=== PATIENT | female | born 1985 | race Caucasian/White ===

== ENCOUNTER 2022-12-14 23:48 | Emergency (ER) | payer BC, MEDICARE, SELFPAY ==
[2022-12-14 23:55] VITALS: PULSE 84; RESP 19
[2022-12-14 23:56] VITALS: BP 132/100; PULSE 81; RESP 17; O2SAT 97
[2022-12-14 23:57] VITALS: BP 132/100; PULSE 86; RESP 14; TEMP 36.4; O2SAT 98; BMI 36.1
[2022-12-15] VITALS (7 sets, daily range): BP systolic 129–137; BP diastolic 84–103; PULSE 80–96; RESP 6–25
--- NOTE | 2022-12-15 00:34 | ED_ITS ---
HPI - Chest Pain General Chief Complaint: Chest Pain Stated Complaint: chest pain Time Seen by Provider: 12/15/22 00:18 Source: patient Mode of arrival: walk-in Limitations: no limitations History of Present Illness HPI narrative: patient describes increased stress at home. States her 19 y.o son jumb through the window of their home and ran to the [employer] [facility] [place]. patient states she is stressed trying to deal with her son. Developed chest and back pain that started around 11Pm. Still has some pain but is feeling better. [place] a little short of breath enroute but this has resolved. Does have a history of Asthma and she Vapes. No nausea or abdominal pain. No fever or cough. Feels anxious and is asking for something for her anxiety Related Data Home Medications Medication Instructions Recorded Confirmed levothyroxine 100 mcg tablet 100 mcg PO DAILY 12/15/22 12/15/22 metformin 500 mg tablet 500 mg PO BID 12/15/22 12/15/22 methylphenidate HCl 10 mg 10 mg PO DAILY 12/15/22 12/15/22 tablet,extended release Allergies Allergy/AdvReac Type Severity Reaction Status Date / Time ziprasidone [From Geodon] Allergy Unknown Verified 12/15/22 00:01 Review of Systems ROS Status of ROS 10 or more systems reviewed and unremarkable except as noted in history and below Exam Constitutional Vital Signs - 24 hr 12/14/22 23:57 Temperature 97.6 F Pulse Rate [Monitor] 86 Respiratory Rate 14 Blood Pressure [Right Arm] 132/100 H Pulse Oximetry 98 Common normals: no apparent distress, oriented x3, no limitations, healthy appearing, alert and well nourished [facility] Common normals: normocephalic and head/scalp atraumatic Eye Common normals: PERRL, EOMs intact bilaterally, conjunctivae normal and no scleral icterus Respiratory Common normals: normal respiratory effort, no retractions, no use of accessory muscles and clear to auscultation bilaterally Cardio Common normals: no JVD, regular rate, regular rhythm, S1 normal heart sound and S2 normal heart sound GI Common normals: Normal to inspection, nondistended, normoactive bowel sounds present, soft to palpation and non-tender Extremity Common normals: normal to inspection and full ROM Neuro Common normals: oriented x3, CN's II-XII intact bilaterally, moves all extremities and no focal motor deficits Psych Mood and affect: anxious Course Vital Signs Vital signs: Vital Signs Temperature 97.6 F 12/14/22 23:57 Pulse Rate 86 12/14/22 23:57 Respiratory Rate 14 12/14/22 23:57 Blood Pressure 132/100 H 12/14/22 23:57 Pulse Oximetry 98 12/14/22 23:57 Temperature 97.6 F 12/14/22 23:57 Pulse Rate 86 12/14/22 23:57 Respiratory Rate 14 12/14/22 23:57 Blood Pressure 132/100 H 12/14/22 23:57 Pulse Oximetry 98 12/14/22 23:57 MDM - Chest Pain MDM Narrative Medical decision making narrative: patient presents complaining of increased stress at home related to her 19 y.o son. Presented with chest and back pain and feeling anxious. Given dose of ativan and was able to relax. Workup in the department included a normal EKG. neg d-dimer and neg troponin. She did not want to wait for repeat Troponin. She feels her symptoms are all anxiety related. Discharged home to follow up with her doctor Lab Data Labs: Lab Results 12/15/22 Range/Units 00:05 WBC 8.6 (4.0-11.0) 10^3/uL RBC 4.99 (4.20-5.40) 10^6/uL Hgb 14.6 (12.0-16.0) g/dL Hct 43.0 (36.0-48.0) % MCV 86.2 (81.0-99.0) fL MCH 29.3 (26.7-34.0) pg MCHC 34.0 (29.9-35.2) g/dL RDW 12.1 (11.0-15.0) % Plt Count 308 (150-450) 10^3/uL MPV 10.5 (9.5-13.5) fL Neut % (Auto) 47.5 (43.0-75.0) % Lymph % (Auto) 41.4 (20.5-60.0) % [place] % (Auto) 6.7 (1.7-12.0) % Eos % (Auto) 3.7 (0.9-7.0) % Baso % (Auto) 0.5 (0.2-2.0) % Neut # (Auto) 4.1 (1.4-6.5) 10^3/uL Lymph # (Auto) 3.5 (1.2-3.8) 10^3/uL [place] # (Auto) 0.6 (0.3-0.8) 10^3/uL Eos # (Auto) 0.3 (0.0-0.7) 10^3/uL Baso # (Auto) 0.0 (0.0-0.1) 10^3/uL Abs Immat Gran (auto) 0.02 (0.00-0.03) 10^3/uL Imm/Tot Granulo (auto) 0.2 (0.0-0.5) % D-Dimer <0.19 (<=0.59) mg/L FEU Sodium 139 (136-145) mmol/L Potassium 3.7 (3.5-5.1) mmol/L Chloride 104 (98-107) mmol/L Carbon Dioxide 24.8 (21.0-32.0) mmol/L Anion Gap 13.9 BUN 7.0 (7.0-18.0) mg/dL Creatinine 0.80 (0.55-1.02) mg/dL Est GFR ( Amer) >60 (>=60) Est GFR (Non-Af Amer) >60 (>=60) BUN/Creatinine Ratio 8.8 Glucose 87 (74-106) mg/dL Calcium 9.1 (8.5-10.1) mg/dL Troponin I High Sens 12.7 (4.0-51.3) pg/mL Discharge Plan Discharge Chief Complaint: Chest Pain Clinical Impression: Anxiety, Chest pain Patient Disposition: Home, Self-Care Prescriptions / Home Meds: No Action metformin 500 mg tablet 500 mg PO BID methylphenidate HCl 10 mg tablet extended release 10 mg PO DAILY levothyroxine 100 mcg tablet 100 mcg PO DAILY Instructions: Chest Pain (ED), Anxiety (ED) Additional Instructions: follow up with your family doctor in the next 2-3 days for recheck Stand Alone Forms: Portal Instructions Referrals: Physician,Non-Staff, MD [Primary Care Provider] - 1 week
--- NOTE | 2022-12-15 00:38 | ECG_ITS ---
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
--- NOTE | 2022-12-15 00:38 | XR_ITS ---
The [address] [address] Patient Name: ALBERTA LLAMAS MRN: [id number] date: 1985 Sex: F Assigned Patient Location: ER Current Patient Location: Accession/Order Number: [id number] Exam Date: 12/15/2022 00:40 Report Date: 12/15/2022 01:25 At the request of: KIERSTEN DOUGHERTY Procedure: XR chest 1V CXR HISTORY: Shortness of breath. COMPARISON: None. TECHNIQUE: 1 view of the chest submitted for review. FINDINGS: The lungs are hyperaerated. The cardiac silhouette measures within normal. Pulmonary vascularity is unremarkable. Osseous structures are normal for age. IMPRESSION: No plain film evidence of acute cardiopulmonary abnormality. Electronically authenticated by: DANIAL CORTEZ Date: 12/15/2022 01:25
[2022-12-15 00:54] LABS: Basophils Percent Auto 0.5 % (0.2-2.0); Eosinophils Absolute Auto 0.3 10^3/uL (0.0-0.7); Eosinophils Percent Auto 3.7 % (0.9-7.0); Hemoglobin 14.6 g/dL (12.0-16.0); Immature Granulocytes Abs Auto 0.02 10^3/uL (0.00-0.03); Immature Granulocytes Pct Auto 0.2 % (0.0-0.5); Lymphocytes Absolute Auto 3.5 10^3/uL (1.2-3.8); Lymphocytes Percent Auto 41.4 % (20.5-60.0); Mean Corpuscular Hemoglobin 29.3 pg (26.7-34.0); Mean Corpuscular Volume 86.2 fL (81.0-99.0); Mean Platelet Volume 10.5 fL (9.5-13.5); Monocytes Absolute Auto 0.6 10^3/uL (0.3-0.8); Monocytes Percent Auto 6.7 % (1.7-12.0); Neutrophils Absolute Auto 4.1 10^3/uL (1.4-6.5); Neutrophils Percent Auto 47.5 % (43.0-75.0); Platelet Count 308 10^3/uL (150-450); Red Blood Count 4.99 10^6/uL (4.20-5.40); Red Cell Distribution Width 12.1 % (11.0-15.0); White Blood Count 8.6 10^3/uL (4.0-11.0)
[2022-12-15] MEDS: LORAZEPAM 0.5 MG TABLET PO (01:01)
[2022-12-15 01:02] LABS: D Dimer <0.19 mg/L FEU (<=0.59)
[2022-12-15 01:05] LABS: Anion Gap 13.9; BUN Creatinine Ratio 8.8; Calcium 9.1 mg/dL (8.5-10.1); Carbon Dioxide 24.8 mmol/L (21.0-32.0); Chloride 104 mmol/L (98-107); Estimated GFR (African America >60 (>=60); Estimated GFR (Non-African Ame >60 (>=60); Glucose 87 mg/dL (74-106); Potassium 3.7 mmol/L (3.5-5.1); Sodium 139 mmol/L (136-145); Troponin I High Sensitivity 12.7 pg/mL (4.0-51.3)
== END 2022-12-15 02:56 | disposition home or self-care (01) ==
PROVIDERS: Emergency Provider Internal Medicine
DX: F41.9 Anxiety disorder, unspecified (principal); R07.9 Chest pain, unspecified; J45.909 Unspecified asthma, uncomplicated; F17.290 Nicotine dependence, other tobacco product, uncomplicated; Z79.890 Hormone replacement therapy; Z79.84 Long term (current) use of oral hypoglycemic drugs; Z79.899 Other long term (current) drug therapy
CPT/HCPCS: 36415; 71045; 80048; 84484; 85025; 85378; 93005; 99285

== ENCOUNTER 2023-02-02 10:45 | Outpatient (OUT) | payer BC, MEDICARE, SELFPAY ==
--- NOTE | 2023-02-02 10:54 | US_ITS ---
[address] [address] Patient Name: ALBERTA LLAMAS MRN: [id number] date: 1985 Sex: F Assigned Patient Location: US Current Patient Location: US Accession/Order Number: [id number] Exam Date: 02/02/2023 10:56 Report Date: 02/02/2023 13:40 At the request of: NITHYA RICKS Procedure: US thyroid EXAMINATION: US thyroid HISTORY: Multinodular Goiter E04.2 COMPARISON: Ultrasound thyroid 05/01/2021, ultrasound thyroid biopsy 05/16/2021 FINDINGS: RIGHT LOBE: Heterogeneous echotexture containing multiple nodules, the largest 3 nodules are: 15 mm TR 4 within mid body, 9 mm TR 4 within mid body, and 14 mm TR 3 within inferior pole. Lobe size: 4.8 x 1.6 1.6 cm LEFT LOBE: Heterogeneous echotexture texture containing multiple nodules, the largest 3 nodules are: 19 mm TR 4 within mid body, 9 mm TR 4 within mid body, and 6 mm TR 4 within superior pole. Lobe size: 4.2 x 1.9 x 1.6 cm ISTHMUS: Heterogeneous and minimally thickened. Thickness: 4 mm US/US thyroid IMPRESSION: 1. Heterogeneous thyroid gland containing numerous nodules; grossly stable. Overall appearance favors multinodular goiter. Electronically authenticated by: IRVING KRATF Date: 02/02/2023 13:40
== END 2023-02-02 10:46 | disposition home or self-care (01) ==
LOC: US 10:48
PROVIDERS: Visit Provider Otolaryngology
DX: E04.2 Nontoxic multinodular goiter (principal)
CPT/HCPCS: 76536

== ENCOUNTER 2023-04-29 07:57 | Outpatient (OUT) | payer BC, MEDICARE, SELFPAY ==
[2023-04-30 04:09] LABS: Progesterone 7.3 ng/mL (.)
== END 2023-04-29 07:58 | disposition home or self-care (01) ==
LOC: LAB 07:58
PROVIDERS: Visit Provider Obstetrics & Gynecology
DX: N92.6 Irregular menstruation, unspecified (principal); Z31.41 Encounter for fertility testing
CPT/HCPCS: 36415; 84144

== ENCOUNTER 2023-05-30 10:42 | Outpatient (OUT) | payer BC, MEDICARE, SELFPAY ==
[2023-05-31 08:11] LABS: Progesterone 12.6 ng/mL (.)
== END 2023-05-30 10:43 | disposition home or self-care (01) ==
PROVIDERS: Visit Provider Obstetrics & Gynecology
DX: N92.6 Irregular menstruation, unspecified (principal); Z31.41 Encounter for fertility testing
CPT/HCPCS: 36415; 84144

== ENCOUNTER 2023-06-29 15:30 | Outpatient (OUT) | payer BC, MEDICARE, SELFPAY ==
--- OUTSIDE RECORDS SUMMARY | 2023-06-29 15:35 | XMS_ITS | CCD ---
Author Name Unknown Address [address] [place] [address] Organization [facility] Care Team Providers Care Hvac/R Service Technician Name Role Phone Petros Lion Unavailable WeaverMelissa tee Unavailable Clint Ortiz Primary Care Physician Unavail able FAWWAD, REED H Primary Care Unavailable ROJELIO ., DR HOWARD Consulting Unavailable ROJELIO ., DR HOWARD Attending Unavailable ROJELIO ., DR HOWARD Admitting Unavailable FAWWAD, REED H Consulting Unavailable FAWWAD, REED H Attending Unavailable FAWWAD, REED H Admitting Unavailable FAWWAD, REED H Primary Care Unavailable PAY ., DR PEREZ Attending Unavailable PAY ., DR PEREZ Admitting Unavailable GRECHNY ., EFRAIN GRIMALDO Consulting Unavailabl e FAWWAD, REED H Primary Care Unavailable KEYANNA SHARPE Consulting Unavailable ROJELIO ., DR HOWARD Admitting Unavailable ROJELIO ., DR HOWARD Consulting Unavailable FAWWAD, REED H Primary Care Unavailable ROJELIO ., DR HOWARD Attending Unavailable ROJELIO ., DR HOWARD Admitting Unavailable ROJELIO ., DR HOWARD Consulting Unavailable FAWWAD, REED H Primary Care Unavailable ROJELIO ., DR HOWARD Attending Unavailable FAWWAD, REED H Consulting Unavailable FAWWAD, REED H Attending Unavailable FAWWAD, REED H Admitting Unavailable FAWWAD, REED H Primary Care Unavailable FAWWAD, REED H Primary Care Unavailable ROJELIO ., DR HOWARD Consulting Unavailable ROJELIO ., DR HOWARD Attending Unavailable ROJELIO ., DR HOWARD Admitting Unavailable FAWWAD, REED H Primary Care Unavailable SCOTT, DR DIDI Macdonald Attending Unavailabl e REINECK, DR DIDI Macdonald Admitting [facility]ailabl [facility] Unavailable ROJELIO ., DR HOWARD Consulting Unavailable ROJELIO ., DR HOWARD Admitting Unavailable ROJELIO ., DR HOWARD Attending [facility]available [facility] Primary Care Unavailable ROJELIO ., DR HOAWRD Consulting Unavailable ROJELIO ., DR HOWARD Admitting Unavailable ROJELIO ., DR HOWARD Attending Unavailable ROJELIO ., DR HOWARD Consulting Unavailable ROJELIO ., DR HOWARD Attending Unavailable [facility] Primary Care Unavailable ROJELIO ., DR HOWARD Admitting Unavailable ROJELIO ., DR HOWARD Admitting Unavailable ROJELIO ., DR HOWARD Consulting Unavailable FAWWAD, [facility] Primary Care Unavailable ROJELIO ., DR HOWARD Attending Unavailable ROJELIO ., DR HOWARD Admitting Unavailable ROJELIO ., DR HOWARD Consulting Unavailable [facility] Primary Care Unavailable ROJELIO ., DR HOWARD Attending Unavailable ROJELIO ., DR HOWARD Admitting Unavailable ROJELIO ., DR HOWARD Consulting Unavailable ROJELIO ., DR HOWARD Attending Unavailable [facility], DR RUANO Primary Care Unavailable FAWAD, REED H Consulting Unavailable FAWAD, REED H Attending Unavailable FAWAD, REED H Admitting Unavailable FAWWAD, REED H Primary Care Unavailable Clint Ortiz Primary Care Physician Unavail able Clint Ortiz Attending Unavailable Clint Ortiz Attending Unavailable Clint Ortiz Attending Unavailable Clint Ortiz Attending Unavailable Clint Ortiz Attending Unavailable Clint Ortiz Attending Unavailable Clint Ortiz Referring Unavailable Clint Ortiz Admitting Unavailable Clint Ortiz Attending Unavailable Clint Ortiz Referring Unavailable Clint Ortiz Admitting Unavailable Nick Vinnie W. Admitting Unavailable Nick Vinnie W. Attending Unavailable Clint Ortiz Admitting Unavailable Clint Ortiz Attending Unavailable Clint Ortiz Attending Unavailable Clint Ortiz Admitting Unavailable Nick Vinnie W. Attending Unavailable Clint Ortiz Attending Unavailable Clint Ortiz Attending Unavailable Clint Ortiz Attending Unavailable Allergies Allergy Classification Reported Allergen(s) Allergy Type Date of Onset Reaction(s) Facility (16 sources) ziprasidone; Translations: [ziprasidone] Drug Allergy anaphylaxis, Anaphylaxis (disorder) [facility] Care (2 sources) ziprasidone; Translations: [Geodon] Drug Allergy [facility] (1 source) Misc-Drug Drug allergy (disorder) [facility] Medications Current Medications Medication Drug Class(es) Dates Sig (Normalized) Sig (Original) [id number] 200 actuat albuterol 0.09 mg/actuat metered dose inhaler (1 source) beta2-Adrenergic Agonist Start: 11-15-2021 take 2 puff(s) by inhalation every four to six hours as needed Albuterol Sulfate HFA 108 (90 Base) MCG/ACT 2 puffs as needed Inhalation every 4-6 hours for 14 days Nov, Active amitriptyline hydrochloride 10 mg oral tablet (1 source) Tricyclic Antidepressant take 1 tablet by mouth every twenty-four hours Amitriptyline HCl 10 MG 1 tablet at bedtime Orally Once a day Active atomoxetine 40 mg oral capsule (1 source) Norepinephrine Reuptake Inhibitor Start: 10-21-2022 take 1 capsule by mouth once daily in the morning Strattera 40 mg Cap 40 mg = 1 cap(s), Oral, qAM, # 30 cap(s), Refills(s) 5, Pharmacy: [facility]/pharmacy #[id number], 158, cm, 09/29/22 9:07:00 EDT, Height/Length Dosing, 92.3, kg, 09/29/22 9:07:00 EDT, Weight Dosing Start Date: 10/21/22 Status: Ordered benzonatate 100 mg oral capsule (1 source) Non-narcotic Antitussive Start: 11-15-2021 take 1 capsule by mouth three times daily as needed Tessalon Perles 100 MG 1 capsule as needed Orally Three times a day for 7 days Nov, Active busPIRone hydrochloride 10 mg oral tablet (8 sources) Start: 04-21-2023 take 1 tablet by mouth twice daily busPIRone 10 mg Tab 10 mg = 1 tab(s), Oral, BID, # 60 tab(s), Refills(s) 5, Pharmacy: [facility]/pharmacy #[id number], 158, cm, 04/21/23 8:07:00 EST, Height/Length Dosing, 86, kg, 04/21/23 8:07:00 EST, Weight Dosing Start Date: 04/21/23 Status: Ordered Start: 02-18-2023 take 1 tablet by rossana twice daily busPIRone 5 mg Tab 5 mg = 1 tab(s), Oral, BID, # 60 tab(s), Refills(s) 5, Pharmacy: [facility]/pharmacy #[id number], 158, cm, 02/18/23 10:07:00 EDT, Height/Length Dosing, 85.9, kg, 02/18/23 10:07:00 EDT, Weight Dosing Start Date: 02/18/23 Status: Ordered DULoxetine 30 mg delayed release oral capsule (2 sources) Serotonin and Norepinephrine Reuptake Inhibitor Start: 06-25-2023 take 1 capsule by mouth twice daily duloxetine 30 mg oral delayed release capsule 30 mg = 1 cap(s), Oral, BID, # 60 cap(s), Refills(s) 2, Pharmacy: [facility]/pharmacy #[id number], 155, cm, 06/25/23 15:06:00 EST, Height/Length Dosing, 87.5, kg, 06/25/23 15:06:00 EST, Weight Dosing Start Date: 06/25/23 Status: Ordered letrozole 2.5 mg oral tablet (16 sources) Aromatase Inhibitor Start: 09-29-2022 Femara 2.5 mg Tab Refills(s) 0 Start Date: 09/29/22 Status: Ordered take 1 tablet by rossana every twenty-four hours Femara 2.5 MG 1 tablet Orally Once a day Active levothyroxine sodium 0.075 mg oral tablet (16 sources) l-Thyroxine Start: 04-21-2023 take 1 tablet by mouth once daily levothyroxine 75 mcg (0.075 mg) Tab 75 mcg = 1 tab(s), Oral, Daily, # 30 tab(s), Refills(s) 5, Pharmacy: [facility]/pharmacy #[id number], 158, cm, 04/21/23 8:07:00 EST, Height/Length Dosing, 86, kg, 04/21/23 8:07:00 EST, Weight Dosing Start Date: 04/21/23 Status: Ordered Start: 01-07-2023 take 1 tablet by rossana th once daily levothyroxine 88 mcg (0.088 mg) Tab 88 mcg = 1 tab(s), Oral, Daily, # 30 tab(s), Refills(s) 5, Pharmacy: [facility]/pharmacy #[id number], 158, cm, 01/07/23 10:49:00 EDT, Height/Length Dosing, 86.3, kg, 01/07/23 10:49:00 EDT, Weight Dosing Start Date: 01/07/23 Status: Ordered Start: 11-21-2022 take 1 tablet by rossana th once daily levothyroxine 100 mcg (0.1 mg) Tab 100 mcg = 1 tab(s), Oral, Daily, # 90 tab(s), Refills(s) 4, Pharmacy: [facility]/pharmacy #[id number], 158, cm, 09/29/22 9:07:00 EDT, Height/Length Dosing, 92.3, kg, 09/29/22 9:07:00 EDT, Weight Dosing Start Date: 11/21/22 Status: Ordered Start: 09-29-2022 take 1 tablet by rossana th once daily levothyroxine 100 mcg (0.1 mg) Tab 100 mcg = 1 tab(s), Oral, Daily, # 30 tab(s), Refills(s) 0 Start Date: 09/29/22 Status: Ordered take 1 tablet by rossana th once daily in the morning Levothroid 100 MCG 1 tablet in the morning on an empty stomach Orally Once a day Active metFORMIN hydrochloride 500 mg oral tablet (16 sources) Biguanide Start: 11-21-2022 take 1 tablet by mouth twice daily metformin 500 mg Tab 500 mg = 1 tab(s), Oral, BID, # 180 tab(s), Refills(s) 4, Pharmacy: [facility]/pharmacy #[id number], 158, cm, 09/29/22 9:07:00 EDT, Height/Length Dosing, 92.3, kg, 09/29/22 9:07:00 EDT, Weight Dosing Start Date: 11/21/22 Status: Ordered Start: 09-29-2022 take 1 tablet by rossana th twice daily metformin 500 mg Tab 500 mg = 1 tab(s), Oral, BID, # 60 tab(s), Refills(s) 0 Start Date: 09/29/22 Status: Ordered take 1 tablet by rossana every twenty-four hours metFORMIN HCl 500 MG 1 tablet with a meal Orally Once a day Active 8 hr methylphenidate hydrochloride 20 mg extended release oral tablet (11 sources) Central Nervous System Stimulant Start: 06-09-2023 take 1 tablet by mouth once daily methylphenidate 20 mg ER Tab 20 mg = 1 tab(s), Oral, Daily, # 30 tab(s), Refills(s) 0, Pharmacy: [facility]/pharmacy #[id number], 155, cm, 06/07/23 9:24:00 EST, Height/Length Dosing, 85.6, kg, 06/07/23 9:24:00 EST, Weight Dosing Start Date: 06/09/23 Status: Ordered Start: 05-12-2023 take 1 tablet by rossana once daily methylphenidate 20 mg ER Tab 20 mg = 1 tab(s), Oral, Daily, # 30 tab(s), Refills(s) 0, Pharmacy: [facility]/pharmacy #[id number], 158, cm, 04/21/23 8:07:00 EST, Height/Length Dosing, 86, kg, 04/21/23 8:07:00 EST, Weight Dosing Start Date: 05/12/23 Status: Ordered Start: 04-08-2023 take 1 tablet by rossana once daily methylphenidate 20 mg ER Tab 20 mg = 1 tab(s), Oral, Daily, # 30 tab(s), Refills(s) 0, Pharmacy: [facility]/pharmacy #[id number], 158, cm, 02/18/23 10:07:00 EDT, Height/Length Dosing, 85.9, kg, 02/18/23 10:07:00 EDT, Weight Dosing Start Date: 04/08/23 Status: Ordered Start: 02-18-2023 take 1 tablet by [facility] once daily methylphenidate 20 mg ER Tab 20 mg = 1 tab(s), Oral, Daily, # 30 tab(s), Refills(s) 0, Pharmacy: [facility]/pharmacy #[id number], 158, cm, 02/18/23 10:07:00 EDT, Height/Length Dosing, 85.9, kg, 02/18/23 10:07:00 EDT, Weight Dosing Start Date: 02/18/23 Status: Ordered Start: 01-07-2023 take 1 tablet by rossana th once daily methylphenidate 20 mg ER Tab 20 mg = 1 tab(s), Oral, Daily, # 30 tab(s), Refills(s) 0, [id number] 158, cm, 01/07/23 10:49:00 EDT, Height/Length Dosing, 86.3, kg, 01/07/23 10:49:00 EDT, Weight Dosing Start Date: 01/07/23 Status: Ordered Start: 12-03-2022 take 1 tablet by rossana th once daily methylphenidate 10 mg oral tablet, extended release 10 mg = 1 tab(s), Oral, Daily, # 30 tab(s), Refills(s) 0, [id number], 158.3, cm, 12/03/22 11:34:00 EDT, Height/Length Dosing, 87.3, kg, 12/03/22 11:34:00 EDT, Weight Dosing Start Date: 12/03/22 Status: Ordered permanent handicap placard (9 sources) Start: 01-07-2023 permanent hand icap placard permanent handicap placard, See Instructions, 1 EA, 11, for chronic medical condition, Supply, 158, cm, 01/07/23 10:49:00 EDT, Height/Length Dosing, 86.3, kg, 01/07/23 10:49:00 EDT, Weight Dosing Start Date: 01/07/23 Status: Ordered Multivitamins (14 sources) Start: 09-29-2022 take 1 tablet by mouth once daily Multivitamins 1 tab(s), Oral, Daily, Refill(s) 0 Start Date: 09/29/22 Status: Ordered Completed/Discontinued Medications Medication Drug Class(es) Dates Sig (Normalized) Sig (Original) Albuterol (Eqv-ProAir HFA) 90 mcg/inh inhalation aerosol (11 sources) Start: 05-04-2023 take 8.5 g by inhalation every six hours Albuterol (Eqv-ProAir HFA) 90 mcg/inh inhalation aerosol 180 mcg, 2 puff(s), Inhalation, q6hr, 8.5 gm, Refill(s) , [facility]/pharmacy #[id number], 158, cm, 04/21/23 8:07:00 EST, Height/Length Dosing, 86, kg, 04/21/23 8:07:00 EST, Weight Dosing Start Date: 05/04/23 Status: Ordered Start: 10-29-2022 take 8.5 g by inhala tion every six hours Albuterol (Eqv-ProAir HFA) 90 mcg/inh inhalation aerosol 180 mcg, 2 puff(s), Inhalation, q6hr, 8.5 gm, Refill(s) 11, [facility]/pharmacy #[id number], 158, cm, 09/29/22 9:07:00 EDT, Height/Length Dosing, 92.3, kg, 09/29/22 9:07:00 EDT, Weight Dosing Start Date: 10/29/22 Status: Ordered Triamcinolone (2 sources) Corticosteroid Start: 08-15-2021 Kenalog -40 mg Aug, 40 mg Problems Active Problems Problem Classification Problem Date Documented Date Episodic/Chronic Anxiety disorders (18 sources) Anxiety disorder; Translations: [Anxiety disorder, unspecified] Onset: 09-29-2022 Chronic Asthma (16 sources) Asthma; Translations: [Unspecified asthma, uncomplicated] Onset: 09-29-2022 Chronic Attention-deficit, conduct, and disruptive behavior disorders (19 sources) Attention deficit hyperactivity disorder; Translations: [Attention-deficit hyperactivity disorder, unspecified type] Onset: 09-29-2022 Chronic Female infertility (4 sources) Female infertility associated with anovulation; Translations: [FE INFERTILITY ASSOC W/ANOVULATION] Onset: 10-16-2022 Chronic Fluid and electrolyte disorders (11 sources) Hypokalemia; Translations: [Hypokalemia] Onset: 01-07-2023 Episodic Immunizations and screening for infectious disease (2 sources) Encounter for screening for human papillomavirus (HPV); Translations: [Vaccination given] Onset: 09-01-2022 Episodic Mood disorders (17 sources) Mild recurrent major depression; Translations: [Major depressive disorder, recurrent, mild] Onset: 09-29-2022 Chronic Other congenital anomalies (3 sources) Other specified congenital deformities of feet; 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] Onset: 08-15-2021 Resolved: 08-15-2021 Chronic Other congenital anomalies (2 sources) Congenital deformity of foot; 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] Onset: 09-29-2022 Chronic Other connective tissue disease (1 source) H/O: musculoskeletal disease; Translations: [Personal history of other diseases of the musculoskeletal system and connective tissue] Onset: 09-29-2022 Episodic Other connective tissue disease (15 sources) Fibromyalgia; Translations: [Fibromyalgia] Onset: 09-29-2022 Episodic Other endocrine disorders (15 sources) Polycystic ovary syndrome; Translations: [Polycystic ovarian syndrome] Onset: 09-29-2022 Chronic Other injuries and conditions due to external causes (1 source) H/O: injury; Translations: [Personal history of other (healed) physical injury and trauma] Onset: 09-29-2022 Episodic Other nervous system disorders (1 source) 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; Translations: [Personal history of other diseases of the nervous system and sense organs] Onset: 09-29-2022 Episodic Other nervous system disorders (14 sources) H/O: migraine 09-29-2022 Episodic Other non-traumatic joint disorders (1 source) Ankle joint effusion; Translations: [Effusion, unspecified ankle] Onset: 06-24-2023 Episodic Other nutritional; endocrine; and metabolic disorders (2 sources) Obese class II; Translations: [Body mass index (BMI) 36.0-36.9, adult] Onset: 09-29-2022 Chronic Other nutritional; endocrine; and metabolic disorders (2 sources) Metabolic syndrome X; Translations: [Metabolic syndrome] Onset: 09-29-2022 Chronic Other nutritional; endocrine; and metabolic disorders (14 sources) Insulin resistance 09-29-2022 Chronic Other nutritional; endocrine; and metabolic disorders (5 sources) Obese class I; Translations: [Body mass index (BMI) 34.0-34.9, adult] Onset: 12-03-2022 Chronic Other nutritional; endocrine; and metabolic disorders (1 source) Obesity; Translations: [Other obesity due to excess calories] Onset: 02-18-2023 Chronic Other screening for suspected conditions (not mental disorders or infectious disease) (6 sources) Procedure carried out on subject; Translations: [Encounter for screening for lipoid disorders] Onset: 08-26-2022 Episodic Other skin disorders (1 source) Callosity; Translations: [Corns and callosities] Onset: 02-18-2023 Episodic Other skin disorders (8 sources) Social Circle - lesion 02-18-2023 Episodic Other skin disorders (2 sources) Swollen ankle region 06-24-2023 Episodic Residual codes; unclassified (1 source) Past history of procedure; Translations: [Other specified postprocedural states] Onset: 06-24-2023 Episodic Screening and history of mental health and substance abuse codes (16 sources) H/O: psychiatric disorder; Translations: [Personal history of other mental and behavioral disorders] Onset: 09-29-2022 Episodic Substance-related disorders (17 sources) Nicotine dependence; Translations: [Nicotine dependence, unspecified, uncomplicated] Onset: 09-29-2022 Chronic Thyroid disorders (20 sources) Non-toxic uninodular goiter; Translations: [Nontoxic single thyroid nodule] Onset: 05-19-2022 Chronic Unclassified (2 sources) Bilateral talipes equinovarus 06-24-2023 Unclassified (2 sources) History of operative procedure on foot 06-24-2023 Past or Other Problems Problem Classification Problem Date Documented Da te Episodic/Chronic Abdominal pain (4 sources) Pelvic and perineal pain; Translations: [PELVIC AND PERINEAL PAIN] Onset: 06-27-2022 Episodic Cardiac dysrhythmias (5 sources) Palpitations; Translations: [PALPITATIONS] Onset: 05-22-2022 Episodic Menopausal disorders (1 source) Hormone replacement therapy; Translations: [HORMONE REPLACEMENT THERAPY] Onset: 07-01-2022 Episodic Other aftercare (1 source) skilled nursing (current) use of oral hypoglycemic drugs; Translations: [CENTRAL COMMUNICATIONS SPECIALIST USE ORAL HYPOGLYCEMIC DX] Onset: 07-01-2022 Episodic Other connective tissue disease (1 source) Other enthesopathies, not elsewhere classified Onset: 08-15-2021 Resolved: 08-15-2021 Episodic Other endocrine disorders (4 sources) Endocrine disorder, unspecified; Translations: [ENDOCRINE DISORDER UNSPECIFIED] Onset: 10-24-2021 Episodic Other non-traumatic joint disorders (1 source) Pain in left shoulder Onset: 08-15-2021 Resolved: 08-15-2021 Episodic Residual codes; unclassified (4 sources) Procedure and treatment not carried out due to patient leaving prior to being seen by health care provider; Translations: [PROC AND TX NOT CARRIED OUT PT LEAVE] Onset: 05-24-2022 Episodic Unclassified (1 source) Cough R05.9 Onset: 11-15-2021 Resolved: 11-15-2021 Viral infection (1 source) COVID-19 Onset: 11-15-2021 Resolved: 11-15-2021 Results Test Name Value Interpretation Reference Range Facil ity CHEMISTRYOrdered By: SYSTEM SYSTEM on 06-25-2023 Free T4 [Mass/Vol] 1.19 ng/dL Normal 0.58 - 1. 64 ng/dL Remisol Chem TSH Qn 0.14 m[IU]/L Low 0.34 - 5.60 mcIU/mL Remisol Chem Ambulatory Visit Summaryon 1 08-08-2022 Ambulatory Visit Summary DOMINIQUE LLAMAS :1985 Visit Date:06/07/2023 Ambulatory Visit Instructions Your Care Team Attending Physician - Nick TAN, Vinnie W. Primary Care Physician - Clint Ortiz DO This Is Your Medications List Misc Prescription (permanent handicap placard) albuterol (Albuterol (Eqv-ProAir HFA) 90 mcg/inh inhalation aerosol) busPIRone (busPIRone 10 mg Tab) letrozole (Femara 2.5 mg Tab) levothyroxine (levothyroxine 75 mcg (0.075 mg) Tab) metformin (metformin 500 mg Tab) methylphenidate (methylphenidate 20 mg ER Tab) multivitamin, ( Multivitamins) Procedures Performed Carpal tunnel, delivery only;, Colonoscopy, Dilation and curettage, diagnostic and/or therapeutic (nonobstetrical), Gallbladder operation. Discharge Vitals Temperature (Oral) 36.6 ?C Heart Rate (Peripheral) 89 Blood Pressure 119/79 Height 155 cm Height 61 in Weight 85.6 kg Weight 188.32 lb BMI 35.63 What to do next Scheduled Follow-Up Appointments Thursday 8:00 AM EST With: Clint Ortiz DO Where: [facility] [place] [facility] [address] [place] [address]-\.br\ Medications\.br\ What How Much When Why Instructions\.br \ Unchanged albuterol (Albuterol (Eqv-ProAir HFA) 90 mcg/ inh inhalation aerosol) 2 Puffs Inhalation Every 6 hours\.br\ Unchanged busPIRone (busPIRone 10 mg Tab) 1 Tablets By Mouth 2 times a day Anxiety\.br\ Unchanged letrozole (Femara 2.5 mg Tab)\.br\ Unchanged levothyroxine (levothyroxine 75 mcg (0.075 mg) Tab) 1 Tablets By Mouth Every day\.br\ Unchanged metformin (metformin 500 mg Tab) 1 Tablets By Mouth 2 times a day\.br\ Unchanged methylphenidate (methylphenidate 20 mg ER Tab) 1 Tablets By Mouth Every day\.br\ Unchanged Misc Prescription (permanent handicap placard) See instructions [place] for chronic medical condition \.br\ Unchanged multivitamin, ( Multivitamins) 1 Tablets By Mouth Every day\.br\ Allergies\.br\ Geodon (Anaphylaxis)\.b r\ Problems\.br\ Ongoing - Any problem that you are currently receiving treatment for.\.br\ ADHD\.br\ Anxiety\.br\ Asthma\.br\ Social Circle of foot\.br\ Fibromyalgia\.br \ History of migraine\.br\ History of posttraumatic stress disorder (PTSD)\.br\ Hypokalemia\.br\ Hypothyroidism\. br\ Insulin resistance\.br\ Mild recurrent major depression\.br\ PCOS (polycystic ovarian syndrome)\.br\ Smoker\.br\ Thyroid nodule\.br\ Patient Survey\.br\ You may receive a survey via text or e-mail asking about your office visit. Please share your experience with us by completing your survey. We appreciate your feedback and thank you for choosing us for your care.\.br\ \.br\ [facility] XR Ankle 3+ Views Lefton XR Ankle 3+ Views Left Exam Date/Time: 06/07/2023 09:39 EST Reason for Exam: Sprain/Strain Report IMPRESSION: THERE ARE NO ACUTE OSSEOUS CHANGES. THERE IS LATERAL SOFT TISSUE SWELLING. CLINICAL HISTORY: Sprain/Strain COMPARISON: NONE. 4 views LEFT ANKLE FINDINGS: There are no lytic or sclerotic bone lesions. The visualized bones are demineralized. There is no acute fracture or subluxation. There are chronic-appearing deformities of the anterior calcaneus which may be secondary to prior trauma. There is soft tissue swelling over the lateral malleolus which may indicate a soft tissue, ligamentous injury. There are no radiopaque foreign bodies. Ordering Provider: Vinnie Romero FINAL REPORT Dictated: 06/07/2023 10:09 am Lorenzo Evans MD, V. Signed (Electronic Signature): 06/07/2023 10:09 am Signed by: Lorenzo Evans MD, V. Transcribed by: JOVANNY Technologist: MAYELIN Technical Comments Radiation Dose: Ka,r in mGy = . DAP = . Normal [facility] Medication Consenton 023 Medication Consent [id number] .00TIFF Normal [facility] Consent for Flu Vaccineon Consent for Flu Vaccine [id number] .00TIFF Normal [facility] Family Medicine Office/Clini c Noteon 04-21-2023 Family Medicine Office/Clinic Note Chief Complaint F/U HPI Staff Patient here for 2 month F/U. ADHD followup: Sleeping well: Yes, 6-8 hours Blood pressure:Reviewed, _ Concerns/complaints: None Controlled substance:yes Urine Drug Screen done:_no Medication Agreement updated: Yes PHQ 02/18 UMU/11 ALEXANDER 02/18/23 Labs 04/20/23 History of Present Illness 38 Years old Female here to f/u for 2 month f/u med review here with [facility] HPI staff / Chief Complaint confirmed with the patient Interval history: I was having some palpitations on the way to [facility]'s appt yesterday. this has been a chronic issue for this patient has worn a holter monitor as long as 30 days and they never found anything has been through it more than once had hives as a result of the adhesive on her last time around I went a few days without ADHD med and everyone around me kept telling me how much better I am with the meds vaping the equivalent to a pack a day it's my go - to when I'm stressed or thinking a lot, stressed February 20, 2023-ENT Thyroid nodule-no change compared to 2020 ultrasound recommend periodic ultrasound monitoring at [facility] Follow-up 6 months February 18, 2023-PCP ADHD well controlled on methylphenidate 20 mg and has completed treatment to distraction Follow-up 3 months Anxiety buspirone 5 mg twice daily Hypokalemia overdue for labs Review of Systems PHQ Score Initial Depression Screen Score: 2 Physical Exam Vitals & Measurements HR: 73(Peripheral) BP: 114/80 SpO2: 98% HT: 62 in HT: 158 cm WT: 86 kg WT: 189.2 lb BMI: 34.45 PHYSICAL EXAM Constitutional: Vital signs reviewed; DOMINIQUE LLAMAS is well nourished, no acute distress Lungs: Clear to auscultation, non-labored respiration - expansion is symmetric Heart: Normal rate and rhythm, normal peripheral perfusion Lymph: Deferred Abd: Deferred : Deferred MSK: Normal gait and station Skin: Warm, dry Neurologic: Awake, alert and oriented, speech is normal Psychiatric: Cooperative, appropriate mood and affect, judgement is appropriate - fidgety Assessment/Plan 1. ADHD (F90.9: Attention-deficit hyperactivity disorder, unspecified type) Impression: Chronic Well controlled ADHD On methylphenidate The patient has not established with counseling The patient describes no side effects Plan: Continue current dose of methylphenidate 20mg ER The patient has finished the book Driven to Distraction - continues to reference it when discussing her and her 's struggles OARRS reviewed today and demonstrates no concern for prescription disuse Emphasized again that long-term treatment plan includes cognitive behavioral therapy specific for ADHD f/u 3 months 2. Anxiety (F41.9: Anxiety disorder, unspecified) Chronic Stable Coping is appropriate No new concerns With a subtle room for improvement, I will increase to 10mg buspirone BID Patient contracts for safety F/u 3 months Ordered: busPIRone, 10 mg = 1 tab(s), Oral, BID, # 60 tab(s), Refills(s) 5, Pharmacy: [facility]/pharmacy #[id number], 158, cm, 04/21/23 8:07:00 EST, Height/Length Dosing, 86, kg, 04/21/23 8:07:00 EST, Weight Dosing 3. Thyroid nodule (E04.1: Nontoxic single thyroid nodule) Chronic Stable Established with ENT Given the lack of change compared to 2021 US, OK for patient to monitor at [facility] (for her convenience) f/u [address] Oquendo 4. Smoker (F17.200: Nicotine dependence, unspecified, uncomplicated) Chronic Current Not resolving as expected Sub-optimal control as the patient continues to smoke VAPE - roughly equal to a pack per day 3-10 min discussion about quitting smoking Discussed risk factors for smoking including heart disease, stroke, cancer, COPD Discussed my approach to smoking cessation including slowly decreasing the number of cigarettes the patient carries in their pack, how medications can help, and how I plan to discuss this every time I see them Patient acknowledges this Behavior / what compels the patient to continue smoke is discussed today Defer medication today f/u month Ordered: Smoking and tobacco cessation counseling visit greater than 3 minutes, up to 10 minutes G0436 Adult BMI 34.0-34.9 kg/sq m (Z68.34: Body mass index [BMI] 34.0-34.9, adult) Orders: Basic Metabolic Panel eGFR Free T4 Magnesium Level T3 Total Thyroid Stimulating Hormone Follow-up No qualifying data available Problem List/Past Medical History Ongoing ADHD Anxiety Asthma Social Circle of foot Fibromyalgia History of migraine History of posttraumatic stress disorder (PTSD) Hypokalemia Hypothyroidism Insulin resistance Mild recurrent major depression PCOS (polycystic ovarian syndrome) Smoker Thyroid nodule Historical No qualifying data Procedure/Surgical History Carpal tunnel, delivery only;, Colonoscopy, Dilation and curettage, diagnostic and/or therapeutic (nonobstetrical), Gallbladder operation. Medication (more content not included)... Normal [facility] Comment on above: Result Comment: Elec tronically Signed By: Clint Ortiz DO\Date and Time Signed: 04/21/23 08:42 EST T3 Totalon 04-21-2023 T3 [Mass/Vol] 112 ng/dL Invalid Interpretation Code 71180 [facility] Comment on above: Result Comment: Perf ormed at: [facility] [address] [id number] PhD Tess Samson Performed By: #### 1 [id number], [id number], [id number], [id number], [id number], [id number] #### [facility] [address] [place] [address] BMPon 04-20-2023 Anion gap [Moles/Vol] 11 mmol/L Normal 6-16 [facility] Comment on above: Performed By: #### 1 [id number], [id number], 9829692, [id number], 3765490, 1233514 #### [facility] [address] [place] [address] Calcium [Mass/Vol] 9.5 mg/dL Normal 8.9-11.1 [facility] Comment on above: Performed By: #### 1 [id number], 0827630, 1729882, 18713309, 8630969, 7947017 #### [facility] [address] [place] [address] Chloride [Moles/Vol] 105 mmol/L Normal 101-111 [facility] Comment on above: Performed By: #### 1 [id number], 3595496, 1525119, 74933103, 6288952, 2517445 #### [facility] [address] [place] [address] CO2 [Moles/Vol] 26 mmol/L Normal 21-31 [facility] Comment on above: Performed By: #### 1 [id number], 7557278, 6833716, 62386982, 5675596, 2864465 #### [facility] [address] [place] [address] Creatinine [Mass/Vol] 0.9 mg/dL Normal 0.5-1.3 [facility] Comment on above: Performed By: #### 1 3819349, 0141163, 1055307, 79566314, 3937376, 5450764 #### [facility] [address] [place] [address] Glucose [Mass/Vol] 90 mg/dL Normal 55-199 [facility] Comment on above: Result Comment: If t his glucose result represents a fasting glucose, interpretation should refer to the following reference range: 55-99 mg/dL Performed By: #### 1 [id number], 9784923, 7439740, 70058054, 4953442, 5322593 #### [facility] [address] [place] [address] Potassium [Moles/Vol] 4.2 mmol/L Normal 3.5-5.3 [facility] Comment on above: Performed By: #### 1 8013101, 8254360, 1921428, 60284098, 8574137, 2060194 #### [facility] [address] [place] [address] Sodium [Moles/Vol] 138 mmol/L Normal 135-145 [facility] Comment on above: Performed By: #### 1 [id number], 8460029, 4416536, 10476921, 5751303, 5608624 #### [facility] [address] [place] [address] Urea nitrogen [Mass/Vol] 9 mg/dL Normal 5-21 [facility] Comment on above: Performed By: #### 1 1023509, 4180565, 9523327, 26273793, 5171512, 2338252 #### [facility] [address] [place] [address] Urea nitrogen/Creatinine [Mass ratio] 10 No Units Normal 10-20 [facility] Comment on above: Performed By: #### 1 0405619, 5650952, 7176372, 43220970, 4351540, 0407290 #### [facility] [address] [place] [address] CHEMISTRYOrdered By: SYSTEM SYSTEM on 04-20-2023 Anion gap [Moles/Vol] 11 mmol/L Normal 6 - 16 mEq/L [facility] Calcium [Mass/Vol] 9.5 mg/dL Normal 8.9 - 11.1 mg/dL [facility] Chloride [Moles/Vol] 105 mmol/L Normal 101 - 111 mmol/L [facility] CO2 [Moles/Vol] 26 mmol/L Normal 21 - 31 mmol/L [facility] Creatinine [Mass/Vol] 0.9 mg/dL Normal 0.5 - 1.3 mg/dL [facility] Remisol Free T4 [Mass/Vol] 1.27 ng/dL Normal 0.58 - 1. 64 ng/dL [facility] Remisol GFR/1.73 sq M.predicted among non-blacks MDRD (S/P/Bld) [Vol rate/Area] 84 mL/min/1.73 m2 Normal >=59mL/min/1.73 m2 [facility] Chem S Comment on above: Interpretive Data: C hronic kidney disease could be indicated at eGFR's of less than 60 mL/min/1.73m2. Kidney failure is indicated at less than 15 mL/min/1.73m2. Glucose [Mass/Vol] 90 mg/dL Normal 55 - 199 mg/dL [facility] Remisol Comment on above: Interpretive Data: I f this glucose result represents a fasting glucose, interpretation should refer to the following reference range: 55-99 mg/dL Magnesium [Mass/Vol] 1.8 mg/dL Normal 1.3 - 2.4 mg/dL [facility] Remisol Potassium [Moles/Vol] 4.2 mmol/L Normal 3.5 - 5.3 mmol/L [facility] Remisol Sodium [Moles/Vol] 138 mmol/L Normal 135 - 145 mmol/L [facility] Remisol TSH Qn 0.02 m[IU]/L Low 0.34 - 5.60 mcIU/mL [facility] Remisol Urea nitrogen [Mass/Vol] 9 mg/dL Normal 5 - 21 mg/dL [facility] Remisol Urea nitrogen/Creatinine [Mass ratio] 10 mg/mg Normal 10 - 20 [facility] Remisol Consent for Treatmenton 11 Consent for Treatment [id number] .[id number] Normal [facility] Free T4on 04-20-2023 Free T4 [Mass/Vol] 1.27 ng/dL Normal 0.58-1.64 [facility] Comment on above: Performed By: #### 1 [id number], 3087724, 7957341, 61371889, 2159110, 0375673 #### [facility] [address] [place] [address] Magnesiumon 04-20-2023 Magnesium [Mass/Vol] 1.8 mg/dL Normal 1.3-2.4 [facility] Comment on above: Performed By: #### 1 8113331, 8717111, 7045252, 38169931, 5887370, 7289469 #### [facility] [address] [place] [address] TSHon 04-20-2023 TSH Qn 0.02 m[IU]/L Low 0.34-5.60 [facility] Comment on above: Performed By: #### 1 3145767, 9725800, 4522609, 93506633, 6710164, 1278811 #### [facility] [address] [place] [address] eGFRon 04-20-2023 GFR/1.73 sq M.predicted among non-blacks MDRD (S/P/Bld) [Vol rate/Area] 84 mL/min/1.73 m2 Normal >=59 [facility] Comment on above: Order Comment: Order added by Discern Expert. Result Comment: Campaign Coordinator erica kidney disease could be indicated at eGFR's of less than 60 mL/min/1.73m2. Kidney failure is indicated at less than 15 mL/min/1.73m2. Performed By: #### 1 6741491, 8526872, 6140540, 75431585, 3118114, 1358671 #### [facility] [address] [place] [address] Interdisciplinary Note - Soc ial Workeron 02-25-2023 Interdisciplinary Note - [employer] This SW made tc to patient today to discuss her positive depression screen. Patient has a longstanding history of depression and states that in the past physicians have medicated her and it made her symptoms worse; she would then have inpatient psychiatric stays because of the side effects. Due to this history she is hesitant to seek any sort of help in fear that this will be the same course of action. This SW explained that she could see a counselor without having to see psychiatry and therefore medications would not be prescribed. She did provide permission for this SW to mail her a list of counseling agencies in the area. SW encouraged her to reach out if further needs arise. SW also made certain that she has the Crisis Hotline number; she states it is on her fridge. SW will remain available. Normal [facility] Consultation Noteon 09-08-20 23 Consultation Note [id number] .[id number]:127 Normal [facility] Medicine Office/Clini c Noteon 02-19-2023 Family Medicine Office/Clinic Note HPI Staff Patient here for 1 mo. F/U on meds. Patient asking about anxiety meds. Patient had Medicare wellness visit earlier today. Also has a Right foot problem reports red and inflamed after stepping on mulch. 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 Review of Systems ROS 13 point ROS negative except for HPI Physical Exam PHYSICAL EXAM Constitutional: Vital signs reviewed; DOMINIQUE LLAMAS is well nourished, no acute distress Head: Atraumatic, normocephalic Eye: EOMI, normal conjunctiva ENT: Moist oral mucosa, external inspection of ears and nose is unremarkable Neck: Trachea is midline, no tenderness Lungs: Clear to auscultation, non-labored respiration - expansion is symmetric Heart: Normal rate and rhythm, normal peripheral perfusion Lymph: Deferred Abd: Deferred : Deferred MSK: antalgic gait Skin: Warm, dry - corn on the bottom of her right foot - no evidence of infection Neurologic: Awake, alert and oriented, speech is normal, no focal deficits, CN II-XII grossly intact Psychiatric: Cooperative, appropriate mood and affect, judgement is appropriate Assessment/Plan 1. ADHD (F90.9: Attention-deficit hyperactivity disorder, unspecified type) Impression: Chronic Well controlled ADHD On methylphenidate 20mg The patient has not established with counseling - but doing well The patient describes side effects Plan: Continue current dose The patient has READ Driven to Distraction OARRS reviewed today and demonstrates no concern for prescription disuse Emphasized again that long-term treatment plan includes cognitive behavioral therapy specific for ADHD f/u 3 months 2. Anxiety (F41.9: Anxiety disorder, unspecified) Chronic Stable Coping is appropriate No new concerns Patient contracts for safety Buspirone 5mg BID discussed rationale for increasing to 10mg BID F/u 3 months Ordered: busPIRone, 5 mg = 1 tab(s), Oral, BID, # 60 tab(s), Refills(s) 5, Pharmacy: [facility]/pharmacy #[id number], 158, cm, 02/18/23 10:07:00 EDT, Height/Length Dosing, 85.9, kg, 02/18/23 10:07:00 EDT, Weight Dosing 3. Hypokalemia (E87.6: Hypokalemia) *didn't complete f/u labs 4. Asthma (J45.909: Unspecified asthma, uncomplicated) Impression: Chronic Stable PFT confirming reactive airway disease Patient describes no SOB at this time; exam reveals minimal-no bilat insp and exp wheezing in upper and lower lobes Pulse ox is appropriate Patient does have an emergency action plan for her asthma when it flares. I have provided the patient with basic education re: how to use the rescue inhaler in the event symptoms increase; the patient expresses understanding re: this plan Plan: Patient provided with hand outs re: reactive airway disease f/u 1 [address] 5[address] Social Circle of foot (L84: Corns and callosities) new to me discussed rationale for self-care vs podiatry referral deferred f/u PRN Adult BMI 34.0-34.9 kg/sq m (Z68.34: Body mass index [BMI] 34.0-34.9, adult) Ordered: Medicare Annual Visit G0438 Orders: methylphenidate, 20 mg = 1 tab(s), Oral, Daily, # 30 tab(s), Refills(s) 0, Pharmacy: [facility]/pharmacy #[id number], 158, cm, 02/18/23 10:07:00 EDT, Height/Length Dosing, 85.9, kg, 02/18/23 10:07:00 EDT, Weight Dosing 1124F ACP discussed and documented; patient declines surrogate decision or ACPr 1125F Pain severity quantified; pain present Annual alcohol misuse screening, 15 min G0442 Body Mass Index (BMI) documented 3008F Colorectal CA screening results documented and reviewed 3017F Functional status assessed 1170F Influenza immunization administered or previously received 4274F Medication list documented in medical record 1159F Patient screen for fall risk: no falls in last year or 1 fall with no injury in last year 1101F Plan of care to address pain documented 0521F Pneumococcus immunization status assessed 1022F Review of all meds by a prescribing practitioner or clinical pharmacist documented in EHR 1160F Screened for tobacco use AND received tobacco cessation intervention 4004F Tobacco Use Cessation Intermediate 3-10 Minutes 59436 Total time spent TODAY preparing the chart, face to face with the patient and family and time spent documenting, reviewing, and ordering tests was 30 mins. Follow-up No qualifying data available Problem List/Past Medical History Ongoing ADHD Anxiety Asthma Social Circle of foot Fibromyalgia History of migraine History of posttraumatic stress disorder (PTSD) Hypokalemia Hypothyroidism (more content not included)... Normal [facility] Comment on above: Result Comment: Elec tronically Signed By: Clint Ortiz DO\.ashley\Date and Time Signed: 02/19/23 16:19 EDT Family Medicine Office/Clinic Note Chief Complaint Initial AWV Review of Systems PHQ Score Initial Depression Screen Score: 3 Detailed Depression Screen Score: 8 Total Depression Screen Score: 11 Physical Exam Vitals & Measurements HR: 102(Peripheral) RR: 16 BP: 120/80 SpO2: 98% HT: 158 cm HT: 62 in WT: 85.9 kg WT: 188.98 lb BMI: 34.41 Assessment/Plan 1. Initial Medicare annual wellness visit (Z00.00: Encounter for general adult medical examination without abnormal findings) The patient was given a customized and personalized print out of all the current AHRQ USPSTF?s recommendations for preventative services and all current CDC recommended immunizations, relevant risk recommendations and the following patient brochures were given. Reviewed What can I expect during my Medicare preventative care visit CDC-Falls Prevention and home safety screening reviewed. Patient denies any falls in last 12 months, voices no worry about falling, exhibits no problems with sitting and standing. Pt voices understanding with keeping walk way area free of clutter to prevent tripping and/or falling. [place] Advance Directives reviewed, declines additional info. Patient denies any problems with ADL?s and Instrumental ADL?s. Cognitive screening completed with memory and clock face drawing. Immunization Record reviewed with the patient. JODY vaccines have been administered x 2, immunization record is up to date. Pt will bring in vaccine record to scan in her chart on her next visit. Allergies and medications reviewed and up to date. Patient denies concerns with taking medication as prescribed, reviewed OTC medications with patient with medication list up to date. Blood tests were reviewed: Discussed what tests need to be updated. Colonoscopy up to date, due for repeat in 3 years. Reviewed concerns with bladder control over past 6 months with no concerns. Reviewed pain symptoms with patient: 12/22-spine and right knee. Reviewed all outside providers that patient follows. Last visit summary notes available in chart and/or have been requested. AWV has been scheduled 02/23/2024. Alcohol screening is available yearly for patients that do and/or do not use alcohol. This Counseling Interventions are available to reduce alcohol use when there is a concern with misuse or is placing an individual at risk for future problems. The USPSTF defines alcohol misuse as risky, hazardous, or harmful drinking which places an individual at risk for future problems with alcohol consumption. This was covered on this date with 11 minutes, this included preparing to see the patient, face to face patient care, completing clinical documentation, obtaining and/or reviewing obtained history, counseling and educating the patient with the increased risks associated with alcohol misuse. Completed AUDIT risk assessment, patients risk score (0). Patient denies concerns with use, will continue to monitor with yearly Medicare wellness visits. 2. Class 1 obesity due to excess calories without serious comorbidity with body mass index (BMI) of 34.0 to 34.9 in adult (E66.09: Other obesity due to excess calories) The standard range for ages 18 and older is >=18.5 and < 25 kg/m2. Your BMI 34.41 today was above this range, this falls in the obese category and there are medical benefits to weight loss. BMI monitoring is helpful with identifying a weight problem that may be related to a medical condition, or may increase the risk for medical problems. A combination of diet and exercise can help you lose the weight. Discussed weight loss benefits to dietary management and overall health with increased cardiovascular risks associated with waist measurement >35 inches. Reminded pt importance to work on lowering current body weight with healthy dietary intake choices with understanding of portion control. Reviewed goals and patient's readiness with needing to make a healthier lifestyle change. Will work on increasing daily activity and prevent further weight gain. Will follow up with PCP during office visits for progress. 3. History of posttraumatic stress disorder (PTSD) (Z86.59: Personal history of other mental and behavioral disorders) Stable. Pt unable to take SSRI's. Pt will follow with PCP as directed. 4. Insulin resistance (E88.81: Metabolic syndrome) Stable. Pt taking Metformin daily as directed. Last FBS was 91 checked on 12/03/2022. Will continue to monitor and follow with PCP as directed. 5. Mild recurrent major depression (F33.0: Major depressive disorder, recurrent, mild) Follows up with PCP with medication management and symptom control. PHQ-9 risk assessment completed with positive findings.Total risk score 11. Patient denies any suicidal ideations at this time. Reviewed additional signs/symptoms to monitor for and report to provider. 6. Smoker (F17.200: Nicotine dependence, unspecified, uncomplicated) Spent a total of 11 minutes on this date completing smoking cessation counseling. This included preparing to see the patient, fa (more content not included)... Normal [facility] Comment on above: Result Comment: Elec tronically Signed By: Clint Ortiz DO\.br\Date and Time Signed: 02/19/23 13:29 EDT\.br\Electronically Co-Signed By: Chaka Coleman LPN\.br\Date and Time Co-Signed: 02/18/23 10:51 EDT Ambulatory Visit Summaryon 0 02-18-2023 Ambulatory Visit Summary DOMINIQUE LLAMAS :1985 Visit Date:02/18/2023 Ambulatory Visit Instructions Your Diagnosis Initial Medicare annual wellness visit Class 1 obesity due to excess calories without serious comorbidity with body mass index (BMI) of 34.0 to 34.9 in adult History of posttraumatic stress disorder (PTSD) Insulin resistance Mild recurrent major depression Smoker Body mass index [BMI] 34.0-34.9, adult Your Care Team Attending Physician - Clint Ortiz DO Primary Care Physician - Clint Ortiz DO This Is Your Medications List Misc Prescription (permanent handicap placard) albuterol (Albuterol (Eqv-ProAir HFA) 90 mcg/inh inhalation aerosol) letrozole (Femara 2.5 mg Tab) levothyroxine (levothyroxine 88 mcg (0.088 mg) Tab) metformin (metformin 500 mg Tab) methylphenidate (methylphenidate 20 mg ER Tab) multivitamin, ( Multivitamins) Procedures Performed Carpal tunnel, delivery only;, Colonoscopy, Dilation and curettage, diagnostic and/or therapeutic (nonobstetrical), Gallbladder operation. Discharge Vitals Heart Rate (Peripheral) 102 Respiratory Rate 16 Blood Pressure 120/80 Height 158 cm Height 62 in Weight 85.9 kg Weight 188.98 lb BMI 34.41 What to do next Scheduled Follow-Up Appointments Thursday 11:00 AM EDT Where: [facility] Ambulatory Visit Summary DOMINIQUE LLAMAS :1985 Visit Date:02/18/2023 Ambulatory Visit Instructions Your Diagnosis Initial Medicare annual wellness visit Class 1 obesity due to excess calories without serious comorbidity with body mass index (BMI) of 34.0 to 34.9 in adult History of posttraumatic stress disorder (PTSD) Insulin resistance Mild recurrent major depression Smoker Body mass index [BMI] 34.0-34.9, adult Your Care Team Attending Physician - Clint Ortiz DO Primary Care Physician - Clint Ortiz DO This Is Your Medications List Misc Prescription (permanent handicap placard) albuterol (Albuterol (Eqv-ProAir HFA) 90 mcg/inh inhalation aerosol) letrozole (Femara 2.5 mg Tab) levothyroxine (levothyroxine 88 mcg (0.088 mg) Tab) metformin (metformin 500 mg Tab) methylphenidate (methylphenidate 20 mg ER Tab) multivitamin, ( Multivitamins) Procedures Performed Carpal tunnel, delivery only;, Colonoscopy, Dilation and curettage, diagnostic and/or therapeutic (nonobstetrical), Gallbladder operation. Discharge Vitals Heart Rate (Peripheral) 102 Respiratory Rate 16 Blood Pressure 120/80 Height 158 cm Height 62 in Weight 85.9 kg Weight 188.98 lb BMI 34.41 What to do next Scheduled Follow-Up Appointments Thursday 11:00 AM EDT [facility] Patient Educationon 02-19-20 23 [facility] Major Depressive Disorder, Adult Major depressive disorder (MDD) is a mental health condition. It may also be called clinical depression or unipolar depression. MDD causes symptoms of sadness, hopelessness, and loss of interest in things. These symptoms last most of the day, almost every day, for 2 weeks. MDD can also cause physical symptoms. It can interfere with relationships and with everyday activities, such as work, school, and activities that are usually pleasant. MDD may be mild, moderate, or severe. It may be single-episode MDD, which happens once, or recurrent MDD, which may occur multiple times. What are the causes? The exact cause of this condition is not known. MDD is most likely caused by a combination of things, which may include: ? Your personality traits. ? Jemison or conditioned behaviors or thoughts or feelings that reinforce negativity. ? Any alcohol or substance misuse. ? Long-term (chronic) physical or mental health illness. ? Going through a traumatic experience or major life changes. What increases the risk? The following factors may make someone more likely to develop MDD: ? A family history of depression. ? Being a woman. ? Troubled family relationships. ? Abnormally low levels of certain brain chemicals. ? Traumatic or painful events in childhood, especially abuse or loss of a parent. ? A lot of stress from life experiences, such as poor living conditions or discrimination. ? Chronic physical illness or other mental health disorders. What are the signs or symptoms? The main symptoms of MDD usually include: ? Constant depressed or irritable mood. ? A loss of interest in things and activities. Other symptoms include: ? Sleeping or eating too much or too little. ? Unexplained weight gain or weight loss. ? Tiredness or low energy. ? Being agitated, restless, or weak. ? Feeling hopeless, worthless, or guilty. ? Trouble thinking clearly or making decisions. ? Thoughts of suicide or thoughts of harming others. ? Isolating oneself or avoiding other people or activities. ? Trouble completing tasks, work, or any normal obligations. Severe symptoms of this condition may include: ? Psychotic depression.This may include false beliefs, or delusions. It may also include seeing, hearing, tasting, smelling, or feeling things that are not real (hallucinations). ? Chronic depression or persistent depressive disorder. This is low-level depression that lasts for at least 2 years. ? Melancholic depression, or feeling extremely sad and hopeless. ? Catatonic depression, which includes trouble speaking and trouble moving. How is this diagnosed? This condition may be diagnosed based on: ? Your symptoms. ? Your medical and mental health history. You may be asked questions about your lifestyle, including any drug and alcohol use. ? A physical exam. ? Blood tests to rule out other conditions. MDD is confirmed if you have the following symptoms most of the day, nearly every day, in a 2-week period: ? Either a depressed mood or loss of interest. ? At least four other MDD symptoms. How is this treated? This condition is usually treated by mental health professionals, such as psychologists, psychiatrists, and clinical social workers. You may need more than one type of treatment. Treatment may include: ? Psychotherapy, also called talk therapy or counseling. Types of psychotherapy include: ? Cognitive behavioral therapy (CBT). This teaches you to recognize unhealthy feelings, thoughts, and behaviors, and replace them with positive thoughts and actions. ? Interpersonal therapy (IPT). This helps you to improve the way you communicate with others or relate to them. ? Family therapy. This treatment includes members of your family. ? Medicines to treat anxiety and depression. These medicines help to balance the brain chemicals that affect your emotions. ? Lifestyle changes. You may be asked to: ? Limit alcohol use and avoid drug use. ? Get regular exercise. ? Get plenty of sleep. ? Make healthy eating choices. ? Spend more time outdoors. ? Brain stimulation. This may be done if symptoms are very severe and other treatments have not worked. Examples of this treatment are electroconvulsive therapy and transcranial magnetic stimulation. Follow these instructions at home: Activity ? Exercise regularly and spend time outdoors. ? Find activities that you enjoy doing, and make time to do them. ? Find healthy ways to manage stress, such as: ? Meditation or deep breathing. ? Spending time in nature. ? Journaling. ? Return to your normal activities as told by your health care provider. Ask your health care provider what activities are safe for you. Alcohol and drug use ? If you drink alcohol: ? Limit how much you use to: ? 0?1 drink a day for women who are not . ? 0?2 drinks a day for men. ? Be aware of how much alcohol is in your drink. In the (more content not included)... Normal [facility] [place] 02-18-2023 Screens [id number]. 00CD:127 Normal [facility] Family Medicine Office/Clini c Noteon 01-08-2023 Family Medicine Office/Clinic Note Chief Complaint F/U ADHD HPI Staff Patient here to F/U ADHD ADHD followup:First few days of taking meds seemed good, but has noticed it has been wearing off soon now Sleeping well: Yes, 6-8 hours Blood pressure:Reviewed, yes Concerns/complaints: None meds dosage Controlled substance: Urine Drug Screen done:_ Medication Agreement updated: Yes History of Present Illness 37 Years old Female here to f/u for ADHD - 1 month follow up Social got keys to their new house last thursday and have slowly been moving ever since youngest went back to [place] - he's turning 16 soon TSH suppressed/ T4 is WNL has been on the same dose of levothyroxine for a long time denies palpitations hasn't scheduled her f/u US of her thyroid Dr Oquendo is following her nodule hypokalemia - i try to drink 64 ounces a day I just try to drink a lot of water ADHD - seems to be doing a little better on this dose for the first week but there's room for improvement Medication List Active Medications Prescribed albuterol: 180 mcg, 2 puff(s), Inhalation, q6hr, 8.5 gm, 11 Refill(s). levothyroxine: 100 mcg, 1 tab(s), Oral, Daily, 90 tab(s), 4 Refill(s). metformin: 500 mg, 1 tab(s), Oral, BID, 180 tab(s), 4 Refill(s). methylphenidate: 10 mg, 1 tab(s), Oral, Daily, 7 tab(s), 0 Refill(s). Documented letrozole: 0 Refill(s). multivitamin, : 1 tab(s), Oral, Daily, 0 Refill(s). LABS Cr/eGFR: eGFR: 97 mL/min/1.73 m2 (12/03/22 10:03:00) Creatinine: 0.8 mg/dL (12/03/22 10:03:00) A1c: No qualifying data available. TSH: TSH: 0.03 mcIU/mL Low (12/03/22 10:03:00) Vit D: No qualifying data available. LDL: LDL Direct: 108 mg/dL (12/03/22 10:03:00) Lipids: Tri mg/dL (12/03/22 10:03:00) HDL: 44 mg/dL (12/03/22 10:03:00) VLDL: 25 mg/dL (12/03/22 10:03:00) Review of Systems PHQ Score Initial Depression Screen Score: 4 ROS 13 point ROS negative except for HPI Physical Exam Vitals & Measurements HR: 89(Peripheral) BP: 120/84 SpO2: 97% HT: 62 in HT: 158 cm WT: 86.3 kg WT: 189.86 lb BMI: 34.57 PHYSICAL EXAM Constitutional: Vital signs reviewed; DOMINIQUE LLAMAS is well nourished, no acute distress - _ Head: Atraumatic, normocephalic Eye: EOMI, normal conjunctiva ENT: Moist oral mucosa, external inspection of ears and nose is unremarkable Neck: Trachea is midline, no tenderness Lungs: Clear to auscultation, non-labored respiration - expansion is symmetric _ Heart: Normal rate and rhythm, normal peripheral perfusion _ Lymph: Deferred Abd: Deferred : Deferred MSK: Normal gait and station Skin: Warm, dry, _ Neurologic: Awake, alert and oriented, speech is _ normal, no focal deficits, CN II-XII grossly intact Psychiatric: Cooperative, appropriate mood and affect _, judgement is appropriate Assessment/Plan 1. ADHD (F90.9: Attention-deficit hyperactivity disorder, unspecified type) Impression: Chronic Improved somewhat Still room for improvement The patient has not established with counseling The patient describes NO side effects Plan: INCREASE to 20mg ER has read Driven to Distraction OARRS reviewed today and demonstrates no concern for prescription disuse Emphasized again that long-term treatment plan includes cognitive behavioral therapy specific for ADHD f/u 1 month 2. Hypothyroidism (E03.9: Hypothyroidism, unspecified) *strongly encourage to schedule US f/u wit ENT to discuss options/ next steps Will decrease levothyroxine from 100mcg to 88mcg labs in 6 weeks f/u 2 months Ordered: levothyroxine, 88 mcg = 1 tab(s), Oral, Daily, # 30 tab(s), Refills(s) 5, Pharmacy: [facility]/pharmacy #[id number], 158, cm, 01/07/23 10:49:00 EDT, Height/Length Dosing, 86.3, kg, 01/07/23 10:49:00 EDT, Weight Dosing Free T4 T3 Total Thyroid Stimulating Hormone 3. 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) on disability for this handicap placard provided today Ordered: [facility] Prescription, permanent handicap placard, See Instructions, 1 EA, 11, for chronic medical condition, Supply, 158, cm, 01/07/23 10:49:00 EDT, Height/Length Dosing, 86.3, kg, 01/07/23 10:49:00 EDT, Weight Dosing Multinodular thyroid (E04.2: Nontoxic multinodular goiter) see #2 Ordered: levothyroxine, 88 mcg = 1 tab(s), Oral, Daily, # 30 tab(s), Refills(s) 5, Pharmacy: [facility]/pharmacy #[id number], 158, cm, 01/07/23 10:49:00 EDT, Height/Length Dosing, 86.3, kg, 01/07/23 10:49:00 EDT, Weight Dosing Free T4 T3 Total Thyroid Stimulating Hormone Orders: methylphenidate, 20 mg = 1 tab(s), Oral, Daily, # 30 tab(s), Refills(s) 0, Pharmacy: [facility]/pharmacy #[id number], 158, cm, 01/07/23 10:49:00 EDT, Height/Length Dosing, 8 (more content not included)... Normal [facility] Comment on above: Result Comment: Elec tronically Signed By: Clint Ortiz DO\Date and Time Signed: 01/08/23 11:06 EDT Family Medicine Office/Clini c Noteon 12-04-2022 Family Medicine Office/Clinic Note Chief Complaint F/U on meds, straterra maybe not working History of Present Illness ADHD Started strattera 40mg After about a month, increased to 80mg she was a little more patient but still struggling with much of the ADHD symptoms thyroid recent US due for labs on 100mcg of levothyroxine sleep consistently getting 5-6 hours of sleep a night inconsistent with feelling rested most days doesn't get home until midnight, gets into bed between 1:30-2am has to get up at 8am the oldest child believes I am the least patient person - he acts like a child he's dillard, has a new boyfriend who wants to visit, but it's causing a riff the youngest child thinks I'm the most patient person in the world Review of Systems PHQ Score Initial Depression Screen Score: 6 13 point ROS negative except for HPI Physical Exam Vitals & Measurements HR: 97(Peripheral) BP: 128/86 SpO2: 96% HT: 62 in HT: 158.3 cm WT: 87.3 kg WT: 192.06 lb BMI: 34.84 Constitutional: Vital signs reviewed; Dominique is well nourished, no acute distress Lungs: Clear to auscultation, non-labored respiration - expansion is symmetric Heart: Normal rate and rhythm, normal peripheral perfusion Lymph: Deferred Abd: Deferred : Deferred MSK: Normal gait and station Skin: Warm, dry, Neurologic: Awake, alert and oriented, speech is normal, no focal deficits, CN II-XII grossly intact Psychiatric: Cooperative, appropriate mood and affect, judgement is appropriate Assessment/Plan 1. ADHD (F90.9: Attention-deficit hyperactivity disorder, unspecified type) Impression: Chronic Sub-optimally controlled ADHD The patient is impulsive as demonstrated by behavior during the appointment today; this has improved somewhat The patient did discuss a multitude of subjects within short period of time; this has also improved On near maximal dose of straterra The patient describes no side effects Plan: I have discussed the rationale for the treatment of ADHD in the past The patient has picked up the book Driven to Distraction OARRS reviewed today and demonstrates NO concern for prescription disuse Long-term plan includes cognitive behavioral therapy - we have discussed the importance of actively working on behavior modifications I recommend that the patient acquire and read the book Driven to Distraction to learn about ADHD and the behaviors related and how to maximize effectiveness personally, professionally and socially Stop Strattera Rx methylphenidate 10mg ER for the next 30 days Discussed the rationale of increasing to 20mg after the first month Discussed reasonable expectations for med management of symptoms Long discussion re: her older son who may have ADHD - recommend Dr. Baig's parenting book f/u 1 months Ordered: methylphenidate, 10 mg = 1 tab(s), Oral, Daily, # 30 tab(s), Refills(s) 0, Pharmacy: [facility]/pharmacy #[id number], 158.3, cm, 12/03/22 11:34:00 EDT, Height/Length Dosing, 87.3, kg, 12/03/22 11:34:00 EDT, Weight Dosing 2. Anxiety (F41.9: Anxiety disorder, unspecified) Chronic Stable Somewhat improved with straterra Generally adequate coping strategies Will optimize #1 and re-evaluate Adult BMI 34.0-34.9 kg/sq m (Z68.34: Body mass index [BMI] 34.0-34.9, adult) recommend weight loss Orders: Comprehensive Metabolic Panel eGFR Free T4 Lipid Panel TSH With T4fr Reflex Total time spent TODAY preparing the chart, face to face with the patient and family and time spent documenting, reviewing, and ordering tests was MORE than 30 mins Follow-up No qualifying data available Problem List/Past Medical History Ongoing ADHD Anxiety Asthma Fibromyalgia History of migraine History of posttraumatic stress disorder (PTSD) Hypothyroidism Insulin resistance Mild recurrent major depression PCOS (polycystic ovarian syndrome) Smoker Thyroid nodule Historical No qualifying data Procedure/Surgical History Carpal tunnel, delivery only;, Colonoscopy, Dilation and curettage, diagnostic and/or therapeutic (nonobstetrical), Gallbladder operation. Medications Albuterol (Eqv-ProAir HFA) 90 mcg/inh inhalation aerosol, 180 mcg= 2 puff(s), Inhalation, q6hr, 11 refills Femara 2.5 mg Tab, Not taking levothyroxine 100 mcg (0.1 mg) Tab, 100 mcg= 1 tab(s), Oral, Daily, 4 refills metformin 500 mg Tab, 500 mg= 1 tab(s), Oral, BID, 4 refills methylphenidate 10 mg oral tablet, extended release, 10 mg= 1 tab(s), Oral, Daily Multivitamins, 1 tab(s), Oral, Daily Allergies Geodon (Anaphylaxis) Social History Tobacco Never, Current vaping or e-cigarette use Smokeless Tobacco Use:. Vaping, Ready to change: No., 12/03/2022 Family History Depression: Sister. Hypertension: Mother, Father and Sister. Hypothyroidism: Grandparent. Primary malignant neoplasm of female breast: Grandparent. Primary malignant neoplasm of rectum: Mother. Primary malignant neoplasm of skin: Grandpar (more content not included)... Normal [facility] Comment on above: Result Comment: Elec tronically Signed By: Clint Ortiz DO\.br\Date and Time Signed: 12/04/22 12:53 EDT Advance Beneficiary Notifica tionson 12-03-2022 Advance Beneficiary Notifications [id number]:127 Normal [facility] Ambulatory Visit Summaryon 0 12-03-2022 Ambulatory Visit Summary DOMINIQUE LLAMAS :1985 Visit Date:12/03/2022 Ambulatory Visit Instructions Your Diagnosis ADHD Anxiety Adult BMI 34.0-34.9 kg/sq m Your Care Team Attending Physician - Clint Ortiz DO Primary Care Physician - Clint Ortiz DO This Is Your Medications List methylphenidate (methylphenidate 10 mg oral tablet, extended release) Contact prescribing physician if questions or concerns albuterol (Albuterol (Eqv-ProAir HFA) 90 mcg/inh inhalation aerosol) letrozole (Femara 2.5 mg Tab) levothyroxine (levothyroxine 100 mcg (0.1 mg) Tab) metformin (metformin 500 mg Tab) multivitamin, ( Multivitamins) [Image Removed: STOP]Stop taking these medications atomoxetine (Strattera 40 mg Cap) Procedures Performed Carpal tunnel, delivery only;, Colonoscopy, Dilation and curettage, diagnostic and/or therapeutic (nonobstetrical), Gallbladder operation. Discharge Vitals Heart Rate (Peripheral) 97 Blood Pressure 128/86 Height 158.3 cm Height 62 in Weight 87.3 kg Weight 192.06 lb BMI 34.84 Medications What How Much When Why Instructions New methylphenidate (methylphenidate 10 mg oral tablet, extended release) 1 Tablets By Mouth Every day ADHD Pickup at [facility]/pharmacy #[id number] Unchanged albuterol (Albuterol (Eqv-ProAir HFA) 90 mcg/ inh inhalation aerosol) 2 Puffs Inhalation Every 6 hours Contact prescribing physician if questions or concerns Unchanged letrozole (Femara 2.5 mg Tab) Contact prescribing physician if questions or concerns Unchanged levothyroxine (levothyroxine 100 mcg (0.1 mg) Tab) 1 Tablets By Mouth Every day Contact prescribing physician if questions or concerns Unchanged metformin (metformin 500 mg Tab) 1 Tablets By Mouth 2 times a day Contact prescribing physician if questions or concerns Unchanged multivitamin, ( Multivitamins) 1 Tablets By Mouth Every day Contact prescribing physician if questions or concerns Pharmacy Information [facility]/pharmacy #[id number]: [address], [place] [id number] [phone] What How Much When Why Comments Stop Taking atomoxetine (Strattera 40 mg Cap) 1 Capsules By Mouth Once a day (in the morning) ADHD Allergies Geodon (Anaphylaxis) Problems Ongoing - Any problem that you are currently receiving treatment for. ADHD Anxiety Asthma Fibromyalgia History of migraine History of posttraumatic stress disorder (PTSD) Hypothyroidism Insulin resistance Mild recurrent major depression PCOS (polycystic ovarian syndrome) Smoker Thyroid nodule Normal [facility] CHEMISTRYOrdered By: SYSTEM SYSTEM on 12-03-2022 Albumin [Mass/Vol] 4.4 g/dL Normal 3.3 - 5.0 gm/dL [facility] Remisol Albumin/Globulin [Mass ratio] 1.5 {ratio} Normal 1.1 - 2.2 [facility] ALP [Catalytic activity/Vol] 48 [iU]/d Normal 21 - 98 Int._Unit/L [facility] ALT No additional P-5'-P [Catalytic activity/Vol] 28 [iU]/d Normal 6 - 46 Int._Unit/L [facility] Anion gap [Moles/Vol] 9 mmol/L Normal 6 - 16 mEq/L [facility] AST [Catalytic activity/Vol] 20 [iU]/d Normal 5 - 43 Int._Unit/L [facility] Bilirubin [Mass/Vol] 0.8 mg/dL Normal 0.0 - 1.1 mg/dL [facility] Calcium [Mass/Vol] 9.1 mg/dL Normal 8.9 - 11.1 mg/dL [facility] Chloride [Moles/Vol] 108 mmol/L Normal 101 - 111 mmol/L [facility] Cholesterol [Mass/Vol] 170 mg/dL Normal 120 - 200 mg/dL [facility] Cholesterol in HDL [Mass/Vol] 44 mg/dL Invalid Interpretation Code [facility] Cholesterol in LDL [Mass/Vol] 108 mg/dL Normal <=129mg/dL [facility] Cholesterol in VLDL [Mass/Vol] 25 mg/dL Normal 7 - 40 mg/dL [facility] CO2 [Moles/Vol] 24 mmol/L Normal 21 - 31 mmol/L [facility] Creatinine [Mass/Vol] 0.8 mg/dL Normal 0.5 - 1.3 mg/dL [facility] Free T4 [Mass/Vol] 1.43 ng/dL Normal 0.58 - 1. 64 ng/dL [facility] GFR/1.73 sq M.predicted among non-blacks MDRD (S/P/Bld) [Vol rate/Area] 97 mL/min/1.73 m2 Normal >=59mL/min/1.73 m2 [facility] S Globulin (S) [Mass/Vol] 2.9 g/dL Normal 1.4 - 4.0 gm/dL [facility] Glucose [Mass/Vol] 91 mg/dL Normal 55 - 199 mg/dL [facility] Potassium [Moles/Vol] 3.4 mmol/L Low 3.5 - 5.3 mmol/L [facility] Protein [Mass/Vol] 7.3 g/dL Normal 6.0 - 7.8 gm/dL [facility] Sodium [Moles/Vol] 138 mmol/L Normal 135 - 145 mmol/L [facility] Triglyceride [Mass/Vol] 127 mg/dL Normal <=149mg/dL [facility] TSH Qn 0.03 m[IU]/L Low 0.34 - 5.60 mcIU/mL [facility] Urea nitrogen [Mass/Vol] 7 mg/dL Normal 5 - 21 mg/dL [facility] Urea nitrogen/Creatinine [Mass ratio] 9 mg/mg Low 10 - 20 [facility] Remisol CMPon 12-03-2022 Albumin [Mass/Vol] 4.4 g/dL Normal 3.3-5.0 [facility] Comment on above: Performed By: #### 2 [id number], [id number], [id number], 9638232, [id number] #### [facility] [address] [place] [address] Albumin/Globulin (S) [Mass conc ratio] 1.5 Normal 1.1-2.2 [facility] Comment on above: Performed By: #### 2 422279, 7262251, 81807680, 5427245, [id number] #### [facility] [address] [place] [address] ALP [Catalytic activity/Vol] 48 Int._Unit/L Normal 21-98 [facility] Comment on above: Performed By: #### 2 635903, 8761490, 49138750, 3084706, [id number] #### [facility] [address] [place] [address] ALT No additional P-5'-P [Catalytic activity/Vol] 28 Int._Unit/L Normal 6-46 [facility] Comment on above: Performed By: #### 2 331680, 1252530, [id number], 2672765, 19364079 #### [facility] [address] [place] [address] Anion gap [Moles/Vol] 9 mmol/L Normal 6-16 [facility] Comment on above: Performed By: #### 2 493375, 1837430, 06779125, 7162876, [id number] #### [facility] [address] [place] [address] AST [Catalytic activity/Vol] 20 Int._Unit/L Normal 5-43 [facility] Comment on above: Performed By: #### 2 472525, 5379189, 11801428, 0430469, 15695299 #### [facility] [address] [place] [address] Bilirubin [Mass/Vol] 0.8 mg/dL Normal 0.0-1.1 [facility] Comment on above: Performed By: #### 2 158069, 6185771, 84535883, 3851247, 24931973 #### [facility] [address] [place] [address] Calcium [Mass/Vol] 9.1 mg/dL Normal 8.9-11.1 [facility] Comment on above: Performed By: #### 2 226113, 4388554, 04202537, 1194040, 95106019 #### [facility] [address] [place] [address] Chloride [Moles/Vol] 108 mmol/L Normal 101-111 [facility] Comment on above: Performed By: #### 2 570519, 4958775, 35502865, 3541421, 57051716 #### [facility] [address] [place] [address] CO2 [Moles/Vol] 24 mmol/L Normal 21-31 [facility] Comment on above: Performed By: #### 2 122240, 4735477, 51322568, 2387548, 11332458 #### [facility] [address] [place] [address] Creatinine [Mass/Vol] 0.8 mg/dL Normal 0.5-1.3 [facility] Comment on above: Performed By: #### 2 218416, 7359958, 46227968, 5159152, 88977747 #### [facility] [address] [place] [address] Globulin (S) [Mass/Vol] 2.9 g/dL Normal 1.4-4.0 [facility] Comment on above: Performed By: #### 2 637330, 6380383, 20073011, 5376730, 62072383 #### [facility] [address] [place] [address] Glucose [Mass/Vol] 91 mg/dL Normal 55-199 [facility] Comment on above: Result Comment: If t his glucose result represents a fasting glucose, interpretation should refer to the following reference range: 55-99 mg/dL Performed By: #### 2 294639, 6641811, 41553759, 4942008, 39721611 #### [facility] [address] [place] [address] Potassium [Moles/Vol] 3.4 mmol/L Low 3.5-5.3 [facility] Comment on above: Performed By: #### 2 507667, 6518983, 57957448, 1679726, 76737364 #### [facility] [address] [place] [address] Protein [Mass/Vol] 7.3 g/dL Normal 6.0-7.8 [facility] Comment on above: Performed By: #### 2 918917, 9348828, 61766069, 9809433, 29844483 #### [facility] [address] [place] [address] Sodium [Moles/Vol] 138 mmol/L Normal 135-145 [facility] Comment on above: Performed By: #### 2 778013, 6637337, 40784410, 4604009, 13067851 #### [facility] [address] [place] [address] Urea nitrogen [Mass/Vol] 7 mg/dL Normal 5-21 [facility] Comment on above: Performed By: #### 2 585057, 6831869, 68838598, 6666361, 26373030 #### [facility] [address] [place] [address] Urea nitrogen/Creatinine [Mass ratio] 9 No Units Low 10-20 [facility] Comment on above: Performed By: #### 2 829297, 8918796, 57487391, 7913183, 47064642 #### [facility] [address] [place] [address] Consent for Treatmenton 06 Consent for Treatment [id number] .[id number]:127 Normal [facility] Free T4on 12-03-2022 Free T4 [Mass/Vol] 1.43 ng/dL Normal 0.58-1.64 [facility] Comment on above: Order Comment: Order added by Discern Expert. Performed By: #### 1 [id number], 1525724, 1763994, 57831520, 8988783, 1102469 #### [facility] [address] [place] [address] Lipid Panelon 12-03-2022 Cholesterol [Mass/Vol] 170 mg/dL Normal 120-200 [facility] Comment on above: Performed By: #### 2 [id number], [id number], [id number], [id number], [id number] #### [facility] [address] [place] [address] Cholesterol in HDL [Mass/Vol] 44 mg/dL Invalid Interpretation Code [facility] Comment on above: Result Comment: HDL > or equal to 60 mg/dL: Low cardiovascular risk HDL < 40 mg/dL : High cardiovascular risk Performed By: #### 2 [id number], [id number], [id number], [id number], [id number] #### [facility] [address] [place] [address] Cholesterol in LDL [Mass/Vol] 108 mg/dL Normal <=129 [facility] Comment on above: Performed By: #### 2 [id number], [id number], [id number], [id number], [id number] #### [facility] [address] [place] [address] Cholesterol in VLDL [Mass/Vol] 25 mg/dL Normal 7-40 [facility] Comment on above: Performed By: #### 2 155463, [id number], [id number], [id number], [id number] #### [facility] [address] [place] [address] Triglyceride [Mass/Vol] 127 mg/dL Normal <=149 [facility] Comment on above: Performed By: #### 2 [id number], [id number], [id number], [id number], [id number] #### [facility] [address] [place] [address] TSH With T4fr Reflexon 12-03 TSH Qn 0.03 m[IU]/L Low 0.34-5.60 [facility] Comment on above: Performed By: #### 2 980221, [id number], [id number], [id number], [id number] #### [facility] [address] [place] [address] eGFRon 12-03-2022 GFR/1.73 sq M.predicted among non-blacks MDRD (S/P/Bld) [Vol rate/Area] 97 mL/min/1.73 m2 Normal >=59 [facility] Comment on above: Order Comment: Order added by Discern Expert. Result Comment: Campaign Coordinator erica kidney disease could be indicated at eGFR's of less than 60 mL/min/1.73m2. Kidney failure is indicated at less than 15 mL/min/1.73m2. Performed By: #### 2 [id number], [id number], [id number], [id number], [id number] #### [facility] [address] [place] [address] Consultation Noteon 11-22-19 Consultation Note [id number] .00CD:127 Normal [facility] Pulmonary Function Studieson 10-29-2022 Pulmonary Function Studies METHACHOLINE CHALLENGE TEST: 10/27/2022 REQUESTING PHYSICIAN: Clint Ortiz D.O. REASON FOR TESTING: Asthma. Methacholine challenge test was performed while the patient was inhaling increasing doses of methacholine. At a level 4 of methacholine, there was significant decrease in the FEV1 of 22% from baseline. This reversed with administration of bronchodilator therapy. IMPRESSION: Methacholine challenge test is positive at intermediate concentrations. READ BY: Meliza Vogel M.D. Dictated: 10/28/2022 [id number] Transcribed: 10/28/2022 cc:Clint Ortiz D.O. Normal [facility] Comment on above: Result Comment: Elec tronically Signed By: Jaspreet JOSEPH, Meliza Macdonald.\.br\Date and Time Signed: 10/29/22 09:32 EDT Consent for Treatmenton 10-13 Consent for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 above: Performed By: #### P DAWNA #### [facility] [address] [place] [address] Dr. Cecy Hernandez MCV (RBC) [Entitic vol] 84.2 fL Normal 81.0-99.0 [facility] Comment on above: Performed By: #### P DAWNA #### [facility] [address] [place] [address] Dr. Cecy Hernandez MONO # 0.5 103/ul Normal 0.3-0.8 [facility] Comment on above: Performed By: #### P DAWNA #### [facility] [address] [place] [address] Dr. Cecy Hernandez Monocytes/100 WBC (Bld) 5.9 % Normal 1.7-12.0 [facility] Comment on above: Performed By: #### P DAWNA #### [facility] [address] [place] [address] Dr. Cecy Hernandez NEUT # 4.2 103/ul Normal 1.4-6.5 [facility] Comment on above: Performed By: #### P DAWNA #### [facility] [address] [place] [address] Dr. Cecy Hernandez Neutrophils/100 WBC (Bld) 48.7 % Normal 43.0-75.0 [facility] Comment on above: Performed By: #### P DAWNA #### [facility] [address] [place] [address] Dr. Cecy Hernandez Platelet mean volume (Bld) [Entitic vol] 10.0 fL Normal 9.5-13.5 [facility] Comment on above: Performed By: #### P DAWNA #### [facility] [address] [place] [address] Dr. Cecy Hernandez PLT 283 103/ul Normal 150-450 [facility] Comment on above: Performed By: #### P DAWNA #### [facility] [address] [place] [address] Dr. Cecy Hernandez RBC 4.86 106/ul Normal 4.20-5.40 [facility] Comment on above: Performed By: #### P DAWNA #### [facility] [address] [place] [address] Dr. Cecy Hernandez WBC 8.6 103/ul Normal 4.0-11.0 [facility] Comment on above: Performed By: #### P DAWNA #### [facility] [address] [place] [address] Dr. Cecy Hernandez ER URINE PROFILEon 3 Bilirubin Ql (U) Negative Normal NEGATIVE [facility] Comment on above: Performed By: #### P DAWNA #### [facility] [address] [place] [address] Dr. Cecy Hernandez Clarity (U) CLEAR Normal CLEAR [facility] Comment on above: Performed By: #### P ROGES #### [facility] [address] [place] [address] Dr. Cecy Hernandez Color (U) LT. YELLOW Normal YELLOW [facility] Comment on above: Performed By: #### P SHERIES #### [facility] [address] [place] [address] Dr. Cecy Hernandez ERUAHD A micrscopic examination will be performed if indicated. Normal [facility] Comment on above: Performed By: #### P SHERIES #### [facility] [address] [place] [address] Dr. Cecy Hernandez Glucose Ql (U) Negative Normal NEGATIVE [facility] Comment on above: Performed By: #### P DAWNA #### [facility] [address] [place] [address] Dr. Cecy Hernandez Hemoglobin Ql (U) TRACE-INTACT Abnormal NEGATIVE [facility] Comment on above: Performed By: #### P DAWNA #### [facility] [address] [place] [address] Dr. Cecy Hernandez Ketones Ql (U) Negative Normal NEGATIVE [facility] Comment on above: Performed By: #### P DAWNA #### [facility] [address] [place] [address] Dr. Cecy Hernandez LEUKOCYTES Negative Normal NEGATIVE [facility] Comment on above: Performed By: #### P DAWNA #### [facility] [address] [place] [address] Dr. Cecy Hernandez Nitrite Ql (U) Negative Normal NEGATIVE [facility] Comment on above: Performed By: #### P ROGES #### [facility] [address] [place] [address] Dr. Cecy Hernandez pH (U) 7.0 [pH] Normal 5-9 [facility] Comment on above: Performed By: #### P DAWNA #### [facility] [address] [place] [address] Dr. Cecy Hernandez SPEC GRAVITY 1.010 Normal 1.005-<=1.025 [facility] Comment on above: Performed By: #### P DAWNA #### [facility] [address] [address] [address] Cecy Hernandez UA PROTEIN Negative Normal NEGATIVE/ TRACE [facility] Comment on above: Performed By: #### P DAWNA #### [facility] [address] [address] [address] Cecy Hernandez UR MICRO IND INDICATED Normal [facility] Comment on above: Performed By: #### P DAWNA #### [facility] [address] [place] [address] Dr. Cecy Hernandez Urobilinogen Qn (U) 0.2 {Jone'U}/dL Normal 0.2 - 1. 0 [facility] Comment on above: Performed By: #### P DAWNA #### [facility] [address] [place] [address] Dr. Cecy Hernandez PREG HCG QUALon 06-27-2022 , QUAL Negative Normal NEGATIVE [facility] Comment on above: Performed By: #### P REG #### [facility] [address] [place] [address] Dr. Cecy Hernandez PROF CHEM 8 (BAS METB)on Anion gap [Moles/Vol] 12.9 mmol/L Normal [facility] Comment on above: Performed By: #### B MP #### [facility] [address] [place] [address] Dr. Cecy Hernandez Calcium [Mass/Vol] 9.0 mg/dL Normal 8.5-10.1 [facility] Comment on above: Performed By: #### B MP #### [facility] [address] [place] [address] Dr. Cecy Hernandez Chloride [Moles/Vol] 101 mmol/L Normal 98-107 [facility] Comment on above: Performed By: #### B MP #### [facility] [address] [place] [address] Dr. Cecy Hernandez CO2 [Moles/Vol] 26.7 mmol/L Normal 21.0-32.0 [facility] Comment on above: Performed By: #### B MP #### [facility] [address] [address] [address] Cecy Hernandez Creatinine [Mass/Vol] 0.91 mg/dL Normal 0.55-1.02 [facility] Comment on above: Performed By: #### B MP #### [facility] [address] [address] [address] Cecy Hernandez EGFR-AF GERMAN >60 Normal >=60 [facility] Comment on above: Performed By: #### B MP #### [facility] [address] [address] [address] Cecy Hernandez EGFR-NON AF GERMAN >60 Normal >=60 [facility] Comment on above: Performed By: #### B MP #### [facility] [address] [address] [address] Cecy Hernandez Glucose [Mass/Vol] 86 mg/dL Normal 74-106 [facility] Comment on above: Performed By: #### B MP #### [facility] [address] [address] [address] Cecy Hernandez Potassium [Moles/Vol] 3.6 mmol/L Normal 3.5-5.1 [facility] Comment on above: Performed By: #### B MP #### [facility] [address] [place] [address] Dr. Cecy Hernandez Sodium [Moles/Vol] 137 mmol/L Normal 136-145 [facility] Comment on above: Performed By: #### B MP #### [facility] [address] [address] [address] Cecy Hernandez Urea nitrogen [Mass/Vol] 14.0 mg/dL Normal 7.0-18.0 [facility] Comment on above: Performed By: #### B MP #### [facility] [address] [address] [address] Cecy Hernandez Urea nitrogen/Creatinine [Mass ratio] 15.4 mg/mg Normal [facility] Comment on above: Performed By: #### B MP #### [facility] [address] [address] [address] Cecy Hernandez URINE MICROSCOPIC ONLYon BACTERIA NONE SEEN Normal NONE SEEN [facility] Comment on above: Performed By: #### P ROGES #### [facility] [address] [place] [address] Dr. Cecy Hernandez Bacteria identified Cx Nom (U) NOT INDICATED Normal [facility] Comment on above: Performed By: #### P ROGES #### [facility] [address] [place] [address] Dr. Cecy Hernandez CAST NONE SEEN Normal NONE SEEN [facility] Comment on above: Performed By: #### P ROGES #### [facility] [address] [place] [address] Dr. Cecy Hernandez Crystals LM Nom (Urine sed) NONE SEEN Normal NONE SEEN [facility] Comment on above: Performed By: #### P ROGES #### [facility] [address] [place] [address] Dr. Cecy Hernandez Epithelial cells LM Ql (Urine sed) FEW Abnormal NONE SEEN /RARE [facility] Comment on above: Performed By: #### P ROGES #### [facility] [address] [place] [address] Dr. Cecy Hernandez MUCOUS NONE SEEN Normal NONE SEEN [facility] Comment on above: Performed By: #### P ROGES #### [facility] [address] [place] [address] Dr. Cecy Hernandez RBC 0-2 Normal 0-2 [facility] Comment on above: Performed By: #### P ROGES #### [facility] [address] [place] [address] Dr. Cecy Hernandez WBC 2-5 Abnormal NONE SEEN [facility] Comment on above: Performed By: #### P ROGES #### [facility] [address] [place] [address] Dr. Cecy Hernandez US PELVIS TRANSVAGon 023 US PELVIS TRANSVAG EXAM: US PELVIS TRANSVAG HISTORY: Pain in pelvis COMPARISON: None available. TECHNIQUE: Real time pelvic ultrasound examination was performed using Duplex Doppler by transvaginal approach. Transvaginal approach was medically necessary for optimal imaging. FINDINGS: UTERUS: Uterus measures 8.9 x 4.3 x 5.4 cm. No focal myometrial lesions are seen. ENDOMETRIUM: The endometrium is within normal limits. Endometrial stripe measures up to 3 mm in thickness. RIGHT OVARY: The right ovary is normal in size. Right ovary measures 3.1 x 3.2 x 2.1 cm. Arterial and venous blood flow is seen. No suspicious solid or cystic lesions. LEFT OVARY: The left ovary is normal in size. Left ovary measures 4.1 x 2.5 x 2.4 cm. Arterial and venous blood flow is seen. No suspicious solid or cystic lesions. There is no significant pelvic free fluid. IMPRESSION: Unremarkable sonographic appearance of the pelvis. Electronically authenticated by: KEYANNA SHARPE Date: 2022-06-27 19:44 Normal [facility] FREE T3on 05-19-2022 FREE T3 2.17 pg/mlL Critically low 2.18-3.98 [facility] Comment on above: Performed By: #### B MP, TSH, FT3 #### [facility] [address] [address] [address] Cecy Hernandez PROF CHEM 8 (BAS METB)on Anion gap [Moles/Vol] 11.5 mmol/L Normal [facility] Comment on above: Performed By: #### B MP, TSH, FT3 #### [facility] [address] [address] [address] Cecy Hernandez Calcium [Mass/Vol] 8.7 mg/dL Normal 8.5-10.1 [facility] Comment on above: Performed By: #### B MP, TSH, FT3 #### [facility] [address] [address] [address] Cecy Hernandez Chloride [Moles/Vol] 102 mmol/L Normal 98-107 [facility] Comment on above: Performed By: #### B MP, TSH, FT3 #### [facility] [address] [place] [address] Dr. Cecy Hernandez CO2 [Moles/Vol] 26.3 mmol/L Normal 21.0-32.0 [facility] Comment on above: Performed By: #### B MP, TSH, FT3 #### [facility] [address] [address] [address] Cecy Hernandez Creatinine [Mass/Vol] 0.82 mg/dL Normal 0.55-1.02 [facility] Comment on above: Performed By: #### B MP, TSH, FT3 #### [facility] [address] [address] [address] Cecy Hernandez EGFR-AF GERMAN >60 Normal >=60 [facility] Comment on above: Performed By: #### B MP, TSH, FT3 #### [facility] [address] [address] [address] Cecy Hernandez EGFR-NON AF GERMAN >60 Normal >=60 [facility] Comment on above: Performed By: #### B MP, TSH, FT3 #### [facility] [address] [address] [address] Cecy Hernandez Glucose [Mass/Vol] 106 mg/dL Normal 74-106 [facility] Comment on above: Performed By: #### B MP, TSH, FT3 #### [facility] [address] [address] [address] Cecy Hernandez Potassium [Moles/Vol] 3.8 mmol/L Normal 3.5-5.1 [facility] Comment on above: Performed By: #### B MP, TSH, FT3 #### [facility] [address] [address] [address] Cecy Hernandez Sodium [Moles/Vol] 136 mmol/L Normal 136-145 [facility] Comment on above: Performed By: #### B MP, TSH, FT3 #### [facility] [address] [address] [address] Cecy Hernandez Urea nitrogen [Mass/Vol] 8.0 mg/dL Normal 7.0-18.0 [facility] Comment on above: Performed By: #### B MP, TSH, FT3 #### [facility] [address] [address] [address] Cecy Hernandez Urea nitrogen/Creatinine [Mass ratio] 9.8 mg/mg Normal [facility] Comment on above: Performed By: #### B MP, TSH, FT3 #### [facility] [address] [address] [address] Cecy Hernandez TSHon 05-19-2022 TSH 0.415 uIU/mL Normal 0.358-3.740 [facility] Comment on above: Performed By: #### B MP, TSH, FT3 #### [facility] [address] [place] [address] Dr. Cecy Hernandez PROGESTERONEon 05-13-2022 Progesterone 15.9 ng/mL Normal [facility] Comment on above: Result Comment: Foll icular phase 0.1 - 0.9 Luteal phase 1.8 - 23.9 Ovulation phase 0.1 - 12.0 First trimester 11.0 - 44.3 Second trimester 25.4 - 83.3 Third trimester 58.7 - 214.0 Postmenopausal 0.0 - 0.1 Performed By: #### P ROGES #### [facility] [address] [place] [address] Dr. Cecy Hernandez PROGESTERONEon 04-12-2022 Progesterone 9.8 ng/mL Normal [facility] Comment on above: Result Comment: Foll icular phase 0.1 - 0.9 Luteal phase 1.8 - 23.9 Ovulation phase 0.1 - 12.0 First trimester 11.0 - 44.3 Second trimester 25.4 - 83.3 Third trimester 58.7 - 214.0 Postmenopausal 0.0 - 0.1 Performed By: #### P ROGES #### [facility] [address] [place] [address] Dr. Cecy Hernandez PROGESTERONEon 03-12-2022 Progesterone 13.8 ng/mL Normal [facility] Comment on above: Result Comment: Foll icular phase 0.1 - 0.9 Luteal phase 1.8 - 23.9 Ovulation phase 0.1 - 12.0 First trimester 11.0 - 44.3 Second trimester 25.4 - 83.3 Third trimester 58.7 - 214.0 Postmenopausal 0.0 - 0.1 Performed By: #### P ROGES #### [facility] [address] [place] [address] Dr. Cecy Hernandez PROGESTERONEon 02-12-2022 Progesterone 12.7 ng/mL Normal [facility] Comment on above: Result Comment: Foll icular phase 0.1 - 0.9 Luteal phase 1.8 - 23.9 Ovulation phase 0.1 - 12.0 First trimester 11.0 - 44.3 Second trimester 25.4 - 83.3 Third trimester 58.7 - 214.0 Postmenopausal 0.0 - 0.1 Performed By: #### P DAWNA #### [facility] [address] [address] [address] Cecy Hernandez PROGESTERONEon 01-11-2022 Progesterone 19.2 ng/mL Normal [facility] Comment on above: Result Comment: Foll icular phase 0.1 - 0.9 Luteal phase 1.8 - 23.9 Ovulation phase 0.1 - 12.0 First trimester 11.0 - 44.3 Second trimester 25.4 - 83.3 Third trimester 58.7 - 214.0 Postmenopausal 0.0 - 0.1 Performed By: #### P DAWNA #### [facility] [address] [place] [address] Dr. Cecy Hernandez COVID Quick Testingon 2021 Result Positive [employer] Other Quick Fluon 11-15-2021 FLUAV Ab CF (S) [Titer] Negative [employer] Other FLUBV Ab CF (S) [Titer] Negative [employer] [facility] [employer] Other FREE T3on 11-14-2021 FREE T3 2.17 pg/mlL Critically low 2.18-3.98 [facility] Comment on above: Performed By: #### P DAWNA #### [facility] [address] [address] [address] Cecy Hernandez TSHon 11-14-2021 TSH 0.265 uIU/mL Critically low 0.358-3.740 [facility] Comment on above: Performed By: #### P DAWNA #### [facility] [address] [address] [address] Cecy Hernandez TSH RANGE SEE BELOW Normal [facility] Comment on above: Result Comment: <0.3 4 UIU/ml HYPERTHYROID 0.34-5.60 UIU/ml EUTHYROID >5.60 UIU/ml HYPOTHYROID Performed By: #### P DAWNA #### [facility] [address] [address] [address] Cecy Hernandez PROGESTERONEon 10-26-2021 Progesterone 0.1 ng/mL Normal [facility] Comment on above: Result Comment: Foll icular phase 0.1 - 0.9 Luteal phase 1.8 - 23.9 Ovulation phase 0.1 - 12.0 First trimester 11.0 - 44.3 Second trimester 25.4 - 83.3 Third trimester 58.7 - 214.0 Postmenopausal 0.0 - 0.1 Performed By: #### P DAWNA #### [facility] [address] [place] [address] Dr. Cecy Hernandez XR shoulder LT min 2V*on XR shoulder LT min 2V* [facility] [place] [address] XRay Report Signed Patient: Dominique Crenshaw MR#: [id number] 4 : 1985 Acct:[id number] Age/Sex: 36 / F ADM Date: 08/15/21 Loc: [facility] Room: Type: [facility] Attending Dr: Petros Lion MD Ordering Provider: Petros Lion MD Date of Service: 08/15/21 XR/XR shoulder LT min 2V*: Pain in right shoulder;Pain in left shoulder Copies to: Petros Lion MD 4 views plain filmLEFT shoulder HISTORY:LEFT shoulder pain for years. COMPARISON:None No fracture, dislocation or focal soft tissue abnormality seen. No significant degeneration seen. XR/XR shoulder LT min 2V* IMPRESSION:No acute findings. Impression dictated by: Ana Nelson M.D.08/15/2021 1:32 PM Dictation Location: [place] [address] Transcribed By: [facility] 08/15/21 133 Dictated By: Ana Nelson DO 08/15/21 1331 Signed By: 08/15/[address] [facility] Vital Signs Date Time Vital Sign Value Performing Clinician Facility 06-25-2023 15:02-0500 [facility] 06-25-2023 15:02-0500 Diastolic blood pressure 90 mm[Hg[facility] 06-25-2023 15:02-0500 Heart rate 106 /min [facility] 06-25-2023 15:02-0500 SaO2% (BldA) [Mass fraction] 99 % [facility] 06-25-2023 15:02-0500 Systolic blood pressure 120 mm[Hg] [facility] 06-07-2023 09:20-0500 Blood Pressure Location [facility] 06-07-2023 09:20-0500 Body temperature 97.88 [degF] [facility] 06-07-2023 09:20-0500 Diastolic blood pressure 79 mm[Hg] [facility] 06-07-2023 09:20-0500 Heart rate 89 /min [facility] 06-07-2023 09:20-0500 SaO2% (BldA) [Mass fraction] 99 % [facility] 06-07-2023 09:20-0500 Systolic blood pressure 119 mm[Hg] [facility] [facility] 04-21-2023 08:02-0500 Blood Pressure Location [facility] 04-21-2023 08:02-0500 Diastolic blood pressure 80 mm[Hg] [facility] 04-21-2023 08:02-0500 Heart rate 73 /min [facility]21[facility] 08:02-0500 SaO2% (BldA) [Mass fraction] 98 % [facility] 04-21-2023 08:02-0500 Systolic blood pressure 114 mm[Hg] [facility] 02-18-2023 09:29-0400 Blood Pressure Location [facility] 02-18-2023 09:29-0400 Diastolic blood pressure 80 mm[Hg] [facility] 02-18-2023 09:29-0400 Heart rate 102 /min [facility] 02-18-2023 09:29-0400 Respiratory rate 16 /min [facility] 09:29-0400 SaO2% (BldA) [Mass fraction] 98 % [facility] 02-18-2023 09:29-0400 Systolic blood pressure 120 mm[Hg] [facility] 01-07-2023 10:44-0400 Blood Pressure Location [facility] 01-07-2023 10:44-0400 Diastolic blood pressure 84 mm[Hg] [facility] 01-07-2023 10:44-0400 Heart rate 89 /min [facility] 01-07-2023 10:44-0400 SaO2% (BldA) [Mass fraction] 97 % [facility] 01-07-2023 10:44-0400 Systolic blood pressure 120 mm[Hg] [facility] 12-03-2022 11:28-0400 Blood Pressure Location [facility] 12-03-2022 11:28-0400 Diastolic blood pressure 86 mm[Hg] [facility] 12-03-2022 11:28-0400 Heart rate 97 /min [facility] 12-03-2022 11:28-0400 SaO2% (BldA) [Mass fraction] 96 % [facility] [place] [place] 12-03-2022 11:28-0400 Systolic blood pressure 128 mm[Hg] [facility] 09-29-2022 08:54-0400 Blood Pressure Location [facility] 09-29-2022 08:54-0400 Body temperature 98.78 [degF] [facility] 09-29-2022 08:54-0400 Diastolic blood pressure 82 mm[Hg] [facility] 09-29-2022 08:54-0400 Heart rate 92 /min [facility] 09-29-2022 08:54-0400 SaO2% (BldA) [Mass fraction] 99 % [facility] [place] [place] 09-29-2022 08:54-0400 Systolic blood pressure 118 mm[Hg] [facility] [place] [place] 11-15-2021 19:00-0400 Body height 152.4 cm Melissa Weaver Other [employer] [facility] [employer] Other 11-15-2021 19:00-0400 Body mass index (BMI) [Ratio] 40.42 kg/m2 Melissa Weaver Other [employer] Other 11-15-2021 19:00-0400 Body temperature 96 [degF] Melissa Weaver Other [facility] Other 11-15-2021 19:00-0400 Body weight 93.9 kg Melissa Weaver Other [facility] Other 11-15-2021 19:00-0400 SaO2% (BldA) [Mass fraction] 98 % Melissa Weaver Other [employer] Other Encounters Encounter Date Encounter Type Care Provider Facility Start: 06-25-2023 End: 06-25-2023 Patient encounter procedure Clint Ortiz [facility] Start: 06-25-2023 End: 06-25-2023 Patient encounter procedure Clint Ortiz [facility] Start: 06-07-2023 End: 06-08-2023 ambulatory Vinnie Romero Facility:[facility] Start: 06-07-2023 End: 06-07-2023 Patient encounter procedure Vinnie Romero [facility] Start: 04-21-2023 End: 04-22-2023 ambulatory Clint Ortiz Facility:[facility] Start: 04-21-2023 End: 04-21-2023 Patient encounter procedure Clint Ortiz [facility] Start: 04-20-2023 End: 04-21-2023 ambulatory Clint Ortiz Facility:[facility] Start: 04-20-2023 End: 04-20-2023 Patient encounter procedure Clint Ortiz [facility] Start: 02-18-2023 End: 02-19-2023 ambulatory Clint Ortiz Facility:[facility] Start: 02-18-2023 End: 02-18-2023 Patient encounter procedure Clint Ortiz [facility] Start: 02-18-2023 End: 02-18-2023 Well adult monitoring check done Clint Ortiz [facility] Start: 01-07-2023 End: 01-08-2023 ambulatory Clint Charles Cromley Facility:[facility] Start: 01-07-2023 End: 01-07-2023 Patient encounter procedure Clint Ortiz [facility] Start: 12-08-2022 ambulatory Clint Ortiz Facility :[facility] Start: 12-03-2022 End: 12-04-2022 ambulatory Clint Ortiz Facility:[facility] Start: 12-03-2022 End: 12-03-2022 Patient encounter procedure Clint Ortiz [facility] Start: 10-27-2022 End: 10-28-2022 ambulatory Clint Ortiz Facility:[facility] Start: 10-27-2022 End: 10-27-2022 Patient encounter procedure Clint Ortiz [facility] Start: 10-16-2022 End: 10-17-[address] LEE SERRATO . Facility:[facility] Start: 10-06-2022 End: 10-07-2022 ambulatory Clint Ortiz Facility:[facility] Start: 10-06-2022 End: 10-06-2022 Patient encounter procedure Clint Ortiz [facility] Start: 09-29-2022 End: 09-30-2022 ambulatory Clint Ortiz Facility:[facility] Start: 09-29-2022 End: 09-29-2022 Patient encounter procedure Clint Ortiz [facility] Start: 09-15-2022 End: 09-16-[address] LEE SERRATO . Facility:[facility] Start: 08-26-2022 End: 08-26-[address] LEE SERRATO . Facility:[facility] Start: 08-15-2022 ambulatory Clint Ortiz Facility :[facility] Start: 07-15-2022 End: 07-16-[address] LEE SERRATO . Facility:[facility] Start: 06-27-2022 End: 06-27-[address] ANA SALMERON . Facility:[facility] Start: 05-24-2022 End: 05-24-2022 ambulatory REED H FABlankaWAD Facility:[facility] Start: 05-22-2022 End: 05-23-2022 ambulatory REED H FABlankaWAD Facility:[facility] Start: 05-19-2022 End: 05-20-2022 ambulatory REED H FABlankaWAD Facility:[facility] Start: 05-12-2022 End: 05-13-2022 ambulatory REED H FABlankaWAD Facility:[facility] Start: 04-11-2022 End: 04-12-2022 ambulatory REED H FABlankaWAD Facility:[facility] Start: 03-11-2022 End: 03-12-2022 ambulatory REED H FABlankaWAD Facility:[facility] Start: 02-10-2022 End: 02-11-2022 ambulatory SHAIKH Higinio SALVADORWAD Facility:[facility] Start: 01-10-2022 End: 01-11-[address] LEE SERRATO . Facility:[facility] Start: 11-15-2021 End: 11-15-2021 ambulatory Melissa Weaver Other [facility] Other Start: 11-15-2021 Office outpatient vi sit 25 minutes Melissa Weaver [facility] Start: 11-14-2021 End: 11-15-2021 ambulatory SHAIKH Higinio MANJARREZD Facility:[facility] Start: 10-24-2021 End: 10-25-[address] LEE SERRATO . Facility:[facility] Start: 08-15-2021 End: 08-15-2021 ambulatory Petros Lion Other [facility] Other Start: 08-15-2021 Office outpatient ne w 30 minutes Petros Lion [facility] Procedures Date Procedure Procedure Detail Performing Clinician delivery only Christiano Ortiz Colonoscopy Clint Ortiz Dilation & curettage dx&/ther nonobstetri c Clint Ortiz Operation on gallbladder Eriberto Ortiz Structure of carpal canal (body structure ) Clint Ortiz Plan of Treatment Date Care Activity Detail Author Start: 02-23-2024 ambulatory Ambulatory Facility:[facility] Start: 07-21-2023 ambulatory Ambulatory Facility:[facility] Immunizations Immunization Date Immunization Notes Care Provider Fa cility 06-23-2023 influenza, injectabl e, quadrivalent, preservative free [facility] 04-21-2023 influenza, injectabl e, quadrivalent, preservative free [facility] 05-05-2022 influenza virus vacc ine, unspecified formulation [facility] 05-21-2021 influenza virus vacc ine, unspecified formulation [facility] Payers Date Payer Category Payer Unknown 1985 Unknown [id number] 2.16.84 0.1.635627.3.579.2.593 1985 Unknown [id number] 2.16.84 0.1.492105.3.579.2.593 1985 Unknown [id number] 2.16.84 0.1.914499.3.579.2.593 1985 Unknown [id number] 2.16.84 0.1.526329.3.579.2.593 1985 Unknown [id number] 2.16.84 0.1.540829.3.579.2.593 1985 Unknown [id number] 2.16.84 0.1.144350.3.579.2.593 1985 Unknown [id number] 2.16.84 0.1.637780.3.579.2.593 1985 Unknown [id number] 2.16.84 0.1.453824.3.579.2.593 1985 Unknown [id number] 2.16.84 0.1.646753.3.579.2.593 1985 Unknown [id number] 2.16.84 0.1.454500.3.579.2.593 1985 Unknown [id number] 2.16.84 0.1.599567.3.579.2.593 1985 Unknown [id number] 2.16.84 0.1.263579.3.579.2.593 1985 Unknown [id number] 2.16.84 0.1.744425.3.579.2.593 1985 Unknown [id number] 2.16.84 0.1.334941.3.579.2.593 1985 Unknown [id number] 2.16.84 0.1.924884.3.579.2.593 1985 Unknown [id number] 2.16.8 40.1.779256.3.579.2.727 1985 Unknown [id number] 2.16.8 40.1.104342.3.579.2.727 1985 Unknown [id number] 2.16.8 40.1.939221.3.579.2.727 1985 Unknown [id number] 2.16.8 40.1.496813.3.579.2.727 1985 Unknown [id number] 2.16.8 40.1.231851.3.579.2.727 1985 Unknown [id number] 2.16.8 40.1.285019.3.579.2.727 1985 Unknown [id number] 2.16.8 40.1.339669.3.579.2.727 1985 Unknown [id number] 2.16.8 40.1.709875.3.579.2.727 1985 Unknown [id number] 2.16.8 40.1.034600.3.579.2.727 1985 Unknown [id number] 2.16.8 40.1.339132.3.579.2.727 1985 Unknown [id number] 2.16.8 40.1.342026.3.579.2.727 1985 Unknown [id number] 2.16.8 40.1.727334.3.579.2.727 1985 Unknown [id number] 2.16.8 40.1.684665.3.579.2.727 1985 Unknown [id number] 2.16.8 40.1.433149.3.579.2.727 1959 Medicare [id number] 2.1 6.840.1.705713. 1959 Unknown [id number] 2. 16.840.1.755946.19 1959 Unknown [id number] Social History Date Type Detail Facility Sex Assigned At [facility] Start: 09-29-2022 End: 01-07-2023 Tobacco smoking status Never [facility] Tobacco Current vaping o r e-cigarette use Smokeless Tobacco Use:. Vaping, 12 per day. Ready to change: No. [facility] Tobacco smoking status No Smokin g Status Entered [facility] Start: 06-07-2023 End: 06-25-2023 Tobacco smoking status Ex-smoker (finding) [facility] Functional Status Date Assessment Result Facility 06-07-2023 Functional Status N/A [facility] 04-21-2023 Functional Status N/A [facility] 02-18-2023 Functional Status N/A [facility] 01-07-2023 Functional Status N/A [facility] 12-03-2022 Functional Status N/A [facility] 09-29-2022 Functional Status N/A [facility] Clinical Notes 08-15-2021 to 06-25-2023 Laboratory Note Date & Type Note Facility 06-25-2023 Hospital Discharge instructions Patient Education 06/25/2023 15:58:28 Heat Therapy, [id number] Heat Therapy Heat therapy can help ease sore, stiff, injured, and tight muscles and joints. Heat relaxes your muscles. This may help ease your pain and muscle spasms. What are the risks? If you have any of the following conditions, do not use heat therapy unless your doctor says it is okay. These conditions include: New bruises. Open wounds. Any of these in the area being treated: ?Healing wounds. ?Infected skin. ?Scarred skin. Problems with how blood moves through your body (circulation). Loss of feeling (numbness) in the part of your body that is being treated. Unusual swelling of the part of the body that is being treated. Blood clots. Diabetes. Heart disease. Cancer. Not being able to communicate pain. This may include young children and people who have problems with their brain function (dementia). How to use heat therapy There are different kinds of heat therapy. These include: Moist heat pack. Hot water bottle. Electric heating pad. Heated gel pack. Heated wrap. Warm water bath. Your doctor will tell you how to use heat therapy. In general, you should: 1.Place a towel between your skin and the heat source. 2.Leave the heat on for 20 30 minutes. Your skin may turn pink. 3.Take off the heat if your skin turns bright red. This is very important. If you cannot feel pain, heat, or cold, you have a greater risk of getting burned. Your doctor may also tell you to take a warm water bath. To do this: 1.Put a non-slip pad in the bathtub to prevent a fall. 2.Fill the bathtub with warm water. 3.Check the water temperature. 4.Soak in the water for 15 20 minutes, or as told by your doctor. 5.Be careful when you stand up after the bath. You may feel dizzy. 6.Pat yourself dry after the bath. Do not rub your skin to dry it. General recommendations for heat therapy Be careful not to burn your skin when using heat therapy. High heat or using heat for a long time can cause ibrahim. Do not sleep while using heat therapy. Only use heat therapy while you are awake. Check your skin during heat therapy. Do not use heat therapy if you have a new injury, especially if you have swelling on the injured area. Do not use heat therapy on areas of your skin that are already irritated, such as with a rash or sunburn. Do not use heat therapy if your skin turns bright red. Contact a doctor if: You have blisters, redness, swelling, or loss of feeling in the area where you use heat therapy. You have new pain. You have pain that gets worse. Summary Heat therapy is the use of heat to help ease sore, stiff, injured, and tight muscles and joints. There are different types of heat therapy. Your doctor will tell you which one to use. Only use heat therapy while you are awake. Watch your skin to make sure you do not get burned while using heat therapy. This information is not intended to replace advice given to you by your health care provider. Make sure you discuss any questions you have with your health care provider. Document Revised: 04/03/2021 Document Reviewed: 04/03/2021 [employer] Patient Education 2022 [employer] Follow Up Care 06/22/2023 09:04:37 With:Angel GIL, ROSETTA Hubbard, PED Address: [address] [place] [address] [address] [place] [address] [id number] When:1 month Comments:1-2 month f/u - 20 min slot [facility] 02-18-2023 Hospital Discharge instructions Patient Education 02/18/2023 10:46:36 Exercising to Lose Weight Exercising to Lose Weight Getting regular exercise is important for everyone. It is especially important if you are overweight. Being overweight increases your risk of heart disease, stroke, diabetes, high blood pressure, and several types of cancer. Exercising, and reducing the calories you consume, can help you lose weight and improve fitness and health. Exercise can be moderate or vigorous intensity. To lose weight, most people need to do a certain amount of moderate or vigorous-intensity exercise each week. How can exercise affect me? You lose weight when you exercise enough to burn more calories than you eat. Exercise also reduces body fat and builds muscle. The more muscle you have, the more calories you burn. Exercise also: Improves mood. Reduces stress and tension. Improves your overall fitness, flexibility, and endurance. Increases bone strength. Moderate-intensity exercise Moderate-intensity exercise is any activity that gets you moving enough to burn at least three times more energy (calories) than if you were sitting. Examples of moderate exercise include: Walking a mile in 15 minutes. Doing light yard work. Biking at an easy pace. Most people should get at least 150 minutes of moderate-intensity exercise a week to maintain their body weight. Vigorous-intensity exercise Vigorous-intensity exercise is any activity that gets you moving enough to burn at least six times more calories than if you were sitting. When you exercise at this intensity, you should be working hard enough that you are not able to carry on a conversation. Examples of vigorous exercise include: Running. Playing a team sport, such as football, basketball, and soccer. Jumping rope. Most people should get at least 75 minutes a week of vigorous exercise to maintain their body weight. What actions can I take to lose weight? The amount of exercise you need to lose weight depends on: Your age. The type of exercise. Any health conditions you have. Your overall physical ability. Talk to your health care provider about how much exercise you need and what types of activities are safe for you. Nutrition Make changes to your diet as told by your health care provider or diet and nutrition partner (dietitian). This may include: ?Eating fewer calories. ?Eating more protein. ?Eating less unhealthy fats. ?Eating a diet that includes fresh fruits and vegetables, whole grains, low-fat dairy products, and lean protein. ?Avoiding foods with added fat, salt, and sugar. Drink plenty of water while you exercise to prevent dehydration or heat stroke. Activity Choose an activity that you enjoy and set realistic goals. Your health care provider can help you make an exercise plan that works for you. Exercise at a moderate or vigorous intensity most days of the week. ?The intensity of exercise may vary from person to person. You can tell how intense a workout is for you by paying attention to your breathing and heartbeat. Most people will notice their breathing and heartbeat get faster with more intense exercise. Do resistance training twice each week, such as: ?Push-ups. ?Sit-ups. ?Lifting weights. ?Using resistance bands. Getting short amounts of exercise can be just as helpful as long, structured periods of exercise. If you have trouble finding time to exercise, try doing these things as part of your daily routine: ?Get up, stretch, and walk around every 30 minutes throughout the day. ?Go for a walk during your lunch break. ?Park your car farther away from your destination. ?If you take public transportation, get off one stop early and walk the rest of the way. ?Make phone calls while standing up and walking around. ?Take the stairs instead of elevators or escalators. Wear comfortable clothes and shoes with good support. Do not exercise so much that you hurt yourself, feel dizzy, or get very short of breath. Where to find more information U.S. Department of Health and Human Services: www.hhs.gov Centers for Disease Control and Prevention: www.cdc.gov Contact a health care provider: Before starting a new exercise program. If you have questions or concerns about your weight. If you have a medical problem that keeps you from exercising. Get help right away if: You have any of the following while exercising: ?Injury. ?Dizziness. ?Difficulty breathing or shortness of breath that does not go away when you stop exercising. ?Chest pain. ?Rapid heartbeat. These symptoms may represent a serious problem that is an emergency. Do not wait to see if the symptoms will go away. Get medical help right away. Call your local emergency services (911 in the [place] Do not drive yourself to the hospital. Summary Getting regular exercise is especially important if you are overweight. Being overweight increases your risk of heart disease, stroke, diabetes, high blood pressure, and several types of cancer. Losing weight happens when you burn more calories than you eat. Reducing the amount of calories you eat, and getting regular moderate or vigorous exercise each week, helps you lose weight. This information is not intended to replace advice given to you by your health care provider. Make sure you discuss any questions you have with your health care provider. Document Revised: 07/28/2021 Document Reviewed: 07/28/2021 [employer] Patient Education 2022 [employer] 02/18/2023 10:46:33 BMI for Adults BMI for Adults What is BMI? Body mass index (BMI) is a number that is calculated from a person's weight and height. BMI can help estimate how much of a person's weight is composed of fat. BMI does not measure body fat directly. Rather, it is an alternative to procedures that directly measure body fat, which can be difficult and expensive. BMI can help identify people who may be at higher risk for certain medical problems. What are BMI measurements used for? BMI is used as a screening tool to identify possible weight problems. It helps determine whether a person is obese, overweight, a healthy weight, or underweight. BMI is useful for: Identifying a weight problem that may be related to a medical condition or may increase the risk for medical problems. Promoting changes, such as changes in diet and exercise, to help reach a healthy weight. BMI screening can be repeated to see if these changes are working. How is BMI calculated? BMI involves measuring your weight in relation to your height. Both height and weight are measured, and the BMI is calculated from those numbers. This can be done either in [place] ([place] or metric measurements. Note that charts and online BMI calculators are available to help you find your BMI quickly and easily without having to do these calculations yourself. To calculate your BMI in [place]ian ([place] measurements: 1.Measure your weight in pounds (lb). 2.Multiply the number of pounds by 703. For example, for a person who weighs 180 lb, multiply that number by 703, which equals 126,540. 3.Measure your height in inches. Then multiply that number by itself to get a measurement called inches squared. For example, for a person who is 70 inches tall, the inches squared measurement is 70 inches x 70 inches, which equals 4,900 inches squared. 4.Divide the total from step 2 (number of lb x 703) by the total from step 3 (inches squared): 126,540 4,900 = 25.8. This is your BMI. To calculate your BMI in metric measurements: 1.Measure your weight in kilograms (kg). 2.Measure your height in meters (m). Then multiply that number by itself to get a measurement called meters squared. For example, for a person who is 1.75 m tall, the meters squared measurement is 1.75 m x 1.75 m, which is equal to 3.1 meters squared. 3.Divide the number of kilograms (your weight) by the meters squared number. In this example: 70 3.1 = 22.6. This is your BMI. What do the results mean? BMI charts are used to identify whether you are underweight, normal weight, overweight, or obese. The following guidelines will be used: Underweight: BMI less than 18.5. Normal weight: BMI between 18.5 and 24.9. Overweight: BMI between 25 and 29.9. Obese: BMI of 30 or above. Keep these notes in mind: Weight includes both fat and muscle, so someone with a muscular build, such as an athlete, may have a BMI that is higher than 24.9. In cases like these, BMI is not an accurate measure of body fat. To determine if excess body fat is the cause of a BMI of 25 or higher, further assessments may need to be done by a health care provider. BMI is usually interpreted in the same way for men and women. Where to find more information For more information about BMI, including tools to quickly calculate your BMI, go to these websites: Centers for Disease Control and Prevention: www.cdc.gov [place] [employer]: www.heart.org National Heart, Lung, and Blood [place]: www.nhlbi.nih.gov Summary Body mass index (BMI) is a number that is calculated from a person's weight and height. BMI may help estimate how much of a person's weight is composed of fat. BMI can help identify those who may be at higher risk for certain medical problems. BMI can be measured using [place]vian measurements or metric measurements. BMI charts are used to identify whether you are underweight, normal weight, overweight, or obese. This information is not intended to replace advice given to you by your health care provider. Make sure you discuss any questions you have with your health care provider. Document Revised: 02/22/2020 Document Reviewed: 12/30/2019 [employer] Patient Education 2022 [employer] 02/18/2023 10:19:14 Steps to Quit Smoking, [id number] Steps to Quit Smoking Smoking tobacco is the leading cause of preventable . It can affect almost every organ in the body. Smoking puts you and people around you at risk for many serious, long-lasting (chronic) diseases. Quitting smoking can be hard, but it is one of the best things that you can do for your health. It is never too late to quit. Do not give up if you cannot quit the first time. Some people need to try many times to quit. Do your best to stick to your quit plan, and talk with your doctor if you have any questions or concerns. How do I get ready to quit? Pick a date to quit. Set a date within the next 2 weeks to give you time to prepare. Write down the reasons why you are quitting. Keep this list in places where you will see it often. Tell your family, friends, and co-workers that you are quitting. Their support is important. Talk with your doctor about the choices that may help you quit. Find out if your health insurance will pay for these treatments. Know the people, places, things, and activities that make you want to smoke (triggers). Avoid them. What first steps can I take to quit smoking? Throw away all cigarettes at home, at work, and in your car. Throw away the things that you use when you smoke, such as ashtrays and lighters. Clean your car. Empty the ashtray. Clean your home, including curtains and carpets. What can I do to help me quit smoking? Talk with your doctor about taking medicines and seeing a counselor. You are more likely to succeed when you do both. If you are or : Talk with your doctor about counseling or other ways to quit smoking. Do not take medicine to help you quit smoking unless your doctor tells you to. Quit right away Quit smoking completely, instead of slowly cutting back on how much you smoke over a period of time. Stopping smoking right away may be more successful than slowly quitting. Go to counseling. In-person is best if this is an option. You are more likely to quit if you go to counseling sessions regularly. Take medicine You may take medicines to help you quit. Some medicines need a prescription, and some you can buy tcet-drr-yoadnxa. Some medicines may contain a drug called nicotine to replace the nicotine in cigarettes. Medicines may: Help you stop having the desire to smoke (cravings). Help to stop the problems that come when you stop smoking (withdrawal symptoms). Your doctor may ask you to use: Nicotine patches, gum, or lozenges. Nicotine inhalers or sprays. Non-nicotine medicine that you take by mouth. Find resources Find resources and other ways to help you quit smoking and remain smoke-free after you quit. They include: Online chats with a counselor. Phone quitlines. Printed self-help materials. Support groups or group counseling. Text messaging programs. Mobile phone apps. Use apps on your mobile phone or tablet that can help you stick to your quit plan. Examples of free services include Quit Guide from the CDC and smokefree.gov What can I do to make it easier to quit? Talk to your family and friends. Ask them to support and encourage you. Call a phone quitline, such as 8-247-TMQJ-NOW, reach out to support groups, or work with a counselor. Ask people who smoke to not smoke around you. Avoid places that make you want to smoke, such as: ?Bars. ?Parties. ?Smoke-break areas at work. Spend time with people who do not smoke. Lower the stress in your life. Stress can make you want to smoke. Try these things to lower stress: ?Getting regular exercise. ?Doing deep-breathing exercises. ?Doing yoga. ?Meditating. What benefits will I see if I quit smoking? Over time, you may have: A better sense of smell and taste. Less coughing and sore throat. A slower heart rate. Lower blood pressure. Clearer skin. Better breathing. Fewer sick days. Summary Quitting smoking can be hard, but it is one of the best things that you can do for your health. Do not give up if you cannot quit the first time. Some people need to try many times to quit. When you decide to quit smoking, make a plan to help you succeed. Quit smoking right away, not slowly over a period of time. When you start quitting, get help and support to keep you smoke-free. This information is not intended to replace advice given to you by your health care provider. Make sure you discuss any questions you have with your health care provider. Document Revised: 05/23/2022 Document Reviewed: 05/23/2022 [employer] Patient Education 2022 [employer]. 02/18/2023 10:19:12 Steps to Quit Smoking Steps to Quit Smoking Smoking tobacco is the leading cause of preventable . It can affect almost every organ in the body. Smoking puts you and those around you at risk for developing many serious chronic diseases. Quitting smoking can be very challenging. Do not get discouraged if you are not successful the first time. Some people need to make many attempts to quit before they achieve long-term success. Do your best to stick to your quit plan, and talk with your health care provider if you have any questions or concerns. How do I get ready to quit? When you decide to quit smoking, create a plan to help you succeed. Before you quit: Pick a date to quit. Set a date within the next 2 weeks to give you time to prepare. Write down the reasons why you are quitting. Keep this list in places where you will see it often. Tell your family, friends, and co-workers that you are quitting. Support from people you are close to can make quitting easier. Talk with your health care provider about your options for quitting smoking. Find out what treatment options are covered by your health insurance. Identify people, places, things, and activities that make you want to smoke (triggers). Avoid them. What first steps can I take to quit smoking? Throw away all cigarettes at home, at work, and in your car. Throw away smoking accessories, such as ashtrays and lighters. Clean your car. Make sure to empty the ashtray. Clean your home, including curtains and carpets. What strategies can I use to quit smoking? Talk with your health care provider about combining strategies, such as taking medicines while you are also receiving in-person counseling. Using these two strategies together makes you more likely to succeed in quitting than if you used either strategy on its own. If you are or , talk with your health care provider about finding counseling or other support strategies to quit smoking. Do not take medicine to help you quit smoking unless your health care provider tells you to. Quit right away Quit smoking completely, instead of gradually reducing how much you smoke over a period of time. Stopping smoking right away may be more successful than gradually quitting. Attend in-person counseling to help you build problem-solving skills. You are more likely to succeed in quitting if you attend counseling sessions regularly. Even short sessions of 10 minutes can be effective. Take medicine You may take medicines to help you quit smoking. Some medicines require a prescription. You can also purchase diou-pdb-gtewegc medicines. Medicines may have nicotine in them to replace the nicotine in cigarettes. Medicines may: Help to stop cravings. Help to relieve withdrawal symptoms. Your health care provider may recommend: Nicotine patches, gum, or lozenges. Nicotine inhalers or sprays. Non-nicotine medicine that you take by mouth. Find resources Find resources and support systems that can help you quit smoking and remain smoke-free after you quit. These resources are most helpful when you use them often. They include: Online chats with a counselor. Telephone quitlines. Printed self-help materials. Support groups or group counseling. Text messaging programs. Mobile phone apps or applications. Use apps that can help you stick to your quit plan by providing reminders, tips, and encouragement. Examples of free services include Quit Guide from the CDC and smokefree.gov What can I do to make it easier to quit? Reach out to your family and friends for support and encouragement. Call telephone quitlines, such as 8-389-AACA-NOW, reach out to support groups, or work with a counselor for support. Ask people who smoke to avoid smoking around you. Avoid places that trigger you to smoke, such as bars, parties, or smoke-break areas at work. Spend time with people who do not smoke. Lessen the stress in your life. Stress can be a smoking trigger for some people. To lessen stress, try: ?Exercising regularly. ?Doing deep-breathing exercises. ?Doing yoga. ?Meditating. What benefits will I see if I quit smoking? Over time, you should start to see positive results, such as: Improved sense of smell and taste. Decreased coughing and sore throat. Slower heart rate. Lower blood pressure. Clearer and healthier skin. The ability to breathe more easily. Fewer sick days. Summary Quitting smoking can be very challenging. Do not get discouraged if you are not successful the first time. Some people need to make many attempts to quit before they achieve long-term success. When you decide to quit smoking, create a plan to help you succeed. Quit smoking right away, not slowly over a period of time. Find resources and support systems that can help you quit smoking and remain smoke-free after you quit. This information is not intended to replace advice given to you by your health care provider. Make sure you discuss any questions you have with your health care provider. Document Revised: 05/23/2022 Document Reviewed: 05/23/2022 [employer] Patient Education 2022 [employer]. 02/18/2023 10:19:04 Major Depressive Disorder, Adult Major Depressive Disorder, Adult Major depressive disorder (MDD) is a mental health condition. It may also be called clinical depression or unipolar depression. MDD causes symptoms of sadness, hopelessness, and loss of interest in things. These symptoms last most of the day, almost every day, for 2 weeks. MDD can also cause physical symptoms. It can interfere with relationships and with everyday activities, such as work, school, and activities that are usually pleasant. MDD may be mild, moderate, or severe. It may be single-episode MDD, which happens once, or recurrent MDD, which may occur multiple times. What are the causes? The exact cause of this condition is not known. MDD is most likely caused by a combination of things, which may include: Your personality traits. [place] or conditioned behaviors or thoughts or feelings that reinforce negativity. Any alcohol or substance misuse. Long-term (chronic) physical or mental health illness. Going through a traumatic experience or major life changes. What increases the risk? The following factors may make someone more likely to develop MDD: A family history of depression. Being a woman. Troubled family relationships. Abnormally low levels of certain brain chemicals. Traumatic or painful events in childhood, especially abuse or loss of a parent. A lot of stress from life experiences, such as poor living conditions or discrimination. Chronic physical illness or other mental health disorders. What are the signs or symptoms? The main symptoms of MDD usually include: Constant depressed or irritable mood. A loss of interest in things and activities. Other symptoms include: Sleeping or eating too much or too little. Unexplained weight gain or weight loss. Tiredness or low energy. Being agitated, restless, or weak. Feeling hopeless, worthless, or guilty. Trouble thinking clearly or making decisions. Thoughts of suicide or thoughts of harming others. Isolating oneself or avoiding other people or activities. Trouble completing tasks, work, or any normal obligations. Severe symptoms of this condition may include: Psychotic depression.This may include false beliefs, or delusions. It may also include seeing, hearing, tasting, smelling, or feeling things that are not real (hallucinations). Chronic depression or persistent depressive disorder. This is low-level depression that lasts for at least 2 years. Melancholic depression, or feeling extremely sad and hopeless. Catatonic depression, which includes trouble speaking and trouble moving. How is this diagnosed? This condition may be diagnosed based on: Your symptoms. Your medical and mental health history. You may be asked questions about your lifestyle, including any drug and alcohol use. A physical exam. Blood tests to rule out other conditions. MDD is confirmed if you have the following symptoms most of the day, nearly every day, in a 2-week period: Either a depressed mood or loss of interest. At least four other MDD symptoms. How is this treated? This condition is usually treated by mental health professionals, such as psychologists, psychiatrists, and clinical social workers. You may need more than one type of treatment. Treatment may include: Psychotherapy, also called talk therapy or counseling. Types of psychotherapy include: ?Cognitive behavioral therapy (CBT). This teaches you to recognize unhealthy feelings, thoughts, and behaviors, and replace them with positive thoughts and actions. ?Interpersonal therapy (IPT). This helps you to improve the way you communicate with others or relate to them. ?Family therapy. This treatment includes members of your family. Medicines to treat anxiety and depression. These medicines help to balance the brain chemicals that affect your emotions. Lifestyle changes. You may be asked to: ?Limit alcohol use and avoid drug use. ?Get regular exercise. ?Get plenty of sleep. ?Make healthy eating choices. ?Spend more time outdoors. Brain stimulation. This may be done if symptoms are very severe and other treatments have not worked. Examples of this treatment are electroconvulsive therapy and transcranial magnetic stimulation. Follow these instructions at home: Activity Exercise regularly and spend time outdoors. Find activities that you enjoy doing, and make time to do them. Find healthy ways to manage stress, such as: ?Meditation or deep breathing. ?Spending time in nature. ?Journaling. Return to your normal activities as told by your health care provider. Ask your health care provider what activities are safe for you. Alcohol and drug use If you drink alcohol: ?Limit how much you use to: ?0 1 drink a day for women who are not . ?0 2 drinks a day for men. ?Be aware of how much alcohol is in your drink. In the [place] one drink equals one 12 oz bottle of beer (355 mL), one 5 oz glass of wine (148 mL), or one 1 oz glass of hard liquor (44 mL). ?Discuss your alcohol use with your health care provider. Alcohol can affect any antidepressant medicines you are taking. Discuss any drug use with your health care provider. General instructions Take rrpr-cid-ztiezhz and prescription medicines only as told by your health care provider. Eat a healthy diet and get plenty of sleep. Consider joining a support group. Your health care provider may be able to recommend one. Keep all follow-up visits as told by your health care provider. This is important. Where to find more information National [place] on Mental Illness: www.leobardo.org [place] National [place] of Mental Health: www.nimh.nih.gov Contact a health care provider if: Your symptoms get worse. You develop new symptoms. Get help right away if: You self-harm. You have serious thoughts about hurting yourself or others. You hallucinate. If you ever feel like you may hurt yourself or others, or have thoughts about taking your own life, get help right away. Go to your nearest emergency department or: Call your local emergency services (181 in the [place] Call a suicide crisis helpline, such as the National Suicide Prevention Lifeline at or 367 in the [place] This is open 24 hours a day in the [place] Text the Crisis Text Line at 809082 (in the [place] Summary Major depressive disorder (MDD) is a mental health condition. MDD causes symptoms of sadness, hopelessness, and loss of interest in things. These symptoms last most of the day, almost every day, for 2 weeks. The symptoms of MDD can interfere with relationships and with everyday activities. Treatments and support are available for people who develop MDD. You may need more than one type of treatment. Get help right away if you have serious thoughts about hurting yourself or others. This information is not intended to replace advice given to you by your health care provider. Make sure you discuss any questions you have with your health care provider. Document Revised: 12/25/2021 Document Reviewed: 05/12/2020 [employer] Patient Education 2022 [employer]. 02/18/2023 10:19:00 Health Risks of Smoking Health Risks of Smoking Smoking tobacco is very bad for your health. Tobacco smoke contains many toxic chemicals that can damage every part of your body. Secondhand smoke can be harmful to those around you. Tobacco or nicotine use can cause many long-term (chronic) diseases. Smoking is difficult to quit because a chemical in tobacco, called nicotine, causes addiction or dependence. When you smoke and inhale, nicotine is absorbed quickly into your bloodstream through your lungs. Both inhaled and non-inhaled nicotine may be addictive. How can quitting affect me? There are health benefits of quitting smoking. Some benefits happen right away and others take time. Benefits may include: Blood flow, blood pressure, heart rate, and lung capacity may begin to improve. However, any lung damage that has already occurred cannot be repaired. Respiratory symptoms from smoking, such as nasal congestion and cough, may improve over time. Your risk of heart disease, stroke, and cancer is reduced. The overall quality of your health may improve. You may save money, as you will not spend money on tobacco products and may spend less money on smoking-related health issues. What can increase my risk? Smoking harms nearly every organ in the body. People who smoke tobacco have a shorter life expectancy and an increased risk of many serious medical problems. These include: More respiratory infections, such as colds and pneumonia. Cancer. Heart disease. Stroke. Chronic respiratory diseases. Delayed wound healing and increased risk of complications during surgery. Problems with reproduction, , and childbirth, such as infertility, early (premature) births, stillbirths, and defects. Secondhand smoke exposure to children increases the risk of: Sudden syndrome (SIDS). Infections in the nose, throat, or airways (respiratory infections). Chronic respiratory symptoms. What actions can I take to quit? Smoking is an addiction that affects both your body and your mind, and long-time habits can be hard to change. Your health care provider can recommend: Nicotine replacement products, such as patches, gum, and nasal sprays. Use these products only as directed. Do not replace cigarette smoking with electronic cigarettes, which are commonly called e-cigarettes. The safety of e-cigarettes is not known, and some may contain harmful chemicals. Programs and community resources, which may include group support, education, or talk therapy. Prescription medicines to help reduce cravings. A combination of two or more quit methods, which may increase the success of quitting. Where to find support Follow the recommendations from your health care provider about support groups and other assistance. You can also visit: [place]. Department of Health and Human Services: www.smokefree.gov [place] [employer]: www.freedomfromsmoking.org [place] [employer]: www.heart.org Where to find more information Centers for Disease Control and Prevention: www.cdc.gov World Health Organization: www.who.int Summary Smoking tobacco is very bad for your health. Tobacco smoke contains many toxic chemicals that can damage every part of the body. Smoking is difficult to quit because a chemical in tobacco, called nicotine, causes addiction or dependence. There are immediate and long-term health benefits of quitting smoking. A combination of two or more quit methods may increase the success of quitting. This information is not intended to replace advice given to you by your health care provider. Make sure you discuss any questions you have with your health care provider. Document Revised: 06/03/2022 Document Reviewed: 06/03/2022 [employer] Patient Education 2022 [employer]. [facility] Jose C 09-29-2022 Evaluation + Plan note Future Scheduled [id number] 09/29/22TSH With T4fr Reflex 09/29/22Comprehensive Metabolic Panel 09/29/22Lipid Panel 09/29/22 [facility] 11-15-2021 Evaluation note Encounter Date Diagnosis Assessment Notes Nov, Cough (ICD-10 - R05.9) Nov, COVID-19 (ICD-10 - U07.1) Rapid COVID test performed in office today. Advised patient that test was positive. Influenza A/B test negative. Instructed patient to isolate per CDC guidelines for 10 days from symptom onset. She may return to work after isolation period as long as symptoms are improving and has been afebrile for 24 hours without use of antipyretic. Advised patient that treatment of COVID is with viral supportive care. Will send in rx of Tessalon Perles and Albuterol Inhaler to use as needed. Tylenol/Motrin as needed for body aches/fever. Increase fluids and rest. Encouraged use of cool mist humidifier. Follow-up with PCP, referral placed. Immediate eval for SOB, difficulty, chest pain, fevers that do not break with antipyretic or any other concerning symptoms as reviewed on patient education handout. Patient verbalizes understanding and is agreeable to treatment plan. Patient left in stable condition [facility] 03-03-2022 Evaluation note* Encounter Date Diagnosis Assessment Notes Treatment Notes Treatment Clinical Notes Aug, Pain in left shoulder (ICD-10 - M25.512) Aug, Left shoulder tendonitis (ICD-10 - M77.8) This appears to be pain secondary to subacromial bursitis / rotator cuff tendonitis. We discussed and demonstrated gentle motion exercise and rotator cuff strengthening exercise. Discussed the use of non-steroidal anti-inflammatory medication. A marcaine / kenalog cortisone injection was performed into the subacromial space under sterile technique. Patient tolerated the injection well with no adverse reaction. Aug, Club foot of both lower extremities (ICD-10 - Q66.89) [facility] Evaluation + Plan note Future Appointments Appointment Date:10/06/2022 09:30:00 AM Scheduled Provider: Location:[facility] Appointment Type:PUL Pulmonary Function Test (FT) Future Scheduled Tests Laboratory* HgbA1c 09/29/22 * TSH With T4fr Reflex 09/29/22 * Comprehensive Metabolic Panel 09/29/22 * Lipid Panel 09/29/22 [facility] Evaluation + Plan note Future Appointments Appointment Date:12/03/2022 10:40:00 AM Scheduled Provider:Clint Ortiz DO Location:[facility] Appointment Type: Open Future Scheduled Tests Laboratory* HgbA1c 09/29/22 * TSH With T4fr Reflex 09/29/22 * Comprehensive Metabolic Panel 09/29/22 * Lipid [facility]29/22 [facility] Future App[facility]ments Appointment Date:01/07/2023 10:20:00 AM Scheduled Provider:Clint Ortiz DO Location:[facility] Appointment Type:[facility] Evaluation + Plan note Future Appointments Appointment Date:02/18/2023 09:30:00 AM Scheduled Provider: Location:[facility] Appointment Type: Medicare Wellness Initial Appointment Date:02/18/2023 11:00:00 AM Scheduled Provider:Clint Ortiz DO Location:[facility] Appointment Type: Open Future Scheduled Tests Laboratory* T3 Total 02/05/23 * Basic Metabolic Panel 01/07/23 * Magnesium Level 01/07/23 * Thyroid Stimulating Hormone 02/05/23 * Free T4 02/05/23 [facility] [place] Evaluation + Plan note Future Appointments Appointment Date:04/21/2023 08:00:00 AM Scheduled Provider:Clint Ortiz DO Location:[facility] Appointment Type: Open Appointment Date:02/23/2024 11:00:00 AM Scheduled Provider: Location:[facility] Appointment Type: Medicare Wellness Subsequent Future Scheduled Tests Laboratory* T3 Total 02/05/23 * Basic Metabolic Panel 01/07/23 * Magnesium Level 01/07/23 * Thyroid Stimulating Hormone 02/05/23 * Free T4 02/05/23 [facility] Evaluation + Plan note Future Appointments Appointment Date:04/21/2023 08:00:00 AM Scheduled Provider:Clint Ortiz DO Location:[facility] Appointment Type: Open Appointment Date:02/23/2024 11:00:00 AM Scheduled Provider: Location:[facility] Appointment Type: Medicare Wellness Subsequent Diagnostic Tests Pending * T3 [facility] Future [facility]ments Appointment Date:07/21/2023 08:00:00 AM Scheduled Provider:Clint Ortiz DO Location:[facility] Appointment Type: Open Appointment Date:02/23/2024 11:00:00 AM Scheduled Provider: Location:[facility] Appointment Type: Medicare Wellness Subsequent Future Scheduled Tests Laboratory* TSH With T4fr Reflex 05/19/23 [facility] Evaluation + Plan note Future Appointments Appointment Date:07/21/2023 08:00:00 AM Scheduled Provider:Clint Ortiz DO Location:[facility] Appointment Type: Open Appointment Date:02/23/2024 11:00:00 AM Scheduled Provider: Location:[facility] Appointment Type: Medicare Wellness Subsequent [facility] History general Narrative - Reported* Type Description Date Medical History chronic depression Medical History PCOS Medical History fibromyalgia Surgical History corrected clubbed feet Surgical History wisdom teeth Surgical History MRSA removal right thigh Surgical History Surgical History DNC x2 Surgical History Cystectomy left ovay Surgical History gall bladder Surgical History right carpal tunnel Surgical History GI scope with 2 biopsy [place] Other Hospital course Narrative No data available for this section [facility] Hospital Discharge instructions No data available for this section [facility] Progress note No data available for this section [facility] Reason for referral (narrative) Referred by: Clint Ortiz DO [facility] Summary Purpose Family History No Family History Records FoundNo Family History Records Found No data available for this section No data available for this section No data available for this section No data available for this section No Family History Records Found No data available for this section No data available for this section Advance Directives No Advanced Directives Records FoundNo Advanced Directives Records FoundNo Advanced Directives Records Found Reason for Referral Reason please refer to Vernon mancuso for establishment of care. Hx of bilateral club foot, hx of 2 surgeries during childhood. Diagnosis 1 Club foot of both lo wer extremities (Q66.89) Referral Organization [facility] Referring Provider First Name Cheyenne Referring Provider Last Name Anh Referring Provider Specialty Nurse Pract jose manuel Referred Organization [facility] Referred Address [address] [place], [place],[address] Referred Provider Specialty Podiatry - S urgical Chiropody Referral Priority Routine General Notes Cheyenne Avila 09:30:01 AM >referral is ready to be sent once office note is completedCheyenne Avila 08/19/2021 08:34:16 AM >note is not completed yet Additional Source Comments INFORMATION SOURCE (unrecogn ized section and content) DATE CREATED AUTHOR 08/27/2021 [facility] DATE CREATED AUTHOR AUTHOR'S ORGANIZ ATION 10/23/2022 [facility] DATE CREATED AUTHOR AUTHOR'S ORGANIZ ATION 06/10/2023 [facility] REASON FOR VISIT (unrecogniz ed section and content) Left Shoulder PainSILVER SUV , H/A, CONGESTION, H/A, SORE THROAT, N/V Patient Care team informatio n (unrecognized section and content) Personnel Name: Clint Ortiz DO Address: Address: [address] [place] [id number] Personnel Name: Clint Ortiz DO Address: Address: [address] [place] [address] AVE [facility] A [address] Personnel Name: Clint Ortiz DO Address: Address: [address] [place], [place] [address] [address] [facility] A [place] [id number] Personnel Name: Clint Ortiz DO Address: Address: [address] [place], [place] [address] [facility] A [place] [id number] Personnel Name: Clint Ortiz DO Address: Address: [address] [place], [place] [address] [place] [id number] Personnel Name: Clint Ortiz DO Address: Address: [address] [place], [place] [address] [place] [id number] Personnel Name: Clint Ortiz DO Address: Address: [address] [place] [address] AVE [facility] A [address] Personnel Name: Clint Ortiz DO Address: Address: [address] [place] [address] [address] [facility] [address] [place] [id number] Personnel Name: Clint Ortiz DO Address: Address: [address] [place] [address] Personnel Name: Clint Ortiz DO Address: Address: [address] [place] [address] Personnel Name: Clint Ortiz DO Address: Address: [address] [place] [address] Personnel Name: Clint Ortiz DO Address: Address: [address] [place] [address] Personnel Name: Clint Ortiz DO Address: Address: [address] [place] [address] Personnel Name: Clint Ortiz DO Address: Address: [address] [place] [address] FOR RECORDS PERTAINING TO PATIENTS WHO ARE OR HAVE BEEN ENROLLED IN A CHEMICAL DEPENDENCY/SUBSTANCEABUSE PROGRAM, SOME INFORMATION MAY BE OMITTED. This clinical summary was aggregated from multiple sources. Caution should be exercised in using it in the provision of clinical care. This summary normalizes information from multiple sources, and as a consequence, information in this document may materially change the coding, format and clinical context of patient data. In addition, data may be omitted in some cases. CLINICAL DECISIONS SHOULD BE BASED ON THE PRIMARY CLINICAL RECORDS. [facility] [employer] [facility] provides no warranty or guarantee of the accuracy or completeness of information in this document.
[2023-07-01 09:08] LABS: Progesterone 17.3 ng/mL (.)
== END 2023-06-29 15:31 | disposition home or self-care (01) ==
LOC: LAB 15:32
PROVIDERS: Visit Provider Obstetrics & Gynecology
DX: N92.6 Irregular menstruation, unspecified (principal); Z31.41 Encounter for fertility testing
CPT/HCPCS: 36415; 84144

== ENCOUNTER 2023-07-27 14:25 | Outpatient (OUT) | payer BC, MEDICARE, SELFPAY ==
[2023-07-28 08:12] LABS: Progesterone 23.8 ng/mL (.)
== END 2023-07-27 14:26 | disposition home or self-care (01) ==
LOC: LAB 14:27
PROVIDERS: Visit Provider Obstetrics & Gynecology
DX: N92.6 Irregular menstruation, unspecified (principal); Z31.41 Encounter for fertility testing
CPT/HCPCS: 36415; 84144

== ENCOUNTER 2023-08-10 09:40 | Day surgery (SDC) | payer BC, MEDICARE, SELFPAY ==
--- OUTSIDE RECORDS SUMMARY | 2023-08-10 09:56 | XMS_ITS | CCD ---
Author Name Unknown Address [id number] [place] [address] Organization [facility] Care Team Providers Care Global Ceo Name Role Phone Petros Lion Unavailable Melissa Weaver Unavailable Clint Ortiz Primary Care Physician Unavail able FAWWAD, REED H Primary Care Unavailable NAS ., DR HOWARD Consulting Unavailable NAS ., DR HOWARD Attending Unavailable NAS ., DR HOWARD Admitting Unavailable FAWWAD, REED H Consulting Unavailable FAWWAD, REED H Attending Unavailable FAWWAD, REED H Admitting Unavailable FAWWAD, REED H Primary Care Unavailable PAY ., DR PEREZ Attending Unavailable PAY ., DR PEREZ Admitting Unavailable GRECHNY ., EFRAIN GRIMALDO Consulting Unavailabl e FAWWAD, REED H Primary Care Unavailable KEYANNA SHARPE Consulting Unavailable NAS ., DR HOWARD Admitting Unavailable NAS ., DR HOWARD Consulting Unavailable FAWWAD, REED H Primary Care Unavailable NAS ., DR HOWARD Attending Unavailable NAS ., DR HOWARD Admitting Unavailable NAS ., DR HOWARD Consulting Unavailable FAWWAD, REED H Primary Care Unavailable NAS ., DR HOWARD Attending Unavailable FAWWAD, REED H Consulting Unavailable FAWWAD, REED H Attending Unavailable FAWWAD, REED H Admitting Unavailable FAWWAD, REED H Primary Care Unavailable FAWWAD, REED H Primary Care Unavailable NAS ., DR HOWARD Consulting Unavailable NAS ., DR HOWARD Attending Unavailable NAS ., DR HOWARD Admitting Unavailable FAWWAD, REED H Primary Care Unavailable SCOTT, DR DIDI Macdonald Attending Unavailabl e REINECK, DR DIDI Macdonald Admitting Unavailabl e FAWWAD, REED H Primary Care Unavailable NAS ., DR HOWARD Consulting Unavailable NAS ., DR HOWARD Admitting Unavailable NAS ., DR HOWARD Attending Unavailable [facility], [facility] Primary Care Unavailable NAS ., DR HOWARD Consulting Unavailable NAS ., DR HOWARD Admitting Unavailable NAS ., DR HOWARD Attending Unavailable NAS ., DR HOWARD Consulting Unavailable NAS ., DR HOWARD Attending Unavailable FAWWAD, REED H Primary Care Unavailable NAS ., DR HOWARD Admitting Unavailable NAS ., DR HOWARD Admitting Unavailable NAS ., DR HOWARD Consulting Unavailable FAWWAD, REED H Primary Care Unavailable NAS ., DR HOWARD Attending Unavailable NAS ., DR HOWARD Admitting Unavailable NAS ., DR HOWARD Consulting Unavailable FAW[facility]AD, [facility] Primary Care Unavailable NAS ., DR HOWARD Attending Unavailable NAS ., DR HOWARD Admitting Unavailable NAS ., DR HOWARD Consulting Unavailable NAS ., DR HOWARD Attending Unavailable [facility] [place] [place], DR URANO Primary Care Unavailable FAWAD, REED H Consulting Unavailable FAWAD, REED H Attending Unavailable FAWAD, REED H Admitting Unavailable FAWWAD, REED H Primary Care Unavailable Clint Ortiz Primary Care Physician Unavail able Angel TIAN DO, Robert James Unavailable Clint Ortiz DO Primary Care Provider [phone] Clint Ortiz Attending Unavailable Clint Ortiz Attending Unavailable Clint Ortiz Admitting Unavailable Clint Ortiz Attending Unavailable Clint Ortiz Attending Unavailable Clint Ortiz Admitting Unavailable Clint Ortiz Attending Unavailable Clint Ortiz Referring Unavailable Nick, Vinnie Vaughn Attending Unavailable Vinnie Romero Admitting Unavailable Clint Ortiz Admitting Unavailable Clint Ortiz Attending Unavailable Clint Ortiz Admitting Unavailable Clint Ortiz Attending Unavailable Clint Ortiz Admitting Unavailable Clint Ortiz Attending Unavailable Clint Ortiz Referring Unavailable Vinnie Romero Attending Unavailable Clint Ortiz Attending Unavailable Clint Ortiz Attending Unavailable Clint Ortiz Attending Unavailable Clint Ortiz Attending Unavailable Clint Ortiz Attending Unavailable Clint Ortiz Attending Unavailable Clint Ortiz Attending Unavailable EVELYNE CARCAMO Referring Unavailable CARLOS ALBERTO, EVELYNE Referring Unavailable CARLOS ALBERTO, EVELYNE Referring Unavailable EVELYNE CARCAMO Attending Unavailable Allergies Allergy Classification Reported Allergen(s) Allergy Type Date of Onset Reaction(s) Facility (20 sources) ziprasidone; Translations: [ziprasidone] Drug Allergy 3 anaphylaxis, Anaphylaxis (disorder) [facility] (2 sources) ziprasidone; Translations: [Geodon] Drug Allergy [facility] (1 source) Misc-Drug Drug allergy (disorder) [facility] (1 source) ziprasidone Drug Allergy 3 Anaphylaxis [facility] Medications Current Medications Medication Drug Class(es) Dates Sig (Normalized) Sig (Original) amitriptyline hydrochloride 10 mg oral tablet (1 [...] qAM, # 30 cap(s), Refills(s) 5, Pharmacy: [facility]/pharmacy #[id number], 158, cm, 09/29/22 9:07:00 EDT, Height/Length Dosing, 92.3, kg, 09/29/22 9:07:00 EDT, Weight Dosing Start Date: 10/21/22 Status: Ordered benzonatate 100 mg oral capsule (1 source) Non-narcotic Antitussive Start: 11-15-2021 take 1 capsule by mouth three times daily as needed Tessalon Perles 100 MG 1 capsule as needed Orally Three times a day for 7 days Nov, Active DULoxetine 30 mg delayed release oral capsule (5 sources) Serotonin and Norepinephrine Reuptake Inhibitor Start: 06-25-2023 take 1 capsule by mouth twice daily duloxetine 30 mg oral delayed release capsule 30 mg = 1 cap(s), Oral, BID, # 60 cap(s), Refills(s) 2, Pharmacy: [facility]/pharmacy #[id number], 155, cm, 06/25/23 15:06:00 EST, Height/Length Dosing, 87.5, kg, 06/25/23 15:06:00 EST, Weight Dosing Start Date: 06/25/23 Status: Ordered Start: 06-25-2023 take 1 capsule by mo uth once daily DULoxetine (CYMBALTA) 30 mg capsule Take 1 capsule by mouth once daily. 0 06/25/2023 Active Comment on above: Take 1 capsule by mo uth once daily. permanent handicap placard (9 sources) Start: 3 permanent handicap placard permanent handicap placard, See Instructions, 1 EA, 11, for chronic medical condition, Supply, 158, cm, 01/07/23 10:49:00 EDT, Height/Length Dosing, 86.3, kg, 01/07/23 10:49:00 EDT, Weight Dosing Start Date: 01/07/23 Status: Ordered Multivitamins (14 sources) Start: 3 take 1 tablet by mouth once daily Multivitamins 1 tab(s), Oral, Daily, Refill(s) 0 Start Date: 09/29/22 Status: Ordered MV-Min-Fe Fum-FA-DHA ( 1 PO) (1 source) MV-Min- Fe Fum-FA-DHA ( 1 PO) Take 1 tablet by mouth in the morning. 0 Active Completed/Discontinued Medications Medication Drug Class(es) Dates Sig (Normalized) Sig (Original) [id number] 200 actuat albuterol 0.09 mg/actuat metered dose inhaler (4 sources) beta2-Adrenergic Agonist Start: 07-06-2023 albuterol HFA (PROVENTIL HFA, VENTOLIN HFA) 90 mcg/actuation inhaler Inhale 1 Puff as instructed as needed. 0 07/06/2023 Active Start: 11-15-2021 take 2 puff(s) by in halation every four to six hours as needed Albuterol Sulfate HFA 108 (90 Base) MCG/ACT 2 puffs as needed Inhalation every 4-6 hours for 14 days Nov, Active Comment on above: Inhale 1 Puff as ins tructed as needed. Albuterol (Eqv-ProAir HFA) 90 mcg/inh inhalation aerosol (11 sources) Start: take 8.5 g by inhalation every six hours Albuterol (Eqv-ProAir HFA) 90 mcg/inh inhalation aerosol 180 mcg, 2 puff(s), Inhalation, q6hr, 8.5 gm, Refill(s) 11, [facility]/pharmacy #[id number], 158, cm, 04/21/23 8:07:00 EST, Height/Length Dosing, 86, kg, 04/21/23 8:07:00 EST, Weight Dosing Start Date: 05/04/23 Status: Ordered Start: 10-29-2022 take 8.5 g by inhala tion every six hours Albuterol (Eqv-ProAir HFA) 90 mcg/inh inhalation aerosol 180 mcg, 2 puff(s), Inhalation, q6hr, 8.5 gm, Refill(s) 11, [facility]/pharmacy #[id number], 158, cm, 09/29/22 9:07:00 EDT, Height/Length Dosing, 92.3, kg, 09/29/22 9:07:00 EDT, Weight Dosing Start Date: 10/29/22 Status: Ordered busPIRone hydrochloride 10 mg oral tablet (12 sources) Start: 05-20-2023 take 1 tablet by mouth every twelve hours busPIRone (BUSPAR) 10 mg tablet Take 1 tablet by mouth every 12 hours. 0 05/20/2023 Active Start: 04-21-2023 take 1 tablet by rossana th twice daily busPIRone 10 mg Tab 10 mg = 1 tab(s), Oral, BID, # 60 tab(s), Refills(s) 5, Pharmacy: [facility]/pharmacy #[id number], 158, cm, 04/21/23 8:07:00 EST, Height/Length Dosing, 86, kg, 04/21/23 8:07:00 EST, Weight Dosing Start Date: 04/21/23 Status: Ordered Start: 02-18-2023 take 1 tablet by rossana th in the morning busPIRone (Buspar) 5 MG tablet Take 5 mg by mouth in the morning and 5 mg before bedtime. 0 02/18/2023 Active Comment on above: Take 1 tablet by rossana th every 12 hours. letrozole 2.5 mg oral tablet (19 sources) Aromatase Inhibitor Start: 07-09-2023 take 2 tablets by mouth once daily letrozole (FEMARA) 2.5 mg tablet Take 2 tablets by mouth once daily. 0 07/09/2023 Active Start: 09-29-2022 Femara 2.5 mg Tab Refills(s) 0 Start Date: 09/29/22 Status: Ordered take 1 tablet by rossana th every twenty-four hours Femara 2.5 MG 1 tablet Orally Once a day Active Comment on above: Take 2 tablets by mo [facility] once daily. levothyroxine sodium 0.075 mg oral tablet (20 sources) l-Thyroxine Start: take 1 tablet by mouth once levothyroxine (SYNTHROID) 75 mcg tablet Take 1 tablet by mouth every afternoon. 0 05/20/2023 Active Start: 04-21-2023 take 1 tablet by rossana th once daily levothyroxine 75 mcg (0.075 mg) Tab 75 mcg = 1 tab(s), Oral, Daily, # 30 tab(s), Refills(s) 5, Pharmacy: [facility]/pharmacy #[id number], 158, cm, 04/21/23 8:07:00 EST, Height/Length Dosing, 86, kg, 04/21/23 8:07:00 EST, Weight Dosing Start Date: 04/21/23 Status: Ordered Start: 01-07-2023 take 1 tablet by rossana th once daily levothyroxine 88 mcg (0.088 mg) Tab 88 mcg = 1 tab(s), Oral, Daily, # 30 tab(s), Refills(s) 5, Pharmacy: [facility]/pharmacy #[id number], 158, cm, 01/07/23 10:49:00 EDT, Height/Length Dosing, 86.3, kg, 01/07/23 10:49:00 EDT, Weight Dosing Start Date: 01/07/23 Status: Ordered Start: 11-21-2022 take 1 tablet by rossana once daily levothyroxine 100 mcg (0.1 mg) Tab 100 mcg = 1 tab(s), Oral, Daily, # 90 tab(s), Refills(s) 4, Pharmacy: [facility]/pharmacy #[id number], 158, cm, 09/29/22 9:07:00 EDT, Height/Length Dosing, 92.3, kg, 09/29/22 9:07:00 EDT, Weight Dosing Start Date: 11/21/22 Status: Ordered Start: 09-29-2022 take 1 tablet by rossana th once daily levothyroxine 100 mcg (0.1 mg) Tab 100 mcg = 1 tab(s), Oral, Daily, # 30 tab(s), Refills(s) 0 Start Date: 09/29/22 Status: Ordered take 1 tablet by rossana th before mealtime levothyroxine (Synthroid, Levoxyl) 100 MCG tablet Take 100 mcg by mouth in the morning. Take before meals. 0 Active take 1 tablet by rossana th once daily in the morning Levothroid 100 MCG 1 tablet in the morning on an empty stomach Orally Once a day Active Comment on above: Take 1 tablet by rossana th every afternoon. metFORMIN hydrochloride 500 mg oral tablet (20 sources) Biguanide Start: take 1 tablet by mouth twice daily metFORMIN (GLUCOPHAGE) 500 mg tablet Take 500 mg by mouth two times a day. 0 11/21/2022 Active take 1 tablet by rossana th every twenty-four hours metFORMIN HCl 500 MG 1 tablet with a meal Orally Once a day Active Comment on above: Take 500 mg by mouth two times a day. 8 hr methylphenidate hydrochloride 20 mg extended release oral tablet (15 sources) Central Nervous System Stimulant Start: 06-09-20 take 1 tablet by mouth once methylphenidate ER (METADATE ER) 20 mg ER tablet Take 1 tablet by mouth every afternoon. 0 06/09/2023 Active Start: 05-12-2023 take 1 tablet by rossana th once daily methylphenidate 20 mg ER Tab 20 mg = 1 tab(s), Oral, Daily, # 30 tab(s), Refills(s) 0, Pharmacy: [facility]/pharmacy #[id number], 158, cm, 04/21/23 8:07:00 EST, Height/Length Dosing, 86, kg, 04/21/23 8:07:00 EST, Weight Dosing Start Date: 05/12/23 Status: Ordered Start: 04-08-2023 take 1 tablet by rossana th once daily methylphenidate 20 mg ER Tab 20 mg = 1 tab(s), Oral, Daily, # 30 tab(s), Refills(s) 0, Pharmacy: [facility]/pharmacy #[id number], 158, cm, 02/18/23 10:07:00 EDT, Height/Length Dosing, 85.9, kg, 02/18/23 10:07:00 EDT, Weight Dosing Start Date: 04/08/23 Status: Ordered Start: 01-05-2023 take 1 tablet by rossana once daily methylphenidate 20 mg ER Tab 20 mg = 1 tab(s), Oral, Daily, # 30 tab(s), Refills(s) 0, [id number], 158, cm, 02/18/23 10:07:00 EDT, Height/Length Dosing, 85.9, kg, 02/18/23 10:07:00 EDT, Weight Dosing Start Date: 02/18/23 Status: Ordered Start: 12-03-2022 take 1 tablet by rossana once daily methylphenidate 10 mg oral tablet, extended release 10 mg = 1 tab(s), Oral, Daily, # 30 tab(s), Refills(s) 0, [id number], 158.3, cm, 12/03/22 11:34:00 EDT, Height/Length Dosing, 87.3, kg, 12/03/22 11:34:00 EDT, Weight Dosing Start Date: 12/03/22 Status: Ordered Comment on above: Take 1 tablet by rossana every afternoon. Triamcinolone (2 sources) Corticosteroid Start: 08-15-2021 Kenalog [...] Translations: [Attention-deficit hyperactivity disorder, unspecified type] Onset: 04-17-2023 Chronic Fluid and electrolyte disorders (11 sources) Hypokalemia; Translations: [Hypokalemia] Onset: 01-07-2023 Episodic Immunizations and screening for infectious disease (2 sources) Encounter for screening for human papillomavirus (HPV); Translations: [Vaccination given] Onset: 09-01-2022 Episodic Osteoarthritis (6 sources) Degenerative joint disease of ankle AND/OR foot; Translations: [Primary osteoarthritis, left ankle and foot] Onset: 07-13-2023 07-13-2023 Chronic Other congenital anomalies (8 sources) Other specified congenital deformities of feet; 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, unspecified] Onset: 08-15-2021 Resolved: 08-15-2021 Chronic Other congenital anomalies (2 sources) Congenital deformity of foot; 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] Onset: 09-29-2022 Chronic Other connective tissue disease (1 source) H/O: musculoskeletal disease; Translations: [Personal history of other diseases of the musculoskeletal system and connective tissue] Onset: 09-29-2022 Episodic Other connective tissue disease (3 sources) Pain in both feet; Translations: [Pain in right foot] Onset: 07-13-2023 07-13-2023 Episodic Other connective tissue disease (1 source) Pain in right foot; Translations: [Bilateral foot pain] Onset: 07-13-2023 Episodic Other connective tissue disease (1 source) Pain in left foot; Translations: [Bilateral foot pain] Onset: 07-13-2023 Episodic Other endocrine disorders (15 sources) Polycystic ovary syndrome; Translations: [Polycystic ovarian syndrome] Onset: 09-29-2022 Chronic Other injuries and conditions due to external causes (1 source) H/O: injury; Translations: [Personal history of other (healed) physical injury and trauma] Onset: 09-29-2022 Episodic Other nervous system disorders (1 source) 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; Translations: [Personal history of other diseases of the nervous system and sense organs] Onset: 09-29-2022 Episodic Other nervous system disorders (14 sources) H/O: migraine 09-29-2022 Episodic Other non-traumatic joint disorders (1 source) Ankle joint effusion; Translations: [Effusion, unspecified ankle] Onset: 06-24-2023 Episodic Other non-traumatic joint disorders (1 source) Pain in right ankle and joints of right foot; Translations: [Bilateral ankle pain, unspecified chronicity] Onset: 07-13-2023 Episodic Other non-traumatic joint disorders (1 source) Pain in left ankle and joints of left foot; Translations: [Bilateral ankle pain, unspecified chronicity] Onset: 07-13-2023 Episodic Other nutritional; endocrine; and metabolic disorders [...] 02-18-2023 Episodic Other skin disorders (8 sources) [place] - lesion 02-18-2023 Episodic Other skin disorders [...] sources) Palpitations; Translations: [PALPITATIONS] Onset: 05-22-2022 Episodic Diabetes mellitus without complication (1 source) Prediabetes; Translations: [Prediabetes] Onset: 11-10-2022 Resolved: 11-10-2022 11-10-2022 Episodic Female infertility (5 sources) Female infertility associated with anovulation; Translations: [Anovulation] Onset: 10-16-2022 Resolved: 11-10-2022 Chronic Menopausal disorders (1 source) Hormone replacement therapy; Translations: [HORMONE REPLACEMENT THERAPY] Onset: 07-01-2022 Episodic Menstrual disorders (1 source) Dysmenorrhea; Translations: [Dysmenorrhea, unspecified] Onset: 11-10-2022 Resolved: 11-10-2022 11-10-2022 Chronic Mood disorders (18 sources) Mild recurrent major depression; Translations: [Major depressive disorder, recurrent, mild] Onset: 09-29-2022 Resolved: 11-10-2022 Chronic Nutritional deficiencies (1 source) Vitamin D deficiency; Translations: [Vitamin D deficiency, unspecified] Onset: 11-10-2022 Resolved: 11-10-2022 11-10-2022 Chronic Other aftercare (1 source) 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; Translations: [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 DX] Onset: 07-01-2022 Episodic Other connective tissue disease (1 source) Other enthesopathies, not elsewhere classified Onset: 08-15-2021 Resolved: 08-15-2021 Episodic Other connective tissue disease (16 sources) Fibromyalgia; Translations: [Fibromyalgia] Onset: 09-29-2022 Resolved: 11-10-2022 Episodic Other endocrine disorders (4 sources) Endocrine disorder, unspecified; Translations: [ENDOCRINE DISORDER UNSPECIFIED] Onset: 10-24-2021 Episodic Other non-traumatic joint disorders (1 source) Pain in left shoulder Onset: 08-15-2021 Resolved: 08-15-2021 Episodic Other nutritional; endocrine; and metabolic disorders (1 source) Morbid obesity; Translations: [Morbid (severe) obesity due to excess calories] Onset: 11-10-2022 Resolved: 11-10-2022 11-10-2022 Chronic Residual codes; unclassified (4 sources) Procedure and treatment not carried out due to patient leaving prior to being seen by health care provider; Translations: [PROC AND TX NOT CARRIED OUT PT LEAVE] Onset: 05-24-2022 Episodic Unclassified (1 source) Cough R05.9 Onset: 11-15-2021 Resolved: 11-15-2021 Viral infection (1 source) COVID-19 Onset: 11-15-2021 Resolved: 11-15-2021 Results Test Name Value Interpretation Reference Range Facil ity KETTYon 08-03-2023 CNOV Office Visit (LOORRM ) DOMINIQUE LLAMAS ([id number]) 1985 F Date Time Provider Department 08/03/23 3:30 PM CAST TECH ZOE CANO During your visit today, we recorded the following information about you: Antonio Moreno Cast Tech 08/03/2023 3:47 PM Signed Ms. Llamas has been informed that the supervising physician today is DOMINICK Baker. I am carrying out the treatment plan of Dr. Carcamo. Patient in today for scheduled appointment. Cast removed. Left leg cleansed with Cavilon. Applied A Short Leg Weightbearing Cast to the left leg. Instructions on cast care given. Will f/u as scheduled/prn. SHAKIRA Mejía Referring Provider: EVELYNE CARCAMO [[id number]] Allergies As of Date: 08/03/2023 Noted Allergy Reaction ZIPRASIDONE 11/10/2022 10 - Anaphylaxis Comments: Nima Date Reviewed: Never Reviewed Primary Visit Diagnosis:Club foot of both lower extremities [Q66.89] Prescriptions as of 08/03/2023 - albuterol HFA (PROVENTIL HFA, VENTOLIN HFA) 90 mcg/actuation inhaler Inhale 1 Puff as instructed as needed. - busPIRone (BUSPAR) 10 mg tablet Take 1 tablet by mouth every 12 hours. - DULoxetine (CYMBALTA) 30 mg capsule Take 1 capsule by mouth once daily. - letrozole (FEMARA) 2.5 mg tablet Take 2 tablets by mouth once daily. - levothyroxine (SYNTHROID) 75 mcg tablet Take 1 tablet by mouth every afternoon. - metFORMIN (GLUCOPHAGE) 500 mg tablet Take 500 mg by mouth two times a day. - methylphenidate ER (METADATE ER) 20 mg ER tablet Take 1 tablet by mouth every afternoon. Problem List As Of Date 08/03/2023 Noted Resolved Club foot of both lower extremities [Q66.89] 07/13/2023 DJD (degenerative joint disease), ankle and fe*07/13/2023 DJD (degenerative joint disease), ankle and fe*07/13/2023 Pain in both feet [M79.671, M79.672] 07/13/2023 Encounter Status:Closed by ANTONIO MORENO on 08/03/23 Normal [facility] ALL PROGESTERONEon 4 PROGESTERONE 23.8 ng/mL . [facility] Comment on above: Follicular phase 0.1 - 0.9 Luteal phase 1.8 - 23.9 Ovulation phase 0.1 - 12.0 First trimester 11.0 - 44.3 Second trimester 25.4 - 83.3 Third trimester 58.7 - 214.0 Postmenopausal 0.0 - 0.1 Performed at: - [facility] [id number] Seamer Operator: Chapin Pulido PhD, Phone: [phone] [facility]23 Family Medicine Office/Clinic Note Chief Complaint F/U HPI Staff Patient here to F/U on Medications and ankle. ALEXANDER 06/25/23 Labs and X ray don e 06/25/23 Patient states she is seeing Dr. Carcamo at for her foot / in cast now. Patient states she had a syncope episode this past Thursday from low blood sugar. History of Present Illness 38 Years old Female here to f/u for 3 month f/u med review Social: The patient is ; Xiang since 2021 The patient is on disability for her bilat club feet The patient has 1 children; 12 miscarriages Screening: Colon Cancer screening: UPPER AND LOWER done in [place] with a UNCLEAR f/u recommended; this patient DOES have family history of colon cancer IN HER MOTHER - LIKELY done in 2020, in a surgery center connected to [facility] Breast cancer screening: START at age 40; this patient DOES have a family history of breast cancer Pap smear: 2022 DEXA: age Labs: Jun 2023 List of Providers: Ortho - Dr. Carcamo - [facility] [employer] Instructor - Dr. Lovell ENT - Dr. Oquendo - [facility] staff / Chief Complaint confirmed with the patient Interval history: gastric erosions found on EGD apprx 3 years ago To go instructions: Decrease levothyroxine from 75mcg to 50mcg Labs for TSH in 4 weeks No other changes pain in her foot is about the same From last note: (tag) CC: Symptoms started 3 weeks ago Since then, the symptoms have remained about the same Denies injury all I did was clean my house Also experiencing tenderness to the distal fibula; mild ecchymosis surrounding the lateral maleolus unclear if anything makes it better walking on it makes it worse The patient has tried LISA wrap, splint, tylenol, aspercreme which provided no relief This has never happened before is it just fibromyalgia? 06/07/23 - seen in the [facility] had symptoms for 6-7 days prior I waited to see if it would get better on it's own [1] the only thing that's abnormal is the thyroid - she's on too much medication I have decreased her from 88mcg to 75mcg and recommend that she re-check her levels in 4 weeks [2] Review of Systems PHQ Score Initial Depression Screen Score: 1 SCORE Physical Exam Vitals & Measurements HR: 86(Peripheral) BP: 134/92 SpO2: 97% HT: 61 in HT: 155 cm WT: 86.8 kg WT: 190.96 lb BMI: 36.13 PHYSICAL EXAM Constitutional: Vital signs reviewed; FARHADDOMINIQUE Manjinder is well nourished, no acute distress Lungs: Clear to auscultation, non-labored respiration - expansion is symmetric Heart: Normal rate and rhythm, normal peripheral perfusion Lymph: Deferred Abd: Deferred : Deferred MSK: boot, left foot - antalgic gait Skin: Warm, dry Neurologic: Awake, alert and oriented Psychiatric: Cooperative, appropriate mood and affect, judgement is appropriate Assessment/Plan 1. Ankle swelling (M25.473: Effusion, unspecified ankle) Stable continue boot f/u with podiatry 2. Bilateral club feet (Q66.89: Other specified congenital deformities of feet) likely plays a role/ complicates in #1 3. Fibromyalgia (M79.7: Fibromyalgia) Chronic Stable No changes today 4. ADHD (F90.9: Attention-deficit hyperactivity disorder, unspecified type) Impression: Chronic Well controlled ADHD On methylphenidate 20 mg Coping is appropriate The patient describes side effects Plan: Continue methylphenidate Discussed the rationale for reviewing Driven to Distraction in the future or reading one of Dr. Baig's other books I certify that I have reviewed the OARRS report and all PDMP information in this chart on this visit date Emphasized again that long-term treatment plan includes cognitive behavioral therapy specific for ADHD Discussed the importance of f/u q 3months f/u 3 months 5. Hypothyroidism (E03.9: Hypothyroidism, unspecified) see instructions Ordered: levothyroxine, 50 mcg = 1 tab(s), Oral, Daily, # 30 tab(s), Refills(s) 5, Pharmacy: [facility]/pharmacy #[id number], 155, cm, 07/21/23 8:08:00 EST, Height/Length Dosing, 86.8, kg, 07/21/23 8:08:00 EST, Weight Dosing TSH With T4fr Reflex 6. Screening for diabetes mellitus (Z13.1: Encounter for screening for diabetes mellitus) The patient is over age 35, under age 70, with a BMI > 25 and has never been screened for diabetes previously (USPSTF and ADA guidelines) A1c order placed today Discussed what the results of 5.7-6.4% mean and what it means to be above 6.5% Will d/w pt at f/u Adult BMI 36.0-36.9 kg/sq m (Z68.36: Body mass index [BMI] 36.0-36.9, adult) Total time spent TODAY preparing the chart, face to face with the patient and family and time spent documenting, reviewing, and ordering tests was 30 mins. Patient was counseled on the above diagnosis and treatment, all questions were answered and patient agrees to adhere to the plan above. Risk and benefits of appropriate procedures and medications were reviewed as well with patient, who voiced understanding and agreement. Patient was counseled o (more content not included)... [facility] Comment on above: Result Comment: Elec tronically Signed By: Clint Ortiz DO\Date and Time Signed: 07/24/23 18:47 EST TOLUOVon 07-21-2023 CNOV Office Visit (LOORRM ) DOMINIQUE LLAMAS ([id number]) 1985 F Date Time Provider Department 07/21/23 3:30 PM CAST TECH ZOE ANDRE During your visit today, we recorded the following information about you: Antonio Moreno Cast Tech 07/21/2023 3:41 PM Signed Ms. Llamas has been informed that the supervising physician today is Dr. Lynch. I am carrying out the treatment plan of Dr. Carcamo. Patient came in today c/o of Cast being loose. Cast was removed and skin inspected. Skin appeared normal. Cast was reapplied. Patient instructed follow-up with doctor during next scheduled appointment/prn. SHAKIRA Mejía Allergies As of Date: 07/21/2023 Noted Allergy Reaction ZIPRASIDONE 11/10/2022 10 - Anaphylaxis Comments: Niam Date Reviewed: Never Reviewed Primary Visit Diagnosis:Club foot of both lower extremities [Q66.89] Prescriptions as of 07/21/2023 - albuterol HFA (PROVENTIL HFA, VENTOLIN HFA) 90 mcg/actuation inhaler Inhale 1 Puff as instructed as needed. - busPIRone (BUSPAR) 10 mg tablet Take 1 tablet by mouth every 12 hours. - DULoxetine (CYMBALTA) 30 mg capsule Take 1 capsule by mouth once daily. - letrozole (FEMARA) 2.5 mg tablet Take 2 tablets by mouth once daily. - levothyroxine (SYNTHROID) 75 mcg tablet Take 1 tablet by mouth every afternoon. - metFORMIN (GLUCOPHAGE) 500 mg tablet Take 500 mg by mouth two times a day. - methylphenidate ER (METADATE ER) 20 mg ER tablet Take 1 tablet by mouth every afternoon. Problem List As Of Date 07/21/2023 Noted Resolved Club foot of both lower extremities [Q66.89] 07/13/2023 DJD (degenerative joint disease), ankle and fe*07/13/2023 DJD (degenerative joint disease), ankle and fe*07/13/2023 Pain in both feet [M79.671, M79.672] 07/13/2023 Encounter Status:Closed by ANTONIO MORENO on 07/21/23 [facility] Patient Educationon 07-21-19 [facility] Attention Deficit Hyperactivity Disorder, Adult Attention deficit hyperactivity disorder (ADHD) is a mental health disorder that starts during childhood. For many people with ADHD, the disorder continues into the adult years. Treatment can help you manage your symptoms. There are three main types of ADHD: ? Inattentive. With this type, adults have difficulty paying attention. This may affect cognitive abilities. ? Hyperactive-impulsive . With this type, adults have a lot of energy and have difficulty controlling their behavior. ? Combination type. Some people may have symptoms of both types. What are the causes? The exact cause of ADHD is not known. Most experts believe a person's genes and environment possibly contribute to ADHD. What increases the risk? The following factors may make you more likely to develop this condition: ? Having a first-degree relative such as a parent, brother, or sister, with the condition. ? Being born before 37 weeks of (prematurely) or at a low weight. ? Being born to a mother who smoked tobacco or drank alcohol during . ? Having experienced a brain injury. ? Being exposed to lead or other toxins in the womb or early in life. What are the signs or symptoms? Symptoms of this condition depend on the type of ADHD. Symptoms of the inattentive type include: ? Difficulty paying attention or following instructions. ? Often making simple mistakes. ? Being disorganized. ? Avoiding tasks that require time and attention. ? Losing and forgetting things. Symptoms of the hyperactive-impulsive type include: ? Restlessness. ? Talking out of turn, interrupting others, or talking too much. ? Difficulty with: ? Sitting still. ? Feeling motivated. ? Relaxing. ? Waiting in line or waiting for a turn. People with the combination type have symptoms of both of the other types. In adults, this condition may lead to certain problems, such as: ? Keeping jobs. ? Performing tasks at work. ? Having stable relationships. ? Being on time or keeping to a schedule. How is this diagnosed? This condition is diagnosed based on your current symptoms and your history of symptoms. The diagnosis can be made by a health care provider such as a primary care provider or a mental health health care specialist. Your health care provider may use a symptom checklist or a behavior rating scale to evaluate your symptoms. Your health care provider may also want to talk with people who have observed your behaviors throughout your life. How is this treated? This condition can be treated with medicines and behavior therapy. Medicines may be the best option to reduce impulsive behaviors and improve attention. Your health care provider may recommend: ? Stimulant medicines. These are the most common medicines used for adult ADHD. They affect certain chemicals in the brain (neurotransmitters) and improve your ability to control your symptoms. ? A non-stimulant medicine. These medicines can also improve focus, attention, and impulsive behavior. It may take weeks to months to see the effects of this medicine. Counseling and behavioral management are also important for treating ADHD. Counseling is often used along with medicine. Your health care provider may suggest: ? Cognitive behavioral therapy (CBT). This type of therapy teaches you to replace negative thoughts and actions with positive thoughts and actions. When used as part of ADHD treatment, this therapy may also include: ? Coping strategies for organization, time management, impulse control, and stress reduction. ? Mindfulness and meditation training. ? Behavioral management. You may work with a student success coach who is specially trained to help people with ADHD manage and organize activities and function more effectively. Follow these instructions at home: Medicines ? Take [id number] and prescription medicines only as told by your health care provider. ? Talk with your health care provider about the possible side effects of your medicines and how to manage them. Alcohol use ? Do not drink alcohol if: ? Your health care provider tells you not to drink. ? You are , may be , or are planning to become . ? If you drink alcohol: ? Limit how much you use to: ? 0?1 drink a day for women. ? 0?2 drinks a day for men. ? Know how much alcohol is in your drink. In the [place] one drink equals one 12 oz bottle of beer (355 mL), one 5 oz glass of wine (148 mL), or one 1? oz glass of hard liquor (44 mL). Lifestyle ? Do not use illegal drugs. ? Get enough sleep. ? Eat a healthy diet. ? Exercise regularly. Exercise can help to reduce stress and anxiety. General instructions ? Learn as much as you can about adult ADHD, and work closely with your health care providers to find the treatments that work best for you. ? Follow th (more content not included)... [facility] Christ 07-20-2023 EMMANUELLE Telephone (INDIRAORRM) DOMINIQUE LLAMAS ([id number]) 1985 F Date Time Provider Department 07/20/23 EVELYNE CARCAMO During your visit today, we recorded the following information about you: Cheyenne Campbell 07/20/2023 10:11 AM Signed Dominique is calling Evelyne Carcamo DPM today stating that her cast was starting to be loose on Thursday and her ankle started to hurt. She want to know if she can come in before her scheduled cast appointment on 08/03/23 to have cast changed. Please advise. Patient has been identified by name and birthdate. Duration of symptoms: 2 days Person calling: self Call patient at: on cell [phone] (home) Was an appointment scheduled: No Closing statement: Symptom Call: Thank you for calling [facility], your call is very important. A nurse will call in approximately 2-4 hours during business hours. If this is an emergency, please contact 911. Cheyenne Owusu Pss Shahram Lee OCCA 07/20/2023 11:23 AM Signed Called patient and offered a same day appointment. Patient requested to come in tomorrow due to another appointment. Patient was scheduled accordingly. Informed patient she can call the scheduling line at anytime and request a cast room appointment and they should be able to assist. Patient does not need an appointment with the doctor. Allergies As of Date: 07/20/2023 Noted Allergy Reaction ZIPRASIDONE 11/10/2022 10 - Anaphylaxis Comments: Nima Date Reviewed: Never Reviewed Reason for Visit: Patient Request [[id number]] Prescriptions as of 07/20/2023 - albuterol HFA (PROVENTIL HFA, VENTOLIN HFA) 90 mcg/actuation inhaler Inhale 1 Puff as instructed as needed. - busPIRone (BUSPAR) 10 mg tablet Take 1 tablet by mouth every 12 hours. - DULoxetine (CYMBALTA) 30 mg capsule Take 1 capsule by mouth once daily. - letrozole (FEMARA) 2.5 mg tablet Take 2 tablets by mouth once daily. - levothyroxine (SYNTHROID) 75 mcg tablet Take 1 tablet by mouth every afternoon. - metFORMIN (GLUCOPHAGE) 500 mg tablet Take 500 mg by mouth two times a day. - methylphenidate ER (METADATE ER) 20 mg ER tablet Take 1 tablet by mouth every afternoon. Problem List As Of Date 07/20/2023 Noted Resolved Club foot of both lower extremities [Q66.89] 07/13/2023 DJD (degenerative joint disease), ankle and fe*07/13/2023 DJD (degenerative joint disease), ankle and fe*07/13/2023 Pain in both feet [M79.671, M79.672] 07/13/2023 Encounter Status:Closed by SHAHRAM LEE on 07/20/23 [facility] CNOVon 07-13-2023 CNOV Office Visit (LOORRM ) FARHADDOMINIQUE Whipple ([id number]) 1985 F Date Time Provider Department 07/13/23 3:00 PM CAST TECH ZOE ANDRE During your visit today, we recorded the following information about you: Antonio Moreno Cast Tech 07/13/2023 3:22 PM Signed Applied A Short Leg Weightbearing Cast to the left leg. Instructions on cast care given. A medium Cast Shoe was dispensed. Will f/u as scheduled/prn. SHAKIRA Mejía Referring Provider: EVELYNE CARCAMO [[id number]] Allergies As of Date: 07/13/2023 Noted Allergy Reaction ZIPRASIDONE 11/10/2022 10 - Anaphylaxis Comments: Nima Date Reviewed: Never Reviewed Primary Visit Diagnosis:Club foot of both lower extremities [Q66.89] Prescriptions as of 07/13/2023 - albuterol HFA (PROVENTIL HFA, VENTOLIN HFA) 90 mcg/actuation inhaler Inhale 1 Puff as instructed as needed. - busPIRone (BUSPAR) 10 mg tablet Take 1 tablet by mouth every 12 hours. - DULoxetine (CYMBALTA) 30 mg capsule Take 1 capsule by mouth once daily. - letrozole (FEMARA) 2.5 mg tablet Take 2 tablets by mouth once daily. - levothyroxine (SYNTHROID) 75 mcg tablet Take 1 tablet by mouth every afternoon. - metFORMIN (GLUCOPHAGE) 500 mg tablet Take 500 mg by mouth two times a day. - methylphenidate ER (METADATE ER) 20 mg ER tablet Take 1 tablet by mouth every afternoon. Problem List As Of Date 07/13/2023 Noted Resolved Club foot of both lower extremities [Q66.89] 07/13/2023 DJD (degenerative joint disease), ankle and fe*07/13/2023 DJD (degenerative joint disease), ankle and fe*07/13/2023 Pain in both feet [M79.671, M79.672] 07/13/2023 Encounter Status:Closed by ANTONIO MORENO on 07/13/23 [facility] CNOV Office Visit (LOORRM ) DOMINIQUE LLAMAS ([id number]) 1985 F Date Time Provider Department 07/13/23 2:15 PM EVELYNE CARCAMO During your visit today, we recorded the following information about you: Evelyne Carcamo DPM 07/13/2023 3:50 PM Signed Patient Visit for Dominique Llamas 1985 38 year old female SUBJECTIVE: Chief Complaint: Patient presents with: Left Foot - New, Pain Right Ankle - New, Pain Left Ankle - New, Pain Right Foot - New, Pain Pain Scales: Verbal (Numeric Rating or Visual Analog Scale) Pain Level: 7 Pain Location: (bilateral foot/ankle) Description: Sharp Duration Amount of Time: 9 Duration Units: Weeks Frequency: Continuous Intervention/Comfort measure: Heat, Medication Comments: She is here for bilateral foot and ankle pain. No new or recent injury. Pain increases with activity and cold. Additional HPI: History of bilateral club foot surgery x 2 - 1983, 86 Pain worse with activity throughout childhood Now with flare of symptoms LEFT hind foot worse than RIGHT Difficulty walking PCP: No primary care provider on file. No past medical history on file. Current Outpatient Medications Medication Sig metFORMIN (GLUCOPHAGE) 500 mg tablet Take 500 mg by mouth two times a day. albuterol HFA (PROVENTIL HFA, VENTOLIN HFA) 90 mcg/actuation inhaler Inhale 1 Puff as instructed as needed. busPIRone (BUSPAR) 10 mg tablet Take 1 tablet by mouth every 12 hours. DULoxetine (CYMBALTA) 30 mg capsule Take 1 capsule by mouth once daily. letrozole (FEMARA) 2.5 mg tablet Take 2 tablets by mouth once daily. levothyroxine (SYNTHROID) 75 mcg tablet Take 1 tablet by mouth every afternoon. methylphenidate ER (METADATE ER) 20 mg ER tablet Take 1 tablet by mouth every afternoon. No current facility-administered medications for this visit. ALLERGIES Allergen Reactions Ziprasidone Anaphylaxis Geodon No past surgical history on file. No family history on file. Tobacco Use: Not on file REVIEW OF SYSTEMS: The remainder of the ROS was reviewed with the patient and is negative except as noted. OBJECTIVE: General: Pleasant in no acute distress Lower extremity exam: Vascular exam: Normal vascular exam, palpable pluses with brisk capillary fill Neurological exam: Normal neurological exam, gross epicritic sensation intact Dermatological exam: Well healed scars from previous surgery Other Normal exam without rashes or lesions of skin. No evidence of evidence of petechiae, purpura, telangiectasia Musculoskeletal exam: Limited range of motion ankle bilateral Intact mid tarsal joint RIGHT FOOT Some limited range of motion mid tarsal joint LEFT FOOT with forefoot varus / flexible Eversion bilateral hind foot with loss of motion talo calcaneal joint Tenderness to palpation sinus tarsi RIGHT Tenderness to palpation posterior LEFT hind foot with prominence soft tissue and bone inferior to lateral malleolus LABS: Most recent labs reviewed LABORATORY STUDIES: No results for input(s): HB , WBC , PLT , WSR , CRP , CCPABG , RF , INR , CREATININE , ALB , PROT , URICACID , HBA1C , VITD25 in the last 85812 hours. X-ray deformity foot and ankle consistent with clubfoot Flat top talus, severe degenerative joint disease talo calcaneal joint , degenerative joint disease mid tarsal joint ASSESSMENT: Q66.89 Club foot of both lower extremities (primary encounter diagnosis) M19.072 DJD (degenerative joint disease), ankle and foot, left M19.071 DJD (degenerative joint disease), ankle and foot, right M79.671, M79.672 Pain in both feet PLAN: Explained to the patient etiology and treatment plan. Treatment options discussed at length Risks Benefits Alternatives relative to procedure discussed SLWC (Short Leg Walking Cast ) applied to LEFT lower extremity - per patient request , most symptomatic side: Due to the patients musculoskeletal symptoms various treatment options were discussed. The risks and benefits of cast immobilization including but not limited to the risk of Deep Venous Thrombosis, nerve injury, non resolution of the sypmtoms, the need for reduced activity with the cast, the importance of keeping the affected lower extremity elevated to chest level while at rest and to avoid having the cast dependent for extended periods of time were discussed. The patient understands that my recommendation is to not drive due to potential risks of driving with a cast. The patient also understands that they should use a cane, crutches, walker, or wheel chair or other supportive device as necessary to allow for reduction / resolution of symptoms. The patient understands that if they walk excessively in the cast that the treatment will be much less likely to be successful. Following a discussion of all risks and benefits the patient requested to proceed wit (more content not included)... [facility] XR ANKLE 3V AP/LAT/OBL BILon 07-13-2023 XR ANKLE 3V AP/LAT/OBL REENA * * *Final Report* * * DATE OF EXAM: Jul 13 2023 2:17PM LZX [id number] - XR ANKLE 3V AP/LAT/OBL REENA / PROCEDURE REASON: multiple diagnoses * * * * Physician Interpretation * * * * EXAMINATION / TECHNIQUE: XR ANKLE 3V AP/LAT/OBL REENA, XR FOOT 3V AP/LAT/OBL REENA PATIENT/TECHNOLOGIST PROVIDED HISTORY: chronic bilateral lateral ankle pain and bilateral foot pain. history of bilateral club feet CLINICAL INFORMATION ( PROVIDED BY ORDERING CLINICIAN) : Bilateral ankle pain, unspecified chronicity Bilateral ankle pain, unspecified chronicity COMPARISON: None RESULT: Severe bilateral hindfoot valgus. Mild osteoarthritis at the ankle joints, with joint space narrowing more prominent medially on the right and laterally on the left. There is an incompletely assessed degree of subtalar degenerative changes. Mild subchondral degenerative changes at the talonavicular joints. No acute fracture or dislocation. There are calcification at the Achilles approximately 4 cm above the Achilles insertion on the left suggesting chronic Achilles tendinosis. IMPRESSION: Severe bilateral hindfoot valgus. Degenerative changes, as described. Findings suggesting chronic left Achilles tendinosis. Pre Algebra Teacher: ALEXI Transcribe Date/Time: Jul 13 2023 2:49P Dictated by : HECTOR KRUSE MD This examination was interpreted and the report reviewed and electronically signed by: SELIN RIGGS MD on Jul 13 2023 5:42PM EST [id number] [facility] XR FOOT 3V AP/LAT/OBL BILon 07-13-2023 XR FOOT 3V AP/LAT/OBL REENA * * *Final Report* * * DATE OF EXAM: Jul 13 2023 2:17PM LZX [id number] - XR FOOT 3V AP/LAT/OBL REENA / PROCEDURE REASON: multiple diagnoses * * * * Physician Interpretation * * * * EXAMINATION / TECHNIQUE: XR ANKLE 3V AP/LAT/OBL REENA, XR FOOT 3V AP/LAT/OBL REENA PATIENT/TECHNOLOGIST PROVIDED HISTORY: chronic bilateral lateral ankle pain and bilateral foot pain. history of bilateral club feet CLINICAL INFORMATION ( PROVIDED BY ORDERING CLINICIAN) : Bilateral ankle pain, unspecified chronicity Bilateral ankle pain, unspecified chronicity COMPARISON: None RESULT: Severe bilateral hindfoot valgus. Mild osteoarthritis at the ankle joints, with joint space narrowing more prominent medially on the right and laterally on the left. There is an incompletely assessed degree of subtalar degenerative changes. Mild subchondral degenerative changes at the talonavicular joints. No acute fracture or dislocation. There are calcification at the Achilles approximately 4 cm above the Achilles insertion on the left suggesting chronic Achilles tendinosis. IMPRESSION: Severe bilateral hindfoot valgus. Degenerative changes, as described. Findings suggesting chronic left Achilles tendinosis. Pre Algebra Teacher: ALEXI Transcribe Date/Time: Jul 13 2023 2:49P Dictated by : HECTOR KRUSE MD This examination was interpreted and the report reviewed and electronically signed by: SELIN RIGGS MD on Jul 13 2023 5:42PM EST [id number] Normal [facility] Physician Referralon 024 Physician Referral [id number] [facility] Family Medicine Office/Clini c Noteon 06-27-2023 Family Medicine Office/Clinic Note Chief Complaint Ankle swelling HPI Staff Patient here to F/U on Swollen ankle. X Rays done on 06/07/23 In [facility] on 06/07/23 Symptoms started on 31 of May after doing a lot of house cleaning. has tried elevation and heat at night and tylenol. States she contacted Ortho in [place], and stated that they only deal with ankles that are fractured. History of Present Illness 38 y/o female here to discuss left ankle swelling and bruising CC confirmed with the patient with no changes CC: Symptoms started 3 weeks ago Since then, the symptoms have remained about the same Denies injury all I did was clean my house Also experiencing tenderness to the distal fibula; mild ecchymosis surrounding the lateral maleolus unclear if anything makes it better walking on it makes it worse The patient has tried LISA wrap, splint, tylenol, aspercreme which provided no relief This has never happened before is it just fibromyalgia? 06/07/23 - seen in the [facility] had symptoms for 6-7 days prior I waited to see if it would get better on it's own Review of Systems PHQ Score Initial Depression Screen Score: 4 SCORE Physical Exam Vitals & Measurements HR: 106(Peripheral) BP: 120/90 SpO2: 99% HT: 61 in HT: 155 cm WT: 87.5 kg WT: 192.5 lb BMI: 36.42 Constitutional: Vital signs reviewed; DOMINIQUE LLAMAS is well nourished, no acute distress Lungs: Clear to auscultation, non-labored respiration - expansion is symmetric Heart: Normal rate and rhythm, normal peripheral perfusion Lymph: Deferred Abd: Deferred : Deferred MSK: antalgic gait bilat flat feet with several scars present left calf is noticeably more narrow compared to the right global tenderness (which the patient reports to be her norm) increased severity of tenderness to the distal fibula; mild ecchymosis surrounding the lateral maleolus muscle strength testing for ankle flexion, extension, eversion, inversion is symmetric; perhaps slightly weaker on the left Skin: Warm, dry Neurologic: Awake, alert and oriented Psychiatric: Cooperative, appropriate mood and affect - briefly tearful Assessment/Plan 1. Ankle swelling (M25.473: Effusion, unspecified ankle) Chronic Stable Sub-optimal control Given that this occurred after a busy day where she was more active than usual, I am concerned for stress fracture Some tenderness to percussion on exam today does support this Discussed the rationale for anti-inflammatories due to gastritis Recommend tylenol 1000mg TID Consider gabapentin 100mg qHS I do wonder if there's something else which could be going on - partial tear of a ligament vs other CRPS, once other etiologies have been ruled out, should be considered given her extensive surgery Check another xray - stress fracture may show If negative, and she continues to have symptoms, will check MRI Discussed the rationale for referral Declined today But ok to call to request at anytime in the future F/u 3-4 weeks here; sooner if needed Ordered: XR Ankle 3+ Views Left 2. Bilateral club feet (Q66.89: Other specified congenital deformities of feet) noted as it relates to #1 chart updated today s/p reconstruction Ordered: XR Ankle 3+ Views Left 3. Mild recurrent major depression (F33.0: Major depressive disorder, recurrent, mild) Chronic Stable Room for improvement Consistent with meds Discussed how MDD can have an effect on overall health Discussed the interrelation with sleep and overall mood No changes today F/u at regularly scheduled appt 4. History of foot surgery (Z98.890: Other specified postprocedural states) chart updated today bilat, two surgeries each foot does increase risk for CRPS Adult BMI 36.0-36.9 kg/sq m (Z68.36: Body mass index [BMI] 36.0-36.9, adult) Ordered: Body Mass Index (BMI) documented 3008F Current smokeless tobacco user 1035F Depression Screening Positive 3354F Influenza immunization administered or previously received 4274F Most recent diastolic blood pressure >=90 mm Hg 3080F Systolic BP <130 mm Hg (Most Recent) 3074F Total time spent TODAY preparing the chart, face to face with the patient and family and time spent documenting, reviewing, and ordering tests was 30 mins. Follow-up With When Contact Information Clint Ortiz DO, [place], PED Within 1 month [address] [place] [address] [phone] Additional Instructions: 1-2 month f/u - 20 min slot Patient Education Heat Therapy, Cjph-ul-Tomf Problem List/Past Medical History Ongoing ADHD Ankle swelling Anxiety Asthma Bilateral club feet [place] of foot Fibromyalgia History of foot surgery History of migraine History of posttraumatic stress disorder (PTSD) Hypokalemia Hypothyroidism Insulin resistance Mild recurrent major depression PCOS (polycystic ovarian syndrome) Smoker Thyroid nodule Historical No qualifying data Procedure/Surgi (more content not included)... Normal [facility] Comment on above: Result Comment: Elec tronically Signed By: Clint Ortiz DO\.br\Date and Time Signed: 06/27/23 13:57 EST XR Ankle 3+ Views Lefton XR Ankle 3+ Views Left Exam Date/Time: 06/25/2023 16:58 EST Reason for Exam: M25.473 Q66.89;Stress fracture Report IMPRESSION: NO EVIDENCE OF A FRACTURE OR OTHER BONE ABNORMALITY IN THE LEFT ANKLE. CLINICAL HISTORY: Stress fracture, M25.473 Q66.89 COMPARISON: None available. FINDINGS: AP, lateral and oblique views of the left ankle demonstrates no fracture, dislocation or other bone abnormality. Ordering Provider: Clint Ortiz FINAL REPORT Dictated: 06/26/2023 3:57 pm Yobani Black MD Signed (Electronic Signature): 06/26/2023 3:57 pm Signed by: Yobani Black MD Transcribed by: JOVANNY Technologist: MAYELIN Technical Comments Radiation Dose: Ka,r in mGy = . DAP = . Normal [facility] CHEMISTRYOrdered By: SYSTEM SYSTEM on 06-25-2023 Free T4 [Mass/Vol] 1.19 ng/dL Normal 0.58 - 1. 64 ng/dL Remisol Chem TSH Qn 0.14 m[IU]/L Low 0.34 - 5.60 mcIU/mL Remisol Chem Consent for Treatmenton 06-15 Consent for Treatment [id number] .00TIFF Normal [facility] Free T4on 06-25-2023 Free T4 [Mass/Vol] 1.19 ng/dL Normal 0.58-1.64 [facility] Comment on above: Order Comment: Free T4 added by Discern Rule due to a TSH result of <0.34 or >5.60. Performed By: #### 1 [id number], [id number] ####[facility] [address] [place] [address] Patient Educationon 06-25-19 24 Patient Education Physical Medicine an d Rehabilitation Heat Therapy Heat therapy can help ease sore, stiff, injured, and tight muscles and joints. Heat relaxes your muscles. This may help ease your pain and muscle spasms. What are the risks? If you have any of the following conditions, do not use heat therapy unless your doctor says it is okay. These conditions include: ? New bruises. ? Open wounds. ? Any of these in the area being treated: ? Healing wounds. ? Infected skin. ? Scarred skin. ? Problems with how blood moves through your body (circulation). ? Loss of feeling (numbness) in the part of your body that is being treated. ? Unusual swelling of the part of the body that is being treated. ? Blood clots. ? Diabetes. ? Heart disease. ? Cancer. ? Not being able to communicate pain. This may include young children and people who have problems with their brain function (dementia). How to use heat therapy There are different kinds of heat therapy. These include: ? Moist heat pack. ? Hot water bottle. ? Electric heating pad. ? Heated gel pack. ? Heated wrap. ? Warm water bath. Your doctor will tell you how to use heat therapy. In general, you should: 1. Place a towel between your skin and the heat source. 2. Leave the heat on for 20?30 minutes. Your skin may turn pink. 3. Take off the heat if your skin turns bright red. This is very important. If you cannot feel pain, heat, or cold, you have a greater risk of getting burned. Your doctor may also tell you to take a warm water bath. To do this: 1. Put a non-slip pad in the bathtub to prevent a fall. 2. Fill the bathtub with warm water. 3. Check the water temperature. 4. Soak in the water for 15?20 minutes, or as told by your doctor. 5. Be careful when you stand up after the bath. You may feel dizzy. 6. Pat yourself dry after the bath. Do not rub your skin to dry it. General recommendations for heat therapy ? Be careful not to burn your skin when using heat therapy. High heat or using heat for a long time can cause ibrahim. ? Do not sleep while using heat therapy. Only use heat therapy while you are awake. ? Check your skin during heat therapy. ? Do not use heat therapy if you have a new injury, especially if you have swelling on the injured area. ? Do not use heat therapy on areas of your skin that are already irritated, such as with a rash or sunburn. ? Do not use heat therapy if your skin turns bright red. Contact a doctor if: ? You have blisters, redness, swelling, or loss of feeling in the area where you use heat therapy. ? You have new pain. ? You have pain that gets worse. Summary ? Heat therapy is the use of heat to help ease sore, stiff, injured, and tight muscles and joints. ? There are different types of heat therapy. Your doctor will tell you which one to use. ? Only use heat therapy while you are awake. ? Watch your skin to make sure you do not get burned while using heat therapy. This information is not intended to replace advice given to you by your health care provider. Make sure you discuss any questions you have with your health care provider. Document Revised: 04/03/2021 Document Reviewed: 04/03/2021 [employer] Patient Education ? 2022 [employer] Normal [facility] TSH With T4fr Reflexon 06-25 TSH Qn 0.14 m[IU]/L Low 0.34-5.60 [facility] Comment on above: Performed By: #### 1 [id number], [id number] ####[facility] [address] [place] [address] Ambulatory Visit Summaryon 1 08-08-2022 Ambulatory Visit Summary DOMINIQUE LLAMAS :1985 Visit Date:06/07/2023 Ambulatory Visit Instructions Your Care Team Attending Physician - Nick TAN, Vinnie W. Primary Care Physician - Clint Ortiz DO This Is Your Medications List [facility] Prescription (permanent handicap placard) albuterol (Albuterol (Eqv-ProAir [...] AM EST With: Clint Ortiz DO Where: [facility] Jose C Normal [address] [place] [address]-\.br\ Medications\.br\ What How Much When Why Instructions\.br [...] currently receiving treatment for.\.br\ ADHD\.br\ Anxiety\.br\ Asthma\.br\ [place] of foot\.br\ Fibromyalgia\.br \ History of migraine\.br\ [...] for choosing us for your care.\.br\ \.br\ [facility] XR Ankle 3+ Views Lefton XR Ankle [...] mGy = . DAP = . Normal [facility] Medication Consenton 023 Medication Consent [id number] .00TIFF Normal [facility] Consent for Flu Vaccineon Consent for Flu Vaccine [id number] .00TIFF [facility] Family Medicine Office/Clini c Noteon 04-21-2023 Family [...] having some palpitations on the way to Lul[facility]'s appt yesterday. this has been a chronic [...] 2020 ultrasound recommend periodic ultrasound monitoring at [place] Follow-up 6 months February 18, 2023-PCP ADHD [...] BID, # 60 tab(s), Refills(s) 5, Pharmacy: [facility]/pharmacy #[id number], 158, cm, 04/21/23 8:07:00 EST, Height/Length Dosing, 86, kg, 04/21/23 8:07:00 EST, Weight Dosing 3. Thyroid nodule (E04.1: Nontoxic single thyroid nodule) Chronic Stable Established with ENT Given the lack of change compared to 2020 US, OK for patient to monitor at [facility] (for her convenience) f/u 6 months with [...] List/Past Medical History Ongoing ADHD Anxiety Asthma [place] of foot Fibromyalgia History of migraine History of posttraumatic stress disorder (PTSD) Hypokalemia Hypothyroidism Insulin resistance Mild recurrent major depression PCOS (polycystic ovarian syndrome) Smoker Thyroid nodule Historical No qualifying data Procedure/Surgical History Carpal tunnel, delivery only;, Colonoscopy, Dilation and curettage, diagnostic and/or therapeutic (nonobstetrical), Gallbladder operation. Medication (more content not included)... Normal [facility] Comment on above: Result Comment: Elec tronically Signed By: Clint Ortiz DO\Date and Time Signed: 04/21/23 08:42 EST T3 Totalon 04-21-2023 T3 [Mass/Vol] 112 ng/dL Invalid Interpretation Code 71-180 [facility] Comment on above: Result Comment: Perf ormed at: [facility] [address] [id number] PhD Ricchiuti Vincent Performed By: #### 2 423711, [id number], 6923135, 8467503, 62994181, 4062436 ####[facility] [address] [place] [address] BMPon 04-20-2023 Anion gap [Moles/Vol] 11 mmol/L Normal 6-16 [facility] Comment on above: Performed By: #### 2 250582, 83788342, 7216752, 1795369, 59794570, 9486961 ####[facility] [address] [place] [address] Calcium [Mass/Vol] 9.5 mg/dL Normal 8.9-11.1 [facility] Comment on above: Performed By: #### 2 293222, 13345770, 0435989, 8462338, 58896042, 8585696 ####[facility] [address] [place] [address] Chloride [Moles/Vol] 105 mmol/L Normal 101-111 [facility] Comment on above: Performed By: #### 2 594531, 94383347, 2676492, 6366545, 03588044, 0460783 ####[facility] [address] [place] [address] CO2 [Moles/Vol] 26 mmol/L Normal 21-31 [facility] Comment on above: Performed By: #### 2 976456, 30101243, 8384267, 9866820, 28643107, 8069813 ####[facility] [address] [place] [address] Creatinine [Mass/Vol] 0.9 mg/dL Normal 0.5-1.3 [facility] Comment on above: Performed By: #### 2 854800, 82916829, 0083474, 9743311, 45229756, 7012375 ####[facility] [address] [place] [address] Glucose [Mass/Vol] 90 mg/dL Normal 55-199 [facility] Comment on above: Result Comment: If t his glucose result represents a fasting glucose, interpretation should refer to the following reference range: 55-99 mg/dL Performed By: #### 2 967984, 12890040, 9366331, 0111816, 57718736, 4799390 ####[facility] [address] [place] [address] Potassium [Moles/Vol] 4.2 mmol/L Normal 3.5-5.3 [facility] Comment on above: Performed By: #### 2 067637, 54384026, 3401531, 5115161, 33422266, 7426427 ####[facility] [address] [place] [address] Sodium [Moles/Vol] 138 mmol/L Normal 135-145 [facility] Comment on above: Performed By: #### 2 293229, 32916921, 8211124, 4296994, 55647263, 1352063 ####[facility] [address] [place] [address] Urea nitrogen [Mass/Vol] 9 mg/dL Normal 5-21 [facility] Comment on above: Performed By: #### 2 547353, 76220875, 3985219, 6799919, 61127231, 9724074 ####[facility] [address] [place] [address] Urea nitrogen/Creatinine [Mass ratio] 10 No Units Normal 10-20 [facility] Comment on above: Performed By: #### 2 335981, 68187106, 2344030, 8367593, 84415714, 8069797 ####[facility] [address] [place] [address] CHEMISTRYOrdered By: SYSTEM SYSTEM on 04-20-2023 Anion gap [Moles/Vol] 11 mmol/L Normal 6 - 16 mEq/L [facility] Remisol Calcium [Mass/Vol] 9.5 mg/dL Normal 8.9 - 11.1 mg/dL FT Remisol Chloride [Moles/Vol] 105 mmol/L Normal 101 - 111 mmol/L FT Remisol CO2 [Moles/Vol] 26 mmol/L Normal 21 - 31 mmol/L [facility] Remisol Creatinine [Mass/Vol] 0.9 mg/dL Normal 0.5 - 1.3 mg/dL FT Remisol Free T4 [Mass/Vol] 1.27 ng/dL Normal 0.58 - 1. 64 ng/dL [facility] Remisol GFR/1.73 sq M.predicted among non-blacks MDRD (S/P/Bld) [Vol rate/Area] 84 mL/min/1.73 m2 Normal >=59mL/min/1.73 m2 [facility] Chem S Comment on above: Interpretive Data: C hronic kidney disease could be indicated at eGFR's of less than 60 mL/min/1.73m2. Kidney failure is indicated at less than 15 mL/min/1.73m2. Glucose [Mass/Vol] 90 mg/dL Normal 55 - 199 mg/dL FT Remisol Comment on above: Interpretive Data: I f this glucose result represents a fasting glucose, interpretation should refer to the following reference range: 55-99 mg/dL Magnesium [Mass/Vol] 1.8 mg/dL Normal 1.3 - 2.4 mg/dL FT Remisol Potassium [Moles/Vol] 4.2 mmol/L Normal 3.5 - 5.3 mmol/L FT Remisol Sodium [Moles/Vol] 138 mmol/L Normal 135 - 145 mmol/L FT Remisol TSH Qn 0.02 m[IU]/L Low 0.34 - 5.60 mcIU/mL FT Remisol Urea nitrogen [Mass/Vol] 9 mg/dL Normal 5 - 21 mg/dL [facility] Remisol Urea nitrogen/Creatinine [Mass ratio] 10 mg/mg Normal 10 - 20 FT Remisol Consent for Treatmenton Consent for Treatment [id number] .00TIFF Normal [facility] Free T4on 04-20-2023 Free T4 [Mass/Vol] 1.27 ng/dL Normal 0.58-1.64 [facility] Comment on above: Performed By: #### 2 846939, 58426395, 8010317, 0836906, 67215325, 2812370 ####[facility] [address] [place] [address] Magnesiumon 04-20-2023 Magnesium [Mass/Vol] 1.8 mg/dL Normal 1.3-2.4 [facility] Comment on above: Performed By: #### 2 718631, 60197107, 4269543, 6900344, 28616927, 8757834 ####[facility] [address] [place] [address] TSHon 04-20-2023 TSH Qn 0.02 m[IU]/L Low 0.34-5.60 [facility] Comment on above: Performed By: #### 2 376648, 60791475, 1941046, 3023584, 65173426, 7075901 ####[facility] [address] [place] [address] eGFRon 04-20-2023 GFR/1.73 sq M.predicted among non-blacks MDRD (S/P/Bld) [Vol rate/Area] 84 mL/min/1.73 m2 Normal >=59 [facility] Comment on above: Order Comment: Order added by Discern Expert. Result Comment: Junior Software Developer erica kidney disease could be indicated at eGFR's of less than 60 mL/min/1.73m2. Kidney failure is indicated at less than 15 mL/min/1.73m2. Performed By: #### 2 970986, 78039800, 8757813, 6739847, 03647648, 2496268 ####[facility] [address] [place] [address] Interdisciplinary Note - Soc ial Workeron 02-25-2023 Interdisciplinary Note - Biodies[employer] Technology Manager This SW made tc to patient today [...] her fridge. SW will remain available. Normal [facility] Consultation Noteon 02-21-20 Consultation Note [id number] .00CD:127 Normal [facility] Family Medicine Office/Clini c Noteon 02-19-2023 Family Medicine [...] BID, # 60 tab(s), Refills(s) 5, Pharmacy: [facility]/pharmacy #[id number], 158, cm, 02/18/23 10:07:00 EDT, Height/Length [...] reactive airway disease f/u 1 month 5. [place] of foot (L84: Corns and callosities) new to me discussed rationale for self-care vs podiatry referral deferred f/u PRN Adult BMI 34.0-34.9 kg/sq m (Z68.34: Body mass index [BMI] 34.0-34.9, adult) Ordered: Medicare Annual Visit G0438 Orders: methylphenidate, 20 mg = 1 tab(s), Oral, Daily, # 30 tab(s), Refills(s) 0, Pharmacy: [facility]/pharmacy #[id number], 158, cm, 02/18/23 10:07:00 EDT, Height/Length [...] 4004F Tobacco Use Cessation Intermediate 3-10 Minutes 11302 Total time spent TODAY preparing the chart, face to face with the patient and family and time spent documenting, reviewing, and ordering tests was 30 mins. Follow-up No qualifying data available Problem List/Past Medical History Ongoing ADHD Anxiety Asthma [place] of foot Fibromyalgia History of migraine History of posttraumatic stress disorder (PTSD) Hypokalemia Hypothyroidism (more content not included)... Normal [facility] Comment on above: Result Comment: Elec tronically [...] of clutter to prevent tripping and/or falling. [place] Advance Directives reviewed, declines additional info. Patient denies any problems with ADL?s and Instrumental ADL?s. Cognitive screening completed with memory and clock face drawing. Immunization Record reviewed with the patient. COVID vaccines have been administered x 2, immunization [...] patient, fa (more content not included)... Normal [facility] Comment on above: Result Comment: Elec tronically Signed By: lCint Ortiz DO\.br\Date and Time Signed: 02/19/23 13:29 [...] Ortiz DO This Is Your Medications List [facility] Prescription (permanent handicap placard) albuterol (Albuterol (Eqv-ProAir [...] Follow-Up Appointments Thursday 11:00 AM EDT Where: [facility] Ambulatory Visit Summary FARHAD, DOMINIQUE Dunbar :1985 Visit Date:02/18/2023 Ambulatory Visit Instructions Your [...] Ortiz DO This Is Your Medications List [facility] Prescription (permanent handicap placard) albuterol (Albuterol (Eqv-ProAir [...] Follow-Up Appointments Thursday 11:00 AM EDT Where: [facility] Jose C Normal [facility] Patient Educationon 02-19-20 23 Patient Education Mental and Behaviora [facility] Major Depressive Disorder, Adult Major depressive disorder [...] may include: ? Your personality traits. ? [place] or conditioned behaviors or thoughts or feelings [...] In the (more content not included)... Normal [facility] Screenson 02-18-2023 Screens [id number]. 00CD:127 Normal [facility] Family Medicine Office/Clini c Noteon 01-08-2023 Family [...] moving ever since youngest went back to [place] - he's turning 16 soon TSH suppressed/ [...] Daily, # 30 tab(s), Refills(s) 5, Pharmacy: [facility]/pharmacy #[id number], 158, cm, 01/07/23 10:49:00 EDT, Height/Length [...] for this handicap placard provided today Ordered: [facility] Prescription, permanent handicap placard, See Instructions, 1 EA, 11, for chronic medical condition, Supply, 158, cm, 01/07/23 10:49:00 EDT, Height/Length Dosing, 86.3, kg, 01/07/23 10:49:00 EDT, Weight Dosing Multinodular thyroid (E04.2: Nontoxic multinodular goiter) see #2 Ordered: levothyroxine, 88 mcg = 1 tab(s), Oral, Daily, # 30 tab(s), Refills(s) 5, Pharmacy: [facility]/pharmacy #[id number], 158, cm, 01/07/23 10:49:00 EDT, Height/Length Dosing, 86.3, kg, 01/07/23 10:49:00 EDT, Weight Dosing Free T4 T3 Total Thyroid Stimulating Hormone Orders: methylphenidate, 20 mg = 1 tab(s), Oral, Daily, # 30 tab(s), Refills(s) 0, Pharmacy: [facility]/pharmacy #[id number], 158, cm, 01/07/23 10:49:00 EDT, Height/Length Dosing, 8 (more content not included)... Normal [facility] Comment on above: Result Comment: Elec tronically [...] Daily, # 30 tab(s), Refills(s) 0, Pharmacy: [facility]/pharmacy #[id number], 158.3, cm, 12/03/22 11:34:00 EDT, Height/Length [...] skin: [place] (more content not included)... Normal [facility] Comment on above: Result Comment: Elec tronically Signed By: Clint Ortiz DO\.br\Date and Time Signed: 12/04/22 12:53 EDT Advance Beneficiary Notifica tionson 12-03-2022 Advance Beneficiary Notifications [id number]# 1.00CD:127 Normal [facility] Ambulatory Visit Summaryon 0 12-03-2022 Ambulatory Visit [...] By Mouth Every day ADHD Pickup at [facility]/pharmacy #[id number] Unchanged albuterol (Albuterol (Eqv-ProAir HFA) 90 [...] physician if questions or concerns Pharmacy Information [facility]/pharmacy #[id number]: [address], [place] [id number] [phone] What How Much When Why Comments Stop [...] (polycystic ovarian syndrome) Smoker Thyroid nodule Normal [facility] CHEMISTRYOrdered By: SYSTEM SYSTEM on 12-03-2022 Albumin [...] 0.03 m[IU]/L Low 0.34 - 5.60 mcIU/mL FT Remisol Urea nitrogen [Mass/Vol] 7 mg/dL Normal 5 - 21 mg/dL FT Remisol Urea nitrogen/Creatinine [Mass ratio] 9 mg/mg Low 10 - 20 FT Remisol CMPon 12-03-2022 Albumin [Mass/Vol] 4.4 g/dL Normal 3.3-5.0 [facility] Comment on above: Performed By: #### 2 708462, 5520108, 25159835, 8280753, 90784298 ####[facility] [address] [place] [address] Albumin/Globulin (S) [Mass conc ratio] 1.5 Normal 1.1-2.2 [facility] Comment on above: Performed By: #### 2 839113, 5034629, 25897132, 8572179, 05101019 ####[facility] [address] [place] [address] ALP [Catalytic activity/Vol] 48 Int._Unit/L Normal 21-98 [facility] Comment on above: Performed By: #### 2 695494, 2220371, 27520658, 2691138, 50303554 ####[facility] [address] [place] [address] ALT No additional P-5'-P [Catalytic activity/Vol] 28 Int._Unit/L Normal 6-46 [facility] Comment on above: Performed By: #### 2 015530, 7586595, 00277427, 0284876, 87521486 ####[facility] [address] [place] [address] Anion gap [Moles/Vol] 9 mmol/L Normal 6-16 [facility] Comment on above: Performed By: #### 2 494761, 9098248, 51119811, 0337920, 31211185 ####[facility] [address] [place] [address] AST [Catalytic activity/Vol] 20 Int._Unit/L Normal 5-43 [facility] Comment on above: Performed By: #### 2 525946, 6250090, 31763964, 9796068, 97961881 ####[facility] [address] [place] [address] Bilirubin [Mass/Vol] 0.8 mg/dL Normal 0.0-1.1 [facility] Comment on above: Performed By: #### 2 204240, 4443405, 15513177, 9918564, 11607540 ####[facility] [address] [place] [address] Calcium [Mass/Vol] 9.1 mg/dL Normal 8.9-11.1 [facility] Comment on above: Performed By: #### 2 513945, 4071092, 13450159, 7361464, 34564340 ####[facility] [address] [place] [address] Chloride [Moles/Vol] 108 mmol/L Normal 101-111 [facility] Comment on above: Performed By: #### 2 837723, 4637571, 46098036, 6461223, 06747524 ####[facility] [address] [place] [address] CO2 [Moles/Vol] 24 mmol/L Normal 21-31 [facility] Comment on above: Performed By: #### 2 093808, 6453247, 32579668, 5941129, 94758313 ####[facility] [address] [place] [address] Creatinine [Mass/Vol] 0.8 mg/dL Normal 0.5-1.3 [facility] Comment on above: Performed By: #### 2 381711, 9198502, 91884652, 5119531, 20402568 ####[facility] [address] [place] [address] Globulin (S) [Mass/Vol] 2.9 g/dL Normal 1.4-4.0 [facility] Comment on above: Performed By: #### 2 182337, 4880325, 84950438, 7540840, 93023778 ####[facility] [address] [place] [address] Glucose [Mass/Vol] 91 mg/dL Normal 55-199 [facility] Comment on above: Result Comment: If t his glucose result represents a fasting glucose, interpretation should refer to the following reference range: 55-99 mg/dL Performed By: #### 2 411331, 2600791, 94464113, 8131146, 57721048 ####[facility] [address] [place] [address] Potassium [Moles/Vol] 3.4 mmol/L Low 3.5-5.3 [facility] Comment on above: Performed By: #### 2 139575, 4494836, 93376386, 3898792, 89494861 ####[facility] [address] [place] [address] Protein [Mass/Vol] 7.3 g/dL Normal 6.0-7.8 [facility] Comment on above: Performed By: #### 2 725286, 6170546, 45677090, 9320927, 63221582 ####[facility] [address] [place] [address] Sodium [Moles/Vol] 138 mmol/L Normal 135-145 [facility] Comment on above: Performed By: #### 2 182478, 4407472, 59904415, 8880932, 72774235 ####[facility] [address] [place] [address] Urea nitrogen [Mass/Vol] 7 mg/dL Normal 5-21 [facility] Comment on above: Performed By: #### 2 [id number], [id number], [id number], [id number], [id number] ####[facility] [address] [place] [address] Urea nitrogen/Creatinine [Mass ratio] 9 No Units Low 10-20 [facility] Comment on above: Performed By: #### 2 138785, 9230043, [id number], 7891779, [id number] ####[facility] [address] [place] [address] Consent for Treatmenton 11-14 Consent for Treatment [id number] .[id number]:127 Normal [facility] Free T4on 12-03-2022 Free T4 [Mass/Vol] 1.43 ng/dL Normal 0.58-1.64 [facility] Comment on above: Order Comment: Free T4 added by Discern Rule due to a TSH result of <0.34 or >5.60. Performed By: #### 2 776815, 2828352, 57507946, 9921937, [id number] ####[facility] [address] [place] [address] Lipid Panelon 12-03-2022 Cholesterol [Mass/Vol] 170 mg/dL Normal 120-200 [facility] Comment on above: Performed By: #### 2 415818, 4679072, 79827457, 9397874, [id number] ####[facility] [address] [place] [address] Cholesterol in HDL [Mass/Vol] 44 mg/dL Invalid Interpretation Code [facility] Comment on above: Result Comment: HDL > or equal to 60 mg/dL: Low cardiovascular risk HDL < 40 mg/dL : High cardiovascular risk Performed By: #### 2 801303, 1119534, 95078414, 3864570, 90112531 ####[facility] [address] [place] [address] Cholesterol in LDL [Mass/Vol] 108 mg/dL Normal <=129 [facility] Comment on above: Performed By: #### 2 671551, 9175003, 23663217, 6950465, 99419503 ####[facility] [address] [place] [address] Cholesterol in VLDL [Mass/Vol] 25 mg/dL Normal 7-40 [facility] Comment on above: Performed By: #### 2 625208, 9319065, 38482411, 7419580, [id number] ####[facility] [address] [place] [address] Triglyceride [Mass/Vol] 127 mg/dL Normal <=149 [facility] Comment on above: Performed By: #### 2 910525, 5738824, 21301679, 3057159, 04705969 ####[facility] [address] [place] [address] TSH With T4fr Reflexon 12-03 TSH Qn 0.03 m[IU]/L Low 0.34-5.60 [facility] Comment on above: Performed By: #### 2 086934, 2473527, 05027234, 4078034, 97218532 ####[facility] [address] [place] [address] eGFRon 12-03-2022 GFR/1.73 sq M.predicted among non-blacks MDRD (S/P/Bld) [Vol rate/Area] 97 mL/min/1.73 m2 Normal >=59 [facility] Comment on above: Order Comment: Order added by Discern Expert. Result Comment: Junior Software Developer erica kidney disease could be indicated at eGFR's of less than 60 mL/min/1.73m2. Kidney failure is indicated at less than 15 mL/min/1.73m2. Performed By: #### 2 016964, 4891172, 63599349, 2791571, [id number] ####[facility] [address] [place] [address] Consultation Noteon 11-22-19 Consultation Note [id number]#1 .00CD:127 Normal [facility] Pulmonary Function Studieson 10-29-2022 Pulmonary Function Studies [...] READ BY: Meliza Vogel M.D. Dictated: 10/28/2022 [id number] Transcribed: 10/28/2022 cc:Clint Ortiz D.O. Normal [facility] Comment on above: Result Comment: Elec tronically Signed By: Jaspreet JOSEPH, Meliza Neal\.br\Date and Time Signed: 10/29/22 09:32 EDT Consent for Treatmenton 10-13 Consent for Treatment [id number]#1 .00CD:127 Normal [facility] Methacholine Challenge Testo n 10-27-2022 Methacholine Challenge Test [id number]#1 .00CD:127 Normal [facility] PROGESTERONEon 10-17-2022 Progesterone 30.4 ng/mL Normal [facility] Comment on above: Result Comment: Foll icular phase 0.1 - 0.9 Luteal phase 1.8 - 23.9 Ovulation phase 0.1 - 12.0 First trimester 11.0 - 44.3 Second trimester 25.4 - 83.3 Third trimester 58.7 - 214.0 Postmenopausal 0.0 - 0.1 Performed By: #### P DAWNA #### [facility] [address] [place] [address] Dr. Cecy Hernandez Pulmonary Function Studieson 10-11-2022 [...] indicated, consider methacholine challenge test. READ BY: Felipe Johnson M.D. lr Dictated: 10/08/2022 [id number] Transcribed: 10/08/2022 cc:Clint Ortiz D.O. [facility] Comment on above: Result Comment: Elec tronically Signed By: Alex JOSPEH, Felipe X\.br\Date and Time Signed: 10/11/22 12:51 EDT Coding Summary.on 10-09-2022 Coding Summary. CD:[id number] W w+PGhlYWQ+RM5LRLJdA92 ztSWcxQ2hG8GKCIjZTujv RZNRMKrEWdJinaHqDC2wr XNjZXJu IC8+VS0aDFLxGwdygIQrh 9X6pLE5Z40gjs6kCWtnxZ M3ZZHlGoTuiewdo4xjzYy 6IDcuNmluOyBt DGAfyW30TIC9wA42Ye23s OAicWKhu3dkfXg3HtHbUU SzVEV8qVhoSScyn0PjKPS iF33deGKco2Y3 UUOevXaoxXBdItFleKS1o Y9nIXgetnwsf8xjxbxfZa j3yu69pVZkq2O0pXL8H3I ccgD9BRXdjIQj EdsmrCSYjE2xrwtah2gnp fskCjXoKQSpMQq1OBp0KK HxdIeiKeFvYY08SEA0TRW dnbJvS8PxKKFk xQeeFeY8j8R3Il7QO4LAG uuwW4EDLUVAGXbauNZ+PC 80rb08X3RsZyfnGbl7RIH sDMQ3yRR3gY6w QAYsNGyqa3T2xSH9W8Jri lXufh9uo0fjVBCzQYahE4 9uuHKbu6T0KBQiaTW1YWX ksIrkHcDncA38 Oyc+INZqjEbai1IfYtwuz 9hwh4rolHn7ResmAPWdps XecEwzKFP3o1TmSg2uRVS ofWC5gWU8pR9b VpEcQgS5JIfgJ759ApCqo WQuAuawA93qY8HdjOO+PH IaViy7MOObdJqnBK8eG2X hZGRpbmctbGVm uMctBY4mRACxuvugYHMcm O2kIKIcT5q1JyDjIhI7GZ hmF7SnRCHrqsrwPy60iR3 dRaMzUaO7HYdv K8EqmsN9LRNteNDqORwuO KV6Y29ue1M4XFBmPGKrVL J5zLW3pM7lcLoszixiwHL mdDsgdmVydGlj MAftMFnaL467YTQaeWkqO kNvZGluZyBEYXRlOiAgMD QvMjcvMjAyMzwvdGQ+PHR yIJD5bYbyDFOn zEUdCUavTo5rnRqnbExlQ D9xRVEkhtlyVLRwyI0fWD ItnIQeoOhkHU6eFDNdxou bb844KaEyJPW0 BFHgqOTjK9TrzX8eThQuI XYcGRQvG9WgnJBdTXywI1 04AGhyPgI3CUFbluSnP7P sLWFsaWduOiB0 t1O9Ke3Tz5HruudrK2Blw VFtEhIlGjkaGOq6W0BmKs wvdHI+BC98QIAlOD94KPj 0UXH7kSsiWHyz GYUiO8StsT1dVfUiFDQvB GRkOyc+PHRhYmxlIHdpZH RoPScxMDAlJyBzdHlsZT0 uEb4rVEDrQNUs tKhfyFRbSbVla8xlOZOiZ NtrJZ4yeAfcI0VwwPR9VM Sbl6z9Sd03O50jV6FtdHK +ZFTqaFC8wZF6 jE2sUkQxGcE2VQxxG160N vZpzAZyEgfqw1afk3rpyL g5BsK5BCEzaaDlnNxuCNE 7b9ZkWz04S42c IHdpZHRoPSIxNSUiIHZhb Kovaq7pvW2dMc1+PGNvbC M1qUF8oC2mSnFvFdZ0CMa bZ804YaXrbQXc Vxpzl1cir2ccbXa8MtQvX PZmceOwjLetLEP2c2AnYw 46E6XbnKkrr3TzJst9ja8 5oFFga1S3qQB1 C5VbAJZzqsyypEAvbNgwM V8vOBZckaxyJSMpcU5jKJ GmI2f3MyQeJiJ7AGdjQ1L szcW0GIOilTYs EQRlqTMUmR8yjcxmo6lkk wocVyNcYEKnRCx8TKi1HE VubSgeVnBeBCF7TjY4GAC 7uDNekZ0nnZub moutqI5iQat+GEV9vINzg EZFJE6oXllvsMY+PHRkIH I8lQvlEHoySAUnaO7mSWA eF8n1VrOvLfI5 GYboT4RlexW0BLFgwNPmW XHghTIOfE4wasdml8ftry dyZuHgNLWqRQw4ISm0ACY saWduOiBsZWZ0 DiH1FHR5iRUiqJ8tgMkpk lmssA5jVkx+QmlydGggRG C3TCp2E8YlIbe8PXFwmUw sEC6leLZjFImw Tu3zdKfeaKmqOI7vAOIuo daad012BdVhc7tdYMWdpU PdZKtpOXU1M41ru4P2KBB hJZSdFDW1bCI8 vF7otIlknvqtfALspHyxv hTkuMqzSCjmEKhnW708HM LtxAbkUaChTWg4C8LcSje 7LXBroYhqKY0b aAMbEIhkPm1ldQxmbMmgQ N5qVUMdmlklz157IzBab9 xoRTMwnKKaXWdlPAW9I74 sn2V0HNTnFFWd XSP5hJW9mI7eeRkbzpfhe GVmdDsgdmVydGljYWwtYW jfD598LQOnlTvvRtFykWj 0J7VvWrn6ULDt rWadBU3egQVkAPmrQf2ie MfrpRyhIQ2zGXKvpfoob7 04BtCba0kwVMGmeHNvVEk iSTB4A31qz5E0 QVRiWMZkIKJ7wSK9oA4zf GlnbjogbGVmdDsgdmVydG otTKsuHCmjB326ANKwzKs nPlBhdGllbnQg NOieCEj7E0SaNguaxER+P W40PBChJE52jLGxyQOch2 hckEl4ThDmLZSxWQL9uWe qJSang7LmWLKk H63rgPEwz0V9MBQgbBrrx ZZcKeFjkIE2dF1iXXmooa phc6mxbwyqOixgj0jzmt7 9lS82T90lVQhk ZHRoPSIzMCUiIHZhbGlnb f0laM0iCp9+LRKixRN1eZ N3nY5kUUZsJaY8RCuvJ38 9InRvcCIvPjxj w4iyy6jbwPw6UyS8SHLpo oVfrRorPXF8a5RwXw89F8 9sIHdpZHRoPSIyMCUiIHZ bxKzrny8jaR4b Ii8+VGMoaKT2bPB7yD5vO uRiHtG9GTokB115PxMhuZ QgTqlzS50oJ6NrvMR+PHR aBfh7SBIqcRxa QQ0gkRSnAQiyAi3eSRC3N fLjBoXzLRqwS6UdLKStnm pavxartKX6YUZtVYZptT9 3Oz7xgNjvPVVf jNMLuF4xpiehx2tqdidhB dSmLSVeCBf8CWe5SPGczY odPhHsNCZ9TsZ1YYV9oMX tzE5ucTbrhoyh lF6qD5RqONYwxdffEe57y R6dVjJmMoG6MKrxDbj+UE IJVj0OXEyeH8aDN28LDL4 1A7ErJtt9UNId hNheBT3nbSNqRZadOc7gs NpmwQyhJJ1fIXVdvylaIC VxdO7vANKwjBMueQqbLA3 gOYIizozzq445 JvKeXFW5KQCuyTWhR4Gxa M7vPqMyVUYmKQBrI7KygT FeGRbtX703QFadSgS9GHJ bncBkF4TnIJFd iGrmWxA6o9S0Va1hSS9qM l5qTAz2WF72KJ18dHBxv4 Y3rXY1P9BzQVWsvjylywz mpCQ8XQAaTKGr eN17bMGvVOlgTm9qd7H3k 516ZPTwAADfuT42Vl6mrA fmYRSxcZWLoC4pyifga8t vcjogIzAwMDAw JGj0VOu1DEGmsEzuAaLjB WD2LdE4ZPR0qQAxmJ5lqV vshqjrgU1oQzi+MzcgWWV xfnK8N4FwBfi9 XKRaeWdkIZ2usZZoBHxzR x7srMoriTeiRJ1jJCTmtr qeYZPbtN1eCYJdfRZqwQa dPO6sXKZbcodi e540EqSfWAJ1JAYllZRpF 0JhjM4dXkGkYWXeLBRsX7 DrmVTaAAqnM819AGbfPsQ 4JFJuycMlS2Ff ZRMrcYseEvZ7u2A6Nj4HH D7dxDJ6O5WwXum0KXQfiO ojRJ9haHUfWVesRv3cqKi kyVweRO2jTEBg iahkEYVzfT7mRXMqoVBaw UiaZU7bAQMvkjfdk175Jy EeXMB7ICMvdRYxG7NvqV5 yOiAjMDAwMDAw K3ZvoEZgRYycU592DMhoQ hB8LPFipfJkV0ZeHSIlmH fbArZ3l2M4Xc7OsOCpIGY nIF98LG80WA94 Z7EbAobbuFWcpPX+PHRhY mxlIHdpZHRoPScxMDAlJy JxjTqzEL4fUv4qLQNlMHT vbGxhcHNlOiBj g7lqNYRcYNqbXK9rkLqmX 8UxhLW6ZTRlm8e6Pw91O2 1lG1GpjFY+EDNgqYP7sFH 9yM6cEmJsGpE9 BUzaI080GlBgyBYvGjmqt 5lzd9dasYy0ObAwSLMygi NokBiuCAY8j5KnFo74W42 sIHdpZHRoPSIy IUUbAAHnmZdqpg0adJ8vW i8+RDLefBJ5xTG3uW0yRc AqEyB4XRssC516XnUirNO dSiufB06tX6Rk dXA+TPKuDzj4ANYepLjnG A5yjVGvZVgwQt6qQPG7Yx AgAtNtUPjcX5EmGPXarcr yvvvpkLV1ZZFx OOLyuV36Rm8hsTwaLn1vS AGqTRL5IEHjkAJvX6CpnZ 7nFfPzQXWqHVWgB9PldYY hQFjmC995VAsf SsD4YKTgcqRxY0IqTYVfe CiaLwJ3y1G2Mr2AiKuscM VnTB0dFsXkHVs7A9XwBvr 5JUKhgPbcGY9a lVElOZbfXq1zlBdilEioT N5dTOTilhbxl492JxVqn9 gtICIdmOPaBGhwQMB6A95 of6J0LFNfBEXk TOW0uFH0mO5psQqfirpoo GVmdDsgdmVydGljYWwtYW tkI037PUPycYxkIuMCYgx 1Q2EoTeh0YFGf hXkdJF0ywMHhYDnoLj5xc XleqGahYT5sJGInvyetc8 61RmJct7icYGNfjSTdVAk hMRQ5N15cw4I9 AUWjCNHsYDU5rLF9mT6py GlnbjogbGVmdDsgdmVydG smBXlfYLieX359VOEtkFv kJx6ZMju0R8Dk Dwz2QNXbuWodCO6hhZJhZ UntPt0gvBbsrAcsLR2mOG Bspazuj988VtMba8wjZYY wcHQgVGltZXM7 O95wg8H8VLCbDGKtHRV1t GE2nI1rhIawwcihwOSfgU vwhkTyxEvaXZneIWueO43 6IHRvcDsnPlBh eWVyOjwvdGQ+QW17tb15P 8JrLurkSzw0KDUnKDM4fE N6pA4xQJEiFAipb8L3sDC 5F3DrxmZnfy8a r7rnEKCc (more content not included)... Normal [facility] US Thyroidon 10-07-2022 US Thyroid Exam Date/Time: [...] MD Transcribed by: JOVANNY Technologist: DUSTIN Normal [facility] Consent for Treatmenton 09-14 Consent for Treatment [id number]#1 .00CD:127 Normal [facility] Pulmonary Function Testson 0 10-06-2022 Pulmonary Function Tests [id number]#1 .00CD:127 Normal [facility] Interdisciplinary Note - Res piratoryon 10-03-2022 Interdisciplinary [...] _ Patient told to enter through the [facility] entrance: _ Patient told to enter through the Emergency Room entrance: _ Normal [facility] Physician Referralon 023 Physician Referral [id number] #1.00CD:127 Normal [facility] Ambulatory Visit Summaryon 0 09-29-2022 Ambulatory Visit [...] Will Contact You Regarding These Appointments\.br \ [facility] External Ambulatory Referral, ENT, previous testing performed at [facility], 09/29/22 9:46:00 EDT, Thyroid nodule\.br\ Medications\.br\ What [...] (polycystic ovarian syndrome)\.br\ Smoker\.br\ Thyroid nodule\.br\ \.br\ [facility] Family Medicine Office/Clini c Noteon 09-29-2022 Family Medicine Office/Clinic Note Chief Complaint EST. CARE,also question on ADHD History of Present Illness Dominique is a 37-year-old female that presents today to [facility]. Previous PCP was Dr. Dye. ANXIETY She [...] borderline personality disorder by a psychiatrist in [place] when she was 17-year-old. Was also previously [...] did the ultrasound and he was in [place]. States she has only seen the doctor [...] This was diagnosed by Dr. Jules in [place] 5 to 6 years ago. She had a glucose tolerance test 3 years ago and failed. She went 2 weeks without her metformin. FIBROMYALGIA She is not currently taking anything for it. It was diagnosed by a cardiology nurse in [place]. She only sees him once a year. [...] directly? ( (more content not included)... Normal [facility] Comment on above: Result Comment: Elec troericaally Signed By: Cromley DO, Clint J\.br\Date and Time Signed: 09/29/22 20:56 EDT\.br\Electronically Co-Signed By: Rahel Carreno\.br\Date and Time Co-Signed: 09/29/22 13:57 EDT Formson 09-29-2022 Forms [id number]#1 .00CD:127 Normal [facility] PROGESTERONEon 09-16-2022 Progesterone 24.8 ng/mL Normal [facility] Comment on above: Result Comment: Foll icular phase 0.1 - 0.9 Luteal phase 1.8 - 23.9 Ovulation phase 0.1 - 12.0 First trimester 11.0 - 44.3 Second trimester 25.4 - 83.3 Third trimester 58.7 - 214.0 Postmenopausal 0.0 - 0.1 Performed By: #### P ROGES #### [facility] [address] [address] [address] Cecy Hernandez PAP ACOG PANEL 2: 30 to 65on 09-03-2022 . . Normal [facility] Comment on above: Result Comment: Perf ormed at: WB Performed By: #### P ROGES #### [facility] [address] [address] [address] Cecy Hernandez Age Gdln ACOG Testing 30-65 [facility] Comment on above: Performed By: #### P ROGES #### [facility] [address] [address] [address] Cecy Hernandez DIAGNOSIS: Comment Normal [facility] Comment on above: Result Comment: NEGA TIVE FOR INTRAEPITHELIAL LESION OR MALIGNANCY. Performed at: WB Performed By: #### P ROGES #### [facility] [address] [address] [address] Cecy Hernandez HPV Aptima Negative Normal Negative [facility] Comment on above: Result Comment: This nucleic acid amplification test detects fourteen high-risk HPV types (16,18,31,33,35,39,45,51,52,56,58,59,66,68) without differentiation. Performed at: =G Performed By: #### P ROGES #### [facility] [address] [address] [address] Cecy Hernandez HPV Genotype Reflex Comment Normal [facility] Comment on above: Result Comment: Crit ezio not met, HPV Genotype not performed. Performed at: WB Performed By: #### P ROGES #### [facility] [address] [address] [address] Cecy Hernandez Methodology: Comment Normal [facility] Comment on above: Result Comment: This liquid based ThinPrep(R) pap test was screened with the use of an image guided system. Performed at: WB Performed By: #### P ROGES #### [facility] [address] [address] [address] Cecy Hernadnez Note: Comment Normal [facility] Comment on above: Result Comment: The Pap smear is a screening test designed to aid in the detection of premalignant and malignant conditions of the uterine cervix. It is not a diagnostic procedure and should not be used as the sole means of detecting cervical cancer. Both false-positive and false-negative reports do occur. . Performed at: WB Performed By: #### P ROGES #### [facility] [address] [address] [address] Cecy Hernandez Performed by: Comment Normal [facility] Comment on above: Result Comment: Ludivina Maldonado, Fixed Route Operator Performed at: WB Performed By: #### P ROGRYLEY #### [facility] [address] [place] [address] Dr. Cecy Hernandez Specimen adequacy: Comment Normal [facility] Comment on above: Result Comment: Sati sfactory for evaluation. Endocervical and/or squamous metaplastic cells (endocervical component) are present. Areas of partially obscuring blood are present. Performed at: WB Performed By: #### P ROGES #### [facility] [address] [address] [address] Cecy Hernandez PROGESTERONEon 07-16-2022 Progesterone 15.0 ng/mL [facility] Comment on above: Result Comment: Foll icular phase 0.1 - 0.9 Luteal phase 1.8 - 23.9 Ovulation phase 0.1 - 12.0 First trimester 11.0 - 44.3 Second trimester 25.4 - 83.3 Third trimester 58.7 - 214.0 Postmenopausal 0.0 - 0.1 Performed By: #### P DAWNA #### [facility] [address] [place] [address] Dr. Cecy Hernandez CBC AUTO DIFFon 06-27-2022 BASO # 0.0 103/ul Normal 0.0-0.1 [facility] Comment on above: Performed By: #### P DAWNA #### [facility] [address] [place] [address] Dr. Cecy Hernandez Basophils/100 WBC (Bld) 0.5 % Normal 0.2-2.0 [facility] Comment on above: Performed By: #### P DAWNA #### [facility] [address] [place] [address] Dr. Cecy Hernandez EO # 0.3 103/ul Normal 0.0-0.7 [facility] Comment on above: Performed By: #### P DAWNA #### [facility] [address] [place] [address] Dr. Cecy Hernandez Eosinophils/100 WBC (Bld) 3.2 % Normal 0.9-7.0 [facility] Comment on above: Performed By: #### P DAWNA #### [facility] [address] [place] [address] Dr. Cecy Hernandez Erythrocyte distribution width (RBC) [Ratio] 12.4 % Normal 11.0-15.0 [facility] Comment on above: Performed By: #### P DAWNA #### [facility] [address] [place] [address] Dr. Cecy Hernandez Hematocrit (Bld) [Volume fraction] 40.9 % Normal 36.0-48.0 [facility] Comment on above: Performed By: #### P DAWNA #### [facility] [address] [place] [address] Dr. Cecy Hernandez Hemoglobin (Bld) [Mass/Vol] 14.1 g/dL Normal 12.0-16.0 [facility] Comment on above: Performed By: #### P DAWNA #### [facility] [address] [address] [address] Cecy Hernandez IG # 0.03 10e3/ul Normal 0.00-0.03 [facility] Comment on above: Performed By: #### P DAWNA #### [facility] [address] [address] [address] Cecy Hernandez IG % 0.3 % Normal 0.0-0.5 [facility] Comment on above: Performed By: #### P DAWNA #### [facility] [address] [address] [address] Cecy Hernandez LYMPH # 3.6 103/ul Normal 1.2-3.8 [facility] Comment on above: Performed By: #### P DAWNA #### [facility] [address] [place] [address] Dr. Cecy Hernandez Lymphocytes/100 WBC (Bld) 41.4 % Normal 20.5-60.0 [facility] Comment on above: Performed By: #### P DAWNA #### [facility] [address] [place] [address] Dr. Cecy Hernandez MANUAL DIFF REQ NO Normal [facility] Comment on above: Performed By: #### P DAWNA #### [facility] [address] [place] [address] Dr. Cecy Hernandez MCH (RBC) [Entitic mass] 29.0 pg Normal 26.7-34.0 [facility] Comment on above: Performed By: #### P DAWNA #### [facility] [address] [place] [address] Dr. Cecy Hernandez MCHC (RBC) [Mass/Vol] 34.5 g/dL Normal 29.9-35.2 [facility] Comment on above: Performed By: #### P DAWNA #### [facility] [address] [place] [address] Dr. Cecy Hernandez MCV (RBC) [Entitic vol] 84.2 fL Normal 81.0-99.0 [facility] Comment on above: Performed By: #### P DAWNA #### [facility] [address] [address] [address] Cecy Hernandez MONO # 0.5 103/ul Normal 0.3-0.8 [facility] Comment on above: Performed By: #### P DAWNA #### [facility] [address] [place] [address] Dr. Cecy Hernandez Monocytes/100 WBC (Bld) 5.9 % Normal 1.7-12.0 [facility] Comment on above: Performed By: #### P DAWNA #### [facility] [address] [place] [address] Dr. Cecy Hernandez NEUT # 4.2 103/ul Normal 1.4-6.5 [facility] Comment on above: Performed By: #### P DAWNA #### [facility] [address] [place] [address] Dr. Cecy Hernandez Neutrophils/100 WBC (Bld) 48.7 % Normal 43.0-75.0 [facility] Comment on above: Performed By: #### P DAWNA #### [facility] [address] [place] [address] Dr. Cecy Hernandez Platelet mean volume (Bld) [Entitic vol] 10.0 fL Normal 9.5-13.5 [facility] Comment on above: Performed By: #### P DAWNA #### [facility] [address] [place] [address] Dr. Cecy Hernandez PLT 283 103/ul Normal 150-450 [facility] Comment on above: Performed By: #### P DAWNA #### [facility] [address] [place] [address] Dr. Cecy Hernandez RBC 4.86 106/ul Normal 4.20-5.40 [facility] Comment on above: Performed By: #### P DAWNA #### [facility] [address] [place] [address] Dr. Cecy Hernandez WBC 8.6 103/ul Normal 4.0-11.0 [facility] Comment on above: Performed By: #### P DAWNA #### [facility] [address] [place] [address] Dr. Cecy Hernandez ER URINE PROFILEon 3 Bilirubin Ql (U) Negative Normal NEGATIVE [facility] Comment on above: Performed By: #### P ROGES #### [facility] [address] [place] [address] Dr. Cecy Hernandez Clarity (U) CLEAR Normal CLEAR [facility] Comment on above: Performed By: #### P ROGES #### [facility] [address] [place] [address] Dr. Cecy Hernandez Color (U) LT. YELLOW Normal YELLOW [facility] Comment on above: Performed By: #### P ROGES #### [facility] [address] [place] [address] Dr. Cecy VARGHESE A micrscopic examination will be performed if indicated. Normal [facility] Comment on above: Performed By: #### P ROGES #### [facility] [address] [place] [address] Dr. Cecy Hernandez Glucose Ql (U) Negative Normal NEGATIVE [facility] Comment on above: Performed By: #### P ROGES #### [facility] [address] [place] [address] Dr. Cecy Hernandez Hemoglobin Ql (U) TRACE-INTACT Abnormal NEGATIVE [facility] Comment on above: Performed By: #### P ROGES #### [facility] [address] [place] [address] Dr. Cecy Hernandez Ketones Ql (U) Negative Normal NEGATIVE [facility] Comment on above: Performed By: #### P ROGES #### [facility] [address] [place] [address] Dr. Cecy Hernandez LEUKOCYTES Negative Normal NEGATIVE [facility] Comment on above: Performed By: #### P ROGES #### [facility] [address] [place] [address] Dr. Cecy Hernandez Nitrite Ql (U) Negative Normal NEGATIVE [facility] Comment on above: Performed By: #### P ROGES #### [facility] [address] [place] [address] Dr. Cecy Hernandez pH (U) 7.0 [pH] Normal 5-9 [facility] Comment on above: Performed By: #### P ROGES #### [facility] [address] [address] [address] Cecy Hernandez SPEC GRAVITY 1.010 Normal 1.005-<=1.025 [facility] Comment on above: Performed By: #### P ROGES #### [facility] [address] [address] [address] Cecy Hernandez UA PROTEIN Negative Normal NEGATIVE/ TRACE [facility] Comment on above: Performed By: #### P ROGES #### [facility] [address] [address] [address] Cecy Hernandez UR MICRO IND INDICATED Normal [facility] Comment on above: Performed By: #### P ROGES #### [facility] [address] [place] [address] Dr. Cecy Hernandez Urobilinogen Qn (U) 0.2 {Jone'U}/dL Normal 0.2 - 1. 0 [facility] Comment on above: Performed By: #### P ROGES #### [facility] [place] [facility] [address] [place] [address] Dr. Cecy Hernandez PREG HCG QUALon 06-27-2022 , QUAL Negative Normal NEGATIVE [facility] Comment on above: Performed By: #### P REG #### [facility] [place] [facility] [address] [place] [address] Dr. Cecy Hernandez PROF CHEM 8 (BAS METB)on Anion gap [Moles/Vol] 12.9 mmol/L Normal [facility] Comment on above: Performed By: #### B MP #### [facility] [place] [facility] [address] [place] [address] Dr. Cecy Hernnadez Calcium [Mass/Vol] 9.0 mg/dL Normal 8.5-10.1 [facility] Comment on above: Performed By: #### B MP #### [facility] [place] [facility] [address] [place] [address] Dr. Cecy Hernandez Chloride [Moles/Vol] 101 mmol/L Normal 98-107 [facility] Comment on above: Performed By: #### B MP #### [facility] [place] [facility] [address] [address] [address] Cecy Hernandez CO2 [Moles/Vol] 26.7 mmol/L Normal 21.0-32.0 [facility] Comment on above: Performed By: #### B MP #### [facility] [place] [facility] [address] [address] [address] Cecy Hernandez Creatinine [Mass/Vol] 0.91 mg/dL Normal 0.55-1.02 [facility] [place] [facility] Comment on above: Performed By: #### B MP #### [facility] [place] [facility] [address] [address] [address] Cecy Hernandez EGFR-AF CITIZEN OF [place] >60 Normal >=60 [facility] Comment on above: Performed By: #### B MP #### [facility] [place] [facility] [address] [address] [address] Cecy Hernandez EGFR-NON AF CITIZEN OF [place] >60 Normal >=60 [facility] [place] [facility] Comment on above: Performed By: #### B MP #### [facility] [place] [facility] [address] [address] [address] Cecy Hernandez Glucose [Mass/Vol] 86 mg/dL Normal 74-106 [facility] Comment on above: Performed By: #### B MP #### [facility] [place] [facility] [address] [address] [address] Cecy Hernandez Potassium [Moles/Vol] 3.6 mmol/L Normal 3.5-5.1 [facility] [place] [facility] Comment on above: Performed By: #### B MP #### [facility] [place] [facility] [address] [address] [address] Cecy Hernandez Sodium [Moles/Vol] 137 mmol/L Normal 136-145 [facility] Comment on above: Performed By: #### B MP #### [facility] [place] [facility] [address] [address] [address] Cecy Hernandez Urea nitrogen [Mass/Vol] 14.0 mg/dL Normal 7.0-18.0 [facility] [place] [facility] Comment on above: Performed By: #### B MP #### [facility] [place] [facility] [address] [place] [address] Dr. Cecy Hernandez Urea nitrogen/Creatinine [Mass ratio] 15.4 mg/mg Normal [facility] [place] [facility] Comment on above: Performed By: #### B MP #### [facility] [place] [facility] [address] [place] [address] Dr. Cecy Hernandez URINE MICROSCOPIC ONLYon BACTERIA NONE SEEN Normal NONE SEEN [facility] [place] [facility] Comment on above: Performed By: #### P ROGES #### [facility] [place] [facility] [address] [place] [address] Dr. Cecy Hernandez Bacteria identified Cx Nom (U) NOT INDICATED Normal [facility] [place] [facility] Comment on above: Performed By: #### P ROGES #### [facility] [place] [facility] [address] [place] [address] Dr. Cecy Hernandez CAST NONE SEEN Normal NONE SEEN [facility] [place] [facility] Comment on above: Performed By: #### P ROGES #### [facility] [place] [facility] [address] [place] [address] Dr. Cecy Hernandez Crystals LM Nom (Urine sed) NONE SEEN Normal NONE SEEN [facility] [place] [facility] Comment on above: Performed By: #### P ROGES #### [facility] [place] [facility] [address] [place] [address] Dr. Cecy Hernandez Epithelial cells LM Ql (Urine sed) FEW Abnormal NONE SEEN /RARE [facility] [place] [facility] Comment on above: Performed By: #### P ROGES #### [facility] [place] [facility] [address] [place] [address] Dr. Cecy Hernandez MUCOUS NONE SEEN Normal NONE SEEN [facility] [place] [facility] Comment on above: Performed By: #### P ROGES #### [facility] [place] [facility] [address] [place] [address] Dr. Cecy Hernandez RBC 0-2 Normal 0-2 [facility] [place] [facility] Comment on above: Performed By: #### P ROGES #### [facility] [place] [facility] [address] [place] [address] Dr. Cecy Hernandez WBC 2-5 Abnormal NONE SEEN [facility] [place] [facility] Comment on above: Performed By: #### P ROGES #### [facility] [place] [facility] [address] [place] [address] Dr. Cecy Hernandez US PELVIS TRANSVAGon 023 [...] by: KEYANNA SHARPE Date: 2022-06-27 19:44 Normal [facility] FREE T3on 05-19-2022 FREE T3 2.17 pg/mlL Critically low 2.18-3.98 [facility] Comment on above: Performed By: #### B MP, TSH, FT3 #### [facility] [place] [facility] [address] [address] [address] Cecy Hernandez PROF CHEM 8 (BAS METB)on Anion gap [Moles/Vol] 11.5 mmol/L Normal [facility] Comment on above: Performed By: #### B MP, TSH, FT3 #### [facility] [place] [facility] [address] [address] [address] Cecy Hernandez Calcium [Mass/Vol] 8.7 mg/dL Normal 8.5-10.1 [facility] Comment on above: Performed By: #### B MP, TSH, FT3 #### [facility] [place] [facility] [address] [address] [address] Cecy Hernandez Chloride [Moles/Vol] 102 mmol/L Normal 98-107 [facility] [place] [facility] Comment on above: Performed By: #### B MP, TSH, FT3 #### [facility] [place] [facility] [address] [address] [address] Cecy Hernandez CO2 [Moles/Vol] 26.3 mmol/L Normal 21.0-32.0 [facility] Comment on above: Performed By: #### B MP, TSH, FT3 #### [facility] [place] [facility] [address] [address] [address] Cecy Hernandez Creatinine [Mass/Vol] 0.82 mg/dL Normal 0.55-1.02 [facility] Comment on above: Performed By: #### B MP, TSH, FT3 #### [facility] [place] [facility] [address] [address] [address] Cecy Hernandez EGFR-AF CITIZEN [place] >60 Normal >=60 [facility] Comment on above: Performed By: #### B MP, TSH, FT3 #### [facility] [place] [facility] [address] [address] [address] Cecy Hernandez EGFR-NON AF CITIZEN OF [place] >60 Normal >=60 [facility] Comment on above: Performed By: #### B MP, TSH, FT3 #### [facility] [place] [facility] [address] [address] [address] Cecy Hernandez Glucose [Mass/Vol] 106 mg/dL Normal 74-106 [facility] Comment on above: Performed By: #### B MP, TSH, FT3 #### [facility] [place] [facility] [address] [address] [address] Cecy Hernandez Potassium [Moles/Vol] 3.8 mmol/L Normal 3.5-5.1 [facility] Comment on above: Performed By: #### B MP, TSH, FT3 #### [facility] [place] [facility] [address] [address] [address] Cecy Hernandez Sodium [Moles/Vol] 136 mmol/L Normal 136-145 [facility] Comment on above: Performed By: #### B MP, TSH, FT3 #### [facility] [place] [facility] [address] [address] [address] Cecy Hernandez Urea nitrogen [Mass/Vol] 8.0 mg/dL Normal 7.0-18.0 [facility] Comment on above: Performed By: #### B MP, TSH, FT3 #### [facility] [place] [facility] [address] [address] [address] Cecy Hernandez Urea nitrogen/Creatinine [Mass ratio] 9.8 mg/mg Normal [facility] Comment on above: Performed By: #### B MP, TSH, FT3 #### [facility] [place] [facility] [address] [address] [address] Cecy Hernandez TSHon 05-19-2022 TSH 0.415 uIU/mL Normal 0.358-3.740 [facility] Comment on above: Performed By: #### B MP, TSH, FT3 #### [facility] [place] [facility] [address] [place] [address] Dr. Cecy Hernandez PROGESTERONEon 05-13-2022 Progesterone 15.9 ng/mL Normal [facility] Comment on above: Result Comment: Foll icular phase 0.1 - 0.9 Luteal phase 1.8 - 23.9 Ovulation phase 0.1 - 12.0 First trimester 11.0 - 44.3 Second trimester 25.4 - 83.3 Third trimester 58.7 - 214.0 Postmenopausal 0.0 - 0.1 Performed By: #### P DAWNA #### [facility] [place] [facility] [address] [place] [address] Dr. Cecy Hernandez PROGESTERONEon 04-12-2022 Progesterone 9.8 ng/mL Normal [facility] Comment on above: Result Comment: Foll icular phase 0.1 - 0.9 Luteal phase 1.8 - 23.9 Ovulation phase 0.1 - 12.0 First trimester 11.0 - 44.3 Second trimester 25.4 - 83.3 Third trimester 58.7 - 214.0 Postmenopausal 0.0 - 0.1 Performed By: #### P DAWNA #### [facility] [place] [facility] [address] [place] [address] Dr. Cecy Hernandez PROGESTERONEon 03-12-2022 Progesterone 13.8 ng/mL Normal [facility] Comment on above: Result Comment: Foll icular phase 0.1 - 0.9 Luteal phase 1.8 - 23.9 Ovulation phase 0.1 - 12.0 First trimester 11.0 - 44.3 Second trimester 25.4 - 83.3 Third trimester 58.7 - 214.0 Postmenopausal 0.0 - 0.1 Performed By: #### P DAWNA #### [facility] [place] [facility] [address] [place] [address] Dr. Cecy Hernandez PROGESTERONEon 02-12-2022 Progesterone 12.7 ng/mL Normal [facility] Comment on above: Result Comment: Foll icular phase 0.1 - 0.9 Luteal phase 1.8 - 23.9 Ovulation phase 0.1 - 12.0 First trimester 11.0 - 44.3 Second trimester 25.4 - 83.3 Third trimester 58.7 - 214.0 Postmenopausal 0.0 - 0.1 Performed By: #### P DAWNA #### [facility] [place] [facility] [address] [place] [address] Dr. Cecy Hernandez PROGESTERONEon 01-11-2022 Progesterone 19.2 ng/mL Normal [facility] Comment on above: Result Comment: Foll icular phase 0.1 - 0.9 Luteal phase 1.8 - 23.9 Ovulation phase 0.1 - 12.0 First trimester 11.0 - 44.3 Second trimester 25.4 - 83.3 Third trimester 58.7 - 214.0 Postmenopausal 0.0 - 0.1 Performed By: #### P DAWNA #### [facility] [place] [facility] [address] [place] [address] Dr. Cecy Hernandez COVID Quick Testingon 2021 Result Positive [facility] Other Quick Fluon 11-15-2021 FLUAV Ab CF (S) [Titer] Negative [facility] Other FLUBV Ab CF (S) [Titer] Negative [facility] Other FREE T3on 11-14-2021 FREE T3 2.17 pg/mlL Critically low 2.18-3.98 [facility] Comment on above: Performed By: #### P DAWNA #### [facility] [place] [facility] [address] [place] [address] Dr. Cecy Hernandez TSHon 11-14-2021 TSH 0.265 uIU/mL Critically low 0.358-3.740 [facility] Comment on above: Performed By: #### P DAWNA #### [facility] [place] [facility] [address] [place], [place] [address] Dr. Cecy Hernandez TSH RANGE SEE BELOW Normal [facility] Comment on above: Result Comment: <0.3 4 UIU/ml HYPERTHYROID 0.34-5.60 UIU/ml EUTHYROID >5.60 UIU/ml HYPOTHYROID Performed By: #### P DAWNA #### [facility] [place] [facility] [address] [place], [place] [address] Dr. Cecy Hernandez PROGESTERONEon 10-26-2021 Progesterone 0.1 ng/mL Normal [facility] [place] [facility] Comment on above: Result Comment: Foll icular phase 0.1 - 0.9 Luteal phase 1.8 - 23.9 Ovulation phase 0.1 - 12.0 First trimester 11.0 - 44.3 Second trimester 25.4 - 83.3 Third trimester 58.7 - 214.0 Postmenopausal 0.0 - 0.1 Performed By: #### P DAWNA #### [facility] [place] [facility] [address] [place], [place] [address] Dr. Cecy Hernandez XR shoulder LT min 2V*on XR shoulder LT min 2V* [facility] [place] [place] [address] XRay Report Signed Patient: Dominique Crenshaw MR#: [id number] 4 : 1985 Acct:[id number] Age/Sex: 36 / F ADM Date: 08/15/21 [place] [facility] [place]: Type: [facility] Attending Dr: Petros Lion MD Ordering Provider: [...] 2V* IMPRESSION:No acute findings. Impression dictated by: Giovani Nelson M.D.08/15/2021 1:32 PM Dictation Location: [facility]--11 Transcribed By: [facility] 08/15/21 1332 Dictated By: Giovani Nelson DO 08/15/21 1331 Signed By: 08/15/21 1332 [facility] Vital Signs Date Time Vital Sign Value Performing Clinician [facility] 06-25-2023 15:02-0500 Blood Pressure Location [facility] 06-25-2023 15:02-0500 Diastolic blood pressure 90 mm[Hg] [facility] 06-25-2023 15:02-0500 Heart rate 106 /min [facility] 06-25-2023 15:02-0500 SaO2% (BldA) [Mass fraction] 99 % [facility] 06-25-2023 15:02-0500 Systolic blood pressure 120 mm[Hg] [facility] 06-07-2023 09:20-0500 Blood Pressure Location Vinnie Romero [facility] 06-07-2023 09:20-0500 Body temperature 97.88 [degF] [facility] Rom[facility] 06-07-2023 09:20-0500 Diastolic blood pressure 79 mm[Hg] [facility] Romero [facility] 06-07-2023 09:20-0500 Heart rate 89 /min Vinnie Romero [facility] 06-07-2023 09:20-0500 SaO2% (BldA) [Mass fraction] 99 % [facility] Romero [facility] 06-07-2023 09:20-0500 Systolic blood pressure 119 mm[Hg] Vinnie Romero [address] [place] [address] 04-21-2023 08:02-0500 Blood Pressure Location [facility] 04-21-2023 08:02-0500 Diastolic blood pressure 80 mm[Hg] [facility] 04-21-2023 08:02-0500 Heart rate 73 /min [facility] 04-21-2023 08:02-0500 SaO2% (BldA) [Mass fraction] 98 % [facility] 04-21-2023 08:02-0500 Systolic blood pressure 114 mm[Hg] [facility] 02-18-2023 09:29-0400 Blood Pressure Location [facility] 02-18-2023 09:29-0400 Diastolic blood pressure 80 mm[Hg] [facility] 02-18-2023 09:29-0400 Heart rate 102 /min [facility] 02-18-2023 09:29-0400 Respiratory rate 16 /min [place] [facility] 02-18-2023 09:29-0400 SaO2% (BldA) [Mass fraction] 98 % [facility] 02-18-2023 09:29-0400 Systolic blood pressure 120 mm[Hg] [facility] 01-07-2023 10:44-0400 Blood Pressure Location [facility] 01-07-2023 10:44-0400 Diastolic blood pressure 84 mm[Hg] [facility] 01-07-2023 10:44-0400 Heart rate 89 /min [facility] 01-07-2023 10:44-0400 SaO2% (BldA) [Mass fraction] 97 % [facility] 01-07-2023 10:44-0400 Systolic blood pressure 120 mm[Hg] [facility] [place] 12-03-2022 11:28-0400 Blood Pressure Location [facility] 12-03-2022 11:28-0400 Diastolic blood pressure 86 mm[Hg] [facility] 12-03-2022 11:28-0400 Heart rate 97 /min [facility] 12-03-2022 11:28-0400 SaO2% (BldA) [Mass fraction] 96 % [facility] 12-03-2022 11:28-0400 Systolic blood pressure 128 mm[Hg] [facility] 09-29-2022 08:54-0400 Blood Pressure Location [facility] 09-29-2022 08:54-0400 Body temperature 98.78 [degF] [facility] 09-29-2022 08:54-0400 Diastolic blood pressure 82 mm[Hg] [facility] 09-29-2022 08:54-0400 Heart rate 92 /min [facility] 09-29-2022 08:54-0400 SaO2% (BldA) [Mass fraction] 99 % [facility] 09-29-2022 08:54-0400 Systolic blood pressure 118 mm[Hg] [facility] 11-15-2021 19:00-0400 Body height 152.4 cm Melissa Weaver Other [employer] Other 11-15-2021 19:00-0400 Body mass index (BMI) [Ratio] 40.42 kg/m2 Melissa Weaver Other [facility] Other 11-15-2021 19:00-0400 Body temperature 96 [degF] Melissa Weaver Other [facility] Other 11-15-2021 19:00-0400 Body weight 93.9 kg Melissa Weaver Other [employer] Other 11-15-2021 19:00-0400 SaO2% (BldA) [Mass fraction] 98 % Melissa Weaver Other [employer] Other Encounters Encounter Date Encounter Type Care Provider Facility Start: 02-23-2024 ambulatory Clint Caraballoi ty:[facility] Start: 10-16-2023 ambulatory Clint Lee ty:[facility] Start: 08-03-2023 End: 08-03-2023 ambulatory EVELYNE CARCAMO Facility:[facility] Start: 08-03-2023 End: 08-03-2023 Patient encounter procedure Cast Tech Zoe Work Phone: Orthopaedics Comment on above: 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) Start: 07-27-2023 Clinisync Result Encounter Mikal Nas DO Work Phone: [facility] Unsolicited Start: 07-27-2023 Clinisync Result Encounter Mikal Nas DO Work Phone: [facility] External [facility] Unsolicited Start: 07-21-2023 End: 07-21-2023 ambulatory EVELYNE CARCAMO Facility:[facility] Start: 07-21-2023 End: 07-21-2023 Patient encounter procedure [employer] Zoe Work Phone: Orthopaedics Comment on above: 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) Start: 07-21-2023 End: 07-22-2023 ambulatory Clint Ortiz Facility:[facility] Start: 07-20-2023 Telephone encounter Evelyne Carcamo DPM Work Phone: Orthopaedics Comment on above: Patient Request Start: 07-13-2023 End: 07-13-2023 ambulatory EVELYNE CARCAMO Facility:[facility] Start: 06-25-2023 End: 06-26-2023 ambulatory Clint Charles Crotorresjas Facility:[facility] Start: 06-25-2023 End: 06-26-2023 ambulatory Clint Tayjas Facility:[facility] Start: 06-25-2023 End: 06-25-2023 Patient encounter procedure Clint Ortiz [facility] Start: 06-25-2023 End: 06-25-2023 Patient encounter procedure Clint Ortiz [facility] Start: 06-07-2023 End: 06-08-2023 ambulatory Vinnie Romero Facility:[facility] Start: 06-07-2023 End: 06-07-2023 Patient encounter procedure Vinnie Romero [facility] Start: 04-21-2023 End: 04-22-2023 ambulatory Clint Araceli Maggijas Facility:[facility] Start: 04-21-2023 End: 04-21-2023 Patient encounter procedure Clint Ortiz [facility] Start: 04-20-2023 End: 04-21-2023 ambulatory Clint Araceli Esparzatorresjas Facility:[facility] Start: 04-20-2023 End: 04-20-2023 Patient encounter procedure Clint Araceli Ortiz [facility] Start: 02-18-2023 End: 02-19-2023 ambulatory Clint Tayjas Facility:[facility] Start: 02-18-2023 End: 02-18-2023 Patient encounter procedure Clint Charles Magg[facility] Start: 02-18-2023 End: 02-18-2023 Well adult monitoring check done Clint Araceli Maggijas [facility] Start: 01-07-2023 End: 01-08-2023 ambulatory Clint Ortiz Facility:[facility] Start: 01-07-2023 End: 01-07-2023 Patient encounter procedure Clint Ortiz [facility] [place] Start: 12-08-2022 ambulatory Clint Vilmaaidan Facility :[facility] Start: 12-03-2022 End: 12-04-2022 ambulatory Clint Ortiz Facility:[facility] Start: 12-03-2022 End: 12-03-2022 Patient encounter procedure Clint Ortiz [facility] Start: 10-27-2022 End: 10-28-2022 ambulatory Clint Ortiz Facility:[facility] Start: 10-27-2022 End: 10-27-2022 Patient encounter procedure Clint Ortiz [facility] Start: 10-16-2022 End: 10-17-[address] MIKAL LOVELL . Facility: Start: 10-06-2022 End: 10-07-2022 ambulatory Clint Ortiz Facility:[facility] Start: 10-06-2022 End: 10-06-2022 Patient encounter procedure [place] Araceli Ortiz [facility] Start: 09-29-2022 End: 09-30-2022 ambulatory Clint Ortiz Facility:[facility] Start: 09-29-2022 End: 09-29-2022 Patient encounter procedure Clint Ortiz [facility] Start: 09-15-2022 End: 09-16-[address] MIKAL LOVELL . Facility:[facility] Start: 08-26-2022 End: 08-26-[address] MIKAL LOVELL . Facility:[facility] Start: 08-15-2022 ambulatory Clint Ortiz Facility :[facility] Start: 07-15-2022 End: 07-16-[address] MIKAL LOVELL . Facility:[facility] Start: 06-27-2022 End: 06-27-[address] GIOVANI Hare Facility:[facility] Start: 05-24-2022 End: 05-24-2022 ambulatory SHAIKH Higinio DYE Facility:[facility] Start: 05-22-2022 End: 05-23-2022 ambulatory SHAIKH Higinio DYE Facility:[facility] Start: 05-19-2022 End: 05-20-2022 ambulatory SHAIKH Higinio DYE Facility:[facility] Start: 05-12-2022 End: 05-13-2022 ambulatory SHAIKH Higinio DYE Facility:[facility] Start: 04-11-2022 End: 04-12-2022 ambulatory SHAIKH Higinio DYE Facility:[facility] Start: 03-11-2022 End: 03-12-2022 ambulatory SHAIKH Higinio DYE Facility:[facility] Start: 02-10-2022 End: 02-11-2022 ambulatory SHAIKH Higinio DYE Facility:[facility] Start: 01-10-2022 End: 01-11-[address] MIKAL LOVELL . Facility:[facility] Start: 11-15-2021 End: 11-15-2021 ambulatory Melissa Weaver Other [facility] Other Start: 11-15-2021 Office outpatient vi sit 25 minutes Melissa Weaver [facility] Start: 11-14-2021 End: 11-15-2021 ambulatory REEDRUSTAM DYE Facility:[facility] Start: 10-24-2021 End: 10-25-[address] MIKAL LOVELL . Facility:[facility] Start: 08-15-2021 End: 08-15-2021 ambulatory Petros Lion Other [employer] Other Start: 08-15-2021 Office outpatient ne w 30 minutes Petros Lion [facility] Procedures Date Procedure Procedure Detail Performing Clinician Start: 07-27-2023 ALL PROGESTERONE Mikal Lovell DO Work Phone: delivery only Christiano Ortiz Colonoscopy Clint Ortiz Dilation & curettage dx&/ther nonobstetric Clint Ortiz Operation on gallbladder Eriberto Ortiz Structure of carpal canal (body structure) Clint Ortiz Plan of Treatment Date Care Activity Detail Author Start: 08-28-2023 End: 08-28-2023 Patient encounter procedure 08/28/2023 11:10 AM EDT Office Visit [facility] [address] [facility] [address] [place] [address] Sendy Oquendo MD [address] [facility] [address] [place] [address] [facility] Start: 06-15-2023 Depression Assessment Depression Ass essment [facility] Start: 2015 Screening for malign ant neoplasm of cervix HPV Testing [facility] Start: 2006 Screening for malign ant neoplasm of cervix Pap Testing [facility] Start: 2004 Urine microalbumin profile DTaP,Tdap,Td Vaccine (1 - Tdap) [facility] Start: 2003 Hepatitis C screening Hepatitis C Sc reening [facility] Start: 2003 HIV screening HIV Screening [facility] Start: 1985 Covid-19 Vaccine (#1) Covid-19 Vacci ne (#1) [facility] Start: 1985 Hepatitis B Vaccine (1 of 3 - 3-dose series) Hepatitis B Vaccine (1 of 3 - 3-dose series) [facility] [place] [facility] Immunizations Immunization Date Immunization Notes Care Provider [facility] 06-23-2023 influenza, injectabl e, quadrivalent, preservative free [facility] 04-21-2023 influenza, injectabl e, quadrivalent, preservative free [facility] 05-05-2022 influenza virus vacc ine, unspecified formulation [facility] 05-21-2021 influenza virus vacc ine, unspecified formulation [facility] Payers Date Payer Category Payer Unknown [id number] 2019 Medicare [id number] 1985 Unknown [id number] 1985 Unknown [id number] 2.16.84 0.1.650348.3.579.2.593 1985 Unknown [id number] 2.16.84 0.1.132485.3.579.2.593 1985 Unknown [id number] 2.16.84 0.1.019758.3.579.2.593 1985 Unknown [id number] 2.16.84 0.1.688024.3.579.2.593 1985 Unknown [id number] 2.16.84 0.1.226956.3.579.2.593 1985 Unknown [id number] 2.16.84 0.1.793454.3.579.2.593 1985 Unknown [id number] 2.16.84 0.1.347126.3.579.2.593 1985 Unknown [id number] 2.16.84 0.1.448970.3.579.2.593 1985 Unknown [id number] 2.16.84 0.1.526028.3.579.2.593 1985 Unknown [id number] 2.16.84 0.1.779186.3.579.2.593 1985 Unknown [id number] 2.16.84 0.1.193241.3.579.2.593 1985 Unknown [id number] 2.16.84 0.1.144190.3.579.2.593 1985 Unknown [id number] 2.16.84 0.1.911407.3.579.2.593 1985 Unknown [id number] 2.16.84 0.1.933188.3.579.2.593 1985 Unknown [id number] 2.16.8 40.1.151399.3.579.2.727 1985 Unknown [id number] 2.16.8 40.1.983726.3.579.2.72 1985 Unknown [id number] 2.16.8 40.1.007870.3.579.272 1985 Unknown [id number] 2.16.8 40.1.547146.3.579.272 1985 Unknown [id number] 2.16.8 40.1.885149.3.579.2 1985 Unknown [id number] 2.16.8 40.1.212038.3.579.272 1985 Unknown [id number] 2.16.8 40.1.086368.3.579.2 1985 Unknown [id number] 2.16.8 40.1.851684.3.579.2 1985 Unknown [id number] 2.16.8 40.1.541310.3.579.272 1985 Unknown [id number] 2.16.8 40.1.712721.3.579.2 1985 Unknown [id number] 2.16.8 40.1.369260.3.579.2 1985 Unknown [id number] 2.16.8 40.1.110610.3.579.272 1985 Unknown [id number] 2.16.8 40.1.927807.3.579.272 1985 Unknown [id number] 2.16.8 40.1.473831.3.579.272 1985 Unknown [id number] 2.16.8 40.1.340994.3.579.272 1985 Unknown [id number] 2.16.8 40.1.056897.3.579.272 1985 Unknown [id number] 2.16.8 40.1.938456.3.579.2.727 1959 Medicare [id number] 2.1 6.840.1.805201.19 1959 Unknown [id number] 2. 16.840.1.870740.19 1959 Unknown [id number] Social History Date Type Detail Facility Start: 04-15-2023 End: 07-13-2023 Sex Assigned At [facility] Start: 09-29-2022 End: 01-07-2023 Tobacco smoking status Never [facility] Tobacco Current vaping o r e-cigarette use Smokeless Tobacco Use:. Vaping, 12 per day. Ready to change: No. [facility] Tobacco smoking status No Smokin g Status Entered [facility] Start: 11-21-2022 End: 06-07-2023 Tobacco smoking status Ex-smoker (finding) [facility] Tobacco smoking stat [facility] Tobacco smoking consumption unknown [facility] Start: 04-15-2023 End: 07-13-2023 History of Social function [facility] Start: 1985 Sex Assigned At Not on file [facility] History of tobacco use Current smoker [facility] History of tobacco use Cigarette Smoker [facility] Start: 11-21-2022 Tobacco use and exposure User of smokeless tobacco [facility] Start: 04-15-2023 Alcohol intake Current drinker of alcohol (finding) [facility] Start: 11-21-2022 Tobacco Comment I now use a vape [facility] Start: 11-21-2022 Alcohol Comment Rare [facility] Start: 11-14-2022 Gender identity Identifies as female gender (finding) [facility] Start: 11-14-2022 Sexual orientation Heterosexual (finding) [facility] Functional Status Date Assessment Result Facility 06-07-2023 Functional Status N/A [facility] 04-21-2023 Functional Status N/A [facility] 02-18-2023 Functional Status N/A [facility] 01-07-2023 Functional Status N/A [facility] [place] 12-03-2022 Functional Status N/A [facility] 09-29-2022 Functional Status N/A [facility] Clinical Notes 08-15-2021 to 08-03-2023 Antonio Moreno Cast Tech - 08/03/2023 3:45 PM ESTLopeAntonio linares Cast Tech - 07/21/2023 3:40 PM ESTTelephone Encounter - Shahram Lee OCCA - 07/20/2023 11:19 AM ESTLaboratory Note Date & Type Note Facility 08-03-2023 Note HNO ID: [id number] Author: ANTONIO MORENO Cast Tech Service: ? Author Type: Bowl Topper Type: Progress Notes Filed: 08/03/2023 15:47 Note Text: Ms. Llamas has been informed that the supervising physician today is DOMINICK Baker. I am carrying out the treatment plan of Dr. Carcamo. Patient in today for scheduled appointment. Cast removed. Left leg cleansed with Cavilon. Applied A Short Leg Weightbearing Cast to the left leg. Instructions on cast care given. Will f/u as scheduled/prn. SHAKIRA Mejía [facility] 08-03-2023 History of Presen t illness Narrative Ms. Llamas has been informed that the supervising physician today is DOMINICK Baker. I am carrying out the treatment plan of Dr. Carcamo. Patient in today for scheduled appointment. Cast removed. Left leg cleansed with Cavilon. Applied A Short Leg Weightbearing Cast to the left leg. Instructions on cast care given. Will f/u as scheduled/prn. SHAKIRA Mejía documented in this encounter [facility] 07-21-2023 Note HNO ID: [id number] Author: ANTONIO MORENO Cast Tech Service: ? Author Type: Bowl Topper Type: Progress Notes Filed: 07/21/2023 15:41 Note Text: Ms. Llamas has been informed that the supervising physician today is Dr. Lynch. I am carrying out the treatment plan of Dr. Carcamo. Patient came in today c/o of Cast being loose. Cast was removed and skin inspected. Skin appeared normal. Cast was reapplied. Patient instructed follow-up with doctor during next scheduled appointment/prn. SHAKIRA Mejía [facility] 07-21-2023 History of Presen t illness Narrative Ms. Llamas has been informed that the supervising physician today is Dr. Lynch. I am carrying out the treatment plan of Dr. Carcamo. Patient came in today c/o of Cast being loose. Cast was removed and skin inspected. Skin appeared normal. Cast was reapplied. Patient instructed follow-up with doctor during next scheduled appointment/prn. SHAKIRA Mejía documented in this encounter [facility] 07-20-2023 Miscellaneous Notes Called patient and offered a same day appointment. Patient requested to come in tomorrow due to another appointment. Patient was scheduled accordingly. Informed patient she can call the scheduling line at anytime and request a cast room appointment and they should be able to assist. Patient does not need an appointment with the doctor. Dominique is calling Evelyne Carcamo DPM today stating that her cast was starting to be loose on Thursday and her ankle started to hurt. She want to know if she can come in before her scheduled cast appointment on 08/03/23 to have cast changed. Please advise. Patient has been identified by name and birthdate. Duration of symptoms: 2 days Person calling: self Call patient at: on cell [phone] (home) Was an appointment scheduled: No Closing statement: Symptom Call: Thank you for calling [facility], your call is very important. A nurse will call in approximately 2-4 hours during business hours. If this is an emergency, please contact 911. Cheyenne Mccarty documented in this encounter [facility] 07-13-2023 Note HNO ID: [id number] Author: ANTONIO MORENO Cast Tech Service: ? Author Type: Bowl Topper Type: Progress Notes Filed: 07/13/2023 15:22 Note Text: Applied A Short Leg Weightbearing Cast to the left leg. Instructions on cast care given. A medium Cast Shoe was dispensed. Will f/u as scheduled/prn. Antonio Moreno, [facility] 07-13-2023 Note HNO ID: [id number] Author: EVELYNE CARCAMO DPM Service: ? Author Type: Physician Type: Progress Notes Filed: 07/13/2023 15:50 Note Text: Patient Visit for Dominique Llamas 1985 38 year old female SUBJECTIVE: Chief Complaint: Patient presents with: Left Foot - New, Pain Right Ankle - New, Pain Left Ankle - New, Pain Right Foot - New, Pain Pain Scales: Verbal (Numeric Rating or Visual Analog Scale) Pain Level: 7 Pain Location: (bilateral foot/ankle) Description: Sharp Duration Amount of Time: 9 Duration Units: Weeks Frequency: Continuous Intervention/Comfort measure: Heat, Medication Comments: She is here for bilateral foot and ankle pain. No new or recent injury. Pain increases with activity and cold. Additional HPI: History of bilateral club foot surgery x 2 - 1983, 86 Pain worse with activity throughout childhood Now with flare of symptoms LEFT hind foot worse than RIGHT Difficulty walking PCP: No primary care provider on file. No past medical history on file. Current Outpatient Medications Medication Sig metFORMIN (GLUCOPHAGE) 500 mg tablet Take 500 mg by mouth two times a day. albuterol HFA (PROVENTIL HFA, VENTOLIN HFA) 90 mcg/actuation inhaler Inhale 1 Puff as instructed as needed. busPIRone (BUSPAR) 10 mg tablet Take 1 tablet by mouth every 12 hours. DULoxetine (CYMBALTA) 30 mg capsule Take 1 capsule by mouth once daily. letrozole (FEMARA) 2.5 mg tablet Take 2 tablets by mouth once daily. levothyroxine (SYNTHROID) 75 mcg tablet Take 1 tablet by mouth every afternoon. methylphenidate ER (METADATE ER) 20 mg ER tablet Take 1 tablet by mouth every afternoon. No current facility-administered medications for this visit. ALLERGIES Allergen Reactions Ziprasidone Anaphylaxis Geodon No past surgical history on file. No family history on file. Tobacco Use: Not on file REVIEW OF SYSTEMS: The remainder of the ROS was reviewed with the patient and is negative except as noted. OBJECTIVE: General: Pleasant in no acute distress Lower extremity exam: Vascular exam: Normal vascular exam, palpable pluses with brisk capillary fill Neurological exam: Normal neurological exam, gross epicritic sensation intact Dermatological exam: Well healed scars from previous surgery Other Normal exam without rashes or lesions of skin. No evidence of evidence of petechiae, purpura, telangiectasia Musculoskeletal exam: Limited range of motion ankle bilateral Intact mid tarsal joint RIGHT FOOT Some limited range of motion mid tarsal joint LEFT FOOT with forefoot varus / flexible Eversion bilateral hind foot with loss of motion talo calcaneal joint Tenderness to palpation sinus tarsi RIGHT Tenderness to palpation posterior LEFT hind foot with prominence soft tissue and bone inferior to lateral malleolus LABS: Most recent labs reviewed LABORATORY STUDIES: No results for input(s): HB , WBC , PLT , WSR , CRP , CCPABG , RF , INR , CREATININE , ALB , PROT , URICACID , HBA1C , VITD25 in the last 65318 hours. X-ray deformity foot and ankle consistent with clubfoot Flat top talus, severe degenerative joint disease talo calcaneal joint , degenerative joint disease mid tarsal joint ASSESSMENT: Q66.89 Club foot of both lower extremities (primary encounter diagnosis) M19.072 DJD (degenerative joint disease), ankle and foot, left M19.071 DJD (degenerative joint disease), ankle and foot, right M79.671, M79.672 Pain in both feet PLAN: Explained to the patient etiology and treatment plan. Treatment options discussed at length Risks Benefits Alternatives relative to procedure discussed SLWC (Short Leg Walking Cast ) applied to LEFT lower extremity - per patient request , most symptomatic side: Due to the patients musculoskeletal symptoms various treatment options were discussed. The risks and benefits of cast immobilization including but not limited to the risk of Deep Venous Thrombosis, nerve injury, non resolution of the sypmtoms, the need for reduced activity with the cast, the importance of keeping the affected lower extremity elevated to chest level while at rest and to avoid having the cast dependent for extended periods of time were discussed. The patient understands that my recommendation is to not drive due to potential risks of driving with a cast. The patient also understands that they should use a cane, crutches, walker, or wheel chair or other supportive device as necessary to allow for reduction / resolution of symptoms. The patient understands that if they walk excessively in the cast that the treatment will be much less likely to be successful. Following a discussion of all risks and benefits the patient requested to proceed with application of a Short leg walking cast. The patient will follow up as scheduled or sooner if problems arise. If not improved recommend follow up and further work up I discussed wit (more content not included)... [facility] 07-13-2023 Note HNO ID: [id number] Author: MAVIS REEDER RT(Mainor) Service: ? Author Type: Technologist Type: Progress Notes Filed: 07/13/2023 14:14 Note Text: Radiology Service Progress Note PATIENT NAME: Dominique Llamas DATE OF SERVICE: July 13, 2023 TIME: 2:14 PM PATIENT IDENTITY VERIFICATION COMPLETED USING TWO (2) IDENTIFIERS: Name and Date of confirmed by patient verbally. FALL SCREENING: Has the patient had 2 falls in the last year or 1 fall with injury or currently using an Ambulatory Assistive Device (Walker, Cane, Wheelchair, Crutches, etc.)? No PATIENT GENDER DATA: Female. status: : No status: NO. PATIENT RELEVANT IMPLANT DATA REVIEWED: Not Applicable PATIENT PRESENTS WITH AN IMPLANTABLE OR ATTACHED OPTICAL FABRICATION TECHNICIAN: No RADIOLOGY DEPARTMENT: General X-ray: Exam(s) Completed: Lower Extremity X-Ray(s): Ankle, Bilateral and Foot, Bilateral PERIPHERAL IV DATA: Not applicable SIGNED BY: RT Karmen(R) July 13, 2023 2:14 PM [facility] 06-25-2023 Hospital Discharg e instructions Patient Education 06/25/2023 15:58:28 Heat Therapy, Utxd-du-Wwgq Heat Therapy Heat therapy can help ease [...] provider. Document Revised: 04/03/2021 Document Reviewed: 04/03/2021 [employer] Patient Education 2022 [employer]. Follow Up Care 06/22/2023 09:04:37 With:Clint Ortiz DO, FAM, PED Address: [address] [place] [address] [phone] When:1 month Comments:1-2 month f/u - 20 min slot [facility] [place] 02-18-2023 Hospital Discharg e instructions Patient Education 02/18/2023 10:46:36 Exercising to [...] health care provider or diet and nutrition services manager (dietitian). This may include: ?Eating fewer calories. [...] provider. Document Revised: 07/28/2021 Document Reviewed: 07/28/2021 [employer] Patient Education 2022 [employer] 02/18/2023 10:46:33 BMI for Adults BMI [...] numbers. This can be done either in [place] ([place] or metric measurements. Note that charts and online BMI calculators are available to help you find your BMI quickly and easily without having to do these calculations yourself. To calculate your BMI in [place] ([place] measurements: 1.Measure your weight in pounds [...] Centers for Disease Control and Prevention: www.cdc.gov [place] Heart Association: www.heart.org National Heart, Lung, and Blood [place]: www.nhlbi.nih.gov Summary Body mass index (BMI) is a number that is calculated from a person's weight and height. BMI may help estimate how much of a person's weight is composed of fat. BMI can help identify those who may be at higher risk for certain medical problems. BMI can be measured using [place] measurements or metric measurements. BMI charts are used to identify whether you are underweight, normal weight, overweight, or obese. This information is not intended to replace advice given to you by your health care provider. Make sure you discuss any questions you have with your health care provider. Document Revised: 02/22/2020 Document Reviewed: 12/30/2019 [employer] Patient Education 2022 [employer]. 02/18/2023 10:19:14 Steps to Quit Smoking, Nmmk-yw-Cwrh Steps to Quit Smoking Smoking tobacco is [...] a prescription, and some you can buy zshs-tsk-igiqdqo. Some medicines may contain a drug called [...] you. Call a phone quitline, such as 3-598-UWTW-NOW, reach out to support groups, or work [...] provider. Document Revised: 05/23/2022 Document Reviewed: 05/23/2022 [employer] Patient Education 2022 [employer]. 02/18/2023 10:19:12 Steps to Quit Smoking Steps [...] require a prescription. You can also purchase zlgl-rqr-owgautg medicines. Medicines may have nicotine in them [...] and encouragement. Call telephone quitlines, such as 8-970-MRAC-NOW, reach out to support groups, or work [...] provider. Document Revised: 05/23/2022 Document Reviewed: 05/23/2022 [employer] Patient Education 2022 [employer]. 02/18/2023 10:19:04 Major Depressive Disorder, Adult Major [...] things, which may include: Your personality traits. [place] or conditioned behaviors or thoughts or feelings [...] your health care provider. General instructions Take sowm-fhk-pxpokvo and prescription medicines only as told by your health care provider. Eat a healthy diet and get plenty of sleep. Consider joining a support group. Your health care provider may be able to recommend one. Keep all follow-up visits as told by your health care provider. This is important. Where to find more information National [place] on Mental Illness: www.leobardo.org [place]. National [place] of Mental Health: www.nimh.nih.gov Contact a health [...] department or: Call your local emergency services (381 in the [place] Call a suicide crisis helpline, such as the National Suicide Prevention Lifeline at or 508 in the [place]. This is open 24 hours a day in the [place]. Text the Crisis Text Line at 187682 (in the [place].S.). Summary Major depressive disorder [...] provider. Document Revised: 12/25/2021 Document Reviewed: 05/12/2020 [employer] Patient Education 2022 [employer]. 02/18/2023 10:19:00 Health Risks of Smoking Health [...] Department of Health and Human Services: www.smokefree.gov [place] Lung Association: www.freedomfromsmoking.org [place] Heart Association: www.heart.org Where to find more [...] provider. Document Revised: 06/03/2022 Document Reviewed: 06/03/2022 [employer] Patient Education 2022 [employer]. [facility] 09-29-2022 Evaluation + Plan note Future Scheduled [id number] 09/29/22TSH With T4fr Reflex 09/29/22Comprehensive Metabolic Panel 09/29/22Lipid Panel 09/29/22 [facility] 11-15-2021 Evaluation note Encounter Date Diagnosis Assessment [...] treatment plan. Patient left in stable condition [facility] 03-03-2022 Evaluation note* Encounter Date Diagnosis [...] of both lower extremities (ICD-10 - Q66.89) [facility] Evaluation + Plan note Future Appointments Appointment Date:10/06/2022 09:30:00 AM Scheduled Provider: Location:[facility] Appointment Type:PUL Pulmonary Function Test (FT) Future Scheduled Tests Laboratory* HgbA1c 09/29/22 * TSH With T4fr Reflex 09/29/22 * Comprehensive Metabolic Panel 09/29/22 * Lipid Panel 09/29/22 [facility] Evaluation + Plan note Future Appointments Appointment Date:12/03/2022 10:40:00 AM Scheduled Provider:Clint Ortiz DO Location:[facility] Appointment Type: Open Future Scheduled Tests Laboratory* HgbA1c 09/29/22 * TSH With T4fr Reflex 09/29/22 * Comprehensive Metabolic Panel 09/29/22 * Lipid [facility]29[facility] Future App[facility]ments Appointment Date:01/07/2023 10:20:00 AM Scheduled Provider:Clint Ortiz DO Location:[facility] Appointment Type: Open [facility] Evaluation + Plan note Future Appointments Appointment Date:02/18/2023 09:30:00 AM Scheduled Provider: Location:[facility] Appointment Type: Medicare Wellness Initial Appointment Date:02/18/2023 11:00:00 AM Scheduled Provider:Clint Ortiz DO Location:[facility] Appointment Type: Open Future Scheduled Tests Laboratory* T3 Total 02/05/23 * Basic Metabolic Panel 01/07/23 * Magnesium Level 01/07/23 * Thyroid Stimulating Hormone 02/05/23 * Free T4 02/05/23 [facility] [place] Evaluation + Plan note Future Appointments Appointment Date:04/21/2023 08:00:00 AM Scheduled Provider:Clint Ortiz DO Location:[facility] Appointment Type: Open Appointment Date:02/23/2024 11:00:00 AM Scheduled Provider: Location:[facility] Appointment Type: Medicare Wellness Subsequent Future Scheduled Tests Laboratory* T3 Total 02/05/23 * Basic Metabolic Panel 01/07/23 * Magnesium Level 01/07/23 * Thyroid Stimulating Hormone 02/05/23 * Free T4 02/05/23 [facility] Evaluation + Plan note Future Appointments Appointment Date:04/21/2023 08:00:00 AM Scheduled Provider:Clint Ortiz DO Location:[facility] Appointment Type: Open Appointment Date:02/23/2024 11:00:00 AM Scheduled Provider: Location:[facility] Appointment Type: Medicare Wellness Subsequent Diagnostic Tests Pending * T3 Total [facility]20[facility] Future Appointments Appointment Date:07/21/2023 08:00:00 AM Scheduled Provider:Clint Ortiz DO Location:[facility] Appointment Type: Open Appointment Date:02/23/2024 11:00:00 AM Scheduled Provider: Location:[facility] Appointment Type: Medicare Wellness Subsequent Future Scheduled Tests Laboratory* TSH With T4fr Reflex 05/19/23 [facility] Evaluation + Plan note Future Appointments Appointment Date:07/21/2023 08:00:00 AM Scheduled Provider:Clint Ortiz DO Location:[facility] Appointment Type: Open Appointment Date:02/23/2024 11:00:00 AM Scheduled Provider: Location:[facility] Appointment Type: Medicare Wellness Subsequent [facility] Evaluation note* Diagnosis Club foot of both lower extremities- [facility] both lower [facility]- [facility] Narrative - Reported* Type Description Date Medical History chronic depression Medical History PCOS Medical History fibromyalgia Surgical History corrected clubbed feet Surgical History wisdom teeth Surgical History MRSA removal right thigh Surgical History Surgical History DNC x2 Surgical History Cystectomy left ovay Surgical History gall bladder Surgical History right carpal tunnel Surgical History GI scope with 2 biopsy [facility] Hospital course Narrative No data available for this section [facility] Hospital Discharge instructions No data available for this section [facility] Progress note No data available for this section [facility] Reason for referral (narrative) Referred by: Clint Ortiz DO [facility] Summary Purpose Family History No Family History Records FoundNo Family History Records Found No data available for this section No data available for this section No data available for this section No data available for this section No data available for this section No data available for this section No Family History Records FoundNo Family History Records Found Advance Directives No Advanced Directives Records FoundNo Advanced Directives Records FoundNo Advanced Directives Records FoundNo Advanced Directives Records Found Reason for Referral Reason please refer to Vernon mancuso for establishment of care. Hx of bilateral club foot, hx of 2 surgeries during childhood. Diagnosis 1 Club foot of both lo wer extremities (Q66.89) Referral Organization [facility] Referring Provider First Name Cheyenne Referring Provider Last Name Anh Referring Provider Specialty Nurse Pract itioner Referred Organization [facility] Referred Address [address], [place],[address] Referred Provider Specialty Podiatry - S urgical Chiropody Referral Priority Routine General Notes Cheyenne Avila 09:30:01 AM >referral is ready to be sent once office note is completedCheyenne Avila 08/19/2021 08:34:16 AM >note is not completed yet Additional Source Comments INFORMATION SOURCE (unrecogn ized section and content) DATE CREATED AUTHOR 08/27/2021 [facility] DATE CREATED AUTHOR AUTHOR'S ORGANIZ ATION 10/23/2022 [facility] DATE CREATED AUTHOR AUTHOR'S ORGANIZ ATION 08/02/2023 [facility] DATE CREATED AUTHOR AUTHOR'S ORGANIZ ATION 08/04/2023 [facility] REASON FOR VISIT (unrecogniz ed section and content) Reason Comments Patient Request Patient Care team informatio n (unrecognized section and content) Global Ceo Relationship Specialty Start Date End Date Clint Ortiz II, DO [address] [place] [address] A [place] [address] Referring Family Medicine 07/06/23 Global Ceo Relationship Specialty Start Date End Date Clint Ortiz DO PCP - General 11/21/22 Global Ceo Relationship Specialty Start Date End Date Clint Ortiz ASM[place]ADO [address] [facility] [place] [address] Referring Family Medicine 07/06/23 Source Comments (unrecognize d section and content) In the event this informatio n is protected by the Federal Confidentiality of Alcohol and Drug Abuse Patient Records regulations: The Federal rules restrict any use of the information to criminally investigate or prosecute any alcohol or drug abuse patient.[facility] the event this information is protected by the Federal Confidentiality of Alcohol and Drug Abuse Patient Records regulations: The Federal rules restrict any use of the information to criminally investigate or prosecute any alcohol or drug abuse patient.[facility] Center[facility] the event this information is protected by the Federal Confidentiality of Alcohol and Drug Abuse Patient Records regulations: The Federal rules restrict any use of the information to criminally investigate or prosecute any alcohol or drug abuse patient.[facility] FOR RECORDS PERTAINING TO PATIENTS WHO ARE [...] BE BASED ON THE PRIMARY CLINICAL RECORDS. [facility]. provides no warranty or guarantee of the accuracy or completeness of information in this document.
--- NOTE | 2023-08-10 10:01 | FL_ITS ---
[address] [address] Patient Name: ALBERTA LLAMAS MRN: [id number] date: 1985 Sex: F Assigned Patient Location: LAB Current Patient Location: LAB Accession/Order Number: [id number] Exam Date: 08/10/2023 10:45 Report Date: 08/10/2023 11:15 At the request of: LEE SERRATO Procedure: FL Hysterosal cath placement EXAMINATION: FL hysterosalpingography, FL Hysterosal cath placement HISTORY: Fallopian Disorder N83.9 COMPARISON: No relevant comparison available. TECHNIQUE: Informed consent was obtained. A sterile vaginal speculum was introduced and, following cleansing of the cervix, a balloon-tipped catheter was inserted into the endometrial cavity. The procedure was then completed in the usual manner with water-soluble contrast. Standard level fluoroscopic mode of operation utilized. FINDINGS: FALLOPIAN TUBES: Initial exam demonstrated occlusion of both fallopian tubes medially. After significant volume and pressure opening of the right fallopian tube was observed with spillage of contrast into the peritoneal cavity. The left fallopian tube remained occluded. ENDOMETRIAL CAVITY: No scarring, filling defects, or dilatation. OTHER: Negative. FL/FL Hysterosal cath placement IMPRESSION: Initial occlusion of the right fallopian tube which eventually opened with significant pressure and volume Complete occlusion of the left fallopian tube Electronically authenticated by: NICHOLAS LU Date: 08/10/2023 11:15
--- NOTE | 2023-08-10 10:01 | FL_ITS ---
[address] [address] Patient Name: ALBERTA LLAMAS MRN: [id number] date: 1985 Sex: F Assigned Patient Location: LAB Current Patient Location: LAB Accession/Order Number: [id number] Exam Date: 08/10/2023 10:45 Report Date: 08/10/2023 11:15 At the request of: LEE SERRATO Procedure: FL hysterosalpingography EXAMINATION: FL hysterosalpingography, FL Hysterosal cath placement HISTORY: Fallopian Disorder N83.9 COMPARISON: No relevant comparison available. TECHNIQUE: Informed consent was obtained. A sterile vaginal speculum was introduced and, following cleansing of the cervix, a balloon-tipped catheter was inserted into the endometrial cavity. The procedure was then completed in the usual manner with water-soluble contrast. Standard level fluoroscopic mode of operation utilized. FINDINGS: FALLOPIAN TUBES: Initial exam demonstrated occlusion of both fallopian tubes medially. After significant volume and pressure opening of the right fallopian tube was observed with spillage of contrast into the peritoneal cavity. The left fallopian tube remained occluded. ENDOMETRIAL CAVITY: No scarring, filling defects, or dilatation. OTHER: Negative. FL/FL hysterosalpingography IMPRESSION: Initial occlusion of the right fallopian tube which eventually opened with significant pressure and volume Complete occlusion of the left fallopian tube Electronically authenticated by: NICHOLAS LU Date: 08/10/2023 11:15
[2023-08-10 10:17] LABS: HCG Quantitative <1 mIU/mL
--- NOTE | 2023-08-10 11:20 | SUR.PREOP ---
08/05/23 Pt instructed on procedure, date, time, and prep.
--- NOTE | 2023-08-10 11:45 | PC.NURSE ---
1055 Pt denies any vaginal bleeding at all and only has mild abdominal cramping.
--- OUTSIDE RECORDS SUMMARY | 2023-08-11 09:51 | XMS_ITS | CCD ---
Author Name Unknown Address [address] [place] [address] Organization [facility] Care Team Providers Care Third Rigger Name Role Phone Petros Lion Unavailable Melissa [...] Unavailable NAS ., DR HOWARD Attending Unavailable [facility] Primary [facility] Unavailable NAS ., [...] Unavailable NAS ., DR HOWARD Consulting Unavailable [facility], [facility] H Primary Care Unavailable NAS ., DR HOWARD Attending Unavailable NAS ., DR HOWARD Admitting Unavailable NAS ., DR HOWARD Consulting Unavailable NAS ., DR HOWARD Attending Unavailable [facility], DR RUANO Primary Care Unavailable FAWAD, REED H Consulting Unavailable FAWAD, REED H Attending Unavailable FAWAD, REED H Admitting Unavailable [facility], RE[facility] H Primary Care Unavailable Clint Ortiz Primary Care Physician Unavail able Angel TIAN DO, Robert James Unavailable [phone] Clint Ortiz DO Primary Care Provider [phone] Clint Ortiz Attending Unavailable Clint Ortiz Attending [...] [ziprasidone] Drug Allergy 3 anaphylaxis, Anaphylaxis (disorder) [facility] Primary Care (2 sources) ziprasidone; Translations: [Geodon] Drug Allergy [facility] Repository (1 source) Misc-Drug Drug allergy (disorder) [facility] Repository (1 source) ziprasidone Drug Allergy 3 [...] qAM, # 30 cap(s), Refills(s) 5, Pharmacy: [facility]/pharmacy #[id number], 158, cm, 09/29/22 9:07:00 EDT, [...] BID, # 60 cap(s), Refills(s) 2, Pharmacy: [facility]/pharmacy #[id number], 155, cm, 06/25/23 15:06:00 EST, [...] Drug Class(es) Dates Sig (Normalized) Sig (Original) [id number] 200 actuat albuterol 0.09 mg/actuat metered dose [...] puff(s), Inhalation, q6hr, 8.5 gm, Refill(s) 11, [facility]/pharmacy #6173, 158, cm, 04/21/23 8:07:00 EST, Height/Length Dosing, 86, kg, 04/21/23 8:07:00 EST, Weight Dosing Start Date: 05/04/23 Status: Ordered Start: 10-29-2022 take 8.5 g by inhala tion every six hours Albuterol (Eqv-ProAir HFA) 90 mcg/inh inhalation aerosol 180 mcg, 2 puff(s), Inhalation, q6hr, 8.5 gm, Refill(s) 11, [facility]/pharmacy #3471, 158, cm, 09/29/22 9:07:00 EDT, [...] BID, # 60 tab(s), Refills(s) 5, Pharmacy: [facility]/pharmacy #6173, 158, cm, 04/21/23 8:07:00 EST, [...] on above: Take [address] [facility] once daily. levothyroxine sodium 0.075 mg oral tablet (20 sources) l-Thyroxine Start: take 1 tablet by mouth once levothyroxine (SYNTHROID) 75 mcg tablet Take 1 tablet by mouth every afternoon. 0 05/20/2023 Active Start: 04-21-2023 take 1 tablet by rossnaa th once daily levothyroxine 75 mcg (0.075 mg) Tab 75 mcg = 1 tab(s), Oral, Daily, # 30 tab(s), Refills(s) 5, Pharmacy: [facility]/pharmacy #6173, 158, cm, 04/21/23 8:07:00 EST, Height/Length Dosing, 86, kg, 04/21/23 8:07:00 EST, Weight Dosing Start Date: 04/21/23 Status: Ordered Start: 01-07-2023 take 1 tablet by rossana th once daily levothyroxine 88 mcg (0.088 mg) Tab 88 mcg = 1 tab(s), Oral, Daily, # 30 tab(s), Refills(s) 5, Pharmacy: [facility]/pharmacy #6173, 158, cm, 01/07/23 10:49:00 EDT, Height/Length Dosing, 86.3, kg, 01/07/23 10:49:00 EDT, Weight Dosing Start Date: 01/07/23 Status: Ordered Start: 11-21-2022 take 1 tablet by rossana once daily levothyroxine 100 mcg (0.1 mg) Tab 100 mcg = 1 tab(s), Oral, Daily, # 90 tab(s), Refills(s) 4, Pharmacy: [facility]/pharmacy #[id number], 158, cm, 09/29/22 9:07:00 EDT, [...] Daily, # 30 tab(s), Refills(s) 0, Pharmacy: [facility]/pharmacy #6173, 158, cm, 04/21/23 8:07:00 EST, Height/Length Dosing, 86, kg, 04/21/23 8:07:00 EST, Weight Dosing Start Date: 05/12/23 Status: Ordered Start: 04-08-2023 take 1 tablet by rossana th once daily methylphenidate 20 mg ER Tab 20 mg = 1 tab(s), Oral, Daily, # 30 tab(s), Refills(s) 0, Pharmacy: [facility]/pharmacy #6177, 158, cm, 02/18/23 10:07:00 EDT, Height/Length Dosing, 85.9, kg, 02/18/23 10:07:00 EDT, Weight Dosing Start Date: 04/08/23 Status: Ordered Start: 01-05-2023 take 1 tablet by rossana once daily methylphenidate 20 mg ER Tab 20 mg = 1 tab(s), Oral, Daily, # 30 tab(s), Refills(s) 0, [facility] 158, cm, 02/18/23 10:07:00 EDT, Height/Length Dosing, 85.9, kg, 02/18/23 10:07:00 EDT, Weight Dosing Start Date: 02/18/23 Status: Ordered Start: 12-03-2022 take 1 tablet by rossana once daily methylphenidate 10 mg oral tablet, extended release 10 mg = 1 tab(s), Oral, Daily, # 30 tab(s), Refills(s) 0, [id number], 158.3, cm, 12/03/22 11:34:00 EDT, [...] Other nervous system disorders (1 source) 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; Translations: [Personal history of other diseases [...] 02-18-2023 Episodic Other skin disorders (8 sources) Edwall - lesion 02-18-2023 Episodic Other skin disorders [...] 11-10-2022 11-10-2022 Chronic Other 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 Carcamo - [facility] Operator - Dr. Lovell ENT - Dr. Oquendo - [facility] staff / Chief Complaint confirmed with the [...] Daily, # 30 tab(s), Refills(s) 5, Pharmacy: [facility]/pharmacy #6173, 155, cm, 07/21/23 8:08:00 EST, [...] counseled o (more content not included)... Normal [facility] Comment on above: Result Comment: Elec tronically Signed By: Clint Ortiz DO\Date and Time Signed: 07/24/23 18:47 EST TOLUOVon 07-21-2023 CNOV Office Visit (LOORRM ) DOMINIQUE LLAMAS ([id number]) 1985 F Date Time Provider Department 07/21/23 [...] Encounter Status:Closed by ANTONIO MORENO on 07/21/23 [facility] Patient Educationon 07-21-19 Patient [facility] Att[facility] Deficit Hyperactivity Disorder, Adult Attention deficit [...] primary care provider or a mental health customer care representative. Your health care provider may use a [...] Behavioral management. You may work with a athletic coach who is specially trained to help people with ADHD manage and organize activities and function more effectively. Follow these instructions at home: Medicines ? Take cclw-hlt-xjqnqrr and prescription medicines only as told by [...] Follow th (more content not included)... Normal [facility] Christ 07-20-2023 EMMANUELLE Telephone (INDIRAORRM) DOMINIQUE LLAMAS ([id number]) 1985 F Date Time Provider Department 07/20/23 [...] calling: self Call patient at: on cell [phone] (home) Was an appointment scheduled: No Closing statement: Symptom Call: Thank you for calling [facility], your call is very important. A nurse [...] Never Reviewed Reason for Visit: Patient Request [[id number]] Prescriptions as of 07/20/2023 - albuterol HFA [...] Encounter Status:Closed by SHAHRAM LEE on 07/20/23 [facility] CNOVon 07-13-2023 CNOV Office Visit (LOORRM ) FARHADDOMINIQUE Whipple ([id number]) 1985 F Date Time Provider Department 07/13/23 [...] Status:Closed by ANTONIO MORENO on 07/13/23 Normal [facility] CNOV Office Visit (LOORRM ) DOMINIQUE LLAMAS ([id number]) 1985 F Date Time Provider Department 07/13/23 [...] , HBA1C , VITD25 in the last 93681 hours. X-ray deformity foot and ankle consistent [...] proceed wit (more content not included)... Normal [facility] XR ANKLE 3V AP/LAT/OBL BILon 07-13-2023 XR [...] described. Findings suggesting chronic left Achilles tendinosis. Globe Changer: ALEXI Transcribe Date/Time: Jul 13 2023 2:49P Dictated by : HECTOR KRUSE MD This examination was interpreted and the report reviewed and electronically signed by: SELIN RIGGS MD on Jul 13 2023 5:42PM EST [id number] Normal [facility] XR FOOT 3V AP/LAT/OBL BILon 07-13-2023 XR [...] described. Findings suggesting chronic left Achilles tendinosis. Globe Changer: ALEXI Transcribe Date/Time: Jul 13 2023 2:49P Dictated by : HECTOR KRUSE MD This examination was interpreted and the report reviewed and electronically signed by: SELIN RIGGS MD on Jul 13 2023 5:42PM EST [id number] Normal [facility] Physician Referralon 024 Physician Referral [id number]# 1.00TIFF Normal [facility] Family Medicine Office/Clini c Noteon 06-27-2023 [...] 1 month [address] [place] [address] [id number] Additional Instructions: 1-2 month f/u - 20 min slot Patient Education Heat Therapy, Wzmq-ao-Wxma Problem List/Past Medical History Ongoing ADHD Ankle swelling Anxiety Asthma Bilateral club feet Edwall of foot Fibromyalgia History of foot surgery History of migraine History of posttraumatic stress disorder (PTSD) Hypokalemia Hypothyroidism Insulin resistance Mild recurrent major depression PCOS (polycystic ovarian syndrome) Smoker Thyroid nodule Historical No qualifying data Procedure/Surgi (more content not included)... Normal [facility] Comment on above: Result Comment: Elec [...] Ortiz FINAL REPORT Dictated: 06/26/2023 3:57 pm Yobain Black MD Signed (Electronic Signature): 06/26/2023 3:57 pm Signed by: Yobani Black MD Transcribed by: JOVANNY Technologist: MAYELIN Technical Comments Radiation Dose: Ka,r in mGy = . DAP = . Normal [facility] CHEMISTRYOrdered By: SYSTEM SYSTEM on 06-25-2023 Free T4 [Mass/Vol] 1.19 ng/dL Normal 0.58 - 1. 64 ng/dL Remisol Chem TSH Qn 0.14 m[IU]/L Low 0.34 - 5.60 mcIU/mL Remisol Chem Consent for Treatmenton 06-15 Consent for Treatment [id number]#1 .00TIFF Normal [facility] Free T4on 06-25-2023 Free T4 [Mass/Vol] 1.19 ng/dL Normal 0.58-1.64 [facility] Comment on above: Order Comment: Free T4 added by Discern Rule due to a TSH result of <0.34 or >5.60. Performed By: #### 1 [id number], [id number] ####[facility] [address] [place] [address] Patient Educationon 06-25-19 24 Patient Education Physical [...] provider. Document Revised: 04/03/2021 Document Reviewed: 04/03/2021 [employer] Patient Education ? 2022 [employer] Normal [facility] TSH With T4fr Reflexon 06-25 TSH Qn 0.14 m[IU]/L Low 0.34-5.60 [facility] Comment on above: Performed By: #### 1 [id number], [id number] ####[facility] [address] [place] [address] Ambulatory Visit Summaryon 1 08-08-2022 Ambulatory Visit Summary DOMINIQUE LLAMAS :1985 Visit Date:06/07/2023 Ambulatory Visit Instructions Your Care Team Attending Physician - Nick TAN, Vinnie W. Primary Care Physician - Clint Ortiz DO This Is Your Medications List [facility] Prescription (permanent handicap placard) albuterol (Albuterol (Eqv-ProAir [...] AM EST With: Clint Ortiz DO Where: [facility] Jose C Normal [address] [place] [address]-\.br\ Medications\.br\ What How Much When Why Instructions\.br [...] currently receiving treatment for.\.br\ ADHD\.br\ Anxiety\.br\ Asthma\.br\ Edwall of foot\.br\ Fibromyalgia\.br \ History of migraine\.br\ [...] for choosing us for your care.\.br\ \.br\ [facility] XR Ankle 3+ Views Lefton XR [...] mGy = . DAP = . Normal [facility] Medication Consenton 023 Medication Consent [id number]#1 .00TIFF Normal [facility] Consent for Flu Vaccineon Consent for Flu Vaccine [id number]#1 .00TIFF [facility] Family Medicine Office/Clini c Noteon 04-21-2023 Family [...] 2020 ultrasound recommend periodic ultrasound monitoring at [facility] Follow-up 6 months February 18, 2023-PCP ADHD [...] BID, # 60 tab(s), Refills(s) 5, Pharmacy: [facility]/pharmacy #[id number], 158, cm, 04/21/23 8:07:00 EST, Height/Length Dosing, 86, kg, 04/21/23 8:07:00 EST, Weight Dosing 3. Thyroid nodule (E04.1: Nontoxic single thyroid nodule) Chronic Stable Established with ENT Given the lack of change compared to 2020 US, OK for patient to monitor at [facility] (for her convenience) f/u 6 months with [...] List/Past Medical History Ongoing ADHD Anxiety Asthma Edwall of foot Fibromyalgia History of migraine History of posttraumatic stress disorder (PTSD) Hypokalemia Hypothyroidism Insulin resistance Mild recurrent major depression PCOS (polycystic ovarian syndrome) Smoker Thyroid nodule Historical No qualifying data Procedure/Surgical History Carpal tunnel, delivery only;, Colonoscopy, Dilation and curettage, diagnostic and/or therapeutic (nonobstetrical), Gallbladder operation. Medication (more content not included)... Normal [facility] Comment on above: Result Comment: Elec tronically Signed By: Clint Ortiz DO\Date and Time Signed: 04/21/23 08:42 EST T3 Totalon 04-21-2023 T3 [Mass/Vol] 112 ng/dL Invalid Interpretation Code 71-180 [facility] Comment on above: Result Comment: Perf ormed at: [facility] [address] [id number] PhD Ricchiuti Vincent Performed By: #### 2 021966, [id number], 2825368, 1853741, [id number], [id number] ####[facility] [address] [place] [address] BMPon 04-20-2023 Anion gap [Moles/Vol] 11 mmol/L Normal 6-16 [facility] Comment on above: Performed By: #### 2 172539, [id number], 9834475, 5324454, 45164003, 9774054 ####[facility] [address] [place] [address] Calcium [Mass/Vol] 9.5 mg/dL Normal 8.9-11.1 [facility] Comment on above: Performed By: #### 2 173859, 92122956, 1994503, 0036465, 84057239, 9304991 ####[facility] [address] [place] [address] Chloride [Moles/Vol] 105 mmol/L Normal 101-111 [facility] Comment on above: Performed By: #### 2 063259, 00619206, 8073582, 4225264, 66799605, 0603553 ####[facility] [address] [place] [address] CO2 [Moles/Vol] 26 mmol/L Normal 21-31 [facility] Comment on above: Performed By: #### 2 443654, 54117057, 1764855, 4957626, 50938059, 9774273 ####[facility] [address] [place] [address] Creatinine [Mass/Vol] 0.9 mg/dL Normal 0.5-1.3 [facility] Comment on above: Performed By: #### 2 733656, 34648499, 3816419, 4839516, 65131988, 4776980 ####[facility] [address] [place] [address] Glucose [Mass/Vol] 90 mg/dL Normal 55-199 [facility] Comment on above: Result Comment: If t his glucose result represents a fasting glucose, interpretation should refer to the following reference range: 55-99 mg/dL Performed By: #### 2 984004, 09563659, 7151977, 1960072, 28189122, 6459022 ####[facility] [address] [place] [address] Potassium [Moles/Vol] 4.2 mmol/L Normal 3.5-5.3 [facility] Comment on above: Performed By: #### 2 639707, 69589142, 2500805, 9626042, 64922946, 9586381 ####[facility] [address] [place] [address] Sodium [Moles/Vol] 138 mmol/L Normal 135-145 [facility] Comment on above: Performed By: #### 2 937848, 36869289, 6118151, 6108273, 02013204, 1251268 ####[facility] [address] [place] [address] Urea nitrogen [Mass/Vol] 9 mg/dL Normal 5-21 [facility] Comment on above: Performed By: #### 2 722450, 05229932, 7487939, 0154096, 82560211, 8454022 ####[facility] [address] [place] [address] Urea nitrogen/Creatinine [Mass ratio] 10 No Units Normal 10-20 [facility] Comment on above: Performed By: #### 2 602696, 29715442, 0189303, 3322469, 67390186, 7405548 ####[facility] [address] [place] [address] CHEMISTRYOrdered By: SYSTEM SYSTEM on 04-20-2023 Anion gap [Moles/Vol] 11 mmol/L Normal 6 - 16 mEq/L [facility] Remisol Calcium [Mass/Vol] 9.5 mg/dL Normal 8.9 - 11.1 mg/dL FT Remisol Chloride [Moles/Vol] 105 mmol/L Normal 101 - 111 mmol/L FT Remisol CO2 [Moles/Vol] 26 mmol/L Normal 21 - 31 mmol/L [facility] Remisol Creatinine [Mass/Vol] 0.9 mg/dL Normal 0.5 - 1.3 mg/dL FT Remisol Free T4 [Mass/Vol] 1.27 ng/dL Normal 0.58 - 1. 64 ng/dL [facility] Remisol GFR/1.73 sq M.predicted among non-blacks MDRD (S/P/Bld) [Vol rate/Area] 84 mL/min/1.73 m2 Normal >=59mL/min/1.73 m2 [facility] Chem S Comment on above: Interpretive Data: [...] 9 mg/dL Normal 5 - 21 mg/dL [facility] Remisol Urea nitrogen/Creatinine [Mass ratio] 10 mg/mg Normal 10 - 20 FT Remisol Consent for Treatmenton Consent for Treatment [id number]#1 .00TIFF Normal [facility] Free T4on 04-20-2023 Free T4 [Mass/Vol] 1.27 ng/dL Normal 0.58-1.64 [facility] Comment on above: Performed By: #### 2 774066, 09500630, 5767591, 0766582, 84198988, 4008102 ####[facility] [address] [place] [address] Magnesiumon 04-20-2023 Magnesium [Mass/Vol] 1.8 mg/dL Normal 1.3-2.4 [facility] Comment on above: Performed By: #### 2 257074, 39662232, 4473911, 3770496, 76939922, 8781348 ####[facility] [address] [place] [address] TSHon 04-20-2023 TSH Qn 0.02 m[IU]/L Low 0.34-5.60 [facility] Comment on above: Performed By: #### 2 506248, 56669372, 4794075, 5772710, 47967021, 6423419 ####[facility] [address] [place] [address] eGFRon 04-20-2023 GFR/1.73 sq M.predicted among non-blacks MDRD (S/P/Bld) [Vol rate/Area] 84 mL/min/1.73 m2 Normal >=59 [facility] Comment on above: Order Comment: Order added by Discern Expert. Result Comment: Mail Censor erica kidney disease could be indicated at eGFR's of less than 60 mL/min/1.73m2. Kidney failure is indicated at less than 15 mL/min/1.73m2. Performed By: #### 2 161504, 66154485, 5024443, 9147807, 34013803, 7606088 ####[facility] [address] [place] [address] Interdisciplinary Note - Soc ial Workeron 02-25-2023 Interdisciplinary Note - Therapeutic Case Manager This SW made tc to patient [...] her fridge. SW will remain available. Normal [facility] Consultation Noteon 02-21-20 Consultation Note [id number] .00CD:127 Normal [facility] Family Medicine Office/Clini c Noteon 02-19-2023 [...] BID, # 60 tab(s), Refills(s) 5, Pharmacy: [facility]/pharmacy #6173, 158, cm, 02/18/23 10:07:00 EDT, Height/Length [...] reactive airway disease f/u 1 month 5. Edwall of foot (L84: Corns and callosities) new to me discussed rationale for self-care vs podiatry referral deferred f/u PRN Adult BMI 34.0-34.9 kg/sq m (Z68.34: Body mass index [BMI] 34.0-34.9, adult) Ordered: Medicare Annual Visit G0438 Orders: methylphenidate, 20 mg = 1 tab(s), Oral, Daily, # 30 tab(s), Refills(s) 0, Pharmacy: [facility]/pharmacy #6173, 158, cm, 02/18/23 10:07:00 EDT, Height/Length [...] 4004F Tobacco Use Cessation Intermediate 3-10 Minutes 67046 Total time spent TODAY preparing the chart, face to face with the patient and family and time spent documenting, reviewing, and ordering tests was 30 mins. Follow-up No qualifying data available Problem List/Past Medical History Ongoing ADHD Anxiety Asthma Edwall of foot Fibromyalgia History of migraine History of posttraumatic stress disorder (PTSD) Hypokalemia Hypothyroidism (more content not included)... Normal [facility] Comment on above: Result Comment: Elec [...] of clutter to prevent tripping and/or falling. [place] Advance Directives reviewed, declines additional info. Patient [...] patient, fa (more content not included)... Normal [facility] Comment on above: Result Comment: Elec [...] Ortiz DO This Is Your Medications List [facility] Prescription (permanent handicap placard) albuterol (Albuterol (Eqv-ProAir [...] Follow-Up Appointments Thursday 11:00 AM EDT Where: [facility] Ambulatory Visit Summary FARHAD, DOMINIQUE Dunbar :1985 [...] Ortiz DO This Is Your Medications List [facility] Prescription (permanent handicap placard) albuterol (Albuterol (Eqv-ProAir [...] Follow-Up Appointments Thursday 11:00 AM EDT Where: [facility] Jose C Normal [facility] Patient Educationon 02-19-20 23 Patient Education Mental and Behaviora [facility] Major Depressive Disorder, Adult Major depressive [...] may include: ? Your personality traits. ? Patrick or conditioned behaviors or thoughts or feelings [...] In the (more content not included)... Normal [facility] Screenson 02-18-2023 Screens [id number]. 00CD:127 Normal [facility] Family Medicine Office/Clini c Noteon 01-08-2023 [...] moving ever since youngest went back to [place] - he's turning 16 soon TSH suppressed/ [...] Daily, # 30 tab(s), Refills(s) 5, Pharmacy: [facility]/pharmacy #[id number], 158, cm, 01/07/23 10:49:00 EDT, [...] for this handicap placard provided today Ordered: [facility] Prescription, permanent handicap placard, See Instructions, 1 EA, 11, for chronic medical condition, Supply, 158, cm, 01/07/23 10:49:00 EDT, Height/Length Dosing, 86.3, kg, 01/07/23 10:49:00 EDT, Weight Dosing Multinodular thyroid (E04.2: Nontoxic multinodular goiter) see #2 Ordered: levothyroxine, 88 mcg = 1 tab(s), Oral, Daily, # 30 tab(s), Refills(s) 5, Pharmacy: [facility]/pharmacy #6173, 158, cm, 01/07/23 10:49:00 EDT, Height/Length Dosing, 86.3, kg, 01/07/23 10:49:00 EDT, Weight Dosing Free T4 T3 Total Thyroid Stimulating Hormone Orders: methylphenidate, 20 mg = 1 tab(s), Oral, Daily, # 30 tab(s), Refills(s) 0, Pharmacy: [facility]/pharmacy #6173, 158, cm, 01/07/23 10:49:00 EDT, Height/Length Dosing, 8 (more content not included)... Normal [facility] Comment on above: Result Comment: Elec [...] lb BMI: 34.84 Constitutional: Vital signs reviewed; Dominiuqe is well nourished, no acute distress Lungs: [...] Daily, # 30 tab(s), Refills(s) 0, Pharmacy: [facility]/pharmacy #[id number], 158.3, cm, 12/03/22 11:34:00 EDT, [...] skin: Grandpar (more content not included)... Normal [facility] Comment on above: Result Comment: Elec tronically Signed By: Clint Ortiz DO\.br\Date and Time Signed: 12/04/22 12:53 EDT Advance Beneficiary Notifica tionson 12-03-2022 Advance Beneficiary Notifications [id number]# 1.00CD:127 Normal [facility] Ambulatory Visit Summaryon 0 12-03-2022 Ambulatory [...] By Mouth Every day ADHD Pickup at [facility]/pharmacy #3471 Unchanged albuterol (Albuterol (Eqv-ProAir HFA) [...] physician if questions or concerns Pharmacy Information [facility]/pharmacy #[id number]: [address], [place] [phone] What How Much When Why Comments Stop [...] (polycystic ovarian syndrome) Smoker Thyroid nodule Normal [facility] CHEMISTRYOrdered By: SYSTEM SYSTEM on 12-03-2022 [...] 12-03-2022 Albumin [Mass/Vol] 4.4 g/dL Normal 3.3-5.0 [facility] Comment on above: Performed By: #### 2 470603, 9025450, 75582072, 8680998, 94461504 ####[facility] [address] [place] [address] Albumin/Globulin (S) [Mass conc ratio] 1.5 Normal 1.1-2.2 [facility] Comment on above: Performed By: #### 2 983705, 9371778, 21181844, 1427921, 31105078 ####[facility] [address] [place] [address] ALP [Catalytic activity/Vol] 48 Int._Unit/L Normal 21-98 [facility] Comment on above: Performed By: #### 2 691856, 8991471, 33872861, 7621525, 60472398 ####[facility] [address] [place] [address] ALT No additional P-5'-P [Catalytic activity/Vol] 28 Int._Unit/L Normal 6-46 [facility] Comment on above: Performed By: #### 2 473314, 5652536, 15221345, 5732575, 13985028 ####[facility] [address] [place] [address] Anion gap [Moles/Vol] 9 mmol/L Normal 6-16 [facility] Comment on above: Performed By: #### 2 537586, 8120235, 09225432, 8767084, 37934520 ####[facility] [address] [place] [address] AST [Catalytic activity/Vol] 20 Int._Unit/L Normal 5-43 [facility] Comment on above: Performed By: #### 2 921569, 3166561, 22952512, 8690713, 28983440 ####[facility] [address] [place] [address] Bilirubin [Mass/Vol] 0.8 mg/dL Normal 0.0-1.1 [facility] Comment on above: Performed By: #### 2 238680, 2119703, 71834575, 9232191, 11413045 ####[facility] [address] [place] [address] Calcium [Mass/Vol] 9.1 mg/dL Normal 8.9-11.1 [facility] Comment on above: Performed By: #### 2 454862, 8655767, 83149457, 8252540, 51963267 ####[facility] [address] [place] [address] Chloride [Moles/Vol] 108 mmol/L Normal 101-111 [facility] Comment on above: Performed By: #### 2 768342, 8481337, 00410858, 9161423, 87864738 ####[facility] [address] [place] [address] CO2 [Moles/Vol] 24 mmol/L Normal 21-31 [facility] Comment on above: Performed By: #### 2 555335, 8566214, 30322012, 9683603, 36257690 ####[facility] [address] [place] [address] Creatinine [Mass/Vol] 0.8 mg/dL Normal 0.5-1.3 [facility] Comment on above: Performed By: #### 2 044606, 8385952, 06099283, 1059457, 96724448 ####[facility] [address] [place] [address] Globulin (S) [Mass/Vol] 2.9 g/dL Normal 1.4-4.0 [facility] Comment on above: Performed By: #### 2 510490, 3955032, 54009400, 4780334, 74263360 ####[facility] [address] [place] [address] Glucose [Mass/Vol] 91 mg/dL Normal 55-199 [facility] Comment on above: Result Comment: If t his glucose result represents a fasting glucose, interpretation should refer to the following reference range: 55-99 mg/dL Performed By: #### 2 292162, 9993750, 93024962, 6056236, 60070562 ####[facility] [address] [place] [address] Potassium [Moles/Vol] 3.4 mmol/L Low 3.5-5.3 [facility] Comment on above: Performed By: #### 2 902797, 3710842, 02657758, 4451908, 72331566 ####[facility] [address] [place] [address] Protein [Mass/Vol] 7.3 g/dL Normal 6.0-7.8 [facility] Comment on above: Performed By: #### 2 488836, 1945727, 32835177, 9101627, 95361685 ####[facility] [address] [place] [address] Sodium [Moles/Vol] 138 mmol/L Normal 135-145 [facility] Comment on above: Performed By: #### 2 217273, 1684651, 01447471, 2239326, 89525042 ####[facility] [address] [place] [address] Urea nitrogen [Mass/Vol] 7 mg/dL Normal 5-21 [facility] Comment on above: Performed By: #### 2 422459, 4725367, 35692052, 6167441, 66624902 ####[facility] [address] [place] [address] Urea nitrogen/Creatinine [Mass ratio] 9 No Units Low 10-20 [facility] Comment on above: Performed By: #### 2 262253, 0018992, 06294552, 3452785, 64184390 ####[facility] [address] [place] [address] Consent for Treatmenton 11-14 Consent for Treatment [id number]#1 .00CD:127 Normal [facility] Free T4on 12-03-2022 Free T4 [Mass/Vol] 1.43 ng/dL Normal 0.58-1.64 [facility] Comment on above: Order Comment: Free T4 added by Discern Rule due to a TSH result of <0.34 or >5.60. Performed By: #### 2 995954, 7160423, 44463907, 2091783, 25267742 ####[facility] [address] [place] [address] Lipid Panelon 12-03-2022 Cholesterol [Mass/Vol] 170 mg/dL Normal 120-200 [facility] Comment on above: Performed By: #### 2 886215, 2427182, 28325850, 9647188, 35809212 ####[facility] [address] [place] [address] Cholesterol in HDL [Mass/Vol] 44 mg/dL Invalid Interpretation Code [facility] Comment on above: Result Comment: HDL > or equal to 60 mg/dL: Low cardiovascular risk HDL < 40 mg/dL : High cardiovascular risk Performed By: #### 2 348943, 8269326, 83629419, 4370546, 96433944 ####[facility] [address] [place] [address] Cholesterol in LDL [Mass/Vol] 108 mg/dL Normal <=129 [facility] Comment on above: Performed By: #### 2 683785, 1106682, 90839980, 9208739, 09406426 ####[facility] [address] [place] [address] Cholesterol in VLDL [Mass/Vol] 25 mg/dL Normal 7-40 [facility] Comment on above: Performed By: #### 2 662841, 5854814, 82181652, 5289713, 42159668 ####[facility] [address] [place] [address] Triglyceride [Mass/Vol] 127 mg/dL Normal <=149 [facility] Comment on above: Performed By: #### 2 698390, 2359103, 11774090, 1014807, 64248901 ####[facility] [address] [place] [address] TSH With T4fr Reflexon 12-03 TSH Qn 0.03 m[IU]/L Low 0.34-5.60 [facility] Comment on above: Performed By: #### 2 002535, 3873693, 46143796, 1272832, 32244677 ####[facility] [address] [place] [address] eGFRon 12-03-2022 GFR/1.73 sq M.predicted among non-blacks MDRD (S/P/Bld) [Vol rate/Area] 97 mL/min/1.73 m2 Normal >=59 [facility] Comment on above: Order Comment: Order added by Discern Expert. Result Comment: Mail Censor erica kidney disease could be indicated at eGFR's of less than 60 mL/min/1.73m2. Kidney failure is indicated at less than 15 mL/min/1.73m2. Performed By: #### 2 405814, 5916932, 72985880, 9674631, 74026848 ####[facility] [address] [place] [address] Consultation Noteon 11-22-19 Consultation Note [id number]#1 .00CD:127 Normal [facility] Pulmonary Function Studieson 10-29-2022 Pulmonary Function [...] READ BY: Meliza Vogel M.D. Dictated: 10/28/2022 [id number] Transcribed: 10/28/2022 cc:Clint Ortiz D.O. Normal [facility] Comment on above: Result Comment: Elec tronically Signed By: Jaspreet JOSEPH, Meliza Neal\.br\Date and Time Signed: 10/29/22 09:32 EDT Consent for Treatmenton 10-13 Consent for Treatment [id number] .00CD:127 Normal [facility] Methacholine Challenge Testo n 10-27-2022 Methacholine Challenge Test [id number]#1 .00CD:127 Normal [facility] PROGESTERONEon 10-17-2022 Progesterone 30.4 ng/mL Normal [facility] Comment on above: Result Comment: Foll icular phase 0.1 - 0.9 Luteal phase 1.8 - 23.9 Ovulation phase 0.1 - 12.0 First trimester 11.0 - 44.3 Second trimester 25.4 - 83.3 Third trimester 58.7 - 214.0 Postmenopausal 0.0 - 0.1 Performed By: #### P DAWNA #### [facility] [address] [place] [address] Dr. Cecy Hernandez Pulmonary Function Studieson 10-11-2022 [...] BY: Felipe Johnson M.D. lr Dictated: 10/08/2022 [id number] Transcribed: 10/08/2022 cc:Clint Ortiz D.O. [facility] Comment on above: Result Comment: Elec tronically Signed By: Alex JOSEPH, Felipe X\.br\Date and Time Signed: 10/11/22 12:51 EDT Coding Summary.on 10-09-2022 Coding Summary. CD:[id number] W w+PGhlYWQ+ME8XWUSxM06 nyPTnvQ8vE0ZEYVuJGung KQAEQHjEAaYmtmYmWQ3dn XNjZXJu IC8+EV4mZASoTetgqIAwe 8C1lBS5R40tfa7aUBkdmR W4BZKcHzDnhieqj9rixZi 6IDcuNmluOyBt MZAjvG48TUU9kK04Hf38p XIjqGEco6mcySc5MaZaWA YmTBB8wAufXElhw0TtMZT yU12dbIPgo9L6 BDYhpPauhSMfFvVmoVX6u R9sZWujhcgtu1gijvlsOe e8jp65uCBvm3J5yCD5D7I kyqU5FIPluCOc IclxtCWViF1pjxcmq5nvl mytTiWuTFAgDEg4YQq0MA PewMfpCyXyLR60WQP8ZES fvaRuL1EbHVRj qUqeUoY7x3A8Na3FO0LBT wejE4VJRKKGQNfgmHN+PC 70lm97W6RjRssdKsf9DXN jLCF5vHC5sY4w UQCeSEsxd4S2pPJ5B5Jbd tQnya5aa1pwLTBaEJiiN0 6ihRMwg1P9NRAkkRJ7LNG caMsvYgAueQ63 Oyc+VQZruSoic2TiTwfan 8mwq3qnrHu2YzbjIXIzss IpzYzyXFM0q0MzYp6zAUU lwNQ4iPE3eK1z FoDiRiH2XLfyI113NuWbq MIxOyitD59xJ1DjwWP+PH QpQei7MXEakCwjNO1lL8U hZGRpbmctbGVm jHezVK2qNXUwqnqnBIAam V1lYTClX3z6JoEuWxE6NP smF6MmQLHpaoftGp05zX6 kJxMgZsU8VBfl X6SqkqW7FJMhuDBeBFjlG LC4T73uj4C4PAHoPSAfNM Z2tWC7eQ7ubKumgksukXD mdDsgdmVydGlj JRqmLSbbS532YXIboUkmX kNvZGluZyBEYXRlOiAgMD QvMjcvMjAyMzwvdGQ+PHR gYJB5oCtpOVSi pKUgDJknMw7hoUzrtHzzK C0yXMNsmwofAIMfdD2fKG MnzAIwoBfeEQ5xNEGdyil um626PaVrUDZ4 ZBKcfPNpM3SgrE0jZlLzA RCdBXWrI2DklXJqTSfuL2 55DJswPfE9WGFabzRkH0A sLWFsaWduOiB0 w1I5Aw7Rq9KqofosL6Rqa UNjLyWxOoxzLLq8Q8IjJg wvdHI+BU87MHPuVV85PVs 5VSZ4bOzjSOka ELBnC6CclN8mLmEqUJNrS GRkOyc+PHRhYmxlIHdpZH RoPScxMDAlJyBzdHlsZT0 iZm0bLYWyCVMf zVygwNJbFlUyt0niRJFaG LncED8fyWqdR7VaeTV8FL Mik0r4Mn87N14mJ7UagVR +WLIlkOS8yRZ7 uZ9jUfGfFeB9NWqsU477Q pInoUAlAnykc7rsy6cjqQ m0QgG2OOWcluUzuPhyGWG 6h9YxOp76V10h IHdpZHRoPSIxNSUiIHZhb Lpbro0ntM9yYh5+PGNvbC E5sDC6gZ6vKvWlKmB2EMe pQ089GjVjbMFu Ajfqn7pdb3ailVm7ChRiP SEnnaZqgDmtMSX2o0ZiOq 47I8SjdUjoc9EwYoc6qx9 8oYNjz0W1nGJ4 Q6WkGDWefpiueIIdrTrnT P6hAXRerupuYYDcgP2nJB ZhT6i0SnYnVpQ6SGnlO4O tlnD8XSMumXBv UIYfkYGVtH8wmqgol5vtx xgfIhZjHBGjQPl7MWs1RP GvzVyoOzLnZPR6XfL9NRI 3kCDxpC0eiNwi bvlkbJ5gUxt+AID4rLAff SVPIE2uKugnhHA+PHRkIH X1sKvpWZupJMKsnU9qEPT pY3h5TtLcEtS2 AAmqC7BtloG5VSGsnUUlP ASreZPAvV0csliyq8oumz ftPeJqUNXqVFg6ZKz7ZFQ saWduOiBsZWZ0 ChM8ARD1fDIdoU9zcYzll gbltV8wKez+QmlydGggRG S0ESy7P0JgOoj1PCAaoTr eFG1duZSgTQxp Bc8ttLbmcKqbQS2tTKOsh tqjc838AvMzy9gsYBHlvQ QbLBoeXXU8Q13lv3E8DEF xVHBgYGG2oRY9 sV4ihBkurwiskHLlbBira cKhaGhkXWexCFvyH352MN DeyLycMwMlMAr4U9YlMcf 3BQFqxRmvQO4l xSAgOOudUg3icRcrqLagS X2pTUDpsiigv219AfBxo5 xpMEHsmGYqJXtdJEP9U88 jz6Z6KLTiRHGc GPQ9tSN9hW4jeLluizuks GVmdDsgdmVydGljYWwtYW qhH138MHFrvDdqZvKieAn 2R4LnFwn3DPOo eGwqKA5jjFLcGWwgKl6yo PovaArbHP9dLQByvfjrx4 47EuQlg2iaMYLceRZiMEh uMCM6W78cc1L0 UMWlDYOlXPI5aZY0eM0us GlnbjogbGVmdDsgdmVydG euMBchUMmyD173GLSjgCd nPlBhdGllbnQg CYfeAAi2L2TuSwdwkRZ+P R74MSDyEC46nWJtcGNsa2 mscNc0WaSwPAYjUBQ2nAt yLNgoo5RiBYCg X86weQKuo4G7YAHbaAmnm UBgIzVrkOU6iY6gLUiysx nmr9hrrpppCplvz2xkfc9 3yG67D04gUVwx ZHRoPSIzMCUiIHZhbGlnb n0rfB0aVh5+MQJgmDK6eA Y1xT3kFXRsDfS9TCqxV10 9InRvcCIvPjxj j2dfi9pjwZi9PrR6TMDvq xAvlMhyDKU6q3TkAg63E3 9sIHdpZHRoPSIyMCUiIHZ kvPqrut0qhV2z Ii8+HLGhjNN7zGD9zN4wI nHoPjC4GFklW255NxGwnO DxYqysM47oC3TpaSA+PHR kAie4TOTbbHjn NK2dxHKpILadAy6qIPA1W jJpVcFpPPiyP3CdXZWjzj czmdmxxIE7QSJjSDHbpI7 4Ah9ebOikQDMn yANVuW6ncrpbe4egrzrpJ mPwMZAhJBp7JNo7IEWsuP aiShKpVWW6IgK5QKZ4zLE kgV3ozTgqduzb hP7xU5AyPZAqmgfnTw12f E6fCnAbDdQ6WZjdNfu+UE OQTe0XXKwhG5uBG69BTF0 0T3XcLhu6PCLr jYsrGT4tkGHqORhmPm7dt TggfBckIX5lTARebkudKQ IwzW9hZHZsjOCacDthTZ8 iLAYkvxihh071 MgAlHIX5EUDamUIbM8Vyi C0gVzTaMAThMAItJ8NghM QiXDbfF431KFxrRkN1RRL inrEnY5KzEZHs bLheDpB0h1R8Pk0uSU3qL l5aCIb1NN16ZR80eJLfb8 A5eLR5B5QmUDIahjtpjev joFH5VYCbSNSa mX45zQZuEKjbSo6ye1C8e 302FICoIGMsgU39Lj4zlO jdWSBtyRGOvJ7spuyuc1g vcjogIzAwMDAw XHz6KKe3JMEuzBhiSbVpY AQ9DbO9WEG2qKJtoT0srB ufkszgfR4eFbv+MzcgWWV uhgS4E8XxFuu5 ITQztPceZS6opXOiANtfS c1seBabmDbtUE7rOKZtgx vmKLDzxJ4kEBTfgPLuqNy kWD9uRMKqrlxn f116KgMuSQK2SDCoeNYqH 0OufE1fVzYgAUNuMYMcN4 EbwYEvKRwlT269KAkdSiW 3WGTgncUrW0Vz IHVvlDgtYmR8k1W0Rv9KP H6edYK1Y4BdAia0LSAotG dnJM6miWNfQIkdMe3vdRs dzTqdEQ0lMINp nbvfXBPiiG4wIDVmpGMyb FdqBH4aKSSphmobk775Ju ZnWZE9VHBtrTFxO7TqfL8 yOiAjMDAwMDAw G9BgmYAoYFhaK669CDapC zT6YZZkblZqM2RmORLbkK zhZnC9r6H9Jp1YrULiCVZ bJL27DQ49UK05 P1AwPapwzZRfmSF+PHRhY mxlIHdpZHRoPScxMDAlJy MhvOitVV1gBn2dBJQrFHF vbGxhcHNlOiBj c9lsPWImPVnuOF0eyDxbT 9XhjRB3QOHqx5x9Zy99I5 0jJ2GrgMB+RTVimDE9aXH 2uH2dBbVgXaI0 OMlwF249PjBvnAZnQwdux 4jnc3xrvKo8NlPdMNBupj EpkDqmYPH5a3JsMh05Z08 sIHdpZHRoPSIy DRNxNACzwCzfyp6ujE4cL i8+EWLwbLM0vBI4nA1qQc OgRnJ2GJotU136FqSefXC eCdaoX46pE3Di dXA+BHVnBvj1QYOioSdfF F7jxKZoORbaCg6zEBU7Nl YuYkNlBPikY3PqQSJbppu ywanmvQY8TBJw WAKorS09Pm8zgGazMm9aC PDaOXK6GASjdXXaS7IfyB 3wRbJzRZTlSYJhH8RarJX rWKmbY009VVds XtS2QDObskClS9OwZXMiy AfgMtN9x6Z0Td9SvXbntN CnAS7uTcPgKBa5Z4IyWwa 3LJWvtXooXJ7f wKGpZRhjSf7yoRvnkAdnK I1iHOIgcnjkq482StOcv2 xnDEMvdGVlBCapPCC2Z15 sn4P7ZYMqSWBz YXR7lZF4eL5udSvbmfqns GVmdDsgdmVydGljYWwtYW ymN054VAUyiTpfEyTUBoa 3Q2VjAfu9JLFx cWkfNC9qrCGnMNgzEz9tn MhaoXugTF5tLAQwfnjfv2 61JuRfr9wpMBHnrECdTFk zFSB3A17ln1E9 NXTqSLAcAJS7rCV8cD1zw GlnbjogbGVmdDsgdmVydG xoJGgfJNvcY998MSEdtAs kIm5ADyj3N6Ha Ewf5YZAwfHvgHL8etAWnK CqvOs4oiXtnnTjyXT5dLT Lcdjmje153AeXri3rrADQ wcHQgVGltZXM7 C46km1I7UTDvHXVpTTR9q MF8qB6yyZtidafjaJRvhJ bxbwHdjWwaGAhiZUpmM10 6IHRvcDsnPlBh eWVyOjwvdGQ+RY16fv11A 0HcZtvgSrr4UFNoNKR9yE S6aC2pKUSuMXcmj1Z2lGT 1V0TupkBkin1y n2rpSUFq (more content not included)... Normal [facility] US Thyroidon 10-07-2022 US Thyroid Exam [...] MD Transcribed by: JOVANNY Technologist: DUSTIN Normal [facility] Consent for Treatmenton 09-14 Consent for Treatment [id number]#1 .00CD:127 Normal [facility] Pulmonary Function Testson 0 10-06-2022 Pulmonary Function Tests [id number]#1 .00CD:127 Normal [facility] Interdisciplinary Note - Res piratoryon 10-03-2022 [...] through the Emergency Room entrance: _ Normal [facility] Physician Referralon 023 Physician Referral [id number] #1.00CD:127 Normal [facility] Ambulatory Visit Summaryon 0 09-29-2022 Ambulatory [...] Will Contact You Regarding These Appointments\.br \ [facility] External Ambulatory Referral, ENT, previous testing performed at [facility], 09/29/22 9:46:00 EDT, Thyroid nodule\.br\ Medications\.br\ [...] (polycystic ovarian syndrome)\.br\ Smoker\.br\ Thyroid nodule\.br\ \.br\ [facility] Family Medicine Office/Clini c Noteon 09-29-2022 Family Medicine Office/Clinic Note Chief Complaint EST. CARE,also question on ADHD History of Present Illness Dominique is a 37-year-old female that presents today to [facility]. Previous PCP was Dr. Dye. ANXIETY She [...] borderline personality disorder by a psychiatrist in [place] when she was 17-year-old. Was also previously [...] did the ultrasound and he was in [place]. States she has only seen the doctor [...] This was diagnosed by Dr. Jules in [place] 5 to 6 years ago. She had a glucose tolerance test 3 years ago and failed. She went 2 weeks without her metformin. FIBROMYALGIA She is not currently taking anything for it. It was diagnosed by a breaker up machine operator in [place]. She only sees him once a year. [...] directly? ( (more content not included)... Normal [facility] Comment on above: Result Comment: Elec troericaally Signed By: Cromley DO, Clint J\.br\Date and Time Signed: 09/29/22 20:56 EDT\.br\Electronically Co-Signed By: Rahel Carreno\.br\Date and Time Co-Signed: 09/29/22 13:57 EDT Formson 09-29-2022 Forms [id number]#1 .00CD:127 Normal [facility] PROGESTERONEon 09-16-2022 Progesterone 24.8 ng/mL Normal [facility] Comment on above: Result Comment: Foll icular phase 0.1 - 0.9 Luteal phase 1.8 - 23.9 Ovulation phase 0.1 - 12.0 First trimester 11.0 - 44.3 Second trimester 25.4 - 83.3 Third trimester 58.7 - 214.0 Postmenopausal 0.0 - 0.1 Performed By: #### P ROGES #### [facility] [address] [address] [address] Cecy Hernandez PAP ACOG PANEL 2: 30 to 65on 09-03-2022 . . Normal [facility] Comment on above: Result Comment: Perf ormed at: WB Performed By: #### P ROGES #### [facility] [address] [address] [address] Cecy Hernandez Age Gdln ACOG Testing 30-65 [facility] Comment on above: Performed By: #### P ROGES #### [facility] [address] [address] [address] Cecy Hernandez DIAGNOSIS: Comment Normal [facility] Comment on above: Result Comment: NEGA TIVE FOR INTRAEPITHELIAL LESION OR MALIGNANCY. Performed at: WB Performed By: #### P ROGES #### [facility] [address] [address] [address] Cecy Hernandez HPV Aptima Negative Normal Negative [facility] Comment on above: Result Comment: This nucleic acid amplification test detects fourteen high-risk HPV types (16,18,31,33,35,39,45,51,52,56,58,59,66,68) without differentiation. Performed at: =G Performed By: #### P ROGES #### [facility] [address] [address] [address] Cecy Hernandez HPV Genotype Reflex Comment Normal [facility] Comment on above: Result Comment: Crit ezio not met, HPV Genotype not performed. Performed at: WB Performed By: #### P ROGES #### [facility] [address] [address] [address] Cecy Hernandez Methodology: Comment Normal [facility] Comment on above: Result Comment: This liquid based ThinPrep(R) pap test was screened with the use of an image guided system. Performed at: WB Performed By: #### P ROGES #### [facility] [address] [address] [address] Cecy Hernandez Note: Comment Normal [facility] Comment on above: Result Comment: The Pap smear is a screening test designed to aid in the detection of premalignant and malignant conditions of the uterine cervix. It is not a diagnostic procedure and should not be used as the sole means of detecting cervical cancer. Both false-positive and false-negative reports do occur. . Performed at: WB Performed By: #### P ROGES #### [facility] [address] [address] [address] Cecy Hernandez Performed by: Comment Normal [facility] Comment on above: Result Comment: Ludivina Maldonado, Grounds And Nursery Specialist Performed at: WB Performed By: #### P ROGRYLEY #### [facility] [address] [place] [address] Dr. Cecy Hernandez Specimen adequacy: Comment Normal [facility] Comment on above: Result Comment: Sati sfactory for evaluation. Endocervical and/or squamous metaplastic cells (endocervical component) are present. Areas of partially obscuring blood are present. Performed at: WB Performed By: #### P ROGES #### [facility] [address] [address] [address] Cecy Hernandez PROGESTERONEon 07-16-2022 Progesterone 15.0 ng/mL [facility] Comment on above: Result Comment: Foll icular phase 0.1 - 0.9 Luteal phase 1.8 - 23.9 Ovulation phase 0.1 - 12.0 First trimester 11.0 - 44.3 Second trimester 25.4 - 83.3 Third trimester 58.7 - 214.0 Postmenopausal 0.0 - 0.1 Performed By: #### P DAWNA #### [facility] [address] [place] [address] Dr. Cecy Hernandez CBC AUTO DIFFon 06-27-2022 BASO # 0.0 103/ul Normal 0.0-0.1 [facility] Comment on above: Performed By: #### P DAWNA #### [facility] [address] [place] [address] Dr. Cecy Hernandez Basophils/100 WBC (Bld) 0.5 % Normal 0.2-2.0 [facility] Comment on above: Performed By: #### P DAWNA #### [facility] [address] [place] [address] Dr. Cecy Hernandez EO # 0.3 103/ul Normal 0.0-0.7 [facility] Comment on above: Performed By: #### P DAWNA #### [facility] [address] [place] [address] Dr. Cecy Hernandez Eosinophils/100 WBC (Bld) 3.2 % Normal 0.9-7.0 [facility] Comment on above: Performed By: #### P DAWNA #### [facility] [address] [place] [address] Dr. Cecy Hernandez Erythrocyte distribution width (RBC) [Ratio] 12.4 % Normal 11.0-15.0 [facility] Comment on above: Performed By: #### P DAWNA #### [facility] [address] [place] [address] Dr. Cecy Hernanedz Hematocrit (Bld) [Volume fraction] 40.9 % Normal 36.0-48.0 [facility] Comment on above: Performed By: #### P DAWNA #### [facility] [address] [place] [address] Dr. Cecy Hernandez Hemoglobin (Bld) [Mass/Vol] 14.1 g/dL Normal 12.0-16.0 [facility] Comment on above: Performed By: #### P DAWNA #### [facility] [address] [address] [address] Cecy Hernandez IG # 0.03 10e3/ul Normal 0.00-0.03 [facility] Comment on above: Performed By: #### P DAWNA #### [facility] [address] [address] [address] Cecy Hernandez IG % 0.3 % Normal 0.0-0.5 [facility] Comment on above: Performed By: #### P DAWNA #### [facility] [address] [address] [address] Cecy Hernandez LYMPH # 3.6 103/ul Normal 1.2-3.8 [facility] Comment on above: Performed By: #### P DAWNA #### [facility] [address] [place] [address] Dr. Cecy Hernandez Lymphocytes/100 WBC (Bld) 41.4 % Normal 20.5-60.0 [facility] Comment on above: Performed By: #### P DAWNA #### [facility] [address] [place] [address] Dr. Cecy Hernandez MANUAL DIFF REQ NO Normal [facility] Comment on above: Performed By: #### P DAWNA #### [facility] [address] [place] [address] Dr. Cecy Hernandez MCH (RBC) [Entitic mass] 29.0 pg Normal 26.7-34.0 [facility] Comment on above: Performed By: #### P DAWNA #### [facility] [address] [place] [address] Dr. Cecy Hernandez MCHC (RBC) [Mass/Vol] 34.5 g/dL Normal 29.9-35.2 [facility] Comment on above: Performed By: #### P DAWNA #### [facility] [address] [place] [address] Dr. Cecy Hernandez MCV (RBC) [Entitic vol] 84.2 fL Normal 81.0-99.0 [facility] Comment on above: Performed By: #### P DAWNA #### [facility] [address] [address] [address] Cecy Hernandez MONO # 0.5 103/ul Normal 0.3-0.8 [facility] Comment on above: Performed By: #### P DAWNA #### [facility] [address] [place] [address] Dr. Cecy Hernandez Monocytes/100 WBC (Bld) 5.9 % Normal 1.7-12.0 [facility] Comment on above: Performed By: #### P DAWNA #### [facility] [address] [place] [address] Dr. Cecy Hernandez NEUT # 4.2 103/ul Normal 1.4-6.5 [facility] Comment on above: Performed By: #### P DAWNA #### [facility] [address] [place] [address] Dr. Cecy Hernandez Neutrophils/100 WBC (Bld) 48.7 % Normal 43.0-75.0 [facility] Comment on above: Performed By: #### P DAWNA #### [facility] [address] [place] [address] Dr. Cecy Hernandez Platelet mean volume (Bld) [Entitic vol] 10.0 fL Normal 9.5-13.5 [facility] Comment on above: Performed By: #### P DAWNA #### [facility] [address] [place] [address] Dr. Cecy Hernandez PLT 283 103/ul Normal 150-450 [facility] Comment on above: Performed By: #### P DAWNA #### [facility] [address] [place] [address] Dr. Cecy Hernandez RBC 4.86 106/ul Normal 4.20-5.40 [facility] Comment on above: Performed By: #### P DAWNA #### [facility] [address] [place] [address] Dr. Cecy Hernandez WBC 8.6 103/ul Normal 4.0-11.0 [facility] Comment on above: Performed By: #### P DAWNA #### [facility] [facility] [address] [place] [address] Dr. Cecy Hernandez ER URINE PROFILEon 3 Bilirubin Ql (U) Negative Normal NEGATIVE [facility] Comment on above: Performed By: #### P ROGES #### [facility] [address] [place] [address] Dr. Cecy Hernandez Clarity (U) CLEAR Normal CLEAR [facility] Comment on above: Performed By: #### P ROGES #### [facility] [address] [place] [address] Dr. Cecy Hernandez Color (U) LT. YELLOW Normal YELLOW [facility] Comment on above: Performed By: #### P ROGES #### [facility] [address] [place] [address] Dr. Cecy VARGHESE A micrscopic examination will be performed if indicated. Normal [facility] Comment on above: Performed By: #### P ROGES #### [facility] [address] [place] [address] Dr. Cecy Hernandez Glucose Ql (U) Negative Normal NEGATIVE [facility] Comment on above: Performed By: #### P ROGES #### [facility] [address] [place] [address] Dr. Cecy Hernandez Hemoglobin Ql (U) TRACE-INTACT Abnormal NEGATIVE [facility] Comment on above: Performed By: #### P ROGES #### [facility] [address] [place] [address] Dr. Cecy Hernandez Ketones Ql (U) Negative Normal NEGATIVE [facility] Comment on above: Performed By: #### P ROGES #### [facility] [address] [place] [address] Dr. Cecy Hernandez LEUKOCYTES Negative Normal NEGATIVE [facility] Comment on above: Performed By: #### P ROGES #### [facility] [address] [place] [address] Dr. Cecy Hernandez Nitrite Ql (U) Negative Normal NEGATIVE [facility] Comment on above: Performed By: #### P ROGES #### [facility] [address] [place] [address] Dr. Cecy Hernandez pH (U) 7.0 [pH] Normal 5-9 [facility] Comment on above: Performed By: #### P ROGES #### [facility] [address] [address] [address] Cecy Hernandez SPEC GRAVITY 1.010 Normal 1.005-<=1.025 [facility] Comment on above: Performed By: #### P ROGES #### [facility] [address] [address] [address] Cecy Hernandez UA PROTEIN Negative Normal NEGATIVE/ TRACE [facility] Comment on above: Performed By: #### P ROGES #### [facility] [address] [address] [address] Cecy Hernandez UR MICRO IND INDICATED Normal [facility] Comment on above: Performed By: #### P ROGES #### [facility] [address] [place] [address] Dr. Cecy Hernandez Urobilinogen Qn (U) 0.2 {Jone'U}/dL Normal 0.2 - 1. 0 [facility] Comment on above: Performed By: #### P ROGES #### [facility] [address] [place] [address] Dr. Cecy Hernandez PREG HCG QUALon 06-27-2022 , QUAL Negative Normal NEGATIVE [facility] Comment on above: Performed By: #### P REG #### [facility] [address] [place] [address] Dr. Cecy Hernandez PROF CHEM 8 (BAS METB)on Anion gap [Moles/Vol] 12.9 mmol/L Normal [facility] Comment on above: Performed By: #### B MP #### [facility] [address] [place] [address] Dr. Cecy Hernandez Calcium [Mass/Vol] 9.0 mg/dL Normal 8.5-10.1 [facility] Comment on above: Performed By: #### B MP #### [facility] [address] [place] [address] Dr. Cecy Hernandez Chloride [Moles/Vol] 101 mmol/L Normal 98-107 [facility] Comment on above: Performed By: #### B MP #### [facility] [address] [address] [address] Cecy Hernandez CO2 [Moles/Vol] 26.7 mmol/L Normal 21.0-32.0 [facility] Comment on above: Performed By: #### B MP #### [facility] [address] [address] [address] Cecy Hernandez Creatinine [Mass/Vol] 0.91 mg/dL Normal 0.55-1.02 [facility] Comment on above: Performed By: #### B MP #### [facility] [address] [address] [address] Cecy Hernandez EGFR-AF FILIPINO >60 Normal >=60 [facility] Comment on above: Performed By: #### B MP #### [facility] [address] [address] [address] Cecy Hernandez EGFR-NON AF FILIPINO >60 Normal >=60 [facility] Comment on above: Performed By: #### B MP #### [facility] [address] [address] [address] Cecy Hernandez Glucose [Mass/Vol] 86 mg/dL Normal 74-106 [facility] Comment on above: Performed By: #### B MP #### [facility] [address] [address] [address] Cecy Hernandez Potassium [Moles/Vol] 3.6 mmol/L Normal 3.5-5.1 [facility] Comment on above: Performed By: #### B MP #### [facility] [address] [address] [address] Cecy Hernandez Sodium [Moles/Vol] 137 mmol/L Normal 136-145 [facility] Comment on above: Performed By: #### B MP #### [facility] [address] [address] [address] Cecy Hernandez Urea nitrogen [Mass/Vol] 14.0 mg/dL Normal 7.0-18.0 [facility] Comment on above: Performed By: #### B MP #### [facility] [address] [place] [address] Dr. Cecy Hernandez Urea nitrogen/Creatinine [Mass ratio] 15.4 mg/mg Normal [facility] Comment on above: Performed By: #### B MP #### [facility] [address] [place] [address] Dr. Cecy Hernandez URINE MICROSCOPIC ONLYon BACTERIA NONE SEEN Normal NONE SEEN [facility] Comment on above: Performed By: #### P ROGES #### [facility] [address] [place] [address] Dr. Cecy Hernandez Bacteria identified Cx Nom (U) NOT INDICATED Normal [facility] Comment on above: Performed By: #### P ROGES #### [facility] [address] [place] [address] Dr. Cecy Hernandez CAST NONE SEEN Normal NONE SEEN [facility] Comment on above: Performed By: #### P ROGES #### [facility] [address] [place] [address] Dr. Cecy Hernandez Crystals LM Nom (Urine sed) NONE SEEN Normal NONE SEEN [facility] Comment on above: Performed By: #### P ROGES #### [facility] [address] [place] [address] Dr. Cecy Hernandez Epithelial cells LM Ql (Urine sed) FEW Abnormal NONE SEEN /RARE [facility] Comment on above: Performed By: #### P ROGES #### [facility] [address] [place] [address] Dr. Cecy Hernandez MUCOUS NONE SEEN Normal NONE SEEN [facility] Comment on above: Performed By: #### P ROGES #### [facility] [address] [place] [address] Dr. Cecy Hernandez RBC 0-2 Normal 0-2 [facility] Comment on above: Performed By: #### P ROGES #### [facility] [address] [place] [address] Dr. Cecy Hernandez WBC 2-5 Abnormal NONE SEEN [facility] Comment on above: Performed By: #### P ROGES #### [facility] [address] [place] [address] Dr. Cecy Hernandez US PELVIS TRANSVAGon 023 [...] by: KEYANNA SHARPE Date: 2022-06-27 19:44 Normal [facility] FREE T3on 05-19-2022 FREE T3 2.17 pg/mlL Critically low 2.18-3.98 [facility] Comment on above: Performed By: #### B MP, TSH, FT3 #### [facility] [address] [address] [address] Cecy Hernandez PROF CHEM 8 (BAS METB)on Anion gap [Moles/Vol] 11.5 mmol/L Normal [facility] Comment on above: Performed By: #### B MP, TSH, FT3 #### [facility] [address] [address] [address] Cecy Hernandez Calcium [Mass/Vol] 8.7 mg/dL Normal 8.5-10.1 [facility] Comment on above: Performed By: #### B MP, TSH, FT3 #### [facility] [address] [address] [address] Ccey Hernandez Chloride [Moles/Vol] 102 mmol/L Normal 98-107 [facility] Comment on above: Performed By: #### B MP, TSH, FT3 #### [facility] [address] [address] [address] Cecy Hernandez CO2 [Moles/Vol] 26.3 mmol/L Normal 21.0-32.0 [facility] Comment on above: Performed By: #### B MP, TSH, FT3 #### [facility] [address] [address] [address] Cecy Hernandez Creatinine [Mass/Vol] 0.82 mg/dL Normal 0.55-1.02 [facility] Comment on above: Performed By: #### B MP, TSH, FT3 #### [facility] [address] [address] [address] Cecy Hernandez EGFR-AF FILIPINO >60 Normal >=60 [facility] Comment on above: Performed By: #### B MP, TSH, FT3 #### [facility] [address] [address] [address] Cecy Hernandez EGFR-NON AF FILIPINO >60 Normal >=60 [facility] Comment on above: Performed By: #### B MP, TSH, FT3 #### [facility] [address] [address] [address] Cecy Hernandez Glucose [Mass/Vol] 106 mg/dL Normal 74-106 [facility] Comment on above: Performed By: #### B MP, TSH, FT3 #### [facility] [address] [address] [address] Cecy Hernandez Potassium [Moles/Vol] 3.8 mmol/L Normal 3.5-5.1 [facility] Comment on above: Performed By: #### B MP, TSH, FT3 #### [facility] [address] [address] [address] Cecy Hernandez Sodium [Moles/Vol] 136 mmol/L Normal 136-145 [facility] Comment on above: Performed By: #### B MP, TSH, FT3 #### [facility] [address] [address] [address] Cecy Hernandez Urea nitrogen [Mass/Vol] 8.0 mg/dL Normal 7.0-18.0 [facility] Comment on above: Performed By: #### B MP, TSH, FT3 #### [facility] [address] [address] [address] Cecy Hernandez Urea nitrogen/Creatinine [Mass ratio] 9.8 mg/mg Normal [facility] Comment on above: Performed By: #### B MP, TSH, FT3 #### [facility] [address] [address] [address] Cecy Hernandez TSHon 05-19-2022 TSH 0.415 uIU/mL Normal 0.358-3.740 [facility] Comment on above: Performed By: #### B MP, TSH, FT3 #### [facility] [address] [place] [address] Dr. Cecy Hernandez PROGESTERONEon 05-13-2022 Progesterone 15.9 ng/mL Normal [facility] Comment on above: Result Comment: Foll icular phase 0.1 - 0.9 Luteal phase 1.8 - 23.9 Ovulation phase 0.1 - 12.0 First trimester 11.0 - 44.3 Second trimester 25.4 - 83.3 Third trimester 58.7 - 214.0 Postmenopausal 0.0 - 0.1 Performed By: #### P DAWNA #### [facility] [address] [place] [address] Dr. Cecy Hernandez PROGESTERONEon 04-12-2022 Progesterone 9.8 ng/mL Normal [facility] Comment on above: Result Comment: Foll icular phase 0.1 - 0.9 Luteal phase 1.8 - 23.9 Ovulation phase 0.1 - 12.0 First trimester 11.0 - 44.3 Second trimester 25.4 - 83.3 Third trimester 58.7 - 214.0 Postmenopausal 0.0 - 0.1 Performed By: #### P DAWNA #### [facility] [address] [place] [address] Dr. Cecy Hernandez PROGESTERONEon 03-12-2022 Progesterone 13.8 ng/mL Normal [facility] Comment on above: Result Comment: Foll icular phase 0.1 - 0.9 Luteal phase 1.8 - 23.9 Ovulation phase 0.1 - 12.0 First trimester 11.0 - 44.3 Second trimester 25.4 - 83.3 Third trimester 58.7 - 214.0 Postmenopausal 0.0 - 0.1 Performed By: #### P DAWNA #### [facility] [address] [place] [address] Dr. Cecy Hernandez PROGESTERONEon 02-12-2022 Progesterone 12.7 ng/mL Normal [facility] Comment on above: Result Comment: Foll icular phase 0.1 - 0.9 Luteal phase 1.8 - 23.9 Ovulation phase 0.1 - 12.0 First trimester 11.0 - 44.3 Second trimester 25.4 - 83.3 Third trimester 58.7 - 214.0 Postmenopausal 0.0 - 0.1 Performed By: #### P DAWNA #### [facility] [address] [place] [address] Dr. Cecy Hernandez PROGESTERONEon 01-11-2022 Progesterone 19.2 ng/mL Normal [facility] Comment on above: Result Comment: Foll icular phase 0.1 - 0.9 Luteal phase 1.8 - 23.9 Ovulation phase 0.1 - 12.0 First trimester 11.0 - 44.3 Second trimester 25.4 - 83.3 Third trimester 58.7 - 214.0 Postmenopausal 0.0 - 0.1 Performed By: #### P DAWNA #### [facility] [address] [place] [address] Dr. Cecy Hernandez COVID Quick Testingon 2021 Result Positive [employer] [facility] Quick Fluon 11-15-2021 FLUAV Ab CF (S) [Titer] Negative [employer] Other FLUBV Ab CF (S) [Titer] Negative [employer] Other FREE T3on 11-14-2021 FREE T3 2.17 pg/mlL Critically low 2.18-3.98 [facility] Comment on above: Performed By: #### P DAWNA #### [facility] [address] [place] [address] Dr. Cecy Hernandez TSHon 11-14-2021 TSH 0.265 uIU/mL Critically low 0.358-3.740 [facility] Comment on above: Performed By: #### P DAWNA #### [facility] [address] [place], [place] [address] Dr. Cecy Hernandez TSH RANGE SEE BELOW Normal [facility] Comment on above: Result Comment: <0.3 4 UIU/ml HYPERTHYROID 0.34-5.60 UIU/ml EUTHYROID >5.60 UIU/ml HYPOTHYROID Performed By: #### P DAWNA #### [facility] [address] [place], [place] [address] Dr. Cecy Hernandez PROGESTERONEon 10-26-2021 Progesterone 0.1 ng/mL Normal [facility] Comment on above: Result Comment: Foll icular phase 0.1 - 0.9 Luteal phase 1.8 - 23.9 Ovulation phase 0.1 - 12.0 First trimester 11.0 - 44.3 Second trimester 25.4 - 83.3 Third trimester 58.7 - 214.0 Postmenopausal 0.0 - 0.1 Performed By: #### P DAWNA #### [facility] [address] [place], [place] [address] Dr. Cecy Hernandez XR shoulder LT min 2V*on XR shoulder LT min 2V* [facility] [place] [address] XRay Report Signed Patient: Dominique Crenshaw MR#: [id number] 4 : 1985 Acct:[id number] Age/Sex: 36 / F ADM Date: 08/15/21 Loc: [facility] Room: Type: [facility] Attending Dr: Petros Lion MD Ordering Provider: [...] Giovani Nelson M.D.08/15/2021 1:32 PM Dictation Location: [facility]--11 Transcribed By: [facility] 08/15/21 1332 Dictated By: Giovani Nelson DO 08/15/21 1331 Signed By: 08/15/21 1332 [facility] Vital Signs Date Time Vital Sign Value Performing Clinician [facility] 06-25-2023 15:02-0500 Blood Pressure Location [facility] 06-25-2023 15:02-0500 Diastolic blood pressure 90 mm[Hg] [facility] 06-25-2023 15:02-0500 Heart rate 106 /min [facility] 06-25-2023 15:02-0500 SaO2% (BldA) [Mass fraction] 99 % [facility] 06-25-2023 15:02-0500 Systolic blood pressure 120 mm[Hg] [facility] 06-07-2023 09:20-0500 Blood Pressure Location Vinnie Romero [facility] 06-07-2023 09:20-0500 Body temperature 97.88 [degF] Vinnie Romero [facility] 06-07-2023 09:20-0500 Diastolic blood pressure 79 mm[Hg] Vinnie Romero [facility] 06-07-2023 09:20-0500 Heart rate 89 /min Vinnie Romero [facility] 06-07-2023 09:20-0500 SaO2% (BldA) [Mass fraction] 99 % Vinnie Romero [facility] 06-07-2023 09:20-0500 Systolic blood pressure 119 mm[Hg] Vinnie Romero [address] [place] [address] 04-21-2023 08:02-0500 Blood Pressure Location [facility] 04-21-2023 08:02-0500 Diastolic blood pressure 80 mm[Hg] [facility] 04-21-2023 08:02-0500 Heart rate 73 /min [facility] 04-21-2023 08:02-0500 SaO2% (BldA) [Mass fraction] 98 % [facility] 04-21-2023 08:02-0500 Systolic blood pressure 114 mm[Hg] [facility] 02-18-2023 09:29-0400 Blood Pressure Location [facility] 02-18-2023 09:29-0400 Diastolic blood pressure 80 mm[Hg] [facility] 02-18-2023 09:29-0400 Heart rate 102 /min [facility] 02-18-2023 09:29-0400 Respiratory rate 16 /min [facility] 02-18-2023 09:29-0400 SaO2% (BldA) [Mass fraction] 98 % [facility] 02-18-2023 09:29-0400 Systolic blood pressure 120 mm[Hg] [facility] 01-07-2023 10:44-0400 Blood Pressure Location [facility] 01-07-2023 10:44-0400 Diastolic blood pressure 84 mm[Hg] [facility] 01-07-2023 10:44-0400 Heart rate 89 /min [facility] 01-07-2023 10:44-0400 SaO2% (BldA) [Mass fraction] 97 % [facility] 01-07-2023 10:44-0400 Systolic blood pressure 120 mm[Hg] [facility] 12-03-2022 11:28-0400 Blood Pressure Location [facility] 12-03-2022 11:28-0400 Diastolic blood pressure 86 mm[Hg] [facility] 12-03-2022 11:28-0400 Heart rate 97 /min [facility] 12-03-2022 11:28-0400 SaO2% (BldA) [Mass fraction] 96 % [facility] 12-03-2022 11:28-0400 Systolic blood pressure 128 mm[Hg] [facility] 09-29-2022 08:54-0400 Blood Pressure Location [facility] 09-29-2022 08:54-0400 Body temperature 98.78 [degF] [facility] 09-29-2022 08:54-0400 Diastolic blood pressure 82 mm[Hg] [facility] 09-29-2022 08:54-0400 Heart rate 92 /min [facility] 09-29-2022 08:54-0400 SaO2% (BldA) [Mass fraction] 99 % [facility] 09-29-2022 08:54-0400 Systolic blood pressure 118 mm[Hg] [facility] 11-15-2021 19:00-0400 Body height 152.4 cm Melissa Weaver Other [employer] Other 11-15-2021 19:00-0400 Body mass index (BMI) [Ratio] 40.42 kg/m2 Melissa Weaver Other [employer] Other 11-15-2021 19:00-0400 Body temperature 96 [degF] Melissa Weaver Other [employer] Other 11-15-2021 19:00-0400 Body weight 93.9 kg Melissa Weaver Other [employer] Other 11-15-2021 19:00-0400 SaO2% (BldA) [Mass fraction] 98 % Melissa Weaver Other [employer] Other Encounters Encounter Date Encounter Type Care Provider Facility Start: 02-23-2024 ambulatory Clint Caraballoi ty:[facility] Start: 10-16-2023 ambulatory Clint Lee ty:[facility] Start: 08-03-2023 End: 08-03-2023 ambulatory EVELYNE CARCAMO Facility:[facility] Start: 08-03-2023 End: 08-03-2023 Patient encounter procedure Cast Tech Zoe Work Phone: Orthopaedics Comment on above: 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) Start: 07-27-2023 Clinisync Result Encounter Mikal Nas DO Work Phone: [facility] External [facility] Unsolicited Start: 07-27-2023 Clinisync Result Encounter Mikal Nas DO Work Phone: [facility] External [facility] Unsolicited Start: 07-21-2023 End: 07-21-2023 ambulatory EVELYNE CARCAMO Facility:[facility] Start: 07-21-2023 End: 07-21-2023 Patient encounter procedure [employer] Zoe Work Phone: Orthopaedics Comment on above: 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) Start: 07-21-2023 End: 07-22-2023 ambulatory Clint Ortiz Facility:[facility] Start: 07-20-2023 Telephone encounter Evelyne Carcamo DPM Work Phone: Orthopaedics Comment on above: Patient Request Start: 07-13-2023 End: 07-13-2023 ambulatory EVELYNE CARCAMO Facility:[facility] Start: 06-25-2023 End: 06-26-2023 ambulatory Clint Charles Crotorresjas Facility:[facility] Start: 06-25-2023 End: 06-26-2023 ambulatory Clint Tayjas Facility:[facility] Start: 06-25-2023 End: 06-25-2023 Patient encounter procedure Clint Ortiz [facility] Start: 06-25-2023 End: 06-25-2023 Patient encounter procedure Clint Ortiz [facility] Start: 06-07-2023 End: 06-08-2023 ambulatory Vinnie Romero Facility:[facility] Start: 06-07-2023 End: 06-07-2023 Patient encounter procedure Vinnie Romero [facility] Start: 04-21-2023 End: 04-22-2023 ambulatory Clint Araceli Maggijas Facility:[facility] Start: 04-21-2023 End: 04-21-2023 Patient encounter procedure Clint Ortiz [facility] Start: 04-20-2023 End: 04-21-2023 ambulatory Clint Araceli Esparzatorresjas Facility:[facility] Start: 04-20-2023 End: 04-20-2023 Patient encounter procedure Clint Araceli Ortiz [facility] Start: 02-18-2023 End: 02-19-2023 ambulatory Clint Tayjas Facility:[facility] Start: 02-18-2023 End: 02-18-2023 Patient encounter procedure Clint Charles Maggijas [facility] Start: 02-18-2023 End: 02-18-2023 Well adult monitoring check done Clint Araceli Maggijas [facility] Start: 01-07-2023 End: 01-08-2023 ambulatory Clint Ortiz Facility:[facility] Start: 01-07-2023 End: 01-07-2023 Patient encounter procedure Clint Ortiz [facility] [place] Start: 12-08-2022 ambulatory Clint Vilmaaidan Facility :[facility] Start: 12-03-2022 End: 12-04-2022 ambulatory Clint Ortiz Facility:[facility] Start: 12-03-2022 End: 12-03-2022 Patient encounter procedure Clint Ortiz [facility] Start: 10-27-2022 End: 10-28-2022 ambulatory Clint Ortiz Facility:[facility] Start: 10-27-2022 End: 10-27-2022 Patient encounter procedure Clint Ortiz [facility] Start: 10-16-2022 End: 10-17-[address] MIKAL LOVELL . Facility: Start: 10-06-2022 End: 10-07-2022 ambulatory Clint Ortiz Facility:[facility] Start: 10-06-2022 End: 10-06-2022 Patient encounter procedure [place] Araceli Ortiz [facility] Start: 09-29-2022 End: 09-30-2022 ambulatory Clint Ortiz Facility:[facility] Start: 09-29-2022 End: 09-29-2022 Patient encounter procedure Clint Ortiz [facility] Start: 09-15-2022 End: 09-16-2022 [...] 11-15-2021 End: 11-15-2021 ambulatory Melissa Weaver Other [employer] Other Start: 11-15-2021 Office outpatient vi sit 25 minutes Melissa Weaver [facility] Start: 11-14-2021 End: 11-15-2021 ambulatory REEDRUSTAM DYE Facility:[facility] Start: 10-24-2021 End: 10-25-[address] MIKAL LOVELL . Facility:[facility] Start: 08-15-2021 End: 08-15-2021 ambulatory Petros Lion Other [employer] Other Start: 08-15-2021 Office outpatient ne w 30 minutes Petros Lion [facility] Procedures Date Procedure Procedure Detail Performing [...] 11:10 AM EDT Office Visit [facility] GRUET[facility]AAGER [address] [facility] [address] [place] [address] Sendy Oquendo MD [address] [facility] [address] [place] [address] [facility] Start: 06-15-2023 Depression Assessment Depression Ass essment [facility] Start: 2015 Screening for malign ant neoplasm of cervix HPV Testing [facility] Start: 2006 Screening for malign ant neoplasm of cervix Pap Testing [facility] Start: 2004 Urine microalbumin profile DTaP,Tdap,Td Vaccine (1 - Tdap) [facility] Start: 2003 Hepatitis C screening Hepatitis C Sc reening [facility] Start: 2003 HIV screening HIV Screening [facility] Start: 1985 Covid-19 Vaccine (#1) Covid-19 Vacci ne (#1) [facility] Start: 1985 Hepatitis B Vaccine (1 of 3 - 3-dose series) Hepatitis B Vaccine (1 of 3 - 3-dose series) [facility] Immunizations Immunization Date Immunization Notes Care Provider Earnestine park 06-23-2023 influenza, injectabl e, quadrivalent, preservative free [facility] 04-21-2023 influenza, injectabl e, quadrivalent, preservative free [facility] 05-05-2022 influenza virus vacc ine, unspecified formulation Clint [facility] 05-21-2021 influenza virus vacc ine, unspecified formulation [facility] Payers Date Payer Category Payer Unknown [id number] 2019 Medicare [id number] 1985 Unknown [id number] 2.16.84 0.1.421790.3.579.2.593 1985 Unknown [id number] 2.16.84 0.1.300673.3.579.2.593 1985 Unknown [id number] 2.16.84 0.1.615632.3.579.2.593 1985 Unknown [id number] 2.16.84 0.1.159407.3.579.2.593 1985 Unknown [id number] 2.16.84 0.1.319306.3.579.2.593 1985 Unknown [id number] 2.16.84 0.1.480063.3.579.2.593 1985 Unknown [id number] 2.16.84 0.1.626968.3.579.2.593 1985 Unknown [id number] 2.16.84 0.1.329975.3.579.2.593 1985 Unknown [id number] 2.16.84 0.1.678559.3.579.2.593 1985 Unknown [id number] 2.16.84 0.1.988364.3.579.2.593 1985 Unknown [id number] 2.16.84 0.1.698909.3.579.2.593 1985 Unknown [id number] 2.16.84 0.1.914767.3.579.2.593 1985 Unknown [id number] 2.16.84 0.1.414015.3.579.2.593 1985 Unknown [id number] 2.16.84 0.1.263236.3.579.2.593 1985 Unknown [id number] 2.16.84 0.1.076087.3.579.2.593 1985 Unknown [id number] 2.16.8 40.1.213569.3.579.2.727 1985 Unknown [id number] 2.16.8 40.1.530390.3.579.2.72 1985 Unknown [id number] 2.16.8 40.1.175867.3.579.272 1985 Unknown [id number] 2.16.8 40.1.044100.3.579.272 1985 Unknown [id number] 2.16.8 40.1.134419.3.579.2 1985 Unknown [id number] 2.16.8 40.1.580893.3.579.272 1985 Unknown [id number] 2.16.8 40.1.108386.3.579.2 1985 Unknown [id number] 2.16.8 40.1.772833.3.579.2 1985 Unknown [id number] 2.16.8 40.1.166933.3.579.272 1985 Unknown [id number] 2.16.8 40.1.475895.3.579.2 1985 Unknown [id number] 2.16.8 40.1.280878.3.579.2 1985 Unknown [id number] 2.16.8 40.1.407745.3.579.272 1985 Unknown [id number] 2.16.8 40.1.540394.3.579.272 1985 Unknown [id number] 2.16.8 40.1.879435.3.579.272 1985 Unknown [id number] 2.16.8 40.1.802012.3.579.272 1985 Unknown [id number] 2.16.8 40.1.796101.3.579.272 1985 Unknown [id number] 2.16.8 40.1.922531.3.579.2.727 1959 Medicare [id number] 2.1 6.840.1.893189.19 1959 Unknown [id number] 2. 16.840.1.541701.19 1959 Unknown [id number] Social History Date Type Detail Facility Start: 04-15-2023 End: 07-13-2023 Sex Assigned At [facility] Start: 09-29-2022 End: 01-07-2023 Tobacco smoking status Never [facility] Tobacco Current vaping o r e-cigarette use Smokeless Tobacco Use:. Vaping, 12 per day. Ready to change: No. [facility] Tobacco smoking status No Smokin g Status Entered [facility] Start: 11-21-2022 End: 06-07-2023 Tobacco smoking status Ex-smoker (finding) [facility] Tobacco smoking stat [facility] Tobacco smoking consumption unknown [facility] Start: 04-15-2023 End: 07-13-2023 History of Social function [facility] Start: 1985 Sex Assigned At Not on file [facility] History of tobacco use Current smoker NOM [...] Healthcare Start: 11-14-2022 Sexual orientation Heterosexual (finding) [facility] Healthcare Functional Status Date Assessment Result Facility 06-07-2023 Functional Status N/A [facility] 04-21-2023 Functional Status N/A [facility] 02-18-2023 Functional Status N/A [facility] 01-07-2023 Functional Status N/A [facility] [place] 12-03-2022 Functional Status N/A [facility] 09-29-2022 Functional Status N/A [facility] Clinical Notes 08-15-2021 to 08-03-2023 Antonio Moreno Cast Tech - 08/03/2023 3:45 PM ESTLopeAntonio linares Cast Tech - 07/21/2023 3:40 PM ESTTelephone Encounter - Shahram Lee OCCA - 07/20/2023 11:19 AM ESTLaboratory Note Date & Type Note Facility 08-03-2023 Note HNO ID: [id number] Author: ANTONIO MORENO Cast Tech Service: ? Author Type: Director Of Adult Epilepsy Type: Progress Notes Filed: 08/03/2023 15:47 Note [...] given. Will f/u as scheduled/prn. SHAKIRA Mejía [facility] 08-03-2023 History of Presen t illness Narrative [...] scheduled/prn. SHAKIRA Mejía documented in this encounter [facility] 07-21-2023 Note HNO ID: [id number] Author: ANTONIO MORENO Cast Tech Service: ? Author Type: Director Of Adult Epilepsy Type: Progress Notes Filed: 07/21/2023 15:41 Note Text: Ms. Llamas has been informed that the supervising physician today is Dr. Lynch. I am carrying out the treatment plan of Dr. Carcamo. Patient came in today c/o of Cast being loose. Cast was removed and skin inspected. Skin appeared normal. Cast was reapplied. Patient instructed follow-up with doctor during next scheduled appointment/prn. SHAKIRA Mejía [facility] 07-21-2023 History of Presen t illness Narrative [...] appointment/prn. SHAKIRA Mejía documented in this encounter [facility] 07-20-2023 Miscellaneous Notes Called patient and offered [...] calling: self Call patient at: on cell [phone] (home) Was an appointment scheduled: No Closing statement: Symptom Call: Thank you for calling [facility], your call is very important. A nurse will call in approximately 2-4 hours during business hours. If this is an emergency, please contact 911. Cheyenne Mccarty documented in this encounter [facility] 07-13-2023 Note HNO ID: [id number] Author: ANTONIO MORENO Cast Tech Service: ? Author Type: Director Of Adult Epilepsy Type: Progress Notes Filed: 07/13/2023 15:22 Note Text: Applied A Short Leg Weightbearing Cast to the left leg. Instructions on cast care given. A medium Cast Shoe was dispensed. Will f/u as scheduled/prn. Antonio Moreno, [facility] 07-13-2023 Note HNO ID: [id number] Author: EVELYNE CARCAMO DPM Service: ? Author [...] , HBA1C , VITD25 in the last [id number] hours. X-ray deformity foot and ankle consistent [...] I discussed wit (more content not included)... [facility] 07-13-2023 Note HNO ID: [id number] Author: MAVIS REEDER RT(Mainor) Service: ? Author [...] PATIENT PRESENTS WITH AN IMPLANTABLE OR ATTACHED CHIEF RECORDIST: No RADIOLOGY DEPARTMENT: General X-ray: Exam(s) Completed: Lower Extremity X-Ray(s): Ankle, Bilateral and Foot, Bilateral PERIPHERAL IV DATA: Not applicable SIGNED BY: RT Karmen(R) July 13, 2023 2:14 PM [facility] 06-25-2023 Hospital Discharg e instructions Patient Education 06/25/2023 15:58:28 Heat Therapy, Xgbc-fw-Btna Heat Therapy Heat therapy can help ease [...] provider. Document Revised: 04/03/2021 Document Reviewed: 04/03/2021 [employer] Patient Education 2022 [employer]. Follow Up Care 06/22/2023 09:04:37 With:Clint Ortiz DO, FAM, PED Address: [address] [place] [address] [phone] When:1 month Comments:1-2 month f/u - 20 min slot [facility] [place] 02-18-2023 Hospital Discharg e instructions Patient Education [...] health care provider or diet and nutrition club ambassador (dietitian). This may include: ?Eating fewer calories. [...] provider. Document Revised: 07/28/2021 Document Reviewed: 07/28/2021 [employer] Patient Education 2022 [employer] 02/18/2023 10:46:33 BMI for Adults BMI [...] numbers. This can be done either in [place] ([place] or metric measurements. Note that charts and online BMI calculators are available to help you find your BMI quickly and easily without having to do these calculations yourself. To calculate your BMI in [place] ([place] measurements: 1.Measure your weight in pounds [...] Centers for Disease Control and Prevention: www.cdc.gov [place] Heart Association: www.heart.org National Heart, Lung, and Blood Novelty: www.nhlbi.nih.gov Summary Body mass index (BMI) is a number that is calculated from a person's weight and height. BMI may help estimate how much of a person's weight is composed of fat. BMI can help identify those who may be at higher risk for certain medical problems. BMI can be measured using [place]atari measurements or metric measurements. BMI charts are used to identify whether you are underweight, normal weight, overweight, or obese. This information is not intended to replace advice given to you by your health care provider. Make sure you discuss any questions you have with your health care provider. Document Revised: 02/22/2020 Document Reviewed: 12/30/2019 [employer] Patient Education 2022 [employer]. 02/18/2023 10:19:14 Steps to Quit Smoking, Riqj-lu-Dzcq Steps to Quit Smoking Smoking tobacco is [...] a prescription, and some you can buy ruam-ota-ikmurbi. Some medicines may contain a drug called [...] you. Call a phone quitline, such as 7-272-CVJG-NOW, reach out to support groups, or work [...] provider. Document Revised: 05/23/2022 Document Reviewed: 05/23/2022 [employer] Patient Education 2022 [employer]. 02/18/2023 10:19:12 Steps to Quit Smoking Steps [...] require a prescription. You can also purchase kseg-nrb-mxkqmmj medicines. Medicines may have nicotine in them [...] and encouragement. Call telephone quitlines, such as 7-576-BFNL-NOW, reach out to support groups, or work [...] provider. Document Revised: 05/23/2022 Document Reviewed: 05/23/2022 [employer] Patient Education 2022 [employer]. 02/18/2023 10:19:04 Major Depressive Disorder, Adult Major [...] things, which may include: Your personality traits. Patrick or conditioned behaviors or thoughts or feelings [...] your health care provider. General instructions Take iywb-mmc-nfvlybk and prescription medicines only as told by your health care provider. Eat a healthy diet and get plenty of sleep. Consider joining a support group. Your health care provider may be able to recommend one. Keep all follow-up visits as told by your health care provider. This is important. Where to find more information National [place] on Mental Illness: www.leobardo.org U.S. National Novelty of Mental Health: www.nimh.nih.gov Contact a health [...] department or: Call your local emergency services (821 in the U.S.). Call a suicide crisis helpline, such as the National Suicide Prevention Lifeline at or 382 in the [place]. This is open 24 hours a day in the [place] Text the Crisis Text Line at 808606 (in the [place] Summary Major depressive disorder [...] provider. Document Revised: 12/25/2021 Document Reviewed: 05/12/2020 [employer] Patient Education 2022 [employer]. 02/18/2023 10:19:00 Health Risks of Smoking Health [...] Department of Health and Human Services: www.smokefree.gov [place] Lung Association: www.freedomfromsmoking.org [place] Heart Association: www.heart.org Where to find more [...] provider. Document Revised: 06/03/2022 Document Reviewed: 06/03/2022 [employer] Patient Education 2022 [employer]. [facility] 09-29-2022 Evaluation + Plan note Future Scheduled [id number] 09/29/22TSH With T4fr Reflex 09/29/22Comprehensive Metabolic Panel 09/29/22Lipid Panel 09/29/22 [facility] 11-15-2021 Evaluation note Encounter Date Diagnosis Assessment [...] treatment plan. Patient left in stable condition [facility] 03-03-2022 Evaluation note* Encounter Date Diagnosis [...] of both lower extremities (ICD-10 - Q66.89) [facility] Evaluation + Plan note Future Appointments Appointment Date:10/06/2022 09:30:00 AM Scheduled Provider: Location:[facility] Appointment Type:PUL Pulmonary Function Test (FT) Future Scheduled Tests Laboratory* HgbA1c 09/29/22 * TSH With T4fr Reflex 09/29/22 * Comprehensive Metabolic Panel 09/29/22 * Lipid Panel 09/29/22 [facility] Evaluation + Plan note Future Appointments Appointment Date:12/03/2022 10:40:00 AM Scheduled Provider:Clint Ortiz DO Location:[facility] Appointment Type: Open Future Scheduled Tests Laboratory* HgbA1c 09/29/22 * TSH With T4fr Reflex 09/29/22 * Comprehensive Metabolic Panel 09/29/22 * Lipid [facility]ments Appointment Date:01/07/2023 10:20:00 AM Scheduled Provider:Clint Ortiz DO Location:[facility] Appointment Type: Open [facility] Evaluation + Plan note Future Appointments Appointment Date:02/18/2023 09:30:00 AM Scheduled Provider: Location:[facility] Appointment Type: Medicare Wellness Initial Appointment Date:02/18/2023 11:00:00 AM Scheduled Provider:Clint Ortiz DO Location:[facility] Appointment Type: Open Future Scheduled Tests Laboratory* T3 Total 02/05/23 * Basic Metabolic Panel 01/07/23 * Magnesium Level 01/07/23 * Thyroid Stimulating Hormone 02/05/23 * Free T4 02/05/23 [facility] [place] Evaluation + Plan note Future Appointments Appointment Date:04/21/2023 08:00:00 AM Scheduled Provider:Clint Ortiz DO Location:[facility] Appointment Type: Open Appointment Date:02/23/2024 11:00:00 AM Scheduled Provider: Location:[facility] Appointment Type: Medicare Wellness Subsequent Future Scheduled Tests Laboratory* T3 Total 02/05/23 * Basic Metabolic Panel 01/07/23 * Magnesium Level 01/07/23 * Thyroid Stimulating Hormone 02/05/23 * Free T4 02/05/23 [facility] Evaluation + Plan note Future Appointments Appointment Date:04/21/2023 08:00:00 AM Scheduled Provider:Clint Ortiz DO Location:[facility] Appointment Type: Open Appointment Date:02/23/2024 11:00:00 AM Scheduled Provider: Location:[facility] Appointment Type: Medicare Wellness Subsequent Diagnostic Tests Pending * T3 [facility]ments Appointment Date:07/21/2023 08:00:00 AM Scheduled Provider:Clint Ortiz DO Location:[facility] Appointment Type: Open Appointment Date:02/23/2024 11:00:00 AM Scheduled Provider: Location:[facility] Appointment Type: Medicare Wellness Subsequent Future Scheduled Tests Laboratory* TSH With T4fr Reflex 05/19/23 [facility] Evaluation + Plan note Future Appointments Appointment Date:07/21/2023 08:00:00 AM Scheduled Provider:Clint Ortiz DO Location:[facility] Appointment Type: Open Appointment Date:02/23/2024 11:00:00 AM Scheduled Provider: Location:[facility] Appointment Type: Medicare Wellness Subsequent [facility] Evaluation note* Diagnosis Club foot of both lower extremities- [facility] Club foot of both lower extremities- [facility] Narrative - Reported* Type Description Date Medical History chronic depression Medical History PCOS Medical History fibromyalgia Surgical History corrected clubbed feet Surgical History wisdom teeth Surgical History MRSA removal right thigh Surgical History Surgical History DNC x2 Surgical History Cystectomy left ovay Surgical History gall bladder Surgical History right carpal tunnel Surgical History GI scope with 2 biopsy [facility] Hospital course Narrative No data available for this section [facility] Hospital Discharge instructions No data available for this section [facility] Progress note No data available for this section [facility] Reason for referral (narrative) Referred by: Clint Ortiz DO [facility] Summary Purpose Family History [...] both lo wer extremities (Q66.89) Referral Organization [facility] Referring Provider First Name Cheyenne Referring Provider Last Name Anh Referring Provider Specialty Nurse Pract itioner Referred Organization [facility] Referred Address [address], [place],[address] Referred Provider Specialty Podiatry - S urgical Chiropody Referral Priority Routine General Notes Cheyenne Avila 09:30:01 AM >referral is ready to be sent once office note is completedCheyenne Avila 08/19/2021 08:34:16 AM >note is not completed yet Additional Source Comments INFORMATION SOURCE (unrecogn ized section and content) DATE CREATED AUTHOR 08/27/2021 [facility] DATE CREATED AUTHOR AUTHOR'S ORGANIZ ATION 10/23/2022 [facility] DATE CREATED AUTHOR AUTHOR'S ORGANIZ ATION 08/02/2023 [facility] DATE CREATED AUTHOR AUTHOR'S ORGANIZ ATION 08/04/2023 [facility] REASON FOR VISIT (unrecogniz ed section and content) Reason Comments Patient Request Patient Care team informatio n (unrecognized section and content) Third Rigger Relationship Specialty Start Date End Date Clint Ortiz II, DO [address] [place] [address] [place] [address] Referring Family Medicine 07/06/23 Third Rigger Relationship Specialty Start Date End Date Clint Ortiz DO PCP - General 11/21/22 Third Rigger Relationship Specialty Start Date End Date Clint Ortiz [facility] [address] [facility] [place] [address] Referring Family Medicine 07/06/23 Source Comments (unrecognize d section and content) In the event this informatio n is protected by the Federal Confidentiality of Alcohol and Drug Abuse Patient Records regulations: The Federal rules restrict any use of the information to criminally investigate or prosecute any alcohol or drug abuse patient.[facility] the event this information is protected by the Federal Confidentiality of Alcohol and Drug Abuse Patient Records regulations: The Federal rules restrict any use of the information to criminally investigate or prosecute any alcohol or drug abuse patient.[facility] the event this information is protected by the Federal Confidentiality of Alcohol and Drug Abuse Patient Records regulations: The Federal rules restrict any use of the information to criminally investigate or prosecute any alcohol or drug abuse patient.[facility] FOR RECORDS PERTAINING TO PATIENTS WHO ARE [...] BE BASED ON THE PRIMARY CLINICAL RECORDS. [facility] globa[employer]ly [facility]. provides no warranty or guarantee of the accuracy or completeness of information in this document.
== END 2023-08-10 11:00 ==
LOC: FL 08-11 09:31
PROVIDERS: Radiology Diagnostic Radiology; Visit Provider Obstetrics & Gynecology
DX: N83.9 Noninflammatory disorder of ovary, fallopian tube and broad ligament, unspecified (principal)
CPT/HCPCS: 36415; 58340; 74740; 84702; Q9966

== ENCOUNTER 2023-08-24 14:59 | Outpatient (OUT) | payer BC, MEDICARE, SELFPAY ==
--- OUTSIDE RECORDS SUMMARY | 2023-08-24 15:14 | XMS_ITS | CCD ---
Author Name Unknown Address [address] [place] [address] Organization [facility] Care Team Providers Care Technical Consultant Name Role Phone Petros Lion Unavailable Melissa [...] DR HOWARD Admitting Unavailable NAS ., DR OHWARD Consulting Unavailable FAWWAD, REED H Primary Care Unavailable NAS ., DR HOWARD Attending Unavailable ANS ., DR HOWARD Admitting Unavailable NAS ., [...] Unavailable FAWWAD, REED H Primary Care Unavailable REINECK, DR DIDI Macdonald Attending Unavailabl e REINECK, [...] NAS ., DR HOWARD Consulting Unavailable FAWWAD, [facility] H Primary Care Unavailable NAS ., DR HOWARD Attending Unavailable NAS ., DR HOWARD Admitting Unavailable NAS ., DR HOWARD Consulting Unavailable NAS ., DR HOWARD Attending Unavailable [facility], DR RUANO Primary Care Unavailable FAWWAD, REED H Consulting Unavailable FAWWAD, REED H Attending Unavailable FAWWAD, REED H Admitting Unavailable FAWWAD, REED H Primary Care Unavailable Clint Ortiz Primary Care Physician Unavail able Angel TIAN DO, Robert James Unavailable Clint Ortiz DO Primary Care Provider EVELYNE CARCAMO Referring Unavailable EVELYNE CARCAMO Attending Unavailable EVELYNE CARCAMO Referring Unavailable EVELYNE CARCAMO Attending Unavailable EVELYNE CARCAMO Referring Unavailable Clint Ortiz Attending Unavailable Clint Ortiz Attending Unavailable Clint Ortiz Attending Unavailable Clint Ortiz Admitting Unavailable Clint Ortiz Referring Unavailable Timmis, Sendy H Admitting Unavailable Timmis, Sendy H Attending Unavailable Timmis, Sendy H Referring Unavailable Vinnie Romero Admitting Unavailable Vinnie Romero Attending Unavailable Clint Ortiz Admitting Unavailable Clint Ortiz Attending Unavailable Clint Ortiz Attending Unavailable Clint Ortiz Admitting Unavailable Clint Ortiz Admitting Unavailable Clint Ortiz Attending Unavailable Clint Ortiz Attending Unavailable Clint Ortiz Admitting Unavailable Clint Ortiz Referring Unavailable Vinnie Romero [...] [ziprasidone] Drug Allergy 3 anaphylaxis, Anaphylaxis (disorder) [facility] Primary Care (2 sources) ziprasidone; Translations: [Geodon] Drug Allergy [facility] Repository (1 source) Misc-Drug Drug allergy (disorder) [facility] Rep[facility] (1 source) ziprasidone Drug [...] qAM, # 30 cap(s), Refills(s) 5, Pharmacy: [facility]/pharmacy #[id number], 158, cm, 09/29/22 9:07:00 EDT, [...] DULoxetine 30 mg delayed release oral capsule (8 sources) Serotonin and Norepinephrine Reuptake Inhibitor Start: 06-25-2023 take 1 capsule by mouth twice daily duloxetine 30 mg oral delayed release capsule 30 mg = 1 cap(s), Oral, BID, # 60 cap(s), Refills(s) 2, [id number], cm, 06/25/23 15:06:00 EST, Height/Length Dosing, 87.5, kg, 06/25/23 15:06:00 EST, Weight Dosing Start Date: 06/25/23 Status: Ordered Start: 06-25-2023 take 1 capsule by [facility] once daily DULoxetine (CYMBALTA) 30 mg capsule Take 1 capsule by mouth once daily. 0 06/25/2023 Active Comment on above: Take 1 capsule by [facility] once daily. levothyroxine sodium 0.05 mg oral tablet (20 sources) l-Thyroxine Start: take 1 tablet by mouth once daily levothyroxine 50 mcg (0.05 mg) Tab 50 mcg = 1 tab(s), Oral, Daily, # 30 tab(s), Refills(s) 5, [id number] 155, cm, 07/21/23 8:08:00 EST, Height/Length Dosing, 86.8, kg, 07/21/23 8:08:00 EST, Weight Dosing Start Date: 07/21/23 Status: Ordered Start: 05-20-2023 take 1 tablet by mouth once le vothyroxine (SYNTHROID) 75 mcg tablet Take 1 tablet by mouth every afternoon. 0 05/20/2023 Active Start: 04-21-2023 take 1 tablet by rossana once daily levothyroxine 75 mcg (0.075 mg) Tab 75 mcg = 1 tab(s), Oral, Daily, # 30 tab(s), Refills(s) 5, Pharmacy: [facility]/pharmacy #[id number], 158, cm, 04/21/23 8:07:00 EST, Height/Length Dosing, 86, kg, 04/21/23 8:07:00 EST, Weight Dosing Start Date: 04/21/23 Status: Ordered Start: 01-07-2023 take 1 tablet by rossana th once daily levothyroxine 88 mcg (0.088 mg) Tab 88 mcg = 1 tab(s), Oral, Daily, # 30 tab(s), Refills(s) 5, [id number] 158, cm, 01/07/23 10:49:00 EDT, Height/Length Dosing, 86.3, kg, 01/07/23 10:49:00 EDT, Weight Dosing Start Date: 01/07/23 Status: Ordered Start: 11-21-2022 take 1 tablet by rossana once daily levothyroxine 100 mcg (0.1 mg) Tab 100 mcg = 1 tab(s), Oral, Daily, # 90 tab(s), Refills(s) 4, [id number] 158, cm, 09/29/22 9:07:00 EDT, Height/Length Dosing, 92.3, kg, 09/29/22 9:07:00 EDT, Weight Dosing Start Date: 11/21/22 Status: Ordered Start: 09-29-2022 take 1 tablet by rossana once daily levothyroxine 100 mcg (0.1 mg) Tab 100 mcg = 1 tab(s), Oral, Daily, # 30 tab(s), Refills(s) 0 Start Date: 09/29/22 Status: Ordered take 1 tablet by rossana before mealtime levothyroxine (Synthroid, Levoxyl) 100 MCG tablet Take 100 mcg by mouth in the morning. Take before meals. 0 Active take 1 tablet by rossana once daily in the morning Levothroid 100 MCG 1 tablet in the morning on an empty stomach Orally Once a day Active Comment on above: Take 1 tablet by rossana every afternoon. metFORMIN hydrochloride 500 mg oral tablet (20 sources) Biguanide Start: take 1 tablet by mouth twice daily metformin 500 mg Tab 500 mg = 1 tab(s), Oral, BID, # 180 tab(s), Refills(s) 4, [id number] 158, cm, 09/29/22 9:07:00 EDT, Height/Length Dosing, 92.3, kg, 09/29/22 9:07:00 EDT, Weight Dosing Start Date: 11/21/22 Status: Ordered take 1 tablet by rossana every twenty-four hours metFORMIN HCl 500 MG 1 tablet with a meal Orally Once a day Active Comment on above: Take 500 mg by mouth two times a day. 8 hr methylphenidate hydrochloride 20 mg extended release oral tablet (18 sources) Central Nervous System Stimulant Start: 01-06-20 23 take 1 tablet by mouth once daily methylphenidate 20 mg ER Tab 20 mg = 1 tab(s), Oral, Daily, # 30 tab(s), Refills(s) 0, Pharmacy: [facility]/pharmacy #[id number], 155, cm, 07/21/23 8:08:00 EST, Height/Length Dosing, 86.8, kg, 07/21/23 8:08:00 EST, Weight Dosing Start Date: 08/13/23 Status: Ordered Start: 12-03-2022 take 1 tablet by rossana once daily methylphenidate 10 mg oral tablet, extended release 10 mg = 1 tab(s), Oral, Daily, # 30 tab(s), Refills(s) 0, Pharmacy: [facility]/pharmacy #[id number], 158.3, cm, 12/03/22 11:34:00 EDT, Height/Length Dosing, 87.3, kg, 12/03/22 11:34:00 EDT, Weight Dosing Start Date: 12/03/22 Status: Ordered Comment on above: Take 1 tablet by rossana every afternoon. permanent handicap placard (10 sources) Start: 3 permanent handicap placard permanent handicap placard, See Instructions, 1 EA, 11, for chronic medical condition, Supply, 158, cm, 01/07/23 10:49:00 EDT, Height/Length Dosing, 86.3, kg, 01/07/23 10:49:00 EDT, Weight Dosing Start Date: 01/07/23 Status: Ordered Multivitamins (15 sources) Start: 3 take 1 tablet by mouth once daily Multivitamins 1 tab(s), Oral, Daily, Refill(s) 0 Start Date: 09/29/22 Status: Ordered MV-Min-Fe Fum-FA-DHA ( 1 PO) (1 source) MV-Min- Fe Fum-FA-DHA ( 1 PO) Take 1 tablet by mouth in the morning. 0 Active Completed/Discontinued Medications Medication Drug Class(es) Dates Sig (Normalized) Sig (Original) [id number] 200 actuat albuterol 0.09 mg/actuat metered dose inhaler (6 sources) beta2-Adrenergic Agonist Start: 07-06-2023 albuterol HFA [...] Albuterol (Eqv-ProAir HFA) 90 mcg/inh inhalation aerosol (12 sources) Start: take 8.5 g by inhalation every six hours Albuterol (Eqv-ProAir HFA) 90 mcg/inh inhalation aerosol 180 mcg, 2 puff(s), Inhalation, q6hr, 8.5 gm, Refill(s) 11, [facility]/pharmacy #[id number], 158, cm, 04/21/23 8:07:00 EST, Height/Length Dosing, 86, kg, 04/21/23 8:07:00 EST, Weight Dosing Start Date: 05/04/23 Status: Ordered Start: 10-29-2022 take 8.5 g by inhala tion every six hours Albuterol (Eqv-ProAir HFA) 90 mcg/inh inhalation aerosol 180 mcg, 2 puff(s), Inhalation, q6hr, 8.5 gm, Refill(s) 11, [facility]/pharmacy #[id number], 158, cm, 09/29/22 9:07:00 EDT, Height/Length Dosing, 92.3, kg, 09/29/22 9:07:00 EDT, Weight Dosing Start Date: 10/29/22 Status: Ordered busPIRone hydrochloride 10 mg oral tablet (15 sources) Start: 05-20-2023 take 1 tablet by mouth every twelve hours busPIRone (BUSPAR) 10 mg tablet Take 1 tablet by mouth every 12 hours. 0 05/20/2023 Active Start: 04-21-2023 take 1 tablet by rossana th twice daily busPIRone 10 mg Tab 10 mg = 1 tab(s), Oral, BID, # 60 tab(s), Refills(s) 5, Pharmacy: [facility]/pharmacy #[id number], 158, cm, 04/21/23 8:07:00 EST, [...] 12 hours. letrozole 2.5 mg oral tablet (20 sources) Aromatase Inhibitor Start: 07-09-2023 take 2 [...] on above: Take 2 tablets by mo uth once daily. Triamcinolone (2 sources) Corticosteroid Start: 08-15-2021 Kenalog -40 mg Aug, 40 mg Problems Active Problems Problem Classification Problem Date Documented Date Episodic/Chronic Anxiety disorders (19 sources) Anxiety disorder; Translations: [Anxiety disorder, unspecified] Onset: 09-29-2022 Chronic Asthma (17 sources) Asthma; Translations: [Unspecified asthma, uncomplicated] Onset: 09-29-2022 Chronic Attention-deficit, conduct, and disruptive behavior disorders (20 sources) Attention deficit hyperactivity disorder; Translations: [Attention-deficit hyperactivity disorder, unspecified type] Onset: 09-29-2022 Chronic Fluid and electrolyte disorders (12 sources) Hypokalemia; Translations: [Hypokalemia] Onset: 01-07-2023 Episodic Immunizations and screening for infectious disease (2 sources) Encounter for screening for human papillomavirus (HPV); Translations: [Vaccination given] Onset: 09-01-2022 Episodic Mood disorders (19 sources) Mild recurrent major depression; Translations: [Major depressive disorder, recurrent, mild] Onset: 09-29-2022 Resolved: 11-10-2022 Chronic Osteoarthritis (12 sources) Degenerative joint disease of ankle AND/OR foot; Translations: [Primary osteoarthritis, left ankle and foot] Onset: 07-13-2023 07-13-2023 Chronic Other congenital anomalies (12 sources) Other specified congenital deformities of feet; 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, unspecified] Onset: 08-15-2021 Resolved: 08-15-2021 Chronic Other congenital anomalies (2 sources) Congenital deformity of foot; 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] Onset: 09-29-2022 Chronic Other connective tissue disease (1 source) H/O: musculoskeletal disease; Translations: [Personal history of other diseases of the musculoskeletal system and connective tissue] Onset: 09-29-2022 Episodic Other connective tissue disease (17 sources) Fibromyalgia; Translations: [Fibromyalgia] Onset: 09-29-2022 Resolved: 11-10-2022 Episodic Other connective tissue disease (6 sources) Pain in both feet; Translations: [Pain in right foot] Onset: 07-13-2023 07-13-2023 Episodic Other connective tissue disease (1 source) Pain in right foot; Translations: [Bilateral foot pain] Onset: 07-13-2023 Episodic Other connective tissue disease (1 source) Pain in left foot; Translations: [Bilateral foot pain] Onset: 07-13-2023 Episodic Other endocrine disorders (16 sources) Polycystic ovary syndrome; Translations: [Polycystic ovarian syndrome] Onset: 09-29-2022 Chronic Other injuries and conditions due to external causes (1 source) H/O: injury; Translations: [Personal history of other (healed) physical injury and trauma] Onset: 09-29-2022 Episodic Other nervous system disorders (1 source) H/O: EMBEDDER disorder; Translations: [Personal history of other diseases of the nervous system and sense organs] Onset: 09-29-2022 Episodic Other nervous system disorders (15 sources) H/O: migraine 09-29-2022 Episodic Other non-traumatic [...] Chronic Other nutritional; endocrine; and metabolic disorders (15 sources) Insulin resistance 09-29-2022 Chronic Other nutritional; [...] callosities] Onset: 02-18-2023 Episodic Other skin disorders (9 sources) [place] - lesion 02-18-2023 Episodic Other skin disorders (3 sources) Swollen ankle region 06-24-2023 Episodic Residual codes; unclassified (1 source) Past history of procedure; Translations: [Other specified postprocedural states] Onset: 06-24-2023 Episodic Screening and history of mental health and substance abuse codes (17 sources) H/O: psychiatric disorder; Translations: [Personal history of other mental and behavioral disorders] Onset: 09-29-2022 Episodic Substance-related disorders (18 sources) Nicotine dependence; Translations: [Nicotine dependence, unspecified, uncomplicated] Onset: 09-29-2022 Chronic Thyroid disorders (20 sources) Non-toxic uninodular goiter; Translations: [Nontoxic single thyroid nodule] Onset: 05-19-2022 Chronic Unclassified (3 sources) Bilateral talipes equinovarus 06-24-2023 Unclassified (3 sources) History of operative procedure on foot 06-24-2023 Unclassified (1 source) Patient encounter status 07-21-2023 Past or Other Problems Problem Classification Problem [...] unspecified] Onset: 11-10-2022 Resolved: 11-10-2022 11-10-2022 Chronic Nutritional deficiencies (1 source) Vitamin D deficiency; Translations: [Vitamin D deficiency, unspecified] Onset: 11-10-2022 Resolved: 11-10-2022 11-10-2022 Chronic Other aftercare (1 source) senior care (current) use of oral hypoglycemic drugs; Translations: [INSURANCE DEFENSE PARALEGAL USE ORAL HYPOGLYCEMIC DX] Onset: 07-01-2022 Episodic [...] Name Value Interpretation Reference Range Facil ity US Thyroidon 08-21-2023 US Thyroid Exam Date/Time: 08/20/2023 22:48 EST Reason for Exam: E04.2 Report IMPRESSION: Multiple thyroid nodules, unchanged from 10/06/2022. EXAMINATION: US Thyroid HISTORY: Follow-up of thyroid nodules. History of biopsy. TECHNIQUE: Sonography and Doppler imaging of the thyroid was performed. Images were obtained and stored in a permanent archive.\X09\ COMPARISON: 10/06/2022. RESULT: RIGHT LOBE: 5.0 cm x 2.1 cm x 1.6 cm with a volume of 8.8 cm3; heterogeneous echogenicity, increased vascular flow on color Doppler imaging LEFT LOBE: 5.0 cm x 1.5 cm x 1.1 cm with a volume of 4.6 cm3; heterogeneous echogenicity, increased vascular flow on color Doppler imaging ISTHMUS: 0.5 cm. Nodules: 1.6 cm TR 3 nodule within the right lower thyroid, unchanged given difference in measurement technique. 1.0 cm TR 3 nodule right lateral thyroid, unchanged. 1.5 cm TR 3 nodule right mid thyroid, unchanged. 0.9 and 0.8 cm TR 4 nodules left thyroid, unchanged. Recommendations per TI-RADS: Overall stable nodules compared to 10/06/2022. Follow-up in 2 years is recommended for the TR 3 nodules greater than or equal to 1.5 cm in the right thyroid. No follow-up is needed for the subcentimeter TR 4 nodules in the left thyroid. Lymph nodes: No enlarged cervical lymph nodes. Note, ACR TI-RADS is a reporting system for thyroid nodules on ultrasound proposed by the [employer] (ACR) Ordering Provider: Sendy Oquendo FINAL REPORT Dictated: 08/21/2023 2:39 pm Alvin Jones MD. Signed (Electronic Signature): 08/21/2023 2:39 pm Signed by: Alvin Jones MD Transcribed by: JOVANNY Technologist: [place] [facility] Consent for Treatmenton Consent for Treatment [id number] .00TIFF [facility] Physician Orderon 08-20-2023 Physician Order [id number] .00TIFF [facility] CNOVon 08-17-2023 CNOV Office Visit (LOORRM ) DOMINIQUE LLAMAS ([id number]) 1985 F Date Time Provider Department 08/17/23 3:45 PM EVELYNE CARCAMO During your visit today, we recorded the following information about you: Evelyne Carcamo DPM 08/17/2023 3:27 PM Signed Patient Visit for Dominique Llamas 1985 38 year old female Date of Service: August 17, 2023 SUBJECTIVE: Chief Complaint: Patient presents with: Left Foot - Established Patient, Follow Up, Pain /Pain Scales: Verbal (Numeric Rating or Visual Analog Scale) Pain Level: 0 Pain Location: Foot-Left Duration Amount of Time: 1 Duration Units: Months Frequency: Intermittent Intervention/Comfort measure: (cast) Comments: She is here for a 1 month follow up of bilateral club feet. Pain has improved since the last visit. Additional HPI: History of bilateral club foot surgery x 2 - 1983, 86 Pain worse with activity throughout childhood Does have recurrent flare of symptoms LEFT hind foot worse than RIGHT Difficulty walking Now asymptomatic PCP: No primary care provider on file. No past medical history on file. Current Outpatient Medications Medication Sig albuterol HFA (PROVENTIL HFA, VENTOLIN HFA) 90 [...] Take 1 tablet by mouth every afternoon. metFORMIN (GLUCOPHAGE) 500 mg tablet Take 500 mg by mouth two times a day. methylphenidate ER (METADATE ER) 20 mg ER [...] with loss of motion talo calcaneal joint No pain at this time LABS: Most recent labs reviewed LABORATORY STUDIES: No results for input(s): HB , WBC , PLT , WSR , CRP , CCPABG , RF , INR , CREATININE , ALB , PROT , URICACID , HBA1C , VITD25 in the last 58622 hours. X-ray deformity foot and ankle consistent [...] treatment plan. Treatment options discussed at length Fit and dispense tall air CAM walker boot Recommend use with compression stockings If not improved recommend follow up and further work up All questions were answered. Dominique Llamas appeared to be well informed. Greater than 50% of the visit was spent face to face counseling and/or coordinating care for the patient. Evelyne Carcamo DPM Allergies As of Date: 08/17/2023 Noted Allergy Reaction ZIPRASIDONE 11/10/2022 10 - Anaphylaxis Comments: Nima Date Reviewed: 08/17/2023 Reviewed by: Shahram Lee OCCA - Fully Assessed Reason for Visit: Established Patient [175] Follow Up [171] Pain [78] Primary Visit Diagnosis:Club foot of both lower extremities [Q66.89] Other Visit Diagnoses:DJD (degenerative joint disease), ankle and foot, left [M19.072] DJD (degenerative joint disease), ankle and foot, right [M19.071] Pain in both feet [M79.671, M79.672] Prescriptions as of 08/17/2023 - albuterol HFA (PROVENTIL HFA, VENTOLIN HFA) [...] mcg tablet Take 1 tablet by mouth (more content not included)... Normal [facility] TOLU Office Visit (LOORRM ) DOMINIQUE LLAMAS ([id number]) 1985 F Date Time Provider Department 08/17/23 3:00 PM CAST ZACKERY ANDRE During your visit today, we recorded the following information about you: Antonio Moreno Cast Tech 08/17/2023 3:32 PM Signed Patient in today for scheduled appointment. Cast removed. Left leg cleansed with Cavilon. Examined by Dr. Carcamo. Fitted patient with a Small Tall Foam Walker for the left leg. Instructions on application, adjustments and care given. Will f/u as scheduled/prn. Antonio Moreno, CT Allergies As of Date: 08/17/2023 Noted Allergy Reaction ZIPRASIDONE 11/10/2022 10 - Anaphylaxis Comments: Nima Date Reviewed: 08/17/2023 Reviewed by: Shahram Lee OCCA - Fully Assessed Primary Visit Diagnosis:Club foot of both lower extremities [Q66.89] Prescriptions as of 08/17/2023 - albuterol HFA (PROVENTIL HFA, VENTOLIN HFA) [...] every afternoon. Problem List As Of Date 08/17/2023 Noted Resolved Club foot of both lower extremities [Q66.89] 07/13/2023 DJD (degenerative joint disease), ankle and fe*07/13/2023 DJD (degenerative joint disease), ankle and fe*07/13/2023 Pain in both feet [M79.671, M79.672] 07/13/2023 Encounter Status:Closed by ANTONIO MORENO on 08/17/23 [facility] CNOVon 08-03-2023 CNOV Office Visit (ORR ) DOMINIQUE LLAMAS ([id number]) 1985 F Date Time Provider Department 08/03/23 3:30 PM CAST TECH ZOE ANDRE During your visit today, we recorded the following information about you: Antonio Moreno, Georgina Tech 08/03/2023 3:47 PM Signed Ms. Llamas [...] Status:Closed by ANTONIO MORENO on 08/03/23 Normal [facility] ALL PROGESTERONEon 4 PROGESTERONE 23.8 ng/mL . [facility] Comment on above: Follicular phase 0.1 - 0.9 Luteal phase 1.8 - 23.9 Ovulation phase 0.1 - 12.0 First trimester 11.0 - 44.3 Second trimester 25.4 - 83.3 Third trimester 58.7 - 214.0 Postmenopausal 0.0 - 0.1 Performed at: [facility] [place] [id number] Traveling Clerk: Chapin Pulido PhD, Phone: [phone] [facility]Clini c Noteon 07-24-2023 Family [...] Cancer screening: UPPER AND LOWER done in [place] with a UNCLEAR f/u recommended; this patient DOES have family history of colon cancer IN HER MOTHER - LIKELY done in 2020, in a surgery center connected to [facility] Breast cancer screening: START at age 40; this patient DOES have a family history of breast cancer Pap smear: 2022 DEXA: age Labs: Jun 2023 List of Providers: Ortho - Dr. Carcamo - F Setter Automatic Spinning Lathe - Dr. Lovell ENT - Dr. Oquendo - [facility] staff / Chief Complaint confirmed with [...] 36.13 PHYSICAL EXAM Constitutional: Vital signs reviewed; DOMINIQUE [...] Daily, # 30 tab(s), Refills(s) 5, Pharmacy: [facility]/pharmacy #[id number], 155, cm, 07/21/23 8:08:00 EST, [...] counseled o (more content not included)... Normal [facility] Comment on above: Result Comment: Elec tronically Signed By: Clint Ortiz DO\Date and Time Signed: 07/24/23 18:47 EST Thom 07-21-2023 KETTY Office Visit (LOORRM ) FARHAD,DOMINIQEU M ([id number]) 1985 F Date Time Provider Department 07/21/23 3:30 PM CAST TECH ZOE ANDRE During your visit today, we recorded the following information about you: Antonio Moreno, Cast Tech 07/21/2023 3:41 PM Signed Ms. Llamas has been informed that the supervising physician today is Dr. Lynch. I am carrying out the treatment plan of Dr. Carcamo. Patient came in today c/o of Cast being loose. Cast was removed and skin inspected. Skin appeared normal. Cast was reapplied. Patient instructed follow-up with doctor during next scheduled appointment/prn. Antonio Moreno, CT Allergies As of Date: 07/21/2023 Noted Allergy [...] Encounter Status:Closed by ANTONIO MORENO on 07/21/23 Normal [facility] Patient Educationon 07-21-19 Patient Education Mental and Behaviora l Health Attention Deficit Hyperactivity Disorder, Adult Attention deficit [...] primary care provider or a mental health campground caretaker. Your health care provider may use a [...] Behavioral management. You may work with a assistant football coach who is specially trained to help people with ADHD manage and organize activities and function more effectively. Follow these instructions at home: Medicines ? Take mufy-uxb-qkoubzs and prescription medicines only as told by [...] ? Follow th (more content not included)... [facility] DOMINIQUE LLAMAS ([id number]) 1985 F Date Time Provider Department 07/20/23 [...] calling: self Call patient at: on cell [phone] (home) Was an appointment scheduled: No Closing statement: Symptom Call: Thank you for calling [facility], your call is very important. A nurse will call in approximately 2-4 hours during business hours. If this is an emergency, please contact 911. Shahram Delvalle OCCA 07/20/2023 11:23 AM Signed Called patient [...] Never Reviewed Reason for Visit: Patient Request [[id number]] Prescriptions as of 07/20/2023 - albuterol HFA [...] Encounter Status:Closed by SHAHRAM LEE on 07/20/23 [facility] CNOVon 07-13-2023 CNOV Office Visit ([facility] ) DOMINIQUE LLAMAS ([id number]) 1985 F Date Time Provider Department 07/13/23 3:00 PM CAST TECH ZOE THAI During your visit today, we recorded the [...] Status:Closed by ANTONIO MORENO on 07/13/23 Normal [facility] CNOV Office Visit (THAI ) DOMINIQUE LLAMAS ([id number]) 1985 F Date Time Provider Department 07/13/23 [...] , HBA1C , VITD25 in the last 08704 hours. X-ray deformity foot and ankle consistent [...] proceed wit (more content not included)... Normal [facility] XR ANKLE 3V AP/LAT/OBL BILon 07-13-2023 XR ANKLE 3V AP/LAT/OBL REENA * * *Final Report* * * DATE OF EXAM: Jul 13 2023 2:17PM NAPOLEONX 5553 - XR ANKLE 3V AP/LAT/OBL REENA [...] described. Findings suggesting chronic left Achilles tendinosis. Local Owner Operator Truck Driver: ALEXI Transcribe Date/Time: Jul 13 2023 2:49P Dictated by : HECTOR KRUSE MD This examination was interpreted and the report reviewed and electronically signed by: SELIN RIGGS MD on Jul 13 2023 5:42PM EST [id number] N Normal [facility] XR FOOT 3V AP/LAT/OBL BILon 07-13-2023 XR [...] described. Findings suggesting chronic left Achilles tendinosis. Local Owner Operator Truck Driver: [employer] Transcribe Date/Time: Jul 13 2023 2:49P Dictated by : HECTOR KRUSE MD This examination was interpreted and the report reviewed and electronically signed by: SELIN RIGGS MD on Jul 13 2023 5:42PM EST [id number] Normal [facility] Physician Referralon 024 Physician Referral [id number]# 1.00TIFF Normal [facility] Family Medicine Office/Clini c Noteon 06-27-2023 Family Medicine Office/Clinic Note Chief Complaint Ankle swelling HPI Staff Patient here to F/U on Swollen ankle. X Rays done on 06/07/23 In [facility] on 06/07/23 Symptoms started on 31 of May after doing a lot of house cleaning. has tried elevation and heat at night and tylenol. 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 Normal [facility] Comment on above: Result Comment: [...] Yobani Black MD Transcribed by: JOVANNY Technologist: ORG Technical Comments Radiation Dose: Ka,r in mGy = . DAP = . Normal [facility] CHEMISTRYOrdered By: SYSTEM SYSTEM on 06-25-2023 Free T4 [Mass/Vol] 1.19 ng/dL Normal 0.58 - 1. 64 ng/dL Remisol Chem TSH Qn 0.14 m[IU]/L Low 0.34 - 5.60 mcIU/mL Remisol Chem Consent for Treatmenton 06-15 Consent for Treatment [id number]#1 .00TIFF Normal [facility] Free T4on 06-25-2023 Free T4 [Mass/Vol] 1.19 ng/dL Normal 0.58-1.64 [facility] Comment on above: Order Comment: Free T4 added by Discern Rule due to a TSH result of <0.34 or >5.60. Performed By: #### 1 [id number], [id number] #### [facility] [address] [place] [address] Patient Educationon 06-25-19 Patient Education Physical Medicine an d Rehabilitation [...] provider. Document Revised: 04/03/2021 Document Reviewed: 04/03/2021 [employer] Patient Education ? 2022 [employer] Normal [facility] TSH With T4fr Reflexon 06-25 TSH Qn 0.14 m[IU]/L Low 0.34-5.60 [facility] Comment on above: Performed By: #### 1 [id number], [id number] #### [facility] [address] [place] [address] Ambulatory Visit Summaryon 08-08-2022 Ambulatory Visit Summary DOMINIQUE LLAMAS :1985 [...] AM EST With: Clint Ortiz DO Where: [facility] [place] Normal [address] [place] [address]-\.br\ Medications\.br\ What How Much When Why Instructions\.br [...] currently receiving treatment for.\.br\ ADHD\.br\ Anxiety\.br\ Asthma\.br\ Genes[place] of foot\.br\ Fibromyalgia\.br \ History of migraine\.br\ [...] for choosing us for your care.\.br\ \.br\ [facility] XR Ankle 3+ Views Lefton [...] mGy = . DAP = . Normal [facility] Medication Consenton 023 Medication Consent [id number]#1 .00TIFF Normal [facility] Consent for Flu Vaccineon Consent for Flu Vaccine [id number]#1 .00TIFF Normal [facility] Family Medicine Office/Clini c Noteon 04-21-2023 [...] 2020 ultrasound recommend periodic ultrasound monitoring at [facility] Follow-up 6 months February 18, 2023-PCP ADHD [...] BID, # 60 tab(s), Refills(s) 5, Pharmacy: [facility]/pharmacy #[id number], 158, cm, 04/21/23 8:07:00 EST, Height/Length Dosing, 86, kg, 04/21/23 8:07:00 EST, Weight Dosing 3. Thyroid nodule (E04.1: Nontoxic single thyroid nodule) Chronic Stable Established with ENT Given the lack of change compared to 2020 US, OK for patient to monitor at [facility] (for her convenience) f/u 6 months with [...] List/Past Medical History Ongoing ADHD Anxiety Asthma [place] of foot Fibromyalgia History of migraine History of posttraumatic stress disorder (PTSD) Hypokalemia Hypothyroidism Insulin resistance Mild recurrent major depression PCOS (polycystic ovarian syndrome) Smoker Thyroid nodule Historical No qualifying data Procedure/Surgical History Carpal tunnel, delivery only;, Colonoscopy, Dilation and curettage, diagnostic and/or therapeutic (nonobstetrical), Gallbladder operation. Medication (more content not included)... Normal [facility] Comment on above: Result Comment: Elec tronically Signed By: Clint Ortiz DO\Date and Time Signed: 04/21/23 08:42 EST T3 Totalon 04-21-2023 T3 [Mass/Vol] 112 ng/dL Invalid Interpretation Code 71-180 [facility] Comment on above: Result Comment: Perf ormed at: [facility] [address] [id number] PhD Tess Samson Performed By: #### 2 685028, 26421208, 9535116, 6988758, 30055883, 5320740 ####[facility] [address] [place] [address] BMPon 04-20-2023 Anion gap [Moles/Vol] 11 mmol/L Normal 6-16 [facility] Comment on above: Performed By: #### 2 194421, 37737766, 7072784, 2221130, 91983989, 6890678 ####[facility] [address] [place] [address] Calcium [Mass/Vol] 9.5 mg/dL Normal 8.9-11.1 [facility] Comment on above: Performed By: #### 2 734911, 58585053, 8235619, 3452444, 19122048, 4779027 ####[facility] [address] [facility] [address] Chloride [Moles/Vol] 105 mmol/L Normal 101-111 [facility] Comment on above: Performed By: #### 2 982179, 23699761, 1377663, 7698414, 97689475, 1104293 ####[facility] [address] [place] [address] CO2 [Moles/Vol] 26 mmol/L Normal 21-31 [facility] Comment on above: Performed By: #### 2 720136, 90490834, 8859913, 9160906, 03747086, 1768739 ####[facility] [address] [place] [address] Creatinine [Mass/Vol] 0.9 mg/dL Normal 0.5-1.3 [facility] Comment on above: Performed By: #### 2 894985, 06836372, 2304418, 6310736, 59891078, 3351449 ####[facility] [address] [place] [address] Glucose [Mass/Vol] 90 mg/dL Normal 55-199 [facility] Comment on above: Result Comment: If t his glucose result represents a fasting glucose, interpretation should refer to the following reference range: 55-99 mg/dL Performed By: #### 2 900311, 03343945, 8297096, 9296961, 93141660, 2005578 ####[facility] [address] [place] [address] Potassium [Moles/Vol] 4.2 mmol/L Normal 3.5-5.3 [facility] Comment on above: Performed By: #### 2 263875, 88966332, 9575040, 8389583, 57546153, 4331005 ####[facility] [address] [place] [address] Sodium [Moles/Vol] 138 mmol/L Normal 135-145 [facility] Comment on above: Performed By: #### 2 060552, 15647185, 1672329, 8818395, 30197081, 3073477 ####[facility] [address] [place] [address] Urea nitrogen [Mass/Vol] 9 mg/dL Normal 5-21 [facility] Comment on above: Performed By: #### 2 383398, 46887886, 5998135, 2064461, 35872937, 0825266 ####[facility] [address] [place] [address] Urea nitrogen/Creatinine [Mass ratio] 10 No Units Normal 10-20 [facility] Comment on above: Performed By: #### 2 332183, 72572118, 2591903, 4627038, 27563637, 4479856 ####[facility] [address] [place] [address] CHEMISTRYOrdered By: SYSTEM SYSTEM on 04-20-2023 Anion [...] ng/dL Normal 0.58 - 1. 64 ng/dL FT Remisol GFR/1.73 sq M.predicted among non-blacks MDRD (S/P/Bld) [Vol rate/Area] 84 mL/min/1.73 m2 Normal >=59mL/min/1.73 m2 [facility] Chem S Comment on above: Interpretive Data: [...] 9 mg/dL Normal 5 - 21 mg/dL FT Remisol Urea nitrogen/Creatinine [Mass ratio] 10 mg/mg Normal 10 - 20 FT Remisol Consent for Treatmenton Consent for Treatment [id number]#1 .00TIFF Normal [facility] Free T4on 04-20-2023 Free T4 [Mass/Vol] 1.27 ng/dL Normal 0.58-1.64 [facility] Comment on above: Performed By: #### 2 894555, 75590625, 5938232, 8330643, 08110728, 9842710 ####[facility] [address] [place] [address] Magnesiumon 04-20-2023 Magnesium [Mass/Vol] 1.8 mg/dL Normal 1.3-2.4 [facility] Comment on above: Performed By: #### 2 966791, 50575623, 6900248, 1546989, 36990553, 0068484 ####[facility] [address] [place] [address] TSHon 04-20-2023 TSH Qn 0.02 m[IU]/L Low 0.34-5.60 [facility] Comment on above: Performed By: #### 2 381225, 92132421, 8638752, 3044601, 25368589, 8472643 ####[facility] [address] [place] [address] eGFRon 04-20-2023 GFR/1.73 sq M.predicted among non-blacks MDRD (S/P/Bld) [Vol rate/Area] 84 mL/min/1.73 m2 Normal >=59 [facility] Comment on above: Order Comment: Order added by Discern Expert. Result Comment: [employer] Developer erica kidney disease could be indicated at eGFR's of less than 60 mL/min/1.73m2. Kidney failure is indicated at less than 15 mL/min/1.73m2. 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 SW will remain available. Normal [facility] Consultation Noteon 02-21-20 Consultation Note [id number]#1 .00CD:127 Normal [facility] Family Medicine Office/Clini c Noteon [...] BID, # 60 tab(s), Refills(s) 5, Pharmacy: [facility]/pharmacy #[id number], 158, cm, 02/18/23 10:07:00 EDT, Height/Length Dosing, [...] reactive airway disease f/u 1 month 5. 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) new to me discussed rationale for self-care vs podiatry referral deferred f/u PRN Adult BMI 34.0-34.9 kg/sq m (Z68.34: Body mass index [BMI] 34.0-34.9, adult) Ordered: Medicare Annual Visit G0438 Orders: methylphenidate, 20 mg = 1 tab(s), Oral, Daily, # 30 tab(s), Refills(s) 0, Pharmacy: [facility]/pharmacy #[id number], 158, cm, 02/18/23 10:07:00 EDT, Height/Length [...] 4004F Tobacco Use Cessation Intermediate 3-10 Minutes 22717 Total time spent TODAY preparing the chart, face to face with the patient and family and time spent documenting, reviewing, and ordering tests was 30 mins. 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 Normal [facility] Comment on above: Result Comment: Elec tronically Signed By: Clint Ortiz DO\Date and Time Signed: 02/19/23 16:19 EDT Family [...] of clutter to prevent tripping and/or falling. [place] Advance Directives reviewed, declines additional info. Patient [...] the patient, fa (more content not included)... [facility] Comment on above: Result Comment: Elec tronically [...] Ortiz DO [facility] (permanent handicap placard) albuterol (Albuterol (Eqv-ProAir [...] Follow-Up Appointments Thursday 11:00 AM EDT Where: [facility] [place] Normal [facility] Ambulatory Visit Summary DOMINIQUE LLAMAS :1985 [...] Ortiz DO This Is Your Medications List [facility] [place]cription (permanent handicap placard) albuterol (Albuterol (Eqv-ProAir [...] Follow-Up Appointments Thursday 11:00 AM EDT Where: [facility] [place] Normal [facility] Patient Educationon 02-19-20 23 Patient [facility]ressive [facility], Adult Major depressive disorder [...] may include: ? Your personality traits. ? [place] or conditioned behaviors or thoughts or feelings [...] In the (more content not included)... Normal [facility] Screenson 02-18-2023 Screens [id number]#1. 00CD:127 Normal [facility] Family Medicine Office/Clini c Noteon [...] moving ever since youngest went back to [place] - he's turning 16 soon TSH suppressed/ [...] Daily, # 30 tab(s), Refills(s) 5, Pharmacy: [facility]/pharmacy #[id number], 158, cm, 01/07/23 10:49:00 EDT, [...] for this handicap placard provided today Ordered: [facility] Prescription, permanent handicap placard, See Instructions, 1 EA, 11, for chronic medical condition, Supply, 158, cm, 01/07/23 10:49:00 EDT, Height/Length Dosing, 86.3, kg, 01/07/23 10:49:00 EDT, Weight Dosing Multinodular thyroid (E04.2: Nontoxic multinodular goiter) see #2 Ordered: levothyroxine, 88 mcg = 1 tab(s), Oral, Daily, # 30 tab(s), Refills(s) 5, Pharmacy: [facility]/pharmacy #[id number], 158, cm, 01/07/23 10:49:00 EDT, Height/Length Dosing, 86.3, kg, 01/07/23 10:49:00 EDT, Weight Dosing Free T4 T3 Total Thyroid Stimulating Hormone Orders: methylphenidate, 20 mg = 1 tab(s), Oral, Daily, # 30 tab(s), Refills(s) 0, Pharmacy: [facility]/pharmacy #[id number], 158, cm, 01/07/23 10:49:00 EDT, Height/Length Dosing, 8 (more content not included)... Normal [facility] Comment on above: Result Comment: Elec tronically Signed By: Clint Ortiz DO.br\Date and Time Signed: 01/08/23 11:06 EDT Family [...] Daily, # 30 tab(s), Refills(s) 0, Pharmacy: [facility]/pharmacy #[id number], 158.3, cm, 12/03/22 11:34:00 EDT, [...] skin: [place] (more content not included)... Normal [facility] Comment on above: Result Comment: Elec tronically Signed By: Clint Ortiz DO\Date and Time Signed: 12/04/22 12:53 EDT Advance Beneficiary Notifica tionson 12-03-2022 Advance Beneficiary Notifications [id number]# 1.00CD:127 Normal [facility] Ambulatory Visit Summaryon 0 12-03-2022 [...] By Mouth Every day ADHD Pickup at [facility]/pharmacy #8401 Unchanged albuterol (Albuterol (Eqv-ProAir HFA) 90 mcg/ [...] physician if questions or concerns Pharmacy Information [facility]/pharmacy #[id number]: [address] [place], [place] [phone] What How Much When Why Comments Stop [...] (polycystic ovarian syndrome) Smoker Thyroid nodule Normal [facility] CHEMISTRYOrdered By: SYSTEM SYSTEM on [...] ng/dL Normal 0.58 - 1. 64 ng/dL FT Remisol GFR/1.73 sq M.predicted among non-blacks MDRD (S/P/Bld) [Vol rate/Area] 97 mL/min/1.73 m2 Normal >=59mL/min/1.73 m2 FT Chem S Globulin (S) [Mass/Vol] 2.9 g/dL Normal 1.4 - 4.0 gm/dL FT Remisol Glucose [Mass/Vol] 91 mg/dL Normal 55 - 199 mg/dL FT Remisol Potassium [Moles/Vol] 3.4 mmol/L Low 3.5 - 5.3 mmol/L FT Remisol Protein [Mass/Vol] 7.3 g/dL Normal 6.0 - 7.8 gm/dL [facility] Remisol Sodium [Moles/Vol] 138 mmol/L Normal 135 - 145 mmol/L FT Remisol Triglyceride [Mass/Vol] 127 mg/dL Normal <=149mg/dL FT Remisol TSH Qn 0.03 m[IU]/L Low 0.34 - 5.60 mcIU/mL FT Remisol Urea nitrogen [Mass/Vol] 7 mg/dL Normal 5 - 21 mg/dL FT Remisol Urea nitrogen/Creatinine [Mass ratio] 9 mg/mg Low 10 - 20 [facility] Remisol CMPon 12-03-2022 Albumin [Mass/Vol] 4.4 g/dL Normal 3.3-5.0 [facility] Comment on above: Performed By: #### 2 880062, 0451108, 71622384, 0175054, 40590605 #### [facility] [address] [place] [address] Albumin/Globulin (S) [Mass conc ratio] 1.5 Normal 1.1-2.2 [facility] Comment on above: Performed By: #### 2 603380, 3070385, 32105400, 4557060, 91008121 #### [facility] [address] [place] [address] ALP [Catalytic activity/Vol] 48 Int._Unit/L Normal 21-98 [facility] Comment on above: Performed By: #### 2 890498, 7273430, 06558565, 9547013, 72449543 #### [facility] [address] [place] [address] ALT No additional P-5'-P [Catalytic activity/Vol] 28 Int._Unit/L Normal 6-46 [facility] Comment on above: Performed By: #### 2 482183, 8891125, 07752429, 6733412, 60567687 #### [facility] [address] [place] [address] Anion gap [Moles/Vol] 9 mmol/L Normal 6-16 [facility] Comment on above: Performed By: #### 2 025476, 5746913, 10291972, 6010269, 19983838 #### [facility] [address] [place] [address] AST [Catalytic activity/Vol] 20 Int._Unit/L Normal 5-43 [facility] Comment on above: Performed By: #### 2 102794, 6955980, 09209443, 2493821, 61640968 #### [facility] [address] [place] [address] Bilirubin [Mass/Vol] 0.8 mg/dL Normal 0.0-1.1 [facility] Comment on above: Performed By: #### 2 063785, 2109608, 07742136, 9109400, 85255156 #### [facility] [address] [place] [address] Calcium [Mass/Vol] 9.1 mg/dL Normal 8.9-11.1 [facility] Comment on above: Performed By: #### 2 716725, 7038248, 38280093, 4547486, 24601550 #### [facility] [address] [place] [address] Chloride [Moles/Vol] 108 mmol/L Normal 101-111 [facility] Comment on above: Performed By: #### 2 116373, 6104332, 20057360, 2047923, 69973914 #### [facility] [address] [place] [address] CO2 [Moles/Vol] 24 mmol/L Normal 21-31 [facility] Comment on above: Performed By: #### 2 016194, 0608147, 42206635, 2549721, 80372282 #### [facility] [address] [place] [address] Creatinine [Mass/Vol] 0.8 mg/dL Normal 0.5-1.3 [facility] Comment on above: Performed By: #### 2 832191, 5037398, 35694163, 7556591, 97192626 #### [facility] [address] [place] [address] Globulin (S) [Mass/Vol] 2.9 g/dL Normal 1.4-4.0 [facility] Comment on above: Performed By: #### 2 564254, 2922886, 25623640, 6642341, 11665898 #### [facility] [address] [place] [address] Glucose [Mass/Vol] 91 mg/dL Normal 55-199 [facility] Comment on above: Result Comment: If t his glucose result represents a fasting glucose, interpretation should refer to the following reference range: 55-99 mg/dL Performed By: #### 2 717453, 5752155, 68925135, 6185622, 92328577 #### [facility] [address] [place] [address] Potassium [Moles/Vol] 3.4 mmol/L Low 3.5-5.3 [facility] Comment on above: Performed By: #### 2 201692, 3500213, 15864263, 5787596, 47639038 #### [facility] [address] [place] [address] Protein [Mass/Vol] 7.3 g/dL Normal 6.0-7.8 [facility] Comment on above: Performed By: #### 2 072101, 7411482, 53589994, 8187997, 48112625 #### [facility] [address] [place] [address] Sodium [Moles/Vol] 138 mmol/L Normal 135-145 [facility] Comment on above: Performed By: #### 2 435976, 2746934, 50007550, 7917147, 41661717 #### [facility] [address] [place] [address] Urea nitrogen [Mass/Vol] 7 mg/dL Normal 5-21 [facility] Comment on above: Performed By: #### 2 504081, 8648861, 77655173, 0269068, 34227106 #### [facility] [address] [place] [address] Urea nitrogen/Creatinine [Mass ratio] 9 No Units Low 10-20 [facility] Comment on above: Performed By: #### 2 963881, 7673597, 47286514, 3587434, 85258583 #### [facility] [address] [place] [address] Consent for Treatmenton 11-14 Consent for Treatment [id number] .00CD:127 Normal [facility] Free T4on 12-03-2022 Free T4 [Mass/Vol] 1.43 ng/dL Normal 0.58-1.64 [facility] Comment on above: Order Comment: Free T4 added by Discern Rule due to a TSH result of <0.34 or >5.60. Performed By: #### 2 630252, 8485808, 00764954, 2767299, 80932311 ####[facility] [address] [place] [address] Lipid Panelon 12-03-2022 Cholesterol [Mass/Vol] 170 mg/dL Normal 120-200 [facility] Comment on above: Performed By: #### 2 695957, 7161211, 31975618, 2222074, 48067452 ####[facility] [address] [place] [address] Cholesterol in HDL [Mass/Vol] 44 mg/dL Invalid Interpretation Code [facility] Comment on above: Result Comment: HDL > or equal to 60 mg/dL: Low cardiovascular risk HDL < 40 mg/dL : High cardiovascular risk Performed By: #### 2 541440, 9887730, 74602118, 7251761, 41870797 ####[facility] [address] [place] [address] Cholesterol in LDL [Mass/Vol] 108 mg/dL Normal <=129 [facility] Comment on above: Performed By: #### 2 539652, 7357183, 86327398, 7722289, 16216800 ####[facility] [address] [place] [address] Cholesterol in VLDL [Mass/Vol] 25 mg/dL Normal 7-40 [facility] Comment on above: Performed By: #### 2 094819, 9645550, 59645124, 4671439, 37265053 ####[facility] [address] [place] [address] Triglyceride [Mass/Vol] 127 mg/dL Normal <=149 [facility] Comment on above: Performed By: #### 2 589632, 1451683, 18168405, 0895752, 23432221 ####[facility] [address] [place] [address] TSH With T4fr Reflexon 12-03 TSH Qn 0.03 m[IU]/L Low 0.34-5.60 [facility] Comment on above: Performed By: #### 2 758489, 7996252, 62135060, 7996007, 21559351 ####[facility] [address] [place] [address] eGFRon 12-03-2022 GFR/1.73 sq M.predicted among non-blacks MDRD (S/P/Bld) [Vol rate/Area] 97 mL/min/1.73 m2 Normal >=59 [facility] Comment on above: Order Comment: Order added by Discern Expert. Result Comment: [employer] Developer erica kidney disease could be indicated at eGFR's of less than 60 mL/min/1.73m2. Kidney failure is indicated at less than 15 mL/min/1.73m2. Performed By: #### 2 063596, 3969927, 51783602, 4682113, 26923199 ####[facility] [address] [place] [address] Consultation Noteon 11-22-19 Consultation Note [id number] .00CD:127 Normal [facility] Pulmonary Function Studieson 10-29-2022 Pulmonary [...] READ BY: Meliza Vogel M.D. Dictated: 10/28/2022 [id number] Transcribed: 10/28/2022 cc:Clint Ortiz D.O. Normal [facility] Comment on above: Result Comment: Elec tronically Signed By: Jaspreet JOSEPH, Meliza Neal\.br\Date and Time Signed: 10/29/22 09:32 EDT Consent for Treatmenton 10-13 Consent for Treatment [id number] .00CD:127 Normal [facility] Methacholine Challenge Testo n 10-27-2022 Methacholine Challenge Test [id number]#1 .00CD:127 Normal [facility] PROGESTERONEon 10-17-2022 Progesterone 30.4 ng/mL Normal [facility] Comment on above: Result Comment: Foll icular phase 0.1 - 0.9 Luteal phase 1.8 - 23.9 Ovulation phase 0.1 - 12.0 First trimester 11.0 - 44.3 Second trimester 25.4 - 83.3 Third trimester 58.7 - 214.0 Postmenopausal 0.0 - 0.1 Performed By: #### P DAWNA #### [facility] [address] [address] [address] Cecy Hernandez Pulmonary Function Studieson 10-11-2022 [...] challenge test. READ BY: Felipe Johnson M.D. Dictated: 10/08/2022 [id number] Transcribed: 10/08/2022 cc:Clint Ortiz D.O. [facility] Comment on above: Result Comment: Elec tronically Signed By: Alex JOSEPH, Felipe Valles\.br\Date and Time Signed: 10/11/22 12:51 EDT Coding Summary.on 10-09-2022 Coding Summary. CD:[id number] W w+PGhlYWQ+IF2HBELeN61 mlDFolW4xJ5TXQVeIYgwu BGZUKLvOGsGepsMgPX3kd XNjZXJu IC8+QI5gGXGuYwjgyRIvr 2Z5yRZ2M29myf1xWMnoiG T8YHIvZzEzpvquw6bmjJl 6IDcuNmluOyBt MDZycJ56AZP0hO84Xb55b ELvyTIpl5vfyVd9LtRaSI BpCYT1vAxmXIqlk3WtUPE tD52jmZSyv4C6 WMJxwYuaxAPrAtOgoCM7d H0uZNiyaqott5gdaxgiBx u0bx17gMLym0E6cRT8U5W agvY9OAPkkOFp XxaayNQZsC4ugrtfe9cbt iymPcVqRLRvSTz7QAe1TU VmjUivOgDrST65WOM2UOX zuxBjM1KqHNUx jRyiHiG8c7P4Ss9ZO5VAX lgpU1INPIYPFPqohGQ+PC 20tt25A9ZiYlviOtz2CEQ pDXG0lIT9wV8l TMTtICkhz1X9rTX6J8Pcj qJdff7ri9ioCYKeVQvgE2 6qtXVzz0X0YHMbtVI0TPA sgTgxIeJgoE22 Oyc+ERChlGptq2DxZyoik 5nez7aauYd6CvgqNVWxfp HexCjzCDR8k2EiMt4tLQX nbFP4sTE7jP2f QmEyTaM3CSjxY620LoLds INoJolfH90mT2DivDE+PH QqCap2OXUbqSixWJ8tU8M hZGRpbmctbGVm sEtdZJ5zXMCaghmxJCDnq B9iTQBsP5x0KeNrEpV9DL xnJ6NdVWRcurbtHt01bH0 gHxGkCuM2VMfs B0MqljS3VJZbaETiLSpgK YT4N04ee8Y2FJZvEMPsMG A0tSQ1hV0kdNwydvtjuBU mdDsgdmVydGlj EYxqCDlxA131GBVphIvvB kNvZGluZyBEYXRlOiAgMD QvMjcvMjAyMzwvdGQ+PHR zLIG8lFjgINUw wHVnVWzbFg4jeCxcmBgdC U0hJGZndadaBHPggX2oWI NloWSbgMjoVI9hICLqwwi ds004NvOqAST6 YLDoqZLvF2LokX4zXkEpO YMeXNUnO0OzdJEpIXxvT8 57SUylZdI1OKAybzGnL8M sLWFsaWduOiB0 p5T2Yl7Uj3BkcdepT0Otm QBvFpCjAjqjPHy3H8JhJs wvdHI+EV49LEOqRG72TWa 3NFW6cGcyWHqd UUUjB2GrlL3sGmTfMXYtE GRkOyc+PHRhYmxlIHdpZH RoPScxMDAlJyBzdHlsZT0 wUf8dOAOmLBAg aJcntAKnUvKkb5pqBVNqG CknEK9oiUwqK9BziFM9JL Wnx5g2Gm91T76fK4QvzCU +XZDzwRP9dVN2 dU1cNuTeBlX5QNwjM347E nAwfODwItyvc2hra8swlF g5PsZ8HYXuodZdtNjgSKM 2r0KnEi32B77y IHdpZHRoPSIxNSUiIHZhb Hrixd0ltR3wOo1+PGNvbC D3iZH6zP0oSiQsXyE6LBx lB331NtEmdGWq Tyecd5hgp4jpmEc0GmYkV YDhocRchPmmJJI1n1ZuYn 52L6KdaYcaq9QhNxs1os1 9nIQno6X5sQP0 C9RiITRakrnwkNQjuNdzH F7yMDJkqtliSDRjxX7bXC HhP1k7QgQiLzG1MTxqA8F zqoA4UYRphUWx RYMsyKIMyG4kpvnkm1saa qhmOgRpWUMkTEi6LKn1KX SeiDsbPwVcGBS7LzD7QSG 9bLQjzB0cxEti ihoovE5uRou+ZML3nAFpt CXKIE0gZuceyZA+PHRkIH M2sYcaLLiwTQFilJ6kGFQ tC4h6YoBgCuH9 AImrQ4LuidN8YFSbzDWaX NNziOYSyH3jblrou2ncfg bzSjJdTXXvYAk4KIr4ZQA saWduOiBsZWZ0 OlI7LHQ6jEEcgY0etNbgm sytmG2wVzw+QmlydGggRG I0FMm0J8LoWyl0EBQxjTi hSF0ynMJpBOyk Mu2plJvkhRsdVK0bAPUhy hoki327XwKgt0ipBSIvbR TaHSzzOWJ4N40ly0W1KCE sHTXgTXC8wQF0 sB9xuJduhkqfqKHokUphy sPdfDazCObjFHxaA237UO KxfXunEuHdEPo7E1TiHol 4TQSydZicKC6x sJRkILhhYt3zoRxyxIcqL E7kEZDnwfyap710VcHez1 dpIWPouEXuUTkqRGI9U35 px5Q6DLBwWJCw ODE4mHV7wJ6rnOtuemglm GVmdDsgdmVydGljYWwtYW cdT578TBEmuMyhYfGqoXr 7T7YtXqu5OIQs iEedLS0ayCIwRIjuPw6et ZlbdQfkYK1xQBKrtsbyb8 26OrYpy0jaFRMapUBsHPo zGYY8Z46fr4T6 HJQpLVZeCVU9hPF1nL3fr GlnbjogbGVmdDsgdmVydG hqUQmhXTxtG539PEYnyTk nPlBhdGllbnQg MDfvYWy9H8CmNwxziOY+P J82KYDwDF12uHRwiAPcv4 pilNf6KgXaIFXzOHA6wZo yFDaxi4TdYKTg V63xxNHfc3Q2QOJqgShga CUzZdZttQX4vQ9oHWkgsc ebx1ilcpvgIvwyp7vkvq0 8iB55S96zMXsj ZHRoPSIzMCUiIHZhbGlnb x2giS4yAs8+XDJxfFD7lP M4aA8oIFXpMcT9IWypC63 9InRvcCIvPjxj s3boq5ccdCv5PfR7SUXlw dTtzJudXQX9a3ShMz51L6 9sIHdpZHRoPSIyMCUiIHZ odNdlpu7edD6d Ii8+FUGtuKZ3hHJ3zJ1fH bAaCnH9HVdhT138XaMxhH OdEofoS99gR8RsmYP+PHR lLod1HVFzyUie SD9nhSCpKUeoTx7nVXJ1E rUaFeHfKDshY7BvVGCequ dgiccjvNY7AFNsUIEyhF3 0Bc8dqKlaRLBu uCSHeD1fnodkc2msfmllY rRaAPOgYEf8JAq4RGOkfO rkGgBbXIP7KwZ1WCY9mCL ckC1cqJhiydwn uS8eD5IhEXVdoyknOu42x I3dBwDuQvS9OKqwDbv+UE SXCj2IEBxfM0lSB01WOE4 2T4EoZix3OYDi vJfmWW3ejTXfKJgfIx8yi YkfkYtcGM3jHCJjapfzJS HdmT8oZHXfgHBrmOvqXD1 kJRPpqdiee770 JvUlKNV6BZOjiILgQ0Nyw F2tVdQpCKYlVBZyW3QlwM NxQWikV825MXjgRfW5LTL bsoBqD1HzXPUx iSouUnD8o1B3Wk4yIB9dO l2xAYn6SB99KF55nLXjy1 S8lUK3P3GmVXXhibysvxp kqDP6HEPuSRDc vR23jKXzKEwvKi2cc6A8k 200CPNcFOGnzZ98Jk3ffM xpVXRdnLZKaY0utzatz8c vcjogIzAwMDAw MVy0WHv7QFDfhPzeSqBjN AV6MkO0KSX4bTAdkY3gaJ cqrefltL9rSoz+MzcgWWV tjjE5J6XbIzx0 QXDhbHqsFV3tvBCfHBneR e1irKqbaMofJA9nAEWpjb rpLHJaqG3gLVHpiMOyvIj kHK2aJYAlzmxu n369YnSwFQL4ZFMyrBYaH 9YkoJ7uQxBdBWUsVBUrA0 WjqTJkVEtnS321UFklHzH 4TEIwipKlB4Ha ZMYbdOonElE4n5T8Np6LI E6yrUW1W5CuHsd1TROryF nxNG9yoSZxXUiyYc6nuRe pwEygBO4cOLQa pyccZYAaaT7tUVYgdQDnx CppIR1pDXXuojmwy397Ni PzNSG0RVWdlGTzI3TcmT3 yOiAjMDAwMDAw Q0SliXSiQMbaX576MBvnJ yC5YWOosrQpC6WzMOVojF ejElW1e8G9Kz8UaYZyIRK nFP53ZH58BW91 N7AdZcyrgHIlpCH+PHRhY mxlIHdpZHRoPScxMDAlJy ArrXctBV1zBy7kZQUwRJM vbGxhcHNlOiBj u2ieLZAsPPouAJ5tjIbtP 3HfxGG7ZJOtg0s4Fy63F8 5nL0ZhtPG+WQPhcBO6gYD 7vB6iYeKkRpY7 LVkfJ407ZaKrpUYfIglms 5oec8rlvTr7NoSjBPRhdk UlsVpaVWN9u0LuCq79B74 sIHdpZHRoPSIy OQBpDZHbzKskhq5wnH2uH i8+YPYcyFT2pUK5aV3pTx EgEdT3WDlhL934NkWsiIW uGhvzW33fG8Va dXA+XZLkIrr7GGJlyAdaF Z3ecJAuUKsgTq2iGCD6Tx LmJzBhIOuvB8PiPJNipcm wdccklLA4PMZs GMEltZ85Ne3zyBtqCd6vL TNdVGP5HONbfKAgR1ApoV 5wDtLvLCHcPENcG7DcgDL tDJesR765HAxt LtP4VWBvplTiC7WxGEGpa UpfErC3m1S5Yb9PkIkapY PrVE3pXcOuWHx0G9XbWsu 3YQYmeUacFQ4s iXToHWmyBf7aaFmthXwjM Z7fPPZfxkope295FsGdb1 foWMTvkVEmNLoqMVY4Y12 mq3O2FDEpSGAi JHP5aGM8gP8gpYfuoimyi GVmdDsgdmVydGljYWwtYW lqP867VPRgoJikYwQTHaz 2J9OiMqa0WUPa qJulCU0loJWxLGrvKb6sz UcexHjpYF8jGVCkukzmi4 52VfFhv5hvDUPnaFHuYEe jNEW1Q43qp0J1 XXHiUBFbNPI8dRJ9xO0ms GlnbjogbGVmdDsgdmVydG sqIBqrAThmC961BYIzvXk fGv1RRcn6Y4Se Qmz9GPGcsIpwEN8ucAXaY XfnVf3reZaowNkqTA6sIZ Iasnfbd771VkEhc5cuRSI wcHQgVGltZXM7 U30ir3C4GKRrJSNmLKS1m CW9vI3xpCjysxtlbHTvqK eyxnGmoUcaAMrxGCtvV55 6IHRvcDsnPlBh eWVyOjwvdGQ+QA66np25F 9KyGcltXdk6EFJqPGJ1hC V0pU1cADBhEHqqx1L8mTL 1Z9NegpFogh8y w1nyHMDn (more content not included)... Normal [facility] US Thyroidon 10-07-2022 US Thyroid [...] MD Transcribed by: JOVANNY Technologist: DUSTIN Normal [facility] Consent for Treatmenton 09-14 Consent for Treatment [id number]#1 .00CD:127 [facility] Pulmonary Function Testson 0 10-06-2022 Pulmonary Function Tests [id number]#1 .00CD:127 [facility] Interdisciplinary Note - Res piratoryon 10-03-2022 Interdisciplinary [...] _ Patient told to enter through the [facility] entrance: _ Patient told to enter through the Emergency Room entrance: _ Normal [facility] Physician Referralon 023 Physician Referral [id number] #1.00CD:127 Normal [facility] Ambulatory Visit Summaryon 0 09-29-2022 Ambulatory Visit Summary FARHAD, DOMINIQUE M :1985 Visit Date:09/29/2022 Ambulatory Visit Instructions Your [...] Will Contact You Regarding These Appointments\.br \ [facility] External Ambulatory Referral, ENT, previous testing performed at [facility], 09/29/22 9:46:00 EDT, Thyroid nodule\.br\ [...] physician if questions or concerns \.br\ Allergies\.br\ [place] (Anaphylaxis)\.b r\ Problems\.br\ Ongoing - Any problem that you are currently receiving treatment for.\.br\ ADHD\.br\ Anxiety\.br\ Asthma\.br\ Fibromyalgia\.br \ History of migraine\.br\ History of posttraumatic stress disorder (PTSD)\.br\ Hypothyroidism\. br\ Insulin resistance\.br\ Mild recurrent major depression\.br\ PCOS (polycystic ovarian syndrome)\.br\ Smoker\.br\ Thyroid nodule\.br\ \.br\ [facility] Family Medicine Office/Clini c Noteon 09-29-2022 Family Medicine Office/Clinic Note Chief Complaint EST. CARE,also question on ADHD History of Present Illness Dominique is a 37-year-old female that presents today to [facility]. Previous PCP was Dr. Dye. ANXIETY [...] borderline personality disorder by a psychiatrist in [place] when she was 17-year-old. Was also previously [...] did the ultrasound and he was in [place]. States she has only seen the doctor [...] This was diagnosed by Dr. Jules in [place] 5 to 6 years ago. She had a glucose tolerance test 3 years ago and failed. She went 2 weeks without her metformin. FIBROMYALGIA She is not currently taking anything for it. It was diagnosed by a division engineer in [place]. She only sees him once a year. [...] directly? ( (more content not included)... Normal [facility] Comment on above: Result Comment: Elec tronically Signed By: Clint Ortiz DO\.br\Date and Time Signed: 09/29/22 20:56 EDT\.br\Electronically Co-Signed By: Rahel Carreno\.br\Date and Time Co-Signed: 09/29/22 13:57 EDT Formson 09-29-2022 Forms [id number]#1 .00CD:127 Normal [facility] PROGESTERONEon 09-16-2022 Progesterone 24.8 ng/mL Normal [facility] Comment on above: Result Comment: Foll icular phase 0.1 - 0.9 Luteal phase 1.8 - 23.9 Ovulation phase 0.1 - 12.0 First trimester 11.0 - 44.3 Second trimester 25.4 - 83.3 Third trimester 58.7 - 214.0 Postmenopausal 0.0 - 0.1 Performed By: #### P DAWNA #### [facility] [address] [place] [address] Dr. Cecy Hernandez PAP ACOG PANEL 2: 30 to 65on 09-03-2022 . . Normal [facility] Comment on above: Result Comment: Perf ormed at: WB Performed By: #### P DAWNA #### [facility] [address] [address] [address] Cecy Heranndez Age Gdln ACOG Testing 30-65 Normal [facility] Comment on above: Performed By: #### P SHERIES #### [facility] [address] [address] [address] Cecy Hernandez DIAGNOSIS: Comment Normal [facility] Comment on above: Result Comment: NEGA TIVE FOR INTRAEPITHELIAL LESION OR MALIGNANCY. Performed at: WB Performed By: #### P DAWNA #### [facility] [address] [address] [address] Cecy Hernandez HPV Aptima Negative Normal Negative [facility] Comment on above: Result Comment: This nucleic acid amplification test detects fourteen high-risk HPV types (16,18,31,33,35,39,45,51,52,56,58,59,66,68) without differentiation. Performed at: =G Performed By: #### P DAWNA #### [facility] [address] [address] [address] Cecy Hernandez HPV Genotype Reflex Comment Normal [facility] Comment on above: Result Comment: Crit eria not met, HPV Genotype not performed. Performed at: WB Performed By: #### P DAWNA #### [facility] [address] [address] [address] Cecy Hernandez Methodology: Comment Normal [facility] Comment on above: Result Comment: This liquid based ThinPrep(R) pap test was screened with the use of an image guided system. Performed at: WB Performed By: #### P SHERIES #### [facility] [address] [address] [address] Cecy Hernandez Note: Comment Normal [facility] Comment on above: Result Comment: The [...] WB Performed By: #### P DAWNA #### [facility] [address] [place] [address] Dr. Cecy Hernandez Performed by: Comment Normal [facility] Comment on above: Result Comment: Ludivina Maldonado, Cloth Trimmer Hand Performed at: WB Performed By: #### P DAWNA #### [facility] [address] [place] [address] Dr. Cecy Hernandez Specimen adequacy: Comment Normal [facility] Comment on above: Result Comment: Sati sfactory for evaluation. Endocervical and/or squamous metaplastic cells (endocervical component) are present. Areas of partially obscuring blood are present. Performed at: WB Performed By: #### P DAWNA #### [facility] [address] [place] [address] Dr. Cecy Hernandez PROGESTERONEon 07-16-2022 Progesterone 15.0 ng/mL Normal [facility] Comment on above: Result Comment: Foll icular phase 0.1 - 0.9 Luteal phase 1.8 - 23.9 Ovulation phase 0.1 - 12.0 First trimester 11.0 - 44.3 Second trimester 25.4 - 83.3 Third trimester 58.7 - 214.0 Postmenopausal 0.0 - 0.1 Performed By: #### P DAWNA #### [facility] [address] [place] [address] Dr. Cecy Hernandez CBC AUTO DIFFon 06-27-2022 BASO # 0.0 103/ul Normal 0.0-0.1 [facility] Comment on above: Performed By: #### P DAWNA #### [facility] [address] [place] [address] Dr. Cecy Hernandez Basophils/100 WBC (Bld) 0.5 % Normal 0.2-2.0 [facility] Comment on above: Performed By: #### P DAWNA #### [facility] [address] [place] [address] Dr. Cecy Hernandez EO # 0.3 103/ul Normal 0.0-0.7 [facility] Comment on above: Performed By: #### P ROGES #### [facility] [address] [place] [address] Dr. Cecy Hernandez Eosinophils/100 WBC (Bld) 3.2 % Normal 0.9-7.0 [facility] Comment on above: Performed By: #### P ROGES #### [facility] [address] [place] [address] Dr. Cecy Hernandez Erythrocyte distribution width (RBC) [Ratio] 12.4 % Normal 11.0-15.0 [facility] Comment on above: Performed By: #### P ROGES #### [facility] [address] [place] [address] Dr. Cecy Hernandez Hematocrit (Bld) [Volume fraction] 40.9 % Normal 36.0-48.0 [facility] Comment on above: Performed By: #### P ROGES #### [facility] [address] [place] [address] Dr. Cecy Hernandez Hemoglobin (Bld) [Mass/Vol] 14.1 g/dL Normal 12.0-16.0 [facility] Comment on above: Performed By: #### P ROGES #### [facility] [address] [place] [address] Dr. Cecy Hernandez IG # 0.03 10e3/ul Normal 0.00-0.03 [facility] Comment on above: Performed By: #### P ROGES #### [facility] [address] [place] [address] Dr. Cecy Hernandez IG % 0.3 % Normal 0.0-0.5 [facility] Comment on above: Performed By: #### P ROGES #### [facility] [address] [place] [address] Dr. Cecy Hernandez LYMPH # 3.6 103/ul Normal 1.2-3.8 [facility] Comment on above: Performed By: #### P ROGES #### [facility] [address] [place] [address] Dr. Cecy Hernandez Lymphocytes/100 WBC (Bld) 41.4 % Normal 20.5-60.0 [facility] Comment on above: Performed By: #### P ROGES #### [facility] [address] [address] [address] Cecy Hernandez MANUAL DIFF REQ NO Normal [facility] Comment on above: Performed By: #### P ROGES #### [facility] [address] [address] [address] Cecy Hernandez MCH (RBC) [Entitic mass] 29.0 pg Normal 26.7-34.0 [facility] Comment on above: Performed By: #### P ROGES #### [facility] [address] [place] [address] Dr. Cecy Hernandez MCHC (RBC) [Mass/Vol] 34.5 g/dL Normal 29.9-35.2 [facility] Comment on above: Performed By: #### P ROGES #### [facility] [address] [place] [address] Dr. Cecy Hernandez MCV (RBC) [Entitic vol] 84.2 fL Normal 81.0-99.0 [facility] Comment on above: Performed By: #### P ROGES #### [facility] [address] [place] [address] Dr. Cecy Hernandez MONO # 0.5 103/ul Normal 0.3-0.8 [facility] Comment on above: Performed By: #### P ROGES #### [facility] [address] [address] [address] Cecy Hernadnez Monocytes/100 WBC (Bld) 5.9 % Normal 1.7-12.0 [facility] Comment on above: Performed By: #### P ROGES #### [facility] [address] [address] [address] Cecy Hernandez NEUT # 4.2 103/ul Normal 1.4-6.5 [facility] Comment on above: Performed By: #### P ROGES #### [facility] [address] [place] [address] Dr. Cecy Hernandez Neutrophils/100 WBC (Bld) 48.7 % Normal 43.0-75.0 [facility] Comment on above: Performed By: #### P SHERIES #### [facility] [address] [place] [address] Dr. Cecy Hernandez Platelet mean volume (Bld) [Entitic vol] 10.0 fL Normal 9.5-13.5 [facility] Comment on above: Performed By: #### P SHERIES #### [facility] [address] [place] [address] Dr. Cecy Hernandez PLT 283 103/ul Normal 150-450 [facility] Comment on above: Performed By: #### P SHERIES #### [facility] [address] [place] [address] Dr. Cecy Hernandez RBC 4.86 106/ul Normal 4.20-5.40 [facility] Comment on above: Performed By: #### P DAWNA #### [facility] [address] [place] [address] Dr. Cecy Hernandez WBC 8.6 103/ul Normal 4.0-11.0 [facility] Comment on above: Performed By: #### P DAWNA #### [facility] [address] [place] [address] Dr. Cecy Hernandez ER URINE PROFILEon 3 Bilirubin Ql (U) Negative Normal NEGATIVE [facility] Comment on above: Performed By: #### P DAWNA #### [facility] [address] [place] [address] Dr. Cecy Hernandez Clarity (U) CLEAR Normal CLEAR [facility] Comment on above: Performed By: #### P DAWNA #### [facility] [address] [place] [address] Dr. Cecy Hernandez Color (U) LT. YELLOW Normal YELLOW [facility] Comment on above: Performed By: #### P DAWNA #### [facility] [address] [place] [address] Dr. Cecy Hernandez ERUAHD A micrscopic examination will be performed if indicated. Normal [facility] Comment on above: Performed By: #### P DAWNA #### [facility] [address] [place] [address] Dr. Cecy Hernandez Glucose Ql (U) Negative Normal NEGATIVE [facility] Comment on above: Performed By: #### P DAWNA #### [facility] [address] [place] [address] Dr. Cecy Hernandez Hemoglobin Ql (U) TRACE-INTACT Abnormal NEGATIVE [facility] Comment on above: Performed By: #### P DAWNA #### [facility] [address] [address] [address] Cecy Hernandez Ketones Ql (U) Negative Normal NEGATIVE [facility] Comment on above: Performed By: #### P DAWNA #### [facility] [address] [place] [address] Dr. Cecy Hernandez LEUKOCYTES Negative Normal NEGATIVE [facility] Comment on above: Performed By: #### P DAWNA #### [facility] [address] [place] [address] Dr. Cecy Hernandez Nitrite Ql (U) Negative Normal NEGATIVE [facility] Comment on above: Performed By: #### P DAWNA #### [facility] [address] [place] [address] Dr. Cecy Hernandez pH (U) 7.0 [pH] Normal 5-9 [facility] Comment on above: Performed By: #### P DAWNA #### [facility] [address] [place] [address] Dr. Cecy Hernandez SPEC GRAVITY 1.010 Normal 1.005-<=1.025 [facility] Comment on above: Performed By: #### P DAWNA #### [facility] [address] [place] [address] Dr. Cecy Hernandez UA PROTEIN Negative Normal NEGATIVE/ TRACE [facility] Comment on above: Performed By: #### P DAWNA #### [facility] [address] [place] [address] Dr. Cecy Hernandez UR MICRO IND INDICATED Normal [facility] Comment on above: Performed By: #### P DAWNA #### [facility] [address] [place] [address] Dr. Cecy Hernandez Urobilinogen Qn (U) 0.2 {Jone'U}/dL Normal 0.2 - 1. 0 [facility] Comment on above: Performed By: #### P ROGES #### [facility] [address] [place] [address] Dr. Cecy Hernandez PREG HCG QUALon 06-27-2022 , QUAL Negative Normal NEGATIVE [facility] Comment on above: Performed By: #### P REG #### [facility] [address] [place] [address] Dr. Cecy Hernandez PROF CHEM 8 (BAS METB)on Anion gap [Moles/Vol] 12.9 mmol/L Normal [facility] Comment on above: Performed By: #### B MP #### [facility] [address] [place] [address] Dr. Cecy Hernandez Calcium [Mass/Vol] 9.0 mg/dL Normal 8.5-10.1 [facility] Comment on above: Performed By: #### B MP #### [facility] [address] [place] [address] Dr. Cecy Hernandez Chloride [Moles/Vol] 101 mmol/L Normal 98-107 [facility] Comment on above: Performed By: #### B MP #### [facility] [address] [place] [address] Dr. Cecy Hernandez CO2 [Moles/Vol] 26.7 mmol/L Normal 21.0-32.0 [facility] Comment on above: Performed By: #### B MP #### [facility] [address] [place] [address] Dr. Cecy Hernandez Creatinine [Mass/Vol] 0.91 mg/dL Normal 0.55-1.02 [facility] Comment on above: Performed By: #### B MP #### [facility] [address] [place] [address] Dr. Cecy Hernandez EGFR-AF CANADIAN >60 Normal >=60 [facility] Comment on above: Performed By: #### B MP #### [facility] [address] [place] [address] Dr. Cecy Hernandez EGFR-NON AF CANADIAN >60 Normal >=60 [facility] Comment on above: Performed By: #### B MP #### [facility] [address] [address] [address] Cecy Hernandez Glucose [Mass/Vol] 86 mg/dL Normal 74-106 [facility] Comment on above: Performed By: #### B MP #### [facility] [address] [address] [address] Cecy Hernandez Potassium [Moles/Vol] 3.6 mmol/L Normal 3.5-5.1 [facility] Comment on above: Performed By: #### B MP #### [facility] [address] [address] [address] Cecy Hernandez Sodium [Moles/Vol] 137 mmol/L Normal 136-145 [facility] Comment on above: Performed By: #### B MP #### [facility] [address] [address] [address] Cecy Hernandez Urea nitrogen [Mass/Vol] 14.0 mg/dL Normal 7.0-18.0 [facility] Comment on above: Performed By: #### B MP #### [facility] [address] [address] [address] Cecy Hernandez Urea nitrogen/Creatinine [Mass ratio] 15.4 mg/mg Normal [facility] Comment on above: Performed By: #### B MP #### [facility] [address] [address] [address] Cecy Hernandez URINE MICROSCOPIC ONLYon BACTERIA NONE SEEN Normal NONE SEEN [facility] Comment on above: Performed By: #### P DAWNA #### [facility] [address] [place] [address] Dr. Cecy Hernandez Bacteria identified Cx Nom (U) NOT INDICATED Normal [facility] Comment on above: Performed By: #### P DAWNA #### [facility] [address] [place] [address] Dr. Cecy Hernandez CAST NONE SEEN Normal NONE SEEN [facility] Comment on above: Performed By: #### P DAWNA #### [facility] [address] [place] [address] Dr. Cecy Hernandez Crystals LM Nom (Urine sed) NONE SEEN Normal NONE SEEN [facility] Comment on above: Performed By: #### P ROGES #### [facility] [address] [place] [address] Dr. Cecy Hernandez Epithelial cells LM Ql (Urine sed) FEW Abnormal NONE SEEN /RARE [facility] Comment on above: Performed By: #### P ROGES #### [facility] [address] [place] [address] Dr. Cecy Hernandez MUCOUS NONE SEEN Normal NONE SEEN [facility] Comment on above: Performed By: #### P ROGES #### [facility] [address] [place] [address] Dr. Cecy Hernandez RBC 0-2 Normal 0-2 [facility] Comment on above: Performed By: #### P ROGES #### [facility] [address] [place] [address] Dr. Cecy Hernandez WBC 2-5 Abnormal NONE SEEN [facility] Comment on above: Performed By: #### P ROGES #### [facility] [address] [place] [address] Dr. Cecy Hernandez US PELVIS TRANSVAGon 023 [...] by: KEYANNA SHARPE Date: 2022-06-27 19:44 Normal [facility] FREE T3on 05-19-2022 FREE T3 2.17 pg/mlL Critically low 2.18-3.98 [facility] Comment on above: Performed By: #### B MP, TSH, FT3 #### [facility] [address] [place] [address] Dr. Cecy Hernandez PROF CHEM 8 (BAS METB)on Anion gap [Moles/Vol] 11.5 mmol/L Normal [facility] Comment on above: Performed By: #### B MP, TSH, FT3 #### [facility] [address] [address] [address] Cecy Hernandez Calcium [Mass/Vol] 8.7 mg/dL Normal 8.5-10.1 [facility] Comment on above: Performed By: #### B MP, TSH, FT3 #### [facility] [address] [place] [address] Dr. Cecy Hernandez Chloride [Moles/Vol] 102 mmol/L Normal 98-107 [facility] Comment on above: Performed By: #### B MP, TSH, FT3 #### [facility] [address] [place] [address] Dr. Cecy Hernandez CO2 [Moles/Vol] 26.3 mmol/L Normal 21.0-32.0 [facility] Comment on above: Performed By: #### B MP, TSH, FT3 #### [facility] [address] [place] [address] Dr. Cecy Hernandez Creatinine [Mass/Vol] 0.82 mg/dL Normal 0.55-1.02 [facility] Comment on above: Performed By: #### B MP, TSH, FT3 #### [facility] [address] [place] [address] Dr. Cecy Hernandez EGFR-AF CANADIAN >60 Normal >=60 [facility] Comment on above: Performed By: #### B MP, TSH, FT3 #### [facility] [address] [place] [address] Dr. Cecy Hernandez EGFR-NON AF CANADIAN >60 Normal >=60 [facility] Comment on above: Performed By: #### B MP, TSH, FT3 #### [facility] [address] [address] [address] Cecy Hernandez Glucose [Mass/Vol] 106 mg/dL Normal 74-106 [facility] Comment on above: Performed By: #### B MP, TSH, FT3 #### [facility] [address] [address] [address] Cecy Hernandez Potassium [Moles/Vol] 3.8 mmol/L Normal 3.5-5.1 [facility] Comment on above: Performed By: #### B MP, TSH, FT3 #### [facility] [address] [address] [address] Cecy Hernandez Sodium [Moles/Vol] 136 mmol/L Normal 136-145 [facility] Comment on above: Performed By: #### B MP, TSH, FT3 #### [facility] [address] [address] [address] Cecy Hernandez Urea nitrogen [Mass/Vol] 8.0 mg/dL Normal 7.0-18.0 [facility] Comment on above: Performed By: #### B MP, TSH, FT3 #### [facility] [address] [place] [address] Dr. Cecy Hernandez Urea nitrogen/Creatinine [Mass ratio] 9.8 mg/mg Normal [facility] Comment on above: Performed By: #### B MP, TSH, FT3 #### [facility] [address] [place] [address] Dr. Cecy Hernandez TSHon 05-19-2022 TSH 0.415 uIU/mL Normal 0.358-3.740 [facility] Comment on above: Performed By: #### B MP, TSH, FT3 #### [facility] [address] [place] [address] Dr. Cecy Hernandez PROGESTERONEon 05-13-2022 Progesterone 15.9 ng/mL Normal [facility] Comment on above: Result Comment: Foll icular phase 0.1 - 0.9 Luteal phase 1.8 - 23.9 Ovulation phase 0.1 - 12.0 First trimester 11.0 - 44.3 Second trimester 25.4 - 83.3 Third trimester 58.7 - 214.0 Postmenopausal 0.0 - 0.1 Performed By: #### P ROGES #### [facility] [address] [place] [address] Dr. Cecy Hernandez PROGESTERONEon 04-12-2022 Progesterone 9.8 ng/mL Normal [facility] Comment on above: Result Comment: Foll icular phase 0.1 - 0.9 Luteal phase 1.8 - 23.9 Ovulation phase 0.1 - 12.0 First trimester 11.0 - 44.3 Second trimester 25.4 - 83.3 Third trimester 58.7 - 214.0 Postmenopausal 0.0 - 0.1 Performed By: #### P DAWNA #### [facility] [address] [place] [address] Dr. Cecy Hernandez PROGESTERONEon 03-12-2022 Progesterone 13.8 ng/mL Normal [facility] Comment on above: Result Comment: Foll icular phase 0.1 - 0.9 Luteal phase 1.8 - 23.9 Ovulation phase 0.1 - 12.0 First trimester 11.0 - 44.3 Second trimester 25.4 - 83.3 Third trimester 58.7 - 214.0 Postmenopausal 0.0 - 0.1 Performed By: #### P DAWNA #### [facility] [address] [place] [address] Dr. Cecy Hernandez PROGESTERONEon 02-12-2022 Progesterone 12.7 ng/mL Normal [facility] Comment on above: Result Comment: Foll icular phase 0.1 - 0.9 Luteal phase 1.8 - 23.9 Ovulation phase 0.1 - 12.0 First trimester 11.0 - 44.3 Second trimester 25.4 - 83.3 Third trimester 58.7 - 214.0 Postmenopausal 0.0 - 0.1 Performed By: #### P ROGES #### [facility] [address] [place] [address] Dr. Cecy Hernandez PROGESTERONEon 01-11-2022 Progesterone 19.2 ng/mL Normal [facility] Comment on above: Result Comment: Foll icular phase 0.1 - 0.9 Luteal phase 1.8 - 23.9 Ovulation phase 0.1 - 12.0 First trimester 11.0 - 44.3 Second trimester 25.4 - 83.3 Third trimester 58.7 - 214.0 Postmenopausal 0.0 - 0.1 Performed By: #### P DAWNA #### [facility] [address] [address] [address] Cecy Hernandez COVID Quick Testingon 2021 Result Positive [facility] Other Quick Fluon 11-15-2021 FLUAV Ab CF (S) [Titer] Negative [facility] Other FLUBV Ab CF (S) [Titer] Negative [facility] Other FREE T3on 11-14-2021 FREE T3 2.17 pg/mlL Critically low 2.18-3.98 [facility] Comment on above: Performed By: #### P DAWNA #### [facility] [address] [place] [address] Dr. Cecy Hernandez TSHon 11-14-2021 TSH 0.265 uIU/mL Critically low 0.358-3.740 [facility] Comment on above: Performed By: #### P DAWNA #### [facility] [address] [place] [address] Dr. Cecy Hernandez TSH RANGE SEE BELOW Normal [facility] Comment on above: Result Comment: <0.3 4 UIU/ml HYPERTHYROID 0.34-5.60 UIU/ml EUTHYROID >5.60 UIU/ml HYPOTHYROID Performed By: #### P DAWNA #### [facility] [address] [place] [address] Dr. Cecy Hernandez PROGESTERONEon 10-26-2021 Progesterone 0.1 ng/mL Normal [facility] Comment on above: Result Comment: Foll icular phase 0.1 - 0.9 Luteal phase 1.8 - 23.9 Ovulation phase 0.1 - 12.0 First trimester 11.0 - 44.3 Second trimester 25.4 - 83.3 Third trimester 58.7 - 214.0 Postmenopausal 0.0 - 0.1 Performed By: #### P DAWNA #### [facility] [address] [place] [address] Dr. Cecy Hernandez XR shoulder LT min 2V*on XR shoulder LT min 2V* [facility] [place] [address] [place] [address] XRay Report Signed Patient: Dominique Crenshaw MR#: [id number] 4 : 1985 Acct:[id number] Age/Sex: 36 / F ADM Date: 08/15/21 Loc: [facility] Room: Type: [facility] Attending Dr: Petros Lion MD Ordering Provider: [...] Giovani Nelson M.D.08/15/2021 1:32 PM Dictation Location: [place] [address] Transcribed By: [facility] 08/15/21 1332 Dictated By: Giovani Nelson DO 08/15/21 1331 Signed By: 08/15/21 1332 Normal [facility] Vital Signs Date Time Vital Sign Value Performing Clinician Facility 06-25-2023 15:02-[address] [facility] 06-25-2023 15:02-0500 Diastolic blood pressure 90 mm[Hg] [facility] 06-25-2023 15:02-0500 Heart rate 106 /min [facility] 06-25-2023 15:02-0500 SaO2% (BldA) [Mass fraction] 99 % [facility] 06-25-2023 15:02-0500 Systolic blood pressure 120 mm[Hg] [facility] 06-07-2023 09:20-0500 Blood Pressure Location Vinnie Romero [facility] 06-07-2023 09:20-0500 Body temperature 97.88 [degF] Vinnie Romero [facility] 06-07-2023 09:20-0500 Diastolic blood pressure 79 mm[Hg] Vinnie Romero [facility] 06-07-2023 09:20-0500 Heart rate 89 /min Vinnie Romero [facility] 06-07-2023 09:20-0500 SaO2% (BldA) [Mass fraction] 99 % Vinnie Romero [facility] 06-07-2023 09:20-0500 Systolic blood pressure 119 mm[Hg] Vinnie Romero [facility] 04-21-2023 08:02-[address] [facility] 04-21-2023 08:02-0500 Diastolic blood pressure 80 mm[Hg] [facility] 04-21-2023 08:02-0500 Heart rate 73 /min [facility] 04-21-2023 08:02-0500 SaO2% (BldA) [Mass fraction] 98 % [facility] 04-21-2023 08:02-0500 Systolic blood pressure 114 mm[Hg] [facility] 02-18-2023 09:29-[address] [facility] 02-18-2023 09:29-0400 Diastolic blood pressure 80 mm[Hg] [facility] 02-18-2023 09:29-0400 Heart rate 102 /min [facility] 02-18-2023 09:29-0400 Respiratory rate 16 /min Clint [facility] 02-18-2023 09:29-0400 SaO2% (BldA) [Mass fraction] 98 % [facility] 02-18-2023 09:29-0400 Systolic blood pressure 120 mm[Hg] [facility] 01-07-2023 10:44-[address] [facility] 01-07-2023 10:44-0400 Diastolic blood pressure 84 mm[Hg] [facility] 01-07-2023 10:44-0400 Heart rate 89 /min [facility] 01-07-2023 10:44-0400 SaO2% (BldA) [Mass fraction] 97 % [facility] 01-07-2023 10:44-0400 Systolic blood pressure 120 mm[Hg] [facility] 12-03-2022 11:28-0400 Blood Pressure Location [facility] 12-03-2022 11:28-0400 Diastolic blood pressure 86 mm[Hg] [facility] 12-03-2022 11:28-0400 Heart rate 97 /min [facility] 12-03-2022 11:28-0400 SaO2% (BldA) [Mass fraction] 96 % [facility] 12-03-2022 11:28-0400 Systolic blood pressure 128 mm[Hg] [facility] 09-29-2022 08:54-0400 Blood Pressure Location [facility] 09-29-2022 08:54-0400 Body temperature 98.78 [degF] Clint Ortiz [facility] 09-29-2022 08:54-0400 Diastolic blood pressure 82 mm[Hg] Clint Angel [facility] 09-29-2022 08:54-0400 Heart rate 92 /min [facility] 09-29-2022 08:54-0400 SaO2% (BldA) [Mass fraction] 99 % [facility] 09-29-2022 08:54-0400 Systolic blood pressure 118 mm[Hg] [facility] 11-15-2021 19:00-0400 Body height 152.4 cm Melissa Weaver Other [facility] Other 11-15-2021 19:00-0400 Body mass index (BMI) [Ratio] 40.42 kg/m2 Melissa Weaver Other [facility] Other 11-15-2021 19:00-0400 Body temperature 96 [degF] Melissa Weaver Other [facility] Other 11-15-2021 19:00-0400 Body weight 93.9 kg Melissa Weaver Other [facility] Other 11-15-2021 19:00-0400 SaO2% (BldA) [Mass fraction] 98 % Melissa Weaver Other [facility] Other Encounters Encounter Date Encounter Type Care Provider Facility Start: 08-20-2023 End: 08-21-2023 ambulatory Sendy Oquendo Facility:[facility] Start: 08-20-2023 End: 08-20-2023 Patient encounter procedure Sendy Oquendo [facility] Start: 08-17-2023 End: 08-17-2023 ambulatory EVELYNE CARCAMO Facility:[facility] Start: 08-17-2023 End: 08-17-2023 Patient encounter procedure Evelyne Carcamo DPM Work Phone: Orthopaedics Comment on above: 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); DJD (degenerative joint disease), ankle and foot, left; DJD (degenerative joint disease), ankle and foot, right; Pain in both feet 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) Start: 08-03-2023 End: 08-03-2023 ambulatory EVELYNE CARCAMO Facility:[facility] Start: 08-03-2023 End: 08-03-2023 Patient encounter procedure Cast Tech Zoe Work Phone: Orthopaedics Comment on above: 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) Start: 07-27-2023 Clinisync Result Encounter Mikal Nas DO Work Phone: [facility] Unsolicited Start: 07-27-2023 Clinisync Result Encounter Mikal Nas DO Work Phone: [facility] Unsolicited Start: 07-21-2023 End: 07-21-2023 ambulatory EVELYNE CARLOS ALBERTO Facility:[facility] Start: 07-21-2023 End: 07-21-2023 Patient encounter procedure [employer]oe Work Phone: Orthopaedics Comment on above: 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) Start: 07-21-2023 End: 07-22-2023 ambulatory Clint Ortiz Facility:[facility] Start: 07-20-2023 Telephone encounter Evelyne Carlos Alberto DPM Work Phone: Orthopaedics Comment on above: Patient Request Start: 07-13-2023 End: 07-13-2023 ambulatory EVELYNE CARCAMO Facility:[facility] Start: 06-25-2023 End: 06-26-2023 ambulatory Clint Ortiz Facility:[facility] Start: 06-25-2023 End: 06-26-2023 ambulatory Clint Ortiz Facility:[facility] Start: 06-25-2023 End: 06-25-2023 Patient encounter procedure Clint J Cromley [facility] Start: 06-25-2023 End: 06-25-2023 Patient encounter procedure Clint Ortiz [facility] Start: 06-07-2023 End: 06-08-2023 ambulatory Vinnie Romero Facility:[facility] Start: 06-07-2023 End: 06-07-2023 Patient encounter procedure Vinnie Romero [facility] Start: 04-21-2023 End: 04-22-2023 ambulatory Clint Ortiz Facility:[facility] Start: 04-21-2023 End: 04-21-2023 Patient encounter procedure Clint Ortiz [facility] Start: 04-20-2023 End: 04-21-2023 ambulatory Clint Ortiz Facility:[facility] Start: 04-20-2023 End: 04-20-2023 Patient encounter procedure Clint Araceli Esparzatorresjas [facility] Start: 02-18-2023 End: 02-19-2023 ambulatory Clint Ortiz Facility:[facility] Start: 02-18-2023 End: 02-18-2023 Patient encounter procedure Clint Ortiz [facility] Start: 02-18-2023 End: 02-18-2023 Well adult monitoring check done Clint Ortiz [facility] Start: 01-07-2023 End: 01-08-2023 ambulatory Clint Ortiz Facility:[facility] Start: 01-07-2023 End: 01-07-2023 Patient encounter procedure Clint Ortiz [facility] Start: 12-08-2022 ambulatory Clint Ortiz Facility :[facility] Start: 12-03-2022 End: 12-04-2022 ambulatory Clint Ortiz Facility:[facility] Start: 12-03-2022 End: 12-03-2022 Patient encounter procedure Clint Ortiz [facility] Start: 10-27-2022 End: 10-28-2022 ambulatory Clint Tayjas Facility:[facility] Start: 10-27-2022 End: 10-27-2022 Patient encounter procedure Clint Araceli Ortiz [facility] Start: 10-16-2022 End: 10-17-[address] MIKAL LOVELL . Facility: Start: 10-06-2022 End: 10-07-2022 ambulatory Clint Tayjas Facility:[facility] Start: 10-06-2022 End: 10-06-2022 Patient encounter procedure [facility] Ortiz [facility] Start: 09-29-2022 End: 09-30-2022 ambulatory Clint Charles Crotorresjas Facility:[facility] Start: 09-29-2022 End: 09-29-2022 Patient encounter procedure Clint Ortiz [facility] Start: 09-15-2022 End: 09-16-[address] MIKAL LOVELL . Facility:[facility] Start: 08-26-2022 End: 08-26-[address] MIKAL LOVELL . Facility:[facility] Start: 07-15-2022 End: 07-16-[address] MIKAL LOVELL . Facility:[facility] Start: 06-27-2022 End: 06-27-[address] GIOVANI SALMERON . Facility:[facility] Start: 05-24-2022 End: 05-24-2022 ambulatory REED H FAWWAD Facility:[facility] Start: 05-22-2022 End: 05-23-2022 ambulatory REED H FAWWAD Facility:[facility] Start: 05-19-2022 End: 05-20-2022 ambulatory REED H FAWWAD Facility:[facility] Start: 05-12-2022 End: 05-13-2022 ambulatory REED H FAWWAD Facility:[facility] Start: 04-11-2022 End: 04-12-2022 ambulatory SHAIKH Higinio DYE Facility:[facility] Start: 03-11-2022 End: 03-12-2022 ambulatory SHAIKH Higinio DYE Facility:[facility] Start: 02-10-2022 End: 02-11-2022 ambulatory SHAIKH Higinio DYE Facility:[facility] Start: 01-10-2022 End: 01-11-[address] MIKAL LOVELL . Facility:[facility] Start: 11-15-2021 End: 11-15-2021 ambulatory Melissa Weaver Other [facility] Other Start: 11-15-2021 Office outpatient vi sit 25 minutes Melissa Weaver [facility] Start: 11-14-2021 End: 11-15-2021 ambulatory REEDRUSTAM MANJARREZVernon Facility:[facility] Start: 10-24-2021 End: 10-25-[address] MIKAL LOVELL . Facility:[facility] Start: 08-15-2021 End: 08-15-2021 ambulatory Petros Lion Other [facility] Other Start: 08-15-2021 Office outpatient ne w 30 minutes Petros Lion [facility] Procedures Date Procedure Procedure Detail Performing Clinician Start: 07-27-2023 ALL PROGESTERONE Mikal Lovell DO Work Phone: delivery only Christiano Ortiz Colonoscopy Clint Ortiz Dilation & curettage dx&/ther nonobstetric Clint Ortiz Operation on gallbladder Eriberto sarah Ortiz Structure of carpal canal (body structure) Clint Ortiz Plan of Treatment Date Care Activity Detail Author Start: 02-23-2024 ambulatory Ambulatory Facility:[facility] Start: 10-16-2023 ambulatory Ambulatory Facility:[facility] Start: 08-28-2023 End: 08-28-2023 Patient encounter procedure 08/28/2023 11:10 AM EDT Office Visit [facility] [address] [place] [address] Sendy Oquendo MD [address] [address] ALEX ELIZALDE Start: 06-15-2023 Depression Assessment Depression Ass essment [facility] Start: 2015 Screening for malign ant neoplasm of cervix HPV Testing [facility] Start: 2006 Screening for malign ant neoplasm of cervix Pap Testing [facility] Start: 2004 Urine microalbumin profile DTaP,Tdap,Td Vaccine (1 - Tdap) [facility] Start: 2003 Hepatitis C screening Hepatitis C Sc reening [facility] Start: 2003 HIV screening HIV Screening [facility] Start: 1985 Covid-19 Vaccine (#1) Covid-19 Vacci ne (#1) [facility] Start: 1985 Hepatitis B Vaccine (1 of 3 - 3-dose series) Hepatitis B Vaccine (1 of 3 - 3-dose series) [facility] Immunizations Immunization Date Immunization Notes Care Provider Fa meghanty 06-23-2023 influenza, injectabl e, quadrivalent, preservative free [facility] 04-21-2023 influenza, injectabl e, quadrivalent, preservative free [facility] 05-05-2022 influenza virus vacc ine, unspecified formulation [facility] 05-21-2021 influenza virus vacc ine, unspecified formulation [facility] Payers Date Payer Category Payer Unknown [id number] 2019 Medicare [id number] 1985 Unknown [id number] 2.16.84 0.1.091483.3.579.2.593 1985 Unknown [id number] 2.16.84 0.1.006540.3.579.2.593 1985 Unknown [id number] 2.16.84 0.1.316547.3.579.2.593 1985 Unknown [id number] 2.16.84 0.1.893894.3.579.2.593 1985 Unknown [id number] 2.16.84 0.1.831043.3.579.2.593 1985 Unknown [id number] 2.16.84 0.1.008760.3.579.2.593 1985 Unknown [id number] 2.16.84 0.1.995077.3.579.2.593 1985 Unknown [id number] 2.16.84 0.1.319829.3.579.2.593 1985 Unknown [id number] 2.16.84 0.1.274796.3.579.2.593 1985 Unknown [id number] 2.16.84 0.1.890275.3.579.2.593 1985 Unknown [id number] 2.16.84 0.1.443816.3.579.2.593 1985 Unknown [id number] 2.16.84 0.1.729268.3.579.2.593 1985 Unknown [id number] 2.16.84 0.1.559417.3.579.2.593 1985 Unknown [id number] 2.16.84 0.1.664559.3.579.2.593 1985 Unknown [id number] 2.16.84 0.1.426963.3.579.2.593 1985 Unknown [id number] 2.16.8 40.1.097924.3.579.2.727 1985 Unknown [id number] 2.16.8 40.1.182770.3.579.2.727 1985 Unknown [id number] 2.16.8 40.1.902449.3.579.2.727 1985 Unknown [id number] 2.16.8 40.1.961911.3.579.2.727 1985 Unknown [id number] 2.16.8 40.1.793209.3.579.2.727 1985 Unknown [id number] 2.16.8 40.1.604015.3.579.2.727 1985 Unknown [id number] 2.16.8 40.1.797599.3.579.2.727 1985 Unknown [id number] 2.16.8 40.1.393514.3.579.2.727 1985 Unknown [id number] 2.16.8 40.1.450246.3.579.2.727 1985 Unknown [id number] 2.16.8 40.1.655547.3.579.2.727 1985 Unknown [id number] 2.16.8 40.1.879218.3.579.2.727 1985 Unknown [id number] 2.16.8 40.1.975731.3.579.2.727 1985 Unknown [id number] 2.16.8 40.1.193198.3.579.2.727 1985 Unknown [id number] 2.16.8 40.1.213031.3.579.2.727 1985 Unknown [id number] 2.16.8 40.1.246961.3.579.2.727 1985 Unknown [id number] 2.16.8 40.1.283845.3.579.2.727 1985 Unknown [id number] 2.16.8 40.1.678755.3.579.2.727 1985 Unknown [id number] 2.16.8 40.1.714966.3.579.2.727 1959 Medicare [id number] 2.1 6.840.1.415685.19 1959 Unknown [id number] 2. 16.840.1.535093.19 1959 Unknown [id number] Social History Date Type Detail Facility Start: 04-15-2023 End: 07-13-2023 Sex Assigned At [facility] Start: 09-29-2022 End: 01-07-20[address] Tobacco [address] [facility] Tobacco Current vaping o r e-cigarette use Smokeless Tobacco Use:. Vaping, 12 per day. Ready to change: No. [facility] Tobacco smoking status No Smokin g Status Entered [facility] Start: 06-07-2023 End: 07-21-2023 Tobacco smoking status Ex-smoker (finding) [facility] Tobacco smoking stat [facility] Tobacco smoking consumption unknown [facility] Start: 04-15-2023 End: 07-13-2023 History of Social function [facility] Start: 1985 Sex Assigned At Not on file [facility] History of tobacco use Current smoker [facility] History of tobacco use Cigarette Sm[facility] Start: 11-21-2022 Tobacco use and exposure User of smokeless tobacco [facility] [facility] Start: 04-15-2023 Alcohol intake Current drinker of alcohol (finding) [facility] Start: 11-21-2022 Tobacco Comment I now use a vape [facility] Start: 11-21-2022 Alcohol Comment Rare [facility] Start: 11-14-2022 Gender identity Identifies as female gender (finding) [facility] Start: 11-14-2022 Sexual orientation Heterosexual (finding) [facility] Functional Status Date Assessment Result Facility 06-07-2023 Functional Status N/A [facility] 04-21-2023 Functional Status N/A [facility] 02-18-2023 Functional Status N/A [facility] 01-07-2023 Functional Status N/A [facility] 12-03-2022 Functional Status N/A [facility] 09-29-2022 Functional Status N/A [facility] Clinical Notes 08-15-2021 to 08-17-2023 Antonio Moreno Cast Tech - 08/17/2023 3:31 PM Evelyne Reed DPM - 08/17/2023 3:15 PM Antonio To Cast Tech - 08/03/2023 3:45 PM Antonio To Cast Tech - 07/21/2023 3:40 PM ESTLaboratory Note Date & Type Note Facility 08-17-2023 Note HNO ID: [id number] Author: ANTONIO MORENO Cast Tech Service: ? Author Type: Tmd Teacher Assistant Type: Progress Notes Filed: 08/17/2023 15:32 Note Text: Patient in today for scheduled appointment. Cast removed. Left leg cleansed with Cavilon. Examined by Dr. Carcamo. Fitted patient with a Small Tall Foam Walker for the left leg. Instructions on application, adjustments and care given. Will f/u as scheduled/prn. SHAKIRA Mejía [facility] 08-17-2023 Note HNO ID: [id number] Author: EVELYNE CARCAMO DPM Service: ? Author Type: Physician Type: Progress Notes Filed: 08/17/2023 15:27 Note Text: Patient Visit for Dominique Llamas 1985 38 year old female Date of Service: August 17, 2023 SUBJECTIVE: Chief Complaint: Patient presents with: Left Foot - Established Patient, Follow Up, Pain /Pain Scales: Verbal (Numeric Rating or Visual Analog Scale) Pain Level: 0 Pain Location: Foot-Left Duration Amount of Time: 1 Duration Units: Months Frequency: Intermittent Intervention/Comfort measure: (cast) Comments: She is here for a 1 month follow up of bilateral club feet. Pain has improved since the last visit. Additional HPI: History of bilateral club foot surgery x 2 - 1983, 86 Pain worse with activity throughout childhood Does have recurrent flare of symptoms LEFT hind foot worse than RIGHT Difficulty walking Now asymptomatic PCP: No primary care provider on file. No past medical history on file. Current Outpatient Medications Medication Sig albuterol HFA (PROVENTIL HFA, VENTOLIN HFA) 90 [...] Take 1 tablet by mouth every afternoon. metFORMIN (GLUCOPHAGE) 500 mg tablet Take 500 mg by mouth two times a day. methylphenidate ER (METADATE ER) 20 mg ER [...] with loss of motion talo calcaneal joint No pain at this time LABS: Most recent labs reviewed LABORATORY STUDIES: No results for input(s): HB , WBC , PLT , WSR , CRP , CCPABG , RF , INR , CREATININE , ALB , PROT , URICACID , HBA1C , VITD25 in the last 21833 hours. X-ray deformity foot and ankle consistent [...] treatment plan. Treatment options discussed at length Fit and dispense tall air CAM walker boot Recommend use with compression stockings If not improved recommend follow up and further work up All questions were answered. Dominique Lalmas appeared to be well informed. Greater than 50% of the visit was spent face to face counseling and/or coordinating care for the patient. Evelyne Carcamo DPM [facility] 08-17-2023 History of Presen t illness Narrative Patient in today for scheduled appointment. Cast removed. Left leg cleansed with Cavilon. Examined by Dr. Carcamo. Fitted patient with a Small Tall Foam Walker for the left leg. Instructions on application, adjustments and care given. Will f/u as scheduled/prn. SHAKIRA Mejía documented in this encounter [facility] 08-17-2023 History of Presen t illness Narrative Patient Visit for Dominique Llamas 1985 38 year old female Date of Service: August 17, 2023 SUBJECTIVE: Chief Complaint: Patient presents with: Left Foot - Established Patient, Follow Up, Pain /Pain Scales: Verbal (Numeric Rating or Visual Analog Scale) Pain Level: 0 Pain Location: Foot-Left Duration Amount of Time: 1 Duration Units: Months Frequency: Intermittent Intervention/Comfort measure: (cast) Comments: She is here for a 1 month follow up of bilateral club feet. Pain has improved since the last visit. Additional HPI: History of bilateral club foot surgery x 2 - 1983, 86 Pain worse with activity throughout childhood Does have recurrent flare of symptoms LEFT hind foot worse than RIGHT Difficulty walking Now asymptomatic PCP: No primary care provider on file. No past medical history on file. Current Outpatient Medications Medication Sig albuterol HFA (PROVENTIL HFA, VENTOLIN HFA) 90 [...] Take 1 tablet by mouth every afternoon. metFORMIN (GLUCOPHAGE) 500 mg tablet Take 500 mg by mouth two times a day. methylphenidate ER (METADATE ER) 20 mg ER tablet Take 1 tablet by mouth every afternoon. No current facility-administered medications for this visit. ALLERGIES Allergen Reactions Ziprasidone Anaphylaxis [place] No past surgical history on file. No [...] with loss of motion talo calcaneal joint No pain at this time LABS: Most recent labs reviewed LABORATORY STUDIES: No results for input(s): HB , WBC , PLT , WSR , CRP , CCPABG , RF , INR , CREATININE , ALB , PROT , URICACID , HBA1C , VITD25 in the last 55772 hours. X-ray deformity foot and ankle consistent [...] treatment plan. Treatment options discussed at length Fit and dispense tall air CAM walker boot Recommend use with compression stockings If not improved recommend follow up and further work up All questions were answered. Dominique Llamas appeared to be well informed. Greater than 50% of the visit was spent face to face counseling and/or coordinating care for the patient. Evelyne Carcamo DPM documented in this encounter [facility] 08-03-2023 Note HNO ID: [id number] Author: ANTONIO MORENO Cast Tech Service: ? Author Type: Tmd Teacher Assistant Type: Progress Notes Filed: 08/03/2023 15:47 Note [...] given. Will f/u as scheduled/prn. SHAKIRA Mejía [facility] 08-03-2023 History of Presen t illness Narrative [...] scheduled/prn. SHAKIRA Mejía documented in this encounter [facility] 07-21-2023 Note HNO ID: [id number] Author: ANTONIO MORENO Cast Tech Service: ? Author Type: Tmd Teacher Assistant Type: Progress Notes Filed: 07/21/2023 15:41 Note Text: Ms. Llamas has been informed that the supervising physician today is Dr. Lynch. I am carrying out the treatment plan of Dr. Carcamo. Patient came in today c/o of Cast being loose. Cast was removed and skin inspected. Skin appeared normal. Cast was reapplied. Patient instructed follow-up with doctor during next scheduled appointment/prn. SHAKIRA Mejía [facility] 07-21-2023 History of Presen t illness Narrative [...] appointment/prn. SHAKIRA Mejía documented in this encounter [facility] 07-20-2023 Miscellaneous Notes Called patient and [...] calling: self Call patient at: on cell [phone] (home) Was an appointment scheduled: No Closing statement: Symptom Call: Thank you for calling [facility], your call is very important. A nurse will call in approximately 2-4 hours during business hours. If this is an emergency, please contact 911. Cheyenne Mccarty documented in this encounter [facility] 07-13-2023 Note HNO ID: [id number] Author: ANTONIO MORENO Cast Tech Service: ? Author Type: Tmd Teacher Assistant Type: Progress Notes Filed: 07/13/2023 15:22 Note Text: Applied A Short Leg Weightbearing Cast to the left leg. Instructions on cast care given. A medium Cast Shoe was dispensed. Will f/u as scheduled/prn. SHAKIRA Mejía [facility] 07-13-2023 Note HNO ID: [id number] Author: EVELYNE CARCAMO DPM Service: ? Author [...] History of bilateral club foot surgery x - 1983, 86 Pain worse with activity [...] , HBA1C , VITD25 in the last 91087 hours. X-ray deformity foot and ankle consistent [...] I discussed wit (more content not included)... [facility] 07-13-2023 Note HNO ID: [id number] Author: MAVIS REEDER RT(R) Service: ? Author Type: Technologist Type: Progress [...] PATIENT PRESENTS WITH AN IMPLANTABLE OR ATTACHED SPECIALTIES OPERATOR: No RADIOLOGY DEPARTMENT: General X-ray: Exam(s) Completed: Lower Extremity X-Ray(s): Ankle, Bilateral and Foot, Bilateral PERIPHERAL IV DATA: Not applicable SIGNED BY: RT Karmen(R) July 13, 2023 2:14 PM [facility] 06-25-2023 Hospital Discharg e instructions Patient Education 06/25/2023 15:58:28 Heat Therapy, Bbxs-bp-[id number] Heat Therapy Heat therapy can help ease [...] provider. Document Revised: 04/03/2021 Document Reviewed: 04/03/2021 [employer] Patient Education 2022 Friend.ly. Follow Up Care 06/22/2023 09:04:37 With:Angel GIL, ROSETTA Hubbard, PED Address: [address] [place] [address] [address] [place] [address] [phone] When:1 month Comments:1-2 month f/u - 20 min slot [facility] [place] 02-18-2023 Hospital Discharg e instructions Patient Education [...] health care provider or diet and nutrition assistant (dietitian). This may include: ?Eating fewer calories. [...] provider. Document Revised: 07/28/2021 Document Reviewed: 07/28/2021 [employer] Patient Education 2022 Friend.ly. 02/18/2023 10:46:33 BMI for Adults BMI for [...] numbers. This can be done either in [place] ([place] or metric measurements. Note that charts and online BMI calculators are available to help you find your BMI quickly and easily without having to do these calculations yourself. To calculate your BMI in [place] ([place] measurements: 1.Measure your weight in pounds [...] Centers for Disease Control and Prevention: www.cdc.gov [place] Heart Association: www.heart.org National Heart, Lung, and Blood Grant: www.nhlbi.nih.gov Summary Body mass index (BMI) is a number that is calculated from a person's weight and height. BMI may help estimate how much of a person's weight is composed of fat. BMI can help identify those who may be at higher risk for certain medical problems. BMI can be measured using Slovak measurements or metric measurements. BMI charts are used to identify whether you are underweight, normal weight, overweight, or obese. This information is not intended to replace advice given to you by your health care provider. Make sure you discuss any questions you have with your health care provider. Document Revised: 02/22/2020 Document Reviewed: 12/30/2019 [employer] Patient Education 2022 Friend.ly. 02/18/2023 10:19:14 Steps to Quit Smoking, Qpdm-jc-Bnwv Steps to Quit Smoking Smoking tobacco is [...] a prescription, and some you can buy xvjz-nac-flxmtdr. Some medicines may contain a drug called [...] you. Call a phone quitline, such as 4-515-CAJNUS HealthVestNOW, reach out to support groups, or work [...] provider. Document Revised: 05/23/2022 Document Reviewed: 05/23/2022 [employer] Patient Education 2022 Friend.ly. 02/18/2023 10:19:12 Steps to Quit Smoking Steps [...] require a prescription. You can also purchase wvqt-muq-qtzabhp medicines. Medicines may have nicotine in them [...] and encouragement. Call telephone quitlines, such as 2-839-ACCG-NOW, reach out to support groups, or work [...] provider. Document Revised: 05/23/2022 Document Reviewed: 05/23/2022 [employer] Patient Education 2022 Friend.ly. 02/18/2023 10:19:04 Major Depressive Disorder, Adult Major [...] things, which may include: Your personality traits. [place] or conditioned behaviors or thoughts or feelings [...] your health care provider. General instructions Take zkeu-uuq-blgusfg and prescription medicines only as told by your health care provider. Eat a healthy diet and get plenty of sleep. Consider joining a support group. Your health care provider may be able to recommend one. Keep all follow-up visits as told by your health care provider. This is important. Where to find more information National [place] on Mental Illness: www.leobardo.org U.[place]. National Grant of Mental Health: www.nimh.nih.gov Contact a health [...] department or: Call your local emergency services (045 in the [place] Call a suicide crisis helpline, such as the National Suicide Prevention Lifeline at or 791 in the [place] This is open 24 hours a day in the [place] Text the Crisis Text Line at 994914 (in the [place] Summary Major depressive disorder [...] provider. Document Revised: 12/25/2021 Document Reviewed: 05/12/2020 [employer] Patient Education 2022 Friend.ly. 02/18/2023 10:19:00 Health Risks of Smoking Health [...] Department of Health and Human Services: www.smokefree.gov [place] Lung Association: www.freedomfromsmoking.org [place] Heart Association: www.heart.org Where to find more [...] provider. Document Revised: 06/03/2022 Document Reviewed: 06/03/2022 TagMii Patient Education 2022 Friend.ly. [facility] 09-29-2022 Evaluation + Plan note Future Scheduled [id number] 09/29/22TSH With T4fr Reflex 09/29/22Comprehensive Metabolic Panel 09/29/22Lipid Panel 09/29/22 [facility] 11-15-2021 Evaluation note Encounter Date Diagnosis [...] treatment plan. Patient left in stable condition [facility] Other 03-03-2022 Evaluation note* Encounter Date Diagnosis [...] of both lower extremities (ICD-10 - Q66.89) [facility] Other Evaluation + Plan note Future Appointments Appointment Date:10/06/2022 09:30:00 AM Scheduled Provider: Location:[facility] Appointment Type:PUL Pulmonary Function Test (FT) Future Scheduled Tests Laboratory* HgbA1c 09/29/22 * TSH With T4fr Reflex 09/29/22 * Comprehensive Metabolic Panel 09/29/22 * Lipid Panel 09/29/22 [facility] Evaluation + Plan note Future Appointments Appointment Date:12/03/2022 10:40:00 AM Scheduled Provider:Clint Ortiz DO Location:[facility] Appointment Type:FM Open Future Scheduled Tests Laboratory* HgbA1c 09/29/22 * TSH With T4fr Reflex 09/29/22 * Comprehensive Metabolic Panel 09/29/22 * Lipid [facility]29[facility] Future App[facility]ments Appointment Date:01/07/2023 10:20:00 AM Scheduled Provider:Clint Ortiz DO Location:[facility] Appointment Type: Open [facility] Evaluation + Plan note Future Appointments Appointment Date:02/18/2023 09:30:00 AM Scheduled Provider: Location:[facility] Appointment Type: Medicare Wellness Initial Appointment Date:02/18/2023 11:00:00 AM Scheduled Provider:Clint Ortiz DO Location:[facility] Appointment Type: Open Future Scheduled Tests Laboratory* T3 Total 02/05/23 * Basic Metabolic Panel 01/07/23 * Magnesium Level 01/07/23 * Thyroid Stimulating Hormone 02/05/23 * Free T4 02/05/23 [facility] Evaluation + Plan note Future Appointments Appointment Date:04/21/2023 08:00:00 AM Scheduled Provider:Clint Ortiz DO Location:[facility] Appointment Type: Open Appointment Date:02/23/2024 11:00:00 AM Scheduled Provider: Location:[facility] Appointment Type:FM Medicare Wellness Subsequent Future Scheduled Tests Laboratory* T3 Total 02/05/23 * Basic Metabolic Panel 01/07/23 * Magnesium Level 01/07/23 * Thyroid Stimulating Hormone 02/05/23 * Free T4 02/05/23 [facility] Evaluation + Plan note Future Appointments Appointment Date:04/21/2023 08:00:00 AM Scheduled Provider:Clint Ortiz DO Location:[facility] Appointment Type: Open Appointment Date:02/23/2024 11:00:00 AM Scheduled Provider: Location:[facility] Appointment Type: Medicare Wellness Subsequent Diagnostic Tests Pending * T3 Total [facility]20[facility] Future Appointments Appointment Date:07/21/2023 08:00:00 AM Scheduled Provider:Clint Ortiz DO Location:[facility] Appointment Type:FM Open Appointment Date:02/23/2024 11:00:00 AM Scheduled Provider: Location:[facility] Appointment Type: Medicare Wellness Subsequent Future Scheduled Tests Laboratory* TSH With T4fr Reflex 05/19/23 [facility] Evaluation + Plan note Future Appointments Appointment Date:07/21/2023 08:00:00 AM Scheduled Provider:Clint Ortiz DO Location:[facility] Appointment Type: Open Appointment Date:02/23/2024 11:00:00 AM Scheduled Provider: Location:[facility] Appointment Type: Medicare Wellness Subsequent [facility] Evaluation + Plan note Future Appointments Appointment Date:10/16/2023 10:40:00 AM Scheduled Provider:Clint Ortiz DO Location:[facility] Appointment Type: Open Appointment Date:02/23/2024 11:00:00 AM Scheduled Provider: Location:[facility] Appointment Type: Medicare Wellness Subsequent Future Scheduled Tests Laboratory* TSH With T4fr Reflex [facility]19[facility] Diagnosis Club foot of both lower extremities- [facility] of both lower extremities- [facility] Diagnosis Club foot of both lower extremities- Primary DJD (degenerative joint disease), ankle and foot, left DJD (degenerative joint disease), ankle and foot, right Pain in both feet Pain in limb [facility] Diagnosis Club foot of both lower extremities- [facility] Narrative - Reported* Type Description Date Medical History chronic depression Medical History PCOS Medical History fibromyalgia Surgical History corrected clubbed feet Surgical History wisdom teeth Surgical History MRSA removal right thigh Surgical History Surgical History DNC x2 Surgical History Cystectomy left ovay Surgical History gall bladder Surgical History right carpal tunnel Surgical History GI scope with 2 biopsy [facility] Other Hospital course Narrative No data available for this section [facility] Hospital Discharge instructions No data available for this section [facility] Progress note No data available for this section [facility] Reason for referral (narrative) Referred by: Clint Ortiz DO [facility] Summary Purpose Family History [...] this section No Family History Records Found Advance Directives No Advanced Directives Records FoundNo Advanced Directives Records FoundNo Advanced Directives Records FoundNo Advanced Directives Records Found Reason for Referral Reason please refer to Vernon mancuso for establishment of care. Hx of bilateral club foot, hx of 2 surgeries during childhood. Diagnosis 1 Club foot of both lo wer extremities (Q66.89) Referral Organization [facility] Referring Provider First Name Cheyenne Referring Provider Last Name Anh Referring Provider Specialty Nurse Pract itioner Referred Organization [facility] Referred Address [address] [place], [place],[address] Referred Provider Specialty Podiatry - S urgical Chiropody Referral Priority Routine General Notes Cheyenne Avila 09:30:01 AM >referral is ready to be sent once office note is completedCheyenne Avila 08/19/2021 08:34:16 AM >note is not completed yet Additional Source Comments INFORMATION SOURCE (unrecogn ized section and content) DATE CREATED AUTHOR 08/27/2021 [facility] DATE CREATED AUTHOR AUTHOR'S ORGANIZ ATION 10/23/2022 [facility] DATE CREATED AUTHOR AUTHOR'S ORGANIZ ATION 08/18/2023 [facility] DATE CREATED AUTHOR AUTHOR'S ORGANIZ ATION 08/22/2023 [facility] REASON FOR VISIT (unrecogniz ed section and content) Reason Comments Patient Request Reason Comments Established Patient Follow Up Pain Patient Care team informatio n (unrecognized section and content) Technical Consultant Relationship Specialty Start Date End Date Clint Ortiz II, DO [address] [place] [place] [address] Referring Family Medicine 07/06/23 Technical Consultant Relationship Specialty Start Date End Date Clint Ortiz DO PCP - General 11/21/22 Technical Consultant Relationship Specialty Start Date End Date Clint Ortiz II, DO [address] [place] [place] [address] Referring Family Medicine 07/06/23 Technical Consultant Relationship Specialty Start Date End Date Clint Ortiz II DO [address] [facility] [place] [address] Referring Family Medicine 07/06/23 Technical Consultant Relationship Specialty Start Date End Date Clint Ortiz II, DO [address] [facility] [place] [address] Referring Family Medicine 07/06/23 Source Comments (unrecognize d section and content) In the event this informatio n is protected by the Federal Confidentiality of Alcohol and Drug Abuse Patient Records regulations: The Federal rules restrict any use of the information to criminally investigate or prosecute any alcohol or drug abuse patient.[facility] the event this information is protected by the Federal Confidentiality of Alcohol and Drug Abuse Patient Records regulations: The Federal rules restrict any use of the information to criminally investigate or prosecute any alcohol or drug abuse patient.[facility] the event this information is protected by the Federal Confidentiality of Alcohol and Drug Abuse Patient Records regulations: The Federal rules restrict any use of the information to criminally investigate or prosecute any alcohol or drug abuse patient.[facility] the event this information is protected by the Federal Confidentiality of Alcohol and Drug Abuse Patient Records regulations: The Federal rules restrict any use of the information to criminally investigate or prosecute any alcohol or drug abuse patient.[facility] Hospital[facility] the event this information is protected by the Federal Confidentiality of Alcohol and Drug Abuse Patient Records regulations: The Federal rules restrict any use of the information to criminally investigate or prosecute any alcohol or drug abuse patient.[facility] FOR RECORDS PERTAINING TO PATIENTS WHO [...] BE BASED ON THE PRIMARY CLINICAL RECORDS. [facility]. provides no warranty or guarantee of the accuracy or completeness of information in this document.
[2023-08-25 03:07] LABS: Progesterone 30.7 ng/mL (.)
== END 2023-08-24 15:00 | disposition home or self-care (01) ==
PROVIDERS: Visit Provider Obstetrics & Gynecology
DX: N92.6 Irregular menstruation, unspecified (principal); Z31.41 Encounter for fertility testing
CPT/HCPCS: 36415; 84144

== ENCOUNTER 2023-09-24 15:20 | Outpatient (OUT) | payer BC, MEDICARE, SELFPAY ==
[2023-09-25 04:09] LABS: Progesterone 25.5 ng/mL (.)
== END 2023-09-24 15:21 | disposition home or self-care (01) ==
LOC: LAB 15:21
PROVIDERS: Visit Provider Obstetrics & Gynecology
DX: N92.6 Irregular menstruation, unspecified (principal); Z31.41 Encounter for fertility testing
CPT/HCPCS: 36415; 84144

== ENCOUNTER 2023-10-26 16:45 | Outpatient (OUT) | payer BC, MEDICARE, SELFPAY ==
[2023-10-28 14:10] LABS: Progesterone 26.5 ng/mL (.)
== END 2023-10-26 16:46 | disposition home or self-care (01) ==
PROVIDERS: PCP Family Medicine Adult Medicine; Visit Provider Obstetrics & Gynecology
DX: N92.6 Irregular menstruation, unspecified (principal); Z31.41 Encounter for fertility testing
CPT/HCPCS: 36415; 84144

== ENCOUNTER 2023-11-24 10:47 | Outpatient (OUT) | payer BC, MEDICARE, SELFPAY | END 2023-11-24 10:48 | disposition home or self-care (01) | LOC: LAB 10:48 | PROVIDERS: PCP Family Medicine Adult Medicine; Visit Provider Obstetrics & Gynecology | DX: N92.6 Irregular menstruation, unspecified (principal); Z31.41 Encounter for fertility testing | CPT/HCPCS: 36415; 84144 ==

== ENCOUNTER 2023-12-24 14:14 | Outpatient (OUT) | payer BC, MEDICARE, SELFPAY ==
[2023-12-26 04:09] LABS: Progesterone 19.3 ng/mL (.)
== END 2023-12-24 14:15 | disposition home or self-care (01) ==
LOC: LAB 14:16
PROVIDERS: PCP Family Medicine Adult Medicine; Visit Provider Obstetrics & Gynecology
DX: N92.6 Irregular menstruation, unspecified (principal); Z31.41 Encounter for fertility testing
CPT/HCPCS: 36415; 84144

== ENCOUNTER 2024-08-29 20:39 | Outpatient (REF) | payer OTHER, MEDICARE, SELFPAY ==
--- OUTSIDE RECORDS SUMMARY | 2024-08-29 20:47 | XMS_ITS | CCD ---
Author Organization [facility] Care Team Providers Care Business Intelligence Analyst Name Role Phone Petros Lion Unavailable WeaverMelissa [...] DR DIDI Macdonald Admitting Unavailabl e [facility], [facility] Primary Care Unavailable NAS ., DR HOWARD Consulting Unavailable NAS ., DR HOWARD Admitting Unavailable NAS ., DR HOWARD Attending Unavailable [facility], [facility] Primary Care Unavailable NAS ., DR HOWARD Consulting Unavailable NAS ., DR HOWARD Admitting Unavailable NAS ., DR HOWARD Attending Unavailable NAS ., DR HOWARD Consulting Unavailable NAS ., DR HOWARD Attending Unavailable [facility], [facility] Primary Care Unavailable NAS ., DR HOWARD Admitting Unavailable NAS ., DR HOWARD Admitting Unavailable NAS ., DR HOWARD Consulting Unavailable [facility], [facility] Primary Care Unavailable NAS ., DR HOWARD Attending Unavailable NAS ., DR HOWARD Admitting Unavailable NAS ., DR HOWARD Consulting Unavailable [facility], [facility] Primary Care Unavailable NAS ., DR HOWARD Attending Unavailable NAS ., DR HOWARD Admitting Unavailable NAS ., DR HOWARD Consulting Unavailable NAS ., DR HOWARD Attending Unavailable [facility], DR RUANO Primary Care Unavailable [facility], [facility] Consulting Unavailable [facility], [facility] Attending Unavailable [facility], [facility] Admitting Unavailable [facility], [facility] Primary Care Unavailable Clint Ortiz Primary Care Physician Unavail able Angel TIAN DO, Robert James Unavailable [phone] Clint Ortiz DO Primary Care Provider [phone] EVELYNE CARCAMO Referring Unavailable EVELYNE CARCAMO Attending Unavailable EVELYNE CARCAMO Referring Unavailable CARLOS ALBERTO, EVELYNE Referring Unavailable EVELYNE CARCAMO Attending Unavailable EVELYNE CARCAMO Attending Unavailable EVELYNE CARCAMO Referring Unavailable LIZZIE MEDINA Primary Care Physician Mikal LOVELL Admitting Unavailable Mikal LOVELL R Attending Unavailable Clint Ortiz Admitting Unavailable Clint Ortiz Attending Unavailable Clint Ortiz Attending Unavailable DO Ho Morales Attending Unavailable Vinnie Romero Attending Unavailable Vinnie Romero Admitting Unavailable Clint Ortiz Admitting Unavailable Clint Ortiz Attending Unavailable Vinnie Romero Attending Unavailable Clint Ortiz Attending Unavailable Clint Ortiz Attending Unavailable Clint Ortiz Attending Unavailable Clint Ortiz Attending Unavailable Clint Ortiz Attending Unavailable Clint Ortiz Attending Unavailable Keaton, Jojo M Attending Unavailable Keaton, Jojo M Attending Unavailable Keaton, Jojo M Attending Unavailable Timmis, Nithya H Referring Unavailable Timmis, Nithya H Attending Unavailable Timmis, Nithya H Admitting Unavailable Carmen, DO Ho S. Referring Unavailable Carmen, DO Ho S. Attending Unavailable Carmen, DO Ho SAnanya Admitting Unavailable Keaton, Jojo M Attending Unavailable MD Alonso Winn Attending Unavailable MD Alonso Winn Admitting Unavailable Clint Ortiz Attending Unavailable LIZZIE MEDINA Attending UnavailiMkal Billy Admitting Unavailable Mikal LOVELL Attending Unavailable MD Alonso Winn Admitting Unavailable MD Alonso Winn Attending Unavailable LIZZIE MEDINA Referring UnavailLIZZIE Woody Attending Unavailabl e Clint Ortiz Attending Unavailable Keaton, Jojo M Attending Unavailable Keaton, Jojo M Attending Unavailable Keaton, Jojo M Attending Unavailable Keaton, Jojo M Attending Unavailable Keaton, Jojo M Attending Unavailable Keaton, Jojo M Attending Unavailable Keaton, Jojo M Attending Unavailable Keaton, Jojo M Attending Unavailable Keaton, Jojo M Attending Unavailable MD Alonso Winn Admitting Unavailable NONE, XXXX Referring Unavailable MD Alonso Winn Attending Unavailable MD Alonso Winn Admitting Unavailable MD Alonso Winn Attending Unavailable MD Alonso Winn Referring Unavailable MD Alonso Winn Admitting Unavailable MD Alonso Winn Consulting Unavailable MD Alonso Winn Attending Unavailable MD Alonso Winn Referring Unavailable Alonso Winn Consulting Unavailable Alonso Winn Consulting Unavailable Generic Provider , No Assigned Pcp Primary Car e Provider Unavailable ALONSO WINN Referring Unavailable GENERIC PROVIDER, NO ASSIGNED PCP Primary Care Unavailable Generic Provider MD, No Assigned Pcp Primary Car e Provider Unavailable JAYCE TREVINO Attending Unavailable GENERIC PROVIDER, NO ASSIGNED PCP Primary Care Unavailable JAYCE TREVINO Referring Unavailable DREW MEDINA-Karen SUMMERSLIZZIE Mainor Attending Unav ailable MINA MEDINALYJuancarlos Hayward Admitting Unav ailable MD Alonso Wnin Attending Unavailable MD Alonso Winn Admitting Unavailable CIERSJIL, MINA Hayward Attending Unav ailable Nithya Ricks Referring Unavailable TimmisNithya H Attending Unavailable Timmis Nithya H Admitting Unavailable CIERSJIL, MINA Hayward Attending Unav ailable CIERSJIL, MINA Hayward Admitting Unav ailable CIERSJIL, MINA Hayward Attending Unav ailable Jojo Pugh Attending Unavailable Jojo Pugh Attending Unavailable Jojo Pugh Attending Unavailable Jamia Winnl Vernon Referring Unavailable Alonso Winn Attending Unavailable Jamia Winnl Vernon Admitting Unavailable TIMMIS, NITHYA H Attending Unavailable MIKAL LOVELL Attending Unavailable Allergies Allergy Classification Reported Allergen(s) Allergy Type Date of Onset Reaction(s) Facility (20 sources) ziprasidone; Translations: [ziprasidone] Drug Allergy 3 anaphylaxis, Anaphylaxis (disorder) [facility] (5 sources) ziprasidone; Translations: [Geodon] Drug Allergy [facility] (1 source) [facility] Drug allergy (disorder) [facility] (4 sources) ziprasidone Drug Allergy [address] [facility] (4 sources) ziprasidone; Translations: [ZIPRASIDONE HCL] Drug Allergy 5 Anaphylaxis [facility] Medications Current Medications Medication Drug Class(es) Dates Sig (Normalized) Sig (Original) acetaminophen 325 mg / oxyCODONE hydrochloride 5 mg oral tablet (2 sources) Opioid Agonist Start: 12-23-2023 End: 12-26-2023 Percocet 5 mg-325 mg oral tablet 1 tab(s), Oral, TID for 3 day(s), 9 tab(s), Refill(s) 0, [facility]/pharmacy #[id number], 152, cm, 12/23/23 14:12:00 EDT, Height/Length Dosing, 88.2, kg, 12/23/23 14:09:00 EDT, Weight Dosing Start Date: 12/23/23 Stop Date: 12/26/23 Status: Ordered Start: 12-23-2023 End: 12-26-2023 take 1 tablet by mouth every six hours as needed PERCOCET 5-325 mg tablet Take 1 tablet by mouth every 6 hours as needed for pain. 0 12/23/2023 12/26/2023 Active [id number] 200 actuat albuterol 0.09 mg/actuat metered dose inhaler (9 sources) beta2-Adrenergic Agonist Start: 07-06-2023 albut samia HFA (PROVENTIL HFA, VENTOLIN HFA) 90 mcg/actuation inhaler Inhale 1 Puff as instructed as needed. 07/06/2023 Active Start: 11-15-2021 take 2 puff(s) by in halation every four to six hours as needed Albuterol Sulfate HFA 108 (90 Base) MCG/ACT 2 puffs as needed Inhalation every 4-6 hours for 14 days Nov, Active Comment on above: Inhale 1 Puff as ins tructed as needed. amitriptyline hydrochloride 10 mg oral tablet (1 source) Tricyclic Antidepressant take 1 tablet by mouth every twenty-four hours Amitriptyline HCl 10 MG 1 tablet at bedtime Orally Once a day Active aspirin 81 mg oral tablet (6 sources) Platelet Aggregation Inhibitor, Nonsteroidal Anti-inflammatory Drug Start: 06-23-19 take 1 mg by mouth once daily Adult Aspirin 81 mg oral tablet, chewable mg tab(s), Chewed, Daily, Refills(s) 0 Start Date: 06/23/24 Status: Ordered atenolol 100 mg oral tablet (9 sources) beta-Adrenergic Stevie Start: 05-23-20 atenolol 100 mg Tab See Instructions, 1 tab(s) by mouth the morning of Cardiac CTA, # 1 tab(s), Refills(s) 0, Pharmacy: [facility]/pharmacy #[id number], 152, cm, 04/28/24 7:53:00 EST, Height/Length Dosing, 92, kg, 04/28/24 7:53:00 EST, Weight Dosing Start Date: 05/23/24 Status: Ordered atomoxetine 40 mg oral capsule (1 source) Norepinephrine Reuptake Inhibitor Start: 10-22-19 take 1 capsule by mouth once daily in the morning Strattera 40 mg Cap 40 mg = 1 cap(s), Oral, qAM, # 30 cap(s), Refills(s) 5, Pharmacy: [facility]/pharmacy #[id number], 158, cm, 09/29/22 9:07:00 EDT, Height/Length Dosing, 92.3, kg, 09/29/22 9:07:00 EDT, Weight Dosing Start Date: 10/21/22 Status: Ordered benzonatate 100 mg oral capsule (1 source) Non-narcotic Antitussive Start: 11-16-19 take 1 capsule by mouth three times daily as needed Tessalon Perles 100 MG 1 capsule as needed Orally Three times a day for 7 days Nov, Active busPIRone hydrochloride 15 mg oral tablet (20 sources) Start: 11-13-19 take 1 tablet by mouth three times daily busPIRone 15 mg Tab 15 mg = 1 tab(s), Oral, TID, # 90 tab(s), Refills(s) 11, Pharmacy: [facility]/pharmacy #[id number], 155, cm, 10/16/23 10:59:00 EDT, Height/Length Dosing, 83.4, kg, 10/16/23 10:59:00 EDT, Weight Dosing Start Date: 11/13/23 Status: Ordered Start: 10-16-2023 take 1 tablet by rossana three times daily busPIRone 15 mg Tab 15 mg = 1 tab(s), Oral, TID, # 90 tab(s), Refills(s) 0, Pharmacy: [facility]/pharmacy #[id number], 155, cm, 10/16/23 10:59:00 EDT, Height/Length Dosing, 83.4, kg, 10/16/23 10:59:00 EDT, Weight Dosing Start Date: 10/16/23 Status: Ordered Start: 09-25-2023 take 1 tablet by rossana twice daily busPIRone 10 mg Tab 10 mg = 1 tab(s), Oral, BID, # 60 tab(s), Refills(s) 11, [id number], cm, 07/21/23 8:08:00 EST, Height/Length Dosing, 86.8, kg, 07/21/23 8:08:00 EST, Weight Dosing Start Date: 09/25/23 Status: Ordered Start: 05-20-2023 take 1 tablet by rossana th every twelve hours busPIRone (BUSPAR) 10 mg tablet Take 1 tablet by mouth every 12 hours. 05/20/2023 Active Start: 04-21-2023 take 1 tablet by rossana th twice daily busPIRone 10 mg Tab 10 mg = 1 tab(s), Oral, BID, # 60 tab(s), Refills(s) 5, [id number], cm, 04/21/23 8:07:00 EST, Height/Length Dosing, 86, kg, 04/21/23 8:07:00 EST, Weight Dosing Start Date: 04/21/23 Status: Ordered Start: 02-18-2023 End: 02-22-2024 take 1 tablet by mouth in the morning busPIRone (Buspar) 5 MG tablet Take 5 mg by mouth in the morning and 5 mg before bedtime. 02/18/2023 02/22/2024 Discontinued Comment on above: Take 1 tablet by rossana th every 12 hours. clonazePAM 1 mg oral tablet (20 sources) Benzodiazepine Start: take 1 tablet by mouth three times daily clonazepam 1 mg Tab 1 mg = 1 tab(s), Oral, TID, # 90 tab(s), Refills(s) 3, [id number], cm, 06/23/24 9:05:00 EST, Height/Length Dosing, 91.4, kg, 06/23/24 9:05:00 EST, Weight Dosing Start Date: 06/23/24 Status: Ordered Start: 05-11-2024 take 1 tablet by rossana th three times daily clonazepam 1 mg Tab 1 mg = 1 tab(s), Oral, TID, # 90 tab(s), Refills(s) 0, Pharmacy: [facility]/pharmacy #[id number], 152, cm, 04/28/24 7:53:00 EST, Height/Length Dosing, 92, kg, 04/28/24 7:53:00 EST, Weight Dosing Start Date: 05/11/24 Status: Ordered Start: 03-22-2024 take 1 tablet by rossana three times daily clonazepam 1 mg Tab 1 mg = 1 tab(s), Oral, TID, # 90 tab(s), Refills(s) 0, Pharmacy: [facility]/pharmacy #[id number], 152, cm, 03/22/24 14:58:00 EDT, Height/Length Dosing, 95, kg, 03/22/24 14:58:00 EDT, Weight Dosing Start Date: 03/22/24 Status: Ordered Start: 03-04-2024 take 1 tablet by rossana twice daily ClonazePAM 0.5 mg Tab 0.5 mg = 1 tab(s), Oral, BID, # 60 tab(s), Refills(s) 1, Pharmacy: [facility]/pharmacy #[id number], 152, cm, 03/04/24 12:01:00 EDT, Height/Length Dosing, 92.5, kg, 03/04/24 12:01:00 EDT, Weight Dosing Start Date: 03/04/24 Status: Ordered DULoxetine 30 mg delayed release oral capsule (15 sources) Serotonin and Norepinephrine Reuptake Inhibitor Start: 06-25-2023 take 1 capsule by mouth twice daily duloxetine 30 mg oral delayed release capsule 30 mg = 1 cap(s), Oral, BID, # 60 cap(s), Refills(s) 2, Pharmacy: [facility]/pharmacy #[id number], 155, cm, 06/25/23 15:06:00 EST, Height/Length Dosing, 87.5, kg, 06/25/23 15:06:00 EST, Weight Dosing Start Date: 06/25/23 Status: Ordered Start: 06-25-2023 take 1 capsule by mo [facility] once daily DULoxetine (CYMBALTA) 30 mg capsule Take 1 capsule by mouth once daily. 06/25/2023 Active Comment on above: Take 1 capsule by mo [facility] once daily. hydrOXYzine hydrochloride 25 mg oral tablet (5 sources) Antihistamine Start: 01-28-20 take 1 tablet by mouth four times daily as needed hydrOXYzine hydrochloride 25 mg Tab 25 mg = 1 tab(s), Oral, QID, PRN for itching, # 40 tab(s), Refills(s) 0, Pharmacy: [facility]/pharmacy #[id number], 152, cm, 01/28/24 15:50:00 EDT, Height/Length Dosing, 91.1, kg, 01/28/24 15:50:00 EDT, Weight Dosing Start Date: 01/28/24 Status: Ordered letrozole 2.5 mg oral tablet (20 sources) Aromatase Inhibitor Start: 07-09-19 take 2 tablets by mouth once daily letrozole (FEMARA) 2.5 mg tablet Take 2 tablets by mouth once daily. 07/09/2023 Active Start: 09-29-2022 Femara 2.5 mg Tab Refills(s) 0 Start Date: 09/29/22 Status: Ordered Comment on above: Take 2 tablets by mo [facility] once daily. levothyroxine sodium 0.05 mg oral tablet (20 sources) l-Thyroxine Start: take 1 tablet by mouth once daily levothyroxine 50 mcg (0.05 mg) Tab 50 mcg = 1 tab(s), Oral, Daily, # 90 tab(s), Refills(s) 4, Pharmacy: [facility]/pharmacy #[id number], 155, cm, 10/16/23 10:59:00 EDT, Height/Length Dosing, 83.4, kg, 10/16/23 10:59:00 EDT, Weight Dosing Start Date: 11/25/23 Status: Ordered Start: 07-21-2023 take 1 tablet by [facility] once daily levothyroxine 50 mcg (0.05 mg) Tab 50 mcg = 1 tab(s), Oral, Daily, # 30 tab(s), Refills(s) 5, Pharmacy: [facility]/pharmacy #[id number], 155, cm, 07/21/23 8:08:00 EST, Height/Length Dosing, 86.8, kg, 07/21/23 8:08:00 EST, Weight Dosing Start Date: 07/21/23 Status: Ordered Start: 05-20-2023 take 1 tablet by mouth once le vothyroxine (SYNTHROID) 75 mcg tablet Take 1 tablet by mouth every afternoon. 05/20/2023 Active Start: 04-21-2023 take 1 tablet by rossana once daily levothyroxine 75 mcg (0.075 mg) Tab 75 mcg = 1 tab(s), Oral, Daily, # 30 tab(s), Refills(s) 5, [id number], cm, 04/21/23 8:07:00 EST, Height/Length Dosing, 86, kg, 04/21/23 8:07:00 EST, Weight Dosing Start Date: 04/21/23 Status: Ordered Start: 01-07-2023 take 1 tablet by [facility] once daily levothyroxine 88 mcg (0.088 mg) Tab 88 mcg = 1 tab(s), Oral, Daily, # 30 tab(s), Refills(s) 5, [id number] 158, cm, 01/07/23 10:49:00 EDT, Height/Length Dosing, 86.3, kg, 01/07/23 10:49:00 EDT, Weight Dosing Start Date: 01/07/23 Status: Ordered Start: 11-21-2022 take 1 tablet by [facility] once daily levothyroxine 100 mcg (0.1 mg) Tab 100 mcg = 1 tab(s), Oral, Daily, # 90 tab(s), Refills(s) 4, [id number], 158, cm, 09/29/22 9:07:00 EDT, Height/Length Dosing, 92.3, kg, 09/29/22 9:07:00 EDT, Weight Dosing Start Date: 11/21/22 Status: Ordered Start: 09-29-2022 take 1 tablet by [facility] once daily levothyroxine 100 mcg (0.1 mg) Tab 100 mcg = 1 tab(s), Oral, Daily, # 30 tab(s), Refills(s) 0 Start Date: 09/29/22 Status: Ordered take 1 tablet by [facility] in the morning levothyroxine (Synthroid, Levoxyl) 100 mcg tablet Take 1 tablet (100 mcg) by mouth early in the morning.. Active take 1 tablet by [facility] once daily in the morning Levothroid 100 MCG 1 tablet in the morning on an empty stomach Orally Once a day Active Comment on above: Take 1 tablet by [facility] every afternoon. LORazepam 0.5 mg oral tablet (7 sources) Benzodiazepine Start: 4 take 1 tablet by mouth once daily at bedtime LORazepam 0.5 mg Tab 0.5 mg = 1 tab(s), Oral, Once a day (at bedtime), # 30 tab(s), Refills(s) 1, Pharmacy: [facility]/pharmacy #[id number], 152, cm, 01/28/24 15:50:00 EDT, Height/Length Dosing, 91.1, kg, 01/28/24 15:50:00 EDT, Weight Dosing Start Date: 01/28/24 Status: Ordered Start: 01-28-2024 take 1 tablet by rossana th every six hours as needed for anxiety LORazepam (Ativan) 0.5 MG tablet Take 0.5 mg by mouth every 6 (six) hours if needed for anxiety 01/28/2024 Active metFORMIN hydrochloride 500 mg oral tablet (20 sources) Biguanide Start: 09-29-2022 take 1 tablet by mouth twice daily metformin 500 mg Tab 500 mg = 1 tab(s), Oral, BID, # 180 tab(s), Refills(s) 4, Pharmacy: [facility]/pharmacy #[id number], 155, cm, 10/16/23 10:59:00 EDT, Height/Length Dosing, 83.4, kg, 10/16/23 10:59:00 EDT, Weight Dosing Start Date: 12/11/23 Status: Ordered take 1 tablet by rossana th every twenty-four hours metFORMIN HCl 500 MG 1 tablet with a meal Orally Once a day Active Comment on above: Take 500 mg by mouth two times a day. permanent handicap placard (20 sources) Start: 3 permanent handicap placard permanent handicap placard, See Instructions, 1 EA, 11, for chronic medical condition, Supply, 158, cm, 01/07/23 10:49:00 EDT, Height/Length Dosing, 86.3, kg, 01/07/23 10:49:00 EDT, Weight Dosing Start Date: 01/07/23 Status: Ordered PNV no.95/ferrous fum/folic ac ( MULTIVITAMINS ORAL) (1 source) Start: 3 take 1 tablet by mouth once daily before mealtime PNV no.95/ferrous fum/folic ac ( MULTIVITAMINS ORAL) Take 1 tablet by mouth once daily. 09/29/2022 Active predniSONE 20 mg oral tablet (2 sources) Start: 4 End: 4 take 1 tablet by mouth once daily predniSONE 20 mg Tab 20 mg = 1 tab(s), Oral, Daily, X 7 day(s), # 7 tab(s), Refills(s) 0, Pharmacy: [facility]/pharmacy #[id number], 152, cm, 01/28/24 15:50:00 EDT, Height/Length Dosing, 91.1, kg, 01/28/24 15:50:00 EDT, Weight Dosing Start Date: 01/28/24 Stop Date: 02/04/24 Status: Ordered Multivitamins (20 sources) Start: 3 take 1 tablet by mouth once daily Multivitamins 1 tab(s), Oral, Daily, Refill(s) 0 Start Date: 09/29/22 Status: Ordered MV-Min-Fe Fum-FA-DHA ( 1 PO) (4 sources) MV-Min- Fe Fum-FA-DHA ( 1 PO) Take 1 tablet by mouth in the morning. Active MV-Min- Fe Fum-FA-DHA ( 1 PO) Take 1 tablet by mouth in the morning. 0 Active Completed/Discontinued Medications Medication Drug Class(es) Dates Sig (Normalized) Sig (Original) Albuterol (Eqv-ProAir HFA) 90 mcg/inh inhalation aerosol (20 sources) Start: 05-04-2023 take 8.5 g by inhalation every six hours Albuterol (Eqv-ProAir HFA) 90 mcg/inh inhalation aerosol 180 mcg, 2 puff(s), Inhalation, q6hr, 8.5 gm, Refill(s) 11, [facility]/pharmacy #[id number], 158, cm, 04/21/23 8:07:00 EST, Height/Length Dosing, 86, kg, 04/21/23 8:07:00 EST, Weight Dosing Start Date: 05/04/23 Status: Ordered Start: 10-29-2022 take 8.5 g by inhala tion every six hours Albuterol (Eqv-ProAir HFA) 90 mcg/inh inhalation aerosol 180 mcg, 2 puff(s), Inhalation, q6hr, 8.5 gm, Refill(s) 11, [facility]/pharmacy #[id number], 158, cm, 09/29/22 9:07:00 EDT, Height/Length Dosing, 92.3, kg, 09/29/22 9:07:00 EDT, Weight Dosing Start Date: 10/29/22 Status: Ordered iohexol (OMNIPaque) 350 mg iodine/mL solution 83 mL (1 source) Start: 07-19-2024 End: 07-19-2024 83 mL, intravenous, Once in imaging, Starting on Thu07/19/24 at 1214, For 1 dose 8 hr methylphenidate hydrochloride 20 mg extended release oral tablet (20 sources) Central Nervous System Stimulant Start: 01-05-2023 End: 02-22-2024 take 1 tablet by mouth in the morning methylphenidate ER (Metadate ER) 20 MG CR tablet Take 20 mg by mouth in the morning. 01/05/2023 02/22/2024 Discontinued Start: 12-03-2022 take 1 tablet by rossana once daily methylphenidate 10 mg oral tablet, extended release 10 mg = 1 tab(s), Oral, Daily, # 30 tab(s), Refills(s) 0, Pharmacy: [facility]/pharmacy #[id number], 158.3, cm, 12/03/22 11:34:00 EDT, Height/Length Dosing, 87.3, kg, 12/03/22 11:34:00 EDT, Weight Dosing Start Date: 12/03/22 Status: Ordered Comment on above: Take 1 tablet by rossana every afternoon. nitroglycerin 0.4 mg/actuat mucosal spray (1 source) Nitrate Vasodilator Start: 07-19-2024 End: 07-19-2024 take 2 spray(s) under the tongue once 2 spray, sublingual, Once, On Thu07/19/24 at 1215, For 1 dose Start: 07-19-2024 End: 07-19-2024 take 2 spray(s) under the tongue once 2 spray, sublingual, Once, On Thu07/19/24 at 1215, For 1 dose Triamcinolone (2 sources) Corticosteroid Start: 08-15-2021 Kenalog -40 mg Aug, 40 mg Problems Active Problems Problem Classification Problem Date Documented Date Episodic/Chronic Administrative/socia l admission (7 sources) Family tension; Translations: [Support system deficit] Onset: 03-04-2024 12-25-2023 Episodic Anxiety disorders (20 sources) Anxiety disorder; Translations: [Anxiety disorder, unspecified] Onset: 09-29-2022 Chronic Asthma (20 sources) Asthma; Translations: [Unspecified asthma, uncomplicated] Onset: 09-29-2022 Chronic Attention-deficit, conduct, and disruptive behavior disorders (20 sources) Attention deficit hyperactivity disorder; Translations: [Attention-deficit hyperactivity disorder, unspecified type] Onset: 09-29-2022 Chronic Cardiac dysrhythmias (2 sources) Supraventricular tachycardia; Translations: [SVT (supraventricular tachycardia) ([facility] 07-28-2024 Chronic Cardiac dysrhythmias (20 sources) Palpitations; Translations: [Tachyarrhythmia ] Onset: 05-22-2022 Episodic E Codes: Natural/environment (1 source) Bite of nonvenomous arthropod; Translations: [Bitten or stung by nonvenomous insect and other nonvenomous arthropods, initial encounter] Onset: 01-28-2024 Episodic Female infertility (10 sources) Female infertility associated with anovulation; Translations: [Anovulation] Onset: 10-16-2022 Resolved: 11-10-2022 Chronic Fluid and electrolyte disorders (20 sources) Hypokalemia; Translations: [Hypokalemia] Onset: 01-07-2023 Episodic Immunizations and screening for infectious disease (2 sources) Encounter for screening for human papillomavirus (HPV); Translations: [Vaccination given] Onset: 09-01-2022 Episodic Mood disorders (20 sources) Mild recurrent major depression; Translations: [Major depressive disorder, recurrent, mild] Onset: 09-29-2022 Resolved: 11-10-2022 Chronic Nonspecific chest pain (6 sources) Chest pain; Translations: [Chest pain, unspecified] Onset: 04-11-2024 Episodic Osteoarthritis (20 sources) Degenerative joint disease of ankle AND/OR foot; Translations: [Primary osteoarthritis, left ankle and foot] Onset: 07-13-2023 07-13-2023 Chronic Other circulatory disease (3 sources) Presence of other cardiac implants and grafts; Translations: [Other specified cardiac device in situ] Onset: 07-28-2024 07-28-2024 Chronic Other congenital anomalies (17 sources) Other specified congenital deformities of feet; 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, unspecified] Onset: 08-15-2021 Resolved: 08-15-2021 Chronic Other congenital anomalies (3 sources) Congenital deformity of foot; 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] Onset: 09-29-2022 Chronic Other connective tissue disease (1 source) H/O: musculoskeletal disease; Translations: [Personal history of other diseases of the musculoskeletal system and connective tissue] Onset: 09-29-2022 Episodic Other connective tissue disease (20 sources) Fibromyalgia; Translations: [Fibromyalgia] Onset: 09-29-2022 Resolved: 11-10-2022 Episodic Other connective tissue disease (12 sources) Pain in both feet; Translations: [Pain in right foot] Onset: 07-13-2023 07-13-2023 Episodic Other connective tissue disease (2 sources) Pain of left lower leg; Translations: [Pain in left lower leg] Onset: 12-21-2023 Episodic Other connective tissue disease (20 sources) Pain in calf 12-23-2023 Episodic Other connective tissue disease (1 source) Peroneal tendinitis of left lower limb; Translations: [Peroneal tendinitis, left leg] 12-25-2023 Episodic Other connective tissue disease (1 source) Pain in left leg; Translations: [Left leg pain] Onset: 12-25-2023 Episodic Other connective tissue disease (1 source) Pain in left lower limb; Translations: [Pain in left leg] 12-25-2023 Episodic Other endocrine disorders (20 sources) Polycystic ovary syndrome; Translations: [Polycystic ovarian syndrome] Onset: 09-29-2022 Chronic Other injuries and conditions due to external causes (1 source) H/O: injury; Translations: [Personal history of other (healed) physical injury and trauma] Onset: 09-29-2022 Episodic Other injuries and conditions due to external causes (20 sources) Insect bite - wound 01-28-2024 Episodic Other nervous system disorders (1 source) 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; Translations: [Personal history of other diseases of the nervous system and sense organs] Onset: 09-29-2022 Episodic Other nervous system disorders (20 sources) H/O: migraine 09-29-2022 Episodic Other non-traumatic joint disorders (1 source) Ankle joint effusion; Translations: [Effusion, unspecified ankle] Onset: 06-24-2023 Episodic Other non-traumatic joint disorders (1 source) Ankle pain; Translations: [Pain in right ankle and joints of right foot] 07-13-2023 Episodic Other nutritional; endocrine; and metabolic disorders (5 sources) Obese class II; Translations: [Body mass index (BMI) 36.0-36.9, adult] Onset: 09-29-2022 Chronic Other nutritional; endocrine; and metabolic disorders (2 sources) Metabolic syndrome X; Translations: [Metabolic syndrome] Onset: 09-29-2022 Chronic Other nutritional; endocrine; and metabolic disorders (20 sources) Insulin resistance 09-29-2022 Chronic Other nutritional; endocrine; and metabolic disorders (6 sources) Obese class I; Translations: [Body mass index (BMI) 34.0-34.9, adult] Onset: 12-03-2022 Chronic Other nutritional; endocrine; and metabolic disorders (1 source) Obesity; Translations: [Other obesity due to excess calories] Onset: 02-18-2023 Chronic Other nutritional; endocrine; and metabolic disorders (20 sources) Body mass index 40+ - severely obese; Translations: [Body mass index (BMI) 40.0-44.9, adult] Onset: 03-04-2024 Chronic Other nutritional; endocrine; and metabolic disorders (2 sources) Body mass index 30+ - obesity; Translations: [Body mass index (BMI) 39.0-39.9, adult] 07-28-2024 Chronic Other nutritional; endocrine; and metabolic disorders (2 sources) Body mass index (BMI) 39.0-39.9, adult; Translations: [Body mass index (BMI) 39.0-39.9, adult] Onset: 07-28-2024 Chronic Other screening for suspected conditions (not mental disorders or infectious disease) (16 sources) Procedure carried out on subject; Translations: [Encounter for screening for lipoid disorders] Onset: 08-26-2022 Episodic Other skin disorders (1 source) Callosity; Translations: [Corns and callosities] Onset: 02-18-2023 Episodic Other skin disorders (20 sources) Henderson - lesion 02-18-2023 Episodic Other skin disorders (20 sources) Swollen ankle region 06-24-2023 Episodic Residual codes; unclassified (1 source) Past history of procedure; Translations: [Other specified postprocedural states] Onset: 06-24-2023 Episodic Residual codes; unclassified (1 source) Patient encounter status; Translations: [Other specified health status] Onset: 06-23-2024 Episodic Screening and history of mental health and substance abuse codes (20 sources) H/O: psychiatric disorder; Translations: [Personal history of other mental and behavioral disorders] Onset: 09-29-2022 Episodic Substance-related disorders (20 sources) Nicotine dependence; Translations: [Nicotine dependence, unspecified, uncomplicated] Onset: 09-29-2022 Chronic Thyroid disorders (20 sources) Non-toxic uninodular goiter; Translations: [Nontoxic single thyroid nodule] Onset: 05-19-2022 Chronic Unclassified (20 sources) Bilateral talipes equinovarus 06-24-2023 Unclassified (20 sources) History of operative procedure on foot 06-24-2023 Unclassified (20 sources) Patient encounter status 07-21-2023 Unclassified (20 sources) Finding related to care and support circumstances and networks 03-04-2024 Unclassified (4 sources) Implantable loop recorder present 07-28-2024 Unclassified (1 source) Supraventricular tachycardia, unspecified (CMS-HCC); Translations: [Supraventricular tachycardia, unspecified (CMS-HCC)] Onset: 07-28-2024 Past or Other Problems Problem Classification Problem Date Documented Date Episodic/Chronic Abdominal pain (4 sources) Pelvic and perineal pain; Translations: [PELVIC AND PERINEAL PAIN] Onset: 06-27-2022 Episodic Diabetes mellitus without complication (4 sources) Prediabetes; Translations: [Prediabetes] Onset: 11-10-2022 Resolved: 11-10-2022 11-10-2022 Episodic Menopausal disorders (1 source) Hormone replacement therapy; Translations: [HORMONE REPLACEMENT THERAPY] Onset: 07-01-2022 Episodic Menstrual disorders (4 sources) Dysmenorrhea; Translations: [Dysmenorrhea, unspecified] Onset: 11-10-2022 Resolved: 11-10-2022 11-10-2022 Chronic Nutritional deficiencies (4 sources) Vitamin D deficiency; Translations: [Vitamin D deficiency, unspecified] Onset: 11-10-2022 Resolved: 11-10-2022 11-10-2022 Chronic Other aftercare (1 source) FDC (current) use of oral hypoglycemic drugs; Translations: [GROUP HOME USE ORAL HYPOGLYCEMIC DX] Onset: 07-01-2022 Episodic Other connective tissue disease (1 source) Other enthesopathies, not elsewhere classified Onset: 08-15-2021 Resolved: 08-15-2021 Episodic Other connective tissue disease (1 source) Pain in right foot; Translations: [Bilateral foot pain] Onset: 07-13-2023 Episodic Other connective tissue disease (1 source) Pain in left foot; Translations: [Bilateral foot pain] Onset: 07-13-2023 Episodic Other endocrine disorders (4 sources) Endocrine disorder, unspecified; Translations: [ENDOCRINE DISORDER UNSPECIFIED] Onset: 10-24-2021 Episodic Other non-traumatic joint disorders (1 source) Pain in left shoulder Onset: 08-15-2021 Resolved: 08-15-2021 Episodic Other non-traumatic joint disorders (1 source) Pain in right ankle and joints of right foot; Translations: [Bilateral ankle pain, unspecified chronicity] Onset: 07-13-2023 Episodic Other non-traumatic joint disorders (1 source) Pain in left ankle and joints of left foot; Translations: [Bilateral ankle pain, unspecified chronicity] Onset: 07-13-2023 Episodic Other nutritional; endocrine; and metabolic disorders (4 sources) Morbid obesity; Translations: [Morbid (severe) obesity due to excess calories] Onset: 11-10-2022 Resolved: 11-10-2022 11-10-2022 Chronic Residual codes; unclassified (4 sources) Procedure and treatment not carried out due to patient leaving prior to being seen by health care provider; Translations: [PROC AND TX NOT CARRIED OUT PT LEAVE] Onset: 05-24-2022 Episodic Unclassified (1 source) Cough R05.9 Onset: 11-15-2021 Resolved: 11-15-2021 Unclassified (1 source) Supraventricular tachycardia, unspecified (CMS-HCC); Translations: [Supraventricular tachycardia, unspecified (CMS-HCC)] Onset: 07-28-2024 Viral infection (1 source) COVID-19 Onset: 11-15-2021 Resolved: 11-15-2021 Results Test Name Value Interpretation Reference Range Facil ity Ambulatory Visit Summaryon 0 08-22-2024 Ambulatory Visit Summary Ambulatory Visit Summary DOMINIQUE LLAMAS :1985 Visit Date:08/22/2024 Ambulatory Visit Instructions Your Diagnosis Depression Obesity, Obesity Your Care Team Attending Physician - CARLOS JARAMILLO Primary Care Physician - CARLOS JARAMILLO This Is Your Medications List semaglutide (Wegovy (0.25 mg dose) subcutaneous solution) Contact prescribing physician if questions or concerns Misc Prescription (permanent handicap placard) albuterol (Albuterol (Eqv-ProAir HFA) 90 mcg/inh inhalation aerosol) aspirin (Adult Aspirin 81 mg oral tablet, chewable) levothyroxine (levothyroxine 50 mcg (0.05 mg) Tab) metformin (metformin 500 mg Tab) multivitamin, ( Multivitamins) [Image Removed: STOP]Stop taking these medications atenolol (atenolol 100 mg Tab) clonazepam (clonazepam 1 mg Tab) Procedures Performed Implantation of insertable loop recorder (04/28/2024), Carpal tunnel, delivery only;, Colonoscopy, Dilation and curettage, diagnostic and/or therapeutic (nonobstetrical), Gallbladder operation. Discharge Vitals Heart Rate (Peripheral) 77 Blood Pressure 128/82 Height 152 cm Height 60 in Weight 93.5 kg Weight 206.132 lb BMI 40.47 What to do next Scheduled Follow-Up Appointments Thursday 10:00 AM EDT With: Jojo Torres Where: [facility] [address] [place] [address] [place] [address] 9:45 AM EDT With: Where: [facility] Thursday 11:00 AM EDT With: Where: [facility] [address] [address] [place] [address]- Medications What How Much When Why Instructions New semaglutide (Wegovy (0.25 mg dose) subcutaneous solution) 0.25 Milligram Subcutaneous Every week Obesity Refills: 1 Pickup at [facility]/pharmacy #[id number] Unchanged albuterol (Albuterol (Eqv-ProAir HFA) 90 mcg/ inh inhalation aerosol) 2 Puffs Inhalation Every 6 hours Contact prescribing physician if questions or concerns Unchanged aspirin (Adult Aspirin 81 mg oral tablet, chewable) Chewed Every day Contact prescribing physician if questions or concerns Unchanged levothyroxine (levothyroxine 50 mcg (0.05 mg) Tab) 1 Tablets By Mouth Every day Hypothyroidism Contact prescribing physician if questions or concerns Unchanged metformin (metformin 500 mg Tab) 1 Tablets By Mouth 2 times a day Contact prescribing physician if questions or concerns Unchanged Misc Prescription (permanent handicap placard) See instructions Clubfoot for chronic medical condition Contact prescribing physician if questions or concerns Unchanged multivitamin, ( Multivitamins) 1 Tablets By Mouth Every day Contact prescribing physician if questions or concerns Pharmacy Information [facility]/pharmacy #[id number]: [address] [place], [place] [id number] [phone] What How Much When Why Comments Stop Taking atenolol (atenolol 100 mg Tab) See instructions 1 tab(s) by mouth the morning of Cardiac CTA Stop Taking clonazepam (clonazepam 1 mg Tab) 1 Tablets By Mouth 3 times a day Anxiety Allergies Geodon (Anaphylaxis) Problems Ongoing - Any problem that you are currently receiving treatment for. ADHD Ankle swelling Anxiety Asthma Bilateral club feet BMI 40.0-44.9, adult Henderson of foot Depression Fibromyalgia History of foot surgery History of migraine History of posttraumatic stress disorder (PTSD) Hypokalemia Hypothyroidism Insect bites Insulin resistance Mild recurrent major depression Obesity PCOS (polycystic ovarian syndrome) Screening for diabetes mellitus Sinus tachycardia Smoker Stress at home Thyroid nodule Historical - Any problem that you are no longer receiving treatment for. Pain of left calf Patient Survey You may receive a survey via text or e-mail asking about your office visit. Please share your experience with us by completing your survey. We appreciate your feedback and thank you for choosing us for your care. [facility] Family Medicine Office/Clini c Noteon 08-22-2024 Family Medicine Office/Clinic Note Family Medicine Office/Clinic Note Chief Complaint 2 month medication f/u HPI Staff Follow up for Mental Status: Medication adherence- Yes, takes medication as prescribed MEdication refill needed: yes Suicidal thoughts- some Most recent BOBBY:8 Most recent PHQ:2 History of Present Illness Dominique is a 39 year old female who presents for a routine follow up. She stopped her clonazepam TID and she is much more awake during the day. She has some situational anxiety related to her son - he is 21 and he recently ran away again saying she kicked him out. The son is going to therapy only when it's convenient for him. He makes up lies about Dominique and her and posts it on social media. He likes to claim people are abusing him. Her son is dillard and he likes to say Dominique does not approve of his life - she has no problem with his lifestyle. She does still have clonazepam at home and will use it PRN. She did see Dr Trevino at for EP. She has a loop recorder in place. She reports Dr Trevino is planning some type of cardiac testing to determine her underlying cardiac abnormality. Weight: her weight has been pretty stable recently, however she is obese. She remains around 200lbs. She did take Adipex in the past and this was effective however she has a cardiac issue and is concerned about going back on it. I am going to try to get her approved for Wegovy - if this does not work, I will try the adipex again. Her goal is to lose 30lbs. Staff HPI reviewed and accurate. Review of Systems PHQ Score Initial Depression Screen Score: 2 SCORE Physical Exam Vitals & Measurements HR: 77(Peripheral) BP: 128/82 SpO2: 100% HT: 60 in HT: 152 cm WT: 93.5 kg WT: 206.132 lb BMI: 40.47 General: alert, no acute distress ENMT: TM's clear, oral mucosa moist, no pharyngeal erythema or exudate Cardiovascular: regular rate and rhythm, normal peripheral perfusion Respiratory: Lungs CTA, respirations non labored Extremities: no deformity, no trauma Neurological: oriented x 4, LOC appropriate for age, CN II-XII intact, motor strength equal & normal bilaterally, sensation equal & normal bilaterally, speech normal Assessment/Plan 1. Depression (F32.A: Depression, unspecified) Take clonazepam as needed for situational depression. 2. Obesity, (E66.9: Obesity, unspecified) wegovy as prescribed fu 3-6m Obesity Ordered: semaglutide, 0.25 mg, SubCutaneous, qWeek, # 2 mL, Refills(s) 1, Pharmacy: [facility]/pharmacy #[id number], 152, cm, 08/22/24 10:38:00 EDT, Height/Length Dosing, 93.5, kg, 08/22/24 10:38:00 EDT, Weight Dosing Follow-up No qualifying data available Problem List/Past Medical History Ongoing ADHD Ankle swelling Anxiety Asthma Bilateral club feet BMI 40.0-44.9, adult Henderson of foot Depression Fibromyalgia History of foot surgery History of migraine History of posttraumatic stress disorder (PTSD) Hypokalemia Hypothyroidism Insect bites Insulin resistance Mild recurrent major depression Obesity PCOS (polycystic ovarian syndrome) Screening for diabetes mellitus Sinus tachycardia Smoker Stress at home Thyroid nodule Historical Pain of left calf Procedure/Surgical History Implantation of insertable loop recorder (04/28/2024), Carpal tunnel, delivery only;, Colonoscopy, Dilation and curettage, diagnostic and/or therapeutic (nonobstetrical), Gallbladder operation. Medications Adult Aspirin 81 mg oral tablet, chewable, Chewed, Daily Albuterol (Eqv-ProAir HFA) 90 mcg/inh inhalation aerosol, 180 mcg= 2 puff(s), Inhalation, q6hr, 11 refills Atropine Abboject 0.1 mg/mL Injection, 0.25 mg= 2.5 mL, IV Push, As Directed, PRN DOBUTamine additive 100 mg [5 mcg/kg/min] + Sodium Chloride 0.9% intravenous solution 100 mL Fluzone TIV [place] [id number], 0.5 mL, IntraMuscular, Once Fluzone TIV PF [id number], 0.5 mL, IntraMuscular, Once levothyroxine 50 mcg (0.05 mg) Tab, 50 mcg= 1 tab(s), Oral, Daily, 4 refills metformin 500 mg Tab, 500 mg= 1 tab(s), Oral, BID, 4 refills metoprolol 1 mg/mL Inj, 5 mg= 5 mL, IV Push, Once, PRN perflutren (protein-type A microspheres) intravenous suspension, 1.3 mL, IV Push, Once, PRN permanent handicap placard, See Instructions, 11 refills Multivitamins, 1 tab(s), Oral, Daily Sodium Chloride 0.9% IV Daniella 250 mL bag, 250 mL, IV, As Directed Jimmyy (0.25 mg dose) subcutaneous solution, 0.25 mg, SubCutaneous, qWeek, 1 refills Allergies Geodon (Anaphylaxis) Social History Alcohol - Denies Alcohol Use, 02/18/2023 Current. Liquor. 1-2 times per year., 04/24/2024 Substance Abuse - Denies Substance Abuse, 02/18/2023 Current. Marijuana. 3-5 times per week. Previous treatment: None., 04/24/2024 Tobacco Former smoker, quit more than 30 days ago Tobacco Use:., 08/22/2024 Family History Depression: Sister. Hypertension: Mother, Father and Sister. Hypothyroidism: Grandparent. Primary malignant neoplasm of female breast: Grandparent. Primary malignant neopl (more content not included)... Normal [facility] Comment on above: Result Comment: Elec tronically Signed By: CARLOS JARAMILLO\.br\Date and Time Signed: 08/22/24 11:01 EDT US Thyroidon 08-19-2024 US Thyroid Exam Date/Time: 08/19/2024 13:51 EST Reason for Exam: E04.2 Report IMPRESSION: Thyroid nodules, unchanged. HISTORY: E04.2. TECHNIQUE: Sonography and Doppler imaging of the thyroid was performed. Images were obtained and stored in a permanent archive.\[id number]\ COMPARISON: 08/20/2023. RESULT: RIGHT LOBE: 5.7 cm x 2.2 cm x 2.0 cm with a volume of 12.8 cm3; heterogeneous echogenicity, expected vascular flow LEFT LOBE: 4.9 cm x 1.6 cm x 1.5 cm with a volume of 6.1 cm3; heterogeneous echogenicity, expected vascular flow ISTHMUS: 0.5 cm. Nodules: 1.7 cm TR 3 nodule right thyroid, unchanged. 1.1 cm TR 3 nodule right thyroid, unchanged. 1.8 cm TR 3 nodule right mid thyroid, essentially unchanged. Subcentimeter 0.9-0.8 cm TR 4 nodules left thyroid, unchanged. Lymph nodes: No enlarged cervical lymph nodes. Note, ACR TI-RADS is a reporting system for thyroid nodules on ultrasound proposed by the [employer] (ACR) Ordering Provider: Nithya Ricks FINAL REPORT Dictated: 08/19/2024 3:15 pm Alvin Jones MD Signed (Electronic Signature): 08/19/2024 3:15 pm Signed by: Alvin Jones MD Transcribed by: JOVANNY Technologist: RUBI Weir [facility] ECG 12 lead (Clinic Performe d)on 07-28-2024 EKG performed today shows sinus rhythm at a rate of 94 bpm QRS duration 74 ms QT corrected 487 ms. No evidence of preexcitation from baseline EKG. [facility] Work Phone: [facility] Work Phone: CT ANGIO CORONARY ART WITH H EARTFLOW IF SCORE >30%on 07-19-2024 CT ANGIO CORONARY ART WITH HEARTFLOW IF SCORE >30% Interpreted By: Dieter Ulloa, ADDENDUM: Technical: The following is to serve as an over-read for a contrast-enhanced cardiac CT, to evaluate the extravascular structures. Contiguous axial CT sections are performed from level the vira to the upper abdomen following the uneventful administration of 75 cc of Omnipaque 350. Findings: The visualized portions of both lungs are clear. There is no sign of pathologic lymph node enlargement. There is no pericardial or pleural effusion. Images through the upper abdomen are unremarkable. The visualized osseous structures are intact. Impression: The extravascular structures have an unremarkable CT appearance. Signed by: Dieter Ulloa 07/19/2024 3:07 PM -------- ORIGINAL REPORT -------- Dictation workstation: [id number] Interpreted By: Dieter Silva, STUDY: CT ANGIO CORONARY ART WITH HEARTFLOW IF SCORE >30%; 07/19/2024 12:14 pm INDICATION: Signs/Symptoms:CHES T PAIN. COMPARISON: None. ACCESSION NUMBER(S): [id number] ORDERING CLINICIAN: ALONSO WINN TECHNIQUE: Using multi-detector CT technology, Christelle 64-slice scanner, axial, sequential imaging with retrospective gating was performed of the chest following the intravenous administration of contrast material. A low-osmolar contrast agent was used 75 ml of Omnipaque 350. Using prospective ECG gating, CT scan of the coronary arteries was performed without intravenous contrast. Coronary calcium scoring was performed according to the method of Agatston. The patient was premedicated with atenolol and 0.4 mg sublingual nitroglycerin per protocol for heart rate control and coronary dilation, respectively. For optimization of anatomic evaluation, multiplanar reconstruction, maximum intensity projections, and advanced 3-D off-line postprocessing were performed on a dedicated stand-alone workstation under the direct supervision of the interpreting physician. CT Dose-Length Product (DLP): 1093 mGy/cm CT Dose Reduction Employed: Yes iterative reconstruction FINDINGS: The left main is normal sized vessel that bifurcates into the LAD and circumflex. There is no significant atherosclerotic change or stenotic disease. LEFT ANTERIOR DESCENDING ARTERY: The LAD is a normal size vessel that wraps around the apex. Normal. LAD gives rise to 2 acute diagonal branches. D1: Normal. D2: Normal. There is no significant atherosclerotic change or stenotic disease. Ramus: Normal. LEFT CIRCUMFLEX ARTERY: The LCfx is a normal size vessel, which is non-dominant. Normal. LCfx gives rise to 1 obtuse marginal branches. OM1 normal. There is no significant atherosclerotic change or stenotic disease. RIGHT CORONARY ARTERY: The RCA is a normal size vessel, which is dominant . It gives rise to a conus branch, rosie branch, and 1 acute marginal branches. In its distal segment it bifurcates into the PDA and PV branch. There is no significant atherosclerotic change or stenotic disease. Right PDA normal. Right PLV normal. Coronary artery calcium score 0. CARDIAC CHAMBERS: The cardiac chambers demonstrate normal atrioventricular and ventriculoarterial concordance, and systemic and pulmonary venous return. LEFT VENTRICLE: Normal size End diastolic volume 114 ml, 58 ml/m2 LEFT VENTRICLE MASS: 90 gm, 46 gm/m2 RIGHT VENTRICLE: Normal size End diastolic volume 115 ml, 58 ml/m2 LEFT ATRIUM: Normal size End systolic volume 79 ml, 40 ml/m2 RIGHT ATRIUM: Normal size End systolic volume 87 ml, 44 ml/m2 INTERATRIAL SEPTUM: Intact. AORTIC VALVE: The aortic valve is trileaflet in morphology. No calcifications. MITRAL VALVE: No thickening/calcific ation. THORACIC AORTA: The visualized thoracic aorta is normal in course, caliber, and contour. There is no acute aortic pathology, such as dissection, intramural hematoma, or contained rupture. The aortic arch is not included on this examination. PERICARDIUM: There is no pericardial effusion of thickening. IMPRESSION: 1. Normal coronary anatomy without evidence of atherosclerotic changes or stenotic disease. 2. Coronary artery calcium score 0. [employer]: Dr. Dieter Silva, Date: 07/19/2024 3:01 pm Signed by: Dieter Silva 07/19/2024 3:02 PM Dictation workstation: [id number] [facility] Comment on above: Order Comment: This exam requires labs (CREATININE/eGFR calculation) for the following patients: CTA Heart and Coronary arter ies WO and W contrast Debra 07-19-2024 Addendum by Jed Ulloa MD on 07/19/2024 3:07 PM EST Interpreted By: Dieter Ulloa, ADDENDUM: Technical: The following is to serve as an over-read for a contrast-enhanced cardiac CT, to evaluate the extravascular structures. Contiguous axial CT sections are performed from level the vira to the upper abdomen following the uneventful administration of 75 cc of Omnipaque 350. Findings: The visualized portions of both lungs are clear. There is no sign of pathologic lymph node enlargement. There is no pericardial or pleural effusion. Images through the upper abdomen are unremarkable. The visualized osseous structures are intact. Impression: The extravascular structures have an unremarkable CT appearance. Signed by: Dieter Ulloa 07/19/2024 3:07 PM -------- ORIGINAL REPORT -------- Dictation workstation: [id number] [facility] Work Phone: 1. Normal coronary anatomy without evidence of atherosclerotic changes or stenotic disease. 2. Coronary artery calcium score 0. [employer]: Dr. Dieter Silva, Date: 07/19/2024 3:01 pm Signed by: Dieter Silva 07/19/2024 3:02 PM Dictation workstation: [id number] Interpreted By: Dieter Silva, STUDY: CT ANGIO CORONARY ART WITH HEARTFLOW IF SCORE >30%; 07/19/2024 12:14 pm INDICATION: Signs/Symptoms:CHES T PAIN. COMPARISON: None. ACCESSION NUMBER(S): [id number] ORDERING CLINICIAN: ALONSO WINN TECHNIQUE: Using multi-detector CT technology, Christelle 64-slice scanner, axial, sequential imaging with retrospective gating was performed of the chest following the intravenous administration of contrast material. A low-osmolar contrast agent was used 75 ml of Omnipaque 350. Using prospective ECG gating, CT scan of the coronary arteries was performed without intravenous contrast. Coronary calcium scoring was performed according to the method of Agatston. The patient was premedicated with atenolol and 0.4 mg sublingual nitroglycerin per protocol for heart rate control and coronary dilation, respectively. For optimization of anatomic evaluation, multiplanar reconstruction, maximum intensity projections, and advanced 3-D off-line postprocessing were performed on a dedicated stand-alone workstation under the direct supervision of the interpreting physician. CT Dose-Length Product (DLP): 1093 mGy/cm CT Dose Reduction Employed: Yes iterative reconstruction FINDINGS: The left main is normal sized vessel that bifurcates into the LAD and circumflex. There is no significant atherosclerotic change or stenotic disease. LEFT ANTERIOR DESCENDING ARTERY: The LAD is a normal size vessel that wraps around the apex. Normal. LAD gives rise to 2 acute diagonal branches. D1: Normal. D2: Normal. There is no significant atherosclerotic change or stenotic disease. Ramus: Normal. LEFT CIRCUMFLEX ARTERY: The LCfx is a normal size vessel, which is non-dominant. Normal. LCfx gives rise to 1 obtuse marginal branches. OM1 normal. There is no significant atherosclerotic change or stenotic disease. RIGHT CORONARY ARTERY: The RCA is a normal size vessel, which is dominant . It gives rise to a conus branch, rosie branch, and 1 acute marginal branches. In its distal segment it bifurcates into the PDA and PV branch. There is no significant atherosclerotic change or stenotic disease. Right PDA normal. Right PLV normal. Coronary artery calcium score 0. CARDIAC CHAMBERS: The cardiac chambers demonstrate normal atrioventricular and ventriculoarterial concordance, and systemic and pulmonary venous return. LEFT VENTRICLE: Normal size End diastolic volume 114 ml, 58 ml/m2 LEFT VENTRICLE MASS: 90 gm, 46 gm/m2 RIGHT VENTRICLE: Normal size End diastolic volume 115 ml, 58 ml/m2 LEFT ATRIUM: Normal size End systolic volume 79 ml, 40 ml/m2 RIGHT ATRIUM: Normal size End systolic volume 87 ml, 44 ml/m2 INTERATRIAL SEPTUM: Intact. AORTIC VALVE: The aortic valve is trileaflet in morphology. No calcifications. MITRAL VALVE: No thickening/calcific ation. THORACIC AORTA: The visualized thoracic aorta is normal in course, caliber, and contour. There is no acute aortic pathology, such as dissection, intramural hematoma, or contained rupture. The aortic arch is not included on this examination. PERICARDIUM: There is no pericardial effusion of thickening. [facility] Dieter Silva DO / Jed Ulloa MD - 07/19/2024 Interpreted By: Dieter Silva, STUDY: CT ANGIO CORONARY ART WITH HEARTFLOW IF SCORE >30%; 07/19/2024 12:14 pm INDICATION: Signs/Symptoms:CHES T PAIN. COMPARISON: None. ACCESSION NUMBER(S): [id number] ORDERING CLINICIAN: ALONSO WINN TECHNIQUE: Using multi-detector CT technology, Christelle 64-slice scanner, axial, sequential imaging with retrospective gating was performed of the chest following the intravenous administration of contrast material. A low-osmolar contrast agent was used 75 ml of Omnipaque 350. Using prospective ECG gating, CT scan of the coronary arteries was performed without intravenous contrast. Coronary calcium scoring was performed according to the method of Agatston. The patient was premedicated with atenolol and 0.4 mg sublingual nitroglycerin per protocol for heart rate control and coronary dilation, respectively. For optimization of anatomic evaluation, multiplanar reconstruction, maximum intensity projections, and advanced 3-D off-line postprocessing were performed on a dedicated stand-alone workstation under the direct supervision of the interpreting physician. CT Dose-Length Product (DLP): 1093 mGy/cm CT Dose Reduction Employed: Yes iterative reconstruction FINDINGS: The left main is normal sized vessel that bifurcates into the LAD and circumflex. There is no significant atherosclerotic change or stenotic disease. LEFT ANTERIOR DESCENDING ARTERY: The LAD is a normal size vessel that wraps around the apex. Normal. LAD gives rise to 2 acute diagonal branches. D1: Normal. D2: Normal. There is no significant atherosclerotic change or stenotic disease. Ramus: Normal. LEFT CIRCUMFLEX ARTERY: The LCfx is a normal size vessel, which is non-dominant. Normal. LCfx gives rise to 1 obtuse marginal branches. OM1 normal. There is no significant atherosclerotic change or stenotic disease. RIGHT CORONARY ARTERY: The RCA is a normal size vessel, which is dominant . It gives rise to a conus branch, rosie branch, and 1 acute marginal branches. In its distal segment it bifurcates into the PDA and PV branch. There is no significant atherosclerotic change or stenotic disease. Right PDA normal. Right PLV normal. Coronary artery calcium score 0. CARDIAC CHAMBERS: The cardiac chambers demonstrate normal atrioventricular and ventriculoarterial concordance, and systemic and pulmonary venous return. LEFT VENTRICLE: Normal size End diastolic volume 114 ml, 58 ml/m2 LEFT VENTRICLE MASS: 90 gm, 46 gm/m2 RIGHT VENTRICLE: Normal size End diastolic volume 115 ml, 58 ml/m2 LEFT ATRIUM: Normal size End systolic volume 79 ml, 40 ml/m2 RIGHT ATRIUM: Normal size End systolic volume 87 ml, 44 ml/m2 INTERATRIAL SEPTUM: Intact. AORTIC VALVE: The aortic valve is trileaflet in morphology. No calcifications. MITRAL VALVE: No thickening/calcific ation. THORACIC AORTA: The visualized thoracic aorta is normal in course, caliber, and contour. There is no acute aortic pathology, such as dissection, intramural hematoma, or contained rupture. The aortic arch is not included on this examination. PERICARDIUM: There is no pericardial effusion of thickening. IMPRESSION: 1. Normal coronary anatomy without evidence of atherosclerotic changes or stenotic disease. 2. Coronary artery calcium score 0. [employer]: Dr. Dieter Silva, Date: 07/19/2024 3:01 pm Signed by: Dieter Silva 07/19/2024 3:02 PM Dictation workstation: [id number] [facility] Work Phone: Radiology Study observation (narrative) [facility] Work Phone: CTA Heart and Coronary arter ies WO and W contrast IVOrdered By: Jed Ulloa on 07-19-2024 [facility] Work Phone: CBC w/ Auto Diffon 5 Basophils/100 WBC (Bld) 0.4 % Normal 0.0-2.0 [facility] Comment on above: Performed By: #### 2 [id number] #### [facility] [address] [place] [address] Basophils/Leukocytes Auto (Bld) [Pure # fraction] 0.0 E9/L Normal 0.0-0.2 [facility] Comment on above: Performed By: #### 2 [id number] #### [facility] [address] [place] [address] Eosinophils (Bld) [#/Vol] 0.2 E9/L Normal 0.0-0.5 [facility] Comment on above: Performed By: #### 2 [id number] #### [facility] [address] [place] [address] Eosinophils/100 WBC (Bld) 2.9 % Normal 0.0-8.0 [facility] Comment on above: Performed By: #### 2 [id number] #### [facility] [address] [place] [address] Erythrocyte distribution width (RBC) [Ratio] 13.4 % Normal 10.9-14.2 [facility] Comment on above: Performed By: #### 2 [id number] #### [facility] [address] [place] [address] Hematocrit (Bld) [Volume fraction] 44.4 % Normal 34.0-46.0 [facility] Comment on above: Performed By: #### 2 [id number] #### [facility] [address] [place] [address] Hemoglobin (Bld) [Mass/Vol] 15.2 g/dL Normal 12.0-16.0 [facility] Comment on above: Performed By: #### 2 [id number] #### [facility] [address] [place] [address] Lymphocytes (Bld) [#/Vol] 2.7 E9/L Normal 1.0-4.0 [facility] Comment on above: Performed By: #### 2 [id number] #### [facility] [address] [place] [address] Lymphocytes/100 WBC (Bld) 34.3 % Normal 14.0-50.0 [facility] Comment on above: Performed By: #### 2 [id number] #### [facility] [address] [place] [address] MCH (RBC) [Entitic mass] 29.7 pg Normal 27.0-34.0 [facility] Comment on above: Performed By: #### 2 [id number] #### [facility] [address] [place] [address] MCHC (RBC) [Mass/Vol] 34.2 g/dL Normal 31.4-36.0 [facility] Comment on above: Performed By: #### 2 [id number] #### [facility] [address] [place] [address] MCV (RBC) [Entitic vol] 86.6 fL Normal 80.0-100.0 [facility] Comment on above: Performed By: #### 2 [id number] #### [facility] [address] [place] [address] Monocytes (Bld) [#/Vol] 0.3 E9/L Normal 0.2-1.0 [facility] Comment on above: Performed By: #### 2 [id number] #### [facility] [address] [place] [address] Neutrophils (Bld) [#/Vol] 4.6 E9/L Normal 2.0-7.5 [facility] Comment on above: Performed By: #### 2 [id number] #### [facility] [address] [place] [address] Neutrophils/100 WBC (Bld) 58.3 % Normal 36.0-75.0 [facility] Comment on above: Performed By: #### 2 [id number] #### [facility] [address] [place] [address] Platelet mean volume (Bld) [Entitic vol] 8.9 fL Normal 6.4-10.8 [facility] Comment on above: Performed By: #### 2 [id number] #### [facility] [address] [place] [address] Platelets (Bld) [#/Vol] 259.0 E9/L Normal 150.0-500.0 [facility] Comment on above: Performed By: #### 2 [id number] #### [facility] [address] [place] [address] RBC (Bld) [#/Vol] 5.1 E12/L Normal 4.3-5.9 [facility] Comment on above: Performed By: #### 2 [id number] #### [facility] [address] [place] [address] WBC corrected for nucl RBC Auto (Bld) [#/Vol] 7.8 E9/L Normal 4.0-11.0 [facility] Comment on above: Performed By: #### 2 [id number] #### [facility] [address] [place] [address] CHEMISTRYOrdered By: SYSTEM SYSTEM on 07-07-2024 Albumin [Mass/Vol] 4.3 g/dL Normal 3.3 - 5.0 gm/dL R emisol Chem Albumin/Globulin [Mass ratio] 1.6 {ratio} Normal 1.1 - 2.2 Remisol Chem ALP [Catalytic activity/Vol] 49 [iU]/d Normal 21 - 98 Int._Unit/L Remisol Chem ALT No additional P-5'-P [Catalytic activity/Vol] 16 [iU]/d Normal 6 - 46 Int._Unit/L Remisol Chem Anion gap [Moles/Vol] 12 mmol/L Normal 6 - 16 mEq/L Remisol Chem AST [Catalytic activity/Vol] 13 [iU]/d Normal 5 - 43 Int._Unit/L Remisol Chem Bilirubin [Mass/Vol] 1.1 mg/dL Normal 0.0 - 1.1 mg/dL Remisol Chem Calcium [Mass/Vol] 9.0 mg/dL Normal 8.9 - 11.1 mg/dL Remisol Chem Chloride [Moles/Vol] 106 mmol/L Normal 101 - 111 mmol/ L Remisol Chem CO2 [Moles/Vol] 22 mmol/L Normal 21 - 31 mmol/L Remis ol Chem Cobalamin (Vitamin B12) [Mass/Vol] 318 pg/mL Normal 50 - 1500 pg/mL Remisol Chem Creatinine [Mass/Vol] 0.7 mg/dL Normal 0.5 - 1.3 mg/dL Remisol Chem eGFR 113 mL/min/1.73 m2 Normal >=59mL/mi n/1.73 m2 Remisol Chem Globulin (S) [Mass/Vol] 2.7 g/dL Normal 1.4 - 4.0 gm/dL Remisol Chem Glucose [Mass/Vol] 135 mg/dL Normal 55 - 199 mg/dL Re misol Chem Iron [Mass/Vol] 125 ug/dL Normal 35 - 153 mcg/dL Stefan daniella Chem Iron binding capacity [Mass/Vol] 386 ug/dL Normal 250 - 400 mcg/dL Remisol Lacy m Potassium [Moles/Vol] 3.6 mmol/L Normal 3.5 - 5.3 mmol/L Remisol Chem Protein [Mass/Vol] 7.0 g/dL Normal 6.0 - 7.8 gm/dL R emisol Chem Sodium [Moles/Vol] 136 mmol/L Normal 135 - 145 mmol/L Remisol Chem Transferrin [Mass/Vol] 276 mg/dL Normal 200 - 370 mg/dL Remisol Chem TSH Qn 0.95 m[IU]/L Normal 0.34 - 5.60 mcIU/mL Remisol Chem Urea nitrogen [Mass/Vol] 12 mg/dL Normal 5 - 21 mg/dL Remisol Chem Urea nitrogen/Creatinine [Mass ratio] 17 mg/mg Normal 10 - 20 Remisol Chem CMPon 07-07-2024 Albumin [Mass/Vol] 4.3 g/dL Normal 3.3-5.0 [facility] Comment on above: Performed By: #### 2 [id number] #### [facility] [address] [place] [address] Albumin/Globulin (S) [Mass conc ratio] 1.6 Normal 1.1-2.2 [facility] Comment on above: Performed By: #### 2 [id number] #### [facility] [address] [place] [address] ALP [Catalytic activity/Vol] 49 Int._Unit/L Normal 21-98 [facility] Comment on above: Performed By: #### 2 [id number] #### [facility] [address] [place] [address] ALT No additional P-5'-P [Catalytic activity/Vol] 16 Int._Unit/L Normal 6-46 [facility] Comment on above: Performed By: #### 2 [id number] #### [facility] [address] [place] [address] Anion gap [Moles/Vol] 12 mmol/L Normal 6-16 [facility] Comment on above: Performed By: #### 2 [id number] #### [facility] [address] [place] [address] AST [Catalytic activity/Vol] 13 Int._Unit/L Normal 5-43 [facility] Comment on above: Performed By: #### 2 [id number] #### [facility] [address] [place] [address] Bilirubin [Mass/Vol] 1.1 mg/dL Normal 0.0-1.1 [facility] Comment on above: Performed By: #### 2 [id number] #### [facility] [address] [place] [address] Calcium [Mass/Vol] 9.0 mg/dL Normal 8.9-11.1 [facility] Comment on above: Performed By: #### 2 [id number] #### [facility] [address] [place] [address] Chloride [Moles/Vol] 106 mmol/L Normal 101-111 [facility] Comment on above: Performed By: #### 2 [id number] #### [facility] [address] [place] [address] CO2 [Moles/Vol] 22 mmol/L Normal 21-31 [facility] Comment on above: Performed By: #### 2 [id number] #### [facility] [address] [place] [address] Creatinine [Mass/Vol] 0.7 mg/dL Normal 0.5-1.3 [facility] Comment on above: Performed By: #### 2 [id number] #### [facility] [address] [place] [address] Globulin (S) [Mass/Vol] 2.7 g/dL Normal 1.4-4.0 [facility] Comment on above: Performed By: #### 2 [id number] #### [facility] [address] [place] [address] Glucose [Mass/Vol] 135 mg/dL Normal 55-199 [facility] Comment on above: Performed By: #### 2 [id number] #### [facility] [address] [place] [address] Potassium [Moles/Vol] 3.6 mmol/L Normal 3.5-5.3 [facility] Comment on above: Performed By: #### 2 [id number] #### [facility] [address] [place] [address] Protein [Mass/Vol] 7.0 g/dL Normal 6.0-7.8 [facility] Comment on above: Performed By: #### 2 [id number] #### [facility] [address] [place] [address] Sodium [Moles/Vol] 136 mmol/L Normal 135-145 [facility] Comment on above: Performed By: #### 2 [id number] #### [facility] [address] [place] [address] Urea nitrogen [Mass/Vol] 12 mg/dL Normal 5-21 [facility] Comment on above: Performed By: #### 2 [id number] #### [facility] [address] [place] [address] Urea nitrogen/Creatinine [Mass ratio] 17 No Units Normal 10-20 [facility] Comment on above: Performed By: #### 2 [id number] #### [facility] [address] [place] [address] HEMATOLOGYOrdered By: SYSTEM SYSTEM on 07-07-2024 Basophils/100 WBC (Bld) 0.4 % Normal 0.0 - 2.0 % Remisol Heme Basophils/Leukocytes Auto (Bld) [Pure # fraction] 0.0 E9/L Normal 0.0 - 0.2 E9/L Remisol Heme Eosinophils (Bld) [#/Vol] 0.2 E9/L Normal 0.0 - 0.5 E9/L Remisol Heme Eosinophils/100 WBC (Bld) 2.9 % Normal 0.0 - 8.0 % Remisol Heme Erythrocyte distribution width (RBC) [Ratio] 13.4 % Normal 10.9 - 14.2 % Remisol Heme Hematocrit (Bld) [Volume fraction] 44.4 % Normal 34.0 - 46.0 % Remisol Heme Hemoglobin (Bld) [Mass/Vol] 15.2 g/dL Normal 12.0 - 16.0 gm/dL Remisol Heme Lymphocytes (Bld) [#/Vol] 2.7 E9/L Normal 1.0 - 4.0 E9/L Remisol Heme Lymphocytes/100 WBC (Bld) 34.3 % Normal 14.0 - 50.0 % Remisol Heme MCH (RBC) [Entitic mass] 29.7 pg Normal 27.0 - 34.0 pg Remisol Heme MCHC (RBC) [Mass/Vol] 34.2 g/dL Normal 31.4 - 36.0 gm/dL Remisol Heme MCV (RBC) [Entitic vol] 86.6 fL Normal 80.0 - 100.0 fL Remisol Heme Monocytes (Bld) [#/Vol] 0.3 E9/L Normal 0.2 - 1.0 E9/L Remisol Heme Monocytes/100 WBC (Bld) 4.1 % Normal 4.0 - 14.0 % Remisol Heme Neutrophils (Bld) [#/Vol] 4.6 E9/L Normal 2.0 - 7.5 E9/L Remisol Heme Neutrophils/100 WBC (Bld) 58.3 % Normal 36.0 - 75.0 % Remisol Heme Platelet mean volume (Bld) [Entitic vol] 8.9 fL Normal 6.4 - 10.8 fL Remisol Heme Platelets (Bld) [#/Vol] 259.0 E9/L Normal 150.0 - 500.0 E9/L Remisol Heme RBC (Bld) [#/Vol] 5.1 E12/L Normal 4.3 - 5.9 E12/L Re misol Heme WBC corrected for nucl RBC Auto (Bld) [#/Vol] 7.8 E9/L Normal 4.0 - 11.0 E9/L Remisol Heme Ironon 07-07-2024 Iron [Mass/Vol] 125 microgram/dL Normal 35-153 [facility] Comment on above: Performed By: #### 2 [id number] #### [facility] [address] [place] [address] TIBC Calculatedon 07-07-2024 Iron binding capacity [Mass/Vol] 386 microgram/dL Normal 250-400 [facility] Comment on above: Performed By: #### 1 [id number] #### [facility] [address] [place] [address] Transferrin [Mass/Vol] 276 mg/dL Normal 200-370 [facility] Comment on above: Performed By: #### 1 [id number] #### [facility] [address] [place] [address] TSH With T4fr Reflexon 07-07 TSH Qn 0.95 m[IU]/L Normal 0.34-5.60 [facility] Comment on above: Performed By: #### 1 [id number] #### [facility] [address] [place] [address] Vit B12on 07-07-2024 Cobalamin (Vitamin B12) [Mass/Vol] 318 pg/mL Normal 50-1500 [facility] Comment on above: Performed By: #### 2 [id number] #### [facility] [address] [place] [address] eGFRon 07-07-2024 eGFR 113 mL/min/1.73 m2 Normal >=59 [facility] Comment on above: Performed By: #### 1 [id number] #### [facility] [address] [place] [address] Ambulatory Visit Summaryon 0 06-23-2024 Ambulatory Visit Summary Ambulatory Visit Summary DOMINIQUE LLAMAS :1985 Visit Date:06/23/2024 Ambulatory Visit Instructions Your Diagnosis Anxiety, Anxiety BMI 39.0-39.9,adult Non-smoker BMI 40.0-44.9, adult Mild recurrent major depression Hypothyroidism Heart palpitations Your Care Team Attending Physician - CARLOS JARAMILLO Primary Care Physician - CARLOS JARAMILLO This Is Your Medications List clonazepam (clonazepam 1 mg Tab) Contact prescribing physician if questions or concerns Misc Prescription (permanent handicap placard) albuterol (Albuterol (Eqv-ProAir HFA) 90 mcg/inh inhalation aerosol) aspirin (Adult Aspirin 81 mg oral tablet, chewable) atenolol (atenolol 100 mg Tab) levothyroxine (levothyroxine 50 mcg (0.05 mg) Tab) metformin (metformin 500 mg Tab) multivitamin, ( Multivitamins) Procedures Performed Implantation of insertable loop recorder (04/28/2024), Carpal tunnel, delivery only;, Colonoscopy, Dilation and curettage, diagnostic and/or therapeutic (nonobstetrical), Gallbladder operation. Discharge Vitals Heart Rate (Peripheral) 83 Blood Pressure 122/66 Height 152 cm Height 60 in Weight 91.4 kg Weight 201.502 lb BMI 39.56 What to do next Scheduled Follow-Up Appointments Thursday 11:00 AM EST With: Jojo Torres Where: [facility] [address] [place] [address]- Thursday 11:00 AM EST With: Jojo Torres Where: [facility] [address] [place] [address]- 2024 11:45 AM EST With: Where: [facility] Thursday 10:00 AM EDT With: CARLOS JARAMILLO Where: [facility] [address] [place] [address]- Thursday 11:00 AM EDT With: Where: [facility] [address] [place] [address]- Someone Will Contact You Regarding These Appointments [facility] [place] Ambulatory Referral, Cardiology, Dr Trevino , 06/23/24 9:48:00 EST, Heart palpitations Medications What How Much When Why Instructions Unchanged clonazepam (clonazepam 1 mg Tab) 1 Tablets By Mouth 3 times a day Anxiety Pickup at [facility]/pharmacy #[id number] Unchanged albuterol (Albuterol (Eqv-ProAir HFA) 90 mcg/ inh inhalation aerosol) 2 Puffs Inhalation Every 6 hours Contact prescribing physician if questions or concerns Unchanged aspirin (Adult Aspirin 81 mg oral tablet, chewable) Chewed Every day Contact prescribing physician if questions or concerns Unchanged atenolol (atenolol 100 mg Tab) See instructions 1 tab(s) by mouth the morning of Cardiac CTA Contact prescribing physician if questions or concerns Unchanged levothyroxine (levothyroxine 50 mcg (0.05 mg) Tab) 1 Tablets By Mouth Every day Hypothyroidism Contact prescribing physician if questions or concerns Unchanged metformin (metformin 500 mg Tab) 1 Tablets By Mouth 2 times a day Contact prescribing physician if questions or concerns Unchanged Misc Prescription (permanent handicap placard) See instructions Clubfoot for chronic medical condition Contact prescribing physician if questions or concerns Unchanged multivitamin, ( Multivitamins) 1 Tablets By Mouth Every day Contact prescribing physician if questions or concerns Pharmacy Information [facility]/pharmacy #[id number]: [address] [place], [place] [id number] [phone] Allergies Geodon (Anaphylaxis) Problems Ongoing - Any problem that you are currently receiving treatment for. ADHD Ankle swelling Anxiety Asthma Bilateral club feet BMI 40.0-44.9, adult [place] of foot Fibromyalgia History of foot surgery History of migraine History of posttraumatic stress disorder (PTSD) Hypokalemia Hypothyroidism Insect bites Insulin resistance Mild recurrent major depression PCOS (polycystic ovarian syndrome) Screening for diabetes mellitus Sinus tachycardia Smoker Stress at home Thyroid nodule Historical - Any problem that you are no longer receiving treatment for. Pain of left calf Patient Survey You may receive a survey via text or e-mail asking about your office visit. Please share your experience with us by completing your survey. We appreciate your feedback and thank you for choosing us for your care. Marty [facility] Family Medicine Office/Clini c Noteon 06-23-2024 Family Medicine Office/Clinic Note Family Medicine Office/Clinic Note Chief Complaint Medication f/u HPI Staff DOMINIQUE LLAMAS is a 39 Years old Female presenting to clinic today for 2 mo F/u for anxiety and depression. Sleep: some days i sleep 8-12 hrs and still take a nap, other days i hardly sleep and still take naps Interest: low Energy: low Concentration: not there Appetite: depends on the day SI/HI: denies Racing thoughts: no my brain is pretty empty BOBBY: 15 PHQ9: 9 Meds hx: clonazepam (clonazepam 1 mg Tab) 1 mg, 1 tab(s), Oral, TID, 90 tab(s), 0 Refill(s) Counseling: Immunizations: Flu: UTD History of Present Illness Dominique is a 39 year old female who presents for a follow up examination. She has been seeing Dr Crum and she is scheduled for a CCTA in July. She now has a loop recorder in place. She has occasional episodes where she has some type of atypical chest pain which radiates to her back, to her left shoulder, she now has a loop recorder in place x 3 years. She will see Dr Garvin as a follow up. I am going to send her to Dr Trevino for the electrical components of her heart as well. We will see what her testing shows and she will consider making an appointment with a cardiac EP. She is very happy with Dr Crum thus far and tolerated the loop recorder procedure well. I did review all of her cardiac testing with her today. She sees Dr Ricks yearly for her thyroid management. She does have some modules in the thyroid and Dr Ricks is monitoring yearly. Anxiety: well controlled on her current regimen. She is seeing Jojo Pugh in . I am filling her clonazepam and she needs a refill today. OARRS reviewed. Review of Systems PHQ Score Initial Depression Screen Score: 2 SCORE Physical Exam Vitals & Measurements HR: 83(Peripheral) BP: 122/66 SpO2: 97% HT: 60 in HT: 152 cm WT: 91.4 kg WT: 201.502 lb BMI: 39.56 General: alert, no acute distress ENMT: TM's clear, oral mucosa moist, no pharyngeal erythema or exudate Cardiovascular: regular rate and rhythm, normal peripheral perfusion Respiratory: Lungs CTA, respirations non labored Extremities: no deformity, no trauma Neurological: oriented x 4, LOC appropriate for age, CN II-XII intact, motor strength equal & normal bilaterally, sensation equal & normal bilaterally, speech normal Assessment/Plan 1. Anxiety, (F41.9: Anxiety disorder, unspecified)Anxiety continue current regimen refills sent Ordered: clonazepam, 1 mg = 1 tab(s), Oral, TID, # 90 tab(s), Refills(s) 3, Pharmacy: [facility]/pharmacy #[id number], 152, cm, 06/23/24 9:05:00 EST, Height/Length Dosing, 91.4, kg, 06/23/24 9:05:00 EST, Weight Dosing 2. BMI 39.0-39.9,adult (Z68.39: Body mass index [BMI] 39.0-39.9, adult) stable for now Ordered: Body Mass Index (BMI) documented 3008F Current tobacco non-user 1036F Depression Screening Negative 3352F Influenza immunization administered or previously received 4274F Most recent diastolic blood pressure <80 mm Hg 3078F Patient screen for fall risk: no falls in last year or 1 fall with no injury in last year 1101F Systolic BP <130 mm Hg (Most Recent) 3074F 3. Non-smoker (Z78.9: Other specified health status) stable 4. BMI 40.0-44.9, adult (Z68.41: Body mass index [BMI] 40.0-44.9, adult) stable 5. Mild recurrent major depression (F33.0: Major depressive disorder, recurrent, mild) stable 6. Hypothyroidism (E03.9: Hypothyroidism, unspecified) continue with Dr Ricks Heart palpitations (R00.2: Palpitations) referral to Dr Trevino continue with [facility] [place] Ordered: [facility] External Ambulatory Referral Follow-up No qualifying data available Problem List/Past Medical History Ongoing ADHD Ankle swelling Anxiety Asthma Bilateral club feet BMI 40.0-44.9, adult Henderson of foot Fibromyalgia History of foot surgery History of migraine History of posttraumatic stress disorder (PTSD) Hypokalemia Hypothyroidism Insect bites Insulin resistance Mild recurrent major depression PCOS (polycystic ovarian syndrome) Screening for diabetes mellitus Sinus tachycardia Smoker Stress at home Thyroid nodule Historical Pain of left calf Procedure/Surgical History Implantation of insertable loop recorder (04/28/2024), Carpal tunnel, delivery only;, Colonoscopy, Dilation and curettage, diagnostic and/or therapeutic (nonobstetrical), Gallbladder operation. Medications Adult Aspirin 81 mg oral tablet, chewable, Chewed, Daily Albuterol (Eqv-ProAir HFA) 90 mcg/inh inhalation aerosol, 180 mcg= 2 puff(s), Inhalation, q6hr, 11 refills atenolol 100 mg Tab, See Instructions Atropine Abboject 0.1 mg/mL Injection, 0.25 mg= 2.5 mL, IV Push, As Directed, PRN clonazepam 1 mg Tab, 1 mg= 1 tab(s), Oral, TID, 3 refills DOBUTamine additive 100 mg [5 mcg/kg/min] + Sodium Chloride 0.9% intravenous solution 100 mL Fluzone TIV PF [id number], 0.5 mL, IntraMuscular, Once Fluzone TIV PF [id number], 0.5 mL, IntraMuscular, Once (more content not included)... Normal [facility] Comment on above: Result Comment: Elec tronically Signed By: CARLOS JARAMILLO\.br\Date and Time Signed: 06/23/24 09:58 EST Ambulatory Visit Summaryon 1 08-02-2023 Ambulatory Visit Summary Ambulatory Visit Summary DOMINIQUE LLAMAS Manjinder :1985 Visit Date:02/23/2024 Ambulatory Visit Instructions Your Diagnosis Encounter for annual wellness visit (AWV) in Medicare patient Hypothyroidism Mild recurrent major depression PCOS (polycystic ovarian syndrome) Adult BMI 39.0-39.9 kg/sq m Obesity due to excess calories Influenza vaccine needed Your Care Team Attending Physician - Clint Ortiz DO Primary Care Physician - CARLOS JARAMILLO This Is Your Medications List [facility] Prescription (permanent handicap placard) albuterol (Albuterol (Eqv-ProAir HFA) 90 mcg/inh inhalation aerosol) atenolol (atenolol 100 mg Tab) clonazepam (clonazepam 1 mg Tab) levothyroxine (levothyroxine 50 mcg (0.05 mg) Tab) metformin (metformin 500 mg Tab) multivitamin, ( Multivitamins) [Image Removed: STOP]Stop taking these medications hydrOXYzine (hydrOXYzine hydrochloride 25 mg Tab) lorazepam (LORazepam 0.5 mg Tab) Procedures Performed Implantation of insertable loop recorder (04/28/2024), Carpal tunnel, delivery only;, Colonoscopy, Dilation and curettage, diagnostic and/or therapeutic (nonobstetrical), Gallbladder operation. What to do next Scheduled Follow-Up Appointments Thursday 11:00 AM EST With: Jojo Torres Where: [facility] [address] [place] [address] 2024 8:40 AM EST With: CARLOS JARAMILLO Where: [place] [address] [place] [address]- Thursday 11:00 AM EST With: Jojo Torres Where: [facility] [address] [place] [address]- Thursday 11:00 AM EST With: Jojo Torres Where: [facility] [address] [place] [address] 2024 11:45 AM EST With: Where: Cardiovascular Services Thursday 11:00 AM EDT With: Where: [address] [address]- Medications What How Much When Why Instructions Unchanged albuterol (Albuterol (Eqv-ProAir HFA) 90 mcg/ inh inhalation aerosol) 2 Puffs Inhalation Every 6 hours Unchanged atenolol (atenolol 100 mg Tab) See instructions 1 tab(s) by mouth the morning of Cardiac CTA Unchanged clonazepam (clonazepam 1 mg Tab) 1 Tablets By Mouth 3 times a day Anxiety Unchanged levothyroxine (levothyroxine 50 mcg (0.05 mg) Tab) 1 Tablets By Mouth Every day Hypothyroidism Unchanged metformin (metformin 500 mg Tab) 1 Tablets By Mouth 2 times a day Unchanged Misc Prescription (permanent handicap placard) See instructions Clubfoot for chronic medical condition Unchanged multivitamin, ( Multivitamins) 1 Tablets By Mouth Every day What How Much When Why Comments Stop Taking hydrOXYzine (hydrOXYzine hydrochloride 25 mg Tab) 1 Tablets By Mouth 4 times a day as needed for for itching Stop Taking lorazepam (LORazepam 0.5 mg Tab) 1 Tablets By Mouth Once a day (at bedtime) Anxiety Allergies Geodon (Anaphylaxis) Problems Ongoing - Any problem that you are currently receiving treatment for. ADHD Ankle swelling Anxiety Asthma Bilateral club feet BMI 40.0-44.9, adult Henderson of foot Fibromyalgia History of foot surgery History of migraine History of posttraumatic stress disorder (PTSD) Hypokalemia Hypothyroidism Insect bites Insulin resistance Mild recurrent major depression PCOS (polycystic ovarian syndrome) Screening for diabetes mellitus Sinus tachycardia Smoker Stress at home Thyroid nodule Historical - Any problem that you are no longer receiving treatment for. Pain of left calf Patient Survey You may receive a survey via text or e-mail asking about your office visit. Please share your experience with us by completing your survey. We appreciate your feedback and thank you for choosing us for your care. Education Materials Obesity, Adult Obesity is the condition of having too much total body fat. Being overweight or obese means that your weight is greater than what is considered healthy for your body size. Obesity is determined by a measurement called BMI (body mass index). BMI is an estimate of body fat and is calculated from height and weight. For adults, a BMI of 30 or higher is considered obese. Obesity can lead to other health concerns and major illnesses, including: ??? Stroke. ??? Coronary artery disease (CAD). ??? Type 2 diabetes. ??? Some types of cancer, including cancers of the colon, breast, uterus, and gallbladder. ??? High blood pressure (hypertension). ??? High cholesterol. ??? Gallbladder stones. Obesity can also contribute to: ??? Osteoarthritis. ??? Sleep apnea. ??? Infertility problems. What are the causes? C (more content not included)... Normal [facility] Family Medicine Office/Clini c Noteon 06-01-2024 Family Medicine Office/Clinic Note Family Medicine Office/Clinic Note Chief Complaint Subsequent AWV Review of Systems PHQ Score Initial Depression Screen Score: 6 SCORE Physical Exam Vitals & Measurements HR: 80(Peripheral) RR: 16 BP: 118/80 SpO2: 98% HT: 152 cm HT: 60 in WT: 92 kg WT: 202.4 lb BMI: 39.82 Assessment/Plan 1. Encounter for annual wellness visit (AWV) in Medicare patient (Z00.00: Encounter for general adult medical examination without abnormal findings) The patient was given a customized and personalized print out of all the current AHRQ USPSTF???s recommendations for preventative services and all current [...] of clutter to prevent tripping and/or falling. [place] Advance Directives reviewed, on file in chart. No changes are needed. Patient denies any problems with ADL???s and Instrumental ADL???s. Cognitive screening completed with memory and clock face drawing. No decline noted. Immunization Record reviewed with the patient. Pt is due for flu vaccine. Allergies and medications reviewed and up to date. Patient denies concerns with taking medication as prescribed, reviewed OTC medications with patient with medication list up to date. Blood tests were reviewed: Discussed what tests need to be updated. Reviewed concerns with bladder control over past 6 months with no concerns. Reviewed pain symptoms with patient: 0 Reviewed all outside providers that patient follows. Last visit summary notes available in chart and/or have been requested. Follow up scheduled 03/04/2024 AWV has been scheduled 03/01/2025 Medicare provides yearly screening for alcohol and depression concerns. This is completed during our Medicare wellness visit for those who do not have a current diagnosis of depression or concerns with alcohol use. I spent a total of 12 minutes on this date of service which included preparing to see the patient, face to face patient care, completing clinical documentation, obtaining and/or reviewing separately obtained history, counseling and educating the patient with handouts. Explanations were provided with reviewing questionnaires. AUDIT risk assessment screening completed, risk score (1) with patient denying concerns with use. 2. Hypothyroidism (E03.9: Hypothyroidism, unspecified) Patient taking Levothyroxine 50 mcg daily as directed. Denies concerns with cold intolerance, or change in appetite, constipation, slow growing hair or hair thinning. Follows up with PCP during office visits with blood work and medication management. 3. Mild recurrent major depression (F33.0: Major depressive disorder, recurrent, mild) Patient taking Lorazepam and Bupropion daily, voices medication is effective. Follows up with PCP with medication management and symptom control. PHQ-9 risk assessment completed with positive findings. Total risk score is 16. Pt declines SSRI therapy. Patient denies any suicidal ideations at this time. Reviewed additional signs/symptoms to monitor for and report to provider. 4. PCOS (polycystic ovarian syndrome) (E28.2: Polycystic ovarian syndrome) Stable. Pt follows up with PCP as directed. 5. Adult BMI 39.0-39.9 kg/sq m (Z68.39: Body mass index [BMI] 39.0-39.9, adult) The standard range for ages 18 and older is >=18.5 and < 25 kg/m2. Your BMI of 39.82 today was above this range, this falls in the obese category and there are medical benefits to weight loss. BMI monitoring is helpful with identifying a weight problem that may be related to a medical condition, or may increase the risk for medical problems. Your BMI and weight management will be followed at subsequent visits with your provider and monitored for progress. GOAL: promoting healthier lifestyle with diet changes in order to reach a healthy weight. 6. Obesity due to excess calories (E66.09: Other obesity due to excess calories) A combination of diet and exercise can help you lose the weight. Discussed weight loss benefits to dietary management and overall health with increased cardiovascular risks associated with waist measurement >35 inches for female and 40 inches for male patients. Reminded pt importance to work on lowering current body weight with healthy dietary intake choices with understanding of portion control. Reviewed goals and patient's readiness with needing to make a healthier lifestyle change. Will work on increasing daily activity and prevent further weight gain. Will follow up with PCP during office visits for progress. 7. Influenza vaccine needed (Z23: Encounter for immunization) Verbal order per Dr. Link. HERNANDEZ to administer dose Flu vaccine. Reviewed additio (more content not included)... Normal [facility] Comment on above: Result Comment: Elec tronically Signed By: Clint Ortiz DO\.br\Date and Time Signed: 06/01/24 15:56 EST\.br\Electronically Co-Signed By: Chaka Coleman LPN\.br\Date and Time Co-Signed: 06/01/24 15:11 EST Interdisciplinary Note - Soc ial Joseph 05-30-2024 Interdisciplinary Note - Coat Padder Interdisciplinary Note - Coat Padder Consult for positive depression screen received. Patient is current with [facility] for appropriate treatment. SW will remain available. Normal [facility] CHEMISTRYOrdered By: SYSTEM SYSTEM on 05-27-2024 Creatinine [Mass/Vol] 0.9 mg/dL Normal 0.5 - 1.3 mg/dL Remisol Chem eGFR 83 mL/min/1.73 m2 Normal >=59mL/min /1.73 m2 Remisol Chem Creatinineon 05-27-2024 Creatinine [Mass/Vol] 0.9 mg/dL Normal 0.5-1.3 [facility] Comment on above: Performed By: #### 2 [id number] #### [facility] [address] [place] [address] eGFRon 05-27-2024 eGFR 83 mL/min/1.73 m2 Normal >=59 [facility] Comment on above: Performed By: #### 1 [id number] #### [facility] [address] [place] [address] Heart and Vascular Office/Cl inic Noteon 05-26-2024 Heart and Vascular Office/Clinic Note Heart and Vascular Office/Clinic Note Chief Complaint `4 wk f/u loop recorder History of Present Illness The patient is a pleasant 39-year-old female who presents for a scheduled follow-up appointment. She was seen by myself due to palpitations and chest pain. Her prior cardiac workup as listed below. She underwent a loop recorder implant. She is scheduled for a CCTA, as well, for June 24, 2024. She reports occasional palpitations. Denies worsening chest pains. Review of Systems PHQ Score Initial Depression Screen Score: 6 SCORE Detailed Depression Screen Score: 11 Total Depression Screen Score: 17 ROS - Provider Constitutional: no fever, no chills, no fatigue Skin:no rash, no lesions ENMT: no ear pain, no sore throat, no congestion. Respiratory: no shortness of breath, no cough, no wheezing. Cardiovascular: no chest pain, yes palpitations, no edema. Gastrointestinal: no nausea, no vomiting, no diarrhea, no GI bleeding. Genitourinary: no dysuria, no frequencyno hematuria Musculoskeletal: no back pain, no trauma. Neurologic: no headache, no dizziness, no numbness, no weakness. Psychiatric: no sleeping problems, no irritability, no mood swings/depression. Heme/Lymph: no bleeding tendency, no bruising tendency, no petechiae, Allergy/Immuno logic: no seasonal allergies, no food allergies, no recurrent infections Physical Exam Vitals & Measurements HR: 90(Peripheral) RR: 16 BP: 124/82 SpO2: 98% HT: 60 in HT: 152 cm WT: 92.2 kg WT: 203.266 lb BMI: 39.91 General: alert, no acute distress Neck: Supple, noJVD nocarotid bruit Cardiovascular: regular rate and rhythm, no murmur normal peripheral perfusion Respiratory: Lungs CTAB, respirations non labored Extremities: no edema left lower extremity. no edema right lower extremity Neurological: oriented x 4, LOC appropriate for age, speech normal Skin: Warm, dry, intact- no rash or concerning lesions Procedure (04/27/2024 13:43 EST Echo Transthoracic Complete) Adult Echocardiogram Report Name: DOMINIQUE LLAMAS Study Date: 04/27/2024 01:04 PM BP: 129/98 mmHg Patient Location: [facility] Ambulatory(s) [facility] HR: 86 : 1985 Gender: Female Height: 60 in Age: 39 yrs Ethnicity: [facility] Weight: 202 lb Reason For Study: Chest pain BSA: 1.9 m2 History: Smoker-Yes,Obesity Ordering Physician: Tatum^Alonso^D Referring Physician: Alonso Winn Performed By: Lily Araiza, AUSTEN, RVT Interpretation Summary Left ventricular systolic function is normal. Ejection Fraction = 60-65%. No significant valvular disease. [1] Exercise stress test was equivocal. Assessment/Plan 1. Palpitations (R00.2: Palpitations) to be continuedStatus post loop recorder implant, routine interrogations 2. Chest pain (R07.9: Chest pain, unspecified) CCTA scheduled. Follow-up No qualifying data available 1 year, earlier if clinically indicated Problem List/Past Medical History Ongoing ADHD Ankle swelling Anxiety Asthma Bilateral club feet BMI 40.0-44.9, adult Henderson of foot Fibromyalgia History of foot surgery History of migraine History of posttraumatic stress disorder (PTSD) Hypokalemia Hypothyroidism Insect bites Insulin resistance Mild recurrent major depression PCOS (polycystic ovarian syndrome) Screening for diabetes mellitus Sinus tachycardia Smoker Stress at home Thyroid nodule Historical Pain of left calf Procedure/Surgical History Implantation of insertable loop recorder (04/28/2024), Carpal tunnel, delivery only;, Colonoscopy, Dilation and curettage, diagnostic and/or therapeutic (nonobstetrical), Gallbladder operation. Medications Albuterol (Eqv-ProAir HFA) 90 mcg/inh inhalation aerosol, 180 mcg= 2 puff(s), Inhalation, q6hr, 11 refills atenolol 100 mg Tab, See Instructions Atropine Abboject 0.1 mg/mL Injection, 0.25 mg= 2.5 mL, IV Push, As Directed, PRN clonazepam 1 mg Tab, 1 mg= 1 tab(s), Oral, TID DOBUTamine additive 100 mg [5 mcg/kg/min] + Sodium Chloride 0.9% intravenous solution 100 mL levothyroxine 50 mcg (0.05 mg) Tab, 50 mcg= 1 tab(s), Oral, Daily, 4 refills metformin 500 mg Tab, 500 mg= 1 tab(s), Oral, BID, 4 refills metoprolol 1 mg/mL Inj, 5 mg= 5 mL, IV Push, Once, PRN perflutren (protein-type A microspheres) intravenous suspension, 1.3 mL, IV Push, Once, PRN permanent handicap placard, See Instructions, 11 refills Multivitamins, 1 tab(s), Oral, Daily Sodium Chloride 0.9% IV Daniella 250 mL bag, 250 mL, IV, As Directed Allergies Geodon (Anaphylaxis) Social History Alcohol - Denies Alcohol Use, 02/18/2023 Current. Liquor. 1-2 times per year., 04/24/2024 Substance Abuse - Denies Substance Abuse, 02/18/2023 Current. Marijuana. 3-5 times per week. Previous treatment: None., 04/24/2024 Tobacco Former smoker, quit more than 30 days ago Tobacco Use:., 05/26/2024 Family History Depression: Sister. Hypertension: Mother, Father and Sis (more content not included)... Normal [facility] Comment on above: Result Comment: Elec tronically Signed By: Tatum JOSEPH, Alonso Junior\.br\Date and Time Signed: 05/26/24 15:03 EST Family Medicine Office/Clini c Noteon 05-08-2024 Family Medicine Office/Clinic Note Family Medicine Office/Clinic Note HPI Staff Dominique Llamas new to me transferring from Dr. Starks for medication MGMT pt states needs help with anxiety and is in counseling for depression Jojo Keaton- [facility] UTD: Colonoscopy: about 4 year ago done in [place] Mammogram: due Pelvic/pap: Nas noms DUE last April was her last one PHQ9 : 22 bobby :19 Acute: Current issues/complaints: pt states needs help with anxiety and is in counseling for depression Follow up for Mental Health: Time of diagnosis: Years fews years Psychology or FM managed: Family Medicine Counseling: Yes Depression: Yes Anxiety: Yes Sleeping pattern: _ 3-5 Mood swings: no Generally feeling happy: no Medication adherence: yes takes medication as prescribed Side effects: None Suicidal Thoughts: Occasionally, but no plan History of Present Illness Dominique is a 38 year old female who presents to [facility] care. She was seeing Dr. Ortiz, however, she stopped seeing him. She is having significant anxiety/racing thoughts/depression ... a lot of this stems from her sister dying in December of this year. She was on buspirone, and lorazepam and neither were effective. She has been on multiple antidepressants and she cannot tolerate the side effects. During times of panic and anxiousness she starts with chest pain and palpitations. She has had some cardiac work up in the past but that was while living in a different state. I couldnt find any records from outside facilities. She has an allergy to the adhesive pads used in EKG. I am going to send her to cardiology for further eval. She is seeing and she is on clonaz PRN anxiety. The staff HPI was reviewed and accurate. Review of Systems PHQ Score Initial Depression Screen Score: 6 SCORE Physical Exam Vitals & Measurements HR: 105(Peripheral) RR: 15 BP: 122/67 SpO2: 98% HT: 60 in HT: 152 cm WT: 95 kg WT: 209 lb BMI: 41.12 General: alert, no acute distress ENMT: TM's clear, oral mucosa moist, no pharyngeal erythema or exudate Cardiovascular: regular rate and rhythm, normal peripheral perfusion Respiratory: Lungs CTA, respirations non labored Extremities: no deformity, no trauma Neurological: oriented x 4, LOC appropriate for age, CN II-XII intact, motor strength equal & normal bilaterally, sensation equal & normal bilaterally, speech normal Assessment/Plan 1. Palpitations (R00.2: Palpitations) referral to cardiology 2. Anxiety (F41.9: Anxiety disorder, unspecified) continue to monitor continue with 3. BMI 40.0-44.9, adult (Z68.41: Body mass index [BMI] 40.0-44.9, adult) stable 4. History of posttraumatic stress disorder (PTSD) (Z86.59: Personal history of other mental and behavioral disorders) continue with Follow-up No qualifying data available Problem List/Past Medical History Ongoing ADHD Ankle swelling Anxiety Asthma Bilateral club feet BMI 40.0-44.9, adult Henderson of foot Fibromyalgia History of foot surgery History of migraine History of posttraumatic stress disorder (PTSD) Hypokalemia Hypothyroidism Insect bites Insulin resistance Mild recurrent major depression PCOS (polycystic ovarian syndrome) Screening for diabetes mellitus Sinus tachycardia Smoker Stress at home Thyroid nodule Historical Pain of left calf Procedure/Surgical History Implantation of insertable loop recorder (04/28/2024), Carpal tunnel, delivery only;, Colonoscopy, Dilation and curettage, diagnostic and/or therapeutic (nonobstetrical), Gallbladder operation. Medications Albuterol (Eqv-ProAir HFA) 90 mcg/inh inhalation aerosol, 180 mcg= 2 puff(s), Inhalation, q6hr, 11 refills Atropine Abboject 0.1 mg/mL Injection, 0.25 mg= 2.5 mL, IV Push, As Directed, PRN clonazepam 1 mg Tab, 1 mg= 1 tab(s), Oral, TID DOBUTamine additive 100 mg [5 mcg/kg/min] + Sodium Chloride 0.9% intravenous solution 100 mL levothyroxine 50 mcg (0.05 mg) Tab, 50 mcg= 1 tab(s), Oral, Daily, 4 refills metformin 500 mg Tab, 500 mg= 1 tab(s), Oral, BID, 4 refills metoprolol 1 mg/mL Inj, 5 mg= 5 mL, IV Push, Once, PRN perflutren (protein-type A microspheres) intravenous suspension, 1.3 mL, IV Push, Once, PRN permanent handicap placard, See Instructions, 11 refills Multivitamins, 1 tab(s), Oral, Daily Sodium Chloride 0.9% IV Daniella 250 mL bag, 250 mL, IV, As Directed Allergies Geodon (Anaphylaxis) Social History Alcohol - Denies Alcohol Use, 02/18/2023 Current. Liquor. 1-2 times per year., 04/24/2024 Substance Abuse - Denies Substance Abuse, 02/18/2023 Current. Marijuana. 3-5 times per week. Previous treatment: None., 04/24/2024 Tobacco Former smoker, quit more than 30 days ago Tobacco Use:., 04/24/2024 Family History Depression: Sister. Hypertension: Mother, Father and Sister. Hypothyroidism: Grandparent. Primary malignant neoplasm of female breast: Grandparent. Primary malignant neoplasm of rectum: Mother. Primary malig (more content not included)... Normal [facility] Comment on above: Result Comment: Elec tronically Signed By: CARLOS JARAMILLO\.br\Date and Time Signed: 05/08/24 17:37 EST Ambulatory Visit Summaryon 1 07-02-2023 Ambulatory Visit Summary Ambulatory Visit Summary FARHAD, DOMINIQUE Dunbar :1985 Visit Date:05/02/2024 Ambulatory Visit Instructions Your Diagnosis Mild recurrent major depression History of posttraumatic stress disorder (PTSD) Your Care Team Attending Physician - Jojo Torres Primary Care Physician - CARLOS JARAMILLO This Is Your Medications List [facility] Prescription (permanent handicap placard) albuterol (Albuterol (Eqv-ProAir HFA) 90 mcg/inh inhalation aerosol) clonazepam (clonazepam 1 mg Tab) levothyroxine (levothyroxine 50 mcg (0.05 mg) Tab) metformin (metformin 500 mg Tab) multivitamin, ( Multivitamins) Procedures Performed Implantation of insertable loop recorder (04/28/2024), Carpal tunnel, delivery only;, Colonoscopy, Dilation and curettage, diagnostic and/or therapeutic (nonobstetrical), Gallbladder operation. What to do next Scheduled Follow-Up Appointments Thursday 11:00 AM EST With: Jojo Torres Where: [facility] [address] [place] [address] [place] [address]- Thursday 2:00 PM EST With: CARLOS JARAMILLO Where: [place] [address] [address] [place] [address]- 2023 2:45 PM EST With: Alonso Winn MD Where: [facility] Thursday 11:00 AM EST With: Jojo Torres Where: [facility] [address] [place] [address] [place] [address]- Thursday 11:00 AM EST With: Jojo Torres Where: [facility] [address] [place] [address] [place] [address]- Thursday 11:00 AM EST With: Jojo Torres Where: [facility] [address] [place] [address] [place] [address]- Thursday 11:00 AM EST With: Jojo Torres Where: [facility] [address] [place] [address] [place] [address]- 2024 11:45 AM EST With: Where: [facility] Thursday 11:00 AM EDT With: Where: [facility] [address] [facility] [address] [place] [address]- Medications What How Much When Why Instructions Unchanged albuterol (Albuterol (Eqv-ProAir HFA) 90 mcg/ inh inhalation aerosol) 2 Puffs Inhalation Every 6 hours Unchanged clonazepam (clonazepam 1 mg Tab) 1 Tablets By Mouth 3 times a day Anxiety Unchanged levothyroxine (levothyroxine 50 mcg (0.05 mg) Tab) 1 Tablets By Mouth Every day Hypothyroidism Unchanged metformin (metformin 500 mg Tab) 1 Tablets By Mouth 2 times a day Unchanged Misc Prescription (permanent handicap placard) See instructions Clubfoot for chronic medical condition Unchanged multivitamin, ( Multivitamins) 1 Tablets By Mouth Every day Allergies Geodon (Anaphylaxis) Problems Ongoing - Any problem that you are currently receiving treatment for. ADHD Ankle swelling Anxiety Asthma Bilateral club feet BMI 40.0-44.9, adult Henderson of foot Fibromyalgia History of foot surgery History of migraine History of posttraumatic stress disorder (PTSD) Hypokalemia Hypothyroidism Insect bites Insulin resistance Mild recurrent major depression PCOS (polycystic ovarian syndrome) Screening for diabetes mellitus Sinus tachycardia Smoker Stress at home Thyroid nodule Historical - Any problem that you are no longer receiving treatment for. Pain of left calf Patient Survey You may receive a survey via text or e-mail asking about your office visit. Please share your experience with us by completing your survey. We appreciate your feedback and thank you for choosing us for your care. [facility] Inpatient Clinical Summaryon 04-28-2024 Inpatient Clinical Summary Inpatient Clinical Summary [address] [address] Clinical Summary Person Information: Name: DOMINIQUE LLAMAS Age: 39 Years : 1985 Sex: Female PCP: CARLOS JARAMILLO Marital Status: Phone: [phone] Race: White Ethnicity: Non- or Language: Senegalese Visit Id: Visit Reason: R07.9, R00.2 Speciality: Acuity: Enc Type: Ambulatory/Same Day Surgery Med Service: Surgery Arrival: 04/28/2024 07:32:55 Discharge: Dispo Type: Address: [address] [place] [phone] Provider Notes: Diagnosis: Problems Active BMI 40.0-44.9, adult Sinus tachycardia Anxiety Stress at home Insect bites Screening for diabetes mellitus History of foot surgery Bilateral club feet Ankle swelling Henderson of foot Hypokalemia ADHD Insulin resistance Smoker PCOS (polycystic ovarian syndrome) Thyroid nodule Hypothyroidism Fibromyalgia Asthma History of posttraumatic stress disorder (PTSD) History of migraine Mild recurrent major depression Smoking Status: Functional Status: Sensory Deficits: History of Falls: Mobility Assistance Prior to Admission: ADLs: Current Level of Assistance for Self-Care/Mobility: Cognitive Status: Allergies Geodon (Anaphylaxis) Measurements: Height: 152 cm Weight: 92 kg Blood Pressure: Not Valued / Not Valued BMI: 39.82 kg/m2 Procedures No Procedures Documented Immunizations No Immunizations Documented This Visit Final Med List: albuterol (Albuterol (Eqv-ProAir HFA) 90 mcg/inh inhalation aerosol) 2 Puffs Inhalation every 6 hours. Refills: 11. clonazepam (clonazepam 1 mg Tab) 1 Tablets By Mouth 3 times a day. Refills: 0. levothyroxine (levothyroxine 50 mcg (0.05 mg) Tab) 1 Tablets By Mouth every day. Refills: 4. metformin (metformin 500 mg Tab) 1 Tablets By Mouth 2 times a day. Refills: 4. Misc Prescription (permanent handicap placard) for chronic medical condition. Refills: 11. multivitamin, ( Multivitamins) 1 Tablets By Mouth every day. Care Team Members: Attending Physician: Alonso Winn MD Consulting Physician: Referring Physician: Alonso Winn MD Follow up: With: Address: When: Alonso Winn [address] [place] [phone] Business (1) 05/26/2024 2:45 PM Comments: Keep scheduled appointment Type Location Start Finish State [facility] Therapy [facility] 05/02/2024 11:00 AM 05/02/2024 12:00 PM Confirmed BH Therapy 60 [facility] 05/20/2024 11:00 AM 05/20/2024 12:00 PM Confirmed FM Open [facility] 05/23/2024 2:00 PM 05/23/2024 2:20 PM Confirmed BH Therapy 60 [facility] 06/03/2024 11:00 AM 06/03/2024 12:00 PM Confirmed BH Therapy 60 [facility] 06/15/2024 11:00 AM 06/15/2024 12:00 PM Confirmed BH Therapy 60 [facility] 06/29/2024 11:00 AM 06/29/2024 12:00 PM Confirmed BH Therapy 60 [facility] 07/15/2024 11:00 AM 07/15/2024 12:00 PM Confirmed FM Medicare Wellness Subsequent [facility] [place] 03/01/2025 11:00 AM 03/01/2025 12:00 PM Confirmed Patient Education Information: Implantable Loop Recorder Placement, Care After [facility] Inpatient Patient Summaryon 04-28-2024 Inpatient Patient Summary Inpatient Patient Summary [address] [address] Patient Discharge Instructions PERSON INFORMATION Name: DOMINIQUE LLAMAS Date of : 1985 Current Date: 04/28/2024 09:05:54 PHYSICIANS Admitting Physician: Alonso Winn MD Primary Care Physician: CARLOS JARAMILLO PCP Comment: Discharge Diagnosis: Condition at Discharge: Stable DOMINIQUE LLAMAS has been given the following list of follow-up instructions, prescriptions, and patient education materials: PATIENT FOLLOW-UP INFORMATION Diet: Discharge Activity: Discharge Restrictions: Wound Care Instructions: Remove Your Dressing In Days Call Your Doctor For: IF UNABLE TO CONTACT YOUR PHYSICIAN AND YOU FEEL IT IS AN EMERGENCY, GO TO THE NEAREST EMERGENCY ROOM OR CALL 911 Home Treatment: Devices/Equipment: Special Services: Additional Instructions: Primary Care Physician to provide the following pending test results: None Follow up: With: Address: When: Alonso Winn [address] [place] [phone] Business (1) 05/26/2024 2:45 PM Comments: Keep scheduled appointment In the event that this physician does not participate in your insurance network, please consult with your insurance company to find a nearby participating provider. Type Location Start Finish State BH Therapy 60 [facility] 05/02/2024 11:00 AM 05/02/2024 12:00 PM Confirmed BH Therapy 60 [facility] 05/20/2024 11:00 AM 05/20/2024 12:00 PM Confirmed FM Open [facility] 05/23/2024 2:00 PM 05/23/2024 2:20 PM Confirmed BH Therapy 60 [facility] 06/03/2024 11:00 AM 06/03/2024 12:00 PM Confirmed BH Therapy 60 [facility] 06/15/2024 11:00 AM 06/15/2024 12:00 PM Confirmed BH Therapy 60 [facility] 06/29/2024 11:00 AM 06/29/2024 12:00 PM Confirmed BH Therapy 60 [facility] 07/15/2024 11:00 AM 07/15/2024 12:00 PM Confirmed Medicare Wellness Subsequent [facility] 03/01/2025 11:00 AM 03/01/2025 12:00 PM Confirmed Comment: FARHAD Hancock SHAWNA M, have received the attached patient education materials/instructi ons and have verbalized understanding: Patient Signature Date Clinican/Nurse Signature Date HERE ARE THE MEDICATION CHANGES THAT OCCURRED DURING YOUR HOSPITAL STAY Medications to Continue with No Changes Other Medications albuterol (Albuterol (Eqv-ProAir HFA) 90 mcg/inh inhalation aerosol) 2 Puffs Inhalation every 6 hours. Refills: 11. Last Dose: Next Dose: clonazepam (clonazepam 1 mg Tab) 1 Tablets By Mouth 3 times a day. Refills: 0. Last Dose: Next Dose: levothyroxine (levothyroxine 50 mcg (0.05 mg) Tab) 1 Tablets By Mouth every day. Refills: 4. Last Dose: Next Dose: metformin (metformin 500 mg Tab) 1 Tablets By Mouth 2 times a day. Refills: 4. Last Dose: Next Dose: Misc Prescription (permanent handicap placard) for chronic medical condition. Refills: 11. Last Dose: Next Dose: multivitamin, ( Multivitamins) 1 Tablets By Mouth every day. Last Dose: Next Dose: Comment: MEDICATION LIST PROVIDED FOR YOU IS A LIST OF YOUR CURRENT MEDICATIONS. PLEASE CARRY THIS WITH YOU AT ALL TIMES. albuterol (Albuterol (Eqv-ProAir HFA) 90 mcg/inh inhalation aerosol) 2 Puffs Inhalation every 6 hours. Refills: 11. clonazepam (clonazepam 1 mg Tab) 1 Tablets By Mouth 3 times a day. Refills: 0. levothyroxine (levothyroxine 50 mcg (0.05 mg) Tab) 1 Tablets By Mouth every day. Refills: 4. metformin (metformin 500 mg Tab) 1 Tablets By Mouth 2 times a day. Refills: 4. Misc Prescription (permanent handicap placard) for chronic medical condition. Refills: 11. multivitamin, ( Multivitamins) 1 Tablets By Mouth every day. Pharmacy Information: Comment: PATIENT EDUCATION INFORMATION Instructions: Implantable Loop Recorder Placement, Care After The following information offers guidance on how to care for yourself after your procedure. Your health care provider may also give you more specific instructions. If you have problems or questions, contact your health care provider. What can I expect after the procedure? After the procedure, it is common to have: ??? Soreness or discomfort near the incision. ??? Some swelling or bruising near the incision. Follow these instructions at home: Incision care ??? Follow instructions from your health care provider about how to take care of your incision. Make (more content not included)... [facility] Heart and Vascular Office/Cl inic Noteon 04-11-2024 Heart and Vascular Office/Clinic Note Heart and Vascular Office/Clinic Note Chief Complaint here to establish care - palpitations History of Present Illness The patient is a pleasant 39-year-old female with past medical history of anxiety, PCOS, who presents for cardiac evaluation for palpitations and chest pains. The patient states that she has been having feelings of racing heart for many years. Prior cardiac workup included attempts at obtaining heart monitors, however, those were unsuccessful, due to the fact that the patient is allergic to the contact gel she also reports episodes of chest discomfort, happening at the moment of the palpitations, perceived as tightness in the chest with radiation to her back and left shoulder. She reports no shortness of breath, dizziness, lightheadedness, syncope or presyncope. Review of Systems ROS - Provider Constitutional: no fever, no chills, no fatigue Skin:no rash, no lesions ENMT: no ear pain, no sore throat, no congestion. Respiratory: no shortness of breath, no cough, no wheezing. Cardiovascular: yes chest pain, yes palpitations, no edema. Gastrointestinal: no nausea, no vomiting, no diarrhea, no GI bleeding. Genitourinary: no dysuria, no frequencyno hematuria Musculoskeletal: no back pain, no trauma. Neurologic: no headache, no dizziness, no numbness, no weakness. Psychiatric: no sleeping problems, no irritability, no mood swings/depression. Heme/Lymph: no bleeding tendency, no bruising tendency, no petechiae, Allergy/Immuno logic: no seasonal allergies, no food allergies, no recurrent infections Physical Exam Vitals & Measurements HR: 99(Peripheral) RR: 16 BP: 138/98 SpO2: 98% HT: 60 in HT: 152 cm WT: 92 kg WT: 202.4 lb BMI: 39.82 General: alert, no acute distress Neck: Supple, noJVD nocarotid bruit Cardiovascular: regular rate and rhythm, no murmur normal peripheral perfusion Respiratory: Lungs CTAB, respirations non labored Extremities: no edema left lower extremity. no edema right lower extremity Neurological: oriented x 4, LOC appropriate for age, speech normal Skin: Warm, dry, intact- no rash or concerning lesions Procedure ECG which was obtained today in the office showed sinus rhythm at 80 bpm that is essentially unremarkable. Assessment/Plan 1. Chest pain (R07.9: Chest pain, unspecified) I would like to obtain a transthoracic echocardiogram, as well as plain exercise stress test. 2. Palpitations (R00.2: Palpitations) There is no documented arrhythmia. The patient will need some sort of heart monitoring, however, options are limited, due to allergy to a contact gel of the heart monitors. I believe the only viable option would be to implant a loop recorder. This option was presented to the patient, she agreed to proceed. Ordered: ECG 12 Lead Adult Follow-up No qualifying data available Problem List/Past Medical History Ongoing ADHD Ankle swelling Anxiety Asthma Bilateral club feet BMI 40.0-44.9, adult Henderson of foot Fibromyalgia History of foot surgery History of migraine History of posttraumatic stress disorder (PTSD) Hypokalemia Hypothyroidism Insect bites Insulin resistance Mild recurrent major depression PCOS (polycystic ovarian syndrome) Screening for diabetes mellitus Sinus tachycardia Smoker Stress at home Thyroid nodule Historical Pain of left calf Procedure/Surgical History Carpal tunnel, delivery only;, Colonoscopy, Dilation and curettage, diagnostic and/or therapeutic (nonobstetrical), Gallbladder operation. Medications Albuterol (Eqv-ProAir HFA) 90 mcg/inh inhalation aerosol, 180 mcg= 2 puff(s), Inhalation, q6hr, 11 refills clonazepam 1 mg Tab, 1 mg= 1 tab(s), Oral, TID levothyroxine 50 mcg (0.05 mg) Tab, 50 mcg= 1 tab(s), Oral, Daily, 4 refills metformin 500 mg Tab, 500 mg= 1 tab(s), Oral, BID, 4 refills permanent handicap placard, See Instructions, 11 refills Multivitamins, 1 tab(s), Oral, Daily Allergies Nima (Anaphylaxis) Social History Alcohol - Denies Alcohol Use, 02/18/2023 Substance Abuse - Denies Substance Abuse, 02/18/2023 Current, Marijuana, 3-5 times per week, Started age 18 Years. IV drug use: No. Drug use interferes with work/home: No. Ready to change: No. Household substance abuse concerns: No., 03/22/2024 Tobacco Former smoker, quit more than 30 days ago Tobacco Use:. Current vaping or e-cigarette use Smokeless Tobacco Use:. Vaping, 12 per day. Started age 16.0 Years. Ready to change: No. Household tobacco concerns: No. Yes, 04/11/2024 Family History Depression: Sister. Hypertension: Mother, Father and Sister. Hypothyroidism: Grandparent. Primary malignant neoplasm of female breast: Grandparent. Primary malignant neoplasm of rectum: Mother. Primary malignant neoplasm of skin: Grandparent. Prostate: Mother, Father and Grandparent. Stroke: Grandparent. Immunizations Vaccine Date Status influenza virus vaccine, inactivated 06/23/2023 Given influenza v (more content not included)... [facility] Comment on above: Result Comment: Elec tronically Signed By: Tatum JOSEPH, Alonso Junior\.br\Date and Time Signed: 04/11/24 13:39 EDT Ambulatory Visit Summaryon 1 Ambulatory Visit Summary Ambulatory Visit Summary DOMINIQUE LLAMAS :1985 Visit Date:03/22/2024 Ambulatory Visit Instructions Your Diagnosis BMI 40.0-44.9, adult History of posttraumatic stress disorder (PTSD) Anxiety Palpitations Your Care Team Attending Physician - CARLOS JARAMILLO Primary Care Physician - Clint Ortiz DO This Is Your Medications List clonazepam (clonazepam 1 mg Tab) Contact prescribing physician if questions or concerns Misc Prescription (permanent handicap placard) albuterol (Albuterol (Eqv-ProAir HFA) 90 mcg/inh inhalation aerosol) levothyroxine (levothyroxine 50 mcg (0.05 mg) Tab) metformin (metformin 500 mg Tab) multivitamin, ( Multivitamins) Procedures Performed Carpal tunnel, delivery only;, Colonoscopy, Dilation and curettage, diagnostic and/or therapeutic (nonobstetrical), Gallbladder operation. Discharge Vitals Heart Rate (Peripheral) 105 Respiratory Rate 15 Blood Pressure 122/67 Height 152 cm Height 60 in Weight 95 kg Weight 209 lb BMI 41.12 What to do next Scheduled Follow-Up Appointments Thursday 11:00 AM EDT With: Jojo Torres Where: [facility] [address] [place] [address]- Thursday 11:00 AM EDT With: Jojo Torres Where: [facility] [address] [place] [address]- Thursday 11:00 AM EST With: Jojo Torres Where: [facility] [address] [place] [address] [place] [address]- Thursday 11:00 AM EST With: Jojo Torres Where: [facility] [address] [place] [address] [place] [address]- Thursday 11:00 AM EST With: Jojo Torres Where: [facility] [address] [place] [address] [place] [address]- Thursday 2:00 PM EST With: CARLOS JARAMILLO Where: [address] [place] [address]- Thursday 11:00 AM EST With: Jojo Torres Where: [facility] [address] [place] [address] [place] [address]- Thursday 11:00 AM EST With: Jojo Torres Where: [facility] [address] [place] [address] [place] [address]- Thursday 11:00 AM EST With: Jojo Torres Where: [facility] [address] [place] [address] [place] [address]- Thursday 11:00 AM EST With: Jojo Torres Where: [facility] [address] [place] [address] [place] [address]- Thursday 11:00 AM EDT With: Where: [place] [address] [address] [place] [address]- Medications What How Much When Why Instructions Changed clonazepam (clonazepam 1 mg Tab) 1 Tablets By Mouth 3 times a day Anxiety Pickup at [facility]/pharmacy #[id number] Unchanged albuterol (Albuterol (Eqv-ProAir HFA) 90 mcg/ inh inhalation aerosol) 2 Puffs Inhalation Every 6 hours Contact prescribing physician if questions or concerns Unchanged levothyroxine (levothyroxine 50 mcg (0.05 mg) Tab) 1 Tablets By Mouth Every day Hypothyroidism Contact prescribing physician if questions or concerns Unchanged metformin (metformin 500 mg Tab) 1 Tablets By Mouth 2 times a day Contact prescribing physician if questions or concerns Unchanged Misc Prescription (permanent handicap placard) See instructions Clubfoot for chronic medical condition Contact prescribing physician if questions or concerns Unchanged multivitamin, ( Multivitamins) 1 Tablets By Mouth Every day Contact prescribing physician if questions or concerns Pharmacy Information [facility]/pharmacy #[id number]: [address] [place] [phone] Allergies Geodon (Anaphylaxis) Problems Ongoing - Any problem that you are currently receiving treatment for. ADHD Ankle swelling Anxiety Asthma Bilateral club feet BMI 40.0-44.9, adult Henderson of foot Fibromyalgia History of foot surgery History of migraine History of posttraumatic stress disorder (PTSD) Hypokalemia Hypothyroidism Insect bites Insulin resistance Mild recurrent major depression PCOS (polycystic ovarian syndrome) Screening for diabetes mellitus Sinus tachycardia Smoker Stress at home Thyroid nodule Historical - Any problem that you are no longer receiving treatment for. Pain of left calf Patient Survey You may receive a survey via text or e-mail asking about your office visit. Please share your experience with us by completing your survey. We appreciate your feedback and thank you for choosing us for your care. [facility] Ambulatory Visit Summaryon 0 03-04-2024 Ambulatory Visit Summary Ambulatory Visit Summary DOMINIQUE LLAMAS :1985 Visit Date:03/04/2024 Ambulatory Visit Instructions Your Diagnosis Anxiety disorder, unspecified Other specified problems related to primary support group Mild recurrent major depression Sinus tachycardia Adult BMI 40.0-44.9 kg/sq m Your Care Team Attending Physician - Clint Ortiz DO Primary Care Physician - Clint Ortiz DO This Is Your Medications List clonazepam (ClonazePAM 0.5 mg Tab) Contact prescribing physician if questions or concerns Misc Prescription (permanent handicap placard) albuterol (Albuterol (Eqv-ProAir HFA) 90 mcg/inh inhalation aerosol) levothyroxine (levothyroxine 50 mcg (0.05 mg) Tab) metformin (metformin 500 mg Tab) multivitamin, ( Multivitamins) [Image Removed: STOP]Stop taking these medications hydrOXYzine (hydrOXYzine hydrochloride 25 mg Tab) lorazepam (LORazepam 0.5 mg Tab) Procedures Performed Carpal tunnel, delivery only;, Colonoscopy, Dilation and curettage, diagnostic and/or therapeutic (nonobstetrical), Gallbladder operation. Discharge Vitals Heart Rate (Peripheral) 100 Blood Pressure 120/86 Height 152 cm Height 60 in Weight 92.5 kg Weight 203.5 lb BMI 40.04 What to do next Scheduled Follow-Up Appointments Thursday 11:00 AM EDT With: Jojo Torres Where: [facility] [address] [place], [place] [id number]- Thursday 11:00 AM EDT With: Jojo Torres Where: [facility] [address] [place] [address] [place] [address]- Thursday 11:00 AM EDT With: Jojo Torres Where: [facility] [address] [place] [address] [place] [address]- Thursday 11:00 AM EST With: Jojo Torres Where: [facility] [address] [place] [address] [place] [address]- Thursday 11:00 AM EST With: Jojo Torres Where: [facility] [address] [place] [address] [place] [address]- Thursday 11:00 AM EST With: Jojo Torres Where: [facility] [address] [place] [address] [place] [address]- 2023 1:00 PM EST With: Clint Ortiz DO Where: [facility] [address] [facility] [address] [place] [address]- Thursday 11:00 AM EST With: Jojo Torres Where: [facility] [address] [place] [address] [place] [address]- Thursday 11:00 AM EST With: Jojo Torres Where: [facility] [address] [place] [address] [place] [address]- Thursday 11:00 AM EST With: Jojo Torres Where: [facility] [address] [place] [address] [place] [address]- Thursday 11:00 AM EST With: Jojo Torres Where: [facility] [address] [place] [address] [place] [address]- Thursday 11:00 AM EDT With: Where: [facility] [address] [place] [address]- You Need to Schedule the Following Appointments Follow Up with Clint Otriz DO, FAM, PED When: Within 1 month Comments: 20 min slot To go instructions: stop lorazepam Begin clonazepam 0.5mg twice a day ------ *When you see providers outside of [facility], please request that they send office visit notes every time you're seen there - this helps us take better care of you Screening guidelines: Colon cancer screening starts at age 45 for most people; cologuard every three years or colonoscopy every ten years (for average risk patients) Breast cancer screening; reasonable to consider screening between 40-49; every woman age 50-74 should undergo screening mammogram every 1-2 years Dental exams and cleanings every 6 months is recommended - oral health is a predictor of your future Smokers who have averaged a pack a day for over twenty years should have annual low dose Chest CT to screen for lung cancer starting at age 50 Follow up 2 month Where: [address] [place] [id number] Medications What How Much When Why Instructions New clonazepam (ClonazePAM 0.5 mg Tab) 1 Tablets By Mouth 2 times a day Anxiety disorder, unspecified Refills: 1 Pickup at [facility]/pharmacy #[id number] Unchanged albuterol (Albuterol (Eqv-ProAir HFA) 90 mcg/ inh inhalation aerosol) 2 Puffs Inhalation Every 6 hours Contact prescribing physician if questions or concerns Unchanged levothyroxine (levothyroxine 50 mcg (0.05 mg) Tab) 1 Tablets By Mouth Every day Hypothyroidism Contact prescribing physician if questions or concerns Unchanged metformin (metformin 500 mg Tab) 1 Tablets By Mouth 2 time (more content not included)... Normal [facility] Family Medicine Office/Clini c Noteon 03-04-2024 Family Medicine Office/Clinic Note Family Medicine Office/Clinic Note Chief Complaint F/U on Medications HPI Staff Patient here for 1 month F/U Medication ALEXANDER 01/28/24 Labs 05/10/23 Patient states lorazepam does not work. Has weight concerns. States she is seeing Jojo Pugh for counseling PHQ 16 History of Present Illness 38 Years old Female here for 1 mo f/u med review HPI staff / Chief Complaint confirmed with the patient Social: The patient is ; Xiang since 2021 He has a 20 year old, Shmuel, from another relationship They had Rylan together in the year before they they dated from [age] they had until age 33 -- they lived in a trailer park in [place] the patient moved back to [place] to be closer to family until age 24 moved to [place] to move in with her grandma; when grandma kicked her out, her son went to live with her Dad and step mom The patient's real dad and stepmom have no guardianship The patient's step sister has custody - they have an on again off again relationship they will see him again around thanksgiving - we have to drive there to crop picker and drop off at their home the patient moved around until getting back with Xiang Xiang was living in [place] when they reconnected The patient is on disability for her bilat club feet for a long time The patient has 1 children; 12 miscarriages Screening: Colon Cancer screening: UPPER AND LOWER done in [place] with a UNCLEAR f/u recommended; this patient DOES have family history of colon cancer IN HER MOTHER - LIKELY done in 2020, in a surgery center connected to [facility] Breast cancer screening: START at age 40; this patient DOES have a family history of breast cancer Pap smear: 2022 DEXA: age Labs: _ Diabetes/ prediabetes: A1c: Hgb A1C %: 5.1 % (10/15/23 11:48:00) Smokers/ former smokers: Low dose lung CT: vapes daily List of Providers: Ortho - Dr. Carcamo - [facility] Licensed Direct Entry Midwife - Dr. Lovell ENT - Dr. Ricks - [facility] Counseling - Jojo Pugh To do list: Consider referral to local GI to f/u on prior testing Mammogram begin age 40 HPI staff / Chief Complaint confirmed with the patient Interval history: Since her last appt, I cannot think of a single thing that's new since my last appt Dr Lovell recommends that she see a fertility specialist will vacillate between having another kiddo, and not having another kiddo tried to take lorazepam at night, unclear if that helped will take it in the morning, and it's not real helpful in the morning either Father in Law is spending the weekend at hospice for respite care his memory continues to decline has been following denisse Flowersjake Pugh since her last appt they're talking about fight or flight i still cry every morning... mainly over my sister They still aren't sure how she passed - it could be another two months until they have the results of the autopsy January 28, 2024 - last appt here new bug bites recent travel to [place] - stayed with her grandmother after her sister passed saw her foot surgeon since her last appt here - ankle/achilles is doing better increased fatigue increased anxiety starting counseling soon sleep consistency is poor - partially attributed to father in law's care denies SI anxiety/ stress at home - begin lorazepam qHS MDD - complicated by poor sleep and anxiety insect bites - hydroxyzine; may need prednisone f/u 1 month (anything tagged from the patients medical record will be at the bottom of this section) LABS Cr/eGFR: eGFR: 84 mL/min/1.73 m2 (04/20/23 12:57:00) Creatinine: 0.9 mg/dL (04/20/23 12:57:00) A1c: Hgb A1C %: 5.1 % (10/15/23 11:48:00) TSH: TSH: 0.37 mcIU/mL (10/15/23 11:48:00) LDL: LDL Direct: 108 mg/dL (12/03/22 10:03:00) Lipids: Chol: 170 mg/dL (12/03/22 10:03:00) HDL: 44 mg/dL (12/03/22 10:03:00) LDL Direct: 108 mg/dL (12/03/22 10:03:00) Tri mg/dL (12/03/22 10:03:00) VLDL: 25 mg/dL (12/03/22 10:03:00) Future Appointments [facility] Appt. Date: 03/11/2024 11:00 AM Scheduled Provider: Jojo Torres Phone: -- Fax: -- PHYSICAL EXAM Constitutional: Vital signs reviewed; DOMINIQUE LLAMAS is well nourished, no acute distress - obese Head: Atraumatic, normocephalic Eye: EOMI, normal conjunctiva ENT: Moist oral mucosa, external inspection of ears and nose is unremarkable Neck: Trachea is midline, no tenderness Lungs: Clear to auscultation, non-labored respiration - expansion is symmetric Heart: Normal rate and rhythm, normal peripheral perfusion - borderline tachy Lymph: Deferred Abd: Deferred : Deferred MSK: Normal gait and station Skin: Warm, dry Neurologic: Awake, alert and oriented, speech is normal Psychiatric: Cooperative, pleasant - mood is better today From last note: Review of Systems PHQ Score Initial Depression Screen Score: 4 SCORE Detailed Depression Screen Score: 12 Total Depression Screen Score: 16 Physical Exam Vit (more content not included)... Normal [facility] Comment on above: Result Comment: Elec tronically Signed By: Clint Ortiz DO\Date and Time Signed: 03/04/24 13:23 EDT [facility] 02-11-2024 HCG.beta subunit Qn m[IU]/mL Normal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 Allergies\.br\ Geodon (Anaphylaxis)\.br \ Problems\.br\ Ongoing - Any problem that you are currently receiving treatment for.\.br\ ADHD\.br\ Ankle swelling\.br\ Anxiety\.br\ Asthma\.br\ Bilateral club feet\.br\ Henderson of foot\.br\ Depression\.br\ Fibromyalgia\.br\ History of foot surgery\.br\ History of migraine\.br\ History of posttraumatic stress disorder (PTSD)\.br\ Hypokalemia\.br\ Hypothyroidism\.b r\ Insulin resistance\.br\ Mild recurrent major depression\.br\ Pain of left calf\.br\ PCOS (polycystic ovarian syndrome)\.br\ Screening for diabetes mellitus\.br\ Smoker\.br\ Thyroid nodule\.br\ Patient Survey\.br\ You may receive a survey via text or e-mail asking about your office visit. Please share your experience with us by completing your survey. We appreciate your feedback and thank you for choosing us for your care.\.br\ \.br\ [facility] LE Venous Duplex Lefton 0 12-22-2023 LE Venous Duplex Left Exam Date/Time: 12/21/2023 10:24 EDT Reason for Exam: M79.662 Pain in left lower leg Report IMPRESSION: NO EVIDENCE OF VENOUS THROMBOSIS INVOLVING VISUALIZED DEEP VEINS OF THE LEFT LEG. CLINICAL HISTORY: M79.662 Pain in left lower leg. COMMENT: On the left, the external iliac vein, greater saphenous vein, common femoral vein, deep femoral vein, femoral vein, and popliteal vein demonstrate spontaneous phasic venous flow, with augmentation, non-pulsatility, and compressibility every 2 cm. The left posterior tibial and peroneal veins of the deep venous system compress. The contralateral right common femoral vein demonstrates spontaneous phasic venous flow. Ordering Provider: Ho Morales FINAL REPORT Dictated: 12/22/2023 11:41 am Julio Gutiérrez M.D. Signed (Electronic Signature): 12/22/2023 11:41 am Signed by: Julio Gutiérrez M.D. Transcribed by: JOVANNY Technologist: AZIZA Ferguson [facility] ED Clinical Summaryon 2023 ED Clinical Summary ED Clinical Summary [address] [address] ED Clinical Summary Person Information Name: DOMINIQUE LLAMAS [place] Age: 38 Years : 1985 Sex: Female Language: Senegalese PCP: Clint Ortiz DO Marital Status: Phone: [phone] Visit Id: Visit Reason: Leg pain-swelling; left leg pain, Speciality: Acuity: 4 Enc Type: Emergency Med Service: Emergency Arrival: 12/21/2023 02:58:03 Discharge: 12/21/2023 03:26:16 LOS: 000 00:28 Checkin: 12/21/2023 02:58:03 Checkout: 12/21/2023 03:26:16 Dispo Type: Home (Routine DC) EVENTS: Event Name Event Status Request Date/Time Start Date/Time Complete Date/Time Arrive Complete 12/21/2023 02:58:03 12/21/2023 02:58:03 12/21/2023 02:58:03 Document Home Meds Request 12/21/2023 02:58:03 Triage Complete 12/21/2023 02:58:03 12/21/2023 03:05:23 12/21/2023 03:05:23 Bed Assign Complete 12/21/2023 02:59:28 12/21/2023 02:59:28 12/21/2023 02:59:28 Dr Exam Complete 12/21/2023 02:59:28 12/21/2023 03:00:34 12/21/2023 03:00:34 RN Exam Complete 12/21/2023 02:59:28 12/21/2023 03:22:52 12/21/2023 03:22:52 Registration Complete 12/21/2023 03:00:34 12/21/2023 03:24:28 12/21/2023 03:24:28 Isolation Screening Request 12/21/2023 03:05:24 Meds Admin Complete 12/21/2023 03:14:38 12/21/2023 03:23:56 Discharge Complete 12/21/2023 03:15:23 12/21/2023 03:26:21 12/21/2023 03:26:21 Reg Complete Request 12/21/2023 03:24:28 Reg Bed Request Complete 12/21/2023 03:24:28 12/21/2023 03:24:28 12/21/2023 03:24:28 Transfer Complete 12/21/2023 03:26:21 12/21/2023 03:26:21 12/21/2023 03:26:21 ADDRESS: [address] [place] [phone] PHYS DOC NOTES: MEDICAL INFORMATION: Prescriptions Given: Medications to Continue with No Changes Other Medications albuterol (Albuterol (Eqv-ProAir HFA) 90 mcg/inh inhalation aerosol) 2 Puffs Inhalation every 6 hours. Refills: 11. busPIRone (busPIRone 15 mg Tab) 1 Tablets By Mouth 3 times a day. Refills: 11. duloxetine (duloxetine 30 mg oral delayed release capsule) 1 Capsules By Mouth 2 times a day. Refills: 2. letrozole (Femara 2.5 mg Tab) levothyroxine (levothyroxine 50 mcg (0.05 mg) Tab) 1 Tablets By Mouth every day. Refills: 4. metformin (metformin 500 mg Tab) 1 Tablets By Mouth 2 times a day. Refills: 4. methylphenidate (methylphenidate 20 mg ER Tab) 1 Tablets By Mouth every day. 30 day supply. Refills: 0. Misc Prescription (permanent handicap placard) for chronic medical condition. Refills: 11. multivitamin, ( Multivitamins) 1 Tablets By Mouth every day. PATIENT EDUCATION INFORMATION: Instructions: Vascular Ultrasound Follow up: With: Address: When: Clint Ortiz [address] [place], [place] [id number] In 2 days 12/23/2023 DIAGNOSIS: Pain of left calf [facility] ED Note-Physicianon 12-21-19 ED Note-Physician ED Note-Physician Basic Information Time Seen: Ho Morales DO 12/21/2023 03:00 Chief Complaint pt to ED with c/o L leg pain. no trauma or injury. no bruising, deformity, or swelling noted. PCP appt on Thu and Contact Lens Inspector appt on Thu. History of Present Illness HPI: Patient is a 38-year-old female past ministry of ADHD, asthma, fibromyalgia, migraines, hypothyroidism, PCOS who presents ED for left calf pain. Patient states that has been going on for 2 days and is worsening in severity. She denies any injury to the area. Pain is in her lower left calf that radiates the back of her knee. She has tried taking [id number] Tylenol and Motrin with minimal relief. The pain is getting the point where it is affecting her ability to sleep. She has never had anything like this in the past. ROS: Pertinent review of systems conducted and is negative except as noted above. Physical exam: General: nontoxic appearing and in no distress Neuro: awake and alert Neck: supple, trachea midline Card: Heart regular rate and rhythm no murmur Resp: Lungs clear to auscultation no wheeze or rhonchi Left lower extremity: Range of motion of the left knee intact. No effusion of the left knee. No erythema ecchymosis or swelling of the lower portion of the left extremity. She has tenderness over the gastrocnemius. Motor sensation distally intact. Dorsalis pedis pulse 1+, capillary refill is brisk. Physical Exam Vitals & Measurements T: 36.6 ?C(Oral) HR: 96(Peripheral) RR: 16 BP: 148/99 SpO2: 100% HT: 152 cm WT: 89.9 kg BMI: 38.91 Medical Decision Making MEDICAL DECISION MAKING Number and Complexity of Problems Differential Diagnosis: [] [facility] Data External documents reviewed: N/A My EKG interpretation: Noted in chart if applicable My CT interpretation: N/A My X-ray interpretation: Noted in chart if applicable My Ultrasound interpretation: N/A Decision rules/scores evaluated: N/A Discussed with: N/A Treatment and Disposition ED Course: Patient is nontoxic-appearing in no distress. She has atraumatic pain to her left calf tenderness over the gastrocnemius. There is no signs of infection or injury. I am concerned for possible DVT. I discussed this with the patient at bedside. Will give her an outpatient ultrasound performed to have the ultrasound performed first thing in the morning. Will give her 1 dose of Percocet for comfort until she can have the test done. She will follow-up close with her primary care physician on outpatient basis. Shared decision making: As above Code status: N/A Assessment/Plan Pain of left calf (M79.662: Pain in left lower leg) Orders: acetaminophen-oxyco done, 1 tab(s), Tab, Oral, Once, Stop date 12/21/23 3:14:00 EDT, STAT, Start date 12/21/23 3:14:00 EDT Disposition Plan Discharge Prescription List Prescriptions No active prescription medications Follow-up With When Contact Information Clint Ortiz In 2 days 12/23/2023 EDT [address] [place] [address] Additional Instructions: Patient Education Vascular Ultrasound Problem List/Past Medical History Ongoing ADHD Ankle swelling Anxiety Asthma Bilateral club feet Henderson of foot Depression Fibromyalgia History of foot surgery History of migraine History of posttraumatic stress disorder (PTSD) Hypokalemia Hypothyroidism Insulin resistance Mild recurrent major depression PCOS (polycystic ovarian syndrome) Screening for diabetes mellitus Smoker Thyroid nodule Historical No qualifying data Procedure/Surgical History Carpal tunnel, delivery only;, Colonoscopy, Dilation and curettage, diagnostic and/or therapeutic (nonobstetrical), Gallbladder operation. Medications Inpatient acetaminophen-oxyco done 325 mg-5 mg Tab, 1 tab(s), Oral, Once Home Albuterol (Eqv-ProAir HFA) 90 mcg/inh inhalation aerosol, 180 mcg= 2 puff(s), Inhalation, q6hr, 11 refills busPIRone 15 mg Tab, 15 mg= 1 tab(s), Oral, TID, 11 refills duloxetine 30 mg oral delayed release capsule, 30 mg= 1 cap(s), Oral, BID, 2 refills Femara 2.5 mg Tab levothyroxine 50 mcg (0.05 mg) Tab, 50 mcg= 1 tab(s), Oral, Daily, 4 refills metformin 500 mg Tab, 500 mg= 1 tab(s), Oral, BID, 4 refills methylphenidate 20 mg ER Tab, 20 mg= 1 tab(s), Oral, Daily permanent handicap placard, See Instructions, 11 refills Multivitamins, 1 tab(s), Oral, Daily Allergies Geodon (Anaphylaxis) Social History Alcohol - Denies Alcohol Use, 02/18/2023 Substance Abuse - Denies Substance Abuse, 02/18/2023 Tobacco Former smoker, quit more than 30 days ago Tobacco Use:. Current vaping or e-cigarette use Smokeless Tobacco Use:. Vaping, 12 per day. Ready to change: No., 10/16/2023 Family History Depression: Sister. Hypertension: Mother, Father and Sister. Hypothyroidism: Grandparent. Primary malignant neoplasm of female breast: Grandparent. Primary malignant neoplasm of rectum: Mother. Primary malignant neoplasm of (more content not included)... [facility] Comment on above: Result Comment: Elec tronically Signed By: Ho Morales DO\.br\Date and Time Signed: 12/21/23 03:17 EDT ED Patient Summaryon 024 ED Patient Summary ED Patient Summary [place] [id number] Patient Discharge Instructions Person Information Name: DOMINIQUE LLAMAS Age: 38 Years Arrival Date: 12/21/2023 02:58:03 Discharge Diagnosis: Pain of left calf Primary Care Physician: Clint Ortiz DO Provider Information Primary Provider: Ho Morales DO Advanced Paper Cup Machine Operator:None The exam and treatment you received in the Emergency Department were for an urgent problem and are not intended as complete care. It is important that you follow up with a doctor, nurse practitioner, or physician?s assistant professor of surgery for ongoing care. If your symptoms become worse or you do not improve as expected and you are unable to reach your usual health care provider, you should return to the Emergency Department. We are available 24 hours a day. DOMINIQUE LLAMAS has been given the following list of patient education materials, prescriptions and follow-up instructions: Follow-up Instructions: With: Address: When: Clint Ortiz [address] [place], [place] [id number] In 2 days 12/23/2023 In the event that this physician does not participate in your insurance network, please consult with your insurance company to find a nearby participating provider. Patient Education Materials: Vascular Ultrasound A MESSAGE TO ALL PATIENTS REGARDING OPIOIDS PRESCRIPTION OPIOIDS: WHAT YOU NEED TO KNOW Prescription opioids can be used to help relieve zlsdoezr-gh-prsvet pain and are often prescribed following a surgery or injury, or for certain health conditions. These medications can be an important part of the treatment but also come with serious risks. It is important to work with your healthcare provider to make sure you are getting the safest, most effective care. WHAT ARE THE RISKS AND SIDE EFFECTS OF OPIOID USE? Prescription opioids carry serious risks of addiction and overdose, especially with prolonged use. An opioid overdose, often marked by slowed breathing, can cause sudden . The use of prescription opioids can have a number of side effects as well, even when taken as directed: ? Tolerance?meaning you might need to take more of the medication for the same pain relief ? Physical dependence?meaning you have symptoms of withdrawal when a medication is stopped ? Increased sensitivity to pain ? Constipation ? Nausea, vomiting, and dry mouth ? Sleepiness and dizziness ? Confusion ? Depression ? Low levels of testosterone that can result in lower sex drive, energy, and strength ? Itching and sweating RISKS ARE GREATER WITH: ? History of drug misuse, substance use disorder, or overdose ? Mental health conditions (such as depression or anxiety) ? Sleep apnea ? Older age (65 years and older) ? Avoid alcohol while taking prescription opioids. Also, unless specifically advised by your health care provider, medications to avoid include: ? Benzodiazepines (such as Xanax or Valium) ? Muscle relaxants (such as Soma or Flexeril) ? Hypnotics (such as Ambien or Lunesta) ? Other prescription opioids KNOW YOUR OPTIONS Talk to your health care provider about ways to manage your pain that don?t involve prescription opioids. Some of these options may actually work better and have fewer risks and side effects. Options may include: ? Pain relievers such as acetaminophen, ibuprofen, and naproxen ? Some medication that are also used for depression or seizures ? Physical therapy and exercise ? Cognitive behavioral therapy, a psychological, goal-directed approach, in which patients learn how to modify physical, behavioral, and emotional triggers of pain and stress. IF YOU ARE PRESCRIBED OPIOIDS FOR PAIN: ? Never take opioids in greater amounts or more often than prescribed. ? Follow up with your primary health care provider. o Work together to create a plan on how to manage your pain. o Talk about ways to help manage your pain that don?t involve prescription opioids. o Talk about any and all concerns and side effects. ? Help prevent misuse and abuse o Never sell or share prescription opioids. o Never use another person?s prescription opioids. ? Store prescription opioids in a secure place and out of reach of others (this may include visitors, children, friends, and family). ? Safely dispose of unused prescription opioids: Find your community drug take-back program or your pharmacy mail-back program, or flush them down the toilet, following guidance from the Food and Drug Administration (www.fda.gov/Drugs/ ResourcesForYou). ? Visit www.cdc.gov/drugove rdose to learn about the risks of opioids abuse and overdose. ? If you believe you may be struggling with addiction, tell your health behavioral health care coordinator and ask for guidance or call [facility]?S Business e via [place] Helpline at 1-440-380-HELP. v Source: Department of Health an (more content not included)... [facility] Medication Consenton 024 Medication Consent [id number] [facility] Ambulatory Visit Summaryon 0 10-16-2023 Ambulatory Visit Summary FARHAD, DOMINIQUE [place] :1985 Visit Date:10/16/2023 Ambulatory Visit Instructions Your Diagnosis ADHD Anxiety Depression Hypothyroidism Screening for diabetes mellitus Your Care Team Attending Physician - Clint Ortiz DO Primary Care Physician - Clint Ortiz DO This Is Your Medications List busPIRone (busPIRone 15 mg Tab) Contact prescribing physician if questions or concerns Misc Prescription (permanent handicap placard) albuterol (Albuterol (Eqv-ProAir HFA) 90 mcg/inh inhalation aerosol) duloxetine (duloxetine 30 mg oral delayed release capsule) letrozole (Femara 2.5 mg Tab) levothyroxine (levothyroxine 50 mcg (0.05 mg) Tab) metformin (metformin 500 mg Tab) methylphenidate (methylphenidate 20 mg ER Tab) multivitamin, ( Multivitamins) Procedures Performed Carpal tunnel, delivery only;, Colonoscopy, Dilation and curettage, diagnostic and/or therapeutic (nonobstetrical), Gallbladder operation. Discharge Vitals Heart Rate (Peripheral) 102 Blood Pressure 128/90 Height 155 cm Height 61 in Weight 83.4 kg Weight 183.48 lb BMI 34.71 What to do next Scheduled Follow-Up Appointments Thursday 11:00 AM EDT Where: [facility] [place] [facility] Family Medicine Office/Clini c Noteon 10-16-2023 Family Medicine Office/Clinic Note Chief Complaint F/U HPI Staff Patient here today for F/U ALEXANDER 07/21/23 Labs 10/14 Patient states need adjustment in anxiety medication possibly temporary,many family stressor. Also has collar bone pain. ADHD followup: Sleeping well: No, sleeping less than 6 hours Blood pressure:Reviewed, _ Concerns/complaints : None Controlled substance: YES Urine Drug Screen done:UTD Medication Agreement updated: Yes History of Present Illness Social History: The patient is ; Xiang since 2021 The patient is on disability for her bilat club feet The patient has 1 children; 12 miscarriages List of Providers: Ortho - Dr. Carcamo - [facility] Licensed Direct Entry Midwife - Dr. Lovell ENT - Dr. Ricks - [facility] HPI staff / Chief complaint confirmed with patient Screening: Colon Cancer screening: UPPER AND LOWER done in [place] with a UNCLEAR f/u recommended; this patient DOES have family history of colon cancer IN HER MOTHER - LIKELY done in 2020, in a surgery center connected to [facility] Breast cancer screening: START at age 40; this patient DOES have a family history of breast cancer Pap smear: 2022 DEXA: age Labs: October 15, 2023 (Hgb A1C & TSH) Smokers / Former Smokers: Low dose CT: Vapes everyday Diabetes / Prediabetes: Hgb A1c: 5.1% (October 15, 2023) (anything tagged from the patients medical record will be at the bottom of the section) Interval History: Patient would like to increase anxiety medication Xsepwq-sm-nio had dementia so he moved in and she is primary behavioral health care coordinator No longer has nurse in the home He is currently on palliative care --> does not qualify for hospice no longer wants to have another child so deciding whether or not she wants to proceed with the relationship Recently found out her fallopian tubes were clogged Was able to successfully have her right tube opened Emotional on exam when discussing family planning Admits to current suicidal thoughts there is no way to make it look like an accident for the health insurance to pay out life insurance does not cover if person commits suicide Has lost seven pounds since her last visit Says she has been walking up and down the stairs more often States her appetite has been poor Says she has not been sleeping well Less than 6 hours which is not all at once weird pain in my collarbone Left side Pain began on Thursday Has worsened since Thursday No known injury Shooting pain down her arm and into her neck Usually sleeps on her right side When she raise her arm up seems to help the pain Sitting seems to worsen the pain Anti-inflammatories have not seemed to help --> took for four days Heat also does not seem to help Marijuana occasionally helps the pain Has discontinued duloxetine because it made her nauseous SEPTEMBER 25, 2023 - Message Requesting buspirone refill SEPTEMBER 15, 2023 - Message Requesting methylphenidate refill AUGUST 28, 2023 - ENT Toxic multinodular goiter --> f/u US one year AUG 13, 2023 - Message Requesting methylphenidate refill From last note: gastric erosions found on EGD apprx 3 years ago To go instructions: Decrease levothyroxine from 75mcg to 50mcg Labs for TSH in 4 weeks No other changes pain in her foot is about the same [1] Decrease levothyroxine from 75mcg to 50mcg Labs for TSH in 4 weeks - AFTER August 18 Will call with results No other changes [2] gastric erosions found on EGD apprx 3 years ago To go instructions: Decrease levothyroxine from 75mcg to 50mcg Labs for TSH in 4 weeks No other changes pain in her foot is about the same [3] Review of Systems PHQ Score Initial Depression Screen Score: 4 SCORE 13 point ROS negative unless mentioned in HPI Physical Exam Vitals & Measurements HR: 102(Peripheral) BP: 128/90 SpO2: 98% HT: 61 in HT: 155 cm WT: 83.4 kg WT: 183.48 lb BMI: 34.71 Constitutional: Vital signs reviewed; DOMINIQUE LLAMAS is in no acute distress Lungs: Clear to auscultation B/L, no rales, rhonchi, wheezes; symmetric chest expansion Neck: Full ROM Heart: Regular rate and rhythm without murmurs, rubs, gallops MSK: Gait fluid and stable Skin: Warm, dry Neurologic: Awake, alert and oriented, speech is normal Psychiatric: Cooperative, depressed mood, tearful on interview Assessment/Plan 1. ADHD (F90.9: Attention-deficit hyperactivity disorder, unspecified type) Chronic Well controlled Improved on methylphenidate Tolerating well and denies any side effects Medication agreement reviewed and signed today I certify that I have reviewed the OARRS report and all PDMP information in this chart on this visit date Discussed considering discontinuing methylphenidate in the future if trying to conceive F/u 3 months 2. Anxiety (F41.9: Anxiety disorder, unspecified) Chronic Sub-optimal control Patient endorses a lot of home stress at this time between taking care of her pgyrzv-ly-fyi and marital issues In (more content not included)... Normal [facility] Comment on above: Result Comment: Elec tronically Signed By: Clint Ortiz DO\Date and Time Signed: 10/16/23 12:17 EDT CHEMISTRYOrdered By: Naomie diaz on 10-15-2023 HbA1c (Bld) [Mass fraction] 5.1 % Normal <=5.9% [facility] ChemAutoSS CHEMISTRYOrdered By: SYSTEM SYSTEM on 10-15-2023 TSH Qn 0.37 m[IU]/L Normal 0.34 - 5.60 mcIU/mL Remisol Chem Consent for Treatmenton Consent for Treatment [id number] ED#1.00TIFF Normal [facility] [id number] 10-15-2023 HbA1c (Bld) [Mass fraction] 5.1 % Normal <=5.9 [facility] Comment on above: Performed By: #### 7 [id number] #### [facility] Laboratory [address] [place] [address] TSH With T4fr Reflexon 10-14 TSH Qn 0.37 m[IU]/L Normal 0.34-5.60 [facility] Comment on above: Performed By: #### 7 [id number] #### [facility] Laboratory [address] [place] [address] Consultation Noteon 08-28-19 24 Consultation Note [id number] 35#1.00TIFF Marty [facility] US Thyroidon 08-21-2023 US Thyroid Exam Date/Time: [...] thyroid nodules on ultrasound proposed by the [employer] (ACR) Ordering Provider: Nithya Ricks FINAL REPORT Dictated: 08/21/2023 2:39 pm Alvin Jones MD Signed (Electronic Signature): 08/21/2023 2:39 pm Signed by: Alvin Jones MD Transcribed by: JOVANNY Technologist: [place] [facility] Consent for Treatmenton Consent for Treatment [id number]#1.00TIFF [facility] Physician Orderon 08-20-2023 Physician Order [id number] DD#1.00TIFF [facility] CNOVon 08-17-2023 CNOV Office Visit (LOORRM) ---- DOMINIQUE LLAMAS ([id number]) 1985 F Date Time Provider Department 08/17/23 [...] Time: 1 Duration Units: Months Frequency: Intermittent Intervention/Comfor t measure: (cast) Comments: She is here for [...] tablet by mouth every afternoon. No current facility-administer ed medications for this visit. ALLERGIES Allergen Reactions Ziprasidone Anaphylaxis Nima No past surgical history on file. No [...] , HBA1C , VITD25 in the last 81277 hours. X-ray deformity foot and ankle consistent [...] further work up All questions were answered. Dominiqueleny Llamas appeared to be well informed. Greater [...] by mouth (more content not included)... [facility] ---- DOMINIQUE LLAMAS ([id number]) 1985 F Date Time Provider Department 08/17/23 3:00 PM CAST TECH ZOE ANDRE During [...] care given. Will f/u as scheduled/prn. Antonio Moreno CT Allergies As of Date: 08/17/2023 Noted [...] Encounter Status:Closed by ANTONIO MORENO on 08/17/23 [facility] KETTYon 08-03-2023 CNOV Office Visit (INDIR[facility]) ---- DOMINIQUE LLAMAS ([id number]) 1985 F Date Time Provider Department 08/03/23 3:30 PM JEANNINE ANDRE During your visit today, we recorded [...] Status:Closed by ANTONIO MORENO on 08/03/23 [facility] ALL PROGESTERONEon 4 PROGESTERONE 23.8 ng/mL . [facility] Healthcare Comment on above: Follicular phase 0.1 - 0.9 Luteal phase 1.8 - 23.9 Ovulation phase 0.1 - 12.0 First trimester 11.0 - 44.3 Second trimester 25.4 - 83.3 Third trimester 58.7 - 214.0 Postmenopausal 0.0 - 0.1 Performed at: [facility] Lab[address] [id number] Sunglass Clip Attacher: Chapin Pulido PhD, Phone: [phone] [facility] Family Medicine Office/Clini c Noteon 07-24-2023 [...] Cancer screening: UPPER AND LOWER done in [place] with a UNCLEAR f/u recommended; this patient DOES have family history of colon cancer IN HER MOTHER - LIKELY done in 2020, in a surgery center connected to [facility] Breast cancer screening: START at age 40; this patient DOES have a family history of breast cancer Pap smear: 2022 DEXA: age Labs: Jun 2023 List of Providers: Ortho - [facility]cam[facility] - [facility] Licensed Direct Entry Midwife - Dr. Lovell ENT - Dr. Ricks - [facility] staff / Chief Complaint confirmed with the patient Interval history: gastric erosions found on EGD apprx 3 years ago To go instructions: Decrease levothyroxine from 75mcg to 50mcg Labs for TSH in 4 weeks No other changes pain in her foot is about the same From last note: (tag) : Symptoms started 3 weeks ago Since then, [...] Daily, # 30 tab(s), Refills(s) 5, Pharmacy: [facility]/pharmacy #[id number], 155, cm, 07/21/23 8:08:00 EST, Height/Length Dosing, [...] counseled o (more content not included)... Normal [facility] Comment on above: Result Comment: Elec tronically Signed By: Clint Ortiz DO\Date and Time Signed: 07/24/23 18:47 EST KETTYon 07-21-2023 CNOV Office Visit (LOORRM) ---- DOMINIQUE LLAMAS ([id number]) 1985 F Date Time Provider Department 07/21/23 3:30 PM JEANNINE ANDRE During your visit today, we recorded the following information about you: Antonio Moreno Cast Tech 07/21/2023 3:41 PM Signed Ms. Nesst has been informed that the supervising physician [...] Status:Closed by ANTONIO MORENO on 07/21/23 [facility] Patient Educationon 07-21-19 Patient Education Mental and Behavioral Health Attention Deficit Hyperactivity Disorder, Adult Attention deficit hyperactivity disorder (ADHD) is a mental health disorder that starts during childhood. For many people with ADHD, the disorder continues into the adult years. Treatment can help you manage your symptoms. There are three main types of ADHD: ? Inattentive. With this type, adults have difficulty paying attention. This may affect cognitive abilities. ? Hyperactive-impulsi ve. With this type, adults have a lot [...] Losing and forgetting things. Symptoms of the hyperactive-impulsi ve type include: ? Restlessness. ? Talking out [...] primary care provider or a mental health personal caregiver. Your health care provider may use a [...] Behavioral management. You may work with a head strength and conditioning coach who is specially trained to help people with ADHD manage and organize activities and function more effectively. Follow these instructions at home: Medicines ? Take rjya-prx-dwgnxnt and prescription medicines only as told by [...] Follow th (more content not included)... Normal [facility] Christ 07-20-2023 EMMANUELLE Telephone (LOORRM) ---- DOMINIQUE LLAMAS ([id number]) 1985 F Date Time Provider Department 2/5/24 EVELYNE CARCAMO During your visit today, we [...] calling: self Call patient at: on cell [phone] (home) Was an appointment scheduled: No Closing statement: Symptom Call: Thank you for calling [facility], your call is very important. A [...] Never Reviewed Reason for Visit: Patient Request [[id number]] Prescriptions as of 07/20/2023 - albuterol HFA [...] Encounter Status:Closed by SHAHRAM LEE on 07/20/23 [facility] CNOVon 07-13-2023 CNOV Office Visit (LOORRM) ---- DOMINIQUE LLAMAS ([id number]) 1985 F Date Time Provider Department 07/13/23 [...] Encounter Status:Closed by ANTONIO MORENO on 07/13/23 [facility] CNOV Office Visit (LOORRM) ---- DOMINIQUE LLAMAS ([id number]) 1985 F Date Time Provider Department 07/13/23 2:15 PM EVELYNE CARCAMO During your visit today, we recorded the following information about you: Evelyne Carcamo DPM 07/13/2023 3:50 PM Signed Patient Visit for Dmoinique Llamas 1985 38 year old female SUBJECTIVE: Chief Complaint: Patient presents with: Left Foot - New, Pain Right Ankle - New, Pain Left Ankle - New, Pain Right Foot - New, Pain Pain Scales: Verbal (Numeric Rating or Visual Analog Scale) Pain Level: 7 Pain Location: (bilateral foot/ankle) Description: Sharp Duration Amount of Time: 9 Duration Units: Weeks Frequency: Continuous Intervention/Comfor t measure: Heat, Medication Comments: She is here [...] tablet by mouth every afternoon. No current facility-administer ed medications for this visit. ALLERGIES Allergen Reactions [...] , HBA1C , VITD25 in the last 05721 hours. X-ray deformity foot and ankle consistent [...] proceed wit (more content not included)... [facility] No Panel Informationon 07-13 IMPRESSION: Severe bilateral hindfoot valgus. Degenerative changes, as described. Findings suggesting chronic left Achilles tendinosis. Director Of Materials: ALEXI Transcribe Date/Time: Jul 13 2023 2:49P Dictated by : HECTOR KRUSE MD This examination was interpreted and the report reviewed and electronically signed by: SELIN RIGGS MD on Jul 13 2023 5:42PM [facility] DIVISION OF RADIOLOGY Radiology Study observation (narrative) [facility] No Panel InformationOrdered By: [facility] Provider on 07-13-2023 [facility] XR ANKLE 3V AP/LAT/OBL BILon 07-13-2023 XR ANKLE 3V AP/LAT/OBL REENA * * *Final Report* * * DATE OF EXAM: Jul 13 2023 2:17PM LZX 5553 - XR ANKLE 3V AP/LAT/OBL REENA / PROCEDURE REASON: multiple diagnoses * * * * Physician Interpretation * * * * EXAMINATION / TECHNIQUE: XR ANKLE 3V AP/LAT/OBL REENA, XR FOOT 3V AP/LAT/OBL REENA PATIENT/TECHNOLOGIS T PROVIDED HISTORY: chronic bilateral lateral ankle pain [...] described. Findings suggesting chronic left Achilles tendinosis. Director Of Materials: ALEXI Transcribe Date/Time: Jul 13 2023 2:49P Dictated by : HECTOR KRUSE MD This examination was interpreted and the report reviewed and electronically signed by: SELIN RIGGS MD on Jul 13 2023 5:42PM EST [id number] Normal [facility] XR Ankle - bilateral AP and Lateral and obliqueon 07-13-2023 * * *Final Report* * * DATE OF EXAM: Jul 13 2023 2:17PM LZX 5553 - XR ANKLE 3V AP/LAT/OBL REENA / PROCEDURE REASON: multiple diagnoses * * * * Physician Interpretation * * * * EXAMINATION / TECHNIQUE: XR ANKLE 3V AP/LAT/OBL REENA, XR FOOT 3V AP/LAT/OBL REENA PATIENT/TECHNOLOGIS T PROVIDED HISTORY: chronic bilateral lateral ankle pain [...] on the left suggesting chronic Achilles tendinosis. DIVISION OF RADIOLOGY Provider, [facility] [place] - 07/13/2023 * * *Final Report* * * DATE OF EXAM: Jul 13 2023 2:17PM LZX 5553 - XR ANKLE 3V AP/LAT/OBL REENA / PROCEDURE REASON: multiple diagnoses * * * * Physician Interpretation * * * * EXAMINATION / TECHNIQUE: XR ANKLE 3V AP/LAT/OBL REENA, XR FOOT 3V AP/LAT/OBL REENA PATIENT/TECHNOLOGIS T PROVIDED HISTORY: chronic bilateral lateral ankle pain [...] on the left suggesting chronic Achilles tendinosis. IMPRESSION IMPRESSION: Severe bilateral hindfoot valgus. Degenerative changes, as described. Findings suggesting chronic left Achilles tendinosis. Director Of Materials: PSCB Transcribe Date/Time: Jul 13 2023 2:49P Dictated by : HECTOR KRUSE MD This examination was interpreted and the report reviewed and electronically signed by: SELIN RIGGS MD on Jul 13 2023 5:42PM [facility] XR FOOT 3V AP/LAT/OBL BILon 07-13-2023 XR FOOT 3V AP/LAT/OBL REENA * * *Final Report* * * DATE OF EXAM: Jul 13 2023 2:17PM LZX [id number] - XR FOOT 3V AP/LAT/OBL REENA / PROCEDURE REASON: multiple diagnoses * * * * Physician Interpretation * * * * EXAMINATION / TECHNIQUE: XR ANKLE 3V AP/LAT/OBL REENA, XR FOOT 3V AP/LAT/OBL REENA PATIENT/TECHNOLOGIS T PROVIDED HISTORY: chronic bilateral lateral ankle pain [...] described. Findings suggesting chronic left Achilles tendinosis. Director Of Materials: PSCB Transcribe Date/Time: Jul 13 2023 2:49P Dictated by : HECTOR KRUSE MD This examination was interpreted and the report reviewed and electronically signed by: SELIN RIGGS MD on Jul 13 2023 5:42PM EST [id number] [facility] XR Foot - bilateral AP and L ateral and obliqueon 07-13-2023 * * *Final Report* * * DATE OF EXAM: Jul 13 2023 2:17PM LZX 5555 - XR FOOT 3V AP/LAT/OBL REENA / PROCEDURE REASON: multiple diagnoses * * * * Physician Interpretation * * * * EXAMINATION / TECHNIQUE: XR ANKLE 3V AP/LAT/OBL REENA, XR FOOT 3V AP/LAT/OBL REENA PATIENT/TECHNOLOGIS T PROVIDED HISTORY: chronic bilateral lateral ankle pain [...] on the left suggesting chronic Achilles tendinosis. DIVISION OF RADIOLOGY Provider, [facility] [place] - 07/13/2023 * * *Final Report* * * DATE OF EXAM: Jul 13 2023 2:17PM LZX 5555 - XR FOOT 3V AP/LAT/OBL REENA / PROCEDURE REASON: multiple diagnoses * * * * Physician Interpretation * * * * EXAMINATION / TECHNIQUE: XR ANKLE 3V AP/LAT/OBL REENA, XR FOOT 3V AP/LAT/OBL REENA PATIENT/TECHNOLOGIS T PROVIDED HISTORY: chronic bilateral lateral ankle pain [...] on the left suggesting chronic Achilles tendinosis. IMPRESSION IMPRESSION: Severe bilateral hindfoot valgus. Degenerative changes, as described. Findings suggesting chronic left Achilles tendinosis. Director Of Materials: ALEXI Transcribe Date/Time: Jul 13 2023 2:49P Dictated by : HECTOR KRUSE MD This examination was interpreted and the report reviewed and electronically signed by: SELIN RIGGS MD on Jul 13 2023 5:42PM [facility] Physician Referralon 024 Physician Referral [id number] 565#1.00TIFF Normal [facility] Family Medicine Office/Clini c Noteon 06-27-2023 Family Medicine Office/Clinic Note Chief Complaint Ankle swelling HPI Staff Patient here to F/U on Swollen ankle. X Rays done on 06/07/23 In [facility] on 06/07/23 Symptoms started on 31 of May after doing a lot of house cleaning. has tried elevation and heat at night and tylenol. States she contacted [facility], and stated that they only deal [...] 1 month [address] [place] [address] [id number] Additional Instructions: 1-2 month f/u - 20 min slot Patient Education Heat Therapy, Cjmw-ul-Gbzc Problem List/Past Medical History Ongoing ADHD Ankle swelling Anxiety Asthma Bilateral club feet Henderson of foot Fibromyalgia History of foot surgery History of migraine History of posttraumatic stress disorder (PTSD) Hypokalemia Hypothyroidism Insulin resistance Mild recurrent major depression PCOS (polycystic ovarian syndrome) Smoker Thyroid nodule Historical No qualifying data Procedure/Surgi (more content not included)... Normal [facility] Comment on above: Result Comment: [...] mGy = . DAP = . Normal [facility] CHEMISTRYOrdered By: SYSTEM SYSTEM on 06-25-2023 Free T4 [Mass/Vol] 1.19 ng/dL Normal 0.58 - 1.64 ng/dL Remisol Chem TSH Qn 0.14 m[IU]/L Low 0.34 - 5.60 mcIU/mL Remisol Chem Consent for Treatmenton 06-15 Consent for Treatment [id number] 51#1.00TIFF Normal [facility] Free T4on 06-25-2023 Free T4 [Mass/Vol] 1.19 ng/dL Normal 0.58-1.64 [facility] Comment on above: Order Comment: Free T4 added by Discern Rule due to a TSH result of <0.34 or >5.60. Performed By: #### 2 [id number], [id number] ####[facility] [address] [place] [address] Patient Educationon 06-25-19 24 Patient Education Physical Medicine and Rehabilitation Heat Therapy Heat therapy can help [...] provider. Document Revised: 04/03/2021 Document Reviewed: 04/03/2021 Else[employer]VA Patient Education ? 2022 [employer] Normal [facility] TSH With T4fr Reflexon 06-25 TSH Qn 0.14 m[IU]/L Low 0.34-5.60 [facility] Comment on above: Performed By: #### 2 [id number], [id number] ####[facility] [id number] [place] [address] Ambulatory Visit Summaryon 1 08-08-2022 Ambulatory Visit Summary DOMINIQUE LLAMAS :1985 Visit Date:06/07/2023 Ambulatory Visit Instructions Your Care Team Attending Physician - Nick TAN, Vinnie W. Primary Care Physician - lCint Ortiz DO This Is Your Medications List Mis Prescription (permanent handicap placard) albuterol (Albuterol (Eqv-ProAir [...] AM EST With: Clint Ortiz DO Where: [facility] [place] [facility] [address] [place] [address]-\.br\ Medications\.br\ What How Much When Why Instructions\.br\ Unchanged albuterol (Albuterol (Eqv-ProAir HFA) 90 mcg/ [...] Tablets By Mouth Every day\.br\ Allergies\.br\ Geodon (Anaphylaxis)\.br \ Problems\.br\ Ongoing - Any problem that you are currently receiving treatment for.\.br\ ADHD\.br\ Anxiety\.br\ Asthma\.br\ Henderson of foot\.br\ Fibromyalgia\.br\ History of migraine\.br\ History of posttraumatic stress disorder (PTSD)\.br\ Hypokalemia\.br\ Hypothyroidism\.b r\ Insulin resistance\.br\ Mild recurrent major depression\.br\ PCOS (polycystic ovarian syndrome)\.br\ Smoker\.br\ Thyroid nodule\.br\ Patient Survey\.br\ You may receive a survey via text or e-mail asking about your office visit. Please share your experience with us by completing your survey. We appreciate your feedback and thank you for choosing us for your care.\.br\ \.br\ [facility] XR Ankle 3+ Views Lefton XR Ankle [...] mGy = . DAP = . Normal [facility] CHEMISTRYOrdered By: SYSTEM SYSTEM on 04-20-2023 Anion gap [Moles/Vol] 11 mmol/L Normal 6 - 16 mEq/L FT Remisol Calcium [Mass/Vol] 9.5 mg/dL Normal 8.9 - 11.1 mg/dL FT Remisol Chloride [Moles/Vol] 105 mmol/L Normal 101 - 111 mmol/ L [facility] Remisol CO2 [Moles/Vol] 26 mmol/L Normal 21 - 31 mmol/L FT Remisol Creatinine [Mass/Vol] 0.9 mg/dL Normal 0.5 - 1.3 mg/dL FT Remisol Free T4 [Mass/Vol] 1.27 ng/dL Normal 0.58 - 1.64 ng/dL [facility] Remisol GFR/1.73 sq M.predicted among non-blacks MDRD (S/P/Bld) [Vol rate/Area] 84 mL/min/1.73 m2 Normal >=59mL/min/1.73 m2 [facility] Chem S Comment on above: Interpretive Data: [...] 1.8 mg/dL Normal 1.3 - 2.4 mg/dL [facility] Remisol Potassium [Moles/Vol] 4.2 mmol/L Normal 3.5 - 5.3 mmol/L [facility] Remisol Sodium [Moles/Vol] 138 mmol/L Normal 135 - 145 mmol/L [facility] Remisol TSH Qn 0.02 m[IU]/L Low 0.34 - 5.60 mcIU/mL [facility] Remisol Urea nitrogen [Mass/Vol] 9 mg/dL Normal 5 - 21 mg/dL [facility] Urea nitrogen/Creatinine [Mass ratio] 10 mg/mg Normal 10 - 20 [facility] CHEMISTRYOrdered By: SYSTEM SYSTEM on 12-03-2022 Albumin [...] [Moles/Vol] 108 mmol/L Normal 101 - 111 mmol/ L [facility] Cholesterol [Mass/Vol] 170 mg/dL Normal [...] T4 [Mass/Vol] 1.43 ng/dL Normal 0.58 - 1.64 ng/dL [facility] GFR/1.73 sq M.predicted among [...] mg/mg Low 10 - 20 [facility] PROGESTERONEon 10-17-2022 Progesterone 30.4 ng/mL Normal [facility] Comment on above: Result Comment: Foll icular phase 0.1 - 0.9 Luteal phase 1.8 - 23.9 Ovulation phase 0.1 - 12.0 First trimester 11.0 - 44.3 Second trimester 25.4 - 83.3 Third trimester 58.7 - 214.0 Postmenopausal 0.0 - 0.1 Performed By: #### P DAWNA #### [facility] [address] [place] [address] Dr. Cecy Hernandez PROGESTERONEon 09-16-2022 Progesterone 24.8 ng/mL Normal [facility] Comment on above: Result Comment: Foll icular phase 0.1 - 0.9 Luteal phase 1.8 - 23.9 Ovulation phase 0.1 - 12.0 First trimester 11.0 - 44.3 Second trimester 25.4 - 83.3 Third trimester 58.7 - 214.0 Postmenopausal 0.0 - 0.1 Performed By: #### P DAWNA #### [facility] [address] [address] [address] Cecy Hernandez PAP ACOG PANEL 2: 30 to 65on 09-03-2022 . . Normal [facility] Comment on above: Result Comment: Perf ormed at: WB Performed By: #### P DAWNA #### [facility] [address] [address] [address] Cecy Hernandez Age Gdln ACOG Testing - [facility] Comment on above: Performed By: #### P DAWNA #### [facility] [address] [address] [address] Cecy Hernandez DIAGNOSIS: Comment Normal [facility] Comment on above: Result Comment: NEGA TIVE FOR INTRAEPITHELIAL LESION OR MALIGNANCY. Performed at: WB Performed By: #### P DAWNA #### [facility] [address] [address] [address] Cecy Hernandez HPV Aptima Negative Normal Negative [facility] Comment on above: Result Comment: This nucleic acid amplification test detects fourteen high-risk HPV types (16,18,31,33,35,39,45,51,52,56,58,59,66,68) without differentiation. Performed at: =G Performed By: #### P DAWNA #### [facility] [address] [address] [address] Cecy Hernandez HPV Genotype Reflex Comment Normal [facility] Comment on above: Result Comment: Crit eria not met, HPV Genotype not performed. Performed at: WB Performed By: #### P DAWNA #### [facility] [address] [address] [address] Cecy Hernandez Methodology: Comment Normal [facility] Comment on above: Result Comment: This liquid based ThinPrep(R) pap test was screened with the use of an image guided system. Performed at: WB Performed By: #### P DAWNA #### [facility] [address] [place] [address] Dr. Cecy Hernandez Note: Comment Normal [facility] Comment on above: Result Comment: The [...] WB Performed By: #### P DAWNA #### [facility] [address] [address] [address] Cecy Hernandez Performed by: Comment Normal [facility] Comment on above: Result Comment: Ludivina Maldonado, Therapist Speech Performed at: WB Performed By: #### P DAWNA #### [facility] [address] [place] [address] Dr. Cecy Hernandez Specimen adequacy: Comment Normal [facility] Comment on above: Result Comment: Sati sfactory for evaluation. Endocervical and/or squamous metaplastic cells (endocervical component) are present. Areas of partially obscuring blood are present. Performed at: WB Performed By: #### P DAWNA #### [facility] [address] [place] [address] Dr. Cecy Hernandez Cytology Cervical or vaginal smear or scraping studyOrdered By: Ewelina Marie on 08-26-[address] [facility] PROGESTERONEon 07-16-2022 Progesterone 15.0 ng/mL [facility] Comment on above: Result Comment: Foll icular phase 0.1 - 0.9 Luteal phase 1.8 - 23.9 Ovulation phase 0.1 - 12.0 First trimester 11.0 - 44.3 Second trimester 25.4 - 83.3 Third trimester 58.7 - 214.0 Postmenopausal 0.0 - 0.1 Performed By: #### P ROGRYLEY #### [facility] [address] [place] [address] Dr. Cecy Hernandez CBC AUTO DIFFon 06-27-2022 BASO # 0.0 103/ul Normal 0.0-0.1 [facility] Comment on above: Performed By: #### P DAWNA #### [facility] [address] [place] [address] Dr. Cecy Hernandez Basophils/100 WBC (Bld) 0.5 % Normal 0.2-2.0 [facility] Comment on above: Performed By: #### P DAWNA #### [facility] [address] [place] [address] Dr. Cecy Hernandez EO # 0.3 103/ul Normal 0.0-0.7 [facility] Comment on above: Performed By: #### P DAWNA #### [facility] [address] [place] [address] Dr. Cecy Hernandez Eosinophils/100 WBC (Bld) 3.2 % Normal 0.9-7.0 [facility] Comment on above: Performed By: #### P DAWNA #### [facility] [address] [place] [address] Dr. Cecy Hernandez Erythrocyte distribution width (RBC) [Ratio] 12.4 % Normal 11.0-15.0 [facility] Comment on above: Performed By: #### P DAWNA #### [facility] [address] [place] [address] Dr. Cecy Hernandez Hematocrit (Bld) [Volume fraction] 40.9 % Normal 36.0-48.0 [facility] Comment on above: Performed By: #### P DAWNA #### [facility] [address] [place] [address] Dr. Cecy Hernandez Hemoglobin (Bld) [Mass/Vol] 14.1 g/dL Normal 12.0-16.0 [facility] Comment on above: Performed By: #### P DAWNA #### [facility] [address] [place] [address] Dr. Cecy Hernandez IG # 0.03 10e3/ul Normal 0.00-0.03 [facility] Comment on above: Performed By: #### P DAWNA #### [facility] [address] [place] [address] Dr. Cecy Hernandez IG % 0.3 % Normal 0.0-0.5 [facility] Comment on above: Performed By: #### P DAWNA #### [facility] [address] [place] [address] Dr. Cecy Hernandez LYMPH # 3.6 103/ul Normal 1.2-3.8 [facility] Comment on above: Performed By: #### P DAWNA #### [facility] [address] [place] [address] Dr. Cecy Hernandez Lymphocytes/100 WBC (Bld) 41.4 % Normal 20.5-60.0 [facility] Comment on above: Performed By: #### P DAWNA #### [facility] [address] [place] [address] Dr. Cecy Hernandez MANUAL DIFF REQ NO Normal [facility] Comment on above: Performed By: #### P DAWNA #### [facility] [address] [place] [address] Dr. Cecy Hernandez MCH (RBC) [Entitic mass] 29.0 pg Normal 26.7-34.0 [facility] Comment on above: Performed By: #### P DAWNA #### [facility] [address] [place] [address] Dr. Cecy Hernandez MCHC (RBC) [Mass/Vol] 34.5 g/dL Normal 29.9-35.2 [facility] Comment on above: Performed By: #### P DAWNA #### [facility] [address] [place] [address] Dr. Cecy Hernandez MCV (RBC) [Entitic vol] 84.2 fL Normal 81.0-99.0 [facility] Comment on above: Performed By: #### P DAWNA #### [facility] [address] [place] [address] Dr. Cecy Hernadnez MONO # 0.5 103/ul Normal 0.3-0.8 [facility] Comment on above: Performed By: #### P DAWNA #### [facility] [address] [place] [address] Dr. Cecy Hernandez Monocytes/100 WBC (Bld) 5.9 % Normal 1.7-12.0 [facility] Comment on above: Performed By: #### P DAWNA #### [facility] [address] [place] [address] Dr. Cecy Hernandez NEUT # 4.2 103/ul Normal 1.4-6.5 [facility] Comment on above: Performed By: #### P DAWNA #### [facility] [address] [place] [address] Dr. Cecy Hernandez Neutrophils/100 WBC (Bld) 48.7 % Normal 43.0-75.0 [facility] Comment on above: Performed By: #### P DAWNA #### [facility] [address] [place] [address] Dr. Cecy Hernandez Platelet mean volume (Bld) [Entitic vol] 10.0 fL Normal 9.5-13.5 [facility] Comment on above: Performed By: #### P DAWNA #### [facility] [address] [place] [address] Dr. Cecy Hernandez PLT 283 103/ul Normal 150-450 [facility] Comment on above: Performed By: #### P DAWNA #### [facility] [address] [place] [address] Dr. Cecy Hernandez RBC 4.86 106/ul Normal 4.20-5.40 [facility] Comment on above: Performed By: #### P DAWNA #### [facility] [address] [place] [address] Dr. Cecy Hernandez WBC 8.6 103/ul Normal 4.0-11.0 [facility] Comment on above: Performed By: #### P DAWNA #### [facility] [address] [place] [address] Dr. Cecy Hernandez ER URINE PROFILEon 3 Bilirubin Ql (U) Negative Normal NEGATIVE [facility] Comment on above: Performed By: #### P DAWNA #### [facility] [address] [place] [address] Dr. Cecy Hernandez Clarity (U) CLEAR Normal CLEAR [facility] Comment on above: Performed By: #### P ROGES #### [facility] [address] [place] [address] Dr. Cecy Hernandez Color (U) LT. YELLOW Normal YELLOW [facility] Comment on above: Performed By: #### P SHERIES #### [facility] [address] [place] [address] Dr. Cecy Hernandez ERUAHD A micrscopic examination will be performed if indicated. Normal [facility] Comment on above: Performed By: #### P SHERIES #### [facility] [address] [place] [address] Dr. Cecy Hernandez Glucose Ql (U) Negative Normal NEGATIVE [facility] Comment on above: Performed By: #### P DAWNA #### [facility] [address] [place] [address] Dr. Cecy Hernandez Hemoglobin Ql (U) TRACE-INTACT Abnormal NEGATIVE [facility] Comment on above: Performed By: #### P DAWNA #### [facility] [address] [place] [address] Dr. Cecy Hernandez Ketones Ql (U) Negative Normal NEGATIVE [facility] Comment on above: Performed By: #### P DAWNA #### [facility] [address] [place] [address] Dr. Cecy Hernandez LEUKOCYTES Negative Normal NEGATIVE [facility] Comment on above: Performed By: #### P DAWNA #### [facility] [address] [place] [address] Dr. Cecy Hernandez Nitrite Ql (U) Negative Normal NEGATIVE [facility] Comment on above: Performed By: #### P DAWNA #### [facility] [address] [place] [address] Dr. Cecy Hernandez pH (U) 7.0 [pH] Normal 5-9 [facility] Comment on above: Performed By: #### P DAWNA #### [facility] [address] [place] [address] Dr. Cecy Hernandez SPEC GRAVITY 1.010 Normal 1.005-<=1.025 [facility] Comment on above: Performed By: #### P DAWNA #### [facility] [address] [address] [address] Cecy Hernandez UA PROTEIN Negative Normal NEGATIVE/ TRACE [facility] Comment on above: Performed By: #### P DAWNA #### [facility] [address] [address] [address] Cecy Hernandez UR MICRO IND INDICATED Normal [facility] Comment on above: Performed By: #### P DAWNA #### [facility] [address] [place] [address] Dr. Cecy Hernandez Urobilinogen Qn (U) 0.2 {Jone'U}/dL Normal 0.2 - 1. 0 [facility] Comment on above: Performed By: #### P DAWNA #### [facility] [address] [place] [address] Dr. Cecy Hernandez PREG HCG QUALon 06-27-2022 , QUAL Negative Normal NEGATIVE [facility] Comment on above: Performed By: #### P REG #### [facility] [address] [place] [address] Dr. Cecy Hernandez PROF CHEM 8 (BAS METB)on Anion gap [Moles/Vol] 12.9 mmol/L Normal [facility] Comment on above: Performed By: #### B MP #### [facility] [address] [place] [address] Dr. Cecy Hernandez Calcium [Mass/Vol] 9.0 mg/dL Normal 8.5-10.1 [facility] Comment on above: Performed By: #### B MP #### [facility] [address] [place] [address] Dr. Cecy Heranndez Chloride [Moles/Vol] 101 mmol/L Normal 98-107 [facility] Comment on above: Performed By: #### B MP #### [facility] [address] [place] [address] Dr. Cecy Hernandez CO2 [Moles/Vol] 26.7 mmol/L Normal 21.0-32.0 [facility] Comment on above: Performed By: #### B MP #### [facility] [address] [address] [address] Cecy Hernandez Creatinine [Mass/Vol] 0.91 mg/dL Normal 0.55-1.02 [facility] Comment on above: Performed By: #### B MP #### [facility] [address] [address] [address] Cecy Hernandez EGFR-AF [facility] >60 Normal >=60 [facility] Comment on above: Performed By: #### B MP #### [facility] [address] [address] [address] Cecy Hernandez EGFR-NON AF [facility] >60 Normal >=60 [facility] Comment on above: Performed By: #### B MP #### [facility] [address] [place] [address] Dr. Cecy Hernandez Glucose [Mass/Vol] 86 mg/dL Normal 74-106 [facility] Comment on above: Performed By: #### B MP #### [facility] [address] [place] [address] Dr. Cecy Hernandez Potassium [Moles/Vol] 3.6 mmol/L Normal 3.5-5.1 [facility] Comment on above: Performed By: #### B MP #### [facility] [address] [place] [address] Dr. Cecy Hernandez Sodium [Moles/Vol] 137 mmol/L Normal 136-[address] [facility] Comment on above: Performed By: #### B MP #### [facility] [address] [place] [address] Dr. Cecy Hernandez Urea nitrogen [Mass/Vol] 14.0 mg/dL Normal 7.0-18.0 [facility] Comment on above: Performed By: #### B MP #### [facility] [address] [place] [address] Dr. Cecy Hernandez Urea nitrogen/Creatinine [Mass ratio] 15.4 mg/mg Normal [facility] Comment on above: Performed By: #### B MP #### [facility] [address] [place] [address] Dr. Cecy Hernandez URINE MICROSCOPIC ONLYon BACTERIA NONE SEEN Normal NONE SEEN [facility] Comment on above: Performed By: #### P ROGES #### [facility] [address] [place] [address] Dr. Cecy Hernandez Bacteria identified Cx Nom (U) NOT INDICATED Normal [facility] Comment on above: Performed By: #### P ROGES #### [facility] [address] [place] [address] Dr. Cecy Hernandez CAST NONE SEEN Normal NONE SEEN [facility] Comment on above: Performed By: #### P ROGES #### [facility] [address] [place] [address] Dr. Cecy Hernandez Crystals LM Nom (Urine sed) NONE SEEN Normal NONE SEEN [facility] Comment on above: Performed By: #### P ROGES #### [facility] [address] [place] [address] Dr. Cecy Hernandez Epithelial cells LM Ql (Urine sed) FEW Abnormal NONE SEEN /RARE [facility] Comment on above: Performed By: #### P ROGES #### [facility] [address] [place] [address] Dr. Cecy Hernandez MUCOUS NONE SEEN Normal NONE SEEN [facility] Comment on above: Performed By: #### P ROGES #### [facility] [address] [place] [address] Dr. Cecy Hernandez RBC 0-2 Normal 0-2 [facility] Comment on above: Performed By: #### P ROGES #### [facility] [address] [place] [address] Dr. Cecy Hernandez WBC 2-5 Abnormal NONE SEEN [facility] Comment on above: Performed By: #### P ROGES #### [facility] [address] [place] [address] Dr. Cecy Hernandez US PELVIS TRANSVAGon 023 [...] by: KEYANNA SHARPE Date: 2022-06-27 19:44 Normal [facility] FREE T3on 05-19-2022 FREE T3 2.17 pg/mlL Critically low 2.18-3.98 [facility] Comment on above: Performed By: #### B MP, TSH, FT3 #### [facility] [address] [place] [address] Dr. Cecy Hernandez PROF CHEM 8 (BAS METB)on Anion gap [Moles/Vol] 11.5 mmol/L Normal [facility] Comment on above: Performed By: #### B MP, TSH, FT3 #### [facility] [address] [place] [address] Dr. Cecy Hernandez Calcium [Mass/Vol] 8.7 mg/dL Normal 8.5-10.[address] [facility] Comment on above: Performed By: #### B MP, TSH, FT3 #### [facility] [address] [address] [address] Cecy Hernandez Chloride [Moles/Vol] 102 mmol/L Normal 98-107 [facility] Comment on above: Performed By: #### B MP, TSH, FT3 #### [facility] [address] [place] [address] Dr. Cecy Hernandez CO2 [Moles/Vol] 26.3 mmol/L Normal 21.0-32.0 [facility] Comment on above: Performed By: #### B MP, TSH, FT3 #### [facility] [address] [address] [address] Cecy Hernandez Creatinine [Mass/Vol] 0.82 mg/dL Normal 0.55-1.02 [facility] Comment on above: Performed By: #### B MP, TSH, FT3 #### [facility] [address] [address] [address] Cecy Hernandez EGFR-AF [facility] >60 Normal >=60 [facility] Comment on above: Performed By: #### B MP, TSH, FT3 #### [facility] [address] [address] [address] Cecy Hernandez EGFR-NON AF [facility] >60 Normal >=60 [facility] Comment on above: Performed By: #### B MP, TSH, FT3 #### [facility] [address] [address] [address] Cecy Hernandez Glucose [Mass/Vol] 106 mg/dL Normal 74-106 [facility] Comment on above: Performed By: #### B MP, TSH, FT3 #### [facility] [address] [address] [address] Cecy Hernandez Potassium [Moles/Vol] 3.8 mmol/L Normal 3.5-5.1 [facility] Comment on above: Performed By: #### B MP, TSH, FT3 #### [facility] [address] [address] [address] Cecy Hernandez Sodium [Moles/Vol] 136 mmol/L Normal 136-[address] [facility] Comment on above: Performed By: #### B MP, TSH, FT3 #### [facility] [address] [address] [address] Cecy Hernandez Urea nitrogen [Mass/Vol] 8.0 mg/dL Normal 7.0-18.0 [facility] Comment on above: Performed By: #### B MP, TSH, FT3 #### [facility] [address] [address] [address] Cecy Hernandez Urea nitrogen/Creatinine [Mass ratio] 9.8 mg/mg Normal [facility] Comment on above: Performed By: #### B MP, TSH, FT3 #### [facility] [address] [place] [address] Dr. Cecy Hernandez TSHon 05-19-2022 TSH 0.415 uIU/mL Normal 0.358-3.740 [facility] Comment on above: Performed By: #### B MP, TSH, FT3 #### [facility] [address] [place] [address] Dr. Cecy Hernandez PROGESTERONEon 05-13-2022 Progesterone 15.9 ng/mL Normal [facility] Comment on above: Result Comment: Foll icular phase 0.1 - 0.9 Luteal phase 1.8 - 23.9 Ovulation phase 0.1 - 12.0 First trimester 11.0 - 44.3 Second trimester 25.4 - 83.3 Third trimester 58.7 - 214.0 Postmenopausal 0.0 - 0.1 Performed By: #### P DAWNA #### [facility] [address] [place] [address] Dr. Cecy Hernandez PROGESTERONEon 04-12-2022 Progesterone 9.8 ng/mL Normal [facility] Comment on above: Result Comment: Foll icular phase 0.1 - 0.9 Luteal phase 1.8 - 23.9 Ovulation phase 0.1 - 12.0 First trimester 11.0 - 44.3 Second trimester 25.4 - 83.3 Third trimester 58.7 - 214.0 Postmenopausal 0.0 - 0.1 Performed By: #### P ROGES #### [facility] [address] [place] [address] Dr. Cecy Hernandez PROGESTERONEon 03-12-2022 Progesterone 13.8 ng/mL Normal [facility] Comment on above: Result Comment: Foll icular phase 0.1 - 0.9 Luteal phase 1.8 - 23.9 Ovulation phase 0.1 - 12.0 First trimester 11.0 - 44.3 Second trimester 25.4 - 83.3 Third trimester 58.7 - 214.0 Postmenopausal 0.0 - 0.1 Performed By: #### P ROGES #### [facility] [address] [place] [address] Dr. Cecy Hernandez PROGESTERONEon 02-12-2022 Progesterone 12.7 ng/mL Normal [facility] Comment on above: Result Comment: Foll icular phase 0.1 - 0.9 Luteal phase 1.8 - 23.9 Ovulation phase 0.1 - 12.0 First trimester 11.0 - 44.3 Second trimester 25.4 - 83.3 Third trimester 58.7 - 214.0 Postmenopausal 0.0 - 0.1 Performed By: #### P DAWNA #### [facility] [address] [address] [address] Cecy Hernandez PROGESTERONEon 01-11-2022 Progesterone 19.2 ng/mL Normal [facility] Comment on above: Result Comment: Foll icular phase 0.1 - 0.9 Luteal phase 1.8 - 23.9 Ovulation phase 0.1 - 12.0 First trimester 11.0 - 44.3 Second trimester 25.4 - 83.3 Third trimester 58.7 - 214.0 Postmenopausal 0.0 - 0.1 Performed By: #### P DAWNA #### [facility] [address] [place] [address] Dr. Cecy Hernandez COVID Quick Testingon 2021 Result Positive [employer] Other Quick Fluon 11-15-2021 FLUAV Ab CF (S) [Titer] Negative [employer] Other FLUBV Ab CF (S) [Titer] Negative [employer] Other FREE T3on 11-14-2021 FREE T3 2.17 pg/mlL Critically low 2.18-3.98 [facility] Comment on above: Performed By: #### P DAWNA #### [facility] [address] [address] [address] Cecy Hernandez TSHon 11-14-2021 TSH 0.265 uIU/mL Critically low 0.358-3.740 [facility] Comment on above: Performed By: #### P DAWNA #### [facility] [address] [address] [address] Cecy Hernandez TSH RANGE SEE BELOW Normal [facility] Comment on above: Result Comment: <0.3 4 UIU/ml HYPERTHYROID 0.34-5.60 UIU/ml EUTHYROID >5.60 UIU/ml HYPOTHYROID Performed By: #### P DAWNA #### [facility] [address] [address] [address] Cecy Hernandez PROGESTERONEon 10-26-2021 Progesterone 0.1 ng/mL Normal [facility] Comment on above: Result Comment: Foll icular phase 0.1 - 0.9 Luteal phase 1.8 - 23.9 Ovulation phase 0.1 - 12.0 First trimester 11.0 - 44.3 Second trimester 25.4 - 83.3 Third trimester 58.7 - 214.0 Postmenopausal 0.0 - 0.1 Performed By: #### P DAWNA #### [facility] [address] [place] [address] Dr. Cecy Hernandez XR shoulder LT min 2V*on XR shoulder LT min 2V* [facility] [place] [address] XRay Report Signed Patient: Dominique Crenshaw MR#: [id number] 4 : 1985 Acct:[id number] Age/Sex: 36 / F ADM Date: 08/15/21 Loc[place] [facility] [place] Room: Type: [facility] Attending Dr: Petros Lion MD Ordering [...] Giovani Nelson M.D.08/15/2021 1:32 PM Dictation Location: [place] [address] Transcribed By: [facility] 08/15/21 133 Dictated By: Giovani Nelson DO 08/15/21 1331 Signed By: 08/15/21 1332 [facility] Vital Signs Date Time Vital Sign Value Performing Clinician Facility 07-28-2024 15:13-0500 Body height 152.4 cm Jayce Trevino MD Work Phone: [facility] 07-28-2024 15:13-0500 Body mass index (BMI) [Ratio] 39.49 kg/m2 Jayce Trevino MD Work Phone: [facility] 07-28-2024 15:13-0500 Body weight 91.72 kg Jayce Trevino MD Work Phone: [facility] 07-28-2024 15:13-0500 Diastolic blood pressure 80 mm[Hg] Jayce Trevino MD Work Phone: [facility] 07-28-2024 15:13-0500 Heart rate 94 /min Jayce Trevino MD Work Phone: [facility] 07-28-2024 15:13-0500 Systolic blood pressure 110 mm[Hg] Jayce Trevino MD Work Phone: [facility] 07-19-2024 12:05-0500 Diastolic blood pressure 88 mm[Hg] [address] 07-19-2024 12:05-0500 Heart rate 63 /min [address] 07-19-2024 12:05-0500 Respiratory rate 20 /min [address] 07-19-2024 12:05-0500 Systolic blood pressure 130 mm[Hg] [address] 07-19-2024 11:49-0500 Body height 152.[address] 07-19-2024 11:49-0500 Body mass index (BMI) [Ratio] 39.61 kg/m2 [address] 07-19-2024 11:49-0500 Body weight [address] 07-19-2024 11:49-0500 SaO2% (BldA) [Mass fraction] 100 % [address] 06-23-2024 09:00-0500 Diastolic blood pressure 66 mm[Hg] LIZZIEJuancarlos THAKKARKI [facility] 06-23-2024 09:00-0500 Heart rate 83 /min LIZZIE BRISCOEEMILYKI [facility] 06-23-2024 09:00-0500 SaO2% (BldA) [Mass fraction] 97 % LIZZIE OQUENDOBAOKI [facility] 06-23-2024 09:00-0500 Systolic blood pressure 122 mm[Hg] LIZZIE OQUENDOBAOKI [facility] 05-26-2024 14:35-0500 Blood Pressure Location Alonso Kirnus [facility] 05-26-2024 14:35-0500 Diastolic blood pressure 82 mm[Hg] Alonso Kirnus [facility] 05-26-2024 14:35-0500 Heart rate 90 /min Alonso Kirnus [facility] 05-26-2024 14:35-0500 Respiratory rate 16 /min Alonso Kirnus [facility] 05-26-2024 14:35-0500 SaO2% (BldA) [Mass fraction] 98 % Alonso Kirnus [facility] 05-26-2024 14:35-0500 Systolic blood pressure 124 mm[Hg] Alonso Kirnus [facility] 04-11-2024 13:09-0400 Diastolic blood pressure 98 mm[Hg] Alonso Kirnus [facility] 04-11-2024 13:09-0400 Heart rate 99 /min Alonso Kirnus [facility] 04-11-2024 13:09-0400 Respiratory rate 16 /min Alonso Twannus [facility] 04-11-2024 13:09-0400 SaO2% (BldA) [Mass fraction] 98 % Alonso Twannus [facility] 04-11-2024 13:09-0400 Systolic blood pressure 138 mm[Hg] Alonso Twannus [facility] 03-22-2024 14:50-0400 Blood Pressure Location LIZZIE MEDINA [facility] 03-22-2024 14:50-0400 Diastolic blood pressure 67 mm[Hg] LIZZIE MEDINA [facility] 03-22-2024 14:50-0400 Heart rate 105 /min LIZZIE MEDINA [facility] 03-22-2024 14:50-0400 Respiratory rate 15 /min LIZZIE MEDINA [facility] 03-22-2024 14:50-0400 SaO2% (BldA) [Mass fraction] 98 % LIZZIE MEDINA [facility] 03-22-2024 14:50-0400 Systolic blood pressure 122 mm[Hg] LIZZIE MEDINA [facility] 03-04-2024 11:56-0400 Blood Pressure Location Clint Ortiz [facility] 03-04-2024 11:56-0400 Diastolic blood pressure 86 mm[Hg] Clint Ortiz [facility] 03-04-2024 11:56-0400 Heart rate 100 /min Clint Ortiz [facility] 03-04-2024 11:56-0400 SaO2% (BldA) [Mass fraction] 96 % Energy Angel [facility] 03-04-2024 11:56-0400 Systolic blood pressure 120 mm[Hg] Energy Angel [facility] 02-23-2024 11:03-0400 Blood Pressure Location Energy [facility] 02-23-2024 11:03-0400 Diastolic blood pressure 80 mm[Hg] Energy Angel [facility] 02-23-2024 11:03-0400 Heart rate 80 /min [facility]-23-[facility] 11:03-0400 Respiratory rate 16 /min Clint [facility] 02-23-2024 11:03-0400 SaO2% (BldA) [Mass fraction] 98 % Energy Angel [facility] 02-23-2024 11:03-0400 Systolic blood pressure 118 mm[Hg] Energy Angel [facility] 02-22-2024 14:04-0400 Body mass index (BMI) [Ratio] 40.19 kg/m2 Mikal Nas DO Work Phone: [facility] 02-22-2024 14:04-0400 Body weight 93.35 kg Mikal Nas DO Work Phone: [facility] 02-22-2024 14:04-0400 Diastolic blood pressure 70 mm[Hg] Mikal Nas DO Work Phone: [facility] 02-22-2024 14:04-0400 Systolic blood pressure 130 mm[Hg] Mikal Nas DO Work Phone: [facility] 01-28-2024 15:44-0400 Blood Pressure Location [facility] 01-28-2024 15:44-0400 Diastolic blood pressure 100 mm[Hg] [facility] 01-28-2024 15:44-0400 Heart rate 87 /min [facility] 01-28-2024 15:44-0400 SaO2% (BldA) [Mass fraction] 98 % [facility] 01-28-2024 15:44-0400 Systolic blood pressure 132 mm[Hg] [facility] 12-23-2023 14:07-0400 Blood Pressure Location [facility] 12-23-2023 14:07-0400 Diastolic blood pressure 90 mm[Hg] [facility] 12-23-2023 14:07-0400 Heart rate 95 /min [facility] 12-23-2023 14:07-0400 SaO2% (BldA) [Mass fraction] 98 % [facility] 12-23-2023 14:07-0400 Systolic blood pressure 134 mm[Hg] [facility] 12-21-2023 03:00-0400 Body temperature 97.88 [degF] Ho Carmen [facility] 12-21-2023 03:00-0400 Diastolic blood pressure 99 mm[Hg] Ho Carmen [facility] 12-21-2023 03:00-0400 Heart rate 96 /min Ho Carmen [facility] 12-21-2023 03:00-0400 Respiratory rate 16 /min Ho Carmen [facility] 12-21-2023 03:00-0400 SaO2% (BldA) [Mass fraction] 100 % Ho Carmen [facility] 12-21-2023 03:00-0400 Systolic blood pressure 148 mm[Hg] Ho Carmen [facility] 10-16-2023 10:53-0400 Blood Pressure Location [facility] 10-16-2023 10:53-0400 Diastolic blood pressure 90 mm[Hg] [facility] 10-16-2023 10:53-0400 Heart rate 102 /min [facility] 10-16-2023 10:53-0400 SaO2% (BldA) [Mass fraction] 98 % [facility] 10-16-2023 10:53-0400 Systolic blood pressure 128 mm[Hg] [facility] 06-25-2023 15:02-0500 Blood Pressure Location [facility] 06-25-2023 15:02-0500 Diastolic blood pressure 90 mm[Hg] [facility] 06-25-2023 15:02-0500 Heart rate 106 /min [facility] 06-25-2023 15:02-0500 SaO2% (BldA) [Mass fraction] 99 % [facility] 06-25-2023 15:02-0500 Systolic blood pressure 120 mm[Hg] [facility] 06-07-2023 09:20-0500 Blood Pressure Location Vinnie Romero [facility] 06-07-2023 09:20-0500 Body temperature 97.88 [degF] Vinnie Romero [facility] 06-07-2023 09:20-0500 Diastolic blood pressure 79 mm[Hg] Vinnie Romero [facility] 06-07-2023 09:20-0500 Heart rate 89 /min [facility] 06-07-2023 09:20-0500 SaO2% (BldA) [Mass fraction] 99 % Vinnie Romero [facility] 06-07-2023 09:20-0500 Systolic blood pressure 119 mm[Hg] Vinnie Romero [facility] 04-21-2023 08:02-0500 Blood Pressure Location [facility] 04-21-2023 08:02-0500 Diastolic blood pressure 80 mm[Hg] [facility] 04-21-2023 08:02-0500 Heart rate 73 /min [facility] 04-21-2023 08:02-0500 SaO2% (BldA) [Mass fraction] 98 % [facility] 04-21-2023 08:02-0500 Systolic blood pressure 114 mm[Hg] [facility] 02-18-2023 09:29-0400 Blood Pressure Location [facility] 02-18-2023 09:29-0400 Diastolic blood pressure 80 mm[Hg] [facility] 02-18-2023 09:29-0400 Heart rate 102 /min [facility] 02-18-2023 09:29-0400 Respiratory rate 16 /min [facility] 02-18-2023 09:29-0400 SaO2% (BldA) [Mass fraction] 98 % [facility] 02-18-2023 09:29-0400 Systolic blood pressure 120 mm[Hg] [facility] 01-07-2023 10:44-0400 Blood Pressure Location [facility] 01-07-2023 10:44-0400 Diastolic blood pressure 84 mm[Hg] [facility] 01-07-2023 10:44-0400 Heart rate 89 /min [facility] 01-07-2023 10:44-0400 SaO2% (BldA) [Mass fraction] 97 % [facility] 01-07-2023 10:44-0400 Systolic blood pressure 120 mm[Hg] [facility] 12-03-2022 11:28-0400 Blood Pressure Location [facility] 12-03-2022 11:28-0400 Diastolic blood pressure 86 mm[Hg] [facility] 12-03-2022 11:28-0400 Heart rate 97 /min [facility] 12-03-2022 11:28-0400 SaO2% (BldA) [Mass fraction] 96 % [facility] 12-03-2022 11:28-0400 Systolic blood pressure 128 mm[Hg] [facility] 09-29-2022 08:54-0400 Blood Pressure Location [facility] 09-29-2022 08:54-0400 Body temperature 98.78 [degF] [facility] 09-29-2022 08:54-0400 Diastolic blood pressure 82 mm[Hg] [facility] 09-29-2022 08:54-0400 Heart rate 92 /min [facility] 09-29-2022 08:54-0400 SaO2% (BldA) [Mass fraction] 99 % [facility] 09-29-2022 08:54-0400 Systolic blood pressure 118 mm[Hg] [facility] 11-15-2021 19:00-0400 Body height 152.4 cm Melissa Weaver Other [facility] Other 11-15-2021 19:00-0400 Body mass index (BMI) [Ratio] 40.42 kg/m2 Melissa Weaver Other [facility] Other 11-15-2021 19:00-0400 Body temperature 96 [degF] Melissa Weaver Other [facility] Other 11-15-2021 19:00-0400 Body weight 93.9 kg Melissa Owen Other [facility] Other 11-15-2021 19:00-0400 SaO2% (BldA) [Mass fraction] 98 % Melissa Weaver Other [facility] Other Encounters Encounter Date Encounter Type Care Provider Facility Start: 03-01-2025 ambulatory Clint Caraballo ty:[facility] Start: 11-21-2024 ambulatory HOSE SUSPENDER CUTTER-C LIZZIE MEDINA Facility:[facility] Start: 08-26-2024 End: 08-26-2024 ambulatory NITHYA RICKS Not Available Start: 08-24-2024 End: 08-24-2024 ambulatory Jojo uPgh [facility] Start: 08-22-2024 End: 08-22-2024 ambulatory HOSE SUSPENDER CUTTER-C LIZZIE MEDINA Facility:[facility] Start: 08-19-2024 End: 08-19-2024 ambulatory Nithya Ricks Facility:[facility] Start: 08-15-2024 End: 08-15-2024 ambulatory Jojo Pugh [facility] Start: 08-15-2024 End: 08-15-2024 Patient encounter procedure Jojo Pugh [facility] Start: 08-05-2024 End: 08-05-2024 ambulatory Jojo Pugh Facility[facility] Start: 08-05-2024 End: 08-05-2024 Patient encounter procedure Jojo Pugh [facility] Start: 07-28-2024 End: 07-28-2024 Office outpatient new 60 minutes Jayce Trevino MD Work Phone: [facility] Comment on above: Abnormal EKG (Primar y Dx); Palpitations; SVT (supraventricular tachycardia) ([facility] BMI 39.0-39.9,adult; Current smoker; Implantable loop recorder present Start: 07-28-2024 End: 07-28-2024 ambulatory JAYCE [facility] Start: 07-28-2024 End: 07-28-2024 ambulatory Alonso Winn Facility:[facility] Start: 07-28-2024 End: 07-28-2024 Patient encounter procedure Alonso Winn [facility] Start: 07-19-2024 End: 07-19-2024 ambulatory [facility] Start: 07-19-2024 End: 07-19-2024 Subsequent hospital visit by physician Melissa [id number] [facility] Comment on above: Palpitations; Chest pain, unspecified; Abnormal result of other cardiovascular function study Start: 07-18-2024 End: 07-18-2024 ambulatory Jojo Pugh [facility] Start: 07-18-2024 End: 07-18-2024 Patient encounter procedure Jojo Pugh [facility] Start: 07-07-2024 End: 07-07-2024 ambulatory HOSE SUSPENDER CUTTER-C LIZZIE MEDINA Facility:[facility] Start: 07-07-2024 End: 07-07-2024 Patient encounter procedure LIZZIE MEDINA [facility] Start: 06-29-2024 ambulatory Jojo Pugh Facility:[facility] Start: 06-23-2024 End: 06-23-2024 ambulatory LIZZIE MEDINA Facility:[facility] Start: 06-23-2024 End: 06-23-2024 Patient encounter procedure LIZZIE MEDINA [facility] Start: 06-15-2024 ambulatory Jojo Pugh [facility] Start: 06-03-2024 End: 06-03-2024 ambulatory Jojo Pugh Facility:[facility] Start: 06-03-2024 End: 06-03-2024 Patient encounter procedure Jojo Pugh [facility] Start: 06-02-2024 ambulatory Clint Lee ty:[facility] Start: 05-27-2024 End: 05-27-2024 ambulatory MD Alonso Winn Facility:[facility] Start: 05-27-2024 End: 05-27-2024 Patient encounter procedure Alonso Winn [facility] Start: 05-26-2024 End: 05-26-2024 ambulatory MD Alonso Winn Facility:[facility] Start: 05-26-2024 End: 05-26-2024 Patient encounter procedure Alonso Winn [facility] Start: 05-20-2024 End: 05-20-2024 ambulatory Jojo Pguh [facility] Start: 05-20-2024 End: 05-20-2024 Patient encounter procedure Jojo Pugh [facility] Start: 05-02-2024 End: 05-02-2024 ambulatory Jojo Pugh [facility] Start: 05-02-2024 End: 05-02-2024 Patient encounter procedure Jojo Pugh [facility] Start: 04-28-2024 End: 04-28-2024 Admission to same day surgery center Alonso Winn [facility] Start: 04-28-2024 End: 04-28-2024 ambulatory MD Alonso Winn Facility:[facility] Start: 04-27-2024 End: 04-27-2024 ambulatory MD Alonso Winn Facility:[facility] Start: 04-27-2024 End: 04-27-2024 Patient encounter procedure Alonso Winn [facility] Start: 04-22-2024 End: 04-22-2024 ambulatory Jojo Pugh [facility] Start: 04-22-2024 End: 04-22-2024 Patient encounter procedure Jojo Pugh [facility] Start: 04-11-2024 End: 04-11-2024 ambulatory MD Alonso Winn Facility:[facility] Start: 04-11-2024 End: 04-11-2024 Patient encounter procedure Alonso Winn [facility] Start: 04-08-2024 End: 04-08-2024 ambulatory Jojo Pugh [facility] Start: 04-08-2024 End: 04-08-2024 Patient encounter procedure Jojo Pugh [facility] Start: 03-25-2024 End: 03-25-2024 ambulatory Jojo Pugh [facility] Start: 03-25-2024 End: 03-25-2024 Patient encounter procedure Jojo Pugh [facility] Start: 03-22-2024 End: 03-22-2024 ambulatory LIZZIE MEDINA Facility:[facility] Start: 03-22-2024 End: 03-22-2024 Patient encounter procedure LIZZIE MEDINA [facility] Start: 03-11-2024 End: 03-11-2024 ambulatory Jojo Pugh [facility] Start: 03-11-2024 End: 03-11-2024 Patient encounter procedure Jojo Pugh [facility] Start: 03-04-2024 End: 03-04-2024 ambulatory Clint Araceli Angel Facility:[facility] Start: 03-04-2024 End: 03-04-2024 Patient encounter procedure Clint Ortiz [facility] Start: 02-26-2024 End: 02-26-2024 ambulatory Jojo Pugh [facility] Start: 02-26-2024 End: 02-26-2024 Patient encounter procedure Jojo Pugh [facility] Start: 02-23-2024 End: 02-23-2024 ambulatory Clint Ortiz Facility:[facility] Start: 02-23-2024 End: 02-23-2024 Patient encounter procedure Clint Ortiz [facility] Start: 02-23-2024 End: 02-23-2024 Well adult monitoring check done Clint Ortiz [facility] Start: 02-22-2024 End: 02-22-2024 Bamboo flowsheet Mikal Nas DO Work Phone: [facility] Start: 02-22-2024 End: 02-22-2024 Bamboo flowsheet Mikal Nas DO Work Phone: [facility] Start: 02-22-2024 End: 02-22-2024 Office outpatient visit 15 minutes Mikal Nas DO Work Phone: [facility] Comment on above: Female infertility Start: 02-22-2024 End: 02-22-2024 ambulatory MIKAL NAS Not Available Start: 02-11-2024 End: 02-11-2024 ambulatory Mikal R NAS Facility:[facility] Start: 02-11-2024 End: 02-11-2024 Patient encounter procedure Mikal LOVELL [facility] Start: 02-03-2024 End: 02-03-2024 ambulatory Jojo Pugh [facility] Start: 02-03-2024 End: 02-03-2024 Patient encounter procedure Jojo Pugh [facility] Start: 01-28-2024 End: 01-28-2024 ambulatory Clint Ortiz Facility:[facility] Start: 01-28-2024 End: 01-28-2024 Patient encounter procedure Clint Ortiz [facility] Start: 01-27-2024 End: 01-27-2024 ambulatory Jojo Pugh [facility] Start: 01-27-2024 End: 01-27-2024 Patient encounter procedure Jojo Pugh [facility] Start: 01-18-2024 ambulatory Mikalceline LOVELL Facility:[facility] Start: 12-25-2023 End: 12-25-2023 ambulatory Angelique Du RT(R) Radiology Comment on above: Radiology XR Start: 12-25-2023 End: 12-25-2023 Patient encounter procedure Angelique Du RT(R) Radiology Comment on above: Peroneal tendinitis of left lower extremity (Primary Dx); Club foot of both lower extremities; DJD (degenerative joint disease), ankle and foot, left; DJD (degenerative joint disease), ankle and foot, right; Pain in both feet Start: 12-25-2023 End: 12-25-2023 Subsequent hospital visit by physician Brian Song Work Phone: Radiology Comment on above: Left leg pain [M79.6 05] Start: 12-23-2023 End: 12-23-2023 ambulatory Clint Ortiz Facility:[facility] Start: 12-23-2023 End: 12-23-2023 Patient encounter procedure Clint Ortiz [facility] Start: 12-21-2023 End: 12-21-2023 ambulatory DO Ho Morales Facility:[facility] Start: 12-21-2023 End: 12-21-2023 Patient encounter procedure Ho Morales [facility] Start: 12-21-2023 End: 12-21-2023 Emergency department patient visit Ho Morales [facility] Start: 10-16-2023 End: 10-16-2023 ambulatory Clint Ortiz Facility:[facility] Start: 10-16-2023 End: 10-16-2023 Patient encounter procedure Clint Ortiz [facility] Start: 10-15-2023 End: 10-15-2023 ambulatory Clint Ortiz Facility:[facility] Start: 10-15-2023 End: 10-15-2023 Patient encounter procedure Clint Ortiz [facility] Start: 08-20-2023 End: 08-20-2023 ambulatory Nithya Ricks Facility:[facility] Start: 08-20-2023 End: 08-20-2023 Patient encounter procedure Nithya Ricks [facility] Start: 08-17-2023 End: 08-17-2023 ambulatory EVELYNE CARCAMO Facility:[facility] Start: 08-17-2023 End: 08-17-2023 Patient encounter procedure Evelyne Carcamo DP Work Phone: Orthopaedics Comment on above: 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); DJD (degenerative joint disease), ankle and foot, left; DJD (degenerative joint disease), ankle and foot, right; Pain in both feet 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) Start: 08-03-2023 End: 08-03-2023 ambulatory EVELYNE CARCAMO Facility:[facility] Start: 08-03-2023 End: 08-03-2023 Patient encounter procedure Cast Tech Zoe Work Phone: Orthopaedics Comment on above: 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) Start: 07-27-2023 Clinisync Result Encounter Mikal Nas DO Work Phone: [facility] Unsolicited Start: 07-27-2023 Clinisync Result Encounter Mikal Nas DO Work Phone: [facility] Unsolicited Start: 07-21-2023 End: 07-21-2023 ambulatory EVELYNE CARCAMO Facility:[facility] Start: 07-21-2023 End: 07-21-2023 Patient encounter procedure Cast Tech Zoe Work Phone: Orthopaedics Comment on above: 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) Start: 07-21-2023 End: 07-21-2023 ambulatory Clint Ortiz Facility:[facility] Start: 07-20-2023 Telephone encounter Evelyne Carcamo DPM Work Phone: Orthopaedics Comment on above: Patient Request Start: 07-13-2023 End: 07-13-2023 ambulatory EVELYNE CARCAMO Facility:[facility] Start: 07-13-2023 End: 07-13-2023 Subsequent hospital visit by physician Brian Hanley 1 Work Phone: Radiology Comment on above: Bilateral foot pain [M79.671, M79.672] Start: 06-25-2023 End: 06-25-2023 ambulatory Clint Ortiz Facility:[facility] Start: 06-25-2023 End: 06-25-2023 Patient encounter procedure Clint Ortiz [facility] Start: 06-25-2023 End: 06-25-2023 ambulatory Clint Ortiz Facility:[facility] Start: 06-25-2023 End: 06-25-2023 Patient encounter procedure Clint Ortiz [facility] Start: 06-07-2023 End: 06-07-2023 ambulatory Vinnie Romero Facility:[facility] Start: 06-07-2023 End: 06-07-2023 Patient encounter procedure Vinnie Romero [facility] Start: 04-21-2023 End: 04-21-2023 Patient encounter procedure Clint Ortiz [facility] Start: 04-20-2023 End: 04-20-2023 Patient encounter procedure Clint Ortiz [facility] Start: 02-18-2023 End: 02-18-2023 Patient encounter procedure Clint Ortiz [facility] Start: 02-18-2023 End: 02-18-2023 Well adult monitoring check done Clint Ortiz [facility] Start: 01-07-2023 End: 01-07-2023 Patient encounter procedure Clint Ortiz [facility] Start: 12-03-2022 End: 12-03-2022 Patient encounter procedure Clint Araceli Ortiz [facility] Start: 10-27-2022 End: 10-27-2022 Patient encounter procedure Clint Ortiz [facility] Start: 10-16-2022 End: 10-17-[address] MIKAL LOVELL . Facility: Start: 10-06-2022 End: 10-06-2022 Patient encounter procedure Clint Ortiz [facility] Start: 09-29-2022 End: 09-29-2022 [facility] Start: 09-15-2022 End: 09-16-2022 [...] FAWWAD Facility:[facility] Start: 04-11-2022 End: 04-12-2022 ambulatory REED H FAWWAD Facility:[facility] Start: 03-11-2022 End: 03-12-2022 ambulatory REED H FAWWAD Facility:[facility] Start: 02-10-2022 End: 02-11-2022 ambulatory REED H FAWWAD Facility:[facility] Start: 01-10-2022 End: 01-11-[address] MIKAL LOVELL . Facility:[facility] Start: 11-15-2021 End: 11-15-2021 ambulatory Melissa Weaver Other [facility] Other Start: 11-15-2021 Office outpatient vi sit 25 minutes Melissa Weaver [facility] Start: 11-14-2021 End: 11-15-2021 ambulatory REED H FAWWAD Facility:[facility] Start: 10-24-2021 End: 10-25-[address] MIKAL LOVELL . Facility:[facility] Start: 08-15-2021 End: 08-15-2021 ambulatory Petros Lion Other [facility] Other Start: 08-15-2021 Office outpatient ne w 30 minutes Petros Lion [facility] Procedures Date Procedure Procedure Detail Performing Clinician Start: 07-28-2024 Ecg routine ecg w/le ast 12 lds w/i&r Jayce Trevino MD Work Phone: Start: 07-19-2024 Cta hrt cornry art/b ypass grfts contrst 3d post Alonso Winn MD Work Phone: Start: 04-28-2024 Implantation of inse rtable loop recorder Alonso Winn Start: 12-25-2023 Radiologic examinati on tibia & fibula 2 views Evelyne Carcamo DPM Work Phone: Start: 07-27-2023 ALL PROGESTERONE Mikal Nas DO Work Phone: Start: 07-13-2023 Radex ankle complete minimum 3 views Evelyne Carcamo DPM Work Phone: Start: 08-26-2022 Microscopic observat ion [Identifier] in Cervix by Cyto stain Melissa 1 Start: 08-26-2022 Cytp cerv/vag auto t hin layer prep mnl screen Mikla Nas DO Work Phone: delivery only Christiano Ortiz Colonoscopy Clint Ortiz Dilation & curettage dx&/ther nonobstetric Clint Ortiz Operation on gallbladder Eriberto Ortzi Structure of carpal canal (body structure) Clint Ortiz Plan of Treatment Date Care Activity Detail Author Start: 2035 Zoster Vaccines (1 o f 2) Zoster Vaccines (1 of 2) [facility] Start: 08-26-2025 Screening for malign ant neoplasm of cervix [facility] Start: 10-25-2024 End: 07-28-2025 Cardiac Device Check - In Clinic Cardiac Device Check - In Clinic Implantable Cardiac Device Routine Implantable loop recorder present Expected: 10/25/2024, Expires: 07/28/2025 [facility] Service Area Work Phone: Comment on above: Expected: 10/25/2024 , Expires: 07/28/2025 Start: 08-29-2024 End: 08-29-2024 Patient encounter procedure 08/29/2024 3:00 PM EDT Office Visit [facility] [address] [facility] [place] [address] Mikal Lovell, DO [address] [place] [address] [facility] Start: 08-26-2024 End: 08-26-2024 Patient encounter procedure 08/26/2024 11:10 AM EDT Office Visit [facility] [address] [facility] [address] [place] [id number] Nithya Ricks MD [address] [facility] [address] [place] [address] [facility] Start: 07-28-2024 End: 07-28-2024 Patient encounter procedure 07/28/2024 3:00 PM EST Office Visit [facility] Medical Office [address] [address] Jayce Trevino MD [address] [place] [id number] [facility] Medical Office [facility] Start: 02-22-2024 End: 02-22-2024 Patient encounter procedure 02/22/2024 1:40 PM EDT Office Visit [facility] [address] [facility] [place] [id number] Mikal Lovell, DO [address] [place] [address] Arrived [facility] Comment on above: Arrived Start: 02-14-2024 Covid-19 Vaccine ( season) Covid-19 Vaccine ( season) [facility] Start: 02-14-2024 COVID-19 Vaccine ( season) COVID-19 Vaccine ( season) [facility] Start: 02-14-2024 Influenza vaccination Influenza Vacc ine (#1) [facility] Start: 08-28-2023 End: 08-28-2023 Patient encounter procedure 08/28/2023 11:10 AM EDT Office Visit [facility] [address] [facility] [address] [place] [address] Nithya Ricks MD [address] [facility] [address] [place] [address] [facility] Start: 06-15-2023 Behavioral Health Screening Behavioral Health Screening [facility] Start: 06-15-2023 Depression Assessment Depression Ass essment [facility] Start: 02-13-2023 Covid-19 Vaccine ( season) Covid-19 Vaccine ( season) [facility] Start: 2015 Screening for malign ant neoplasm of cervix HPV Testing [facility] Start: 2007 DTaP/Tdap/Td Vaccine s (1 - Tdap) DTaP/Tdap/Td Vaccines (1 - Tdap) [facility] Start: 2006 Screening for malign ant neoplasm of cervix [facility] Start: 2004 Hepatitis B Vaccine (1 of 3 - 19+ 3-dose series) Hepatitis B Vaccine (1 of 3 - 19+ 3-dose series) [facility] Start: 2004 Hepatitis B Vaccines (1 of 3 - 19+ 3-dose series) Hepatitis B Vaccines (1 of 3 - 19+ 3-dose series) [facility] Start: 2004 Pneumococcal Vaccine : Pediatrics and At-Risk Adult Patients (1 of 2 - PCV) Pneumococcal Vaccine: Pediatrics and At-Risk Adult Patients (1 of 2 - PCV) [facility] Start: 2004 Urine microalbumin profile DTaP,Tdap,Td Vaccine (1 - Tdap) [facility] Start: 2003 Anxiety Screening Anxiety Screening [facility] Start: 2003 Depression Screening Depression Scre ening [facility] Start: 2003 Hepatitis C screening Hepatitis C Sc reening [facility] Start: 2003 HIV screening HIV Screening [facility] Start: 1998 Varicella vaccination Varicell a Vaccines (1 of 2 - 13+ 2-dose series) [facility] Start: 1986 MMR Vaccines (1 of 1 - Standard series) MMR Vaccines (1 of 1 - Standard series) [facility] Start: 1985 Covid-19 Vaccine (#1) Covid-19 Vacci ne (#1) [facility] Start: 1985 Hepatitis B Vaccine (1 of 3 - 3-dose series) Hepatitis B Vaccine (1 of 3 - 3-dose series) [facility] Start: 1985 HIV screening HIV Screening [facility] Start: 1985 Lipid panel Lipid Panel [facility] Start: 1985 Thyroid stimulating hormone measurement TSH Level [facility] Start: 1985 Yearly Adult Physical Yearly Adult P hysical [facility] End: 07-28-2025 Cardiac Device Check - Remote Cardiac Device Check - Remote Implantable Cardiac Device Routine Implantable loop recorder present 52 Occurrences starting 07/28/2024 until 07/28/2025 [facility] Work Phone: Comment on above: 52 Occurrences start ing 07/28/2024 until 07/28/2025 [facility] Immunizations Immunization Date Immunization Notes Care Provider Earnestine park 06-23-2023 influenza, injectabl e, quadrivalent, preservative free [facility] 06-23-2023 influenza virus vacc ine, unspecified formulation Angelique MONTANO(R) [facility] 04-21-2023 influenza, injectabl e, quadrivalent, preservative free [facility] 05-05-2022 influenza virus vacc ine, unspecified formulation [facility] 05-21-2021 influenza virus vacc ine, unspecified formulation [facility] Payers Date Payer Category Payer Private Health Insurance [id number] 2024 Private Health Insurance 2024 [facility] Care (Private) [facility] [id number] 2024 Private Health Insurance [id number] 2022 Unknown [id number]. 1.13.159.2. 7.3.510340.315 2019 Medicare [id number]. 1.13.159.2. 7.3.701361.315 1985 Unknown [id number] 2.16.840.1.126989.3.579.2. 593 1985 Unknown [id number] 2.16.840.1.788310.3.579.2. 593 1985 Unknown [id number] 2.16.840.1.647041.3.579.2. 593 1985 Unknown [id number] 2.16.840.1.819712.3.579.2. 593 1985 Unknown [id number] 2.16.840.1.330613.3.579.2. 593 1985 Unknown [id number] 2.16.840.1.747416.3.579.2. 593 1985 Unknown [id number] 2.16.840.1.289825.3.579.2. 593 1985 Unknown [id number] 2.16.840.1.981227.3.579.2. 593 1985 Unknown [id number] 2.16.840.1.672545.3.579.2. 593 1985 Unknown [id number] 2.16.840.1.824594.3.579.2. 593 1985 Unknown [id number] 2.16.840.1.663971.3.579.2. 593 1985 Unknown [id number] 2.16.840.1.657562.3.579.2. 593 1985 Unknown [id number] 2.16.840.1.120126.3.579.2. 593 1985 Unknown [id number] 2.16.840.1.550182.3.579.2. 593 1985 Unknown [id number] 2.16.840.1.724041.3.579.2. 593 1985 Unknown [id number] 2.16.840.1.220053.3.579.2. 727 1985 Unknown [id number] 2.16.840.1.874170.3.579.2. 727 1985 Unknown [id number] 2.16.840.1.832107.3.579.2. 727 1985 Unknown [id number] 2.16.840.1.140036.3.579.2. 727 1985 Unknown [id number] 2.16.840.1.272153.3.579.2. 727 1985 Unknown [id number] 2.16.840.1.862774.3.579.2. 727 1985 Unknown [id number] 2.16.840.1.770913.3.579.2. 727 1985 Unknown [id number] 2.16.840.1.793229.3.579.2. 727 1985 Unknown [id number] 2.16.840.1.664886.3.579.2 72 1985 Unknown [id number] 2.16.840.1.683475.3.579.2 72 1985 Unknown [id number] 2.16.840.1.309838.3.579.2 72 1985 Unknown [id number] 2.16.840.1.496131.3.579.2 1985 Unknown [id number] 2.16.840.1.500401.3.579.2 1985 Unknown [id number] 2.16.840.1.838206.3.579.2 1985 Unknown [id number] 2.16.840.1.569013.3.579.2 1985 Unknown [id number] 2.16.840.1.689045.3.579.2 1985 Unknown [id number] 2.16.840.1.807798.3.579.2 1985 Unknown [id number] 2.16.840.1.500094.3.579.2 1985 Unknown [id number] 2.16.840.1.032932.3.579.2 1985 Unknown [id number] 2.16.840.1.875117.3.579.2 1985 Unknown [id number] 2.16.840.1.314059.3.579.2 1985 Unknown [id number] 2.16.840.1.446696.3.579.2 1985 Unknown [id number] 2.16.840.1.276758.3.579.2 1985 Unknown [id number] 2.16.840.1.421701.3.579.2 72 1985 Unknown [id number] 2.16.840.1.510049.3.579.2. 72 1985 Unknown [id number] 2.16.840.1.065429.3.579.2 72 1985 Unknown [id number] 2.16.840.1.682986.3.579.2 72 1985 Unknown [id number] 2.16.840.1.140499.3.579.2 72 1985 Unknown [id number] 2.16.840.1.092013.3.579.2 72 1985 Unknown [id number] 2.16840.1.394400.3.579.2 72 1985 Unknown [id number] 2.16.840.1.067030.3.579.2 72 1985 Unknown [id number] 2.840.1.884621.3.579.2 72 1985 Unknown [id number] 2.16.840.1.910563.3.579.2 72 1985 Unknown [id number] 2.16840.1.859785.3.579.2 72 1985 Unknown [id number] 2.16840.1.380095.3.579.2 72 1985 Unknown [id number] 2.840.1.712696.3.579.2 72 1985 Unknown [id number] 2.16.840.1.672456.3.579.2 72 1985 Unknown [id number] 2.16.840.1.667461.3.579.2. 1246 1985 Unknown [id number] 2.16.840.1.838750.3.579.2. 1244 1985 Unknown [id number] 2.16.840.1.077715.3.579.2 72 1985 Unknown [id number] 2.16.840.1.753269.3.579.2. 727 1985 Unknown [id number] 2.16.840.1.782736.3.579.2. 727 1985 Unknown [id number] 2.16.840.1.004349.3.579.2. 727 1985 Unknown [id number] 2.16.840.1.755883.3.579.2. 727 1985 Unknown [id number] 2.16.840.1.739053.3.579.2. 727 1985 Unknown [id number] 2.16.840.1.499948.3.579.2. 727 1985 Unknown [id number] 2.16.840.1.162080.3.579.2. 727 1985 Unknown [id number] 2.16.840.1.069307.3.579.2. 1259 1985 Unknown [id number] 2.16.840.1.106205.3.579.2. 1259 1959 Medicare [id number] 2.16.840.1.671380.19 1959 Unknown [id number] 2.16.840.1.381133.19 1959 Unknown [id number] Social History Date Type Detail Facility Start: 07-13-2023 End: 07-28-2024 Sex Assigned At [facility] Start: 09-29-2022 End: 01-07-2023 Tobacco smoking status Never [facility] Tobacco Current vaping o r e-cigarette use Smokeless Tobacco Use:. Vaping, 12 per day. Ready to change: No. [facility] Tobacco smoking status No Smokin g Status Entered [facility] Start: 06-07-2023 End: 06-23-2024 Tobacco smoking status Ex-smoker (finding) [facility] Tobacco smoking stat us GAIS Tobacco smoking consumption unknown [facility] Start: 07-13-2023 End: 07-28-2024 History of Social function [facility] Start: 1985 Sex Assigned At Not on file [facility] History of tobacco use Current smoker [facility] History of tobacco use Cigarette Smoker [facility] Start: 11-21-2022 End: 07-28-2024 Tobacco use and exposure User of smokeless tobacco [facility] Start: 04-15-2023 End: 07-28-2024 Alcohol intake Current drinker of alcohol (finding) [facility] Start: 11-21-2022 Tobacco Comment I now use a vape [facility] Start: 11-21-2022 Alcohol Comment Rare [facility] Start: 11-14-2022 Gender identity Identifies as female gender (finding) [facility] Start: 11-14-2022 Sexual orientation Heterosexual (finding) [facility] Start: 07-09-2024 End: 07-28-2024 Exposure to SARS-CoV-2 (event) Not sure [facility] Work Phone: Start: 07-28-2024 Tobacco smoking status NHIS Smokes tobacco daily [facility] Start: 07-28-2024 Alcohol Comment socially [facility] Work Phone: Medical Equipment Procedure Code Equipment Code Equipment Origin al Text Equipment Identifier Dates Loop recorder insertion Unknown 04/28/24 Unknown Chest FDA Start: 04-28-2024 Loop recorder insertion Unknown 04/28/24 Unknown Chest FDA Start: 04-28-2024 Loop recorder insertion Unknown 04/28/24 Unknown Chest FDA Start: 04-28-2024 Loop recorder insertion Unknown 04/28/24 Unknown Chest FDA Start: 04-28-2024 Loop recorder insertion Unknown 04/28/24 Unknown Chest FDA Start: 04-28-2024 Loop recorder insertion Unknown 04/28/24 Unknown Chest FDA Start: 04-28-2024 Loop recorder insertion Unknown 04/28/24 Unknown Chest FDA Start: 04-28-2024 Loop recorder insertion Unknown 04/28/24 Unknown Chest FDA Start: 04-28-2024 Loop recorder insertion Unknown 04/28/24 Unknown Chest FDA Start: 04-28-2024 Loop recorder insertion Unknown 04/28/24 Unknown Chest FDA Start: 04-28-2024 Loop recorder insertion Unknown 04/28/24 Unknown Chest FDA Start: 04-28-2024 Loop recorder insertion Unknown 04/28/24 Unknown Chest [facility] Start: 04-28-2024 Functional Status Date Assessment Result Facility 06-23-2024 Functional Status N/A [facility] 05-26-2024 Functional Status N/A [facility] 04-28-2024 Functional Status N/A [facility] 04-11-2024 Functional Status N/A [facility] 03-22-2024 Functional Status N/A [facility] 03-04-2024 Functional Status N/A [facility] 02-23-2024 Functional Status N/A [facility] 01-28-2024 Functional Status N/A [facility] 12-23-2023 Functional Status N/A [facility] 12-21-2023 Functional Status N/A [facility] 10-16-2023 Functional Status N/A [facility] 06-07-2023 Functional Status N/A [facility] 04-21-2023 Functional Status N/A [facility] 02-18-2023 Functional Status N/A [facility] 01-07-2023 Functional Status N/A [facility] 12-03-2022 Functional Status N/A [facility] 09-29-2022 Functional Status N/A [facility] Clinical Notes 04-27-2020 to 07-28-2024 Jayce Trevino MD - 07/28/2024 3:00 PM ESTPatient Tong Noriega RN - 07/19/2024 12:45 PM Duke Noriega RN - 07/19/2024 12:45 PM EST Note Date & Type Note Facility 07-28-2024 History of Present illness Narrative CARDIOLOGY OFFICE VISIT CHIEF COMPLAINT Chief Complaint Patient presents with New Patient Visit HISTORY OF PRESENT ILLNESS HPI 39-year-old female with a past medical history of asthma and palpitations. Patient apparently has been having episodes of palpitations for the last 24 years. Palpitations usually last 10 to 15 minutes except for 1 episode when she was in [place] that lasted a little longer. They were able to capture an EKG during tachycardia but this is not available during this evaluation. At some point she was placed on beta-stevie therapy but she did not tolerate this medication. Patient was recently evaluated by primary physician who recommended event monitor but due to allergy to tape, she underwent loop recorder implantation in April 2024 with no complications. Loop record interrogations apparently has not seen any significant atrial or ventricular arrhythmias but also she has not had any recent symptoms of palpitations. She is not on any medical therapy. EKG performed today shows sinus rhythm at a rate of 94 bpm QRS duration 74 ms QT corrected 487 ms. No evidence of preexcitation from baseline EKG. Echocardiogram April 2024 shows left ventricular ejection fraction of 60 to 65%. Stress test was equivocal. Past Medical History History reviewed. No pertinent past medical history. Social History Social History Tobacco Use Smoking status: Every Day Current packs/day: 0.50 Types: Cigarettes Smokeless tobacco: Current Substance Use Topics Alcohol use: Yes Comment: socially Drug use: Yes Types: Marijuana Comment: occasional Family History Family History Problem Relation Name Age of Onset Heart murmur Father Allergies: Allergies Allergen Reactions Geodon [Ziprasidone Hcl] Anaphylaxis Outpatient Medications: Current Outpatient Medications Medication Instructions letrozole (FEMARA) 2.5 mg, Daily levothyroxine (SYNTHROID, LEVOXYL) 100 mcg, Daily metFORMIN (GLUCOPHAGE) 500 mg, 2 times daily PNV no.95/ferrous fum/folic ac ( MULTIVITAMINS ORAL) 1 tablet, Daily REVIEW OF SYSTEMS Review of Systems All other systems reviewed and are negative. VITALS Vitals: 07/28/24 1513 BP: 110/80 Pulse: 94 PHYSICAL EXAM Constitutional: Appearance: Healthy appearance. Not in distress. Neck: Vascular: No JVR. JVD normal. Pulmonary: Effort: Pulmonary effort is normal. Breath sounds: Normal breath sounds. No wheezing. No rhonchi. No rales. Chest: Chest wall: Not tender to palpatation. Cardiovascular: PMI at left midclavicular line. Normal rate. Regular rhythm. Normal S1. Normal S2. Murmurs: There is no murmur. No gallop. No click. No rub. Comments: Device left pectoral area. No hematoma or infection noted. Loop recorder. Pulses: Intact distal pulses. Edema: Peripheral edema absent. Abdominal: General: Bowel sounds are normal. Palpations: Abdomen is soft. Tenderness: There is no abdominal tenderness. Musculoskeletal: Normal range of motion. General: No tenderness. Skin: General: Skin is warm and dry. Neurological: General: No focal deficit present. Mental Status: Alert and oriented to person, place and time. ASSESSMENT AND PLAN Clinical impression 1. Palpitations 2. SVT 3. Hypothyroidism 4. Asthma 5. Normal left ventricular function per echocardiogram as described above in 2023 Plan recommendations I had an extensive discussion with patient and family member regarding plan to for home management will palpitations and SVT. 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 We offer her electrophysiology study and ablation therapy versus continue with observation with loop recorder for documentation of arrhythmias. Procedure, risk, benefits and possible complications were explained to patient. All questions were answered. Patient states that she would like to think about procedures. Meantime continue with observation. Patient does not want to start beta-stevie therapy at this time. Follow device clinic as scheduled. Follow my office in 3 months or sooner needed Risk factor modification and lifestyle modification discussed with patient. Diet , exercise and hydration discussed with patient. I have personally review with patient during this office visit, laboratory data, echocardiogram results, stress test results, Holter-event monitor results prior and after the last electrophysiology visit. All questions has been answered. Please excuse any errors in grammar or translation related to this dictation. Voice recognition software was utilized to prepare this document. Scribe Attestation By signing my name below, I, Jaclyn Juárez LPN , Scrbertrand attest that this documentation has been prepared under the direction and in the presence of Jayce Trevino MD. documented in this encounter [facility] Work Phone: 07-28-2024 Instructions Jaclyn Juárez LPN - 07/28/2024 3:00 PM EST Follow up [address] Trevino is switching you from [facility] to our Device Clinic here in [place]. In-Clinic device clinic to be done 3 months then remotely thereafter. DID YOU KNOW We have a pharmacy here in the [facility]. They can fill all prescriptions, not just cardiac medications. Prescriptions from other pharmacies can easily be transferred to the pharmacy by the pharmacist on site. pharmacies offer FREE HOME DELIVERY on medications to anywhere in [place]. They can sync your medications. Typically prescriptions can be ready in 10 - 15 minutes. If pharmacy is unable to fill your prescription or if cost is more than your paying now the Pharmacist can easily transfer back to your Pharmacy of choice. Pharmacy phone # [phone]. Please bring all medicines, vitamins, and herbal supplements with you in original bottles to every appointment!!!! Prescriptions will not be filled unless you are compliant with your follow up appointments or have a follow up appointment scheduled as per instruction of your physician. Refills should be requested at the time of your visit. documented in this encounter [facility] Work Phone: 07-19-2024 Nurse Note Post CCTA pt denies feeling dizzy or lightheaded, denies headache. Steady on feet, skin warm pink and dry. Pt verbalized understanding of increased water intake x24 hours, educated on side effects of medications. HL removed with tip intact, manual pressure held until hemostasis achieved, 2x2 and coban to site. Pt DC home to self care [facility] Work Phone: 07-19-2024 Nurse Note Post CCTA pt denies feeling dizzy or lightheaded, denies headache. Steady on feet, skin warm pink and dry. Pt verbalized understanding of increased water intake x24 hours, educated on side effects of medications. HL removed with tip intact, manual pressure held until hemostasis achieved, 2x2 and coban to site. Pt DC home to self care documented in this encounter [facility] Work Phone: 05-01-2024 Note Echocardiology Procedure Exam Date/Time Accession # Ordering ECG Stress Exercise 04/27/2024 13:59 EST [id number] Alonso Winn MD CPT code 47189 Reason for Exam (ECG Stress Exercise) R07.9;Chest pain Report DATE OF PROCEDURE: 04/27/2024 SUPERVISING PHYSICIAN: Alonso Winn M.D. PROCEDURE: Treadmill exercise stress test. INDICATIONS: Chest pain. PROCEDURE DESCRIPTION: The patient exercised using a standard Dirk protocol for 4 minutes and 57 seconds achieving 90% of maximal age-predicted heart rate, 6.9 METS. Baseline blood pressure of 126/81 mmHg increased to 173/71 mmHg. The patient was complaining of shortness of breath and some chest tightness in the recovery period. The baseline EKG showed normal sinus rhythm at 84 beats per minute. The stress EKG showed artifactual tracing. There was no evidence of ST- or T-wave deviations consistent with ischemia. It was, however, difficult to interpret due to baseline artifact. CONCLUSIONS: 1. Uncomplicated exercise stress test which is equivocal. Suggest different diagnostic modality for ischemia assessment. 2. Low tolerance for physical exercise, adequate workload, adequate blood pressure response. FINAL REPORT Signed (Electronic Signature): 05/01/2024 5:18 pm Signed by: Alonso Winn MD Transcribed by: JOLENE Technologist: KEIKO [facility] 04-28-2024 Evaluation + Plan note Extrac mando from: Title:Procedure Note Heart & Vascular Author:Alonso Shine MD Date:04/28/24 Ordered: lidocaine, 100 mg, 10 mL, Injection, SubCutaneous, q5min PRN Other (see comment) for 3 dose(s), Stop date Limited # of times, Routine, Start date 04/27/24 9:39:00 EST ECG Stress Exercise Echo Transthoracic Complete Future Appointments Appointment Date:05/02/2024 11:00:00 AM Scheduled Provider:Jojo Torres Location[facility] Appointment Type:BH Therapy 60 Appointment Date:05/20/2024 11:00:00 AM Scheduled Provider:Jojo Torres Location:[facility] Appointment Type:BH Therapy 60 Appointment Date:05/23/2024 02:00:00 PM Scheduled Provider:CARLOS JARAMILLO Location:[facility] Jose C Appointment Type:[facility] Appointment Date:05/26/2024 02:45:00 PM Scheduled Provider:Alonso Winn [facility] Type:Cardiology Follow Up (FT) Appointment Date:06/03/2024 11:00:00 AM Scheduled Provider:Jojo Torres Location:[facility] Appointment Type:BH Therapy 60 Appointment Date:06/15/2024 11:00:00 AM Scheduled Provider:Jojo Torres Location:[facility] Appointment Type:BH Therapy 60 Appointment Date:06/29/2024 11:00:00 AM Scheduled Provider:Jojo Torres Location:[facility] Appointment Type:BH Therapy 60 Appointment Date:07/15/2024 11:00:00 AM Scheduled Provider:Jojo Torres [place] Appointment Type:BH Therapy 60 Appointment Date:07/28/2024 11:45:00 AM Scheduled Provider: [facility] Appointment Type:NCV Remote Follow Up (FT) Appointment Date:03/01/2025 11:00:00 AM Scheduled Provider: Location:[facility] Jose C Appointment Type:FM Medicare Wellness Subsequent [facility] 11-14-2024 Hospital Discharge instructions Patient Education 04/28/2024 07:53:58 Implantable Loop Recorder Placement, Care After Implantable Loop Recorder Placement, Care After The following information offers guidance on how to care for yourself after your procedure. Your health care provider may also give you more specific instructions. If you have problems or questions, contact your health care provider. What can I expect after the procedure? After the procedure, it is common to have: Soreness or discomfort near the incision. Some swelling or bruising near the incision. Follow these instructions at home: Incision care Follow instructions from your health care provider about how to take care of your incision. Make sure you: ?Wash your hands with soap and water for at least 20 seconds before and after you change your bandage (dressing). If soap and water are not available, use hand real estate intern. ?Change your dressing as told by your health care provider. ?Keep your dressing dry. ?Leave stitches (sutures), skin glue, or adhesive strips in place. These skin closures may need to stay in place for 2 weeks or longer. If adhesive strip edges start to loosen and curl up, you may trim the loose edges. Do not remove adhesive strips completely unless your health care provider tells you to do that. Check your incision area every day for signs of infection. Check for: ?Redness, more swelling, or more pain. ?Fluid or blood. ?Warmth. ?Pus or a bad smell. Do not take baths, swim, or use a hot tub until your health care provider approves. Ask your healthcare provider if you may take showers. You may only be allowed to take sponge baths. Activity Return to your normal activities as told by your health care provider. Ask your health care provider what activities are safe for you. If you were given a sedative during the procedure, it can affect you for several hours. Do not drive or operate machinery until your health care provider says that it is safe. General instructions Follow instructions from your health care provider about how to manage your implantable loop recorder and transmit the information. Learn how to activate a recording if this is necessary for your type of device. If the device transmission indicates an emergency at any time, you will be notified and asked to goto the emergency room. Do not go through a metal detection gate, and do not let someone hold a metal detector over your chest. Show your ID card. Do not have an MRI unless you check with your health care provider first. Take kwav-flv-jcxqoka and prescription medicines only as told by your health care provider. Keep all follow-up visits. This device provides information to your health care provider that mightchange your care plan. Contact a health care provider if: You have signs of infection. You have a fever. You have pain that is not relieved by pain medicine. You have activated your device because of fainting (syncope). You have activated your device because of a heartbeat that feels like it is slow, fluttering, fast,or irregular (palpitations). Get help right away if: You have chest pain. You have trouble breathing. These symptoms may be an emergency. Get help right away. Call 911. Do not wait to see if the symptoms will go away. Do not drive yourself to the hospital. This information is not intended to replace advice given to you by your health care provider. Make sure you discuss any questions you have with your health care provider. Document Revised: 10/27/2022 Document Reviewed: 10/27/2022 [employer] Patient Education 2023 [employer]. Follow Up Care 04/18/2024 15:18:30 With:Alonso Winn Address: [address] [place] [phone] Business (1) When:05/26/2024 14:45:00 Comments:Keep scheduled appointment [facility] 11-14-2024 NoteEchocardiology Procedure Exam Date/Time Accession # Ordering Dr. Muhammad Transthoracic 04/27/2024 13:43 EST [id number] Alonso Winn MD Complete CPT code 24789 [id number] Reason for Exam (Echo Transthoracic Complete) R07.9;Chest pain Report [address] [address] Adult Echocardiogram Report Name: DOMINIQUE LLAMAS Study Date: 04/27/2024 01:04 PM BP: 129/98 mmHg Patient Location: [facility] Ambulatory(s) [facility] [place] HR: 86 : 1985 Gender: Female Height: 60 in Age: 39 yrs Ethnicity: [facility] Weight: 202 lb Reason For Study: Chest pain BSA: 1.9 m2 History: Smoker-Yes,Obesity Ordering Physician: Tatum^Alonso^Vernon Referring Physician: Alonso Winn Performed By: Lily Araiza, AUSTEN, RVT Interpretation Summary Left ventricular systolic function is normal. Ejection Fraction = 60-65%. No significant valvular disease. Procedure A complete two-dimensional transthoracic echocardiogram was performed (2D, M- mode, spectral and color flow Doppler). Left Ventricle There is normal left ventricular wall thickness. The left ventricle is normal in size. Left ventricular systolic function is normal. Ejection Fraction = 60-65%. The left ventricular wall motion is normal. Normal diastolic function. Left Atrium The left atrial size is normal. There is no atrial septal defect. Right Atrium Echocardiology Report Right atrial size is normal. Right Ventricle The right ventricular systolic function is normal. The right ventricle is normal size. Aortic Valve The trileaflet aortic valve opening is normal. No aortic regurgitation. There is no aortic stenosis. Mitral Valve The mitral valve is normal in structure and function. Tricuspid Valve The tricuspid valve is grossly normal. There is trace tricuspid regurgitation. No evidence of tricuspid stenosis. Pulmonic Valve The pulmonic valve is normal. There is no pulmonic valve regurgitation. No evidence of stenosis. Arteries The aortic root is normal in size. Normal ascending aorta. Effusion There is no pericardial effusion. MMode/2D Measurements & Calculations RVDd: 2.4 cm LVIDd: 4.6 cm FS: 35.4 % Ao root diam: 2.5 cm IVSd: 0.86 cm LVIDs: 2.9 cm EDV(Teich): 95.4 ml Ao root area: 4.7 cm2 LVPWd: 0.87 cm ESV(Teich): 33.5 ml LA dimension: 3.2 cm EF(Teich): 64.9 % asc Aorta Diam: 2.7 cm LVOT diam: 2.1 cm LVLd ap4: 7.5 cm EDV(MOD-sp2): 84.4 ml LVOT area: 3.5 cm2 EDV(MOD-sp4): 66.4 ml ESV(MOD-sp2): 31.1 ml LVLs ap4: 6.7 cm EF(MOD-sp2): 63.2 % ESV(MOD-sp4): 26.2 ml EF(MOD-sp4): 60.5 % SV(MOD-sp4): 40.2 ml TAPSE: 2.2 cm Ao Sinus of Valsalva: 2.8 cm Ao Sinotubular Junction: 2.4 cm IVC Diam: 1.4 cm RV Base_phl: 3.0 cm RVIDd/LVIDd: 0.53 EF (MOD-bp): 61.5 % RV Length_phl: 7.0 cm RV Mid_phl: 2.9 cm LA Vol Index: 17.2 ml/m2 Doppler Measurements & Calculations MV E max stephani: 92.2 cm/sec MV dec time: 0.14 sec Ao V2 max: 89.3 cm/sec LV V1 max P.0 mmHg MV A max stephani: 43.7 cm/sec Ao max P.2 mmHg LV V1 mean P.0 mmHg Echocardiology Report MV E/A: 2.1 Ao V2 mean: 60.9 cm/sec LV V1 max: 70.8 cm/sec Lat Peak E' Stephani: 11.9 cm/sec Ao mean P.0 mmHg LV V1 mean: 46.1 cm/sec E/E' Lat: 7.8 Ao V2 VTI: 16.8 cm LV V1 VTI: 13.1 cm Med Peak E' Stephani: 7.7 cm/sec ABDIAS(I,D): 2.7 cm2 E/E' Med: 11.9 ABDIAS(V,D): 2.8 cm2 SV(LVOT): 45.6 ml TR max stephani: 205.1 cm/sec RAP systole: 3.0 mmHg AV VR: 0.79 TR max P.8 mmHg ABDIAS(VTI)/BSA_phl: 1.4 RVSP(TR): 19.8 mmHg FINAL REPORT Dictated: 04/27/2024 1:04 pm Alonso Winn MD Signed (Electronic Signature): 04/28/2024 9:40 am Signed by: Alonso Winn MD Transcribed by: MDK Technologist: [facility]11-14-2024 Note Operative Report Procedure Loop recorder implant procedure note Indication: Palpitations, nonrevealing noninvasive workup Procedure description: Informed consent was obtained. The patient was brought to the cardiac suite in fasting state. Anterior chest area was prepped and draped in a regular sterile fashion. Under local anesthesia with lidocaine 1% 10 cc intradermally and subcutaneously, then [employer]ena Assert-IQ3+ loop recorder serial #[id number] was implanted using a standard technique. Surgical glue was applied. No complications. Conclusion: Successful loop recorder implant Plan: Interrogations as per protocol. Assessment/Plan Ordered: lidocaine, 100 mg, 10 mL, Injection, SubCutaneous, q5min PRN Other (see comment) for 3 dose(s), Stop date Limited # of times, Routine, Start date 04/27/24 9:39:00 EST ECG Stress Exercise [facility]Result Comment: Electronically Signed By: Tatum JOSEPH, Alonso Macedo.br\Date and Time Signed: 04/28/24 09:07 [id number] NotePatient Education - Text Procedures Implantable Loop Recorder Placement, Care After The following information offers guidance on how to care for yourself after your procedure. Your health care provider may also give you more specific instructions. If you have problems or questions, contact your health care provider. What can I expect after the procedure? After the procedure, it is common to have: ??? Soreness or discomfort near the incision. ??? Some swelling or bruising near the incision. Follow these instructions at home: Incision care ??? Follow instructions from your health care provider about how to take care of your incision. Make sure you: ? Wash your hands with soap and water for at least 20 seconds before and after you change your bandage (dressing). If soap and water are not available, use hand real estate intern. ? Change your dressing as told by your health care provider. ? Keep your dressing dry. ? Leave stitches (sutures), skin glue, or adhesive strips in place. These skin closures may need tostay in place for 2 weeks or longer. If adhesive strip edges start to loosen and curl up, you may trim the loose edges. Do not remove adhesive strips completely unless your health care provider tellsyou to do that. ??? Check your incision area every day for signs of infection. Check for: ? Redness, more swelling, or more pain. ? Fluid or blood. ? Warmth. ? Pus or a bad smell. ??? Do not take baths, swim, or use a hot tub until your health care provider approves. Ask your health care provider if you may take showers. You may only be allowed to take sponge baths. Activity ??? Return to your normal activities as told by your health care provider. Ask your health care provider what activities are safe for you. ??? If you were given a sedative during the procedure, it can affect you for several hours. Do not drive or operate machinery until your health care provider says that it is safe. General instructions ??? Follow instructions from your health care provider about how to manage your implantable loop recorder and transmit the information. Learn how to activate a recording if this is necessary for yourtype of device. ??? If the device transmission indicates an emergency at any time, you will be notified and asked to go to the emergency room. ??? Do not go through a metal detection gate, and do not let someone hold a metal detector over your chest. Show your ID card. ??? Do not have an MRI unless you check with your health care provider first. ??? Take mztv-zjr-izbirny and prescription medicines only as told by your health care provider. ??? Keep all follow-up visits. This device provides information to your health care provider that might change your care plan. Contact a health care provider if: ??? You have signs of infection. ??? You have a fever. ??? You have pain that is not relieved by pain medicine. ??? You have activated your device because of fainting (syncope). ??? You have activated your device because of a heartbeat that feels like it is slow, fluttering, fast, or irregular (palpitations). Get help right away if: ??? You have chest pain. ??? You have trouble breathing. These symptoms may be an emergency. Get help right away. Call 911. ??? Do not wait to see if the symptoms will go away. ??? Do not drive yourself to the hospital. This information is not intended to replace advice given to you by your health care provider. Make sure you discuss any questions you have with your health care provider. Document Revised: 10/27/2022 Document Reviewed: 10/27/2022 [employer] Patient Education ? 2023 [employer].[facility] 02-24-2024 NotePatient Education Endocrinology Hypothyroidism Hypothyroidism is when the thyroid gland does not make enough of certain hormones. This is called an underactive thyroid. The thyroid gland is a small gland located in the lower front part of the neck, just in front of the windpipe (trachea). This gland makes hormones that help control how the bodyuses food for energy (metabolism) as well as how the heart and brain function. These hormones also play a role in keeping your bones strong. When the thyroid is underactive, it produces too little ofthe hormones thyroxine (T4) and triiodothyronine (T3). What are the causes? This condition may be caused by: ? Beth's disease. This is a disease in which the body's disease-fighting system (immune system) attacks the thyroid gland. This is the most common cause. ? Viral infections. ? . ? Certain medicines. ? defects. ? Problems with a gland in the center of the brain (pituitary gland). ? Lack of enough iodine in the diet. Other causes may include: ? Past radiation treatments to the head or neck for cancer. ? Past treatment with radioactive iodine. ? Past exposure to radiation in the environment. ? Past surgical removal of part or all of the thyroid. What increases the risk? You are more likely to develop this condition if: ? You are female. ? You have a family history of thyroid conditions. ? You use a medicine called lithium. ? You take medicines that affect the immune system (immunosuppressants). What are the signs or symptoms? Common symptoms of this condition include: ? Not being able to tolerate cold. ? Feeling as though you have no energy (lethargy). ? Lack of appetite. ? Constipation. ? Sadness or depression. ? Weight gain that is not explained by a change in diet or exercise habits. ? Menstrual irregularity. ? Dry skin, coarse hair, or brittle nails. Other symptoms may include: ? Muscle pain. ? Slowing of thought processes. ? Poor memory. How is this diagnosed? This condition may be diagnosed based on: ? Your symptoms, your medical history, and a physical exam. ? Blood tests. You may also have imaging tests, such as an ultrasound or MRI. How is this treated? This condition is treated with medicine that replaces the thyroid hormones that your body does not make. After you begin treatment, it may take several weeks for symptoms to go away. Follow these instructions at home: ? Take asjc-xzy-lkdhibj and prescription medicines only as told by your health care provider. ? If you start taking any new medicines, tell your health care provider. ? Keep all follow-up visits as told by your health care provider. This is important. ? As your condition improves, your dosage of thyroid hormone medicine may change. ? You will need to have blood tests regularly so that your health care provider can monitor your condition. Contact a health care provider if: ? Your symptoms do not get better with treatment. ? You are taking thyroid hormone replacement medicine and you: ? Sweat a lot. ? Have tremors. ? Feel anxious. ? Lose weight rapidly. ? Cannot tolerate heat. ? Have emotional swings. ? Have diarrhea. ? Feel weak. Get help right away if: ? You have chest pain. ? You have an irregular heartbeat. ? You have a rapid heartbeat. ? You have difficulty breathing. These symptoms may be an emergency. Get help right away. Call 911. ? Do not wait to see if the symptoms will go away. ? Do not drive yourself to the hospital. Summary ? Hypothyroidism is when the thyroid gland does not make enough of certain hormones (it is underactive). ? When the thyroid is underactive, it produces too little of the hormones thyroxine (T4) and triiodothyronine (T3). ? The most common cause is Beth's disease, a disease in which the body's disease-fighting system (immune system) attacks the thyroid gland. The condition can also be caused by viral infections, medicine, , or past radiation treatment to the head or neck. ? Symptoms may include weight gain, dry skin, constipation, feeling as though you do not have energy, and not being able to tolerate cold. ? This condition is treated with medicine to replace the thyroid hormones that your body does not make. This information is not intended to replace advice given to you by your health care provider. Make sure you discuss any questions you have with your health care provider. Document Revised: 06/03/2022 Document Reviewed: 06/03/2022 [employer] Patient Education ? 2023 [employer]. Gastroenterology Obesity, Adult Obesity is the condition of having too much total body fat. Being overweight or obese means that your weight is greater than what is considered healthy for your body size. Obesity is determined by a measurement called BMI (body mass index). BMI is an estimate of body fat and is calculated from height and weight. For adults, a BM (more content not included)...[facility]09-09-2024 History of Present illness Narrative* Maritza Sneed, WARP HANGER - 02/22/2024 1:40 PM EDT Reason for Appointment: Patient ID: Dominique Llamas is a 38 y.o. female who presents for Infertility Patient presents today for Consult appointment. 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 Thyroid nodule ([facility]) 11/10/2022 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 Resolved Ambulatory Problems Diagnosis Date Noted Absence of ovulation 11/10/2022 Dysmenorrhea 11/10/2022 Fibromyalgia 11/10/2022 Major depression, single episode ([facility]) 11/10/2022 Morbid obesity ([facility]) 11/10/2022 Prediabetes 11/10/2022 Vitamin D deficiency 11/10/2022 Past Medical History: Diagnosis Date ADHD (attention deficit hyperactivity disorder) ([facility]) Annual physical exam Anxiety Asthma ([facility]) Bilateral club feet Dental disease Disease of thyroid gland ([facility]) Migraine ([facility]) PCOS (polycystic ovarian syndrome) Screening for hyperlipidemia HISTORY PAST MEDICAL HISTORY SOCIAL HISTORY Past Medical History: Diagnosis Date ADHD (attention deficit hyperactivity disorder) ([facility]) Annual physical exam Anxiety Asthma ([facility]) Bilateral club feet Dental disease Disease of thyroid gland ([facility]) 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 Dysmenorrhea 11/10/2022 Fibromyalgia 11/10/2022 Major depression, single episode ([facility]) 11/10/2022 Migraine ([facility]) Morbid obesity ([facility]) 11/10/2022 with BMI of 40.0-44.9, adult PCOS (polycystic ovarian syndrome) Prediabetes 11/10/2022 Screening for hyperlipidemia Vitamin D deficiency 11/10/2022 Social History Tobacco Use Smoking status: Former Current packs/day: 1.00 Average packs/day: 1 pack/day for 15.0 years (15.0 ttl pk-yrs) Types: Cigarettes Smokeless tobacco: Current Tobacco comments: I now use a vape Substance Use Topics Alcohol use: Yes Comment: Rare Drug use: Yes Types: Marijuana Comment: Maybe once a month? I think even that is more than typical. FAMILY HISTORY Family History Problem Relation Name Age of Onset Hypertension Mother Shira Gavin Asthma Mother Shira Gavin Cancer Mother Shira Gavin Hypertension Father Julio Harris Hypertension Sister Crystal Gloria Depression Sister Crystal Gloria Asthma Sister Crystal Gloria Cancer Maternal Grandmother Leticia Byrne Diabetes Maternal Grandmother Leticia Byrne Hypertension Maternal Grandmother Leticia Byrne Cancer Paternal Grandmother Dasia Garcia Stroke Paternal Grandmother Dasia Garcia Thyroid disease Paternal Grandmother Dasia Garcia Cancer Father's Sister Ingrid Cifuentes Cancer Father's Brother Timbo Harris Multiple myeloma Neg Hx SURGICAL HISTORY Past Surgical History: Procedure Laterality Date CARPAL TUNNEL RELEASE SECTION, CLASSIC 2007 CHOLECYSTECTOMY COLONOSCOPY DILATION AND CURETTAGE 2016 FOOT SURGERY 1986 Club feet repair OTHER SURGICAL HISTORY 2005 MRSA infection OVARIAN CYST REMOVAL 2017 XR HYSTEROSALPINGOGRAM 08/10/2023 REVIEW OF SYSTEMS Review of Systems: Review of Systems All other systems reviewed and are negative. OBJECTIVE Objective: Physical Exam Constitutional: Appearance: Normal appearance. She is well-developed. Cardiovascular: Rate and Rhythm: Normal rate and regular rhythm. Pulmonary: Effort: Pulmonary effort is normal. Breath sounds: Normal breath sounds. Abdominal: General: Bowel sounds are normal. There is no distension. Palpations: Abdomen is soft. Tenderness: There is no abdominal tenderness. There is no guarding or rebound. Musculoskeletal: General: No swelling. Normal range of motion. Right lower leg: No edema. Left lower leg: No edema. Neurological: Mental Status: She is alert and oriented to person, place, and time. Skin: General: Skin is warm and dry. Psychiatric: Mood and Affect: Mood normal. Behavior: Behavior normal. Vitals and nursing note reviewed. Exam conducted with a photoengraving sketch maker present. Vitals: Estimated body mass index is 40.19 kg/m as calculated from the following: Height as of 24: 5'. Weight as of this encounter: 205 lb 12.8 oz. BP: 130/70 Patient's last menstrual period was 02/20/2024. ASSESSMENT & PLAN ICD-10-CM 1. Female infertility N97.9 Patient returned to office to discuss fertility plan. Patient has been on fertility medication for at least 8 months at this time she will be required to take a break from fertility at this time. Patient stated has voiced that she is possibly considering IVF in the future. Patient to return to clinic for annual appointment and as needed. Documented by Maritza Sneed LPN on behalf of: Mikal Lovell DO documented in this encounterMer[facility] St. John'[id number] Hospital Discharge instructions Follow Up Care 01/28/2024 16:48:20 With:Angel GIL, ROSETTA Hubbard, PED Address: [address] [place] [address] [phone] When:1 month Comments:20 min slotTo go instructions:stop lorazepamBegin clonazepam 0.5mg twice a day------*When you see providers outside of [facility], please request that they send office visit notes every time you'reseen there - this helps us take better care of youScreening guidelines:Colon cancer screening starts at age 45 for most people; cologuard every three years or colonoscopy every ten years (for averagerisk patients)Breast cancer screening; reasonable to consider screening between 40-49; every woman age 50-74 should undergo screening mammogram every 1-2 yearsDental exams and cleanings every 6 months is recommended - oral health is a predictor of your futureSmokers who have averaged a pack a day for over twenty years should have annual low dose Chest CT to screen for lung cancer starting at age 50Follow up 2 month [facility] [place] 07-12-2024 NoteHNO ID: [id number] Author: EVELYNE CARCAMO DPM Service: ? Author Type: Physician Type: Progress Notes Filed: 12/25/2023 14:04 Note Text: Patient Visit for Dominique Llamas 1985 38 year old female Date of Service: December 25, 2023 SUBJECTIVE: Chief Complaint: Patient presents with: Left Ankle - Established Patient, Follow Up, Pain Right Ankle - Established Patient, Follow Up, Pain Left Foot - Established Patient, Follow Up, Pain Right Foot - Established Patient, Follow Up, Pain /Pain Scales: Verbal (Numeric Rating or Visual Analog Scale) Pain Level: 7 Pain Location: (bilateral foot and ankle) Description: Sharp, Stabbing Duration Units: Years Frequency: Continuous Intervention/Comfort measure: Heat Comments: She is here for a follow up of pain in bilateral foot and ankle. Left is currently worse than the right. Pain increases with activity. Additional HPI: Here today for acute LEFT lateral lower leg pain , lateral ankle symptoms Began Thursday , denies any specific identifiable trauma to the area Went to ER on Thursday due to pain Ultra sound duplex imaging to evaluate for DVT negative History of bilateral club foot surgery x 2 - 1983, 86 Pain worse with activity throughout childhood Does have recurrent flare of symptoms LEFT hind foot worse than RIGHT Difficulty walking PCP: No primary care provider on file. No past medical history on file. Current Outpatient Medications Medication Sig PERCOCET 5-325 mg tablet Take 1 tablet by mouth every 6 hours as needed for pain. albuterol HFA (PROVENTIL HFA, VENTOLIN HFA) 90 [...] mg by mouth two times a day. No current facility-administered medications for this visit. [...] exam, palpable pluses with brisk capillary fill Calf soft nontender no sign of DVT Neurological exam: Normal neurological exam, gross epicritic sensation intact Dermatological exam: Well healed scars from previous surgery Other Normal exam without rashes or lesions of skin. No evidence of evidence of petechiae, purpura, telangiectasia Musculoskeletal exam: Tenderness to palpation peroneal tendon lateral LEFT ANKLE Tenderness to palpation peroneal tendon mid shaft LEFT leg No palpable mass Limited range of motion ankle bilateral Intact [...] , HBA1C , VITD25 in the last 32720 hours. X-ray deformity foot and ankle consistent with clubfoot Flat top talus, severe degenerative joint disease talo calcaneal joint , degenerative joint disease mid tarsal joint X-ray tibial fibula 12/25/2023 8:36 AM - Radiology, Oru In Impression IMPRESSION: No acute bony abnormality. 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 Treatment options discussed at length wear tall air CAM walker boot Recommend use with compression stockings Recommend contrast bath rehabilitation discussed. Patient to use two buckets of water: one with a tray of several ice cubes to chill the water and the other being slightly warmer than luke warm - not hot. To soak foot and ankle in ice water for 5 min followed by warm for 5 minutes and repeat for 20 min treatment as tolerated. Repeat two to three times daily if improvement noted. If not improved recommend follow up and further work up MRI discussed: Discussed with patient that if persistent symptoms or worsening despite conservative care we recommend that an MRI is medically necessary to further evaluate. All questions were answered. Dominique Llamas appeared to be w (more content not included)...[facility]07-12-2024 History of Present illness Narrative* Evelyne Carcamo DPM - 12/25/2023 8:50 AM EDT Patient Visit for Dominique Llamas 1985 38 year old female Date of Service: December 25, 2023 SUBJECTIVE: Chief Complaint: Patient presents with: Left Ankle - Established Patient, Follow Up, Pain Right Ankle - Established Patient, Follow Up, Pain Left Foot - Established Patient, Follow Up, Pain Right Foot - Established Patient, Follow Up, Pain /Pain Scales: Verbal (Numeric Rating or Visual Analog Scale) Pain Level: 7 Pain Location: (bilateral foot and ankle) Description: Sharp, Stabbing Duration Units: Years Frequency: Continuous Intervention/Comfort measure: Heat Comments: She is here for a follow up of pain in bilateral foot and ankle. Left is currently worse than the right. Pain increases with activity. Additional HPI: Here today for acute LEFT lateral lower leg pain , lateral ankle symptoms Began Thursday , denies any specific identifiable trauma to the area Went to ER on Thursday due to pain Ultra sound duplex imaging to evaluate for DVT negative History of bilateral club foot surgery x 2 - 1983, 86 Pain worse with activity throughout childhood Does have recurrent flare of symptoms LEFT hind foot worse than RIGHT Difficulty walking PCP: No primary care provider on file. No past medical history on file. Current Outpatient Medications Medication Sig PERCOCET 5-325 mg tablet Take 1 tablet by mouth every 6 hours as needed for pain. albuterol HFA (PROVENTIL HFA, VENTOLIN HFA) 90 mcg/actuation inhaler Inhale 1 Puff as instructed asneeded. busPIRone (BUSPAR) 10 mg tablet Take 1 tablet by mouth every 12 hours. DULoxetine (CYMBALTA) 30 mg capsule Take 1 capsule by mouth once daily. letrozole (FEMARA) 2.5 mg tablet Take 2 tablets by mouth once daily. levothyroxine (SYNTHROID) 75 mcg tablet Take 1 tablet by mouth every afternoon. metFORMIN (GLUCOPHAGE) 500 mg tablet Take 500 mg by mouth two times a day. No current facility-administered medications for this visit. [...] exam, palpable pluses with brisk capillary fill Calf soft nontender no sign of DVT Neurological exam: Normal neurological exam, gross epicritic sensation intact Dermatological exam: Well healed scars from previous surgery Other Normal exam without rashes or lesions of skin. No evidence of evidence of petechiae, purpura, telangiectasia Musculoskeletal exam: Tenderness to palpation peroneal tendon lateral LEFT ANKLE Tenderness to palpation peroneal tendon mid shaft LEFT leg No palpable mass Limited range of motion ankle bilateral Intact [...] , HBA1C , VITD25 in the last 06502 hours. X-ray deformity foot and ankle consistent with clubfoot Flat top talus, severe degenerative joint disease talo calcaneal joint , degenerative joint diseasemid tarsal joint X-ray tibial fibula 12/25/2023 8:36 AM - Radiology, Oru In Impression IMPRESSION: No acute bony abnormality. 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 Treatment options discussed at length wear tall air CAM walker boot Recommend use with compression stockings Recommend contrast bath rehabilitation discussed. Patient to use two buckets of water: one with a tray of several ice cubes to chill the water and the other being slightly warmer than luke warm - nothot. To soak foot and ankle in ice water for 5 min followed by warm for 5 minutes and repeat for 20min treatment as tolerated. Repeat two to three times daily if improvement noted. If not improved recommend follow up and further work up MRI discussed: Discussed with patient that if persistent symptoms or worsening despite conservativecare we recommend that an MRI is medically necessary to further evaluate. All questions were answered. Dominique Llamas appeared to be well informed. Greater than 50% of the visit was spent face to face counseling and/or coordinating care for the patient. Evelyne Carcamo DPM documented in [facility]East [facility] NoteHNO ID: [id number] Author: ANGELIQUE DU RT(Mainor) Service: ? Author Type: Technologist Type: Progress Notes Filed: 12/25/2023 08:23 Note Text: Radiology Service Progress Note PATIENT NAME: Dominique Llamas DATE OF SERVICE: December 25, 2023 TIME: 8:23 AM PATIENT IDENTITY VERIFICATION COMPLETED USING TWO (2) [...] PATIENT PRESENTS WITH AN IMPLANTABLE OR ATTACHED SUPERVISOR CRACK OFF: No RADIOLOGY DEPARTMENT: General X-ray: Exam(s) Completed: Lower Extremity X-Ray(s): Tibia Fibula, Left PERIPHERAL IV DATA: Not applicable SIGNED BY: RT Kimmy(Mainor) December 25, 2023 8:23 [facility]07-12-2024 History of Present illness Narrative* Angelique Du RT(R) - 12/25/2023 8:23 AM EDT Radiology Service Progress Note PATIENT NAME: Dominique Llamas DATE OF SERVICE: December 25, 2023 TIME: 8:23 AM PATIENT IDENTITY VERIFICATION COMPLETED USING TWO (2) IDENTIFIERS: Name and Date of confirmedby patient verbally. FALL SCREENING: Has the patient had 2 falls in the last year or 1 fall with injury or currently using an Ambulatory Assistive Device (Walker, Cane, Wheelchair, Crutches, etc.)? No PATIENT GENDER DATA: Female. status: : No status: NO. PATIENT RELEVANT IMPLANT DATA REVIEWED: Not Applicable PATIENT PRESENTS WITH AN IMPLANTABLE OR ATTACHED SUPERVISOR CRACK OFF: No RADIOLOGY DEPARTMENT: General X-ray: Exam(s) Completed: Lower Extremity X- Ray(s): Tibia Fibula, Left PERIPHERAL IV DATA: Not applicable SIGNED BY: RT Kimmy(R) December 25, 2023 8:23 AM documented in this encounterEast [facility] Hospital07-10-[facility]24 Hospital Discharge instructions Patient Education 12/23/2023 15:24:34 Heat Therapy, E[employer]-Ygqs Heat Therapy Heat therapy can help ease [...] is very important. If you cannot feel pain,heat, or cold, you have a greater risk [...] provider. Document Revised: 04/03/2021 Document Reviewed: 04/03/2021 [employer] Patient Education 2022 [employer] Follow Up Care 12/01/2023 09:47:29 With:Clint Ortiz DO, FAM, PED Address: [address] [place] [address] [address] [place] [address] [phone] When:1 month Comments:20 min slotTo go instructions:When you call Dr. Carcamo's office prior to your appt for imaging, I would also recommend an xray that includes the length of the left fibula*you have hyperalgesia at the distal end of the left lateral gastrocI would clarify with disability what you might need for your chrystal ssessmentIf we need a functional capacity evaluation for PT, let me know and I'll get that ordered*When you see providers outside of [facility], please request that they send office visit notes every time you're seen there - this helps us take better care of youFollow up 3 months [facility] Jose C 07-10-2024 NotePatient Education Physical Medicine and Rehabilitation Heat Therapy Heat therapy can help [...] heat or using heat for a long timecan cause ibrahim. ? Do not sleep while [...] provider. Document Revised: 04/03/2021 Document Reviewed: 04/03/2021 [employer] Patient Education ? 2022 [employer] 12-21-2023 Evaluation + Plan noteExtracted from: Title:ED Note Author:Ho Morales DO Date :12/21/23 Pain of left calf (M79.662: Pain in left lower leg) Orders: acetaminophen-oxycodone, 1 tab(s), Tab, Oral, Once, Stop date 12/21/23 3:14:00 EDT, STAT, Start date 12/21/23 3:14:00 EDT Future Appointments Appointment Date:12/23/2023 01:40:00 PM Scheduled Provider:Clint Ortiz DO Location:[facility] Appointment Type: Open Appointment Date:01/14/2024 03:20:00 PM Scheduled Provider:Clint Ortiz DO Location:[facility] Appointment Type: Open Appointment Date:02/23/2024 11:00:00 AM Scheduled Provider: Location:[facility] Appointment Type:FM Medicare Wellness [facility]07-08-2024 Hospital Discharge instructions Patient Education 12/21/2023 03:26:22 Vascular Ultrasound Vascular Ultrasound A vascular ultrasound is a painless test that is done to check for blood flow problems or blood clots in blood vessels. It uses harmless sound waves to take pictures of the arteries and veins in the body. The pictures are taken by passing a device (transducer) over certain areas of the body. Tell a health care provider about: Any allergies you have. All medicines you are taking, including vitamins, herbs, eye drops, creams, and enos-xmi-ysepdqp medicines. Any medical conditions you have. Any surgeries you have had. Whether you are or may be . What are the risks? Generally, this is a safe procedure. There are no known risks or complications that arise from having an ultrasound. What happens before the procedure? If the ultrasound scan involves your upper abdomen, you may be told not to eat before your exam. Follow your health care provider's instructions. You may be asked to change into a gown. What happens during the procedure? A gel will be applied to your skin. It may feel cool. The transducer will be placed on the area to be examined. Pictures will be taken. They will be displayed on one or more monitors that look like small television screens. You may feel pressure where the transducer is pressing on your skin. What can I expect after the procedure? The gel will be wiped off your skin. You may return to your normal diet and activities. You can safely drive home right after your exam. It is up to you to get your test results. Ask your health care provider, or the department that is doing the test, when your results will be ready. Keep all follow-up visits. This is important. Summary A vascular ultrasound is a painless test that is done to check for blood flow problems or blood clots in blood vessels. It uses harmless sound waves to take pictures of the arteries and veins in the body. Generally, this is a safe procedure. There are no known risks or complications that arise from having an ultrasound. A gel will be applied to your skin. It may feel cool. The device that takes the pictures (transducer) will then be placed on the area to be examined. After the test, you can return to your normal diet and activities. Ask your health care provider, or the department that is doing the test, when your results will be ready. This information is not intended to replace advice given to you by your health care provider. Make sure you discuss any questions you have with your health care provider. Document Revised: 02/12/2022 Document Reviewed: 10/15/2021 [employer] Patient Education 2022 [employer] Follow Up Care 12/21/2023 02:58:57 With:Clint Ortiz Address: [address] [place] [address] When:12/23/2023 [facility]07-08-2024 NoteED Patient Education Note Radiology Vascular Ultrasound A vascular ultrasound is a painless test that is done to check for blood flow problems or blood clots in blood vessels. It uses harmless sound waves to take pictures of the arteries and veins in the body. The pictures are taken by passing a device (transducer) over certain areas of the body. Tell a health care provider about: ? Any allergies you have. ? All medicines you are taking, including vitamins, herbs, eye drops, creams, and xgfs-ido-fwtawca medicines. ? Any medical conditions you have. ? Any surgeries you have had. ? Whether you are or may be . What are the risks? Generally, this is a safe procedure. There are no known risks or complications that arise from having an ultrasound. What happens before the procedure? ? If the ultrasound scan involves your upper abdomen, you may be told not to eat before your exam. Follow your health care provider's instructions. ? You may be asked to change into a gown. What happens during the procedure? ? A gel will be applied to your skin. It may feel cool. ? The transducer will be placed on the area to be examined. ? Pictures will be taken. They will be displayed on one or more monitors that look like small television screens. ? You may feel pressure where the transducer is pressing on your skin. What can I expect after the procedure? ? The gel will be wiped off your skin. ? You may return to your normal diet and activities. ? You can safely drive home right after your exam. ? It is up to you to get your test results. Ask your health care provider, or the department that is doing the test, when your results will be ready. ? Keep all follow-up visits. This is important. Summary ? A vascular ultrasound is a painless test that is done to check for blood flow problems or blood clots in blood vessels. It uses harmless sound waves to take pictures of the arteries and veins in the body. ? Generally, this is a safe procedure. There are no known risks or complications that arise from having an ultrasound. ? A gel will be applied to your skin. It may feel cool. The device that takes the pictures (transducer) will then be placed on the area to be examined. ? After the test, you can return to your normal diet and activities. ? Ask your health care provider, or the department that is doing the test, when your results will be ready. This information is not intended to replace advice given to you by your health care provider. Make sure you discuss any questions you have with your health care provider. Document Revised: 02/12/2022 Document Reviewed: 10/15/2021 [employer] Patient Education ? 2022 [employer] 10-16-2023 Hospital Discharge instructions Follow Up Care 10/16/2023 11:53:39 With:Angel GIL, ROSETTA Hubbard, PED Address: [address] [place] [address] [phone] When:1 month Comments:20 min slotTo go instructions:I have submitted a prescription for lorazepamI recommend that you take 1/2 tablet at bedtimehydroxyzine 25mg for itching - can take up to 4 times a dayprednisone if thatdoesn't work; 20mg daily for 7 days----*When you see providers outside of [facility], please request that they send office visit notes every time you're seen there - this helps us take better care of youScreening guidelines:Colon cancer screening starts at age 45 for most people; cologuard every three years or colonoscopy every ten years (for average risk patients)Breast cancer screening; reasonable to consider screening between 40-49; every woman age 50-74 should undergo screening mammogram every 1-2 yearsDental exams and cleanings every 6 months is recommended - oral health is a predictorof your futureSmokers who have averaged a pack a day for over twenty years should have annual low dose Chest CT to screen for lung cancer starting at age 50Follow up 1 month [facility] [place] 03-04-2024 NoteHNO ID: [id number] Author: ANTONIO MORENO Cast Tech Service: ? Author Type: Visualizer Type: Progress Notes Filed: 08/17/2023 15:32 Note Text: Patient in today for scheduled appointment. Cast removed. Left leg cleansed with Cavilon. Examined by Dr. Carcamo. Fitted patient with a Small Tall Foam Walker for the left leg. Instructions on application, adjustments and care given. Will f/u as scheduled/prn. Antonio Moreno [facility]03-04-2024 History of Present illness Narrative* Antonio Moreno Cast Tech - 08/17/2023 3:31 PM EST Patient in today for scheduled appointment. Cast removed. Left leg cleansed with Cavilon. Examined by Dr. Carcamo. Fitted patient with a Small Tall Foam Walker for the left leg. Instructions on application, adjustments and care given. Will f/u as scheduled/prn. SHAKIRA Mejía documented in this encounterEast [facility] City Hospital03-04-2024 NoteHNO ID: [id number] Author: EVELYNE CARCAMO DPM Service: ? Author Type: Physician Type: Progress Notes Filed: 08/17/2023 15:27 Note Text: Patient Visit for Dominique Dunbar Farhad 1985 38 year old female Date of [...] , HBA1C , VITD25 in the last 02992 hours. X-ray deformity foot and ankle consistent [...] counseling and/or coordinating care for the patient. [facility] History of Present illness Narrative* Evelyne Carcamo DPM - 08/17/2023 3:15 PM EST Patient Visit for Dominique Llamas 1985 38 [...] mcg/actuation inhaler Inhale 1 Puff as instructed asneeded. busPIRone (BUSPAR) 10 mg tablet Take 1 [...] , HBA1C , VITD25 in the last 69287 hours. X-ray deformity foot and ankle consistent with clubfoot Flat top talus, severe degenerative joint disease talo calcaneal joint , degenerative joint diseasemid tarsal joint ASSESSMENT: Q66.89 Club foot of [...] patient. Evelyne Carcamo DPM documented in this encounterEast [facility] City Hospital02-19-2024 NoteHNO ID: [id number] Author: ANTONIO MORENO Cast Tech Service: ? Author Type: Visualizer Type: Progress Notes Filed: 08/03/2023 15:47 Note Text: Ms. Llamas has been informed that the supervising physician today is DOMINICK Baker. I am carrying out the treatment plan of Dr. Carcamo. Patient in today for scheduled appointment. Cast removed. Left leg cleansed with Cavilon. Applied A Short Leg Weightbearing Cast to the left leg. Instructions on cast care given. Will f/u as scheduled/prn. Antonio Moreno [facility]02-19-2024 History of Present illness Narrative* Antonio Moreno Cast Tech - 08/03/2023 3:45 PM EST Ms. Llamas has been informed that the supervising physician today is DOMINICK Baker. I am carrying out the treatment plan of Dr. Carcamo. Patient in today for scheduled appointment. Cast removed. Left leg cleansed with Cavilon. Applied A Short Leg Weightbearing Cast to the left leg. Instructions on cast care given. Will f/u as scheduled/prn. Antonio Moreno CT documented in this encounterEast Liverpool City Hospital02-06-2024 NoteHNO ID: [id number] Author: ANTONIO MORENO Cast Tech Service: ? Author Type: Visualizer Type: Progress Notes Filed: 07/21/2023 15:41 Note Text: Ms. Llamas has been informed that the supervising physician today is Dr. Lynch. I am carrying out the treatment plan of Dr. Carcamo. Patient came in today c/o of Cast being loose. Cast was removed and skin inspected. Skin appeared normal. Cast was reapplied. Patient instructed follow-up with doctor during next scheduled appointment/prn. Antonio Moreno [facility]02-06-2024 History of Present illness Narrative* Antonio Moreno Cast Tech - 07/21/2023 3:40 PM EST Ms. lLamas has been informed that the supervising physician today is Dr. Lynch. I am carrying out the treatment plan of Dr. Carcamo. Patient came in today c/o of Cast being loose. Cast was removed and skin inspected. Skin appeared normal. Cast was reapplied. Patient instructed follow- up with doctor during next scheduled appointment/prn. SHAKIRA Mejía documented in this encounterEast [facility] City Hospital02-06-2024 Hospital Discharge instructions Follow Up Care 07/21/2023 08:57:47 With:Clint Ortiz DO, FAM, PED Address: [address] [place] [address] [phone] When:3 months Comments:20 min slotIncrease buspirone to 15mg twice a day; and if there's room for improvement after a week, I have changed the prescription to three times a day so that you have another tablet per day availableF/u 3 month [facility] [place] 02-05-2024 Miscellaneous Notes* Telephone Encounter - Shahram Lee OCCA - 07/20/2023 11:19 AM EST Called patient and offered a same day appointment. Patient requested to come in tomorrow due to another appointment. Patient was scheduled accordingly. Informed patient she can call the scheduling line at anytime and request a cast room appointment and they should be able to assist. Patient does not need an appointment with the doctor. * Telephone Encounter - Cheyenne Campbell - 07/20/2023 10:08 AM EST Dominique is calling Evelyne Carcamo DPM today stating that her cast was starting to be loose on Thursdayand her ankle started to hurt. She want to know if she can come in before her scheduled cast appointment on 08/03/23 to have cast changed. Please advise. Patient has been identified by name and birthdate. Duration of symptoms: 2 days Person calling: self Call patient at: on cell [phone] (home) Was an appointment scheduled: No Closing statement: Symptom Call: Thank you for calling [facility], your call is very important. A nurse will call in approximately 2-4 hours during business hours. If this is an emergency, please contact 911. Cheyenne Mccarty [facility] NoteHNO ID: [id number] Author: ANTONIO MORENO Cast Tech Service: ? Author Type: Visualizer Type: Progress Notes Filed: 07/13/2023 15:22 Note Text: Applied A Short Leg Weightbearing Cast to the left leg. Instructions on cast care given. A medium Cast Shoe was dispensed. Will f/u as scheduled/prn. Antonio Moreno [facility]01-29-2024 NoteHNO ID: [id number] Author: EVELYNE CARCAMO DPM Service: ? Author Type: Physician Type: Progress Notes Filed: 07/13/2023 15:50 Note Text: Patient Visit for Dominique Manjinder Farhad 1985 38 year old female SUBJECTIVE: Chief [...] , HBA1C , VITD25 in the last [id number] hours. X-ray deformity foot and ankle consistent [...] up I discussed wit (more content not included)...[facility] 07-13-2023 NoteHNO ID: [id number] Author: MAVIS REEDER RT(Mainor) Service: ? Author [...] PATIENT PRESENTS WITH AN IMPLANTABLE OR ATTACHED SUPERVISOR CRACK OFF: No RADIOLOGY DEPARTMENT: General X-ray: Exam(s) Completed: Lower Extremity X-Ray(s): Ankle, Bilateral and Foot, Bilateral PERIPHERAL IV DATA: Not applicable SIGNED BY: RT Karmen(R) July 13, 2023 2:14 [facility]01-11-2024 Hospital Discharge instructions Patient Education 06/25/2023 15:58:28 Heat Therapy, Jeic-pq-Chsx Heat Therapy Heat therapy can help ease [...] is very important. If you cannot feel pain,heat, or cold, you have a greater risk [...] provider. Document Revised: 04/03/2021 Document Reviewed: 04/03/2021 [employer] Patient Education 2022 [employer]. Follow Up Care 06/22/2023 09:04:37 With:Angel GIL, ROSETTA Hubbard PED Address: [address] [place] [address] [address] [place] [address] [id number] When:1 month Comments:1-2 month f/u - 20 min slot [facility] [place] 09-06-2023 Hospital Discharge instructions Patient Education 02/18/2023 10:46:36 Exercising to Lose Weight Exercising to Lose Weight Getting regular exercise is important for everyone. It is especially important if you are overweight. Being overweight increases your risk of heart disease, stroke, diabetes, high blood pressure, andseveral types of cancer. Exercising, and reducing the [...] of moderate-intensity exercise a week to maintain theirbody weight. Vigorous-intensity exercise Vigorous-intensity exercise is any [...] you need and what types of activities aresafe for you. Nutrition Make changes to your diet as told by your health care provider or diet and clinical nutritionist (dietitian). This may include: ?Eating fewer calories. ?Eating more protein. ?Eating less unhealthy fats. ?Eating a diet that includes fresh fruits and vegetables, whole grains, low-fat dairy products, andlean protein. ?Avoiding foods with added fat, salt, [...] provider. Document Revised: 07/28/2021 Document Reviewed: 07/28/2021 [employer] Patient Education 2022 [employer]. 02/18/2023 10:46:33 BMI for Adults BMI for Adults What is BMI? Body mass index (BMI) is a number that is calculated from a person's weight and height. BMI can help estimate how much of a person's weight is composed of fat. BMI does not measure body fat directly.Rather, it is an alternative to procedures that [...] your height. Both height and weight are measured,and the BMI is calculated from those numbers. This can be done either in [place] ([place] or metric measurements. Note that charts and online BMI calculators are available to help you find your BMI quickly and easily without having to do these calculations yourself. To calculate your BMI in [place] ([place] measurements: 1.Measure your weight in pounds [...] inches squared measurement is 70 inches x 70inches, which equals 4,900 inches squared. 4.Divide the [...] muscular build, such as an athlete, may havea BMI that is higher than 24.9. In cases like these, BMI is not an accurate measure of body fat. To determine if excess body fat is the cause of a BMI of 25 or higher, further assessments may needto be done by a health care provider. BMI is usually interpreted in the same way for men and women. Where to find more information For more information about BMI, including tools to quickly calculate your BMI, go to these websites: Centers for Disease Control and Prevention: www.cdc.gov [place] Heart Association: www.heart.org National Heart, Lung, and Blood [place]: www.nhlbi.nih.gov Summary Body mass index (BMI) is a number that is calculated from a person's weight and height. BMI may help estimate how much of a person's weight is composed of fat. BMI can help identify thosewho may be at higher risk for certain medical problems. BMI can be measured using [place]e measurements or metric measurements. BMI charts are used to identify whether you are underweight, normal weight, overweight, or obese. This information is not intended to replace advice given to you by your health care provider. Make sure you discuss any questions you have with your health care provider. Document Revised: 02/22/2020 Document Reviewed: 12/30/2019 [employer] Patient Education 2022 [employer]. 02/18/2023 10:19:14 Steps to Quit Smoking, Nsqm-jh-Ywnp Steps to Quit Smoking Smoking tobacco is [...] a counselor. You are more likely to succeedwhen you do both. If you are or [...] a prescription, and some you can buy oaor-vwc-embcscd. Some medicines may contain a drug called [...] you. Call a phone quitline, such as 3-594-XBPO-NOW, reach out to support groups, or work [...] provider. Document Revised: 05/23/2022 Document Reviewed: 05/23/2022 [employer] Patient Education 2022 [employer]. 02/18/2023 10:19:12 Steps to Quit Smoking Steps [...] health care provider if you have any questionsor concerns. How do I get ready to [...] require a prescription. You can also purchase wegg-vdf-gsjtnoj medicines. Medicines may have nicotine in them [...] and encouragement. Call telephone quitlines, such as 4-228-FTCC-NOW, reach out to support groups, or work [...] provider. Document Revised: 05/23/2022 Document Reviewed: 05/23/2022 [employer] Patient Education 2022 [employer]. 02/18/2023 10:19:04 Major Depressive Disorder, Adult Major [...] and with everyday activities, such as work, school,and activities that are usually pleasant. MDD may be mild, moderate, or severe. It may be single-episode MDD, which happens once, or recurrent MDD, which may occur multiple times. What are the causes? The exact cause of this condition is not known. MDD is most likely caused by a combination of things, which may include: Your personality traits. Dieterich or conditioned behaviors or thoughts or feelings [...] medicines help to balance the brain chemicals thataffect your emotions. Lifestyle changes. You may be [...] your health care provider. General instructions Take mbik-pga-jzumnsw and prescription medicines only as told by your health care provider. Eat a healthy diet and get plenty of sleep. Consider joining a support group. Your health care provider may be able to recommend one. Keep all follow-up visits as told by your health care provider. This is important. Where to find more information National [place] on Mental Illness: www.leobardo.org [place] National [place] of Mental Health: www.nimh.nih.gov Contact a health care provider if: Your symptoms get worse. You develop new symptoms. Get help right away if: You self-harm. You have serious thoughts about hurting yourself or others. You hallucinate. If you ever feel like you may hurt yourself or others, or have thoughts about taking your own life,get help right away. Go to your nearest emergency department or: Call your local emergency services (707 in the [place] Call a suicide crisis helpline, such as the National Suicide Prevention Lifeline at or 080 in the [place] This is open 24 hours a day in the [place] Text the Crisis Text Line at 924165 (in the [place] Summary Major depressive disorder [...] You may need more than one type oftreatment. Get help right away if you have serious thoughts about hurting yourself or others. This information is not intended to replace advice given to you by your health care provider. Make sure you discuss any questions you have with your health care provider. Document Revised: 12/25/2021 Document Reviewed: 05/12/2020 [employer] Patient Education 2022 [employer]. 02/18/2023 10:19:00 Health Risks of Smoking Health [...] is absorbed quickly into your bloodstream through yourlungs. Both inhaled and non-inhaled nicotine may be [...] your mind, and long-time habits can be hardto change. Your health care provider can recommend: [...] Department of Health and Human Services: www.smokefree.gov [place] Lung Association: www.freedomfromsmoking.org [place] Heart Association: www.heart.org Where to find more [...] provider. Document Revised: 06/03/2022 Document Reviewed: 06/03/2022 [employer] Patient Education 2022 [employer]. [facility] [place] 04-17-2023 Evaluation + Plan note Future Scheduled Tests Laboratory* HgbA1c 09/29/22 * TSH With T4fr Reflex 09/29/22 * Comprehensive Metabolic Panel 09/29/22 * Lipid Panel 09/29/22 [facility]06-03-2022 Evaluation note* Encounter Date Diagnosis Assessment Notes Treatment Notes Treatment Clinical Notes Nov, Cough (ICD-10 - R05.9) Nov, [...] treatment plan. Patient left in stable condition [facility] 03-03-2022 Evaluation note* Encounter Date Diagnosis [...] of both lower extremities (ICD-10 - Q66.89) [facility] 11-13-2020 Evaluation + Plan note Future Appointments Appointment Date:04/27/2024 01:00:00 PM Scheduled [facility]: [facility] Type:CV Echo () Appointment Date:04/27/2024 02:00:00 PM Scheduled Provider: [facility] Appointment Type:CV Stress () Appointment Date:04/28/2024 09:00:00 AM Scheduled Provider: [facility] Appointment Type:CV Loop Recorder Implanted () Appointment Date:05/02/2024 11:00:00 AM Scheduled Provider:Jojo Torres Location[facility] Appointment Type:BH Therapy 60 Appointment Date:05/20/2024 11:00:00 AM Scheduled Provider:Jojo Torres Location:[facility] Appointment Type:BH Therapy 60 Appointment Date:05/23/2024 02:00:00 PM Scheduled Provider:CARLOS JARAMILLO Location:[facility] Jose C Appointment Type: Open Appointment Date:06/03/2024 11:00:00 AM Scheduled Provider:Jojo Torres Location:[facility] Appointment Type:BH Therapy 60 Appointment Date:06/15/2024 11:00:00 AM Scheduled Provider:Jojo Torres Location:[facility] Appointment Type:BH Therapy 60 Appointment Date:06/29/2024 11:00:00 AM Scheduled Provider:Jojo Torres Location:[facility] Appointment Type:BH Therapy 60 Appointment Date:07/15/2024 11:00:00 AM Scheduled Provider:Jojo Torres Location:[facility] Appointment Type:BH Therapy 60 Appointment Date:03/01/2025 11:00:00 AM Scheduled Provider: Location:[facility] Jose C Appointment Type: Medicare Wellness Subsequent Future Scheduled Tests Radiology* Echo Transthoracic Complete 04/27/24 * ECG Stress Exercise 04/27/24 [facility] evaluation + Plan note Future Appointments Appointment Date:10/06/2022 09:30:00 AM Scheduled Provider: Location:[facility] Appointment Type:PUL Pulmonary Function Test (FT) Future Scheduled Tests Laboratory* HgbA1c 09/29/22 * TSH With T4fr Reflex 09/29/22 * Comprehensive Metabolic Panel 09/29/22 * Lipid Panel 09/29/22 [facility] Evaluation + Plan note Future Appointments Appointment Date:12/03/2022 10:40:00 AM Scheduled Provider:Clint Ortiz DO Location:[facility] Appointment Type: Open Future Scheduled Tests Laboratory* HgbA1c 09/29/22 * TSH With T4fr Reflex 09/29/22 * Comprehensive Metabolic Panel 09/29/22 * [facility] Appointment Date:01/07/2023 10:20:00 AM Scheduled Provider:Clint Ortiz DO Location:[facility] Appointment Type: Open [facility] Evaluation + Plan note Future Appointments Appointment Date:02/18/2023 09:30:00 AM Scheduled Provider: Location:[facility] Appointment Type: Medicare Wellness Initial Appointment Date:02/18/2023 11:00:00 AM Scheduled Provider:Clint Ortiz DO Location:[facility] Appointment Type: Open Future Scheduled Tests Laboratory* T3 Total 02/05/23 * Basic Metabolic Panel 01/07/23 * Magnesium Level 01/07/23 * Thyroid Stimulating Hormone 02/05/23 * Free T4 02/05/23 [facility] [place] Evaluation + Plan note Future Appointments Appointment Date:04/21/2023 08:00:00 AM Scheduled Provider:Clint Ortiz DO Location:[facility] Appointment Type: Open Appointment Date:02/23/2024 11:00:00 AM Scheduled Provider: Location:[facility] Appointment Type: Medicare Wellness Subsequent Future Scheduled Tests Laboratory* T3 Total 02/05/23 * Basic Metabolic Panel 01/07/23 * Magnesium Level 01/07/23 * Thyroid Stimulating Hormone 02/05/23 * Free T4 02/05/23 [facility] Evaluation + Plan note Future Appointments Appointment Date:04/21/2023 08:00:00 AM Scheduled Provider:Clint Ortiz DO Location:[facility] Appointment Type: Open Appointment Date:02/23/2024 11:00:00 AM Scheduled Provider: Location:[facility] Appointment Type: Medicare Wellness Subsequent Diagnostic Tests Pending * T3 [facility]ments Appointment Date:07/21/2023 08:00:00 AM Scheduled Provider:Clint Ortiz DO Location:[facility] Appointment Type: Open Appointment Date:02/23/2024 11:00:00 AM Scheduled Provider: Location:[facility] Appointment Type:FM Medicare Wellness Subsequent Future Scheduled Tests Laboratory* TSH With T4fr Reflex 05/19/23 [facility] Evaluation + Plan note Future Appointments Appointment Date:07/21/2023 08:00:00 AM Scheduled Provider:Clitn Ortiz DO Location:[facility] Appointment Type: Open Appointment Date:02/23/2024 11:00:00 AM Scheduled Provider: Location:[facility] Appointment Type: Medicare Wellness Subsequent [facility] Evaluation + Plan note Future Appointments Appointment Date:10/16/2023 10:40:00 AM Scheduled Provider:Clint Ortiz DO Location:[facility] Appointment Type: Open Appointment Date:02/23/2024 11:00:00 AM Scheduled Provider: Location:[facility] Appointment Type: Medicare Wellness Subsequent Future Scheduled Tests Laboratory* TSH With T4fr Reflex [facility] Appointment Date:10/16/2023 10:40:00 AM Scheduled Provider:Clint Ortiz DO Location:[facility] Appointment Type: Open Appointment Date:02/23/2024 11:00:00 AM Scheduled Provider: Location:[facility] Appointment Type:FM Medicare Wellness [facility] Appointment Date:01/14/2024 03:20:00 PM Scheduled Provider:Clint Ortiz DO Location:[facility] Appointment Type:FM Open Appointment Date:02/23/2024 11:00:00 AM Scheduled Provider: Location:[facility] Appointment Type:FM Medicare Wellness Subsequent [facility] Evaluation + Plan note Future Appointments Appointment Date:12/23/2023 01:40:00 PM Scheduled Provider:Clint Ortiz DO Location:[facility] Appointment Type:FM Open Appointment Date:01/14/2024 03:20:00 PM Scheduled Provider:Clint Ortiz DO Location:[facility] Appointment Type:FM Open Appointment Date:02/23/2024 11:00:00 AM Scheduled Provider: Location:[facility] Appointment Type:FM Medicare Wellness [facility]ments Appointment Date:01/28/2024 03:00:00 PM Scheduled Provider:Clint Ortiz DO Location:[facility] Appointment Type:FM Open Appointment Date:02/03/2024 11:00:00 AM Scheduled Provider:Jojo Torres Location:[facility] Appointment Type:BH Therapy 60 Appointment Date:02/23/2024 11:00:00 AM Scheduled Provider: Location:[facility] Appointment Type:FM Medicare Wellness Subsequent [facility] evaluation + Plan note Future Appointments Appointment Date:02/03/2024 11:00:00 AM Scheduled Provider:Jojo Torres Location:[facility] Appointment Type:BH Therapy 60 Appointment Date:02/23/2024 11:00:00 AM Scheduled Provider: Location:[facility] Appointment Type:FM Medicare Wellness Subsequent Appointment Date:03/04/2024 11:40:00 AM Scheduled Provider:Clint Ortiz DO Location:[facility] Appointment Type:FM Open [facility] Evaluation + Plan note Future Appointments Appointment Date:02/23/2024 11:00:00 AM Scheduled Provider: Location:[facility] Appointment Type:FM Medicare Wellness Subsequent Appointment Date:02/26/2024 02:00:00 PM Scheduled Provider:Jojo Torres Location:[facility] Appointment Type:BH Therapy 60 Appointment Date:03/04/2024 11:40:00 AM Scheduled Provider:Clint Ortiz DO Location:[facility] Appointment Type:FM Open [facility] evaluation + Plan note Future Appointments Appointment Date:02/26/2024 02:00:00 PM Scheduled Provider:Jojo Torres Location:[facility] Appointment Type:BH Therapy 60 Appointment Date:03/04/2024 11:40:00 AM Scheduled Provider:Clint Ortiz DO Location:[facility] Appointment Type:FM Open Appointment Date:03/01/2025 11:00:00 AM Scheduled Provider: Location:[facility] Appointment Type:FM Medicare Wellness Subsequent [facility] [place] Evaluation + Plan note Future Appointments Appointment Date:03/11/2024 11:00:00 AM Scheduled Provider:Jojo Torres Location:[facility] Appointment Type:BH Therapy 60 Appointment Date:03/25/2024 11:00:00 AM Scheduled Provider:Jojo Torres Location:[facility] Appointment Type:BH Therapy 60 Appointment Date:04/08/2024 11:00:00 AM Scheduled Provider:Jojo Torres Location:[facility] Appointment Type:BH Therapy 60 Appointment Date:04/22/2024 11:00:00 AM Scheduled Provider:Jojo Torres Location:[facility] Appointment Type:BH Therapy 60 Appointment Date:05/02/2024 11:00:00 AM Scheduled Provider:Jojo Torres Location:[facility] Appointment Type:BH Therapy 60 Appointment Date:05/20/2024 11:00:00 AM Scheduled Provider:Jojo Torres Location:[facility] Appointment Type:BH Therapy 60 Appointment Date:06/02/2024 01:00:00 PM Scheduled Provider:Clint Ortiz DO Location:[facility] Appointment Type:FM Open Appointment Date:06/03/2024 11:00:00 AM Scheduled Provider:Jojo Torres Location:[facility] Appointment Type:BH Therapy 60 Appointment Date:06/15/2024 11:00:00 AM Scheduled Provider:Jojo Torres Location:[facility] Appointment Type:BH Therapy 60 Appointment Date:06/29/2024 11:00:00 AM Scheduled Provider:Jojo Torres Location:[facility] Appointment Type:BH Therapy 60 Appointment Date:07/15/2024 11:00:00 AM Scheduled Provider:Jojo Torres Location:[facility] Appointment Type:BH Therapy 60 Appointment Date:03/01/2025 11:00:00 AM Scheduled Provider: Location:[facility] Appointment Type:FM Medicare Wellness [facility] [place] Evaluation + Plan note Future Appointments Appointment Date:03/22/2024 02:40:00 PM Scheduled Provider:CARLOS JARAMILLO Location:[facility] Appointment Type:FM New Patient - Adult Appointment Date:03/25/2024 11:00:00 AM Scheduled Provider:Jojo Torres Location:[facility] Appointment Type:BH Therapy 60 Appointment Date:04/08/2024 11:00:00 AM Scheduled Provider:Jojo Torres Location:[facility] Appointment Type:BH Therapy 60 Appointment Date:04/22/2024 11:00:00 AM Scheduled Provider:Jojo Torres Location:[facility] Appointment Type:BH Therapy 60 Appointment Date:05/02/2024 11:00:00 AM Scheduled Provider:Jojo Torres Location:[facility] Appointment Type:BH Therapy 60 Appointment Date:05/20/2024 11:00:00 AM Scheduled Provider:Jojo Torres Location:[facility] Appointment Type:BH Therapy 60 Appointment Date:06/02/2024 01:00:00 PM Scheduled Provider:Clint Ortiz DO Location:[facility] Jose C Appointment Type:FM Open Appointment Date:06/03/2024 11:00:00 AM Scheduled Provider:Jojo Torres Location:[facility] Appointment Type:BH Therapy 60 Appointment Date:06/15/2024 11:00:00 AM Scheduled Provider:Jojo Torres Location:[facility] Appointment Type:BH Therapy 60 Appointment Date:06/29/2024 11:00:00 AM Scheduled Provider:Jojo Torres Location:[facility] Appointment Type:BH Therapy 60 Appointment Date:07/15/2024 11:00:00 AM Scheduled Provider:Jojo Torres Location:[facility] Appointment Type:BH Therapy 60 Appointment Date:03/01/2025 11:00:00 AM Scheduled Provider: Location:[facility] Jose C Appointment Type:FM Medicare Wellness [facility] evaluation + Plan note Future Appointments Appointment Date:03/25/2024 11:00:00 AM Scheduled Provider:Jojo Torres Location:[facility] Appointment Type:BH Therapy 60 Appointment Date:04/08/2024 11:00:00 AM Scheduled Provider:Jojo Torres Location:[facility] Appointment Type:BH Therapy 60 Appointment Date:04/22/2024 11:00:00 AM Scheduled Provider:Jojo Torres Location:[facility] Appointment Type:BH Therapy 60 Appointment Date:05/02/2024 11:00:00 AM Scheduled Provider:Jojo Torres [facility] [facility] Appointment Type:BH Therapy 60 Appointment Date:05/20/2024 11:00:00 AM Scheduled Provider:Jojo Torres Location:[facility] Appointment Type:BH Therapy 60 Appointment Date:05/23/2024 02:00:00 PM Scheduled Provider:CARLOS JARAMILLO Location:[facility] Jose C Appointment Type:FM Open Appointment Date:06/03/2024 11:00:00 AM Scheduled Provider:Jojo Torres Location:[facility] Appointment Type:BH Therapy 60 Appointment Date:06/15/2024 11:00:00 AM Scheduled Provider:Jojo Torres Location:[facility] Appointment Type:BH Therapy 60 Appointment Date:06/29/2024 11:00:00 AM Scheduled Provider:Jojo Torres Location:[facility] Appointment Type:BH Therapy 60 Appointment Date:07/15/2024 11:00:00 AM Scheduled Provider:Jojo Torres Location:[facility] Appointment Type:BH Therapy 60 Appointment Date:03/01/2025 11:00:00 AM Scheduled Provider: Location:[facility] Appointment Type:FM Medicare Wellness Subsequent [facility] [place] Evaluation + Plan note Future Appointments Appointment Date:04/08/2024 11:00:00 AM Scheduled Provider:Jojo Torres Location:[facility] Appointment Type:BH Therapy 60 Appointment Date:04/22/2024 11:00:00 AM Scheduled Provider:Jojo Torres Location:[facility] Appointment Type:BH Therapy 60 Appointment Date:05/02/2024 11:00:00 AM Scheduled Provider:Jojo Torres Location:[facility] Appointment Type:BH Therapy 60 Appointment Date:05/20/2024 11:00:00 AM Scheduled Provider:Jojo Torres Location:[facility] Appointment Type:BH Therapy 60 Appointment Date:05/23/2024 02:00:00 PM Scheduled Provider:CARLOS JARAMILLO Location:[facility] Jose C Appointment Type:FM Open Appointment Date:06/03/2024 11:00:00 AM Scheduled Provider:Jojo Torres Location:[facility] Appointment Type:BH Therapy 60 Appointment Date:06/15/2024 11:00:00 AM Scheduled Provider:Jojo Torres Location:[facility] Appointment Type:BH Therapy 60 Appointment Date:06/29/2024 11:00:00 AM Scheduled Provider:Jojo Torres Location:[facility] Appointment Type:BH Therapy 60 Appointment Date:07/15/2024 11:00:00 AM Scheduled Provider:Jojo Torres Location:[facility] Appointment Type:BH Therapy 60 Appointment Date:03/01/2025 11:00:00 AM Scheduled Provider: Location:[facility] Jose C Appointment Type:FM Medicare Wellness Subsequent [facility] evaluation + Plan note Future Appointments Appointment Date:04/11/2024 01:15:00 PM Scheduled Provider:Alonso Winn MD [facility] Type:Cardiology New Patient (FT) Appointment Date:04/22/2024 11:00:00 AM Scheduled Provider:Jojo Torres Location:[facility] Appointment Type:BH Therapy 60 Appointment Date:05/02/2024 11:00:00 AM Scheduled Provider:Jojo Torres Location:[facility] Appointment Type:BH Therapy 60 Appointment Date:05/20/2024 11:00:00 AM Scheduled Provider:Jojo Torres Location:[facility] Appointment Type:BH Therapy 60 Appointment Date:05/23/2024 02:00:00 PM Scheduled Provider:CARLOS JARAMILLO Location:[facility] Jose C Appointment Type:FM Open Appointment Date:06/03/2024 11:00:00 AM Scheduled Provider:Jojo Torres Location:[facility] Appointment Type:BH Therapy 60 Appointment Date:06/15/2024 11:00:00 AM Scheduled Provider:Jojo Torres Location:[facility] Appointment Type:BH Therapy 60 Appointment Date:06/29/2024 11:00:00 AM Scheduled Provider:Jojo Torres Location:[facility] Appointment Type:BH Therapy 60 Appointment Date:07/15/2024 11:00:00 AM Scheduled Provider:Jojo Torres Location:[facility] Appointment Type:BH Therapy 60 Appointment Date:03/01/2025 11:00:00 AM Scheduled Provider: Location:[facility] Appointment Type:FM Medicare Wellness Subsequent [facility] evaluation + Plan note Future Appointments Appointment Date:04/22/2024 11:00:00 AM Scheduled Provider:Jojo Torres Location:[facility] Appointment Type:BH Therapy 60 Appointment Date:05/02/2024 11:00:00 AM Scheduled Provider:Jojo Torres Location:[facility] Appointment Type:BH Therapy 60 Appointment Date:05/20/2024 11:00:00 AM Scheduled Provider:Jojo Torres Location:[facility] Appointment Type:BH Therapy 60 Appointment Date:05/23/2024 02:00:00 PM Scheduled Provider:CARLOS JARAMILLO Location:[facility] Jose C Appointment Type:FM Open Appointment Date:06/03/2024 11:00:00 AM Scheduled Provider:Jojo Torres Location:[facility] Appointment Type:BH Therapy 60 Appointment Date:06/15/2024 11:00:00 AM Scheduled Provider:Jojo Torres Location:[facility] Appointment Type:BH Therapy 60 Appointment Date:06/29/2024 11:00:00 AM Scheduled Provider:Jojo Torres Location:[facility] Appointment Type:BH Therapy 60 Appointment Date:07/15/2024 11:00:00 AM Scheduled Provider:Jojo Torres Location:[facility] Appointment Type:BH Therapy 60 Appointment Date:03/01/2025 11:00:00 AM Scheduled Provider: Location:[facility] Jose C Appointment Type:FM Medicare Wellness Subsequent Future Scheduled Tests Radiology* Echo Transthoracic Complete 04/11/24 * ECG Stress Exercise 04/11/24 [facility] Evaluation + Plan note Future Appointments Appointment Date:04/28/2024 09:00:00 AM Scheduled Provider: Location:[facility] Appointment Type:CV Loop Recorder Implanted (FT) Appointment Date:05/02/2024 11:00:00 AM Scheduled Provider:Jojo Torres Location:[facility] Appointment Type:BH Therapy 60 Appointment Date:05/20/2024 11:00:00 AM Scheduled Provider:Jojo Torres Location:[facility] Appointment Type:BH Therapy 60 Appointment Date:05/23/2024 02:00:00 PM Scheduled Provider:CARLOS JARAMILLO Location:[facility] Jose C Appointment Type:FM Open Appointment Date:06/03/2024 11:00:00 AM Scheduled Provider:Jojo Torres Location:[facility] Appointment Type:BH Therapy 60 Appointment Date:06/15/2024 11:00:00 AM Scheduled Provider:Jojo Torres Location:[facility] Appointment Type:BH Therapy 60 Appointment Date:06/29/2024 11:00:00 AM Scheduled Provider:Jojo Trores Location:[facility] Appointment Type:BH Therapy 60 Appointment Date:07/15/2024 11:00:00 AM Scheduled Provider:Jojo Torres Location:[facility] Appointment Type:BH Therapy 60 Appointment Date:03/01/2025 11:00:00 AM Scheduled Provider: Location:[facility] Jose C Appointment Type:FM Medicare Wellness Subsequent [facility] Evaluation + Plan note Future Appointments Appointment Date:05/20/2024 11:00:00 AM Scheduled Provider:Jojo Torres Location:[facility] Appointment Type:BH Therapy 60 Appointment Date:05/23/2024 02:00:00 PM Scheduled Provider:CARLOS JARAMILLO Location:[facility] Jose C Appointment Type:FM Open Appointment Date:05/26/2024 02:45:00 PM Scheduled Provider:Alonso Winn MD [facility] Type:Cardiology Follow Up (FT) Appointment Date:06/03/2024 11:00:00 AM Scheduled Provider:Jojo Torres Location:[facility] Appointment Type:BH Therapy 60 Appointment Date:06/15/2024 11:00:00 AM Scheduled Provider:Jojo Torres Location:[facility] Appointment Type:BH Therapy 60 Appointment Date:06/29/2024 11:00:00 AM Scheduled Provider:Jojo Torres Location:[facility] Appointment Type:BH Therapy 60 Appointment Date:07/15/2024 11:00:00 AM Scheduled Provider:Jojo Torres Location:[facility] Appointment Type:BH Therapy 60 Appointment Date:07/28/2024 11:45:00 AM Scheduled Provider: [facility] Type:NCV Remote Follow Up (FT) Appointment Date:03/01/2025 11:00:00 AM Scheduled Provider: Location:[facility] Jose C Appointment Type:FM Medicare Wellness Subsequent [facility] evaluation + Plan note Future Appointments Appointment Date:03/04/2024 11:40:00 AM Scheduled Provider:Clint Ortiz DO Location:[facility] Jose C Appointment Type:FM Open Appointment Date:03/11/2024 11:00:00 AM Scheduled Provider:Jojo Torres Location:[facility] Appointment Type:BH Therapy 60 Appointment Date:03/25/2024 11:00:00 AM Scheduled Provider:Jojo Torres Location:[facility] Appointment Type:BH Therapy 60 Appointment Date:04/08/2024 11:00:00 AM Scheduled Provider:Jojo Torres Location:[facility] Appointment Type:BH Therapy 60 Appointment Date:04/22/2024 11:00:00 AM Scheduled Provider:Jojo Torres Location:[facility] Appointment Type:BH Therapy 60 Appointment Date:05/02/2024 11:00:00 AM Scheduled Provider:Jojo Torres Location:[facility] Appointment Type:BH Therapy 60 Appointment Date:05/20/2024 11:00:00 AM Scheduled Provider:Jojo Torres Location:[facility] Appointment Type:BH Therapy 60 Appointment Date:06/03/2024 11:00:00 AM Scheduled Provider:Jojo Torres Location:[facility] Appointment Type:BH Therapy 60 Appointment Date:06/15/2024 11:00:00 AM Scheduled Provider:Jojo Torres Location:[facility] Appointment Type:BH Therapy 60 Appointment Date:06/29/2024 11:00:00 AM Scheduled Provider:Jojo Torres Location:[facility] Appointment Type:BH Therapy 60 Appointment Date:07/15/2024 11:00:00 AM Scheduled Provider:Jojo Torres Location:[facility] Appointment Type:BH Therapy 60 Appointment Date:03/01/2025 11:00:00 AM Scheduled Provider: Location:[facility] Appointment Type:FM Medicare Wellness Subsequent [facility] evaluation + Plan note Future Appointments Appointment Date:06/03/2024 11:00:00 AM Scheduled Provider:Jojo Torres Location:[facility] Appointment Type:BH Therapy 60 Appointment Date:06/23/2024 08:40:00 AM Scheduled Provider:CARLOS JARAMILLO Location:[facility] Jose C Appointment Type:FM Open Appointment Date:06/29/2024 11:00:00 AM Scheduled Provider:Jojo Torres Location:[facility] Appointment Type:BH Therapy 60 Appointment Date:07/15/2024 11:00:00 AM Scheduled Provider:Jojo Torres Location:[facility] Appointment Type:BH Therapy 60 Appointment Date:07/28/2024 11:45:00 AM Scheduled Provider: [facility] Type:NCV Remote Follow Up (FT) Appointment Date:03/01/2025 11:00:00 AM Scheduled Provider: Location:[facility] Appointment Type:FM Medicare Wellness Subsequent Future Scheduled Tests Laboratory* Creatinine 05/23/24 [facility] Evaluation + Plan note Future Appointments Appointment Date:06/03/2024 11:00:00 AM Scheduled Provider:Jojo Torres Location:[facility] Appointment Type:BH Therapy 60 Appointment Date:06/23/2024 08:40:00 AM Scheduled Provider:CARLOS JARAMILLO Location:[facility] Jose C Appointment Type:FM Open Appointment Date:06/29/2024 11:00:00 AM Scheduled Provider:Jojo Torres Location:[facility] Appointment Type:BH Therapy 60 Appointment Date:07/15/2024 11:00:00 AM Scheduled Provider:Jojo Torres Location:[facility] Appointment Type:BH Therapy 60 Appointment Date:07/28/2024 11:45:00 AM Scheduled Provider: [facility] Type:NCV Remote Follow Up (FT) Appointment Date:03/01/2025 11:00:00 AM Scheduled Provider: Location:[facility] Appointment Type: Medicare Wellness Subsequent [facility] Evaluation + Plan note Future Appointments Appointment Date:05/23/2024 02:00:00 PM Scheduled Provider:CARLOS JARAMILLO Location:[facility] Appointment Type:FM Open Appointment Date:05/26/2024 02:45:00 PM Scheduled Provider:Alonso Winn MD [facility] Appointment Type:Cardiology Follow Up (FT) Appointment Date:06/03/2024 11:00:00 AM Scheduled Provider:Jojo Torres Location:[facility] Appointment Type:BH Therapy 60 Appointment Date:06/29/2024 11:00:00 AM Scheduled Provider:Jojo Torres Location:[facility] Appointment Type:BH Therapy 60 Appointment Date:07/15/2024 11:00:00 AM Scheduled Provider:Jojo Torres Location:[facility] Appointment Type:BH Therapy 60 Appointment Date:07/28/2024 11:45:00 AM Scheduled Provider: [facility] Type:NCV Remote Follow Up (FT) Appointment Date:03/01/2025 11:00:00 AM Scheduled Provider: Location:[facility] Appointment Type:FM Medicare Wellness Subsequent [facility] evaluation + Plan note Future Appointments Appointment Date:06/23/2024 08:40:00 AM Scheduled Provider:CARLOS JARAMILLO Location:[facility] Appointment Type:FM Open Appointment Date:06/29/2024 11:00:00 AM Scheduled Provider:Jojo Torres Location:[facility] Appointment Type:BH Therapy 60 Appointment Date:07/15/2024 11:00:00 AM Scheduled Provider:Jojo Torres Location:[facility] Appointment Type:BH Therapy 60 Appointment Date:07/28/2024 11:45:00 AM Scheduled Provider: [facility] Type:NCV Remote Follow Up (FT) Appointment Date:03/01/2025 11:00:00 AM Scheduled Provider: Location:[facility] Appointment Type: Medicare Wellness Subsequent [facility] evaluation + Plan note Future Appointments Appointment Date:06/29/2024 11:00:00 AM Scheduled Provider:Jojo Torres Location:[facility] Appointment Type:BH Therapy 60 Appointment Date:07/15/2024 11:00:00 AM Scheduled Provider:Jojo Torres Location:[facility] Appointment Type:BH Therapy 60 Appointment Date:07/28/2024 11:45:00 AM Scheduled Provider: [facility] Appointment Type:NCV Remote Follow Up (FT) Appointment Date:08/22/2024 10:00:00 AM Scheduled Provider:CARLOS JARAMILLO Location:[facility] Appointment Type:FM Open Appointment Date:03/01/2025 11:00:00 AM Scheduled Provider: Location:[facility] Appointment Type: Medicare Wellness Subsequent [facility] [place] Evaluation + Plan note Future Appointments Appointment Date:07/15/2024 11:00:00 AM Scheduled Provider:Jojo Torres Location:[facility] Appointment Type:BH Therapy 60 Appointment Date:07/28/2024 11:45:00 AM Scheduled Provider: [facility] Appointment Type:NCV Remote Follow Up (FT) Appointment Date:08/22/2024 10:00:00 AM Scheduled Provider:CARLOS JARAMILLO Location:[facility] Appointment Type:FM Open Appointment Date:03/01/2025 11:00:00 AM Scheduled Provider: Location:[facility] Appointment Type:FM Medicare Wellness [facility] evaluation + Plan note Future Appointments Appointment Date:07/28/2024 11:45:00 AM Scheduled Provider: [facility] Appointment Type:NCV Remote Follow Up (FT) Appointment Date:08/05/2024 11:00:00 AM Scheduled Provider:Jojo Torres Location:[facility] Appointment Type:BH Therapy 60 Appointment Date:08/22/2024 10:00:00 AM Scheduled Provider:CARLOS JARAMILLO Location:[facility] Appointment Type:FM Open Appointment Date:03/01/2025 11:00:00 AM Scheduled Provider: Location:[facility] Appointment Type:FM Medicare Wellness [facility] evaluation + Plan note Future Appointments Appointment Date:08/05/2024 11:00:00 AM Scheduled Provider:Jojo Torres Location:[facility] Appointment Type:BH Therapy 60 Appointment Date:08/22/2024 10:00:00 AM Scheduled Provider:CARLOS JARAMILLO Location:[facility] Appointment Type:FM Open Appointment Date:10/27/2024 09:45:00 AM Scheduled Provider: [facility] Type:NCV Remote Follow Up (FT) Appointment Date:03/01/2025 11:00:00 AM Scheduled Provider: Location:[facility] Appointment Type:FM Medicare Wellness Subsequent [facility] Evaluation + Plan note Future Appointments Appointment Date:08/22/2024 10:00:00 AM Scheduled Provider:CARLOS JARAMILLO Location:[facility] Appointment Type:FM Open Appointment Date:10/27/2024 09:45:00 AM Scheduled Provider: [facility] Type:NCV Remote Follow Up (FT) Appointment Date:03/01/2025 11:00:00 AM Scheduled Provider: Location:[facility] Appointment Type:FM Medicare Wellness Subsequent [facility] evaluation + Plan note Future Appointments Appointment Date:08/19/2024 12:30:00 PM Scheduled Provider: Location[facility] Appointment Type:US Thyroid/Neck/Chest (FT) Appointment Date:08/22/2024 10:00:00 AM Scheduled Provider:CARLOS JARAMILLO Location:[facility] Appointment Type:FM Open Appointment Date:08/24/2024 10:00:00 AM Scheduled Provider:Jojo Torres Location:[facility] Appointment Type:BH Therapy 60 Appointment Date:10/27/2024 09:45:00 AM Scheduled Provider: Location[facility] Appointment Type:NCV Remote Follow Up (FT) Appointment Date:03/01/2025 11:00:00 AM Scheduled Provider: Location:[facility] MICHAEL Woodall Appointment Type:FM Medicare Wellness Subsequent Future Scheduled Tests Radiology* US Thyroid 08/19/24 [facility] evaluation note* Diagnosis Club foot of both lower extremities- [facility] Club foot of both lower extremities- Primary [facility] Diagnosis Club foot of both lower extremities- Primary DJD (degenerative joint disease), ankle and foot, left DJD (degenerative joint disease), ankle and foot, right Pain in both feet Pain in limb [facility] Diagnosis Club foot of both lower extremities- Primary [facility] Diagnosis Peroneal tendinitis of left lower extremity- Primary Other enthesopathy of ankle and tarsus 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 joint disease), ankle and foot, left DJD (degenerative joint disease), ankle and foot, right Pain in both feet Pain in limb [facility] Diagnosis Left leg pain Pain in limb [facility] Diagnosis Bilateral foot pain Pain in limb Bilateral ankle pain, unspecified chronicity [facility] Diagnosis Female infertility Female infertility of unspecified origin [facility] Diagnosis Palpitations Chest pain, unspecified Abnormal result of other cardiovascular function study documented in this encounter [facility] Work Phone: Evaluation note* Diagnosis Abnormal EKG- Primary Nonspecific abnormal electrocardiogram (ECG) (EKG) Palpitations SVT (supraventricular tachycardia) (CMS-HCC) Other specified cardiac dysrhythmias BMI 39.0-39.9,adult Current smoker Implantable loop recorder present documented in this encounter [facility] Work Phone: History general Narrative - Reported* Type Description Date Medical History chronic depression Medical History PCOS Medical History fibromyalgia Surgical History corrected clubbed feet Surgical History wisdom teeth Surgical History MRSA removal right thigh Surgical History Surgical History DNC x2 Surgical History Cystectomy left ovay Surgical History gall bladder Surgical History right carpal tunnel Surgical History GI scope with 2 biopsy [facility] Other Hospital course Narrative No data available for this section [facility] Hospital Discharge instructions No data available for this section [facility] Progress note No data available for this section [facility] Reason for referral (narrative) Referred by: Clint Ortiz DO [facility] Reason for referral (narrative)* Diagnostic Procedure Only (Routine) - Closed Specialty Diagnoses / Procedures Referred By Vince matthew Referred To Contact XR IMAGING Diagnoses Left leg pain Procedures XR TIBIA FIBULA 2V AP/LAT LEFT RADIOLOGIC EXAMINATION TIBIA & FIBULA 2 VIEWS Evelyne Carcamo DPM [address] [place] [address] [place] [address] Referral ID Status Reason Start Date Expiration Date V isits Requested Visits Authorized [id number] Closed Auto-Generate d Referral 12/24/2023 01/22/2025 1 1 [facility] for referral (narrative)* Diagnostic Procedure Only (Routine) - Closed Specialty Diagnoses / Procedures Referred By Vince matthew Referred To Contact XR IMAGING Diagnoses Bilateral ankle pain, unspecified chronicity Procedures XR ANKLE GENERAL 3V AP/LAT/OBL BILATERAL RADEX ANKLE COMPLETE MINIMUM 3 VIEWS Evelyne Carcamo DPM [address] [place] [address] [place] [address] Referral ID Status Reason Start Date Expiration Date V isits Requested Visits Authorized [id number] Closed Auto-Generate d Referral 07/10/2023 08/08/2024 1 1 * Diagnostic Procedure Only (Routine) - Closed Specialty Diagnoses / Procedures Referred By Contac t Referred To Contact XR IMAGING Diagnoses Bilateral foot pain Procedures XR FOOT GENERAL 3V AP/LAT/OBL BILATERAL RADEX FOOT COMPLETE MINIMUM 3 VIEWS Evelyne Carcamo DPM [address] [place] [address] [place] [address] Referral ID Status Reason Start Date Expiration Date V isits Requested Visits Authorized [id number] Closed Auto-Generate d Referral 07/10/2023 08/08/2024 1 1 [facility] for referral (narrative) Referred by: CAROL ENRIQUEZ, [facility]OS [facility] [place] Reason for visit Narrative* Diagnostic Procedure Only (Routine) - Closed Specialty Diagnoses / Procedures Referred By Contac t Referred To Contact XR IMAGING Diagnoses Bilateral ankle pain, unspecified chronicity Procedures XR ANKLE GENERAL 3V AP/LAT/OBL BILATERAL RADEX ANKLE COMPLETE MINIMUM 3 VIEWS Evelyne Carcamo DPM [address] [place] [address] [place] [address] Referral ID Status Reason Start Date Expiration Date V isits Requested Visits Authorized [id number] Closed Auto-Generate d Referral 07/10/2023 08/08/2024 1 1 [facility] for visit Narrative* Imaging (Routine) - Authorized Specialty Diagnoses / Procedures Referred By Contac t Referred To Contact Radiology Diagnoses Palpitations Chest pain, unspecified Abnormal result of other cardiovascular function study Procedures CT angio coronary art with heartflow if score >30% Alonso Winn MD [address] [facility] [place] [address] Phone: tel: fax: Referral ID Status Reason Start Date Expiration Date Visits Requested Visits Authorized [id number] Authorized Perform Procedure 05/23/2024 05/23/2025 1 1 [facility] Work Phone: Summary Purpose Family History No Family History [...] Family History Records FoundNo Family History Records FoundNo Family History Records FoundNo Family History Records FoundNo Family History Records FoundNo Family History Records Found No data available for this section No Family History Records FoundNo Family History Records Found No data available for this section No Family History Records Found No data available for this section No data available for this section No Family History Records FoundNo Family History Records FoundNo Family History Records [...] Reason for Referral Reason please refer to Veronn mancuso for establishment of care. Hx of bilateral club foot, hx of 2 surgeries during childhood. Diagnosis 1 Club foot of both lo wer extremities (Q66.89) Referral Organization [facility] Referring Provider First Name Cheyenne Referring Provider Last Name Anh Referring Provider Specialty Nurse Pract itedson Referred Organization [facility] Referred Address [address],[address] Referred Provider Specialty Podiatry - S urgical Chiropody Referral Priority Routine General Notes Cheyenne Avila 09:30:01 AM >referral is ready to be sent once office note is completedCheyenne Avila 08/19/2021 08:34:16 AM >note is not completed yet Additional Source Comments INFORMATION SOURCE (unrecogn ized section and content) DATE CREATED AUTHOR 08/27/2021 [facility] DATE CREATED AUTHOR AUTHOR'S ORGANIZ ATION 10/23/2022 [facility] DATE CREATED AUTHOR AUTHOR'S ORGANIZ ATION 12/31/2023 [facility] DATE CREATED AUTHOR AUTHOR'S ORGANIZ ATION 05/30/2024 [facility] DATE CREATED AUTHOR AUTHOR'S ORGANIZ ATION 06/05/2024 [facility] DATE CREATED AUTHOR AUTHOR'S ORGANIZ ATION 07/09/2024 [facility] DATE CREATED AUTHOR AUTHOR'S ORGANIZ ATION 07/19/2024 [facility] DATE CREATED AUTHOR AUTHOR'S ORGANIZ ATION 07/25/2024 [facility] DATE CREATED AUTHOR AUTHOR'S ORGANIZ ATION 07/30/2024 [facility] DATE CREATED AUTHOR AUTHOR'S ORGANIZ ATION 08/23/2024 [facility] DATE CREATED AUTHOR AUTHOR'S ORGANIZ ATION 08/26/2024 [facility] DATE CREATED AUTHOR AUTHOR'S ORGANIZ ATION 08/29/2024 [facility] EPIC REASON FOR VISIT (unrecogniz ed section and content) Reason Comments Patient Request Reason Comments Established Patient Follow Up Pain Reason Comments Radiology XR Reason Comments Radiology XR Specialty Diagnoses / Procedures Referred By Contac t Referred To Contact XR IMAGING Diagnoses Left leg pain Procedures XR TIBIA FIBULA 2V AP/LAT LEFT RADIOLOGIC EXAMINATION TIBIA & FIBULA 2 VIEWS Evelyne Carcamo DPM [address] [place] [address] [place] [address] Referral ID Status Reason Start Date Expiration Date V isits Requested Visits Authorized [id number] Closed Auto-Generate d Referral 12/24/2023 01/22/2025 1 1 Reason Comments Infertility Reason Comments New Patient Visit Specialty Diagnoses / Procedures Referred By Contac t Referred To Contact Diagnoses Abnormal EKG Procedures ECG 12 lead (Clinic Performed) Jayce Trevino MD [address] [address] Phone: tel: fax: Referral ID Status Reason Start Date Expiration Date V isits Requested Visits Authorized [id number] Authorized 07/28/2024 07/28/2025 1 1 Patient Care team informatio n (unrecognized section and content) Business Intelligence Analyst Relationship Specialty Start Date End Date Clint Ortiz II, DO [address] [place] [address] [place] [address] Referring Family Medicine 07/06/23 Business Intelligence Analyst Relationship Specialty Start Date End Date Clint Ortiz DO PCP - General 11/21/22 Business Intelligence Analyst Relationship Specialty Start Date End Date Clint Ortiz II, DO [address] [place] [place] [address] Referring Family Medicine 07/06/23 Business Intelligence Analyst Relationship Specialty Start Date End Date Clint Ortiz II, DO [address] [place] [address] [place] [address] Referring Family Medicine 07/06/23 Business Intelligence Analyst Relationship Specialty Start Date End Date Clint Ortiz II, DO [address] [place] [address] [place] [address] Referring Family Medicine 07/06/23 Business Intelligence Analyst Relationship Specialty Start Date End Date Clint Ortiz II, DO [address] [place] [place] [address] Referring Family Medicine 07/06/23 Business Intelligence Analyst Relationship Specialty Start Date End Date Clint Ortiz II, [address] [place] [address] [place] [address] Referring Family Medicine 07/06/23 Business Intelligence Analyst Relationship Specialty Start Date End Date Clint Ortiz II, DO [address] [place] [address] Referring Family Medicine 07/06/23 Business Intelligence Analyst Relationship Specialty Start Date End Date Clint Ortiz DO PCP - General 11/21/22 Business Intelligence Analyst Relationship Specialty Start Date End Date Clint Ortiz DO PCP - General 11/21/22 Business Intelligence Analyst Relationship Specialty Start Date End Date Generic Provider, No Assigned [facility] [place] [address] PCP - General Tobacco Sprayer 07/19/24 Business Intelligence Analyst Relationship Specialty Start Date End Date Generic Provider, No Assigned [facility] [place] [address] PCP - General Tobacco Sprayer 07/19/24 Source Comments (unrecognize d section and content) In the event this informatio n is protected by the Federal Confidentiality of Alcohol and Drug Abuse Patient Records regulations: The Federal rules restrict any use of the information to criminally investigate or prosecute any alcohol or drug abuse patient.[facility] the event this information is protected by the Federal Confidentiality of Alcohol and Drug Abuse Patient Records regulations: The Federal rules restrict any use of the information to criminally investigate or prosecute any alcohol or drug abuse patient.[facility] the event this information is protected by the Federal Confidentiality of Alcohol and Drug Abuse Patient Records regulations: The Federal rules restrict any use of the information to criminally investigate or prosecute any alcohol or drug abuse patient.[facility] the event this information is protected by the Federal Confidentiality of Alcohol and Drug Abuse Patient Records regulations: The Federal rules restrict any use of the information to criminally investigate or prosecute any alcohol or drug abuse patient.[facility] the event this information is protected by the Federal Confidentiality of Alcohol and Drug Abuse Patient Records regulations: The Federal rules restrict any use of the information to criminally investigate or prosecute any alcohol or drug abuse patient.[facility] the event this information is protected by the Federal Confidentiality of Alcohol and Drug Abuse Patient Records regulations: The Federal rules restrict any use of the information to criminally investigate or prosecute any alcohol or drug abuse patient.[facility] the event this information is protected by the Federal Confidentiality of Alcohol and Drug Abuse Patient Records regulations: The Federal rules restrict any use of the information to criminally investigate or prosecute any alcohol or drug abuse patient.[facility] the event this information is protected by the Federal Confidentiality of Alcohol and Drug Abuse Patient Records regulations: The Federal rules restrict any use of the information to criminally investigate or prosecute any alcohol or drug abuse patient.[facility] the event this information is protected by the Federal Confidentiality of Alcohol and Drug Abuse Patient Records regulations: The Federal rules restrict any use of the information to criminally investigate or prosecute any alcohol or drug abuse patient.[facility] FOR RECORDS PERTAINING TO PATIENTS WHO [...] BE BASED ON THE PRIMARY CLINICAL RECORDS. [facility]. provides no warranty or guarantee of the accuracy or completeness of information in this document.
[2024-09-02 10:08] LABS: Age Gdln ACOG Testing Note (.); HPV Aptima Negative (Negative); IGP, Aptima HPV, rfx 16/18,45 Note (.)
== END 2024-08-29 20:40 | disposition home or self-care (01) ==
LOC: LAB 20:39
PROVIDERS: PCP Family Medicine Adult Medicine; Visit Provider Obstetrics & Gynecology
DX: Z01.419 Encounter for gynecological examination (general) (routine) without abnormal findings (principal)
CPT/HCPCS: 87624; 88175

== ENCOUNTER 2024-09-14 07:59 | Outpatient (OUT) | payer OTHER, MEDICARE, SELFPAY ==
--- NOTE | 2024-09-14 08:17 | US_ITS ---
The [address] [address] Patient Name: ALBERTA LLAMAS MRN: [id number] date: 1985 Sex: F Assigned Patient Location: [facility] Current Patient Location: [facility] Accession/Order Number: [id number] Exam Date: 09/14/2024 09:01 Report Date: 09/14/2024 09:07 At the request of: LEE SERRATO DO Procedure: US pelvis w/ transvaginal PELVIC ULTRASOUND WITH TRANSVAGINAL IMAGING COMPARISON: 06/27/2022 CLINICAL DATA: Irregular vaginal bleeding. LMP 08/24/2024 Real-time ultrasound evaluation pelvis was performed utilizing both a transabdominal and transvaginal approach. TRANSABDOMINAL: Estimated uterine size is approximately 11.0 x 3.9 x 5.1 cm. The endometrial lining is estimated 8 - 9 mm. No focal myometrial abnormalities are seen. The ovaries are not visualized. TRANSVAGINAL: Transvaginal scans were performed to better evaluate the uterus and adnexa. By this approach, no focal myometrial abnormalities are seen. The endometrial lining is estimated at 13 - 14 mm. Both ovaries are visualized. The right ovary measures 3.1 x 3.4 x 2.8 cm . The left ovary measures 1.8 x 3.0 x 2.5 cm. There are no dominant adnexal cysts. There is documentation of ovarian blood flow. No free fluid is visualized. US/US pelvis w/ transvaginal IMPRESSION: WITHIN NORMAL LIMITS. Impression dictated by: Josefina Reina M.D.09/14/2024 9:07 AM Dictation Location: [place] [address] Electronically authenticated by: [id number] Y Date: 09/14/2024 09:07
--- OUTSIDE RECORDS SUMMARY | 2024-09-14 08:17 | XMS_ITS | CCD ---
Author Organization [facility] Care Team Providers Care Counter Installer Name Role Phone Petros Lion Unavailable WeaverMelissa [...] DR PEREZ Admitting Unavailable GRECHNY ., EFRAIN GIRMALDO Consulting Unavailabl e FAWWAD, REED H Primary [...] Unavailable NAS ., DR HOWARD Consulting Unavailable FAWVAD, [facility] H Primary Care Unavailable NAS ., DR HOWARD Attending Unavailable NAS ., DR HOWARD Admitting Unavailable NAS ., DR HOWARD Consulting Unavailable NAS ., DR HOWARD Attending Unavailable [facility], DR RUANO Primary Care Unavailable FAWAD, REED H Consulting Unavailable FAWAD, REED H Attending Unavailable FAWAD, REED H Admitting Unavailable FAWAD, REED H Primary Care Unavailable Clint Ortiz Primary Care Physician Unavail able Angel TIAN DO, Robert James Unavailable Clint Ortiz DO Primary Care Provider EVELYNE CARCAMO Referring Unavailable EVELYNE CARCAMO Attending Unavailable EVELYNE CARCAMO Referring Unavailable EVELYNE CARCAMO Referring Unavailable EVELYNE CARCAMO Attending Unavailable EVELYNE CARCAMO Attending Unavailable EVELYNE CARCAMO Referring Unavailable LIZZIE MEDINA Primary Care Physician Mikal LOVELL Admitting Unavailable Mikal LOVELL Attending Unavailable Clint Ortiz Admitting Unavailable Clint [...] Unavailable Carmen, DO Ho SAnanya Admitting Unavailable Keaotn, Jojo M Attending Unavailable MD Alonso Winn Attending Unavailable MD Alonso Winn Admitting Unavailable Clint Ortiz Attending Unavailable LIZZIE MEDINA Attending UnavailMikal Billy Admitting Unavailable Mikal LOVELL Attending Unavailable [...] ASSIGNED PCP Primary Care Unavailable Generic Provider , No Assigned Pcp Primary Car e Provider Unavailable JAYCE TREVINO Attending Unavailable GENERIC PROVIDER, NO ASSIGNED PCP Primary Care Unavailable JAYCE TREVINO Referring Unavailable MINA MEDINA Attending Unav MINA Thornton Admitting Unav ailMD Alonso Urbina Attending Unavailable MD Alonso Winn Admitting Unavailable MINA MEDINA Attending Unav ailable TIMNITHYA DAWN H Attending Unavailable MIKAL LOVELL Attending Unavailable MIKAL LOVELL Attending Unavailable Alonso Winn Referring Unavailable Alonso Winn Admitting Unavailable Alonso Winn Attending Unavailable TimmisMarquezNithya H Referring Unavailable Timmis Nithya H Admitting Unavailable Timmis, Nithya H Attending Unavailable LIZZIE MEDINA Attending Unavailabl e LIZZIE MEDINA Admitting Unavailabl e LIZZIE MEDINA Attending Unavailabl e Jojo Pugh Attending Unavailable Jojo Pugh Attending Unavailable Jojo Pugh Attending Unavailable Jojo Pugh Attending Unavailable Jojo Pugh Attending Unavailable Jojo Pugh Attending Unavailable Allergies Allergy Classification Reported Allergen(s) Allergy Type Date of Onset Reaction(s) Facility (20 sources) ziprasidone; Translations: [ziprasidone] Drug Allergy 3 anaphylaxis, Anaphylaxis (disorder) [facility] (5 sources) ziprasidone; Translations: [Geodon] Drug Allergy [facility] (1 source) [facility] [place] [place] Drug allergy (disorder) [facility] (4 sources) ziprasidone Drug Allergy 3 Anaphylaxis [facility] (4 sources) ziprasidone; Translations: [ZIPRASIDONE HCL] Drug Allergy 5 Anaphylaxis [facility] Medications Current Medications Medication Drug Class(es) Dates Sig (Normalized) Sig (Original) acetaminophen 325 mg / oxyCODONE hydrochloride 5 mg oral tablet (2 sources) Opioid Agonist Start: 12-23-2023 End: 12-26-2023 Percocet 5 mg-325 mg oral tablet 1 tab(s), Oral, TID for 3 day(s), 9 tab(s), Refill(s) 0, [facility]/pharmacy #[id number], 152, cm, 12/23/23 14:12:00 EDT, Height/Length Dosing, 88.2, kg, 12/23/23 14:09:00 EDT, Weight Dosing Start Date: 12/23/23 Stop Date: 12/26/23 Status: Ordered Start: 12-23-2023 End: 12-26-2023 take 1 tablet by mouth every six hours as needed PERCOCET 5-325 mg tablet Take 1 tablet by mouth every 6 hours as needed for pain. 0 12/23/2023 12/26/2023 Active [id number] 200 actuat albuterol 0.09 mg/actuat metered dose [...] CTA, # 1 tab(s), Refills(s) 0, Pharmacy: [facility]/pharmacy #[id number], 152, cm, 04/28/24 7:53:00 EST, Height/Length Dosing, 92, kg, 04/28/24 7:53:00 EST, Weight Dosing Start Date: 05/23/24 Status: Ordered atomoxetine 40 mg oral capsule (1 source) Norepinephrine Reuptake Inhibitor Start: 10-22-19 take 1 capsule by mouth once daily in the morning Strattera 40 mg Cap 40 mg = 1 cap(s), Oral, qAM, # 30 cap(s), Refills(s) 5, Pharmacy: [facility]/pharmacy #[id number], 158, cm, 09/29/22 9:07:00 EDT, [...] TID, # 90 tab(s), Refills(s) 11, Pharmacy: [facility]/pharmacy #[id number], 155, cm, 10/16/23 10:59:00 EDT, Height/Length Dosing, 83.4, kg, 10/16/23 10:59:00 EDT, Weight Dosing Start Date: 11/13/23 Status: Ordered Start: 10-16-2023 take 1 tablet by rossana th three times daily busPIRone 15 mg Tab 15 mg = 1 tab(s), Oral, TID, # 90 tab(s), Refills(s) 0, Pharmacy: [facility]/pharmacy #[id number], 155, cm, 10/16/23 10:59:00 EDT, Height/Length Dosing, 83.4, kg, 10/16/23 10:59:00 EDT, Weight Dosing Start Date: 10/16/23 Status: Ordered Start: 09-25-2023 take 1 tablet by rossana th twice daily busPIRone 10 mg Tab 10 mg = 1 tab(s), Oral, BID, # 60 tab(s), Refills(s) 11, [id number] 155, cm, 07/21/23 8:08:00 EST, Height/Length [...] 60 tab(s), Refills(s) 5, [id number], 158, cm, 04/21/23 8:07:00 EST, Height/Length [...] TID, # 90 tab(s), Refills(s) 3, Pharmacy: [facility]/pharmacy #[id number], 152, cm, 06/23/24 9:05:00 EST, Height/Length Dosing, 91.4, kg, 06/23/24 9:05:00 EST, Weight Dosing Start Date: 06/23/24 Status: Ordered Start: 05-11-2024 take 1 tablet by rossana th three times daily clonazepam 1 mg Tab 1 mg = 1 tab(s), Oral, TID, # 90 tab(s), Refills(s) 0, [id number], 152, cm, 04/28/24 7:53:00 EST, Height/Length Dosing, 92, kg, 04/28/24 7:53:00 EST, Weight Dosing Start Date: 05/11/24 Status: Ordered Start: 03-22-2024 take 1 tablet by rossana three times daily clonazepam 1 mg Tab 1 mg = 1 tab(s), Oral, TID, # 90 tab(s), Refills(s) 0, [id number], 152, cm, 03/22/24 14:58:00 EDT, Height/Length Dosing, 95, kg, 03/22/24 14:58:00 EDT, Weight Dosing Start Date: 03/22/24 Status: Ordered Start: 03-04-2024 take 1 tablet by [facility] twice daily ClonazePAM 0.5 mg Tab 0.5 mg = 1 tab(s), Oral, BID, # 60 tab(s), Refills(s) 1, [id number], 152, cm, 03/04/24 12:01:00 EDT, Height/Length Dosing, 92.5, kg, 03/04/24 12:01:00 EDT, Weight Dosing Start Date: 03/04/24 Status: Ordered DULoxetine 30 mg delayed release oral capsule (15 sources) Serotonin and Norepinephrine Reuptake Inhibitor Start: 06-25-2023 take 1 capsule by mouth twice daily duloxetine 30 mg oral delayed release capsule 30 mg = 1 cap(s), Oral, BID, # 60 cap(s), Refills(s) 2, [id number], 155, cm, 06/25/23 15:06:00 EST, Height/Length Dosing, 87.5, kg, 06/25/23 15:06:00 EST, Weight Dosing Start Date: 06/25/23 Status: Ordered Start: 06-25-2023 take 1 capsule by [facility] once daily DULoxetine (CYMBALTA) 30 mg capsule Take 1 capsule by mouth once daily. 06/25/2023 Active Comment on above: Take 1 capsule by mo [facility] once daily. hydrOXYzine hydrochloride 25 mg oral tablet (5 sources) Antihistamine Start: 01-28-20 take 1 tablet by mouth four times daily as needed hydrOXYzine hydrochloride 25 mg Tab 25 mg = 1 tab(s), Oral, QID, PRN for itching, # 40 tab(s), Refills(s) 0, [id number], 152, cm, 01/28/24 15:50:00 EDT, Height/Length [...] on above: Take 2 tablets by mo [facility] once daily. levothyroxine sodium 0.05 mg oral tablet (20 sources) l-Thyroxine Start: take 1 tablet by mouth once daily levothyroxine 50 mcg (0.05 mg) Tab 50 mcg = 1 tab(s), Oral, Daily, # 90 tab(s), Refills(s) 4, [id number], 155, cm, 10/16/23 10:59:00 EDT, Height/Length Dosing, 83.4, kg, 10/16/23 10:59:00 EDT, Weight Dosing Start Date: 11/25/23 Status: Ordered Start: 07-21-2023 take 1 tablet by [facility] once daily levothyroxine 50 mcg (0.05 mg) Tab 50 mcg = 1 tab(s), Oral, Daily, # 30 tab(s), Refills(s) 5, Pharmacy: [facility]/pharmacy #[id number], 155, cm, 07/21/23 8:08:00 EST, [...] Daily, # 30 tab(s), Refills(s) 5, Pharmacy: [facility]/pharmacy #[id number], 158, cm, 04/21/23 8:07:00 EST, Height/Length Dosing, 86, kg, 04/21/23 8:07:00 EST, Weight Dosing Start Date: 04/21/23 Status: Ordered Start: 01-07-2023 take 1 tablet by rossana once daily levothyroxine 88 mcg (0.088 mg) Tab 88 mcg = 1 tab(s), Oral, Daily, # 30 tab(s), Refills(s) 5, [id number], 158, cm, 01/07/23 10:49:00 EDT, Height/Length Dosing, 86.3, kg, 01/07/23 10:49:00 EDT, Weight Dosing Start Date: 01/07/23 Status: Ordered Start: 11-21-2022 take 1 tablet by rossana once daily levothyroxine 100 mcg (0.1 mg) Tab 100 mcg = 1 tab(s), Oral, Daily, # 90 tab(s), Refills(s) 4, Pharmacy: [facility]/pharmacy #[id number], 158, cm, 09/29/22 9:07:00 EDT, Height/Length Dosing, 92.3, kg, 09/29/22 9:07:00 EDT, Weight Dosing Start Date: 11/21/22 Status: Ordered Start: 09-29-2022 take 1 tablet by rossana once daily levothyroxine 100 mcg (0.1 mg) Tab 100 mcg = 1 tab(s), Oral, Daily, # 30 tab(s), Refills(s) 0 Start Date: 09/29/22 Status: Ordered take 1 tablet by rossana in the morning levothyroxine (Synthroid, Levoxyl) 100 mcg tablet Take 1 tablet (100 mcg) by mouth early in the morning.. Active take 1 tablet by rossana once daily in the morning Levothroid 100 MCG 1 tablet in the morning on an empty stomach Orally Once a day Active Comment on above: Take 1 tablet by rossana th every afternoon. LORazepam 0.5 mg oral tablet (7 sources) Benzodiazepine Start: 4 take 1 tablet by mouth once daily at bedtime LORazepam 0.5 mg Tab 0.5 mg = 1 tab(s), Oral, Once a day (at bedtime), # 30 tab(s), Refills(s) 1, Pharmacy: [facility]/pharmacy #[id number], 152, cm, 01/28/24 15:50:00 EDT, [...] BID, # 180 tab(s), Refills(s) 4, Pharmacy: [facility]/pharmacy #[id number], 155, cm, 10/16/23 10:59:00 EDT, [...] day(s), # 7 tab(s), Refills(s) 0, Pharmacy: [facility]/pharmacy #[id number], 152, cm, 01/28/24 15:50:00 EDT, [...] puff(s), Inhalation, q6hr, 8.5 gm, Refill(s) 11, [facility]/pharmacy #[id number], 158, cm, 04/21/23 8:07:00 EST, Height/Length Dosing, 86, kg, 04/21/23 8:07:00 EST, Weight Dosing Start Date: 05/04/23 Status: Ordered Start: 10-29-2022 take 8.5 g by inhala tion every six hours Albuterol (Eqv-ProAir HFA) 90 mcg/inh inhalation aerosol 180 mcg, 2 puff(s), Inhalation, q6hr, 8.5 gm, Refill(s) 11, [facility]/pharmacy #[id number], 158, cm, 09/29/22 9:07:00 EDT, [...] Daily, # 30 tab(s), Refills(s) 0, Pharmacy: [facility]/pharmacy #[id number], 158.3, cm, 12/03/22 11:34:00 EDT, Height/Length Dosing, 87.3, kg, 12/03/22 11:34:00 EDT, Weight Dosing Start Date: 12/03/22 Status: Ordered Comment on above: Take 1 tablet by rossana th every afternoon. 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; Translations: [DIRECTOR OF RESEARCH AND DEVELOPMENT USE ORAL HYPOGLYCEMIC DX] Onset: 07-01-2022 Episodic [...] Range Facil ity Ambulatory Visit Summaryon 0 09-05-2024 Ambulatory Visit Summary Ambulatory Visit Summary DOMINIQUE LLAMAS :1985 Visit Date:09/05/2024 Ambulatory Visit Instructions Your Diagnosis Mild recurrent major depression History of posttraumatic stress disorder (PTSD) ADHD Your Care Team Attending Physician - Jojo Torres Primary Care Physician - CARLOS JARAMILLO This Is Your Medications List [facility] Prescription (permanent handicap placard) albuterol (Albuterol (Eqv-ProAir HFA) 90 mcg/inh inhalation aerosol) aspirin (Adult Aspirin 81 mg oral tablet, chewable) levothyroxine (levothyroxine 50 mcg (0.05 mg) Tab) metformin (metformin 500 mg Tab) multivitamin, ( Multivitamins) phentermine (Adipex-P 37.5 mg oral capsule) semaglutide (Wegovy (0.25 mg dose) subcutaneous solution) Procedures Performed Implantation of insertable loop recorder (04/28/2024), Carpal tunnel, delivery only;, Colonoscopy, Dilation and curettage, diagnostic and/or therapeutic (nonobstetrical), Gallbladder operation. What to do next Scheduled Follow-Up Appointments Thursday 11:00 AM EDT With: Jojo Torres Where: [facility] COUNT INCLUDES [facility] [address] [place] [address] [place] [address]- Thursday 11:00 AM EDT With: Jojo Torres Where: [facility] [address] [place] [address] [place] [address]- 2024 9:45 AM EDT With: Where: Cardiovascular Services Thursday 11:00 AM EDT With: CARLOS JARAMILLO Where: [facility] [address] [place] [address]- Wednesday Sep. 17, 2025 11:00 AM EDT With: Where: [facility] [place] [address] [place] [address]- Medications What How Much When Why Instructions Unchanged albuterol (Albuterol (Eqv-ProAir HFA) 90 mcg/ inh inhalation aerosol) 2 Puffs Inhalation Every 6 hours Unchanged aspirin (Adult Aspirin 81 mg oral tablet, chewable) Chewed Every day Unchanged levothyroxine (levothyroxine 50 mcg (0.05 mg) Tab) 1 Tablets By Mouth Every day Hypothyroidism Unchanged metformin (metformin 500 mg Tab) 1 Tablets By Mouth 2 times a day Unchanged Misc Prescription (permanent handicap placard) See instructions Clubfoot for chronic medical condition Unchanged multivitamin, ( Multivitamins) 1 Tablets By Mouth Every day Unchanged phentermine (Adipex-P 37.5 mg oral capsule) 1 Capsules By Mouth Every day Obesity Unchanged semaglutide (Wegovy (0.25 mg dose) subcutaneous solution) 0.25 Milligram Subcutaneous Every week Obesity Allergies Geodon (Anaphylaxis) Problems Ongoing - Any problem that you are currently receiving treatment for. ADHD Ankle swelling Anxiety Asthma Bilateral club feet BMI 40.0-44.9, adult Linden of foot Depression Fibromyalgia History of foot [...] for choosing us for your care. Normal [facility] Ambulatory Visit Summaryon 0 08-22-2024 Ambulatory Visit [...] Follow-Up Appointments Thursday 10:00 AM EDT With: [facility] Where: [facility] COUNT [facility]CLUDES [facility] [address] [place] [address] [place] [address] 2024 9:45 AM EDT With: Where: [facility] Thursday 11:00 AM EDT With: Where: [facility] [address] [place] [address]- Medications What How Much When Why Instructions New semaglutide (Wegovy (0.25 mg dose) subcutaneous solution) 0.25 Milligram Subcutaneous Every week Obesity Refills: 1 Pickup at [facility]/pharmacy #[id number] Unchanged albuterol (Albuterol (Eqv-ProAir HFA) 90 mcg/ [...] physician if questions or concerns Pharmacy Information [facility]/pharmacy #[id number]: [address] [place] [id number] [phone] What How Much When Why Comments Stop [...] Asthma Bilateral club feet BMI 40.0-44.9, adult Lind[place] of foot Depression Fibromyalgia History of foot [...] for choosing us for your care. Normal [facility] Office/Clini c Noteon 08-22-2024 Family [...] qWeek, # 2 mL, Refills(s) 1, Pharmacy: [id number], 152, cm, 08/22/24 10:38:00 EDT, Height/Length Dosing, 93.5, kg, 08/22/24 10:38:00 EDT, Weight Dosing Follow-up No qualifying data available Problem List/Past Medical History Ongoing ADHD Ankle swelling Anxiety Asthma Bilateral club feet BMI 40.0-44.9, adult [place] of foot Depression Fibromyalgia History of foot [...] intravenous solution 100 mL Fluzone TIV PF [id number], 0.5 mL, IntraMuscular, Once Fluzone TIV PF [id number], 0.5 mL, IntraMuscular, Once levothyroxine 50 mcg [...] mL bag, 250 mL, IV, As Directed Wegovy (0.25 mg dose) subcutaneous solution, 0.25 mg, [...] malignant neopl (more content not included)... Normal [facility] Comment on above: Result Comment: Elec tronically Signed By: CARLOS JARAMILLO\.ashley\Date and Time Signed: 08/22/24 11:01 EDT US [...] thyroid nodules on ultrasound proposed by the [employer] (ACR) Ordering Provider: Nithya Oquendo FINAL REPORT Dictated: 08/19/2024 3:15 pm Alvin Jones MD Signed (Electronic Signature): 08/19/2024 3:15 pm Signed by: Alvin Jones MD Transcribed by: JOVANNY Technologist: RUBI Normal [facility] ECG 12 lead (Clinic Performe d)on 07-28-2024 EKG performed today shows sinus rhythm at a rate of 94 bpm QRS duration 74 ms QT corrected 487 ms. No evidence of preexcitation from baseline EKG. [facility] Work Phone: [facility] Work Phone: CT ANGIO CORONARY ART WITH H EARTFSILVIANO IF SCORE >30%on 07-19-2024 CT ANGIO CORONARY [...] PM -------- ORIGINAL REPORT -------- Dictation workstation: [id number] Interpreted By: Dieter Silva, STUDY: CT ANGIO CORONARY ART WITH HEARTFLOW IF SCORE >30%; 07/19/2024 12:14 pm INDICATION: Signs/Symptoms:CHES T PAIN. COMPARISON: None. ACCESSION NUMBER(S): [id number] ORDERING CLINICIAN: ALONSO WINN TECHNIQUE: Using multi-detector [...] 2. Coronary artery calcium score 0. Reading Metal Sander: Dr. Dieter Silva, Date: 07/19/2024 3:01 pm Signed by: Dieter Silva 07/19/2024 3:02 PM Dictation workstation: [id number] [facility] Comment on above: Order Comment: This exam [...] PM -------- ORIGINAL REPORT -------- Dictation workstation: [id number] [facility] Work Phone: 1. Normal coronary anatomy without evidence of atherosclerotic changes or stenotic disease. 2. Coronary artery calcium score 0. Reading Metal Sander: Dr. Dieter Silva, Date: 07/19/2024 3:01 pm Signed by: Dieter Silva 07/19/2024 3:02 PM Dictation workstation: [id number]ODAL Interpreted By: Dieter Silva, STUDY: CT ANGIO CORONARY ART WITH HEARTFLOW IF SCORE >30%; 07/19/2024 12:14 pm INDICATION: Signs/Symptoms:CHES T PAIN. COMPARISON: None. ACCESSION NUMBER(S): [id number] ORDERING CLINICIAN: ALONSO WINN TECHNIQUE: Using multi-detector [...] Signs/Symptoms:CHES T PAIN. COMPARISON: None. ACCESSION NUMBER(S): [id number] ORDERING CLINICIAN: ALONSO WINN TECHNIQUE: Using multi-detector [...] 2. Coronary artery calcium score 0. Reading Metal Sander: Dr. Dieter Silva, Date: 07/19/2024 3:01 pm Signed by: Dieter Silva 07/19/2024 3:02 PM Dictation workstation: [id number] [facility] Work Phone: Radiology Study observation (narrative) [facility] Work Phone: CTA Heart and Coronary arter ies WO and W contrast IVOrdered By: Jed Ulloa on 07-19-2024 [facility] Work Phone: CBC w/ Auto Diffon 5 Basophils/100 WBC (Bld) 0.4 % Normal 0.0-2.0 [facility] Comment on above: Performed By: #### 2 [id number] #### [facility] [address] [place] [address] Basophils/Leukocytes Auto (Bld) [Pure # fraction] 0.0 E9/L Normal 0.0-0.2 [facility] Comment on above: Performed By: #### 2 [id number] #### [facility] [address] [place] [address] Eosinophils (Bld) [#/Vol] 0.2 E9/L Normal 0.0-0.5 [facility] Comment on above: Performed By: #### 2 [id number] #### [facility] [address] [place] [address] Eosinophils/100 WBC (Bld) 2.9 % Normal 0.0-8.0 [facility] Comment on above: Performed By: #### 2 [id number] #### [facility] [address] [place] [address] Erythrocyte distribution width (RBC) [Ratio] 13.4 % Normal 10.9-14.2 [facility] Comment on above: Performed By: #### 2 [id number] #### [facility] [address] [place] [address] Hematocrit (Bld) [Volume fraction] 44.4 % Normal 34.0-46.0 [facility] Comment on above: Performed By: #### 2 [id number] #### [facility] [address] [place] [address] Hemoglobin (Bld) [Mass/Vol] 15.2 g/dL Normal 12.0-16.0 [facility] Comment on above: Performed By: #### 2 [id number] #### [facility] [address] [place] [address] Lymphocytes (Bld) [#/Vol] 2.7 E9/L Normal 1.0-4.0 [facility] Comment on above: Performed By: #### 2 [id number] #### [facility] [address] [place] [address] Lymphocytes/100 WBC (Bld) 34.3 % Normal 14.0-50.0 [facility] Comment on above: Performed By: #### 2 [id number] #### [facility] [address] [place] [address] MCH (RBC) [Entitic mass] 29.7 pg Normal 27.0-34.0 [facility] Comment on above: Performed By: #### 2 [id number] #### [facility] [address] [place] [address] MCHC (RBC) [Mass/Vol] 34.2 g/dL Normal 31.4-36.0 [facility] Comment on above: Performed By: #### 2 [id number] #### [facility] [address] [place] [address] MCV (RBC) [Entitic vol] 86.6 fL Normal 80.0-100.0 [facility] Comment on above: Performed By: #### 2 [id number] #### [facility] [address] [place] [address] Monocytes (Bld) [#/Vol] 0.3 E9/L Normal 0.2-1.0 [facility] Comment on above: Performed By: #### 2 [id number] #### [facility] [address] [place] [address] Neutrophils (Bld) [#/Vol] 4.6 E9/L Normal 2.0-7.5 [facility] Comment on above: Performed By: #### 2 [id number] #### [facility] [address] [place] [address] Neutrophils/100 WBC (Bld) 58.3 % Normal 36.0-75.0 [facility] Comment on above: Performed By: #### 2 [id number] #### [facility] [address] [place] [address] Platelet mean volume (Bld) [Entitic vol] 8.9 fL Normal 6.4-10.8 [facility] Comment on above: Performed By: #### 2 [id number] #### [facility] [address] [place] [address] Platelets (Bld) [#/Vol] 259.0 E9/L Normal 150.0-500.0 [facility] Comment on above: Performed By: #### 2 [id number] #### [facility] [address] [place] [address] RBC (Bld) [#/Vol] 5.1 E12/L Normal 4.3-5.9 [facility] Comment on above: Performed By: #### 2 [id number] #### [facility] [address] [place] [address] WBC corrected for nucl RBC Auto (Bld) [#/Vol] 7.8 E9/L Normal 4.0-11.0 [facility] Comment on above: Performed By: #### 2 [id number] #### [facility] [address] [place] [address] CHEMISTRYOrdered By: SYSTEM SYSTEM on 07-07-2024 Albumin [...] 07-07-2024 Albumin [Mass/Vol] 4.3 g/dL Normal 3.3-5.0 [facility] Comment on above: Performed By: #### 2 [id number] #### [facility] [address] [place] [address] Albumin/Globulin (S) [Mass conc ratio] 1.6 Normal 1.1-2.2 [facility] Comment on above: Performed By: #### 2 [id number] #### [facility] [address] [place] [address] ALP [Catalytic activity/Vol] 49 Int._Unit/L Normal 21-98 [facility] Comment on above: Performed By: #### 2 [id number] #### [facility] [address] [place] [address] ALT No additional P-5'-P [Catalytic activity/Vol] 16 Int._Unit/L Normal 6-46 [facility] Comment on above: Performed By: #### 2 [id number] #### [facility] [address] [place] [address] Anion gap [Moles/Vol] 12 mmol/L Normal 6-16 [facility] Comment on above: Performed By: #### 2 [id number] #### [facility] [address] [place] [address] AST [Catalytic activity/Vol] 13 Int._Unit/L Normal 5-43 [facility] Comment on above: Performed By: #### 2 [id number] #### [facility] [address] [place] [address] Bilirubin [Mass/Vol] 1.1 mg/dL Normal 0.0-1.1 [facility] Comment on above: Performed By: #### 2 [id number] #### [facility] [address] [place] [address] Calcium [Mass/Vol] 9.0 mg/dL Normal 8.9-11.1 [facility] Comment on above: Performed By: #### 2 [id number] #### [facility] [address] [place] [address] Chloride [Moles/Vol] 106 mmol/L Normal 101-111 [facility] Comment on above: Performed By: #### 2 [id number] #### [facility] [address] [place] [address] CO2 [Moles/Vol] 22 mmol/L Normal 21-31 [facility] Comment on above: Performed By: #### 2 [id number] #### [facility] [address] [place] [address] Creatinine [Mass/Vol] 0.7 mg/dL Normal 0.5-1.3 [facility] Comment on above: Performed By: #### 2 [id number] #### [facility] [address] [place] [address] Globulin (S) [Mass/Vol] 2.7 g/dL Normal 1.4-4.0 [facility] Comment on above: Performed By: #### 2 [id number] #### [facility] [address] [place] [address] Glucose [Mass/Vol] 135 mg/dL Normal 55-199 [facility] Comment on above: Performed By: #### 2 [id number] #### [facility] [address] [place] [address] Potassium [Moles/Vol] 3.6 mmol/L Normal 3.5-5.3 [facility] Comment on above: Performed By: #### 2 [id number] #### [facility] [address] [place] [address] Protein [Mass/Vol] 7.0 g/dL Normal 6.0-7.8 [facility] Comment on above: Performed By: #### 2 [id number] #### [facility] [address] [place] [address] Sodium [Moles/Vol] 136 mmol/L Normal 135-145 [facility] Comment on above: Performed By: #### 2 235474 #### [facility] [address] [place] [address] Urea nitrogen [Mass/Vol] 12 mg/dL Normal 5-21 [facility] Comment on above: Performed By: #### 2 [id number] #### [facility] [address] [place] [address] Urea nitrogen/Creatinine [Mass ratio] 17 No Units Normal 10-20 [facility] Comment on above: Performed By: #### 2 [id number] #### [facility] [address] [place] [address] HEMATOLOGYOrdered By: SYSTEM SYSTEM on 07-07-2024 Basophils/100 [...] Comment on above: Performed By: #### 2 [id number] #### [facility] [address] [place] [address] TIBC Calculatedon 07-07-2024 Iron binding capacity [Mass/Vol] 386 microgram/dL Normal 250-400 [facility] Comment on above: Performed By: #### 1 [id number] #### [facility] [address] [place] [address] Transferrin [Mass/Vol] 276 mg/dL Normal 200-370 [facility] Comment on above: Performed By: #### 1 [id number] #### [facility] [address] [place] [address] TSH With T4fr Reflexon 07-07 TSH Qn 0.95 m[IU]/L Normal 0.34-5.60 [facility] Comment on above: Performed By: #### 1 [id number] #### [facility] [address] [place] [address] Vit B12on 07-07-2024 Cobalamin (Vitamin B12) [Mass/Vol] 318 pg/mL Normal 50-1500 [facility] Comment on above: Performed By: #### 2 [id number] #### [facility] [address] [place] [address] eGFRon 07-07-2024 eGFR 113 mL/min/1.73 m2 Normal >=59 [facility] Comment on above: Performed By: #### 1 [id number] #### [facility] [address] [place] [address] Ambulatory Visit Summaryon 0 06-23-2024 Ambulatory Visit Summary Ambulatory Visit Summary FARHAD, DOMINIQUE M :1985 Visit Date:06/23/2024 Ambulatory Visit Instructions Your [...] Follow-Up Appointments Thursday 11:00 AM EST [facility] [address] [address] [place] [address]- Thursday 11:00 AM EST [facility]: [facility] Where: [facility] [address] [address] [place] [address]- 2024 11:45 AM EST With: Where: Cardiovascular Services Thursday 10:00 AM EDT With: CARLOS JARAMILLO Where: [place] [address] [place] [address]- Thursday 11:00 AM EDT With: Where: [address] [place] [address]- Someone Will Contact You Regarding These Appointments [facility] External Ambulatory Referral, Cardiology, Dr Trevino, , 06/23/24 9:48:00 EST, Heart palpitations Medications What How Much When Why Instructions Unchanged clonazepam (clonazepam 1 mg Tab) 1 Tablets By Mouth 3 times a day Anxiety Pickup at [facility]/pharmacy #[id number] Unchanged albuterol (Albuterol (Eqv-ProAir HFA) 90 mcg/ [...] physician if questions or concerns Pharmacy Information [facility]/pharmacy #[id number]: [address] [place], [place] [phone] Allergies Geodon (Anaphylaxis) Problems Ongoing - Any problem that you are currently receiving treatment for. ADHD Ankle swelling Anxiety Asthma Bilateral club feet BMI 40.0-44.9, adult Linden of foot Fibromyalgia History of foot surgery [...] for choosing us for your care. Normal [facility] Family Medicine Office/Clini c Noteon 06-23-2024 Family [...] testing with her today. She sees Dr Oquendo yearly for her thyroid management. She does have some modules in the thyroid and Dr Oquendo is monitoring yearly. Anxiety: well controlled on [...] TID, # 90 tab(s), Refills(s) 3, Pharmacy: [facility]/pharmacy #[id number], 152, cm, 06/23/24 9:05:00 EST, [...] Hypothyroidism (E03.9: Hypothyroidism, unspecified) continue with Dr Oquendo Heart palpitations (R00.2: Palpitations) referral to Dr Trevino continue with [facility] cardiology Ordered: [facility] External Ambulatory Referral Follow-up No qualifying data available Problem List/Past Medical History Ongoing ADHD Ankle swelling Anxiety Asthma Bilateral club feet BMI 40.0-44.9, adult Linden of foot Fibromyalgia History of foot surgery [...] intravenous solution 100 mL Fluzone TIV PF [id number], 0.5 mL, IntraMuscular, Once Fluzone TIV PF [id number], 0.5 mL, IntraMuscular, Once (more content not included)... [facility] Comment on above: Result Comment: Elec tronically Signed By: CARLOS JARAMILLO\.br\Date and Time Signed: 06/23/24 09:58 EST Ambulatory Visit Summaryon 1 08-02-2023 Ambulatory Visit Summary Ambulatory Visit Summary DOMINIQUE LLAMAS :1985 Visit Date:02/23/2024 Ambulatory Visit Instructions Your Diagnosis Encounter for annual wellness visit (AWV) in Medicare patient Hypothyroidism Mild recurrent major depression PCOS (polycystic ovarian syndrome) Adult BMI 39.0-39.9 kg/sq m Obesity due to excess calories Influenza vaccine needed Your Care Team Attending Physician - Clint Ortiz DO Primary Care Physician - CARLOS JARAMILLO This Is Your Medications List Misc Prescription [...] 11:00 AM EST With: Jojo Torres Where: [facility] COUNT [facility]CLUDES [facility] [address] [place] [address]- 2024 8:40 AM EST With: CARLOS JARAMILLO Where: [facility] [address] [place] [address]- Thursday 11:00 AM EST With: Keaton VELEZJojo Where: [facility] COUNT INCLUDES THE [facility] [address] [place] [address]- Thursday 11:00 AM EST With: Jojo Torres Where: [facility] [address] [place] [address]- 2024 11:45 AM EST With: Where: [facility] Thursday 11:00 AM EDT With: Where: [facility] [address] [place] [address]- Medications What How Much When Why Instructions [...] Asthma Bilateral club feet BMI 40.0-44.9, adult Linden of foot Fibromyalgia History of foot surgery [...] causes? C (more content not included)... Normal [facility] Family Medicine Office/Clini c Noteon 06-01-2024 Family [...] of clutter to prevent tripping and/or falling. [place] Advance Directives reviewed, on file in chart. [...] no concerns. Reviewed pain symptoms with patient: 010 Reviewed all outside providers that patient follows. [...] Reviewed additio (more content not included)... Normal [facility] Comment on above: Result Comment: Elec tronically Signed By: Clint Ortiz DO\.br\Date and Time Signed: 06/01/24 15:56 EST\.br\Electronically Co-Signed By: Chaka Coleman LPN\.br\Date and Time Co-Signed: 06/01/24 15:11 EST Interdisciplinary Note - Soc ial Workeron 05-30-2024 Interdisciplinary Note - Behavioral Modification Assistant Interdisciplinary Note - Behavioral Modification Assistant Consult for positive depression screen received. Patient is current with [facility] for appropriate treatment. SW will remain available. [facility] CHEMISTRYOrdered By: SYSTEM SYSTEM on 05-27-2024 Creatinine [Mass/Vol] 0.9 mg/dL Normal 0.5 - 1.3 mg/dL Remisol Chem eGFR 83 mL/min/1.73 m2 Normal >=59mL/min /1.73 m2 Remisol Chem Creatinineon 05-27-2024 Creatinine [Mass/Vol] 0.9 mg/dL Normal 0.5-1.3 [facility] Comment on above: Performed By: #### 2 [id number] #### [facility] [address] [place] [address] eGFRon 05-27-2024 eGFR 83 mL/min/1.73 m2 Normal >=59 [facility] Comment on above: Performed By: #### 1 [id number] #### [facility] [address] [place] [address] Heart and Vascular Office/Cl inic Noteon 05-26-2024 [...] 01:04 PM BP: 129/98 mmHg Patient Location: [facility] Ambulatory(s) [facility] HR: 86 : 1985 Gender: Female Height: 60 in Age: 39 yrs Ethnicity: [facility] Weight: 202 lb Reason For Study: [...] Asthma Bilateral club feet BMI 40.0-44.9, adult Linden of foot Fibromyalgia History of foot surgery [...] bag, 250 mL, IV, As Directed Allergies Nima (Anaphylaxis) Social History Alcohol - Denies Alcohol Use, 02/18/2023 Current. Liquor. 1-2 times per year., 04/24/2024 Substance Abuse - Denies Substance Abuse, 02/18/2023 Current. Marijuana. 3-5 times per week. Previous treatment: None., 04/24/2024 Tobacco Former smoker, quit more than 30 days ago Tobacco Use:., 05/26/2024 Family History Depression: Sister. Hypertension: Mother, Father and Sis (more content not included)... [facility] Comment on above: Result Comment: Elec tronically Signed By: Tatum JOSEPH, Alonso Junior\.br\Date and Time Signed: 05/26/24 15:03 EST Family Medicine Office/Clini c Noteon 05-08-2024 Family Medicine Office/Clinic Note Family Medicine Office/Clinic Note HPI Staff Dominique Llamas new to me transferring from Dr. Starks for medication MGMT pt states needs help with anxiety and is in counseling for depression Jojo Pugh- [facility]: Colonoscopy: about 4 year ago done [...] 38 year old female who presents to [facility]. She was seeing Dr. Ortiz, however, she [...] Asthma Bilateral club feet BMI 40.0-44.9, adult Linden of foot Fibromyalgia History of foot surgery [...] Primary malig (more content not included)... [facility] Comment on above: Result Comment: Elec tronically Signed By: CARLOS JARAMILLO\.br\Date and Time Signed: 05/08/24 17:37 EST Ambulatory Visit Summaryon 1 07-02-2023 Ambulatory Visit Summary Ambulatory Visit Summary DOMINIQUE LLAMAS :1985 Visit Date:05/02/2024 Ambulatory Visit Instructions Your Diagnosis Mild recurrent major depression History of posttraumatic stress disorder (PTSD) Your Care Team Attending Physician - Jojo Torres Primary Care Physician - CARLOS JARAMILLO This Is Your Medications List Misc Prescription [...] 11:00 AM EST With: Jojo Torres Where: [facility] COUNT [facility]CLUDES [facility] [address] [address] [place] [address]- Thursday 2:00 PM EST With: CARLOS JARAMILLO Where: [facility] [place] [address] [place] [address]- 2023 2:45 PM EST With: Tatum JOSEPH, Alonso Junior Where: Cardiology Clinic Thursday 11:00 AM EST With: Jojo Torres Where: [facility] [address] [address] [place] [address]- Thursday 11:00 AM EST [facility]: [facility]: [facility] [address] [place] [address]- Thursday 11:00 AM EST With: Jojo Torres Where: [facility] [address] [place] [address]- Thursday 11:00 AM EST With: Jojo Torres Where: [facility] [address] [place] [address]- 2024 11:45 AM EST With: Where: Cardiovascular Services Thursday 11:00 AM EDT With: Where: [facility] [place] [address] [place] [address]- Medications What How Much When Why Instructions [...] Asthma Bilateral club feet BMI 40.0-44.9, adult Linden of foot Fibromyalgia History of foot surgery [...] for choosing us for your care. Normal [facility] Inpatient Clinical Summaryon 04-28-2024 Inpatient Clinical Summary Inpatient Clinical Summary [address] [address] Clinical Summary Person Information: Name: DOMINIQUE LLAMAS Age: 39 Years : 1985 Sex: Female PCP: CARLOS JARAMILLO Marital Status: Phone: [phone] Race: White Ethnicity: Non- or Language: Kenyan Visit Id: Visit Reason: R07.9, R00.2 Speciality: Acuity: Enc Type: Ambulatory/Same Day Surgery Med Service: Surgery Arrival: 04/28/2024 07:32:55 Discharge: Dispo Type: Address: [address] [place] [phone] Provider Notes: Diagnosis: Problems Active BMI 40.0-44.9, adult Sinus tachycardia Anxiety Stress at home Insect bites Screening for diabetes mellitus History of foot surgery Bilateral club feet Ankle swelling Linden of foot Hypokalemia ADHD Insulin resistance Smoker [...] MD Follow up: With: Address: When: Alonso Tatum [address] [place] [id number] [phone] Business (1) 05/26/2024 2:45 PM Comments: Keep scheduled appointment Type Location Start Finish State BH Therapy 60 [facility]CLUDES [facility] 05/02/2024 11:00 AM 05/02/2024 12:00 PM Confirmed BH Therapy 60 [facility] COUNT INCLUDES THE [facility] 05/20/2024 11:00 AM 05/20/2024 12:00 PM Confirmed FM Open [facility] FM [place] 05/23/2024 2:00 PM 05/23/2024 2:20 PM Confirmed BH Therapy 60 [facility] COUNT INCLUDES THE [facility] 06/03/2024 11:00 AM 06/03/2024 12:00 PM Confirmed BH Therapy 60 [facility] COUNT INCLUDES THE [facility] 06/15/2024 11:00 AM 06/15/2024 12:00 PM Confirmed BH Therapy 60 [facility] COUNT INCLUDES THE [facility] 06/29/2024 11:00 AM 06/29/2024 12:00 PM Confirmed BH Therapy 60 [facility] COUNT INCLUDES THE [facility] 07/15/2024 11:00 AM 07/15/2024 12:00 PM Confirmed FM Medicare Wellness Subsequent [facility] FM [place] 03/01/2025 11:00 AM 03/01/2025 12:00 PM Confirmed Patient Education Information: Implantable Loop Recorder Placement, Care After Normal [facility] Inpatient Patient Summaryon 04-28-2024 Inpatient Patient Summary Inpatient Patient Summary [address] [id number] Patient Discharge Instructions PERSON INFORMATION Name: DOMINIQUE [...] Follow up: With: Address: When: Alonso Winn [address] [place] [address] [place] [phone] Business (1) 05/26/2024 2:45 PM Comments: Keep scheduled appointment In the event that this physician does not participate in your insurance network, please consult with your insurance company to find a nearby participating provider. Type Location Start Finish State BH Therapy 60 [facility] COUNT INCLUDES THE [facility] 05/02/2024 11:00 AM 05/02/2024 12:00 PM Confirmed BH Therapy 60 [facility] 05/20/2024 11:00 AM 05/20/2024 12:00 PM Confirmed FM Open [facility] FM [place] 05/23/2024 2:00 PM 05/23/2024 2:20 PM Confirmed BH Therapy 60 [facility] COUNT INCLUDES THE [facility] 06/03/2024 11:00 AM 06/03/2024 12:00 PM Confirmed BH Therapy 60 [facility] COUNT INCLUDES [facility] 06/15/2024 11:00 AM 06/15/2024 12:00 PM Confirmed BH Therapy 60 [facility] COUNT INCLUDES THE [facility] 06/29/2024 11:00 AM 06/29/2024 12:00 PM Confirmed BH Therapy 60 [facility] COUNT INCLUDES THE [facility] 07/15/2024 11:00 AM 07/15/2024 12:00 PM Confirmed FM Medicare Wellness Subsequent [facility] FM [place] 03/01/2025 11:00 AM 03/01/2025 12:00 PM Confirmed [...] incision. Make (more content not included)... [facility] Heart and Vascular Office/Cl inic Noteon 04-11-2024 [...] Asthma Bilateral club feet BMI 40.0-44.9, adult Linden of foot Fibromyalgia History of foot surgery [...] influenza v (more content not included)... Normal [facility] Comment on above: Result Comment: [...] 11:00 AM EDT With: Jojo Torres Where: [facility] [address] [place] [address]- Thursday 11:00 AM EDT With: Jojo Torres Where: [facility] [address] [place] [address]- Thursday 11:00 AM EST With: Jojo Torres Where: [facility] [address] [address]- Thursday 11:00 AM EST With: Jojo Torres Where: [facility] [address] [address]- Thursday 11:00 AM EST With: Jojo Torres Where: [facility] [address] [place] [address]- Thursday 2:00 PM EST With: CARLOS JARAMILLO Where: [place] [address] [place] [address]- Thursday 11:00 AM EST With: Jojo Torres Where: [facility] [address] [address] [place] [address]- Thursday 11:00 AM EST With: Jojo Torres Where: [facility] [address] [place] [address]- Thursday 11:00 AM EST With: Jojo Torres Where: [facility] [address] [address] [place] [address]- Thursday 11:00 AM EST With: Jojo Torres Where: [facility] [address] [address]- Thursday 11:00 AM EDT With: Where: [place] [address] [place] [address]- Medications What How Much When Why Instructions Changed clonazepam (clonazepam 1 mg Tab) 1 Tablets By Mouth 3 times a day Anxiety Pickup at [facility]/pharmacy #[id number] Unchanged albuterol (Albuterol (Eqv-ProAir HFA) [...] physician if questions or concerns Pharmacy Information [facility]/pharmacy #[id number]: [address] [place], [place] [phone] Allergies Geodon (Anaphylaxis) Problems Ongoing - Any problem that you are currently receiving treatment for. ADHD Ankle swelling Anxiety Asthma Bilateral club feet BMI 40.0-44.9, adult Linden of foot Fibromyalgia History of foot surgery [...] you for choosing us for your care. [facility] Ambulatory Visit Summaryon 0 03-04-2024 Ambulatory Visit [...] 11:00 AM EDT With: Jojo Torres Where: [facility] [address] [address] [place] [address]- Thursday 11:00 AM EDT With: Jojo Torres Where: [facility] [address] [address]- Thursday 11:00 AM EDT With: Jojo Torres Where: [facility] [address] [address] [place] [address]- Thursday 11:00 AM EST With: Jojo Torres Where: [facility] [address] [address] [place] [address]- Thursday 11:00 AM EST With: Jojo Torres Where: [facility] [address] [address] [place] [address]- Thursday 11:00 AM EST With: Jojo Torres Where: [facility] [address] [place] [address] [place] [address]- 2023 1:00 PM EST With: Clint Ortiz DO Where: [facility] [address] [place] [address] [address] [place] [address]- Thursday 11:00 AM EST With: Jojo Torres Where: [facility] [address] [place] [address] [place] [address]- Thursday 11:00 AM EST With: Jojo Torres Where: [facility] [address] [place] [address]- Thursday 11:00 AM EST With: Jojo Torres Where: [facility] [address] [place] [address]- Thursday 11:00 AM EST With: Jojo Torres Where: [facility] [address] [address]- Thursday 11:00 AM EDT With: Where: [facility] [place] [address] [facility] [address] [place] [address]- You Need to Schedule the Following Appointments Follow Up with Angel GIL, ROSETTA Hubbard, PED When: Within 1 month Comments: 20 min slot To go instructions: stop lorazepam Begin clonazepam 0.5mg twice a day ------ *When you see providers outside of [facility], please request that they send office visit [...] month Where: [address] [place] [address] [phone] Medications What How Much When Why Instructions New clonazepam (ClonazePAM 0.5 mg Tab) 1 Tablets By Mouth 2 times a day Anxiety disorder, unspecified Refills: 1 Pickup at [facility]/pharmacy #[id number] Unchanged albuterol (Albuterol (Eqv-ProAir HFA) 90 mcg/ inh inhalation aerosol) 2 Puffs Inhalation Every 6 hours Contact prescribing physician if questions or concerns Unchanged levothyroxine (levothyroxine 50 mcg (0.05 mg) Tab) 1 Tablets By Mouth Every day Hypothyroidism Contact prescribing physician if questions or concerns Unchanged metformin (metformin 500 mg Tab) 1 Tablets By Mouth 2 time (more content not included)... Normal [facility] Family Medicine Office/Clini c Noteon 03-04-2024 Family [...] they lived in a trailer park in [place] the patient moved back to [place] to be closer to family until age 24 moved to [place] to move in with her grandma; when grandma kicked her out, her son went to live with her Dad and step mom The patient's real dad and stepmom have no guardianship The patient's step sister has custody - they have an on again off again relationship they will see him again around thanksgiving - we have to drive there to pickle pumper and drop off at their home the patient moved around until getting back with Xiang Otoole was living in [place] when they reconnected The patient is on disability for her bilat club feet for a long time The patient has 1 children; 12 miscarriages Screening: Colon Cancer screening: UPPER AND LOWER done in [place] with a UNCLEAR f/u recommended; this patient DOES have family history of colon cancer IN HER MOTHER - LIKELY done in 2020, in a surgery center [facility] to [facility] Breast cancer screening: START at age 40; this patient DOES have a family history of breast cancer Pap smear: 2022 DEXA: age Labs: _ Diabetes/ prediabetes: A1c: Hgb A1C %: 5.1 % (10/15/23 11:48:00) Smokers/ former smokers: Low dose lung CT: vapes daily List of Providers: Ortho - Dr. Carcamo - [facility] Deputy Fire Marshal - Dr. Lovell ENT - Dr. Oquendo - [facility] Counseling - Jojo Pugh To [...] continues to decline has been following denisse Pugh since her last appt they're talking about fight or flight i still cry every morning... mainly over my sister They still aren't sure how she passed - it could be another two months until they have the results of the autopsy January 28, 2024 - last appt here new bug bites recent travel to [place] - stayed with her grandmother after her [...] VLDL: 25 mg/dL (12/03/22 10:03:00) Future Appointments [facility] Appt. Date: 03/11/2024 11:00 [...] Exam Vit (more content not included)... [facility] Comment on above: Result Comment: Elec tronically Signed By: Clint Ortiz DO\Date and Time Signed: 03/04/24 13:23 EDT [facility] HCG.beta subunit Qn m[IU]/mL Normal 1-3 [facility] Comment on above: Result Comment: 'F N ON < 1 - 3' ' 0.2 - 1 WEEK = 5 TO 50' ' 1 - 2 WEEKS = 50 - 500' ' 2 - 3 WEEKS = 100 - 5000' ' 3 - 4 WEEKS = 500 - 23895' ' 4 - 5 WEEKS = 1000 - 00053' ' 5 - 6 WEEKS = 98776 - 675978' ' 6 - 8 WEEKS = 93941 - 727273' ' 8 - 12 WEEKS = 27124 - 874243' Performed By: #### 2 [id number] #### [facility] [address] [place] [address] CHEMISTRYOrdered By: SYSTEM SYSTEM on 02-11-2024 HCG.beta [...] 3 - 4 WEEKS = 500 - 43381' ' 4 - 5 WEEKS = 1000 - 34430' ' 5 - 6 WEEKS = 78315 - 563245' ' 6 - 8 WEEKS = 51602 - 417838' ' 8 - 12 WEEKS = 55240 - 351463' Family Medicine Office/Clini c Noteon 01-29-2024 Family [...] Cancer screening: UPPER AND LOWER done in [place] with a UNCLEAR f/u recommended; this patient DOES have family history of colon cancer IN HER MOTHER - LIKELY done in 2020, in a surgery center connected to [facility] Breast cancer screening: START at age [...] Providers: Ortho - Dr. Carcamo - [facility] Deputy Fire Marshal - Dr. Lovell ENT - Dr. Oquendo - [facility] To do list: Consider referral to local GI to f/u on prior testing Mammogram begin age 40 HPI staff / Chief Complaint confirmed with the patient Interval history: patient reports new bug bites she's the only one with bites - occurred across her breast, stomach, back, groin the last two weeks no new visitors recently traveled to [place] and stayed with grandma after her sister [...] next appt is next week - Jojo Keaton tried increasing buspirone to TID the middle [...] 8am and has interrupted sleep while her fyxgyd-xd-ypy sleeps Medicines she's tried that haven't worked: [...] VLDL: 25 mg/dL (12/03/22 10:03:00) Future Appointments [facility] MICHAEL Woodall Appt. Date: 02/23/2024 11:00 AM Scheduled Provider: MICHAEL Woodall [facility] Wellness Phone: -- Fax: -- From last note: To go instructions: When you call Dr. Carcamo's office prior to [...] SI Assessment/ (more content not included)... [facility] Comment on above: Result Comment: Elec tronically Signed By: Clint Ortiz DO\.br\Date and Time Signed: 01/29/24 17:03 EDT Ambulatory [...] Appointments Thursday 11:00 AM EDT With: [facility] INCLUD[facility] THE [facility] [address] [place] [address] [place] [address]- Thursday 11:00 AM EDT With: Where: [address] [place] [address]- Thursday 11:40 AM EDT With: Clint Ortiz DO Where: [place] [address] [place] [address]- You Need to Schedule the Following Appointments Follow Up with Clint Ortiz DO, ROSETTA, PED When: Within 1 month Comments: 20 min slot To go instructions: I have submitted a prescription for lorazepam I recommend that you take 1/2 tablet at bedtime hydroxyzine 25mg for itching - can take up to 4 times a day prednisone if that doesn't work; 20mg daily for 7 days ---- *When you see providers outside of [facility], please request that they send office visit [...] month Where: [address] [place] [address] [phone] Medications What How Much When Why Instructions New hydrOXYzine (hydrOXYzine hydrochloride 25 mg Tab) 1 Tablets By Mouth 4 times a day as needed for for itching Pickup at [facility]/pharmacy #[id number] New lorazepam (LORazepam 0.5 mg Tab) 1 Tablets By Mouth Once a day (at bedtime) Anxiety Refills: 1 Pickup at [facility]/pharmacy #[id number] New predniSONE (predniSONE 20 mg Tab) 1 Tablets By Mouth Every day Duration: 7 Days Pickup at [facility]/pharmacy #[id number] Unchanged albuterol (Albuterol (Eqv-ProAir HFA) [...] physician if questions or concerns Pharmacy Information [facility]/pharmacy #[id number]: [address] [place], [place] [id number] [phone] Allergies Geodon (Anaphylaxis) Problems Ongoing - Any problem that you are currently receiving treatment for. ADHD Ankle swelling Anxiety Asthma Bilateral club feet Linden of foot Fibromyalgia History of foot surgery History of migraine History of posttraumatic stress disorder (PTSD) Hypokalemia Hypothyroidism Insect bites Insulin resistance Mild recurrent major depression Pain of left calf PCOS (polycystic ovarian syndrome) Screening for diabetes mellitus Smoker Stress at home Thyroid nodule Patient Vázquez (more content not included)... [facility] CNOVon 12-25-2023 CNOV Office Visit (LOORRM) ---- DOMINIQUE LLAMAS ([id number]) 1985 F Date Time Provider Department 12/25/23 [...] , HBA1C , VITD25 in the last 84657 hours. X-ray deformity foot and ankle consistent [...] if persi (more content not included)... Normal [facility] Office/Clini c Noteon 12-25-2023 Family Medicine Office/Clinic [...] Cancer screening: UPPER AND LOWER done in [place] with a UNCLEAR f/u recommended; this patient DOES have family history of colon cancer IN HER MOTHER - LIKELY done in 2020, in a surgery center connected to [facility] Breast cancer screening: START at age [...] Providers: Ortho - Dr. Carcamo - [facility] Deputy Fire Marshal - Dr. Lovell ENT - Dr. Oquendo - [facility] HPI staff / Chief Complaint confirmed with the patient Interval history: every 4-7 years, disability will contact me to find out if I'm still disabled the patient reports that she's been on disability since age 30 LEFT calf pain developed on thursday out of the blue started mid day felt like the muscle was a little [...] appt with Dr. Carcamo on Thursday no patient manager around here was familiar with managing club [...] VLDL: 25 mg/dL (12/03/22 10:03:00) Future Appointments [facility] MICHAEL Woodall Appt. Date: 01/14/2024 3:20 PM Scheduled Provider: Clint Ortiz DO [address] [place], [id number] Phone: -- Fax: -- [facility] Jose C Appt. Date: 02/23/2024 11:00 AM Scheduled Provider: [...] 1-2 day (more content not included)... [facility] Comment on above: Result Comment: Elec tronically Signed By: Clint Ortiz DO\.br\Date and Time Signed: 12/25/23 20:48 EDT XR [...] joint effusion. IMPRESSION: No acute bony abnormality. Cellophane Worker: PSCB Transcribe Date/Time: Dec 25 2023 8:32A Dictated by : RYLAN BURCIAGA MD This examination was interpreted and the report reviewed and electronically signed by: RYLAN BURCIAGA MD on Dec 25 2023 8:34AM EST [id number] [facility] XR Tibia and Fibula - left A P and Lateralon 12-25-2023 IMPRESSION: No acute bony abnormality. Cellophane Worker: [facility] Transcribe Date/Time: Dec 25 2023 8:32A Dictated [...] knee joint effusion. DIVISION OF RADIOLOGY Provider, [facility] [place] - 12/25/2023 * * *Final Report* * [...] effusion. IMPRESSION IMPRESSION: No acute bony abnormality. Cellophane Worker: PSCB Transcribe Date/Time: Dec 25 2023 8:32A Dictated by : RYLAN BURCIAGA MD This examination was interpreted and the report reviewed and electronically signed by: RYLAN BURCIAGA MD on Dec 25 2023 8:34AM EST [facility] Radiology Study observation (narrative) [facility] XR Tibia and Fibula - left A P and LateralOrdered By: [facility] Provider on 12-25-2023 [facility] Ambulatory Visit Summaryon 0 12-23-2023 Ambulatory Visit Summary Ambulatory Visit Summary DOMINIQUE LLAMAS :1985 Visit Date:12/23/2023 Ambulatory Visit Instructions Your Diagnosis Bilateral club feet Pain of left calf Adult BMI 38.0-38.9 kg/sq m Your Care Team Attending Physician - Clint Ortiz DO Primary Care Physician - Clint Otriz DO This Is Your Medications List [facility] [place] [place] Prescription (permanent handicap placard) albuterol (Albuterol (Eqv-ProAir [...] PM EDT With: Clint Ortiz DO Where: [facility] [place] Normal [address] [place] [address].br\ You Need to Schedule the Following Appointments\.br\ Follow Up with Angel GIL, ROSETTA Hubbard PED When: Within 1 month\.br\ Comments:\.br\ 20 min slot\.br\ To go instructions:\.br \ I would clarify with disability what you might need for your reassessment\.br\ If we need a functional capacity evaluation for PT, let me know and I'll get that ordered\.br\ *When you see providers outside of [facility], please request that they send office visit notes every time you're seen there - this helps us take better care of you\.br\ Follow up 3 months\.br\ Where:\.br\ [address]\.br\ [place] [address]\.br\ [phone]\.br\ Medications\.br\ What How Much When Why Instructions\.br\ [...] Ankle swelling\.br\ Anxiety\.br\ Asthma\.br\ Bilateral club feet\.br\ Linden of foot\.br\ Depression\.br\ Fibromyalgia\.br\ History of foot [...] for choosing us for your care.\.br\ \.br\ [facility] US LE Venous Duplex Lefton 0 12-22-2023 US LE Venous Duplex Left Exam Date/Time: 12/21/2023 [...] M.D. Transcribed by: JOVANNY Technologist: AZIZA [facility] ED Clinical Summaryon 2023 ED Clinical Summary ED Clinical Summary [address] [address] ED Clinical Summary Person Information Name: DOMINIQUE LLAMAS Carolee/[facility] Age: 38 Years : 1985 Sex: Female Language: Kenyan PCP: Clint Ortiz DO Marital Status: Phone: [phone] Visit Id: Visit Reason: Leg pain-swelling; left [...] 12/21/2023 03:26:21 12/21/2023 03:26:21 12/21/2023 03:26:21 ADDRESS: [address] [place] [phone] PHYS DOC NOTES: MEDICAL INFORMATION: Prescriptions Given: [...] Clint Ortiz [address] [place], [place] [id number] In 2 days 12/23/2023 DIAGNOSIS: Pain of left calf [facility] ED Note-Physicianon 12-21-19 ED Note-Physician ED Note-Physician Basic Information Time Seen: Ho Morales DO 12/21/2023 03:00 Chief Complaint pt to ED with c/o L leg pain. no trauma or injury. no bruising, deformity, or swelling noted. PCP appt on Thu and Editor Book appt on Thu. History of Present Illness [...] of her knee. She has tried taking hkxt-zmu-xumcrbo Tylenol and Motrin with minimal relief. The [...] and Complexity of Problems Differential Diagnosis: [] [facility] Data External documents reviewed: N/A [...] Clint Ortiz In 2 days 12/23/2023 EDT [address] [place] [address] Additional Instructions: Patient Education Vascular Ultrasound Problem List/Past Medical History Ongoing ADHD Ankle swelling Anxiety Asthma Bilateral club feet Linden of foot Depression Fibromyalgia History of foot [...] neoplasm of (more content not included)... [facility] Comment on above: Result Comment: Elec tronically Signed By: Ho Morales DO\.br\Date and Time Signed: 07/08/24 03:17 EDT ED Patient Summaryon 024 ED Patient Summary ED Patient Summary [place] [id number] Patient Discharge Instructions Person Information Name: DOMINIQUE LLAMAS Age: 38 Years Arrival Date: 12/21/2023 02:58:03 Discharge Diagnosis: Pain of left calf Primary Care Physician: Clint Ortiz DO Provider Information Primary Provider: Ho Morales DO Advanced Office Engineer:None The exam and treatment you received in the Emergency Department were for an urgent problem and are not intended as complete care. It is important that you follow up with a doctor, nurse practitioner, or physician?s metal moulder's assistant for ongoing care. If your symptoms become worse or you do not improve as expected and you are unable to reach your usual health care provider, you should return to the Emergency Department. We are available 24 hours a day. DOMINIQUE LLAMAS has been given the following list of patient education materials, prescriptions and follow-up instructions: Follow-up Instructions: With: Address: When: Clint Esparzatorresjas [address] [place], [place] [id number] In 2 days 12/23/2023 In the event that this physician does not participate in your insurance network, please consult with your insurance company to find a nearby participating provider. Patient Education Materials: Vascular Ultrasound A MESSAGE TO ALL PATIENTS REGARDING OPIOIDS PRESCRIPTION OPIOIDS: WHAT YOU NEED TO KNOW Prescription opioids can be used to help relieve ntfptxxu-zi-ntxncw pain and are often prescribed following a [...] be struggling with addiction, tell your health memory care director and ask for guidance or call [employer]?S National Helpline at 0-852-335-HELP. v Source: Department of Health an (more content not included)... [facility] Medication Consenton 024 Medication Consent [id number] BD#1.00TIFF [facility] Ambulatory Visit Summaryon 0 10-16-2023 Ambulatory Visit Summary DOMINIQUE LLAMAS :1985 Visit Date:10/16/2023 Ambulatory Visit Instructions Your [...] Follow-Up Appointments Thursday 11:00 AM EDT Where: [facility] [place] [facility] Family Medicine Office/Clini c Noteon 10-16-2023 Family [...] Providers: Ortho - Dr. Carcamo - [facility] Deputy Fire Marshal - Dr. Lovell ENT - Dr. Oquendo - [facility] staff / Chief complaint confirmed with patient Screening: Colon Cancer screening: UPPER AND LOWER done in [place] with a UNCLEAR f/u recommended; this patient DOES have family history of colon cancer IN HER MOTHER - LIKELY done in 2020, in a surgery center connected to [facility] Breast cancer screening: START at age [...] Patient would like to increase anxiety medication Whjbor-am-wxw had dementia so he moved in and she is primary personal care aide No longer has nurse in the home [...] this time between taking care of her vhorsh-wf-yra and marital issues In (more content not included)... [facility] Comment on above: Result Comment: Elec tronically Signed By: Clint Ortiz DO\Date and Time Signed: 10/16/23 12:17 EDT CHEMISTRYOrdered By: Naomie diaz on 10-15-2023 HbA1c (Bld) [Mass fraction] 5.1 % Normal <=5.9% [facility] ChemAutoSS CHEMISTRYOrdered By: SYSTEM SYSTEM on 10-15-2023 TSH Qn 0.37 m[IU]/L Normal 0.34 - 5.60 mcIU/mL Remisol Chem Consent for Treatmenton Consent for Treatment [id number] ED#1.00TIFF [facility] PbiR4qja 10-15-2023 HbA1c (Bld) [Mass fraction] 5.1 % Normal <=5.9 [facility] Comment on above: Performed By: #### 7 [id number], [id number] #### [facility] [address] [place] [address] TSH With T4fr Reflexon 10-14 TSH Qn 0.37 m[IU]/L Normal 0.34-5.60 [facility] Comment on above: Performed By: #### 7 [id number], [id number] #### [facility] [address] [place] [address] Consultation Noteon 08-28-19 Consultation Note [id number] 35#1.00TIFF [facility] US Thyroidon 08-21-2023 US Thyroid Exam Date/Time: [...] thyroid nodules on ultrasound proposed by the [employer] (ACR) Ordering Provider: Nithya Oquendo FINAL REPORT Dictated: 08/21/2023 2:39 pm Alvin Jones MD Signed (Electronic Signature): 08/21/2023 2:39 pm Signed by: Alvin Jones MD Transcribed by: JOVANNY Technologist: D[place] [facility] Consent for Treatmenton Consent for Treatment [id number] 6D#1.00TIFF [facility] Physician Orderon 08-20-2023 Physician Order [id number] DD#1.00TIFF [facility] CNOVon 08-17-2023 CNOV Office Visit (LOORRM) ---- DOMINIQUE LLAMAS ([id number]) 1985 F Date Time Provider Department 08/17/23 3:45 PM EVELYNE CARCAMOORRManjinder During your visit today, we recorded the [...] , HBA1C , VITD25 in the last 54450 hours. X-ray deformity foot and ankle consistent [...] by mouth (more content not included)... Normal [facility] Office Visit (LOORR) ---- DOMINIQUE LLAMAS ([id number]) 1985 F Date Time Provider Department 08/17/23 3:00 PM CAST [employer] ZOE [facility] During your visit today, we recorded the [...] by ANTONIO MORENO on 08/17/23 [facility] CNOVon 08-03-2023 CNOV Office Visit (LOORRM) ---- DOMINIQUE LLAMAS ([id number]) 1985 F Date Time Provider Department 08/03/23 3:30 PM [facility] During your visit today, we recorded the [...] Status:Closed by ANTONIO MORENO on 08/03/23 [facility] ALL PROGESTERONEon 4 PROGESTERONE 23.8 ng/mL . [facility] Comment on above: Follicular phase 0.1 - 0.9 Luteal phase 1.8 - 23.9 Ovulation phase 0.1 - 12.0 First trimester 11.0 - 44.3 Second trimester 25.4 - 83.3 Third trimester 58.7 - 214.0 Postmenopausal 0.0 - 0.1 Performed at: - [facility] [id number] Physical Therapy Supervisor: Chapin Pulido PhD, Phone: [phone] [facility] Noteon 07-24-2023 Family [...] Cancer screening: UPPER AND LOWER done in [place] with a UNCLEAR f/u recommended; this patient DOES have family history of colon cancer IN HER MOTHER - LIKELY done in 2020, in a surgery center connected to [facility] Breast cancer screening: START at age 40; this patient DOES have a family history of breast cancer Pap smear: 2022 DEXA: age Labs: Jun 2023 List of Providers: Ortho - Dr. Carcamo - [facility] Deputy Fire Marshal - Dr. Lovell ENT - Dr. Oquendo - [facility] staff / Chief Complaint confirmed [...] just fibromyalgia? 06/07/23 - seen in the convenient care had symptoms for 6-7 days [...] Daily, # 30 tab(s), Refills(s) 5, Pharmacy: [facility]/pharmacy #[id number], 155, cm, 07/21/23 8:08:00 EST, [...] counseled o (more content not included)... [facility] Comment on above: Result Comment: Elec tronically Signed By: Clint Ortiz DO.ashley\Date and Time Signed: 07/24/23 18:47 EST Tohm 07-21-2023 CNOV Office Visit (LOORRM) ---- FARHADDOMINIQUE ([id number]) 1985 F Date Time Provider Department 07/21/23 3:30 PM CAST TECH ZOE CANO During [...] Status:Closed by ANTONIO MORENO on 07/21/23 [facility] Patient Educationon 07-21-19 Patient Education Mental [...] primary care provider or a mental health emergency care attendant. Your health care provider may use a [...] Behavioral management. You may work with a nutritional health coach who is specially trained to help people with ADHD manage and organize activities and function more effectively. Follow these instructions at home: Medicines ? Take qngh-roo-mzljxry and prescription medicines only as told by [...] that work best for you. ? Follow (more content not included)... [facility] Chrsit 07-20-2023 [facility] Telephone (INDIRAORRM) ---- DOMINIQUE LLAMAS ([id number]) 1985 F Date Time Provider Department 07/20/23 [...] calling: self Call patient at: on cell [phone] (home) Was an appointment scheduled: No Closing statement: Symptom Call: Thank you for calling [facility], your call is very important. A nurse [...] Never Reviewed Reason for Visit: Patient Request [[id number]] Prescriptions as of 07/20/2023 - albuterol HFA [...] Status:Closed by SHAHRAM LEE on 07/20/23 [facility] CNOVon 07-13-2023 CNOV Office Visit (LOORRM) ---- DOMINIQUE LLAMAS ([id number]) 1985 F Date Time Provider Department 07/13/23 [...] Status:Closed by ANTONIO MORENO on 07/13/23 [facility] CNOV Office Visit (LOORRM) ---- FARHADDOMINIQUE Matthew ([id number]) 1985 F Date Time Provider Department 07/13/23 2:15 PM EVELYNE CARCAMO During your visit today, we recorded the following information about you: Evelyne Carcamo DPM 07/13/2023 3:50 PM Signed Patient Visit for Dominique Dunbar Farhad 1985 38 year old female SUBJECTIVE: [...] , HBA1C , VITD25 in the last 78564 hours. X-ray deformity foot and ankle consistent [...] proceed wit (more content not included)... [facility] No Panel Informationon 07-13 IMPRESSION: Severe bilateral hindfoot valgus. Degenerative changes, as described. Findings suggesting chronic left Achilles tendinosis. Cellophane Worker: ALEXI Transcribe Date/Time: Jul 13 2023 2:49P Dictated by : HECTOR KRUSE MD This examination was interpreted and the report reviewed and electronically signed by: SELIN RIGGS MD on Jul 13 2023 5:42PM [facility] DIVISION OF RADIOLOGY Radiology Study observation (narrative) [facility] No Panel InformationOrdered By: [facility] Provider on 07-13-2023 [facility] XR ANKLE 3V AP/LAT/OBL BILon 07-13-2023 XR [...] described. Findings suggesting chronic left Achilles tendinosis. Cellophane Worker: PSCCayden Transcribe Date/Time: Jul 13 2023 2:49P Dictated by : HECTOR KRUSE MD This examination was interpreted and the report reviewed and electronically signed by: SELIN RIGGS MD on Jul 13 2023 5:42PM EST [id number] [facility] XR Ankle - bilateral AP and [...] chronic Achilles tendinosis. DIVISION OF RADIOLOGY Provider, [facility] [place] - 07/13/2023 * * *Final Report* * [...] described. Findings suggesting chronic left Achilles tendinosis. Cellophane Worker: [facility] Transcribe Date/Time: Jul 13 2023 2:49P Dictated by : HECTOR KRUSE MD This examination was interpreted and the report reviewed and electronically signed by: SELIN RIGGS MD on Jul 13 2023 5:42PM [facility] XR FOOT 3V AP/LAT/OBL BILon 07-13-2023 [...] described. Findings suggesting chronic left Achilles tendinosis. Cellophane Worker: [facility] Transcribe Date/Time: Jul 13 2023 2:49P Dictated by : HECTOR KRUSE MD This examination was interpreted and the report reviewed and electronically signed by: SELIN RIGGS MD on Jul 13 2023 5:42PM EST [id number] [facility] XR Foot - bilateral AP and [...] chronic Achilles tendinosis. DIVISION OF RADIOLOGY Provider, [facility] [place] - 07/13/2023 * * *Final Report* * [...] described. Findings suggesting chronic left Achilles tendinosis. Cellophane Worker: ALEXI Transcribe Date/Time: Jul 13 2023 2:49P Dictated by : HECTOR KRUSE MD This examination was interpreted and the report reviewed and electronically signed by: SELIN RIGGS MD on Jul 13 2023 5:42PM [facility] Physician Referralon 024 Physician Referral [id number] 565#1.00TIFF [facility] Family Medicine Office/Clini c Noteon 06-27-2023 Family Medicine Office/Clinic Note Chief Complaint Ankle swelling HPI Staff Patient here to F/U on Swollen ankle. X Rays done on 06/07/23 In [facility] on 06/07/23 Symptoms started on 31 of May after doing a lot of house cleaning. has tried elevation and heat at night and tylenol. States she contacted Ortho [place], and stated that they only [...] With When Contact Information Clint Ortiz DO, FAM, PED Within 1 month [address] [place] [address] [phone] Additional Instructions: 1-2 month f/u - 20 min slot Patient Education Heat Therapy, Eodo-hm-Ogtf Problem List/Past Medical History Ongoing ADHD Ankle swelling Anxiety Asthma Bilateral club feet Linden of foot Fibromyalgia History of foot surgery History of migraine History of posttraumatic stress disorder (PTSD) Hypokalemia Hypothyroidism Insulin resistance Mild recurrent major depression PCOS (polycystic ovarian syndrome) Smoker Thyroid nodule Historical No qualifying data Procedure/Surgi (more content not included)... [facility] Comment on above: Result Comment: [...] mGy = . DAP = . Normal [facility] CHEMISTRYOrdered By: SYSTEM SYSTEM on 06-25-2023 Free T4 [Mass/Vol] 1.19 ng/dL Normal 0.58 - 1.64 ng/dL Remisol Chem TSH Qn 0.14 m[IU]/L Low 0.34 - 5.60 mcIU/mL Remisol Chem Consent for Treatmenton 06-15 Consent for Treatment [id number] Normal [facility] Free T4on 06-25-2023 Free T4 [Mass/Vol] 1.19 ng/dL Normal 0.58-1.64 [facility] Comment on above: Order Comment: Free T4 added by Discern Rule due to a TSH result of <0.34 or >5.60. Performed By: #### 2 [id number] ####[facility] [address] [place] [address] Patient Educationon 06-25-19 24 Patient Education Physical [...] provider. Document Revised: 04/03/2021 Document Reviewed: 04/03/2021 [employer] Patient Education ? 2022 [employer] Normal [facility] TSH With T4fr Reflexon 06-25 TSH Qn 0.14 m[IU]/L Low 0.34-5.60 [facility] Comment on above: Performed By: #### 2 [id number], [id number] ####[facility] [address] [place] [address] Ambulatory Visit Summaryon 1 08-08-2022 Ambulatory Visit [...] AM EST With: Clint Ortiz DO Where: [facility] [place] Normal [address] [place] [address]-\.br\ Medications\.br\ What How Much When Why Instructions\.br\ [...] currently receiving treatment for.\.br\ ADHD\.br\ Anxiety\.br\ Asthma\.br\ [place] of foot\.br\ Fibromyalgia\.br\ History of migraine\.br\ History [...] for choosing us for your care.\.br\ \.br\ [facility] XR Ankle 3+ Views Lefton XR [...] mGy = . DAP = . Normal [facility] CHEMISTRYOrdered By: SYSTEM SYSTEM on 04-20-2023 Anion gap [Moles/Vol] 11 mmol/L Normal 6 - 16 mEq/L [facility] Remisol Calcium [Mass/Vol] 9.5 mg/dL Normal 8.9 - 11.1 mg/dL [facility] Remisol Chloride [Moles/Vol] 105 mmol/L Normal 101 - 111 mmol/ L [facility] Remisol CO2 [Moles/Vol] 26 mmol/L Normal 21 - 31 mmol/L [facility] Remisol Creatinine [Mass/Vol] 0.9 mg/dL Normal 0.5 - 1.3 mg/dL [facility] Remisol Free T4 [Mass/Vol] 1.27 ng/dL Normal 0.58 - 1.64 ng/dL [facility] Remisol GFR/1.73 sq M.predicted among non-blacks MDRD (S/P/Bld) [Vol rate/Area] 84 mL/min/1.73 m2 Normal >=59mL/min/1.73 m2 [facility] Comment on above: Interpretive Data: [...] rate/Area] 97 mL/min/1.73 m2 Normal >=59mL/min/1.73 m2 [facility] Chem S Globulin (S) [Mass/Vol] 2.9 g/dL Normal 1.4 - 4.0 gm/dL [facility] Remisol Glucose [Mass/Vol] 91 mg/dL Normal 55 - 199 mg/dL [facility] Remisol Potassium [Moles/Vol] 3.4 mmol/L Low 3.5 - 5.3 mmol/L [facility] Remisol Protein [Mass/Vol] 7.3 g/dL Normal 6.0 - 7.8 gm/dL [facility] Remisol Sodium [Moles/Vol] 138 mmol/L Normal 135 - 145 mmol/L [facility] Remisol Triglyceride [Mass/Vol] 127 mg/dL Normal <=149mg/dL [facility] Remisol TSH Qn 0.03 m[IU]/L Low 0.34 - 5.60 mcIU/mL [facility] Remisol Urea nitrogen [Mass/Vol] 7 mg/dL Normal 5 - 21 mg/dL [facility] Remisol Urea nitrogen/Creatinine [Mass ratio] 9 mg/mg Low 10 - 20 [facility] Remisol PROGESTERONEon 10-17-2022 Progesterone 30.4 ng/mL Normal [facility] Comment on above: Result Comment: Foll icular phase 0.1 - 0.9 Luteal phase 1.8 - 23.9 Ovulation phase 0.1 - 12.0 First trimester 11.0 - 44.3 Second trimester 25.4 - 83.3 Third trimester 58.7 - 214.0 Postmenopausal 0.0 - 0.1 Performed By: #### P DAWNA #### [facility] [address] [place] [address] Dr. Cecy Hernandez PROGESTERONEon 09-16-2022 Progesterone 24.8 ng/mL Normal [facility] Comment on above: Result Comment: Foll icular phase 0.1 - 0.9 Luteal phase 1.8 - 23.9 Ovulation phase 0.1 - 12.0 First trimester 11.0 - 44.3 Second trimester 25.4 - 83.3 Third trimester 58.7 - 214.0 Postmenopausal 0.0 - 0.1 Performed By: #### P DAWNA #### [facility] [address] [address] [address] Cecy Hernandez PAP ACOG PANEL 2: 30 to 65on 09-03-2022 . . Normal [facility] Comment on above: Result Comment: Perf ormed at: WB Performed By: #### P ROGES #### [facility] [address] [address] [address] Cecy Hernandez Age Gdln ACOG Testing 30-65 Normal [facility] Comment on above: Performed By: #### P ROGES #### [facility] [address] [address] [address] Cecy Hernandez DIAGNOSIS: Comment Normal [facility] Comment on above: Result Comment: NEGA TIVE FOR INTRAEPITHELIAL LESION OR MALIGNANCY. Performed at: WB Performed By: #### P ROGES #### [facility] [address] [address] [address] Cecy Hernandez HPV Aptima Negative Normal Negative [facility] Comment on above: Result Comment: This nucleic acid amplification test detects fourteen high-risk HPV types (16,18,31,33,35,39,45,51,52,56,58,59,66,68) without differentiation. Performed at: =G Performed By: #### P ROGES #### [facility] [address] [address] [address] Cecy Hernandez HPV Genotype Reflex Comment Normal [facility] Comment on above: Result Comment: Crit eria not met, HPV Genotype not performed. Performed at: WB Performed By: #### P ROGES #### [facility] [address] [address] [address] Cecy Hernandez Methodology: Comment Normal [facility] Comment on above: Result Comment: This liquid based ThinPrep(R) pap test was screened with the use of an image guided system. Performed at: WB Performed By: #### P ROGES #### [facility] [address] [address] [address] Cecy Hernandez Note: Comment Normal [facility] Comment on above: Result Comment: The [...] WB Performed By: #### P ROGES #### [facility] [address] [address] [address] Cecy Hernandez Performed by: Comment Normal [facility] Comment on above: Result Comment: Ludivina Maldonado, Graduate Student Instructor Performed at: WB Performed By: #### P DAWNA #### [facility] [address] [address] [address] Cecy Hernandez Specimen adequacy: Comment Normal [facility] Comment on above: Result Comment: Sati sfactory for evaluation. Endocervical and/or squamous metaplastic cells (endocervical component) are present. Areas of partially obscuring blood are present. Performed at: WB Performed By: #### P DAWNA #### [facility] [address] [place] [address] Dr. Cecy Hernandez Cytology Cervical or vaginal smear or scraping studyOrdered By: Ewelina Marie on 08-26-2022 [facility] PROGESTERONEon 07-16-2022 Progesterone 15.0 ng/mL Normal [facility] Comment on above: Result Comment: Foll icular phase 0.1 - 0.9 Luteal phase 1.8 - 23.9 Ovulation phase 0.1 - 12.0 First trimester 11.0 - 44.3 Second trimester 25.4 - 83.3 Third trimester 58.7 - 214.0 Postmenopausal 0.0 - 0.1 Performed By: #### P DAWNA #### [facility] [address] [place] [address] Dr. Cecy Hernandez CBC AUTO DIFFon 06-27-2022 BASO # 0.0 103/ul Normal 0.0-0.1 [facility] Comment on above: Performed By: #### P DAWNA #### [facility] [address] [place] [address] Dr. Cecy Hernandez Basophils/100 WBC (Bld) 0.5 % Normal 0.2-2.0 [facility] Comment on above: Performed By: #### P DAWNA #### [facility] [address] [place] [address] Dr. Cecy Hernandez EO # 0.3 103/ul Normal 0.0-0.7 [facility] Comment on above: Performed By: #### P ROGES #### [facility] [address] [place] [address] Dr. Cecy Hernandez Eosinophils/100 WBC (Bld) 3.2 % Normal 0.9-7.0 [facility] Comment on above: Performed By: #### P ROGES #### [facility] [address] [place] [address] Dr. Cecy Hernandez Erythrocyte distribution width (RBC) [Ratio] 12.4 % Normal 11.0-15.0 [facility] Comment on above: Performed By: #### P ROGES #### [facility] [address] [place] [address] Dr. Cecy Hernandez Hematocrit (Bld) [Volume fraction] 40.9 % Normal 36.0-48.0 [facility] Comment on above: Performed By: #### P DAWNA #### [facility] [address] [place] [address] Dr. Cecy Hernandez Hemoglobin (Bld) [Mass/Vol] 14.1 g/dL Normal 12.0-16.0 [facility] Comment on above: Performed By: #### P ROGES #### [facility] [address] [place] [address] Dr. Cecy Hernandez IG # 0.03 10e3/ul Normal 0.00-0.03 [facility] Comment on above: Performed By: #### P ROGES #### [facility] [address] [place] [address] Dr. Cecy Hernandez IG % 0.3 % Normal 0.0-0.5 [facility] Comment on above: Performed By: #### P ROGES #### [facility] [address] [place] [address] Dr. Cecy Hernandez LYMPH # 3.6 103/ul Normal 1.2-3.8 [facility] Comment on above: Performed By: #### P ROGES #### [facility] [address] [place] [address] Dr. Cecy Hernandez Lymphocytes/100 WBC (Bld) 41.4 % Normal 20.5-60.0 [facility] Comment on above: Performed By: #### P ROGES #### [facility] [address] [place] [address] Dr. Cecy Hernandez MANUAL DIFF REQ NO Normal [facility] Comment on above: Performed By: #### P ROGES #### [facility] [address] [place] [address] Dr. Cecy Hernandez MCH (RBC) [Entitic mass] 29.0 pg Normal 26.7-34.0 [facility] Comment on above: Performed By: #### P ROGES #### [facility] [address] [place] [address] Dr. Cecy Hernandez MCHC (RBC) [Mass/Vol] 34.5 g/dL Normal 29.9-35.2 [facility] Comment on above: Performed By: #### P ROGES #### [facility] [address] [place] [address] Dr. Cecy Hernandez MCV (RBC) [Entitic vol] 84.2 fL Normal 81.0-99.0 [facility] Comment on above: Performed By: #### P ROGES #### [facility] [address] [place] [address] Dr. Cecy Hernandez MONO # 0.5 103/ul Normal 0.3-0.8 [facility] Comment on above: Performed By: #### P ROGES #### [facility] [address] [place] [address] Dr. Cecy Hernandez Monocytes/100 WBC (Bld) 5.9 % Normal 1.7-12.0 [facility] Comment on above: Performed By: #### P ROGES #### [facility] [address] [place] [address] Dr. Cecy Hernandez NEUT # 4.2 103/ul Normal 1.4-6.5 [facility] Comment on above: Performed By: #### P ROGES #### [facility] [address] [place] [address] Dr. Cecy Hernandez Neutrophils/100 WBC (Bld) 48.7 % Normal 43.0-75.0 [facility] Comment on above: Performed By: #### P SHERIES #### [facility] [address] [place] [address] Dr. Cecy Hernandez Platelet mean volume (Bld) [Entitic vol] 10.0 fL Normal 9.5-13.5 [facility] Comment on above: Performed By: #### P ROGES #### [facility] [address] [place] [address] Dr. Cecy Hernandez PLT 283 103/ul Normal 150-450 [facility] Comment on above: Performed By: #### P ROGES #### [facility] [address] [place] [address] Dr. Cecy Hernandez RBC 4.86 106/ul Normal 4.20-5.40 [facility] Comment on above: Performed By: #### P DAWNA #### [facility] [address] [place] [address] Dr. Cecy Hernandez WBC 8.6 103/ul Normal 4.0-11.0 [facility] Comment on above: Performed By: #### P SHERIES #### [facility] [address] [place] [address] Dr. Cecy Hernandez ER URINE PROFILEon 3 Bilirubin Ql (U) Negative Normal NEGATIVE [facility] Comment on above: Performed By: #### P DAWNA #### [facility] [address] [place] [address] Dr. Cecy Hernandez Clarity (U) CLEAR Normal CLEAR [facility] Comment on above: Performed By: #### P ROGES #### [facility] [address] [place] [address] Dr. Cecy Hernandez Color (U) LT. YELLOW Normal YELLOW [facility] Comment on above: Performed By: #### P SHERIES #### [facility] [address] [place] [address] Dr. Cecy Hernandez ERUAHD A micrscopic examination will be performed if indicated. Normal [facility] Comment on above: Performed By: #### P DAWNA #### [facility] [address] [place] [address] Dr. Cecy Hernandez Glucose Ql (U) Negative Normal NEGATIVE [facility] Comment on above: Performed By: #### P ROGES #### [facility] [address] [place] [address] Dr. Cecy Hernandez Hemoglobin Ql (U) TRACE-INTACT Abnormal NEGATIVE [facility] Comment on above: Performed By: #### P ROGES #### [facility] [address] [place] [address] Dr. Cecy Hernandez Ketones Ql (U) Negative Normal NEGATIVE [facility] Comment on above: Performed By: #### P ROGES #### [facility] [address] [place] [address] Dr. Cecy Hernandez LEUKOCYTES Negative Normal NEGATIVE [facility] Comment on above: Performed By: #### P ROGES #### [facility] [address] [place] [address] Dr. Cecy Hernandez Nitrite Ql (U) Negative Normal NEGATIVE [facility] Comment on above: Performed By: #### P ROGES #### [facility] [address] [place] [address] Dr. Cecy Hernandez pH (U) 7.0 [pH] Normal 5-9 [facility] Comment on above: Performed By: #### P ROGES #### [facility] [address] [place] [address] Dr. Cecy Hernandez SPEC GRAVITY 1.010 Normal 1.005-<=1.025 [facility] Comment on above: Performed By: #### P ROGES #### [facility] [address] [place] [address] Dr. Cecy Hernandez UA PROTEIN Negative Normal NEGATIVE/ TRACE [facility] Comment on above: Performed By: #### P ROGES #### [facility] [address] [place] [address] Dr. Cecy Hernandez UR MICRO IND INDICATED Normal [facility] Comment on above: Performed By: #### P ROGES #### [facility] [address] [place] [address] Dr. Cecy Hernandez Urobilinogen Qn (U) 0.2 {Jone'U}/dL Normal 0.2 - 1. 0 [facility] Comment on above: Performed By: #### P ROGES #### [facility] [address] [place] [address] Dr. Cecy Hernandez PREG HCG QUALon 06-27-2022 , QUAL Negative Normal NEGATIVE [facility] Comment on above: Performed By: #### P REG #### [facility] [address] [place] [address] Dr. Cecy Hernandez PROF CHEM 8 (BAS METB)on Anion gap [Moles/Vol] 12.9 mmol/L Normal [facility] Comment on above: Performed By: #### B MP #### [facility] [address] [place] [address] Dr. Cecy Hernandez Calcium [Mass/Vol] 9.0 mg/dL Normal 8.5-10.1 [facility] Comment on above: Performed By: #### B MP #### [facility] [address] [place] [address] Dr. Cecy Hernandez Chloride [Moles/Vol] 101 mmol/L Normal 98-107 [facility] Comment on above: Performed By: #### B MP #### [facility] [address] [place] [address] Dr. Cecy Hernandez CO2 [Moles/Vol] 26.7 mmol/L Normal 21.0-32.0 [facility] Comment on above: Performed By: #### B MP #### [facility] [address] [place] [address] Dr. Cecy Hernandez Creatinine [Mass/Vol] 0.91 mg/dL Normal 0.55-1.02 [facility] Comment on above: Performed By: #### B MP #### [facility] [address] [place] [address] Dr. Cecy Hernandez EGFR-AF FINNISH >60 Normal >=60 [facility] Comment on above: Performed By: #### B MP #### [facility] [address] [place] [address] Dr. Cecy Hernandez EGFR-NON AF FINNISH >60 Normal >=60 [facility] Comment on above: Performed By: #### B MP #### [facility] [address] [address] [address] Cecy Hernandez Glucose [Mass/Vol] 86 mg/dL Normal 74-106 [facility] Comment on above: Performed By: #### B MP #### [facility] [address] [place] [address] Dr. Cecy Hernandez Potassium [Moles/Vol] 3.6 mmol/L Normal 3.5-5.1 [facility] Comment on above: Performed By: #### B MP #### [facility] [address] [place] [address] Dr. Cecy Hernandez Sodium [Moles/Vol] 137 mmol/L Normal 136-145 [facility] Comment on above: Performed By: #### B MP #### [facility] [address] [place] [address] Dr. Cecy Hernandez Urea nitrogen [Mass/Vol] 14.0 mg/dL Normal 7.0-18.0 [facility] Comment on above: Performed By: #### B MP #### [facility] [address] [place] [address] Dr. Cecy Hernandez Urea nitrogen/Creatinine [Mass ratio] 15.4 mg/mg Normal [facility] Comment on above: Performed By: #### B MP #### [facility] [address] [place] [address] Dr. Cecy Hernandez URINE MICROSCOPIC ONLYon BACTERIA NONE SEEN Normal NONE SEEN [facility] Comment on above: Performed By: #### P ROGES #### [facility] [address] [place] [address] Dr. Cecy Hernandez Bacteria identified Cx Nom (U) NOT INDICATED Normal [facility] Comment on above: Performed By: #### P ROGES #### [facility] [address] [place] [address] Dr. Cecy Hernandez CAST NONE SEEN Normal NONE SEEN [facility] Comment on above: Performed By: #### P ROGES #### [facility] [address] [address] [address] Cecy Hernandez Crystals LM Nom (Urine sed) NONE SEEN Normal NONE SEEN [facility] Comment on above: Performed By: #### P ROGES #### [facility] [address] [place] [address] Dr. Cecy Hernandez Epithelial cells LM Ql (Urine sed) FEW Abnormal NONE SEEN /RARE [facility] Comment on above: Performed By: #### P ROGES #### [facility] [address] [place] [address] Dr. Cecy Hernandez MUCOUS NONE SEEN Normal NONE SEEN [facility] Comment on above: Performed By: #### P ROGES #### [facility] [address] [place] [address] Dr. Cecy Hernandez RBC 0-2 Normal 0-2 [facility] Comment on above: Performed By: #### P ROGES #### [facility] [address] [place] [address] Dr. Cecy Hernandez WBC 2-5 Abnormal NONE SEEN [facility] Comment on above: Performed By: #### P ROGES #### [facility] [address] [place] [address] Dr. Cecy Hernandez US PELVIS TRANSVAGon 023 [...] by: KEYANNA SHARPE Date: 2022-06-27 19:44 Normal [facility] FREE T3on 05-19-2022 FREE T3 2.17 pg/mlL Critically low 2.18-3.98 [facility] Comment on above: Performed By: #### B MP, TSH, FT3 #### [facility] [address] [place] [address] Dr. Cecy Hernandez PROF CHEM 8 (BAS METB)on Anion gap [Moles/Vol] 11.5 mmol/L Normal [facility] Comment on above: Performed By: #### B MP, TSH, FT3 #### [facility] [address] [place] [address] Dr. Cecy Hernandez Calcium [Mass/Vol] 8.7 mg/dL Normal 8.5-10.1 [facility] Comment on above: Performed By: #### B MP, TSH, FT3 #### [facility] [address] [place] [address] Dr. Cecy Hernandez Chloride [Moles/Vol] 102 mmol/L Normal 98-107 [facility] Comment on above: Performed By: #### B MP, TSH, FT3 #### [facility] [address] [place] [address] Dr. Cecy Hernandez CO2 [Moles/Vol] 26.3 mmol/L Normal 21.0-32.0 [facility] Comment on above: Performed By: #### B MP, TSH, FT3 #### [facility] [address] [place] [address] Dr. Cecy Hernandez Creatinine [Mass/Vol] 0.82 mg/dL Normal 0.55-1.02 [facility] Comment on above: Performed By: #### B MP, TSH, FT3 #### [facility] [address] [place] [address] Dr. Cecy Hernandez EGFR-AF FINNISH >60 Normal >=60 [facility] Comment on above: Performed By: #### B MP, TSH, FT3 #### [facility] [address] [place] [address] Dr. Cecy Hernandez EGFR-NON AF FINNISH >60 Normal >=60 [facility] Comment on above: Performed By: #### B MP, TSH, FT3 #### [facility] [address] [address] [address] Cecy Hernandze Glucose [Mass/Vol] 106 mg/dL Normal 74-106 [facility] Comment on above: Performed By: #### B MP, TSH, FT3 #### [facility] [address] [address] [address] Cecy Hernandez Potassium [Moles/Vol] 3.8 mmol/L Normal 3.5-5.1 [facility] Comment on above: Performed By: #### B MP, TSH, FT3 #### [facility] [address] [place] [address] Dr. Cecy Hernandez Sodium [Moles/Vol] 136 mmol/L Normal 136-145 [facility] Comment on above: Performed By: #### B MP, TSH, FT3 #### [facility] [address] [place] [address] Dr. Cecy Hernandez Urea nitrogen [Mass/Vol] 8.0 mg/dL Normal 7.0-18.0 [facility] Comment on above: Performed By: #### B MP, TSH, FT3 #### [facility] [address] [place] [address] Dr. Cecy Hernandez Urea nitrogen/Creatinine [Mass ratio] 9.8 mg/mg Normal [facility] Comment on above: Performed By: #### B MP, TSH, FT3 #### [facility] [address] [place] [address] Dr. Cecy Hernandez TSHon 05-19-2022 TSH 0.415 uIU/mL Normal 0.358-3.740 [facility] Comment on above: Performed By: #### B MP, TSH, FT3 #### [facility] [address] [place] [address] Dr. Cecy Hernandez PROGESTERONEon 05-13-2022 Progesterone 15.9 ng/mL Normal [facility] Comment on above: Result Comment: Foll icular phase 0.1 - 0.9 Luteal phase 1.8 - 23.9 Ovulation phase 0.1 - 12.0 First trimester 11.0 - 44.3 Second trimester 25.4 - 83.3 Third trimester 58.7 - 214.0 Postmenopausal 0.0 - 0.1 Performed By: #### P ROGES #### [facility] [address] [place] [address] Dr. Cecy Hernandez PROGESTERONEon 04-12-2022 Progesterone 9.8 ng/mL Normal [facility] Comment on above: Result Comment: Foll icular phase 0.1 - 0.9 Luteal phase 1.8 - 23.9 Ovulation phase 0.1 - 12.0 First trimester 11.0 - 44.3 Second trimester 25.4 - 83.3 Third trimester 58.7 - 214.0 Postmenopausal 0.0 - 0.1 Performed By: #### P DAWNA #### [facility] [address] [place] [address] Dr. Cecy Hernandez PROGESTERONEon 03-12-2022 Progesterone 13.8 ng/mL Normal [facility] Comment on above: Result Comment: Foll icular phase 0.1 - 0.9 Luteal phase 1.8 - 23.9 Ovulation phase 0.1 - 12.0 First trimester 11.0 - 44.3 Second trimester 25.4 - 83.3 Third trimester 58.7 - 214.0 Postmenopausal 0.0 - 0.1 Performed By: #### P DAWNA #### [facility] [address] [place] [address] Dr. Cecy Hernandez PROGESTERONEon 02-12-2022 Progesterone 12.7 ng/mL Normal [facility] Comment on above: Result Comment: Foll icular phase 0.1 - 0.9 Luteal phase 1.8 - 23.9 Ovulation phase 0.1 - 12.0 First trimester 11.0 - 44.3 Second trimester 25.4 - 83.3 Third trimester 58.7 - 214.0 Postmenopausal 0.0 - 0.1 Performed By: #### P ROGES #### [facility] [address] [place] [address] Dr. Cecy Hernandez PROGESTERONEon 01-11-2022 Progesterone 19.2 ng/mL Normal [facility] Comment on above: Result Comment: Foll icular phase 0.1 - 0.9 Luteal phase 1.8 - 23.9 Ovulation phase 0.1 - 12.0 First trimester 11.0 - 44.3 Second trimester 25.4 - 83.3 Third trimester 58.7 - 214.0 Postmenopausal 0.0 - 0.1 Performed By: #### P DAWNA #### [facility] [address] [place] [address] Dr. Cecy Hernandez COVID Quick Testingon 2021 Result Positive [employer] [facility] Functional Neuromodulation Other Quick Fluon 11-15-2021 FLUAV Ab CF (S) [Titer] Negative [facility] Other FLUBV Ab CF (S) [Titer] Negative [employer] [facility] Functional Neuromodulation Other FREE T3on 11-14-2021 FREE T3 2.17 pg/mlL Critically low 2.18-3.98 [facility] Comment on above: Performed By: #### P DAWNA #### [facility] [address] [place] [address] Dr. Cecy Hernandez TSHon 11-14-2021 TSH 0.265 uIU/mL Critically low 0.358-3.740 [facility] Comment on above: Performed By: #### P DAWNA #### [facility] [address] [place] [address] Dr. Cecy Hernandez TSH RANGE SEE BELOW Normal [facility] Comment on above: Result Comment: <0.3 4 UIU/ml HYPERTHYROID 0.34-5.60 UIU/ml EUTHYROID >5.60 UIU/ml HYPOTHYROID Performed By: #### P DAWNA #### [facility] [address] [place] [address] Dr. Cecy Hernandez PROGESTERONEon 10-26-2021 Progesterone 0.1 ng/mL Normal [facility] Comment on above: Result Comment: Foll icular phase 0.1 - 0.9 Luteal phase 1.8 - 23.9 Ovulation phase 0.1 - 12.0 First trimester 11.0 - 44.3 Second trimester 25.4 - 83.3 Third trimester 58.7 - 214.0 Postmenopausal 0.0 - 0.1 Performed By: #### P DAWNA #### [facility] [address] [place] [address] Dr. Cecy Hernandez XR shoulder LT min 2V*on XR shoulder LT min 2V* [facility] [place] [address] [place] [address] XRay Report Signed Patient: Dominique Crenshaw MR#: [id number] 4 : 1985 Acct:[id number] Age/Sex: 36 / F ADM Date: 08/15/21 Loc: [facility] Room: Type: [facility] Attending Dr: Petros Lion MD Ordering Provider: [...] Giovani Nelson M.D.08/15/2021 1:32 PM Dictation Location: [place] [address] Transcribed By: [facility] 08/15/21 1332 Dictated By: Giovani Nelson DO 08/15/21 1331 Signed By: 08/15/21 1332 Normal [facility] Vital Signs Date Time Vital Sign Value Performing Clinician Facility 07-28-2024 15:050 Body height 152.4 cm Jayce Trevino MD Work Phone: [facility] 07-28-2024 15: Body mass index (BMI) [Ratio] 39.49 kg/m2 Jayce Trevino MD Work Phone: [facility] 07-28-2024 15:050 Body weight 91.72 kg Jayce Trevino MD Work Phone: [facility] 07-28-2024 15:13-0500 Diastolic blood pressure 80 mm[Hg] Jayce Trevino MD Work Phone: [facility] 07-28-2024 15:13-0500 Heart rate 94 /min Jayce Trevino MD Work Phone: [facility] 07-28-2024 15:13-0500 Systolic blood pressure 110 mm[Hg] Jayce Trevino MD Work Phone: [facility] 07-19-2024 12:05-0500 Diastolic blood pressure 88 mm[Hg] [address] 07-19-2024 12:05-0500 Heart rate 63 /min [address] 07-19-2024 12:05-0500 Respiratory rate 20 /min [address] 07-19-2024 12:05-0500 Systolic blood pressure 130 mm[Hg] [address] 07-19-2024 11:49-0500 Body height 152.[address] 07-19-2024 11:49-0500 Body mass index (BMI) [Ratio] 39.61 kg/m2 [address] 07-19-2024 11:49-0500 Body weight [address] 07-19-2024 11:49-0500 SaO2% (BldA) [Mass fraction] 100 % [address] 06-23-2024 09:00-0500 Diastolic blood pressure 66 mm[Hg] LIZZIE MEDINA [facility] 06-23-2024 09:00-0500 Heart rate 83 /min LIZZIE MEDINA [facility] 06-23-2024 09:00-0500 SaO2% (BldA) [Mass fraction] 97 % LIZZIE MEDINA [facility] 06-23-2024 09:00-0500 Systolic blood pressure 122 mm[Hg] LIZZIE MEDINA [facility] [place] 05-26-2024 14:35-0500 Blood Pressure Location Alonso Kirnus [facility] 05-26-2024 14:35-0500 Diastolic blood pressure 82 mm[Hg] Alonso Kirnus [facility] 05-26-2024 14:35-0500 Heart rate 90 /min Alonso Kirnus [facility] 05-26-2024 14:35-0500 Respiratory rate 16 /min Alonso Kirnus [facility] 05-26-2024 14:35-0500 SaO2% (BldA) [Mass fraction] 98 % Alonso Kirnus [facility] 05-26-2024 14:35-0500 Systolic blood pressure 124 mm[Hg] Alonso Kirnus [facility] 04-11-2024 13:09-0400 Diastolic blood pressure 98 mm[Hg] Alonso Kirnus [facility] 04-11-2024 13:09-0400 Heart rate 99 /min Alonso Kirnus [facility] 04-11-2024 13:09-0400 Respiratory rate 16 /min Alonso Kirnus [facility] 04-11-2024 13:09-0400 SaO2% (BldA) [Mass fraction] 98 % Alonso Kirnus [facility] 04-11-2024 13:09-0400 Systolic blood pressure 138 mm[Hg] Alonso Kirnus [facility] 03-22-2024 14:50-0400 Blood Pressure Location LIZZIE MEDINA [facility] 03-22-2024 14:50-0400 Diastolic blood pressure 67 mm[Hg] LIZZIE MEDINA [facility] 03-22-2024 14:50-0400 Heart rate 105 /min LIZZIE MEDINA [facility] 03-22-2024 14:50-0400 Respiratory rate 15 /min LIZZIE MEDINA [facility] 03-22-2024 14:50-0400 SaO2% (BldA) [Mass fraction] 98 % LIZZIE MEDINA [facility] 03-22-2024 14:50-0400 Systolic blood pressure 122 mm[Hg] LIZZIE MEDINA [facility] 03-04-2024 11:56-0400 Blood Pressure Location [facility] 03-04-2024 11:56-0400 Diastolic blood pressure 86 mm[Hg] [facility] 03-04-2024 11:56-0400 Heart rate 100 /min Ellerslie Angel [facility] 03-04-2024 11:56-0400 SaO2% (BldA) [Mass fraction] 96 % [facility] 03-04-2024 11:56-0400 Systolic blood pressure 120 mm[Hg] [facility] 02-23-2024 11:03-0400 Blood Pressure Location [facility] 02-23-2024 11:03-0400 Diastolic blood pressure 80 mm[Hg] [facility] 02-23-2024 11:03-0400 Heart rate 80 /min Clint Sherwood [facility] 02-23-2024 11:03-0400 Respiratory rate 16 /min Clint Sherwood [facility] 02-23-2024 11:03-0400 SaO2% (BldA) [Mass fraction] 98 % [facility] 02-23-2024 11:03-0400 Systolic blood pressure 118 mm[Hg] Clint Angel [facility] 02-22-2024 14:04-0400 Body mass index (BMI) [Ratio] 40.19 kg/m2 [employer] Work Phone: [facility] 02-22-2024 14:04-0400 Body weight 93.35 kg [employer] Work Phone: [facility] 02-22-2024 14:04-0400 Diastolic blood pressure 70 mm[Hg] [employer] Work Phone: [facility] 02-22-2024 14:04-0400 Systolic blood pressure 130 mm[Hg] [employer] Work Phone: [facility] 01-28-2024 15:44-0400 Blood Pressure Location Ellerslie Angel [facility] 01-28-2024 15:44-0400 Diastolic blood pressure 100 mm[Hg] Ellerslie Angel [facility] 01-28-2024 15:44-0400 Heart rate 87 /min Clint Sherwood [facility] 01-28-2024 15:44-0400 SaO2% (BldA) [Mass fraction] 98 % [facility] 01-28-2024 15:44-0400 Systolic blood pressure 132 mm[Hg] Psychiatricjas [facility] 12-23-2023 14:07-0400 Blood Pressure Location [facility] 12-23-2023 14:07-0400 Diastolic blood pressure 90 mm[Hg] [facility] 12-23-2023 14:07-0400 Heart rate 95 /min Ellerslie Angel [facility] 12-23-2023 14:07-0400 SaO2% (BldA) [Mass fraction] 98 % [facility] 12-23-2023 14:07-0400 Systolic blood pressure 134 mm[Hg] [facility] 12-21-2023 03:00-0400 Body temperature 97.88 [degF] Ho Carmen [facility] 12-21-2023 03:00-0400 Diastolic blood pressure 99 mm[Hg] Ho Carmen [facility] 12-21-2023 03:00-0400 Heart rate 96 /min Ho Carmen [facility] 12-21-2023 03:00-0400 Respiratory rate 16 /min Ho Carmen [facility] 12-21-2023 03:00-0400 SaO2% (BldA) [Mass fraction] 100 % Ho Carmen [facility] 12-21-2023 03:00-0400 Systolic blood pressure 148 mm[Hg] Ho Carmen [facility] 10-16-2023 10:53-0400 Blood Pressure Location [facility] 10-16-2023 10:53-0400 Diastolic blood pressure 90 mm[Hg] [facility] 10-16-2023 10:53-0400 Heart rate 102 /min [facility] 10-16-2023 10:53-0400 SaO2% (BldA) [Mass fraction] 98 % [facility] 10-16-2023 10:53-0400 Systolic blood pressure 128 mm[Hg] [facility] 06-25-2023 15:02-0500 Blood Pressure Location [facility] 06-25-2023 15:02-0500 Diastolic blood pressure 90 mm[Hg] [facility] 06-25-2023 15:02-0500 Heart rate 106 /min Psychiatric[facility] 06-25-2023 15:02-0500 SaO2% (BldA) [Mass fraction] 99 % [facility] 06-25-2023 15:02-0500 Systolic blood pressure 120 mm[Hg] [facility] 06-07-2023 09:20-0500 Blood Pressure Location Vinnie Romero [facility] 06-07-2023 09:20-0500 Body temperature 97.88 [degF] Vinnie Romero [facility] 06-07-2023 09:20-0500 Diastolic blood pressure 79 mm[Hg] Vinnie Romero [facility] 06-07-2023 09:20-0500 Heart rate 89 /min Vinnie Romero [facility] 06-07-2023 09:20-0500 SaO2% (BldA) [Mass fraction] 99 % Vinnie Romero [facility] 06-07-2023 09:20-0500 Systolic blood pressure 119 mm[Hg] Vinnie Romero [facility] 04-21-2023 08:02-0500 Blood Pressure Location [facility] 04-21-2023 08:02-0500 Diastolic blood pressure 80 mm[Hg] [facility] 04-21-2023 08:02-0500 Heart rate 73 /min [facility] 04-21-2023 08:02-0500 SaO2% (BldA) [Mass fraction] 98 % [facility]iatric[facility] 04-21-2023 08:02-0500 Systolic blood pressure 114 mm[Hg] [facility] 02-18-2023 09:29-0400 Blood Pressure Location [facility] 02-18-2023 09:29-0400 Diastolic blood pressure 80 mm[Hg] [facility] 02-18-2023 09:29-0400 Heart rate 102 /min [facility] 02-18-2023 09:29-0400 Respiratory rate 16 /min Ellerslie Vilmajas [facility] 02-18-2023 09:29-0400 SaO2% (BldA) [Mass fraction] 98 % [facility] 02-18-2023 09:29-0400 Systolic blood pressure 120 mm[Hg] [facility] 01-07-2023 10:44-0400 Blood Pressure Location [facility] 01-07-2023 10:44-0400 Diastolic blood pressure 84 mm[Hg] [facility] 01-07-2023 10:44-0400 Heart rate 89 /min [facility] 01-07-2023 10:44-0400 SaO2% (BldA) [Mass fraction] 97 % [facility] 01-07-2023 10:44-0400 Systolic blood pressure 120 mm[Hg] [facility] 12-03-2022 11:28-0400 Blood Pressure Location [facility] 12-03-2022 11:28-0400 Diastolic blood pressure 86 mm[Hg] [facility] 12-03-2022 11:28-0400 Heart rate 97 /min [facility] 12-03-2022 11:28-0400 SaO2% (BldA) [Mass fraction] 96 % [facility] 12-03-2022 11:28-0400 Systolic blood pressure 128 mm[Hg] [facility] 09-29-2022 08:54-0400 Blood Pressure Location [facility] 09-29-2022 08:54-0400 Body temperature 98.78 [degF] [facility] 09-29-2022 08:54-0400 Diastolic blood pressure 82 mm[Hg] [facility] 09-29-2022 08:54-0400 Heart rate 92 /min [facility] 09-29-2022 08:54-0400 SaO2% (BldA) [Mass fraction] 99 % [facility] 09-29-2022 08:54-0400 Systolic blood pressure 118 mm[Hg] [facility] 11-15-2021 19:00-0400 Body height 152.4 cm Melissa Weaver Other [facility] Other 11-15-2021 19:00-0400 Body mass index (BMI) [Ratio] 40.42 kg/m2 Melissa Weaver Other [facility] Other 11-15-2021 19:00-0400 Body temperature 96 [degF] Melissa Weaver Other [facility] Other 11-15-2021 19:00-0400 Body weight 93.9 kg Melissa Weaver Other [facility] Other 11-15-2021 19:00-0400 SaO2% (BldA) [Mass fraction] 98 % Melissa Weaver Other [facility] Other Encounters Encounter Date Encounter Type Care Provider Facility Start: 03-01-2025 ambulatory Clint Ortiz Facili ty:[facility] Start: 11-21-2024 ambulatory LIZZIE MEDINA Fa cility:[facility] Start: 10-03-2024 ambulatory [facility]ugh [facility] Start: 09-19-2024 ambulatory Jojo Pugh [facility] Start: 09-05-2024 End: 09-05-2024 ambulatory Jojo Pugh [facility] Start: 08-29-2024 End: 08-29-2024 ambulatory MIKAL LOVELL Not Available Start: 08-26-2024 End: 08-26-2024 ambulatory NITHYA Higinio WILLIAMMIS Not Available Start: 08-24-2024 End: 08-24-2024 ambulatory Jojo Pugh [facility] Start: 08-22-2024 End: 08-22-2024 ambulatory [employer] LIZZIE MEDINA Facility:[facility] Start: 08-19-2024 End: 08-19-2024 ambulatory Nithya Sylvester Timmis Facility[facility] Start: 08-15-2024 End: 08-15-2024 ambulatory Jojo Pugh [facility] Start: 08-15-2024 End: 08-15-2024 Patient encounter procedure Jojo Pugh [facility] Start: 08-05-2024 End: 08-05-2024 ambulatory Jojo Pugh [facility] Start: 08-05-2024 End: 08-05-2024 Patient encounter procedure Jojo Pugh [facility] Start: 07-28-2024 End: 07-28-2024 Office outpatient new 60 minutes Jayce Trevino MD Work Phone: [facility] Comment on above: Abnormal EKG (Primar y Dx); Palpitations; SVT (supraventricular tachycardia) ([facility] BMI 39.0-39.9,adult; Current smoker; Implantable loop recorder present Start: 07-28-2024 End: 07-28-2024 ambulatory [facility] Start: 07-28-2024 End: 07-28-2024 ambulatory Alonso Winn Facility[facility] Start: 07-28-2024 End: 07-28-2024 Patient encounter procedure Alonso Winn [facility] Start: 07-19-2024 End: 07-19-2024 ambulatory [facility] Start: 07-19-2024 End: 07-19-2024 Subsequent hospital visit by physician Melissa [id number] [facility] Comment on above: Palpitations; Chest pain, unspecified; Abnormal result of other cardiovascular function study Start: 07-18-2024 End: 07-18-2024 ambulatory Jojo Pugh [facility] Start: 07-18-2024 End: 07-18-2024 Patient encounter procedure Jojo Pugh [facility] Start: 07-07-2024 End: 07-07-2024 ambulatory [employer] LIZZIE MEDINA Facility[facility] Start: 07-07-2024 End: 07-07-2024 Patient encounter procedure LIZZIE MEDINA [facility] Start: 06-29-2024 ambulatory Jojo Pugh [facility] Start: 06-23-2024 End: 06-23-2024 ambulatory LIZZIE MEDINA Facility:[facility] Start: 06-23-2024 End: 06-23-2024 Patient encounter procedure LIZZIE MEDINA [facility] Start: 06-15-2024 ambulatory Jojo Pugh [facility] Start: 06-03-2024 End: 06-03-2024 ambulatory Jojo Pugh [facility] Start: 06-03-2024 End: 06-03-2024 Patient encounter procedure Jojo Pugh [facility] Start: 06-02-2024 ambulatory Clint Lee ty:[facility] Start: 05-27-2024 End: 05-27-2024 ambulatory MD Alonso Winn Facility:[facility] Start: 05-27-2024 End: 05-27-2024 Patient encounter procedure Alonso Winn [facility] Start: 05-26-2024 End: 05-26-2024 ambulatory MD Alonso Winn Facility:[facility] Start: 05-26-2024 End: 05-26-2024 Patient encounter procedure Alonso Winn [facility] Start: 05-20-2024 End: 05-20-2024 ambulatory Jojo Pugh [facility] Start: 05-20-2024 End: 05-20-2024 Patient encounter procedure Jojo Pugh [facility] Start: 05-02-2024 End: 05-02-2024 ambulatory Jojo Pugh [facility] Start: 05-02-2024 End: 05-02-2024 Patient encounter procedure Jojo Pugh [facility] Start: 04-28-2024 End: 04-28-2024 Admission to same day surgery center Alonso Winn [facility] Start: 04-28-2024 End: 04-28-2024 ambulatory MD Alonso Winn Facility:[facility] Start: 04-27-2024 End: 04-27-2024 ambulatory MD Alonso Winn Facility:[facility] Start: 04-27-2024 End: 04-27-2024 Patient encounter procedure Alonso Winn [facility] Start: 04-22-2024 End: 04-22-2024 ambulatory Jojo Pugh [facility] Start: 04-22-2024 End: 04-22-2024 Patient encounter procedure Jojo Pugh [facility] Start: 04-11-2024 End: 04-11-2024 ambulatory MD Alonso Winn Facility:[facility] Start: 04-11-2024 End: 04-11-2024 Patient encounter procedure Alonsojimena Winn [facility] Start: 04-08-2024 End: 04-08-2024 ambulatory Jojo Pugh [facility] Start: 04-08-2024 End: 04-08-2024 Patient encounter procedure Jojo Pugh [facility] Start: 03-25-2024 End: 03-25-2024 ambulatory Jojo Pugh [facility] Start: 03-25-2024 End: 03-25-2024 Patient encounter procedure Jojo Pugh [facility] Start: 03-22-2024 End: 03-22-2024 ambulatory LIZZIE MEDINA Facility:[facility] Start: 03-22-2024 End: 03-22-2024 Patient encounter procedure LIZZIE MEDINA [facility] Start: 03-11-2024 End: 03-11-2024 ambulatory Jojo Pugh [facility] Start: 03-11-2024 End: 03-11-2024 Patient encounter procedure Jojo Pugh [facility] Start: 03-04-2024 End: 03-04-2024 ambulatory Clint Ortiz Facility:[facility] Start: 03-04-2024 End: 03-04-2024 Patient encounter procedure Clint Charles Angel [facility] Start: 02-26-2024 End: 02-26-2024 ambulatory Jojo Pugh [facility] Start: 02-26-2024 End: 02-26-2024 Patient encounter procedure Jojo Pugh [facility] Start: 02-23-2024 End: 02-23-2024 ambulatory Clint Ortiz Facility:[facility] Start: 02-23-2024 End: 02-23-2024 Patient encounter procedure Ellerslie Araceli Ortiz [facility] Start: 02-23-2024 End: 02-23-2024 Well adult monitoring check done Clint Araceli Ortiz [facility] Start: 02-22-2024 End: 02-22-2024 Bamboo flowsheet Mikal [...] 02-11-2024 End: 02-11-2024 ambulatory Mikal R NAS Facility:[facility] Start: 02-11-2024 End: 02-11-2024 Patient encounter procedure Mikal R NAS [facility] Start: 02-03-2024 End: 02-03-2024 ambulatory Jojo Pugh [facility] Start: 02-03-2024 End: 02-03-2024 Patient encounter procedure Jojo Pugh [facility] Start: 01-28-2024 End: 01-28-2024 ambulatory Clint Ortiz Facility:[facility] Start: 01-28-2024 End: 01-28-2024 Patient encounter procedure Clint Charles Maggijas [facility] Start: 01-27-2024 End: 01-27-2024 ambulatory Jojo Pugh [facility] Start: 01-27-2024 End: 01-27-2024 Patient encounter procedure Jojo Pugh [facility] Start: 01-18-2024 ambulatory Mikal NAS Facility:[facility] Start: 12-25-2023 End: 12-25-2023 ambulatory Angelique Du [...] Start: 12-23-2023 End: 12-23-2023 ambulatory Clint Ortiz Facility:[facility] Start: 12-23-2023 End: 12-23-2023 Patient encounter procedure Clint Ortiz [facility] Start: 12-21-2023 End: 12-21-2023 ambulatory DO Ho Morales Facility:[facility] Start: 12-21-2023 End: 12-21-2023 Patient encounter procedure Ho Morales [facility] Start: 12-21-2023 End: 12-21-2023 Emergency department patient visit Ho Morales [facility] Start: 10-16-2023 End: 10-16-2023 ambulatory Clint Ortiz Facility:[facility] Start: 10-16-2023 End: 10-16-2023 Patient encounter procedure Clint Ortiz [facility] Start: 10-15-2023 End: 10-15-2023 ambulatory Clint Ortiz Facility:[facility] Start: 10-15-2023 End: 10-15-2023 Patient encounter procedure Clint Araceli Esparzatorresjas [facility] Start: 08-20-2023 End: 08-20-2023 ambulatory Nithya Oquendo Facility:[facility] Start: 08-20-2023 End: 08-20-2023 Patient encounter procedure Nithya Oquendo [facility] Start: 08-17-2023 End: 08-17-2023 ambulatory EVELYNE CRACAMO Facility:[facility] Start: 08-17-2023 End: 08-17-2023 Patient encounter procedure Evelyne Carcamo DPM Work Phone: Orthopaedics Comment on above: 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); DJD (degenerative joint disease), ankle and foot, left; DJD (degenerative joint disease), ankle and foot, right; Pain in both feet 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) Start: 08-03-2023 End: 08-03-2023 ambulatory EVELYNE CARCAMO Facility:[facility] Start: 08-03-2023 End: 08-03-2023 Patient encounter procedure Cast Tech Zoe Work Phone: Orthopaedics Comment on above: 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) Start: 07-27-2023 Clinisync Result Encounter Mikal Nas DO Work Phone: [facility] External Department Unsolicited Start: 07-27-2023 Clinisync Result Encounter Mikal Nas DO Work Phone: [facility] External Department Unsolicited Start: 07-21-2023 End: 07-21-2023 ambulatory EVELYNE CARCAMO Facility:[facility] Start: 07-21-2023 End: 07-21-2023 Patient encounter procedure [employer] Tech Zoe Work Phone: Orthopaedics Comment on above: 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) Start: 07-21-2023 End: 07-21-2023 ambulatory Clint Ortiz Facility:[facility] Start: 07-20-2023 Telephone encounter Evelyne Carcamo DPM Work Phone: Orthopaedics Comment on above: Patient Request Start: 07-13-2023 End: 07-13-2023 ambulatory EVELYNE CARCAMO Facility:[facility] Start: 07-13-2023 End: 07-13-2023 Subsequent hospital visit by physician Brian Song Work Phone: Radiology Comment on above: Bilateral foot pain [M79.671, M79.672] Start: 06-25-2023 End: 06-25-2023 ambulatory Clint Ortiz Facility:[facility] Start: 06-25-2023 End: 06-25-2023 Patient encounter procedure Clint Ortiz [facility] Start: 06-25-2023 End: 06-25-2023 ambulatory Clint Ortiz Facility:[facility] Start: 06-25-2023 End: 06-25-2023 Patient encounter procedure Clint Ortiz [facility] Start: 06-07-2023 End: 06-07-2023 ambulatory [facility]ero [facility] [facility] Start: 06-07-2023 End: 06-07-2023 Patient encounter procedure Vinnie Romero [facility] Start: 04-21-2023 End: 04-21-2023 Patient encounter procedure Clint Ortiz [facility] Start: 04-20-2023 End: 04-20-2023 Patient encounter procedure Clint Ortiz [facility] Start: 02-18-2023 End: 02-18-2023 Patient encounter procedure Clint Ortiz [facility] Start: 02-18-2023 End: 02-18-2023 Well adult monitoring check done Clint Ortiz [facility] Start: 01-07-2023 End: 01-07-2023 Patient encounter procedure Clint Ortiz [facility] Start: 12-03-2022 End: 12-03-2022 Patient encounter procedure Clint Araceli Ortiz [facility] Start: 10-27-2022 End: 10-27-2022 Patient encounter procedure Clint Ortiz [facility] Start: 10-16-2022 End: 10-17-[address] MIKAL LOVELL . Facility:[facility] Start: 10-06-2022 End: 10-06-2022 Patient encounter procedure Clint Ortiz [facility] Start: 09-29-2022 End: 09-29-2022 Patient encounter procedure Clint Ortiz [facility] Start: 09-15-2022 End: 09-16-2022 [...] 11-15-2021 End: 11-15-2021 ambulatory Melissa Weaver Other [facility] Other Start: 11-15-2021 Office outpatient vi sit 25 minutes Melissa Weaver [facility] Start: 11-14-2021 End: 11-15-2021 ambulatory SHAIKH Higinio SALVADORWAVernon Facility:[facility] Start: 10-24-2021 End: 10-25-[address] MIKAL LOVELL . Facility:[facility] Start: 08-15-2021 End: 08-15-2021 ambulatory Petros Lion Other [facility] Other Start: 08-15-2021 Office outpatient ne w 30 minutes Petros Lion [facility] Procedures Date Procedure Procedure Detail Performing [...] Work Phone: Start: 07-27-2023 ALL PROGESTERONE Mikal Colbyzio DO Work Phone: Start: 07-13-2023 Radex ankle complete minimum 3 views Evelyne Carcamo DPM Work Phone: Start: 08-26-2022 Microscopic observat ion [Identifier] in Cervix by Cyto stain Melissa 1 Start: 08-26-2022 Cytp cerv/vag auto t hin layer prep mnl screen Mikal Janeo DO Work Phone: delivery only Christiano Ortiz Colonoscopy Clint Ortiz Dilation & curettage dx&/ther nonobstetric Clint Ortiz Operation on gallbladder Eriberto sarah Ortiz Structure of carpal canal (body structure) Clint Ortiz Plan of Treatment Date Care Activity Detail Author Start: 2035 Zoster Vaccines (1 o f 2) Zoster Vaccines (1 of 2) [facility] Start: 08-26-2025 Screening for malign ant neoplasm of cervix [facility] Start: 10-25-2024 End: 07-28-2025 Cardiac Device Check - In Clinic Cardiac Device Check - In Clinic Implantable Cardiac Device Routine Implantable loop recorder present Expected: 10/25/2024, Expires: 07/28/2025 [facility] Service Area Work Phone: Comment on above: Expected: 10/25/2024 , Expires: 07/28/2025 Start: 08-29-2024 End: 08-29-2024 Patient encounter procedure 08/29/2024 3:00 PM EDT Office Visit [facility] [address] [place] [address] Mikal Lovell, DO [address] [place] [address] [facility] Start: 08-26-2024 End: 08-26-2024 Patient encounter procedure 08/26/2024 11:10 AM EDT Office Visit [facility] [address] [place] [id number] Nithya Oquendo MD [address] [place] [address] [address] [place] [address] [facility] Start: 07-28-2024 End: 07-28-2024 Patient encounter procedure 07/28/2024 3:00 PM EST Office Visit [facility] Medical Office [address] [place] [address] Jayce Trevino MD [address] [place] [address] [facility] Office [facility] Start: 02-22-2024 End: 02-22-2024 Patient encounter procedure 02/22/2024 1:40 PM EDT Office Visit [facility] [address] [place] [id number] Mikal Lovell DO [address] [place] [address] Arrived [facility] Comment on above: Arrived Start: 02-14-2024 Covid-19 Vaccine ( season) Covid-19 Vaccine ( season) [facility] Start: 02-14-2024 COVID-19 Vaccine ( season) COVID-19 Vaccine ( season) [facility] Start: 02-14-2024 Influenza vaccination Influenza Vacc ine (#1) [facility] Start: 08-28-2023 End: 08-28-2023 Patient encounter procedure 08/28/2023 11:10 AM EDT Office Visit [facility] [address] [place] [address] Nithya Oquendo MD [address] [facility] [address] [place] [address] ALEX ELIZALDE Start: 06-15-2023 Behavioral Health Screening Behavioral Health Screening [facility] Start: 06-15-2023 Depression Assessment Depression Ass essment [facility] Start: 02-13-2023 Covid-19 Vaccine ( season) Covid-19 Vaccine ( season) [facility] Start: 2015 Screening for malign ant neoplasm of cervix HPV Testing [facility] Start: 2007 DTaP/Tdap/Td Vaccine s (1 - Tdap) DTaP/Tdap/Td Vaccines (1 - Tdap) [facility] Start: 2006 Screening for malign ant neoplasm of cervix [facility] Start: 2004 Hepatitis B Vaccine (1 of 3 - 19+ 3-dose series) Hepatitis B Vaccine (1 of 3 - 19+ 3-dose series) [facility] Start: 2004 Hepatitis B Vaccines (1 of 3 - 19+ 3-dose series) Hepatitis B Vaccines (1 of 3 - 19+ 3-dose series) [facility] Start: 2004 Pneumococcal Vaccine : Pediatrics and At-Risk Adult Patients (1 of 2 - PCV) Pneumococcal Vaccine: Pediatrics and At-Risk Adult Patients (1 of 2 - PCV) [facility] Start: 2004 Urine microalbumin profile DTaP,Tdap,Td Vaccine (1 - Tdap) [facility] Start: 2003 Anxiety Screening Anxiety Screening [facility] Start: 2003 Depression Screening Depression Scre ening [facility] Start: 2003 Hepatitis C screening Hepatitis C Sc reening [facility] Start: 2003 HIV screening HIV Screening [facility] Start: 1998 Varicella vaccination Varicell a Vaccines (1 of 2 - 13+ 2-dose series) [facility] Start: 1986 MMR Vaccines (1 of 1 - Standard series) MMR Vaccines (1 of 1 - Standard series) [facility] Start: 1985 Covid-19 Vaccine (#1) Covid-19 Vacci ne (#1) [facility] Start: 1985 Hepatitis B Vaccine (1 of 3 - 3-dose series) Hepatitis B Vaccine (1 of 3 - 3-dose series) [facility] Start: 1985 HIV screening HIV Screening [facility] Start: 1985 Lipid panel Lipid Panel [facility] Start: 1985 Thyroid stimulating hormone measurement TSH Level [facility] Start: 1985 Yearly Adult Physical Yearly Adult P hysical [facility] End: 07-28-2025 Cardiac Device Check - Remote Cardiac Device Check - Remote Implantable Cardiac Device Routine Implantable loop recorder present 52 Occurrences starting 07/28/2024 until 07/28/2025 [facility] Work Phone: Comment on above: 52 Occurrences start ing 07/28/2024 until 07/28/2025 [facility] Immunizations Immunization Date Immunization Notes Care Provider Earnestine park 06-23-2023 influenza, injectabl e, quadrivalent, preservative free [facility] 06-23-2023 influenza virus vacc ine, unspecified formulation Angelique MONTANO(R) [facility] 04-21-2023 influenza, injectabl e, quadrivalent, preservative free [facility] 05-05-2022 influenza virus vacc ine, unspecified formulation [facility] 05-21-2021 influenza virus vacc ine, unspecified formulation [facility] Payers Date Payer Category Payer Private Health Insurance [id number] 2024 Private Health Insurance 2024 Managed Care (Private) [facility] [id number] 2024 Private Health Insurance [id number] 2022 Unknown [id number]. 1.13.159.2. 7.3.783717.315 2019 Medicare [id number]. 1.13.159.2. 7.3.393037.315 1985 Unknown [id number] 2.16.840.1.726061.3.579.2. 593 1985 Unknown [id number] 2.16.840.1.652550.3.579.2. 593 1985 Unknown [id number] 2.16.840.1.547663.3.579.2. 593 1985 Unknown [id number] 2.16.840.1.298278.3.579.2. 593 1985 Unknown [id number] 2.16.840.1.374451.3.579.2. 593 1985 Unknown [id number] 2.16.840.1.653601.3.579.2. 593 1985 Unknown [id number] 2.16.840.1.309442.3.579.2. 593 1985 Unknown [id number] 2.16.840.1.145811.3.579.2. 593 1985 Unknown [id number] 2.16.840.1.336652.3.579.2. 593 1985 Unknown [id number] 2.16.840.1.066677.3.579.2. 593 1985 Unknown [id number] 2.16.840.1.409804.3.579.2. 593 1985 Unknown [id number] 2.16.840.1.865564.3.579.2. 593 1985 Unknown [id number] 2.16.840.1.302017.3.579.2. 593 1985 Unknown [id number] 2.16.840.1.917315.3.579.2. 593 1985 Unknown [id number] 2.16.840.1.478754.3.579.2. 593 1985 Unknown [id number] 2.16.840.1.655553.3.579.2. 727 1985 Unknown [id number] 2.16.840.1.786665.3.579.2. 727 1985 Unknown [id number] 2.16.840.1.888196.3.579.2. 727 1985 Unknown [id number] 2.16.840.1.650635.3.579.2. 727 1985 Unknown [id number] 2.16.840.1.692963.3.579.2. 727 1985 Unknown [id number] 2.16.840.1.358433.3.579.2. 727 1985 Unknown [id number] 2.16.840.1.028981.3.579.2. 727 1985 Unknown [id number] 2.16.840.1.183247.3.579.2. 727 1985 Unknown [id number] 2.16.840.1.741428.3.579.2. 727 1985 Unknown [id number] 2.16.840.1.992794.3.579.2. 727 1985 Unknown [id number] 2.16.840.1.828855.3.579.2. 72 1985 Unknown [id number] 2.16.840.1.682678.3.579.2 72 1985 Unknown [id number] 2.16.840.1.193756.3.579.2 72 1985 Unknown [id number] 2.16.840.1.365901.3.579.2 1985 Unknown [id number] 2.16.840.1.221285.3.579.2 72 1985 Unknown [id number] 2.16.840.1.936444.3.579.2 1985 Unknown [id number] 2.16.840.1.660511.3.579.2 1985 Unknown [id number] 2.16.840.1.245224.3.579.2 1985 Unknown [id number] 2.16.840.1.047173.3.579.2 1985 Unknown [id number] 2.16.840.1.077970.3.579.2 1985 Unknown [id number] 2.16.840.1.825335.3.579.2 1985 Unknown [id number] 2.16.840.1.990688.3.579.2 1985 Unknown [id number] 2.16.840.1.285241.3.579.2 1985 Unknown [id number] 2.16.840.1.721971.3.579.2 1985 Unknown [id number] 2.16.840.1.170042.3.579.2 1985 Unknown [id number] 2.16.840.1.621737.3.579.2 1985 Unknown [id number] 2.16.840.1.704216.3.579.2. 727 1985 Unknown [id number] 2.16.840.1.642584.3.579.2. 727 1985 Unknown [id number] 2.16.840.1.412680.3.579.2. 727 1985 Unknown [id number] 2.16.840.1.934061.3.579.2 72 1985 Unknown [id number] 2.16.840.1.799552.3.579.2 727 1985 Unknown [id number] 2.16.840.1.146336.3.579.2 72 1985 Unknown [id number] 2.16.840.1.672680.3.579.2 72 1985 Unknown [id number] 2.16.840.1.129031.3.579.2 72 1985 Unknown [id number] 2.16.840.1.469190.3.579.2 727 1985 Unknown [id number] 2.16.840.1.518688.3.579.2 72 1985 Unknown [id number] 2.16.840.1.852234.3.579.2 727 1985 Unknown [id number] 2.16.840.1.070266.3.579.2. 1246 1985 Unknown [id number] 2.16.840.1.591304.3.579.2. 1244 1985 Unknown [id number] 2.16.840.1.053207.3.579.2 727 1985 Unknown [id number] 2.16.840.1.291366.3.579.2. 727 1985 Unknown [id number] 2.16.840.1.629240.3.579.2. 1259 1985 Unknown [id number] 2.16.840.1.620938.3.579.2. 1259 1985 Unknown [id number] 2.16.840.1.735414.3.579.2. 1259 1985 Unknown [id number] 2.16.840.1.732374.3.579.2. 727 1985 Unknown [id number] 2.16.840.1.841986.3.579.2. 727 1985 Unknown [id number] 2.16.840.1.496681.3.579.2. 727 1985 Unknown [id number] 2.16.840.1.922294.3.579.2. 727 1985 Unknown [id number] 2.16.840.1.390593.3.579.2. 727 1985 Unknown [id number] 2.16.840.1.167551.3.579.2. 727 1985 Unknown [id number] 2.16.840.1.096535.3.579.2. 727 1985 Unknown [id number] 2.16.840.1.610105.3.579.2. 727 1985 Unknown [id number] 2.16.840.1.471352.3.579.2. 727 1959 Medicare [id number] 2.16.840.1.826209.19 1959 Unknown [id number] 2.16.840.1.775769.19 1959 Unknown [id number] Social History Date Type Detail Facility Start: 07-13-2023 End: 07-28-2024 Sex Assigned At [facility] Start: 09-29-2022 End: 01-07-2023 Tobacco smoking status Never [facility] Tobacco Current vaping o r e-cigarette use Smokeless Tobacco Use:. Vaping, 12 per day. Ready to change: No. [facility] Tobacco smoking status No Smokin g Status Entered [facility] Start: 06-07-2023 End: 06-23-2024 Tobacco smoking status Ex-smoker (finding) [facility] Tobacco smoking stat us NHIS Tobacco smoking consumption unknown [facility] Start: 07-13-2023 End: 07-28-2024 History of Social function [facility] Start: 1985 Sex Assigned At Not on file [facility] History of tobacco use Current smoker [facility] History of tobacco use [facility] Start: 11-21-2022 End: 07-28-2024 Tobacco use and exposure User of smokeless tobacco [facility] Start: 04-15-2023 End: 07-28-2024 Alcohol intake Current drinker of alcohol (finding) [facility] Start: 11-21-2022 Tobacco Comment I now use a vape [facility] Start: 11-21-2022 Alcohol Comment Rare [facility] Start: 11-14-2022 Gender identity Identifies as female gender (finding) [facility] Start: 11-14-2022 Sexual orientation Heterosexual (finding) [facility] Start: 07-09-2024 End: 07-28-2024 Exposure to SARS-CoV-2 (event) Not sure [facility] Work Phone: Start: 07-28-2024 Tobacco smoking status NHIS Smokes tobacco daily [facility] Start: 07-28-2024 Alcohol Comment socially [facility] Work Phone: Medical Equipment Procedure Code Equipment [...] Unknown 04/28/24 Unknown Chest FDA Start: 04-28-2024 Functional Status Date Assessment Result Facility 06-23-2024 Functional Status N/A [facility] 05-26-2024 Functional Status N/A [facility] 04-28-2024 Functional Status N/A [facility] 04-11-2024 Functional Status N/A [facility] 03-22-2024 Functional Status N/A [facility] 03-04-2024 Functional Status N/A [facility] 02-23-2024 Functional Status N/A [facility] 01-28-2024 Functional Status N/A [facility] 12-23-2023 Functional Status N/A [facility] 12-21-2023 Functional Status N/A [facility] 10-16-2023 Functional Status N/A [facility] 06-07-2023 Functional Status N/A [facility] 04-21-2023 Functional Status N/A [facility] 02-18-2023 Functional Status N/A [facility] 01-07-2023 Functional Status N/A [facility] 12-03-2022 Functional Status N/A [facility] Primary [facility] 09-29-2022 Functional Status N/A [facility] Primary Care Clinical Notes 04-27-2020 to 07-28-2024 Jayce Trevino MD - 07/28/2024 3:00 PM ESTPatient InstructionsEllen Hari, LATOYA - 07/19/2024 12:45 PM Duke Noriega, LATOYA - 07/19/2024 12:45 PM EST Note Date [...] for 1 episode when she was in [place] that lasted a little longer. They were [...] Jayce Trevino MD. documented in this encounter [facility] Work Phone: 07-28-2024 Instructions Jaclyn Juárez LPN - 07/28/2024 3:00 PM EST Follow up [address] Trevino is switching you from [facility] to our [facility] Clinic here in [place]. In-Clinic device clinic to be done 3 months then remotely thereafter. DID YOU KNOW We have a pharmacy here in the [facility]. They can fill all prescriptions, not just cardiac medications. Prescriptions from other pharmacies can easily be transferred to the pharmacy by the pharmacist on site. pharmacies offer FREE HOME DELIVERY on medications to anywhere in [place]. They can sync your medications. Typically prescriptions can be ready in 10 - 15 minutes. If pharmacy is unable to fill your prescription or if cost is more than your paying now the Pharmacist can easily transfer back to your Pharmacy of choice. Pharmacy phone # [phone]. Please bring all medicines, vitamins, and herbal supplements with you in original bottles to every appointment!!!! Prescriptions will not be filled unless you are compliant with your follow up appointments or have a follow up appointment scheduled as per instruction of your physician. Refills should be requested at the time of your visit. documented in this encounter [facility] Work Phone: 07-19-2024 Nurse Note Post CCTA pt denies feeling dizzy or lightheaded, denies headache. Steady on feet, skin warm pink and dry. Pt verbalized understanding of increased water intake x24 hours, educated on side effects of medications. HL removed with tip intact, manual pressure held until hemostasis achieved, 2x2 and coban to site. Pt DC home to self care [facility] Work Phone: 07-19-2024 Nurse Note Post CCTA [...] to self care documented in this encounter [facility] Work Phone: 05-01-2024 Note Echocardiology Procedure Exam Date/Time Accession # Ordering DrAnanya ECG Stress Exercise 04/27/2024 13:59 EST [id number] Alonso Winn MD CPT code 59280 Reason for Exam (ECG Stress Exercise) R07.9;Chest [...] Winn MD Transcribed by: JOLENE Technologist: KEIKO [facility] 04-28-2024 Evaluation + Plan note Extrac mando from: Title:Procedure Note Heart & Vascular Author:Alonso Shine MD Date:04/28/24 Ordered: lidocaine, 100 mg, 10 mL, Injection, SubCutaneous, q5min PRN Other (see comment) for 3 dose(s), Stop date Limited # of times, Routine, Start date 04/27/24 9:39:00 EST ECG Stress Exercise Echo Transthoracic Complete Future Appointments Appointment Date:05/02/2024 11:00:00 AM Scheduled Provider:Jojo Torres [facility] Appointment Type:BH Therapy 60 Appointment Date:05/20/2024 11:00:00 AM Scheduled Provider:Jojo Torres Location:[facility] Appointment Type:BH Therapy 60 Appointment Date:05/23/2024 02:00:00 PM Scheduled Provider:CARLOS JARAMILLO Location:[facility] Appointment Type:FM Open Appointment Date:05/26/2024 02:45:00 PM Scheduled Provider:Alonso Winn MD Location[facility] Appointment Type:Cardiology Follow Up (FT) Appointment Date:06/03/2024 11:00:00 AM Scheduled Provider:Jojo Torres Location:[facility] Appointment Type:BH Therapy 60 Appointment Date:06/15/2024 11:00:00 AM Scheduled Provider:Jojo Torres [facility] Appointment Type:BH Therapy 60 Appointment Date:06/29/2024 11:00:00 AM Scheduled Provider:Jojo Torres Location[facility] Appointment Type:BH Therapy 60 Appointment Date:07/15/2024 11:00:00 AM Scheduled Provider:Jojo Torres Location[facility] Appointment Type:BH Therapy 60 Appointment Date:07/28/2024 11:45:00 AM Scheduled Provider: Location:[facility] Appointment Type:NCV Remote Follow Up (FT) Appointment Date:03/01/2025 11:00:00 AM Scheduled Provider: Location:[facility] Appointment Type: Medicare Wellness Subsequent [facility] 11-14-2024 Hospital Discharge instructions Patient Education [...] and water are not available, use hand warehouse shift supervisor. ?Change your dressing as told by your [...] with your health care provider first. Take derj-ykt-cmmnzwj and prescription medicines only as told by [...] provider. Document Revised: 10/27/2022 Document Reviewed: 10/27/2022 [employer] Patient Education 2023 [email or web address]. Follow Up Care 04/18/2024 15:18:30 With:Alonso Winn Address: [address] [place], [place] [address] [phone] Business (1) When:05/26/2024 14:45:00 Comments:Keep scheduled appointment [facility] 11-14-2024 NoteEchocardiology Procedure Exam Date/Time Accession # Ordering Dr. Muhammad Transthoracic 04/27/2024 13:43 EST [id number] Tatum JOSEPH, Alonso Junior Complete CPT code 23999 86251 Reason for Exam (Echo Transthoracic Complete) R07.9;Chest pain Report [address] [place] [address] Adult Echocardiogram Report Name: DOMINIQUE LLAMAS Study Date: 04/27/2024 01:04 PM BP: 129/98 mmHg Patient Location: [facility] Ambulatory(s) [facility] HR: 86 : 1985 Gender: Female Height: 60 in Age: 39 yrs Ethnicity: [facility] Weight: 202 lb Reason For Study: [...] Signed by: Alonso Winn MD Transcribed by: NILESH Technologist: [facility]11-14-2024 Note Operative Report Procedure Loop recorder implant procedure note Indication: Palpitations, nonrevealing noninvasive workup Procedure description: Informed consent was obtained. The patient was brought to the cardiac suite in fasting state. Anterior chest area was prepped and draped in a regular sterile fashion. Under local anesthesia with lidocaine 1% 10 cc intradermally and subcutaneously, then Tensor[employer]-IQ3+ loop recorder serial #[id number] was implanted using a standard technique. Surgical glue was applied. No complications. Conclusion: Successful loop recorder implant Plan: Interrogations as per protocol. Assessment/Plan Ordered: lidocaine, 100 mg, 10 mL, Injection, SubCutaneous, q5min PRN Other (see comment) for 3 dose(s), Stop date Limited # of times, Routine, Start date 04/27/24 9:39:00 EST ECG Stress Exercise [facility] Comment: Electronically Signed By: Alonso Winn MD\.br\Date and Time Signed: 04/28/24 09:07 [id number] NotePatient Education - Text Procedures Implantable Loop [...] and water are not available, use hand warehouse shift supervisor. ? Change your dressing as told by [...] your health care provider first. ??? Take tzzv-tyh-sorpihe and prescription medicines only as told by [...] provider. Document Revised: 10/27/2022 Document Reviewed: 10/27/2022 [employer] Patient Education ? 2023 [email or web address].[facility] 02-24-2024 NotePatient Education Endocrinology Hypothyroidism Hypothyroidism is [...] Follow these instructions at home: ? Take kbpf-kng-zteynie and prescription medicines only as told by [...] provider. Document Revised: 06/03/2022 Document Reviewed: 06/03/2022 [employer] Patient Education ? 2023 [email or web address]. 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) 11/10/2022 Thyroid nodule ([facility]) 11/10/2022 Nontoxic multinodular goiter ([facility]) 11/21/2022 Resolved Ambulatory Problems Diagnosis Date Noted Absence of ovulation 11/10/2022 Dysmenorrhea 11/10/2022 Fibromyalgia 11/10/2022 Major depression, single episode ([facility] [facility] 11/10/2022 Morbid obesity ([facility]) 11/10/2022 Prediabetes 11/10/2022 Vitamin D deficiency 11/10/2022 Past Medical History: Diagnosis Date ADHD (attention deficit hyperactivity disorder) ([facility]) Annual physical exam Anxiety Asthma ([facility]) Bilateral club feet Dental disease Disease of thyroid gland ([facility]) Migraine ([facility]) PCOS (polycystic ovarian syndrome) Screening for hyperlipidemia HISTORY PAST MEDICAL HISTORY SOCIAL HISTORY Past Medical History: Diagnosis Date ADHD (attention deficit hyperactivity disorder) ([facility]) Annual physical exam Anxiety Asthma ([facility]) Bilateral club feet Dental disease Disease of thyroid gland (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) 11/10/2022 Migraine ([facility]) Morbid obesity ([facility]) 11/10/2022 with BMI of 40.0-44.9, adult PCOS [...] nursing note reviewed. Exam conducted with a wholesale representative present. Vitals: Estimated body mass index is [...] of: Mikal Lovell DO documented in this encounterFreeman Cancer [id number] Hospital Discharge instructions Follow Up Care 01/28/2024 16:48:20 With:Angel GIL, ROSETTA Hubbard, PED Address: [address] [place] [address] [phone] When:1 month Comments:20 min slotTo go instructions:stop lorazepamBegin clonazepam 0.5mg twice a day------*When you see providers outside of [facility], please request that they send office visit [...] starting at age 50Follow up 2 month [facility] Jose C 07-12-2024 NoteHNO ID: [id number] Author: EVELYNE CARCAMO DPM Service: ? Author [...] , HBA1C , VITD25 in the last 55399 hours. X-ray deformity foot and ankle consistent [...] appeared to be w (more content not included)...[facility]07-12-2024 History of Present illness Narrative* Evelyne [...] , HBA1C , VITD25 in the last 32197 hours. X-ray deformity foot and ankle consistent [...] patient. Evelyne Carcamo DPM documented in [facility] encounter[facility]24 NoteHNO ID: [id number] Author: ANGELIQUE DU RT(Mainor) Service: ? Author [...] PATIENT PRESENTS WITH AN IMPLANTABLE OR ATTACHED AUCTIONEER TOBACCO: No RADIOLOGY DEPARTMENT: General X-ray: Exam(s) Completed: Lower Extremity X-Ray(s): Tibia Fibula, Left PERIPHERAL IV DATA: Not applicable SIGNED BY: RT Kimmy(R) December 25, 2023 8:23 [facility]07-12-2024 History of Present illness Narrative* Angelique Du [...] PATIENT PRESENTS WITH AN IMPLANTABLE OR ATTACHED AUCTIONEER TOBACCO: No RADIOLOGY DEPARTMENT: General X-ray: Exam(s) Completed: Lower Extremity X- Ray(s): Tibia Fibula, Left PERIPHERAL IV DATA: Not applicable SIGNED BY: RT Kimmy(R) December 25, 2023 8:23 AM documented in this encounterSelect [facility], [facility]07-10-2024 Hospital Discharge instructions Patient Education 12/23/2023 15:24:34 Heat Therapy, Jyof-zz-Keqj Heat Therapy Heat therapy can help ease [...] provider. Document Revised: 04/03/2021 Document Reviewed: 04/03/2021 [employer] Patient Education 2022 [email or web address]. Follow Up Care 12/01/2023 09:47:29 With:Angel GIL, ROSETTA Hubbard, PED Address: [address] [place] [address] [phone] When:1 month Comments:20 min slotTo go instructions:When [...] that ordered*When you see providers outside of [facility], please request that they send office visit notes every time you're seen there - this helps us take better care of youFollow up 3 months [facility] [place] 07-10-2024 NotePatient Education Physical Medicine and Rehabilitation [...] provider. Document Revised: 04/03/2021 Document Reviewed: 04/03/2021 [employer] Patient Education ? 2022 [email or web address].[facility] 12-21-2023 Evaluation + Plan noteExtracted from: Title:ED Note Author:Ho Morales DO Date :12/21/23 Pain of left calf (M79.662: Pain in left lower leg) Orders: acetaminophen-oxycodone, 1 tab(s), Tab, Oral, Once, Stop date 12/21/23 3:14:00 EDT, STAT, Start date 12/21/23 3:14:00 EDT Future Appointments Appointment Date:12/23/2023 01:40:00 PM Scheduled Provider:Clint Ortiz DO Location:[facility] Appointment Type: Open Appointment Date:01/14/2024 03:20:00 PM Scheduled Provider:Clint Ortiz DO Location:[facility] Appointment Type: Open Appointment Date:02/23/2024 11:00:00 AM Scheduled Provider: Location:[facility] Appointment Type:FM Medicare Wellness Subsequent [facility]07-08-2024 Hospital Discharge instructions Patient Education 12/21/2023 03:26:22 [...] including vitamins, herbs, eye drops, creams, and ctjr-diq-zwqtwbn medicines. Any medical conditions you have. Any [...] provider. Document Revised: 02/12/2022 Document Reviewed: 10/15/2021 [employer] Patient Education 2022 [email or web address]. Follow Up Care 12/21/2023 02:58:57 With:Clint Ortiz Address: [address] [place] [address] When:12/23/2023 [facility]07-08-2024 NoteED Patient Education Note Radiology Vascular [...] including vitamins, herbs, eye drops, creams, and uvat-onf-fmoinad medicines. ? Any medical conditions you have. [...] provider. Document Revised: 02/12/2022 Document Reviewed: 10/15/2021 [employer] Patient Education ? 2022 [email or web address].[facility] 10-16-2023 Hospital Discharge instructions Follow Up Care 10/16/2023 11:53:39 With:Clint Ortiz DO, FAM, PED Address: [address] [place] [address] [phone] When:1 month Comments:20 min slotTo go instructions:I have submitted a prescription for lorazepamI recommend that you take 1/2 tablet at bedtimehydroxyzine 25mg for itching - can take up to 4 times a dayprednisone if thatdoesn't work; 20mg daily for 7 days----*When you see providers outside of [facility], please request that they send office visit [...] starting at age 50Follow up 1 month [facility] [place] 03-04-2024 NoteHNO ID: [id number] Author: ANTONIO MORENO Cast Tech Service: ? Author Type: Computer Application Developer Type: Progress Notes Filed: 08/17/2023 15:32 Note Text: Patient in today for scheduled appointment. Cast removed. Left leg cleansed with Cavilon. Examined by Dr. Carcamo. Fitted patient with a Small Tall Foam Walker for the left leg. Instructions on application, adjustments and care given. Will f/u as scheduled/prn. [facility] History of Present illness Narrative* Antonio Moreno Cast Tech - 08/17/2023 3:31 PM EST Patient in today for scheduled appointment. Cast removed. Left leg cleansed with Cavilon. Examined by Dr. Carcamo. Fitted patient with a Small Tall Foam Walker for the left leg. Instructions on application, adjustments and care given. Will f/u as scheduled/prn. SHAKIRA Mejía documented in this encounterSelect [facility], [facility]03-04-2024 NoteHNO ID: [id number] Author: EVELYNE CARCAMO DPM Service: ? Author Type: Physician Type: Progress Notes Filed: 08/17/2023 15:27 Note Text: Patient Visit for Dominique Manjinder Farhad 1985 38 year old female Date [...] , HBA1C , VITD25 in the last 23235 hours. X-ray deformity foot and ankle consistent [...] and/or coordinating care for the patient. [facility]OVAN[facility]Joint [facility] History of Present illness Narrative* Evelyne [...] , HBA1C , VITD25 in the last 46460 hours. X-ray deformity foot and ankle consistent [...] patient. Evelyne Carcamo DPM documented in this encounterSelect [facility], [facility]02-19-2024 NoteHNO ID: [id number] Author: ANTONIO MORENO Cast Tech Service: ? Author Type: Computer Application Developer Type: Progress Notes Filed: 08/03/2023 15:47 Note [...] given. Will f/u as scheduled/prn. Antonio Moreno [facility]02-19-2024 History of Present illness Narrative* Antonio Moreno [...] as scheduled/prn. SHAKIRA Mejía documented in this encounterSelect [facility], [facility]02-06-2024 NoteHNO ID: [id number] Author: ANTONIO MORENO Cast Tech Service: ? Author Type: Computer Application Developer Type: Progress Notes Filed: 07/21/2023 15:41 Note Text: Ms. Llamas has been informed that the supervising physician today is Dr. Lynch. I am carrying out the treatment plan of Dr. Carcamo. Patient came in today c/o of Cast being loose. Cast was removed and skin inspected. Skin appeared normal. Cast was reapplied. Patient instructed follow-up with doctor during next scheduled appointment/prn. Antonio Moreno [facility]02-06-2024 History of Present illness Narrative* Antonio Moreno Cast Tech - 07/21/2023 3:40 PM EST Ms. Llamas has been informed that the supervising physician today is Dr. Lynch. I am carrying out the treatment plan of Dr. Carcamo. Patient came in today c/o of Cast being loose. Cast was removed and skin inspected. Skin appeared normal. Cast was reapplied. Patient instructed follow- up with doctor during next scheduled appointment/prn. SHAKIRA Mejía documented in this encounterSelect [facility], [facility]02-06-2024 Hospital Discharge instructions Follow Up Care 07/21/2023 08:57:47 With:Clint Ortiz DO, FAM, PED Address: [address] [place] [address] [phone] When:3 months Comments:20 min slotIncrease buspirone to 15mg twice a day; and if there's room for improvement after a week, I have changed the prescription to three times a day so that you have another tablet per day availableF/u 3 month [facility] [place] 02-05-2024 Miscellaneous Notes* Telephone Encounter - Shahram [...] calling: self Call patient at: on cell [phone] (home) Was an appointment scheduled: No Closing statement: Symptom Call: Thank you for calling [facility], your call is very important. A nurse will call in approximately 2-4 hours during business hours. If this is an emergency, please contact 911. Cheyenne Mccarty documented in this encounterSelect Medical Specialty [facility], [facility]01-29-2024 NoteHNO ID: [id number] Author: ANTONIO MORENO Cast Tech Service: ? Author Type: Computer Application Developer Type: Progress Notes Filed: 07/13/2023 15:22 Note Text: Applied A Short Leg Weightbearing Cast to the left leg. Instructions on cast care given. A medium Cast Shoe was dispensed. Will f/u as scheduled/prn. Antonio Moreno [facility]01-29-2024 NoteHNO ID: [id number] Author: EVELYNE CARCAMO DPM Service: ? Author [...] , HBA1C , VITD25 in the last 14285 hours. X-ray deformity foot and ankle consistent [...] up I discussed wit (more content not included)...[facility] 07-13-2023 NoteHNO ID: [id number] Author: MAVIS REEEDR RT(R) Service: ? Author Type: Technologist Type: [...] PATIENT PRESENTS WITH AN IMPLANTABLE OR ATTACHED AUCTIONEER TOBACCO: No RADIOLOGY DEPARTMENT: General X-ray: Exam(s) Completed: Lower Extremity X-Ray(s): Ankle, Bilateral and Foot, Bilateral PERIPHERAL IV DATA: Not applicable SIGNED BY: RT Karmen(R) July 13, 2023 2:14 [facility]01-11-2024 Hospital Discharge instructions Patient Education 06/25/2023 15:58:28 Heat Therapy, Ckda-uj-Ehak Heat Therapy Heat therapy can help ease [...] provider. Document Revised: 04/03/2021 Document Reviewed: 04/03/2021 [employer] Patient Education 2022 [email or web address]. Follow Up Care 06/22/2023 09:04:37 With:Angel GIL, ROSETTA Hubbard, PED Address: [address] [place] [address] [phone] When:1 month Comments:1-2 month f/u - 20 min [facility] [place] 09-06-2023 Hospital Discharge instructions Patient Education 02/18/2023 [...] your health care provider or diet and food and nutrition supervisor (dietitian). This may include: ?Eating fewer calories. [...] provider. Document Revised: 07/28/2021 Document Reviewed: 07/28/2021 [employer] Patient Education 2022 [employer] 02/18/2023 10:46:33 BMI for Adults BMI [...] numbers. This can be done either in [place] (U.S.) or metric measurements. Note that charts and online BMI calculators are available to help you find your BMI quickly and easily without having to do these calculations yourself. To calculate your BMI in [place] (U.S.) measurements: 1.Measure your weight in pounds [...] Centers for Disease Control and Prevention: www.cdc.gov [place] Heart Association: www.heart.org National Heart, Lung, and Blood [place]: www.nhlbi.nih.gov Summary Body mass index (BMI) is a number that is calculated from a person's weight and height. BMI may help estimate how much of a person's weight is composed of fat. BMI can help identify thosewho may be at higher risk for certain medical problems. BMI can be measured using [place] measurements or metric measurements. BMI charts are used to identify whether you are underweight, normal weight, overweight, or obese. This information is not intended to replace advice given to you by your health care provider. Make sure you discuss any questions you have with your health care provider. Document Revised: 02/22/2020 Document Reviewed: 12/30/2019 [employer] Patient Education 2022 [email or web address]. 02/18/2023 10:19:14 Steps to Quit Smoking, Ppzw-ce-Pstk Steps to Quit Smoking Smoking tobacco is [...] a prescription, and some you can buy ajrm-siz-dewsqoi. Some medicines may contain a drug called [...] you. Call a phone quitline, such as 4-739-RZCO-NOW, reach out to support groups, or work [...] provider. Document Revised: 05/23/2022 Document Reviewed: 05/23/2022 [employer] Patient Education 2022 [employer] 02/18/2023 10:19:12 Steps to Quit Smoking Steps [...] require a prescription. You can also purchase pttk-upx-subdhhu medicines. Medicines may have nicotine in them [...] and encouragement. Call telephone quitlines, such as 8-816-XLIF-NOW, reach out to support groups, or work [...] provider. Document Revised: 05/23/2022 Document Reviewed: 05/23/2022 [employer] Patient Education 2022 [employer] 02/18/2023 10:19:04 Major Depressive Disorder, Adult Major [...] things, which may include: Your personality traits. [place] or conditioned behaviors or thoughts or feelings [...] your health care provider. General instructions Take tbgp-igr-dkytzif and prescription medicines only as told by your health care provider. Eat a healthy diet and get plenty of sleep. Consider joining a support group. Your health care provider may be able to recommend one. Keep all follow-up visits as told by your health care provider. This is important. Where to find more information National [place] on Mental Illness: www.leobardo.org [place]. National [place] of Mental Health: www.nimh.nih.gov Contact a health [...] department or: Call your local emergency services (273 in the U.S.). Call a suicide crisis helpline, such as the National Suicide Prevention Lifeline at or 422 in the [place]. This is open 24 hours a day in the [place] Text the Crisis Text Line at 589594 (in the [place].S.). Summary Major depressive disorder [...] provider. Document Revised: 12/25/2021 Document Reviewed: 05/12/2020 [employer] Patient Education 2022 [employer] 02/18/2023 10:19:00 Health Risks of Smoking Health [...] Department of Health and Human Services: www.smokefree.gov [place] [employer] Association: www.freedomfromsmoking.org [place] Heart Association: www.heart.org Where to find more [...] provider. Document Revised: 06/03/2022 Document Reviewed: 06/03/2022 [employer] Patient Education 2022 [email or web address]. [facility] Jose C 04-17-2023 Evaluation + Plan note Future Scheduled Tests Laboratory* HgbA1c 09/29/22 * TSH With T4fr Reflex 09/29/22 * Comprehensive Metabolic Panel 09/29/22 * Lipid Panel 09/29/22 [facility]06-03-2022 Evaluation note* Encounter Date Diagnosis Assessment [...] treatment plan. Patient left in stable condition [facility] 03-03-2022 Evaluation note* Encounter Date Diagnosis [...] of both lower extremities (ICD-10 - Q66.89) [facility] 11-13-2020 Evaluation + Plan note Future Appointments Appointment Date:04/27/2024 01:00:00 PM Scheduled Provider: [facility] Appointment Type:CV Echo (FT) Appointment Date:04/27/2024 02:00:00 PM Scheduled Provider: [facility] Appointment Type:CV Stress (FT) Appointment Date:04/28/2024 09:00:00 AM Scheduled Provider: [facility] Appointment Type:CV Loop Recorder Implanted (FT) Appointment Date:05/02/2024 11:00:00 AM Scheduled Provider:Jojo Torres [facility] Appointment Type:BH Therapy 60 Appointment Date:05/20/2024 11:00:00 AM Scheduled Provider:Jojo Torres Location:[facility] Appointment Type:BH Therapy 60 Appointment Date:05/23/2024 02:00:00 PM Scheduled Provider:CARLOS JARAMILLO Location:[facility] Jose C Appointment Type:FM Open Appointment Date:06/03/2024 11:00:00 AM Scheduled Provider:Jojo Torres Location:[facility] Appointment Type:BH Therapy 60 Appointment Date:06/15/2024 11:00:00 AM Scheduled Provider:Jojo Torres Location:[facility] Appointment Type:BH Therapy 60 Appointment Date:06/29/2024 11:00:00 AM Scheduled Provider:Jojo Torres Location:[facility] Appointment Type:BH Therapy 60 Appointment Date:07/15/2024 11:00:00 AM Scheduled Provider:Jojo Torres Location:[facility] Appointment Type:BH Therapy 60 Appointment Date:03/01/2025 11:00:00 AM Scheduled Provider: Location:[facility] Appointment Type: Medicare Wellness Subsequent Future Scheduled Tests Radiology* Echo Transthoracic Complete 04/27/24 * ECG Stress Exercise 04/27/24 [facility] evaluation + Plan note Future Appointments Appointment Date:10/06/2022 09:30:00 AM Scheduled Provider: Location:[facility] Appointment Type:PUL Pulmonary Function Test (FT) Future Scheduled Tests Laboratory* HgbA1c 09/29/22 * TSH With T4fr Reflex 09/29/22 * Comprehensive Metabolic Panel 09/29/22 * Lipid Panel 09/29/22 [facility] Evaluation + Plan note Future Appointments Appointment Date:12/03/2022 10:40:00 AM Scheduled Provider:Clint Ortiz DO Location:[facility] Appointment Type: Open Future Scheduled Tests Laboratory* HgbA1c 09/29/22 * TSH With T4fr Reflex 09/29/22 * Comprehensive Metabolic Panel 09/29/22 * [facility] Appointment Date:01/07/2023 10:20:00 AM Scheduled Provider:Clint Ortiz DO Location:[facility] Appointment Type: Open [facility] Evaluation + Plan note Future Appointments Appointment Date:02/18/2023 09:30:00 AM Scheduled Provider: Location:[facility] Appointment Type: Medicare Wellness Initial Appointment Date:02/18/2023 11:00:00 AM Scheduled Provider:Clint Ortiz DO Location:[facility] Appointment Type: Open Future Scheduled Tests Laboratory* T3 Total 02/05/23 * Basic Metabolic Panel 01/07/23 * Magnesium Level 01/07/23 * Thyroid Stimulating Hormone 02/05/23 * Free T4 02/05/23 [facility] Evaluation + Plan note Future Appointments Appointment Date:04/21/2023 08:00:00 AM Scheduled Provider:Clint Ortiz DO Location:[facility] Appointment Type: Open Appointment Date:02/23/2024 11:00:00 AM Scheduled Provider: Location:[facility] Appointment Type:FM Medicare Wellness Subsequent Future Scheduled Tests Laboratory* T3 Total 02/05/23 * Basic Metabolic Panel 01/07/23 * Magnesium Level 01/07/23 * Thyroid Stimulating Hormone 02/05/23 * Free T4 02/05/23 [facility] Evaluation + Plan note Future Appointments Appointment Date:04/21/2023 08:00:00 AM Scheduled Provider:Clint Ortiz DO Location:[facility] Appointment Type: Open Appointment Date:02/23/2024 11:00:00 AM Scheduled Provider: Location:[facility] Appointment Type: Medicare Wellness Subsequent Diagnostic Tests Pending * T3 Total [facility] Appointment Date:07/21/2023 08:00:00 AM Scheduled Provider:Clint Ortiz DO Location:[facility] Appointment Type: Open Appointment Date:02/23/2024 11:00:00 AM Scheduled Provider: Location:[facility] Appointment Type: Medicare Wellness Subsequent Future Scheduled Tests Laboratory* TSH With T4fr Reflex 05/19/23 [facility] Evaluation + Plan note Future Appointments Appointment Date:07/21/2023 08:00:00 AM Scheduled Provider:Clint Ortiz DO Location:[facility] Appointment Type: Open Appointment Date:02/23/2024 11:00:00 AM Scheduled Provider: Location:[facility] Appointment Type:FM Medicare Wellness Subsequent [facility] Evaluation + Plan note Future Appointments Appointment Date:10/16/2023 10:40:00 AM Scheduled Provider:Clint Ortiz DO Location:[facility] Appointment Type: Open Appointment Date:02/23/2024 11:00:00 AM Scheduled Provider: Location:[facility] Appointment Type: Medicare Wellness Subsequent Future Scheduled Tests Laboratory* TSH With T4fr Reflex [facility]23 [facility] Appointment Date:10/16/2023 10:40:00 AM Scheduled Provider:Clint Ortiz DO Location:[facility] Appointment Type:FM Open Appointment Date:02/23/2024 11:00:00 AM Scheduled Provider: Location:[facility] Appointment Type:FM Medicare Wellness [facility] Appointment Date:01/14/2024 03:20:00 PM Scheduled Provider:Clint Ortiz DO Location:[facility] Appointment Type:FM Open Appointment Date:02/23/2024 11:00:00 AM Scheduled Provider: Location:[facility] Appointment Type:FM Medicare Wellness Subsequent [facility] [place] Evaluation + Plan note Future Appointments Appointment Date:12/23/2023 01:40:00 PM Scheduled Provider:Clint Ortiz DO Location:[facility] Appointment Type:FM Open Appointment Date:01/14/2024 03:20:00 PM Scheduled Provider:Clint Ortiz DO Location:[facility] Appointment Type:FM Open Appointment Date:02/23/2024 11:00:00 AM Scheduled Provider: Location:[facility] Appointment Type:FM Medicare Wellness [facility] Appointment Date:01/28/2024 03:00:00 PM Scheduled Provider:Clint Ortiz DO Location:[facility] Appointment Type:FM Open Appointment Date:02/03/2024 11:00:00 AM Scheduled Provider:Jojo Torres Location:[facility] Appointment Type:BH Therapy 60 Appointment Date:02/23/2024 11:00:00 AM Scheduled Provider: Location:[facility] Appointment Type:FM Medicare Wellness Subsequent [facility] evaluation + Plan note Future Appointments Appointment Date:02/03/2024 11:00:00 AM Scheduled Provider:Jojo Torres Location:[facility] Appointment Type:BH Therapy 60 Appointment Date:02/23/2024 11:00:00 AM Scheduled Provider: Location:[facility] Appointment Type:FM Medicare Wellness Subsequent Appointment Date:03/04/2024 11:40:00 AM Scheduled Provider:Clint Ortiz DO Location:[facility] Appointment Type: Open [facility] Evaluation + Plan note Future Appointments Appointment Date:02/23/2024 11:00:00 AM Scheduled Provider: Location:[facility] Appointment Type:FM Medicare Wellness Subsequent Appointment Date:02/26/2024 02:00:00 PM Scheduled Provider:Jojo Torres Location:[facility] Appointment Type:BH Therapy 60 Appointment Date:03/04/2024 11:40:00 AM Scheduled Provider:Clint Ortiz DO Location:[facility] Appointment Type:[facility] evaluation + Plan note Future Appointments Appointment Date:02/26/2024 02:00:00 PM Scheduled Provider:Jojo Torres Location:[facility] Appointment Type:BH Therapy 60 Appointment Date:03/04/2024 11:40:00 AM Scheduled Provider:Clint Ortiz DO Location:[facility] Appointment Type:FM Open Appointment Date:03/01/2025 11:00:00 AM Scheduled Provider: Location:[facility] Appointment Type:FM Medicare Wellness Subsequent [facility] Evaluation + Plan note Future Appointments Appointment Date:03/11/2024 11:00:00 AM Scheduled Provider:Jojo Torres Location:[facility] Appointment Type:BH Therapy 60 Appointment Date:03/25/2024 11:00:00 AM Scheduled Provider:Jojo Torres Location:[facility] Appointment Type:BH Therapy 60 Appointment Date:04/08/2024 11:00:00 AM Scheduled Provider:Jojo Torres Location:[facility] Appointment Type:BH Therapy 60 Appointment Date:04/22/2024 11:00:00 AM Scheduled Provider:Jojo Torres Location:[facility] Appointment Type:BH Therapy 60 Appointment Date:05/02/2024 11:00:00 AM Scheduled Provider:Jojo Torres Location:[facility] Appointment Type:BH Therapy 60 Appointment Date:05/20/2024 11:00:00 AM Scheduled Provider:Jojo Torres Location:[facility] Appointment Type:BH Therapy 60 Appointment Date:06/02/2024 01:00:00 PM Scheduled Provider:Clint Ortiz DO Location:[facility] Appointment Type:FM Open Appointment Date:06/03/2024 11:00:00 AM Scheduled Provider:Jojo Torres Location:[facility] Appointment Type:BH Therapy 60 Appointment Date:06/15/2024 11:00:00 AM Scheduled Provider:Jojo Torres Location:[facility] Appointment Type:BH Therapy 60 Appointment Date:06/29/2024 11:00:00 AM Scheduled Provider:Jojo Torres Location:[facility] Appointment Type:BH Therapy 60 Appointment Date:07/15/2024 11:00:00 AM Scheduled Provider:Jojo Torres Location:[facility] Appointment Type:BH Therapy 60 Appointment Date:03/01/2025 11:00:00 AM Scheduled Provider: Location:[facility] Appointment Type:FM Medicare Wellness [facility] Evaluation + Plan note Future Appointments Appointment Date:03/22/2024 02:40:00 PM Scheduled Provider:CARLOS JARAMILLO Location:[facility] Appointment Type:FM New Patient - Adult Appointment Date:03/25/2024 11:00:00 AM Scheduled Provider:Jojo Torres Location:[facility] Appointment Type:BH Therapy 60 Appointment Date:04/08/2024 11:00:00 AM Scheduled Provider:Jojo Torres Location:[facility] Appointment Type:BH Therapy 60 Appointment Date:04/22/2024 11:00:00 AM Scheduled Provider:Jojo Torres Location:[facility] Appointment Type:BH Therapy 60 Appointment Date:05/02/2024 11:00:00 AM Scheduled Provider:Jojo Torres Location:[facility] Appointment Type:BH Therapy 60 Appointment Date:05/20/2024 11:00:00 AM Scheduled Provider:Jojo Torres Location:[facility] Appointment Type:BH Therapy 60 Appointment Date:06/02/2024 01:00:00 PM Scheduled Provider:Clint Ortiz DO Location:[facility] Jose C Appointment Type:FM Open Appointment Date:06/03/2024 11:00:00 AM Scheduled Provider:Jojo Torres Location:[facility] Appointment Type:BH Therapy 60 Appointment Date:06/15/2024 11:00:00 AM Scheduled Provider:Jojo Torres Location:[facility] Appointment Type:BH Therapy 60 Appointment Date:06/29/2024 11:00:00 AM Scheduled Provider:Jojo Torres Location:[facility] Appointment Type:BH Therapy 60 Appointment Date:07/15/2024 11:00:00 AM Scheduled Provider:Jojo Torres Location:[facility] Appointment Type:BH Therapy 60 Appointment Date:03/01/2025 11:00:00 AM Scheduled Provider: Location:[facility] Jose C Appointment Type: Medicare Wellness [facility] Behavior[facility] Health evaluation + Plan note Future Appointments Appointment Date:03/25/2024 11:00:00 AM Scheduled Provider:Jojo Torres Location:[facility] Appointment Type:BH Therapy 60 Appointment Date:04/08/2024 11:00:00 AM Scheduled Provider:Jojo Torres Location:[facility] Appointment Type:BH Therapy 60 Appointment Date:04/22/2024 11:00:00 AM Scheduled Provider:Jojo Torres Location:[facility] Appointment Type:BH Therapy 60 Appointment Date:05/02/2024 11:00:00 AM Scheduled Provider:Jojo Torres Location:[facility] Appointment Type:BH Therapy 60 Appointment Date:05/20/2024 11:00:00 AM Scheduled Provider:Jojo Torres Location:[facility] Appointment Type:BH Therapy 60 Appointment Date:05/23/2024 02:00:00 PM Scheduled Provider:CARLOS JARAMILLO Location:[facility] Jose C Appointment Type:FM Open Appointment Date:06/03/2024 11:00:00 AM Scheduled Provider:Jojo Torres Location:[facility] Appointment Type:BH Therapy 60 Appointment Date:06/15/2024 11:00:00 AM Scheduled Provider:Jojo Torres Location:[facility] Appointment Type:BH Therapy 60 Appointment Date:06/29/2024 11:00:00 AM Scheduled Provider:Jojo Torres Location:[facility] Appointment Type:BH Therapy 60 Appointment Date:07/15/2024 11:00:00 AM Scheduled Provider:Jojo Torres Location:[facility] Appointment Type:BH Therapy 60 Appointment Date:03/01/2025 11:00:00 AM Scheduled Provider: Location:[facility] Jose C Appointment Type:FM Medicare Wellness [facility] [place] Evaluation + Plan note Future Appointments Appointment Date:04/08/2024 11:00:00 AM Scheduled Provider:Jojo Torres Location:[facility] Appointment Type:BH Therapy 60 Appointment Date:04/22/2024 11:00:00 AM Scheduled Provider:Jojo Torres Location:[facility] Appointment Type:BH Therapy 60 Appointment Date:05/02/2024 11:00:00 AM Scheduled Provider:Jojo Torres Location:[facility] Appointment Type:BH Therapy 60 Appointment Date:05/20/2024 11:00:00 AM Scheduled Provider:Jojo Torres Location:[facility] Appointment Type:BH Therapy 60 Appointment Date:05/23/2024 02:00:00 PM Scheduled Provider:CARLOS JARAMILLO Location:[facility] Jose C Appointment Type:FM Open Appointment Date:06/03/2024 11:00:00 AM Scheduled Provider:Jojo Torres Location:[facility] Appointment Type:BH Therapy 60 Appointment Date:06/15/2024 11:00:00 AM Scheduled Provider:Jojo Torres Location:[facility] Appointment Type:BH Therapy 60 Appointment Date:06/29/2024 11:00:00 AM Scheduled Provider:Jojo Torres Location:[facility] Appointment Type:BH Therapy 60 Appointment Date:07/15/2024 11:00:00 AM Scheduled Provider:Jojo Torres Location:[facility] Appointment Type:BH Therapy 60 Appointment Date:03/01/2025 11:00:00 AM Scheduled Provider: Location:[facility] Jose C Appointment Type: Medicare Wellness [facility] Behavioral Health evaluation + Plan note Future Appointments Appointment Date:04/11/2024 01:15:00 PM Scheduled Provider:Alonso Winn MD Location[facility] Appointment Type:Cardiology New Patient (FT) Appointment Date:04/22/2024 11:00:00 AM Scheduled Provider:Jojo Torres Location:[facility] Appointment Type:BH Therapy 60 Appointment Date:05/02/2024 11:00:00 AM Scheduled Provider:Jojo Torres Location:[facility] Appointment Type:BH Therapy 60 Appointment Date:05/20/2024 11:00:00 AM Scheduled Provider:Jojo Torres Location:[facility] Appointment Type:BH Therapy 60 Appointment Date:05/23/2024 02:00:00 PM Scheduled Provider:CARLOS JARAMILLO Location:[facility] oJse C Appointment Type:FM Open Appointment Date:06/03/2024 11:00:00 AM Scheduled Provider:Jojo Torres Location:[facility] Appointment Type:BH Therapy 60 Appointment Date:06/15/2024 11:00:00 AM Scheduled Provider:Jojo Torres Location:[facility] Appointment Type:BH Therapy 60 Appointment Date:06/29/2024 11:00:00 AM Scheduled Provider:Jojo Torres Location:[facility] Appointment Type:BH Therapy 60 Appointment Date:07/15/2024 11:00:00 AM Scheduled Provider:Jojo Torres Location:[facility] Appointment Type:BH Therapy 60 Appointment Date:03/01/2025 11:00:00 AM Scheduled Provider: Location:[facility] Jose C Appointment Type: Medicare Wellness Subsequent [facility] Behavioral Health evaluation + Plan note Future Appointments Appointment Date:04/22/2024 11:00:00 AM Scheduled Provider:Jojo Torres Location:[facility] Appointment Type:BH Therapy 60 Appointment Date:05/02/2024 11:00:00 AM Scheduled Provider:Jojo Torres Location:[facility] Appointment Type:BH Therapy 60 Appointment Date:05/20/2024 11:00:00 AM Scheduled Provider:Jojo Torres Location:[facility] Appointment Type:BH Therapy 60 Appointment Date:05/23/2024 02:00:00 PM Scheduled Provider:CARLOS JARAMILLO Location:[facility] Jose C Appointment Type: Open Appointment Date:06/03/2024 11:00:00 AM Scheduled Provider:Jojo Torres Location:[facility] Appointment Type:BH Therapy 60 Appointment Date:06/15/2024 11:00:00 AM Scheduled Provider:Jojo Torres Location:[facility] Appointment Type:BH Therapy 60 Appointment Date:06/29/2024 11:00:00 AM Scheduled Provider:Jojo Torres Location:[facility] Appointment Type:BH Therapy 60 Appointment Date:07/15/2024 11:00:00 AM Scheduled Provider:Jojo Torres Location:[facility] Appointment Type:BH Therapy 60 Appointment Date:03/01/2025 11:00:00 AM Scheduled Provider: Location:[facility] Jose C Appointment Type:FM Medicare Wellness Subsequent Future Scheduled Tests Radiology* Echo Transthoracic Complete 04/11/24 * ECG Stress Exercise 04/11/24 [facility] Evaluation + Plan note Future Appointments Appointment Date:04/28/2024 09:00:00 AM Scheduled Provider: Location:[facility] Appointment Type:CV Loop Recorder Implanted (FT) Appointment Date:05/02/2024 11:00:00 AM Scheduled Provider:Jojo Torres Location:[facility] Appointment Type:BH Therapy 60 Appointment Date:05/20/2024 11:00:00 AM Scheduled Provider:Jojo Torres Location:[facility] Appointment Type:BH Therapy 60 Appointment Date:05/23/2024 02:00:00 PM Scheduled Provider:CARLOS JARAMILLO Location:[facility] Jose C Appointment Type:FM Open Appointment Date:06/03/2024 11:00:00 AM Scheduled Provider:Jojo Torres Location:[facility] Appointment Type:BH Therapy 60 Appointment Date:06/15/2024 11:00:00 AM Scheduled Provider:Jojo Torres Location:[facility] Appointment Type:BH Therapy 60 Appointment Date:06/29/2024 11:00:00 AM Scheduled Provider:Jojo Torres Location:[facility] Appointment Type:BH Therapy 60 Appointment Date:07/15/2024 11:00:00 AM Scheduled Provider:Jojo Torres Location:[facility] Appointment Type:BH Therapy 60 Appointment Date:03/01/2025 11:00:00 AM Scheduled Provider: Location:[facility] Jose C Appointment Type:FM Medicare Wellness [facility] Evaluation + Plan note Future Appointments Appointment Date:05/20/2024 11:00:00 AM Scheduled Provider:Jojo Torres Location:[facility] Appointment Type:BH Therapy 60 Appointment Date:05/23/2024 02:00:00 PM Scheduled Provider:CARLOS JARAMILLO Location:[facility] Jose C Appointment Type:FM Open Appointment Date:05/26/2024 02:45:00 PM Scheduled Provider:Alonso Winn MD Location[facility] Appointment Type:Cardiology Follow Up (FT) Appointment Date:06/03/2024 11:00:00 AM Scheduled Provider:Jojo Torres Location:[facility] Appointment Type:BH Therapy 60 Appointment Date:06/15/2024 11:00:00 AM Scheduled Provider:Jojo Torres Location:[facility] Appointment Type:BH Therapy 60 Appointment Date:06/29/2024 11:00:00 AM Scheduled Provider:Jojo Torres Location:[facility] Appointment Type:BH Therapy 60 Appointment Date:07/15/2024 11:00:00 AM Scheduled Provider:Jojo Torres Location:[facility] Appointment Type:BH Therapy 60 Appointment Date:07/28/2024 11:45:00 AM Scheduled Provider: Location:[facility] Appointment Type:NCV Remote Follow Up (FT) Appointment Date:03/01/2025 11:00:00 AM Scheduled Provider: Location:[facility] Jose C Appointment Type:FM Medicare Wellness Subsequent [facility] Behavioral Health evaluation + Plan note Future Appointments Appointment Date:03/04/2024 11:40:00 AM Scheduled Provider:Clint Ortiz DO Location:[facility] Jose C Appointment Type:FM Open Appointment Date:03/11/2024 11:00:00 AM Scheduled Provider:Jojo Torres Location:[facility] Appointment Type:BH Therapy 60 Appointment Date:03/25/2024 11:00:00 AM Scheduled Provider:Jojo Torres Location:[facility] Appointment Type:BH Therapy 60 Appointment Date:04/08/2024 11:00:00 AM Scheduled Provider:Jojo Torres Location:[facility] Appointment Type:BH Therapy 60 Appointment Date:04/22/2024 11:00:00 AM Scheduled Provider:Jojo Torres Location:[facility] Appointment Type:BH Therapy 60 Appointment Date:05/02/2024 11:00:00 AM Scheduled Provider:Jojo Torres Location:[facility] Appointment Type:BH Therapy 60 Appointment Date:05/20/2024 11:00:00 AM Scheduled Provider:Jojo Torres Location:[facility] Appointment Type:BH Therapy 60 Appointment Date:06/03/2024 11:00:00 AM Scheduled Provider:Jojo Torres Location:[facility] Appointment Type:BH Therapy 60 Appointment Date:06/15/2024 11:00:00 AM Scheduled Provider:Jojo Torres Location:[facility] Appointment Type:BH Therapy 60 Appointment Date:06/29/2024 11:00:00 AM Scheduled Provider:Jojo Torres Location:[facility] Appointment Type:BH Therapy 60 Appointment Date:07/15/2024 11:00:00 AM Scheduled Provider:Jojo Torres Location:[facility] Appointment Type:BH Therapy 60 Appointment Date:03/01/2025 11:00:00 AM Scheduled Provider: Location:[facility] Appointment Type: Medicare Wellness Subsequent [facility] Behavioral Health evaluation + Plan note Future Appointments Appointment Date:06/03/2024 11:00:00 AM Scheduled Provider:Jojo Torres Location:[facility] Appointment Type:BH Therapy 60 Appointment Date:06/23/2024 08:40:00 AM Scheduled Provider:CARLOS JARAMILLO Location:[facility] Jose C Appointment Type:FM Open Appointment Date:06/29/2024 11:00:00 AM Scheduled Provider:Jojo Torres Location:[facility] Appointment Type:BH Therapy 60 Appointment Date:07/15/2024 11:00:00 AM Scheduled Provider:Jojo Torres Location:[facility] Appointment Type:BH Therapy 60 Appointment Date:07/28/2024 11:45:00 AM Scheduled Provider: Location:[facility] Appointment Type:NCV Remote Follow Up (FT) Appointment Date:03/01/2025 11:00:00 AM Scheduled Provider: Location:[facility] Appointment Type:FM Medicare Wellness Subsequent Future Scheduled Tests Laboratory* Creatinine 05/23/24 [facility] Evaluation + Plan note Future Appointments Appointment Date:06/03/2024 11:00:00 AM Scheduled Provider:Jojo Torres Location:[facility] Appointment Type:BH Therapy 60 Appointment Date:06/23/2024 08:40:00 AM Scheduled Provider:CARLOS JARAMILLO Location:[facility] Jose C Appointment Type:FM Open Appointment Date:06/29/2024 11:00:00 AM Scheduled Provider:Jojo Torres Location:[facility] Appointment Type:BH Therapy 60 Appointment Date:07/15/2024 11:00:00 AM Scheduled Provider:Jojo Torres Location:[facility] Appointment Type:BH Therapy 60 Appointment Date:07/28/2024 11:45:00 AM Scheduled Provider: Location:[facility] Appointment Type:NCV Remote Follow Up (FT) Appointment Date:03/01/2025 11:00:00 AM Scheduled Provider: Location:[facility] Appointment Type:FM Medicare Wellness Subsequent [facility] Evaluation + Plan note Future Appointments Appointment Date:05/23/2024 02:00:00 PM Scheduled Provider:CARLOS JARAMILLO Location:[facility] Appointment Type:FM Open Appointment Date:05/26/2024 02:45:00 PM Scheduled Provider:Alonso Winn MD Location[facility] Appointment Type:Cardiology Follow Up (FT) Appointment Date:06/03/2024 11:00:00 AM Scheduled Provider:Jojo Torres Location:[facility] Appointment Type:BH Therapy 60 Appointment Date:06/29/2024 11:00:00 AM Scheduled Provider:Jojo Torres Location:[facility] Appointment Type:BH Therapy 60 Appointment Date:07/15/2024 11:00:00 AM Scheduled Provider:Jojo Torres Location:[facility] Appointment Type:BH Therapy 60 Appointment Date:07/28/2024 11:45:00 AM Scheduled Provider: Location:[facility] Appointment Type:NCV Remote Follow Up (FT) Appointment Date:03/01/2025 11:00:00 AM Scheduled Provider: Location:[facility] Appointment Type: Medicare Wellness Subsequent [facility] Behavioral Health evaluation + Plan note Future Appointments Appointment Date:06/23/2024 08:40:00 AM Scheduled Provider:CARLOS JARAMILLO Location:[facility] Appointment Type:FM Open Appointment Date:06/29/2024 11:00:00 AM Scheduled Provider:Jojo Torres Location:[facility] Appointment Type:BH Therapy 60 Appointment Date:07/15/2024 11:00:00 AM Scheduled Provider:Jojo Torres Location:[facility] Appointment Type:BH Therapy 60 Appointment Date:07/28/2024 11:45:00 AM Scheduled Provider: Location:[facility] Appointment Type:NCV Remote Follow Up (FT) Appointment Date:03/01/2025 11:00:00 AM Scheduled Provider: Location:[facility] Appointment Type:FM Medicare Wellness Subsequent [facility] Behavioral Health evaluation + Plan note Future Appointments Appointment Date:06/29/2024 11:00:00 AM Scheduled Provider:oJjo Torres Location:[facility] Appointment Type:BH Therapy 60 Appointment Date:07/15/2024 11:00:00 AM Scheduled Provider:Jojo Torres Location:[facility] Appointment Type:BH Therapy 60 Appointment Date:07/28/2024 11:45:00 AM Scheduled Provider: Location:[facility] Appointment Type:NCV Remote Follow Up (FT) Appointment Date:08/22/2024 10:00:00 AM Scheduled Provider:CARLOS JARAMILLO Location:[facility] Appointment Type:FM Open Appointment Date:03/01/2025 11:00:00 AM Scheduled Provider: Location:[facility] Appointment Type: Medicare Wellness [facility] [place] Evaluation + Plan note Future Appointments Appointment Date:07/15/2024 11:00:00 AM Scheduled Provider:Jojo Torres Location:[facility] Appointment Type:BH Therapy 60 Appointment Date:07/28/2024 11:45:00 AM Scheduled Provider: Location:[facility] Appointment Type:NCV Remote Follow Up (FT) Appointment Date:08/22/2024 10:00:00 AM Scheduled Provider:CARLOS JARAMILLO Location:[facility] Appointment Type:FM Open Appointment Date:03/01/2025 11:00:00 AM Scheduled Provider: Location:[facility] Appointment Type: Medicare Wellness [facility] evaluation + Plan note Future Appointments Appointment Date:07/28/2024 11:45:00 AM Scheduled Provider: Location:[facility] Appointment Type:NCV Remote Follow Up (FT) Appointment Date:08/05/2024 11:00:00 AM Scheduled Provider:Jojo Torres Location:[facility] Appointment Type:BH Therapy 60 Appointment Date:08/22/2024 10:00:00 AM Scheduled Provider:CARLOS JARAMILLO Location:[facility] Appointment Type:FM Open Appointment Date:03/01/2025 11:00:00 AM Scheduled Provider: Location:[facility] Appointment Type:FM Medicare Wellness [facility] Behavioral Health evaluation + Plan note Future Appointments Appointment Date:08/05/2024 11:00:00 AM Scheduled Provider:Jojo Torres [facility] [facility] Appointment Type:BH Therapy 60 Appointment Date:08/22/2024 10:00:00 AM Scheduled Provider:CARLOS JARAMILLO Location:[facility] Appointment Type:FM Open Appointment Date:10/27/2024 09:45:00 AM Scheduled Provider: Location:[facility] Appointment Type:NCV Remote Follow Up (FT) Appointment Date:03/01/2025 11:00:00 AM Scheduled Provider: Location:[facility] Appointment Type: Medicare Wellness [facility] evaluation + Plan note Future Appointments Appointment Date:08/22/2024 10:00:00 AM Scheduled Provider:CARLOS JARAMILLO Location:[facility] Appointment Type:FM Open Appointment Date:10/27/2024 09:45:00 AM Scheduled Provider: Location:[facility] Appointment Type:NCV Remote Follow Up (FT) Appointment Date:03/01/2025 11:00:00 AM Scheduled Provider: Location:[facility] Appointment Type: Medicare Wellness [facility] evaluation + Plan note Future Appointments Appointment Date:08/19/2024 12:30:00 PM Scheduled Provider: Location[facility] Appointment Type:US Thyroid/Neck/Chest (FT) Appointment Date:08/22/2024 10:00:00 AM Scheduled Provider:CARLOS JARAMILLO Location:[facility] Appointment Type:FM Open Appointment Date:08/24/2024 10:00:00 AM Scheduled Provider:Jojo Torres Location:[facility] Appointment Type:BH Therapy 60 Appointment Date:10/27/2024 09:45:00 AM Scheduled Provider: Location[facility] Appointment Type:NCV Remote Follow Up (FT) Appointment Date:03/01/2025 11:00:00 AM Scheduled Provider: Location:[facility] Jose C Appointment Type:FM Medicare Wellness Subsequent Future Scheduled Tests Radiology* US Thyroid 08/19/24 [facility] Behavior[facility] evaluation note* Diagnosis Club foot of both lower extremities- [facility] Club foot of both lower extremities- [facility] Diagnosis Club foot of both lower extremities- Primary DJD (degenerative joint disease), ankle and foot, left DJD (degenerative joint disease), ankle and foot, right Pain in both feet Pain in limb [facility] Diagnosis Club foot of both lower extremities- Primary [facility] Diagnosis Peroneal tendinitis of left lower extremity- Primary Other enthesopathy of ankle and tarsus 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 joint disease), ankle and foot, left DJD (degenerative joint disease), ankle and foot, right Pain in both feet Pain in limb [facility] Diagnosis Left leg pain Pain in limb [facility] Diagnosis Bilateral foot pain Pain in limb Bilateral ankle pain, unspecified chronicity [facility] Diagnosis Female infertility Female infertility of unspecified origin [facility] Diagnosis Palpitations Chest pain, unspecified Abnormal result of other cardiovascular function study documented in this encounter [facility] Work Phone: Evaluation note* Diagnosis Abnormal EKG- Primary Nonspecific abnormal electrocardiogram (ECG) (EKG) Palpitations SVT (supraventricular tachycardia) ([facility]) Other specified cardiac dysrhythmias BMI 39.0-39.9,adult Current smoker Implantable loop recorder present documented in this encounter [facility] Work Phone: History general Narrative - Reported* Type Description Date Medical History chronic depression Medical History PCOS Medical History fibromyalgia Surgical History corrected clubbed feet Surgical History wisdom teeth Surgical History MRSA removal right thigh Surgical History Surgical History DNC x2 Surgical History Cystectomy left ovay Surgical History gall bladder Surgical History right carpal tunnel Surgical History GI scope with 2 biopsy [facility] Other Hospital course Narrative No data available for this section [facility] Hospital Discharge instructions No data available for this section [facility] Progress note No data available for this section [facility] Reason for referral (narrative) Referred by: Clint Ortiz DO [facility] Reason for referral (narrative)* Diagnostic Procedure Only (Routine) - Closed Specialty Diagnoses / Procedures Referred By Vince matthew Referred To Contact XR IMAGING Diagnoses Left leg pain Procedures XR TIBIA FIBULA 2V AP/LAT LEFT RADIOLOGIC EXAMINATION TIBIA & FIBULA 2 VIEWS Evelyne Carcamo DPM [address] [place] [address] X[facility] [place] [address] Referral ID Status Reason Start Date Expiration Date V isits Requested Visits Authorized [id number] Closed Auto-Generate d Referral 12/24/2023 01/22/2025 1 1 T [facility] for referral (narrative)* Diagnostic Procedure Only (Routine) - Closed Specialty Diagnoses / Procedures Referred By Vince matthew Referred To Contact XR IMAGING Diagnoses Bilateral ankle pain, unspecified chronicity Procedures XR ANKLE GENERAL 3V AP/LAT/OBL BILATERAL RADEX ANKLE COMPLETE MINIMUM 3 VIEWS Evelyne Carcamo DPM [address] [place] [address] [place] [address] Referral ID Status Reason Start Date Expiration Date V isits Requested Visits Authorized [id number] Closed Auto-Generate d Referral 07/10/2023 08/08/2024 1 1 * Diagnostic Procedure Only (Routine) - Closed Specialty Diagnoses / Procedures Referred By Contac t Referred To Contact XR IMAGING Diagnoses Bilateral foot pain Procedures XR FOOT GENERAL 3V AP/LAT/OBL BILATERAL RADEX FOOT COMPLETE MINIMUM 3 VIEWS Evelyne Carcamo DPM [address] [place] [address] [place] [address] Referral ID Status Reason Start Date Expiration Date V isits Requested Visits Authorized [id number] Closed Auto-Generate d Referral 07/10/2023 08/08/2024 1 1 [facility] for referral (narrative) Referred by: CAROL ENRIQUEZ, [facility] for [facility] Narrative* Diagnostic Procedure Only (Routine) - Closed Specialty Diagnoses / Procedures Referred By Contac t Referred To Contact XR IMAGING Diagnoses Bilateral ankle pain, unspecified chronicity Procedures XR ANKLE GENERAL 3V AP/LAT/OBL BILATERAL RADEX ANKLE COMPLETE MINIMUM 3 VIEWS Evelyne Carcamo DPM [address] [place] [address] [place] [address] Referral ID Status Reason Start Date Expiration Date V isits Requested Visits Authorized [id number] Closed Auto-Generate d Referral 07/10/2023 08/08/2024 1 1 [facility] for visit Narrative* Imaging (Routine) - Authorized Specialty Diagnoses / Procedures Referred By Contac t Referred To Contact Radiology Diagnoses Palpitations Chest pain, unspecified Abnormal result of other cardiovascular function study Procedures CT angio coronary art with heartflow if score >30% Alonso Winn MD [address] [facility] [address] Phone: tel: fax: Referral ID Status Reason Start Date Expiration Date Visits Requested Visits Authorized [id number] Authorized Perform Procedure 05/23/2024 05/23/2025 1 1 [facility] Work Phone: Summary Purpose Family History No [...] both lo wer extremities (Q66.89) Referral Organization [facility] Referring Provider First Name Cheyenne Referring Provider Last Name Anh Referring Provider Specialty Nurse Augie richard Referred Organization [facility] Referred Address [address] [place], [place],[address] Referred Provider Specialty Podiatry - S urgical Chiropody Referral Priority Routine General Notes Cheyenne Avila 09:30:01 AM >referral is ready to be sent once office note is completedCheyenne Avila 08/19/2021 08:34:16 AM >note is not completed yet Additional Source Comments INFORMATION SOURCE (unrecogn ized section and content) DATE CREATED AUTHOR 08/27/2021 [facility] DATE CREATED AUTHOR AUTHOR'S ORGANIZ ATION 10/23/2022 [facility] DATE CREATED AUTHOR AUTHOR'S ORGANIZ ATION 12/31/2023 [facility] DATE CREATED AUTHOR AUTHOR'S ORGANIZ ATION 05/30/2024 [facility] DATE CREATED AUTHOR AUTHOR'S ORGANIZ ATION 06/05/2024 [facility] DATE CREATED AUTHOR AUTHOR'S ORGANIZ ATION 07/09/[address] [facility] DATE CREATED AUTHOR AUTHOR'S ORGANIZ ATION 07/19/2024 [facility] DATE CREATED AUTHOR AUTHOR'S ORGANIZ ATION 07/25/2024 [facility] DATE CREATED AUTHOR AUTHOR'S ORGANIZ ATION 07/30/2024 [facility] DATE CREATED AUTHOR AUTHOR'S ORGANIZ ATION 08/23/2024 [facility] DATE CREATED AUTHOR AUTHOR'S ORGANIZ ATION 08/31/2024 [facility] DATE CREATED AUTHOR AUTHOR'S ORGANIZ ATION 09/06/[address] [place] REASON FOR VISIT (unrecogniz ed section and content) Reason Comments Patient Request Reason Comments Established Patient Follow Up Pain Reason Comments Radiology XR Reason Comments Radiology XR Specialty Diagnoses / Procedures Referred By Contac t Referred To Contact XR IMAGING Diagnoses Left leg pain Procedures XR TIBIA FIBULA 2V AP/LAT LEFT RADIOLOGIC EXAMINATION TIBIA & FIBULA 2 VIEWS Evelyne Carcamo DPM [address] [place] [address] [place] [address] Referral ID Status Reason Start Date Expiration Date V isits Requested Visits Authorized [id number] Closed Auto-Generate d Referral 12/24/2023 01/22/2025 1 1 Reason Comments Infertility Reason Comments New Patient Visit Specialty Diagnoses / Procedures Referred By Contac t Referred To Contact Diagnoses Abnormal EKG Procedures ECG 12 lead (Clinic Performed) Jayce Trevino MD [address] [facility] [address] [place] [address] Phone: tel: fax: Referral ID Status Reason Start Date Expiration Date V isits Requested Visits Authorized [id number] Authorized 07/28/2024 07/28/2025 1 1 Patient Care team informatio n (unrecognized section and content) Counter Installer Relationship Specialty Start Date End Date Clint Ortiz II, DO [address] [place] [address] [place] [address] Referring Family Medicine 07/06/23 Counter Installer Relationship Specialty Start Date End Date Clint Ortiz DO PCP - General 11/21/22 Counter Installer Relationship Specialty Start Date End Date Clint Ortiz II, DO [address] [place] [address] [place] [address] Referring Family Medicine 07/06/23 Counter Installer Relationship Specialty Start Date End Date Clint Ortiz II, DO [address] [place] [address] [place] [address] Referring Family Medicine 07/06/23 Counter Installer Relationship Specialty Start Date End Date Clint Ortiz II, DO [address] [place] [address] [place] [address] Referring Family Medicine 07/06/23 Counter Installer Relationship Specialty Start Date End Date [place] Clint Low TIAN DO [address] [place] [address] [place] [address] Referring Family Medicine 07/06/23 Counter Installer Relationship Specialty Start Date End Date [place] Clint Low TIAN DO [address] [place] [address] [place] [address] Referring Family Medicine 07/06/23 Counter Installer Relationship Specialty Start Date End Date Vilmatorresjas Clint Low TIAN DO [address] [place] [address] [place] [address] Referring Family Medicine 07/06/23 Counter Installer Relationship Specialty Start Date End Date Clint Ortiz DO PCP - General 11/21/22 Counter Installer Relationship Specialty Start Date End Date Clint Ortiz DO PCP - General 11/21/22 Counter Installer Relationship Specialty Start Date End Date Generic Provider, [place] [address] PCP - General Yoga Teacher 07/19/24 Counter Installer Relationship Specialty Start Date End Date Generic Provider, No [place] [address] PCP - General Yoga Teacher 07/19/24 Source Comments (unrecognize d section and content) In the event this informatio n is protected by the Federal Confidentiality of Alcohol and Drug Abuse Patient Records regulations: The Federal rules restrict any use of the information to criminally investigate or prosecute any alcohol or drug abuse patient.[facility], IncIn the event this information is protected by the Federal Confidentiality of Alcohol and Drug Abuse Patient Records regulations: The Federal rules restrict any use of the information to criminally investigate or prosecute any alcohol or drug abuse patient.[facility], IncIn the event this information is protected by the Federal Confidentiality of Alcohol and Drug Abuse Patient Records regulations: The Federal rules restrict any use of the information to criminally investigate or prosecute any alcohol or drug abuse patient.[facility], IncIn the event this information is protected by the Federal Confidentiality of Alcohol and Drug Abuse Patient Records regulations: The Federal rules restrict any use of the information to criminally investigate or prosecute any alcohol or drug abuse patient.[facility], IncIn the event this information is protected by the Federal Confidentiality of Alcohol and Drug Abuse Patient Records regulations: The Federal rules restrict any use of the information to criminally investigate or prosecute any alcohol or drug abuse patient.[facility], IncIn the event this information is protected by the Federal Confidentiality of Alcohol and Drug Abuse Patient Records regulations: The Federal rules restrict any use of the information to criminally investigate or prosecute any alcohol or drug abuse patient.[facility], IncIn the event this information is protected by the Federal Confidentiality of Alcohol and Drug Abuse Patient Records regulations: The Federal rules restrict any use of the information to criminally investigate or prosecute any alcohol or drug abuse patient.[facility], IncIn the event this information is protected by the Federal Confidentiality of Alcohol and Drug Abuse Patient Records regulations: The Federal rules restrict any use of the information to criminally investigate or prosecute any alcohol or drug abuse patient.[facility], IncIn the event this information is protected by the Federal Confidentiality of Alcohol and Drug Abuse Patient Records regulations: The Federal rules restrict any use of the information to criminally investigate or prosecute any alcohol or drug abuse patient.[facility] FOR RECORDS PERTAINING TO PATIENTS WHO ARE [...] BE BASED ON THE PRIMARY CLINICAL RECORDS. [facility] [employer] [facility]. provides no warranty or guarantee of the accuracy or completeness of information in this document.
== END 2024-09-14 08:00 | disposition home or self-care (01) ==
LOC: RAD 08:02
PROVIDERS: PCP Family Medicine Adult Medicine; Visit Provider Obstetrics & Gynecology
DX: N89.8 Other specified noninflammatory disorders of vagina (principal)
CPT/HCPCS: 76830; 76856

== ENCOUNTER 2024-10-31 08:54 | Emergency (ER) | payer OTHER, MEDICARE, SELFPAY ==
[2024-10-31 08:59] VITALS: BP 140/102; PULSE 74; TEMP 36.7; O2SAT 98; BMI 34.3
--- NOTE | 2024-10-31 09:20 | US_ITS ---
[address] [address] Patient Name: ALBERTA LLAMAS MRN: [id number] date: 1985 Sex: F Assigned Patient Location: [facility] Current Patient Location: [facility] Accession/Order Number: [id number] Exam Date: 10/31/2024 10:31 Report Date: 10/31/2024 10:34 At the request of: ELIANA GAVIN MD Procedure: US pelvis transvaginal EXAMINATION TYPE: US pelvis transvaginal Grayscale, color scale Doppler, vascular duplex analysis of the bilateral ovaries DATE OF EXAM ORDERED: 10/31/2024 10:09 AM HISTORY: left lower pain /ovarina torsion, irregular bleeding, intrauterine device COMPARISON: NONE TECHNIQUE: Realtime Transvaginal and Transabdominal imaging was performed. Transvaginal imaging was utilized to better evaluate the ovaries and the endometrial stripe. Grayscale, color scale Doppler, vascular duplex analysis of the bilateral ovaries was performed to assess blood flow. FINDINGS: The uterus measures 9.2 x 5.3 x 6.0 cm. The uterus is normal in echogenicity. Endometrium: Normal thickness and appearance. Within the endometrium measures 7 mm in thickness. An intrauterine device is noted in the endometrial canal. Ovaries: The right ovary is within normal limits for songraphic evaluation. The left ovary is not visualized. Right Ovary measurements: 3.4 x 3.6 x 2.5 cm No abnormal adnexal mass is seen. No free fluid in the pelvic cul-de-sac. Vascular duplex analysis of the right ovary demonstrates normal blood flow without evidence of ovarian ischemia. US/US pelvis transvaginal IMPRESSION: Normal pelvic ultrasound. An intrauterine device appears to be in satisfactory position within the endometrial canal. The left ovary is not visualized. No evidence of right ovarian ischemia. Impression dictated by: Haja Bains M.D. 10/31/2024 10:34 AM Dictation Location: [place] [address] Electronically authenticated by: [id number] Y Date: 10/31/2024 10:34
[2024-10-31] MEDS: KETOROLAC TROMETHAMINE 60 MG/2 ML VIAL IM (09:39)
[2024-10-31 09:49] LABS: Bilirubin Urine NEGATIVE (NEGATIVE); Blood Urine TRACE-I (NEGATIVE); Clarity Urine CLEAR (CLEAR); Color Urine LT. YELLOW (YELLOW); Glucose Urine UA NEGATIVE (NEGATIVE); Ketones Urine NEGATIVE (NEGATIVE); Leukocyte Esterase Urine NEGATIVE (NEGATIVE); Nitrite Urine NEGATIVE (NEGATIVE); Protein Urine NEGATIVE (NEG/TRACE); Specific Gravity Urine <=1.005 (1.005-1.025); Urine Microscopic Indicated YES; Urobilinogen Urine 0.2 EU/dL (0.2-1.0)
[2024-10-31 09:52] LABS: HCG Qualitative Urine* NEGATIVE (NEGATIVE); Internal Control Within Normal Limits
[2024-10-31 10:07] LABS: Bacteria Urine TRACE #/HPF (NONE SEEN); Cast Seen? NONE SEEN #/LPF (NONE SEEN); Crystals Seen? None Seen #/HPF (None Seen); Mucus Urine NONE SEEN (NONE SEEN); RBC Urine 0-2 #/HPF (0-2); Squamous Epithelial Cell Urine FEW #/LPF (NONE/RARE); WBC Urine 0-2 #/HPF (NONE SEEN)
--- NOTE | 2024-10-31 11:13 | ED_ITS ---
HPI - General Chief complaint: Urogenital-Female Stated complaint: OVARIAN PAINS Time Seen by Provider: 10/31/24 09:14 Source: patient Mode of arrival: walk-in Limitations: no limitations History of Present Illness HPI Narrative: 39-year-old female coming to the ER with a left-sided lower abdominal pain initially the patient refers to that pain as her ovarian pain, she mentioned that the pain comes and goes there are certain positions that make it worse, most of the time the pain comes whenever she is standing or moving, the patient also have history of multiple joint issues and hypermobility of her joints as well Patient is not in any distress at the moment No nausea no vomiting no vaginal discharge or bleeding and the patient recently had an IUD placed No concerns for Related Data Home Medications ?Medication ?Instructions ?Recorded ?Confirmed levothyroxine 100 mcg tablet 100 mcg PO DAILY 12/15/22 10/31/24 metformin 500 mg tablet 500 mg PO BID 12/15/2210/31 methylphenidate HCl 10 mg 10 mg PO DAILY 12/15/2207/17 tablet,extended release vits no.124-ferrous fum 1 tab PO DAILY 10/31/24 27 mg iron-folic acid 800 mcg tablet ( Vitamin) aspirin 81 mg capsule 81 mg PO DAILY 10/31/2410/13 Previous Rx's ?Medication ?Instructions ?Recorded ketorolac 10 mg tablet 10 mg PO Q8H PRN pain 3 days #10 10/31/24 tabs Allergies Allergy/AdvReac Type Severity Reaction Status Date / Time ziprasidone (From [place]) Allergy Unknown Anaphylaxis Verified 10/31/24 09:04 Review of Systems ROS Status of ROS 10 or more systems reviewed and unremark able except as noted in history and below [facility] Medical History (Updated 10/31/24 @ 10:56 by Alba Schaffer MD) 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- 10) [facility] 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 (ICD-10) PCOS (polycystic ovarian syndrome) ?E28.2 - Polycystic ovarian syndrome (ICD-10) Insulin resistance ?E88.819 - Insulin resistance, unspecified (ICD-10) Asthma ?J45.909 - Unspecified asthma, uncomplicated (ICD-10) Surgical History (Updated 08/06/23 @ 09:57 by Demetria Torrez) History of esophagogastroduodenoscopy ?Z98.890 - Other specified postprocedural states (ICD-10) S/P carpal tunnel release ?Z98.890 - Other specified postprocedural states (ICD-10) History of cholecystectomy ?Z90.49 - Acquired absence of other specified parts of digestive tract (ICD- 10) H/O ovarian cystectomy ?Z98.890 - Other specified postprocedural states (ICD-10) ?Z87.42 - Personal history of other diseases of the female genital tract (ICD-10) H/O dilation and curettage ?Z98.890 - Other specified postprocedural states (ICD-10) H/O section ?Z98.891 - History of uterine scar from previous surgery (ICD-10) Encounter for incision and drainage procedure ?Z76.89 - Persons encountering health services in other specified circumstances (ICD-10) S/P bilateral foot surgery ?Z98.890 - Other specified postprocedural states (ICD-10) Social History Little interest or pleasure in doing things: not at all Feeling down, depressed, or hopeless: not at all Gender Identity: female Exam Narrative Exam Narrative: Nurses notes and vital signs reviewed and patient is not hypoxic. General: Well-appearing and in no apparent distress. Skin: Warm, dry, no pallor noted. No rash. Head: Normocephalic, atraumatic. Neck: Supple, non-tender. Eye: Pupils are equal, round and EOMI. No scleral icterus. Ears, Nose, Mouth, and Throat: TM are clear, no nasal mucosal hypertrophy. Oral mucosa is moist, no posterior oropharynx erythema, uvula is mid-line Cardiovascular: Regular Rate and Rhythm without murmur, gallop or rub. Respiratory: No accessory muscle use or respiratory distress. Lungs are clear to auscultation, no wheezing, rales or rhonchi Chest Wall: no tenderness Back: No midline thoracic or lumbar vertebral tenderness. No CVA tenderness Musculoskeletal: normal ROM, no calf or popliteal tenderness, no lower extremity edema/swelling GI: Abdomen is soft, non-distended. Normal bowel sounds. No masses appreciated. No tenderness to palpation. No rebound, guarding, or rigidity noted. There is subjective tenderness on palpation of the left lower abdomen but I could not see that the patient having any induced tenderness with palpation The patient scan shows that she have a fluid-filled bullae and some redness in the area which is mostly second to her first and second-degree burn Neurological: A&O x4. No cranial nerve dysfunction observed. No truncal ataxia. Moves all extremities. Sensation intact. Psychiatric: Cooperative and interactive. Normal mood and affect. Constitutional Vital Signs, click to edit/add: Last Vital Signs Temp 98.1 F 10/31/24 08:59 Pulse 74 10/31/24 08:59 Resp 18 10/31/24 08:59 BP 140/102 H 10/31/24 08:59 Pulse Ox 98 10/31/24 08:59 O2 Del Method Room Air 10/31/24 08:59 Course Vital Signs Vital signs: Vital Signs Temperature 98.1 F 10/31/24 08:59 Pulse Rate 74 10/31/24 08:59 Respiratory Rate 18 10/31/24 08:59 Blood Pressure 140/102 H 10/31/24 08:59 Pulse Oximetry 98 10/31/24 08:59 Oxygen Delivery Method Room Air 10/31/24 08:59 Temperature 98.1 F 10/31/24 08:59 Pulse Rate 74 10/31/24 08:59 Respiratory Rate 18 10/31/24 08:59 Blood Pressure 140/102 H 10/31/24 08:59 Pulse Oximetry 98 10/31/24 08:59 Oxygen Delivery Method Room Air 10/31/24 08:59 MDM - OB/Uterine Contractions MDM Narrative Medical decision making narrative: The patient was applying some warm compression that could be the reason for her burning to the skin The IUD was in place in the ultrasound in addition to the fact that the patient did have a right ovarian cyst but the left ovaries were not visualized I did speak with the radiologist and he mentioned that usually if there is enlargement of the ovaries that usually will be obvious on ultrasound if it is enlarged Right now the patient presentation although the patient was worried about her ovaries and her presentation is mostly concerning for possible joint pain Especially with the patient pain, mostly when she is standing and walking and the fact that she got a lot better after being treated with a Toradol I did explain to her the results of the ultrasound I explained to her that in case of there are any other concern we can do an CAT scan But the patient right now is feeling much better she will just go home with a Toradol in case of any continuous pain she is to come back to the ER to have further evaluation The patient is to follow up with primary care physician in next 2-3 days or to return to the emergency department should any of the signs or symptoms worsen or new symptoms develop. The patient agrees with the following Diagnosis and Treatment plan and the patient will be discharged home. test was negative Lab Data Labs: Lab Results 10/31/24 Range/Units 09:25 Urine Color Lt. yellow (YELLOW) Urine Clarity Clear (CLEAR) Urine pH 6.0 (5.0-9.0) Ur Specific [place] <=1.005 A (1.005-1.025) Urine Protein Negative (NEG/TRACE) mg/dL Urine Glucose (UA) Negative (NEGATIVE) mg/dL Urine Ketones Negative (NEGATIVE) mg/dL Urine Occult Blood Trace-i (NEGATIVE) Urine Nitrite Negative (NEGATIVE) Urine Bilirubin Negative (NEGATIVE) Urine Urobilinogen 0.2 (0.2-1.0) EU/dL Ur Leukocyte Esterase Negative (NEGATIVE) Urine RBC 0-2 (0-2) #/HPF Urine WBC 0-2 A (NONE SEEN) #/HPF Ur Squamous Epith Cells Few A (NONE/RARE) #/LPF Urine Crystals None seen (None Seen) #/HPF Urine Bacteria Trace A (NONE SEEN) #/HPF Urine Casts None seen (NONE SEEN) #/LPF Urine Mucus None seen (NONE SEEN) Urine HCG, Qual Negative (NEGATIVE) Discharge Plan Discharge Chief Complaint: Urogenital-Female Clinical Impression: Abdominal pain Patient Disposition: Home, Self-Care Time of Disposition Decision: 10:56 Condition: Good Prescriptions / Home Meds: New ketorolac 10 mg tablet 10 mg PO Q8H PRN (Reason: pain) 3 Days Qty: 10 0RF No Action metformin 500 mg tablet 500 mg PO BID methylphenidate HCl 10 mg tablet extended release 10 mg PO DAILY levothyroxine 100 mcg tablet 100 mcg PO DAILY Vitamin 27 mg iron- 800 mcg tablet 1 tab PO DAILY aspirin 81 mg capsule 81 mg PO DAILY Print Language: Upper Sorbian Instructions: Abdominal Pain (ED), Hip Pain (ED) Referrals: Clint Ortiz DO [Primary Care Provider] - 1 week Discharge Date/Time: 10/31/24 11:05
== END 2024-10-31 11:05 | disposition home or self-care (01) ==
PROVIDERS: Emergency Provider Emergency Medicine; PCP Family Medicine Adult Medicine
DX: R10.32 Left lower quadrant pain (principal); N83.201 Unspecified ovarian cyst, right side; Z97.5 Presence of (intrauterine) contraceptive device; Z90.49 Acquired absence of other specified parts of digestive tract
CPT/HCPCS: 76830; 81001; 84703; 96372; 99285; J1885